=== PATIENT | male | born 1935 | race Caucasian/White ===

== ENCOUNTER 2022-09-17 11:11 | Observation (INO) | payer MEDICARE, SELFPAY ==
[2022-09-17] VITALS (51 sets, daily range): BP systolic 93–145; BP diastolic 47–77; PULSE 52–90; RESP 13–31; TEMP 36.6–36.8; O2SAT 95–100; BMI 22.2; BMI 22.1
--- NOTE | 2022-09-17 11:36 | ECG_ITS ---
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
--- NOTE | 2022-09-17 11:36 | XR_ITS ---
The [address] [address] Patient Name: ROBIN PAZ MRN: [id number] date: 1935 Sex: M Assigned Patient Location: ER Current Patient Location: ER Accession/Order Number: [id number] Exam Date: 09/17/2022 12:20 Report Date: 09/17/2022 12:35 At the request of: CASTRO STOCKTON Procedure: XR chest 1V EXAM: XR chest 1V HISTORY: . chest pain . COMPARISON: None. TECHNIQUE: Single view of the chest FINDINGS: Heart and vascularity are unremarkable. Lungs are free of focal infiltrates. There were a few small granuloma in the left lung base. EKG leads overlie the chest. IMPRESSION: Small granuloma noted in the left lower lobe. No infiltrates noted. Electronically authenticated by: HATTIE PANDYA Date: 09/17/2022 12:35
[2022-09-17 11:56] LABS: Basophils Percent Auto 0.5 % (0.2-2.0); Eosinophils Absolute Auto 0.1 10^3/uL (0.0-0.7); Hematocrit 30.4 % (42.0-54.0); Immature Granulocytes Abs Auto 0.04 10^3/uL (0.00-0.03); Immature Granulocytes Pct Auto 0.5 % (0.0-0.5); Lymphocytes Absolute Auto 0.9 10^3/uL (1.2-3.8); Mean Corpuscular HGB Conc 32.9 g/dL (29.9-35.2); Mean Corpuscular Hemoglobin 29.2 pg (25.9-34.0); Mean Corpuscular Volume 88.9 fL (80.0-94.0); Mean Platelet Volume 10.3 fL (9.5-13.5); Monocytes Absolute Auto 0.5 10^3/uL (0.3-0.8); Monocytes Percent Auto 5.9 % (1.7-12.0); Neutrophils Absolute Auto 6.3 10^3/uL (1.4-6.5); Neutrophils Percent Auto 81.1 % (43.0-75.0); Platelet Count 249 10^3/uL (150-450); Red Blood Count 3.42 10^6/uL (4.70-6.10); Red Cell Distribution Width 14.1 % (11.0-15.0); White Blood Count 7.8 10^3/uL (4.0-11.0)
[2022-09-17 12:29] LABS: Alanine Aminotransferase 18 U/L (16-63); Albumin Globulin Ratio 0.9; Albumin Level 2.9 g/dL (3.4-5.0); Alkaline Phosphatase 65 U/L (46-116); Anion Gap 9.2; Aspartate Amino Transferase 15 U/L (15-37); BUN Creatinine Ratio 16.7; Bilirubin Total 0.3 mg/dL (0.2-1.0); Calcium 8.1 mg/dL (8.5-10.1); Carbon Dioxide 27.2 mmol/L (21.0-32.0); Chloride 102 mmol/L (98-107); Estimated GFR (African America >60 (>=60); Estimated GFR (Non-African Ame >60 (>=60); Globulin 3.3 g/dL; Glucose 118 mg/dL (74-106); Potassium 3.4 mmol/L (3.5-5.1); Sodium 135 mmol/L (136-145); Total Protein 6.2 g/dL (6.4-8.2); Troponin I High Sensitivity 8.1 pg/mL (4.0-76.1)
--- NOTE | 2022-09-17 13:47 | ECG_ITS ---
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
[2022-09-17] MEDS: NITROGLYCERIN 0.4 MG TAB.SUBL PO (14:19)
--- NOTE | 2022-09-17 14:48 | ED.CHESTPAI1 ---
HPI - Chest Pain General Chief Complaint: Chest Pain Stated Complaint: CHEST PAIN Time Seen by Provider: 09/17/22 12:17 Source: family Mode of arrival: Wheelchair Limitations: no limitations History of Present Illness HPI narrative: Patient presents to emergency department complaining of chest pressure. He states his had intermittent chest pains in the last couple of days. He felt slightly short of breath. He denies any cough, fever, chills. Pain is worse when he exercises, however today when he was sitting down he developed the pain and it was not going away so he came in to be evaluated. Patient denies any lower extremity edema, cramping. He denies any trauma. He denies any palpitations, paresthesias, or weakness.She denies any upper respiratory infection symptoms. He denies any nausea, vomiting, diarrhea, constipation, abdominal pain. He denies any flank pain, hematuria, dysuria. Related Data Home Medications Medication Instructions Recorded Confirmed gabapentin 300 mg capsule 300 mg PO BID 09/17/22 09/17/22 hydrocodone 5 mg-acetaminophen 325 1 tab PO BID PRN pain 09/17/22 09/17/22 mg tablet losartan 25 mg tablet 25 mg PO DAILY 09/17/22 09/17/22 oxybutynin chloride 5 mg 5 mg PO BEDTIME 09/17/22 09/17/22 tablet,extended release 24 hr tamsulosin 0.4 mg capsule 0.4 mg PO BID 09/17/22 09/17/22 Allergies Allergy/AdvReac Type Severity Reaction Status Date / Time Penicillins Allergy Severe Rash Verified 09/17/22 11:32 Review of Systems ROS Narrative ROS: Unless otherwise stated in this report the patient's positive and negative responses for review of systems for constitutional, eyes, ENT, cardiovascular, respiratory, gastrointestinal, neurological, , musculoskeletal and integument systems and related systems to the presenting problem are either stated in the history of present illness or were not pertinent or were negative for the symptoms and/or complaints related to the presenting medical problem. [facility] Medical History (Updated 09/17/22 @ 18:47 by Ana Holcomb MD) Surgical History (Updated 09/17/22 @ 16:11 by Elena Starkey) Social History Smoking status: Former smoker Exam Narrative Exam Narrative: Nurses notes and vital signs reviewed and patient is not hypoxic. General: Nontoxic, Well-appearing and in no apparent distress. Skin: Warm, dry, no pallor noted. No Rash Head: Normocephalic, atraumatic. Neck: Supple, non-tender. Eye: Pupils are equal, round and EOMI. No scleral icterus. Ears, Nose, Mouth, and Throat: TM clear, no posterior oropharynx erythema or nasal mucosal hypertrophy, uvula is mid-line Oral mucosa is moist Cardiovascular: Regular Rate and Rhythm without murmur, gallop or rub. Respiratory: No accessory muscle use or respiratory distress. Lungs are clear to auscultation, no wheezing, rales or rhonchi Chest Wall: no tenderness Back: No midline thoracic or lumbar vertebral tenderness. No CVA tenderness Musculoskeletal: normal ROM, no calf or popliteal tenderness, no lower extremity edema/swelling GI: Abdomen is soft, non-distended. Normal bowel sounds. No masses appreciated. No tenderness to palpation. No rebound, guarding, or rigidity noted. Neurological: A&O x4. No cranial nerve dysfunction observed. No truncal ataxia. Moves all extremities. Sensation intact. Psychiatric: Cooperative and interactive. Normal mood and affect. Constitutional Vital Signs - 24 hr 09/17/22 11:32 09/17/22 11:29 09/17/22 11:30 Temperature 97.9 F Pulse Rate 77 Pulse Rate [Monitor] 84 Respiratory Rate 20 15 Blood Pressure 104/61 Blood Pressure [Left Arm] 104/61 Pulse Oximetry 95 96 96 Oxygen Delivery Method Room Air 09/17/22 11:46 09/17/22 11:47 09/17/22 11:47 Temperature Pulse Rate 86 83 83 Pulse Rate [Monitor] Respiratory Rate 17 16 20 Blood Pressure 100/58 L Blood Pressure [Left Arm] Pulse Oximetry 98 97 96 Oxygen Delivery Method 09/17/22 12:01 09/17/22 12:10 09/17/22 12:14 Temperature Pulse Rate 78 84 83 Pulse Rate [Monitor] Respiratory Rate 23 16 20 Blood Pressure Blood Pressure [Left Arm] Pulse Oximetry 95 97 97 Oxygen Delivery Method 09/17/22 12:15 09/17/22 12:31 09/17/22 12:40 Temperature Pulse Rate 79 72 79 Pulse Rate [Monitor] Respiratory Rate 18 20 15 Blood Pressure 93/48 L Blood Pressure [Left Arm] Pulse Oximetry 97 98 97 Oxygen Delivery Method 09/17/22 12:50 09/17/22 12:52 09/17/22 12:52 Temperature Pulse Rate 90 68 77 Pulse Rate [Monitor] Respiratory Rate 17 19 15 Blood Pressure 114/58 L Blood Pressure [Left Arm] Pulse Oximetry 98 98 98 Oxygen Delivery Method 09/17/22 13:00 09/17/22 13:00 09/17/22 13:32 Temperature Pulse Rate 65 71 79 Pulse Rate [Monitor] Respiratory Rate 20 19 16 Blood Pressure 106/47 L 106/47 L Blood Pressure [Left Arm] Pulse Oximetry 99 98 98 Oxygen Delivery Method 09/17/22 13:47 09/17/22 13:50 09/17/22 14:00 Temperature Pulse Rate 71 73 67 Pulse Rate [Monitor] Respiratory Rate 17 15 17 Blood Pressure 110/63 Blood Pressure [Left Arm] Pulse Oximetry 99 100 Oxygen Delivery Method 09/17/22 14:00 09/17/22 14:21 09/17/22 14:25 Temperature Pulse Rate 67 84 80 Pulse Rate [Monitor] Respiratory Rate 13 17 15 Blood Pressure 104/61 103/61 Blood Pressure [Left Arm] Pulse Oximetry 99 96 96 Oxygen Delivery Method 09/17/22 14:30 09/17/22 14:35 09/17/22 14:35 Temperature Pulse Rate 69 80 76 Pulse Rate [Monitor] Respiratory Rate 20 23 15 Blood Pressure 101/59 L 106/55 L 106/55 L Blood Pressure [Left Arm] Pulse Oximetry 98 96 97 Oxygen Delivery Method 09/17/22 14:40 09/17/22 14:45 09/17/22 14:50 Temperature Pulse Rate 85 69 65 Pulse Rate [Monitor] Respiratory Rate 13 17 15 Blood Pressure 107/56 L 107/51 L 109/63 Blood Pressure [Left Arm] Pulse Oximetry 100 97 98 Oxygen Delivery Method 09/17/22 14:55 09/17/22 15:00 09/17/22 15:06 Temperature Pulse Rate 68 73 73 Pulse Rate [Monitor] Respiratory Rate 17 31 H 20 Blood Pressure 118/59 L 111/58 L 107/73 Blood Pressure [Left Arm] Pulse Oximetry 98 98 99 Oxygen Delivery Method 09/17/22 15:10 09/17/22 15:16 09/17/22 15:20 Temperature Pulse Rate 72 72 69 Pulse Rate [Monitor] Respiratory Rate 20 20 14 Blood Pressure 108/63 113/51 L 107/57 L Blood Pressure [Left Arm] Pulse Oximetry 98 99 99 Oxygen Delivery Method 09/17/22 15:25 09/17/22 15:30 09/17/22 15:36 Temperature Pulse Rate 71 65 68 Pulse Rate [Monitor] Respiratory Rate 18 15 15 Blood Pressure 109/53 L 115/61 118/58 L Blood Pressure [Left Arm] Pulse Oximetry 100 98 100 Oxygen Delivery Method 09/17/22 15:40 09/17/22 15:45 09/17/22 15:50 Temperature Pulse Rate 69 81 68 Pulse Rate [Monitor] Respiratory Rate 14 15 23 Blood Pressure 109/65 118/65 118/60 Blood Pressure [Left Arm] Pulse Oximetry 98 98 98 Oxygen Delivery Method 09/17/22 15:55 09/17/22 16:01 09/17/22 16:05 Temperature Pulse Rate 64 66 72 Pulse Rate [Monitor] Respiratory Rate 16 24 18 Blood Pressure 118/64 122/70 H 123/69 H Blood Pressure [Left Arm] Pulse Oximetry 99 100 100 Oxygen Delivery Method 09/17/22 16:07 09/17/22 16:31 09/17/22 17:01 Temperature Pulse Rate 65 65 87 Pulse Rate [Monitor] Respiratory Rate 14 15 18 Blood Pressure 118/68 122/60 H 113/55 L Blood Pressure [Left Arm] Pulse Oximetry 99 98 98 Oxygen Delivery Method 09/17/22 17:01 09/17/22 17:31 Temperature Pulse Rate 79 71 Pulse Rate [Monitor] Respiratory Rate 15 18 Blood Pressure 113/55 L 121/63 H Blood Pressure [Left Arm] Pulse Oximetry 98 98 Oxygen Delivery Method Course Vital Signs Vital signs: Vital Signs Pulse Oximetry 96 09/17/22 11:29 Temperature 97.9 F 09/17/22 11:32 Pulse Rate 71 09/17/22 17:31 Respiratory Rate 18 09/17/22 17:31 Blood Pressure 121/63 H 09/17/22 17:31 Pulse Oximetry 98 09/17/22 17:31 Oxygen Delivery Method Room Air 09/17/22 11:32 MDM - Chest Pain MDM Narrative Medical decision making narrative: Patient had an IV established lab studies were done. EKG shows atrial fibrillation. Patient has a history of atrial fibrillation. The patient complaining of chest pain when he went to the bathroom he was given 1 nitroglycerin pill and symptoms resolved completely. EKG was repeated did not show anything acute. The patient has not had a stress test or echocardiogram in over a year. 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 Patient was discussed with Dr. Srivastava for admission. Differential Diagnosis Differential diagnosis: Likely pneumothorax, stable angina, unstable angina pectoris, atypical chest pain and st elevation myocardial infarction Lab Data Attestation: I reviewed the patient's lab results. Labs: Lab Results 09/17/22 09/17/22 09/17/22 Range/Units 11:44 14:27 17:44 WBC 7.8 (4.0-11.0) 10^3/uL RBC 3.42 L (4.70-6.10) 10^6/uL Hgb 10.0 L (14.0-18.0) g/dL Hct 30.4 L (42.0-54.0) % MCV 88.9 (80.0-94.0) fL MCH 29.2 (25.9-34.0) pg MCHC 32.9 (29.9-35.2) g/dL RDW 14.1 (11.0-15.0) % Plt Count 249 (150-450) 10^3/uL MPV 10.3 (9.5-13.5) fL Neut % (Auto) 81.1 H (43.0-75.0) % Lymph % (Auto) 11.0 L (20.5-60.0) % [place] % (Auto) 5.9 (1.7-12.0) % Eos % (Auto) 1.0 (0.9-7.0) % Baso % (Auto) 0.5 (0.2-2.0) % Neut # (Auto) 6.3 (1.4-6.5) 10^3/uL Lymph # (Auto) 0.9 L (1.2-3.8) 10^3/uL [place] # (Auto) 0.5 (0.3-0.8) 10^3/uL Eos # (Auto) 0.1 (0.0-0.7) 10^3/uL Baso # (Auto) 0.0 (0.0-0.1) 10^3/uL Sodium 135 L (136-145) mmol/L Potassium 3.4 L (3.5-5.1) mmol/L Chloride 102 (98-107) mmol/L Carbon Dioxide 27.2 (21.0-32.0) mmol/L Anion Gap 9.2 BUN 15.0 (7.0-18.0) mg/dL Creatinine 0.90 (0.70-1.30) mg/dL Est GFR ( Amer) >60 (>=60) Est GFR (Non-Af Amer) >60 (>=60) BUN/Creatinine Ratio 16.7 Glucose 118 H (74-106) mg/dL Calcium 8.1 L (8.5-10.1) mg/dL Total Bilirubin 0.3 (0.2-1.0) mg/dL AST 15 (15-37) U/L ALT 18 (16-63) U/L Troponin I High Sens 8.1 7.3 8.3 (4.0-76.1) pg/mL NT-Pro-B Natriuret Pep 453.0 (<=1800.0) pg/mL Total Protein 6.2 L (6.4-8.2) g/dL Albumin 2.9 L (3.4-5.0) g/dL Globulin 3.3 g/dL Albumin/Globulin Ratio 0.9 ECG Data Attestation: I personally reviewed and interpreted this ECG as follows: (Atrial fibrillation with a controlled rate. No acute ischemic changes.) Discharge Plan Discharge Chief Complaint: Chest Pain Clinical Impression: Chest pain Patient Disposition: Admitted as Observation Time of Disposition Decision: 18:05 Condition: Good
[2022-09-17 14:49] LABS: Troponin I High Sensitivity 7.3 pg/mL (4.0-76.1)
--- NOTE | 2022-09-17 17:12 | PC.NURSE ---
He reports the doctor was in briefly. He talked about getting food and also reports he will need it for his also.
[2022-09-17 18:06] LABS: Troponin I High Sensitivity 8.3 pg/mL (4.0-76.1)
[2022-09-17] MEDS: FAMOTIDINE/PF 20 MG/2 ML VIAL IV (20:44)
[2022-09-17] MEDS: HYDROCODONE/ACETAMINOPHEN 5-325 MG TABLET 1 TAB PO (21:46)
[2022-09-17] MEDS: GABAPENTIN 300 MG CAPSULE PO (21:46)
[2022-09-17] MEDS: TEMAZEPAM 15 MG CAPSULE PO (21:48)
[2022-09-18] VITALS: PULSE 67
[2022-09-18 02:00] VITALS: PULSE 65
[2022-09-18 04:01] VITALS: PULSE 57
[2022-09-18] MEDS: FAMOTIDINE/PF 20 MG/2 ML VIAL IV (05:08)
[2022-09-18 05:24] LABS: Basophils Percent Auto 0.7 % (0.2-2.0); Eosinophils Absolute Auto 0.3 10^3/uL (0.0-0.7); Eosinophils Percent Auto 5.1 % (0.9-7.0); Hematocrit 29.6 % (42.0-54.0); Hemoglobin 9.7 g/dL (14.0-18.0); Immature Granulocytes Abs Auto 0.02 10^3/uL (0.00-0.03); Immature Granulocytes Pct Auto 0.4 % (0.0-0.5); Lymphocytes Absolute Auto 1.8 10^3/uL (1.2-3.8); Lymphocytes Percent Auto 32.4 % (20.5-60.0); Mean Corpuscular HGB Conc 32.8 g/dL (29.9-35.2); Mean Corpuscular Hemoglobin 29.8 pg (25.9-34.0); Mean Corpuscular Volume 90.8 fL (80.0-94.0); Mean Platelet Volume 9.9 fL (9.5-13.5); Monocytes Absolute Auto 0.5 10^3/uL (0.3-0.8); Monocytes Percent Auto 9.6 % (1.7-12.0); Neutrophils Absolute Auto 2.8 10^3/uL (1.4-6.5); Neutrophils Percent Auto 51.8 % (43.0-75.0); Platelet Count 236 10^3/uL (150-450); Red Blood Count 3.26 10^6/uL (4.70-6.10); Red Cell Distribution Width 14.1 % (11.0-15.0); White Blood Count 5.4 10^3/uL (4.0-11.0)
[2022-09-18 05:46] VITALS: BP 119/62; PULSE 58; RESP 16; TEMP 36.4; O2SAT 96
[2022-09-18 06:02] VITALS: PULSE 63
[2022-09-18 06:06] LABS: Alanine Aminotransferase 17 U/L (16-63); Albumin Globulin Ratio 0.8; Albumin Level 2.6 g/dL (3.4-5.0); Alkaline Phosphatase 61 U/L (46-116); Anion Gap 8.1; Aspartate Amino Transferase 12 U/L (15-37); BUN Creatinine Ratio 16.5; Bilirubin Total 0.3 mg/dL (0.2-1.0); Calcium 7.8 mg/dL (8.5-10.1); Carbon Dioxide 30.5 mmol/L (21.0-32.0); Chloride 105 mmol/L (98-107); Estimated GFR (African America >60 (>=60); Estimated GFR (Non-African Ame >60 (>=60); Globulin 3.1 g/dL; Glucose 79 mg/dL (74-106); Potassium 3.6 mmol/L (3.5-5.1); Sodium 140 mmol/L (136-145); Total Protein 5.7 g/dL (6.4-8.2)
[2022-09-18 06:09] LABS: Troponin I High Sensitivity 11.1 pg/mL (4.0-76.1)
[2022-09-18 08:05] VITALS: PULSE 57
--- NOTE | 2022-09-18 08:51 | CA_ITS ---
Patient: ROBIN PAZ Exam Date: 09/18/2022 : 1935 Gender:M Ordering : DR Rajesh Srivastava . Admission #: [id number] Family : JAYLON LYNCH [facility] Order #: [id number] CLICK HERE TO VIEW EXAM ECHOCARDIOGRAM REPORT PROCEDURE: CA ECHO DOPPLER COMPLETE INDICATIONS: Chest pain COMPARISON: None. DESCRIPTION: COMPLETE ECHOCARDIOGRAM Real-time transthoracic echocardiography with 2D, M-mode, spectral and color flow Doppler performed. QUALITY: Technical quality was good. LEFT VENTRICLE: Normal chamber size. Mild concentric left ventricular hypertrophy. Global left ventricular systolic function is normal. LV EF: Estimated left ventricular ejection fraction is 55-60% DIASTOLIC: Diastolic function is indeterminate. ATRIAL SEPTUM: LEFT ATRIUM: Mild dilatation. RIGHT ATRIUM: Normal chamber size. RIGHT VENTRICLE: Normal chamber size. Normal right ventricular systolic function. TRICUSPID VALVE: Normal mobility and thickness. No stenosis with mild regurgitation. Mild pulmonary hypertension. RVSP 36 mmHg MITRAL VALVE: Normal mobility and thickness. No evidence of mitral valve stenosis. There is no mitral annular calcification. Mild mitral regurgitation. AORTIC VALVE: Normal trileaflet appearance. Mildly calcified aortic valve. Mildly diminished mobility. No evidence of aortic valve stenosis. Trivial aortic regurgitation. AORTIC ROOT: Moderately dilated, measuring 4.4 cm. 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 PULMONIC VALVE: Normal thickness and mobility. No stenosis. No regurgitation. PERICARDIUM: No evidence of pericardial effusion. IVC: Collapses with inspirations. Normal size. PLEURA: CONCLUSION: 1. Normal ventricular systolic function. Estimated LVEF is 55 to 60%. 2. Mild mitral and tricuspid regurgitation. 3. Mildly calcified aortic valve with no significant stenosis or regurgitation. 4. Mildly elevated right-sided pressures. 5. 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 Adult Echocardiography Procedure Report Left Ventricle LVEDD (3.7 - 5.6 cm): 3.80 cm LVESD (2.2 - 4.0 cm): 2.50 cm LVIVS thickness (0.6 - 1.2 cm): 1.32 cm LVPW thickness (0.5 - 1.0 cm): 1.33 cm e': 0.08 m/s E - e': 8.90 LVOT Max Gradient: 3.52 mm[Hg], 4.06 mm[Hg] LVOT Area (cm2): 0.97 m/s Peak Velocity (LVOT): 0.94 m/s, 1.01 m/s Mean Velocity (LVOT): 0.69 m/s LVOT Diameter 2.23 cm Left Ventricular Ejection Fraction: 55-60 % Left Atrium LA Volume Index (2D A2C): 38.37 ml/m2 Left Atrium Systolic Dimension: 3.27 cm Mitral Valve MV E to A Ratio: 1.10 Mitral Valve A-Wave Peak Velocity: 0.65 m/s Mitral Valve E-Wave Peak Velocity: 0.71 m/s Right Ventricle RV Internal Diastolic Dimension: 3.77 cm Aorta AO Root Diam: 4.43 cm Ascending Ao Diam: 4.49 cm Aortic Valve AoV Area (Peak [place]): 2.40 cm2, 2.31 cm2 AoV Area (VTI): 2.27 cm2, 2.39 cm2 Peak Velocity(Antegrade Flow): 1.58 m/s Peak Gradient(Antegrade Flow): 10.04 mm[Hg] Mean Velocity(Antegrade Flow): 1.08 m/s Mean Gradient(Antegrade Flow): 5.33 mm[Hg] Velocity Time Integral: 42.15 cm Tricuspid Valve Peak Velocity (Regurgitant Flow): 2.63 m/s, 2.86 m/s, 2.29 m/s, 2.27 m/s, 2.33 m/s Pulmonic Valve Mean Gradient: 1.43 mm[Hg], 1.42 mm[Hg] Mean Velocity: 0.58 m/s, 0.57 m/s Peak Velocity: 0.73 m/s Peak Gradient: 2.13 mm[Hg], 2.13 mm[Hg] Right Atrium Right Atrium Systolic Pressure: 43.34 ml, 43.34 ml Dictated by: Kun uG M.D. on 09/20/2022 at 10:08 Approved by: Kun Gu M.D. on 09/20/2022 at 10:14
--- NOTE | 2022-09-18 09:46 | P.HP_ITS ---
H&P: HPI History of Present Illness Chief complaint: CHEST PAIN Narrative: Patient presented to the emergency room with left-sided chest pain and pressure into the left arm. Resolved essentially in the emergency room. Work-up so far completed is negative. Echocardiogram is pending. [facility] Medical History (Updated 09/17/22 @ 18:47 by Ana Holcomb MD) Surgical History (Updated 09/17/22 @ 16:11 by Elena Starkey) Social History Smoking status: Former smoker Meds Home Medications and Allergies Home Medications Medication Instructions Recorded Confirmed Type gabapentin 300 mg capsule 300 mg PO BID 09/17/22 09/17/22 History hydrocodone 5 mg-acetaminophen 325 1 tab PO BID PRN pain 09/17/22 09/17/22 History mg tablet losartan 25 mg tablet 25 mg PO DAILY 09/17/22 09/17/22 History oxybutynin chloride 5 mg 5 mg PO BEDTIME 09/17/22 09/17/22 History tablet,extended release 24 hr tamsulosin 0.4 mg capsule 0.4 mg PO BID 09/17/22 09/17/22 History aspirin 81 mg capsule 81 mg PO DAILY #30 caps 09/18/22 Rx Allergies Allergy/AdvReac Type Severity Reaction Status Date / Time Penicillins Allergy Severe Rash Verified 09/17/22 11:32 Exam Constitutional Vital Signs - 24 hr 09/17/22 11:32 09/17/22 11:29 09/17/22 11:30 Temperature 97.9 F Pulse Rate 77 Pulse Rate [Monitor] 84 Respiratory Rate 20 15 Blood Pressure 104/61 Blood Pressure [Left Arm] 104/61 Pulse Oximetry 95 96 96 Oxygen Delivery Method Room Air 09/17/22 11:46 09/17/22 11:47 09/17/22 11:47 Temperature Pulse Rate 86 83 83 Pulse Rate [Monitor] Respiratory Rate 17 16 20 Blood Pressure 100/58 L Blood Pressure [Left Arm] Pulse Oximetry 98 97 96 Oxygen Delivery Method 09/17/22 12:01 09/17/22 12:10 09/17/22 12:14 Temperature Pulse Rate 78 84 83 Pulse Rate [Monitor] Respiratory Rate 23 16 20 Blood Pressure Blood Pressure [Left Arm] Pulse Oximetry 95 97 97 Oxygen Delivery Method 09/17/22 12:15 09/17/22 12:31 09/17/22 12:40 Temperature Pulse Rate 79 72 79 Pulse Rate [Monitor] Respiratory Rate 18 20 15 Blood Pressure 93/48 L Blood Pressure [Left Arm] Pulse Oximetry 97 98 97 Oxygen Delivery Method 09/17/22 12:50 09/17/22 12:52 09/17/22 12:52 Temperature Pulse Rate 90 68 77 Pulse Rate [Monitor] Respiratory Rate 17 19 15 Blood Pressure 114/58 L Blood Pressure [Left Arm] Pulse Oximetry 98 98 98 Oxygen Delivery Method 09/17/22 13:00 09/17/22 13:00 09/17/22 13:32 Temperature Pulse Rate 65 71 79 Pulse Rate [Monitor] Respiratory Rate 20 19 16 Blood Pressure 106/47 L 106/47 L Blood Pressure [Left Arm] Pulse Oximetry 99 98 98 Oxygen Delivery Method 09/17/22 13:47 09/17/22 13:50 09/17/22 14:00 Temperature Pulse Rate 71 73 67 Pulse Rate [Monitor] Respiratory Rate 17 15 17 Blood Pressure 110/63 Blood Pressure [Left Arm] Pulse Oximetry 99 100 Oxygen Delivery Method 09/17/22 14:00 09/17/22 14:21 09/17/22 14:25 Temperature Pulse Rate 67 84 80 Pulse Rate [Monitor] Respiratory Rate 13 17 15 Blood Pressure 104/61 103/61 Blood Pressure [Left Arm] Pulse Oximetry 99 96 96 Oxygen Delivery Method 09/17/22 14:30 09/17/22 14:35 09/17/22 14:35 Temperature Pulse Rate 69 80 76 Pulse Rate [Monitor] Respiratory Rate 20 23 15 Blood Pressure 101/59 L 106/55 L 106/55 L Blood Pressure [Left Arm] Pulse Oximetry 98 96 97 Oxygen Delivery Method 09/17/22 14:40 09/17/22 14:45 09/17/22 14:50 Temperature Pulse Rate 85 69 65 Pulse Rate [Monitor] Respiratory Rate 13 17 15 Blood Pressure 107/56 L 107/51 L 109/63 Blood Pressure [Left Arm] Pulse Oximetry 100 97 98 Oxygen Delivery Method 09/17/22 14:55 09/17/22 15:00 09/17/22 15:06 Temperature Pulse Rate 68 73 73 Pulse Rate [Monitor] Respiratory Rate 17 31 H 20 Blood Pressure 118/59 L 111/58 L 107/73 Blood Pressure [Left Arm] Pulse Oximetry 98 98 99 Oxygen Delivery Method 09/17/22 15:10 09/17/22 15:16 09/17/22 15:20 Temperature Pulse Rate 72 72 69 Pulse Rate [Monitor] Respiratory Rate 20 20 14 Blood Pressure 108/63 113/51 L 107/57 L Blood Pressure [Left Arm] Pulse Oximetry 98 99 99 Oxygen Delivery Method 09/17/22 15:25 09/17/22 15:30 09/17/22 15:36 Temperature Pulse Rate 71 65 68 Pulse Rate [Monitor] Respiratory Rate 18 15 15 Blood Pressure 109/53 L 115/61 118/58 L Blood Pressure [Left Arm] Pulse Oximetry 100 98 100 Oxygen Delivery Method 09/17/22 15:40 09/17/22 15:45 09/17/22 15:50 Temperature Pulse Rate 69 81 68 Pulse Rate [Monitor] Respiratory Rate 14 15 23 Blood Pressure 109/65 118/65 118/60 Blood Pressure [Left Arm] Pulse Oximetry 98 98 98 Oxygen Delivery Method 09/17/22 15:55 09/17/22 16:01 09/17/22 16:05 Temperature Pulse Rate 64 66 72 Pulse Rate [Monitor] Respiratory Rate 16 24 18 Blood Pressure 118/64 122/70 H 123/69 H Blood Pressure [Left Arm] Pulse Oximetry 99 100 100 Oxygen Delivery Method 09/17/22 16:07 09/17/22 16:31 09/17/22 17:01 Temperature Pulse Rate 65 65 87 Pulse Rate [Monitor] Respiratory Rate 14 15 18 Blood Pressure 118/68 122/60 H 113/55 L Blood Pressure [Left Arm] Pulse Oximetry 99 98 98 Oxygen Delivery Method 09/17/22 17:01 09/17/22 17:31 09/17/22 18:51 Temperature 98.3 F Pulse Rate 79 71 52 L Pulse Rate [Monitor] Respiratory Rate 15 18 18 Blood Pressure 113/55 L 121/63 H Blood Pressure [Left Arm] 145/77 H Pulse Oximetry 98 98 95 Oxygen Delivery Method Room Air 09/17/22 20:06 09/17/22 20:00 09/17/22 21:05 Temperature 98 F Pulse Rate 74 67 Pulse Rate [Monitor] 67 Respiratory Rate 18 Blood Pressure Blood Pressure [Left Arm] 122/64 H Pulse Oximetry 96 Oxygen Delivery Method 09/17/22 22:02 09/17/22 22:00 09/18/22 00:00 Temperature 98 F Pulse Rate 80 80 67 Pulse Rate [Monitor] Respiratory Rate 18 Blood Pressure Blood Pressure [Left Arm] 122/64 H Pulse Oximetry 96 Oxygen Delivery Method Room Air 09/18/22 02:00 09/18/22 04:01 09/18/22 05:46 Temperature 97.6 F Pulse Rate 65 57 L 58 L Pulse Rate [Monitor] Respiratory Rate 16 Blood Pressure Blood Pressure [Left Arm] 119/62 Pulse Oximetry 96 Oxygen Delivery Method Room Air 09/18/22 06:02 09/18/22 08:05 Temperature Pulse Rate 63 57 L Pulse Rate [Monitor] Respiratory Rate Blood Pressure Blood Pressure [Left Arm] Pulse Oximetry Oxygen Delivery Method Chest Common normals: inspection of chest normal Respiratory Common normals: normal respiratory effort Cardio Rate: other Rhythm: abnormal rhythm Extremity Common normals: normal to inspection Neuro Sensorium/orientation: awake, alert and oriented to person Results Labs Labs: Short CBC 09/17/22 09/18/22 Range/Units 11:44 05:07 WBC 7.8 5.4 (4.0-11.0) 10^3/uL Hgb 10.0 L 9.7 L (14.0-18.0) g/dL Hct 30.4 L 29.6 L (42.0-54.0) % Plt Count 249 236 (150-450) 10^3/uL BMP 09/17/22 09/18/22 11:44 05:07 Sodium 135 L 140 Potassium 3.4 L 3.6 Chloride 102 105 Carbon Dioxide 27.2 30.5 BUN 15.0 14.0 Creatinine 0.90 0.85 Glucose 118 H 79 Calcium 8.1 L 7.8 L Liver Function 09/17/22 09/18/22 Range/Units 11:44 05:07 Total Bilirubin 0.3 0.3 (0.2-1.0) mg/dL AST 15 12 L (15-37) U/L ALT 18 17 (16-63) U/L Albumin 2.9 L 2.6 L (3.4-5.0) g/dL Assessment and Plan Assessment and Plan (1) Chest pain: Plan Discharge to home, can follow-up for stress test as an outpatient. Patient comfortable with that
--- NOTE | 2022-09-18 10:25 | CM.NOTE ---
Rounds made with Dr. Srivastava. Plan for discharge is today after Echo completed. Mr. Arrington lives at home with his and normally does all the yard work and other ADL's. 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 Mr. Arrington does not believe he will need any services at home.
== END 2022-09-18 11:40 | disposition home or self-care (01) ==
LOC: ER 18:12 → MS 18:18
PROVIDERS: Admitting Provider Family Medicine; Emergency Provider Emergency Medicine; PCP Nurse Practitioner; Visit Provider Family Medicine
DX: R07.9 Chest pain, unspecified (principal); Z87.891 Personal history of nicotine dependence; Z79.82 Long term (current) use of aspirin; Z79.899 Other long term (current) drug therapy; R06.02 Shortness of breath; I48.91 Unspecified atrial fibrillation
CPT/HCPCS: 36415; 71045; 80053; 83880; 84484; 85025; 93005; 93306; 99285; G0378

== ENCOUNTER 2023-05-29 09:31 | Outpatient (OUT) | payer MEDICARE, SELFPAY ==
[2023-05-29 10:24] LABS: Bilirubin Urine NEGATIVE (NEGATIVE); Blood Urine TRACE-I (NEGATIVE); Clarity Urine CLEAR (CLEAR); Color Urine LT. YELLOW (YELLOW); Creatinine Urine Random 48.58 mg/dL (20.00-300.00); Glucose Urine UA NEGATIVE (NEGATIVE); Ketones Urine NEGATIVE (NEGATIVE); Leukocyte Esterase Urine NEGATIVE (NEGATIVE); Microalbum Creatinine Ratio Ur 26.7 mg/g (0.0-29.9); Microalbumin Urine Random <1.3 mg/dL (<=30.0); Nitrite Urine NEGATIVE (NEGATIVE); Protein Urine NEGATIVE (NEG/TRACE); Specific Gravity Urine 1.015 (1.005-1.025); Urobilinogen Urine 0.2 EU/dL (0.2-1.0); pH Urine 7.5 (5.0-9.0)
[2023-05-29 10:30] LABS: Urine Microscopic Indicated YES
[2023-05-29 10:32] LABS: Basophils Absolute Auto 0.1 10^3/uL (0.0-0.1); Basophils Percent Auto 1.1 % (0.2-2.0); Eosinophils Absolute Auto 0.3 10^3/uL (0.0-0.7); Eosinophils Percent Auto 4.7 % (0.9-7.0); Hematocrit 32.7 % (42.0-54.0); Hemoglobin 10.4 g/dL (14.0-18.0); Immature Granulocytes Abs Auto 0.03 10^3/uL (0.00-0.03); Immature Granulocytes Pct Auto 0.6 % (0.0-0.5); Lymphocytes Absolute Auto 1.3 10^3/uL (1.2-3.8); Mean Corpuscular HGB Conc 31.8 g/dL (29.9-35.2); Mean Corpuscular Hemoglobin 29.1 pg (25.9-34.0); Mean Corpuscular Volume 91.3 fL (80.0-94.0); Mean Platelet Volume 10.6 fL (9.5-13.5); Monocytes Absolute Auto 0.4 10^3/uL (0.3-0.8); Monocytes Percent Auto 7.9 % (1.7-12.0); Neutrophils Absolute Auto 3.2 10^3/uL (1.4-6.5); Neutrophils Percent Auto 60.7 % (43.0-75.0); Platelet Count 311 10^3/uL (150-450); Red Blood Count 3.58 10^6/uL (4.70-6.10); Red Cell Distribution Width 13.5 % (11.0-15.0); White Blood Count 5.3 10^3/uL (4.0-11.0)
[2023-05-29 10:36] LABS: Bacteria Urine NONE SEEN #/HPF (NONE SEEN); Cast Seen? NONE SEEN #/LPF (NONE SEEN); Crystals Seen? None Seen #/HPF (None Seen); Mucus Urine NONE SEEN (NONE SEEN); Squamous Epithelial Cell Urine RARE #/LPF (NONE/RARE); Urine Culture Indicated NO; WBC Urine 0-2 #/HPF (NONE SEEN)
[2023-05-29 11:53] LABS: Alanine Aminotransferase 23 U/L (16-63); Albumin Globulin Ratio 0.8; Alkaline Phosphatase 70 U/L (46-116); Anion Gap 7.7; Aspartate Amino Transferase 17 U/L (15-37); BUN Creatinine Ratio 12.2; Bilirubin Total 0.4 mg/dL (0.2-1.0); Calcium 8.5 mg/dL (8.5-10.1); Carbon Dioxide 33.4 mmol/L (21.0-32.0); Chloride 103 mmol/L (98-107); Chol HDL Ratio 2.8; Cholesterol 179 mg/dL (<=200); Estimated GFR (African America >60 (>=60); Estimated GFR (Non-African Ame >60 (>=60); Globulin 3.8 g/dL; Glucose 82 mg/dL (74-106); HDL Cholesterol 64 mg/dL (40-60); Potassium 4.1 mmol/L (3.5-5.1); Sodium 140 mmol/L (136-145); Total Protein 6.8 g/dL (6.4-8.2); Triglycerides 125 mg/dL (<=150)
[2023-05-29 12:03] LABS: Prostate Specific Antigen Dx 10.79 ng/mL (<=4.00)
== END 2023-05-29 09:32 | disposition home or self-care (01) ==
LOC: LAB 09:34
PROVIDERS: PCP Nurse Practitioner; Visit Provider Nurse Practitioner
DX: D50.9 Iron deficiency anemia, unspecified (principal); I48.0 Paroxysmal atrial fibrillation; E53.8 Deficiency of other specified B group vitamins; E55.9 Vitamin D deficiency, unspecified; I10 Essential (primary) hypertension; N40.1 Benign prostatic hyperplasia with lower urinary tract symptoms
CPT/HCPCS: 36415; 80053; 80061; 81001; 82043; 82306; 82570; 82607; 83540; 84153; 85025

== ENCOUNTER 2024-02-27 07:54 | Outpatient (OUT) | payer MEDICARE, SELFPAY ==
--- NOTE | 2024-02-27 07:56 | CA_ITS ---
Patient Name: ROBIN PAZ MR#: [id number] : 1935 Exam Date: 02/27/2024 Ordering Doctor: DR DANGELO GU M.D. ECHOCARDIOGRAM REPORT PROCEDURE: CA ECHO DOPPLER COMPLETE INDICATIONS: Aortic aneurysm COMPARISON: None. DESCRIPTION: COMPLETE ECHOCARDIOGRAM Real-time transthoracic echocardiography with 2D, M-mode, spectral and color flow Doppler performed. QUALITY: Technical quality was good. LEFT VENTRICLE: Normal chamber size. Mild concentric left ventricular hypertrophy. Global left ventricular systolic function is normal. LV EF: Visual estimation of left ventricular ejection fraction is 60-65% DIASTOLIC: Diastolic function is indeterminate. ATRIAL SEPTUM: LEFT ATRIUM: Normal chamber size. RIGHT ATRIUM: Normal chamber size. RIGHT VENTRICLE: Normal chamber size. Normal right ventricular systolic function. TRICUSPID VALVE: Normal mobility and thickness. No stenosis with mild regurgitation. Doppler studies suggest mild pulmonary hypertension. RVSP 36 mmHg MITRAL VALVE: Normal mobility and thickness. No evidence of mitral valve stenosis. There is no mitral annular calcification. Mild mitral regurgitation. AORTIC VALVE: Normal trileaflet appearance. Mildly calcified aortic valve. Normal leaflet mobility. No evidence of aortic valve stenosis. DVI 0.7. Trivial aortic regurgitation. AORTIC ROOT: Moderately dilated, measuring 4.3 cm. 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 PULMONIC VALVE: Normal thickness and mobility. No stenosis. No regurgitation. PERICARDIUM: No evidence of pericardial effusion. IVC: Collapses with inspirations. Normal size. PLEURA: CONCLUSION: 1. Mild concentric left ventricular hypertrophy with normal systolic function. Estimated LVEF is 60 to 65%. 2. Normal right ventricular size and systolic function. 3. Mild mitral and tricuspid regurgitation. 4. The aortic valve is mildly calcified with no stenosis and trivial regurgitation. 5. 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 6. No pericardial effusion. Adult Echocardiography Procedure Report Left Ventricle LVEDD (3.7 - 5.6 cm): 4.20 cm LVESD (2.2 - 4.0 cm): 3.00 cm LVIVS thickness (0.6 - 1.2 cm): 1.16 cm LVPW thickness (0.5 - 1.0 cm): 0.93 cm e': 0.09 m/s E - e': 7.84 LVOT Max Gradient: 3.62 mm[Hg], 4.33 mm[Hg] LVOT Area (cm2): 1.00 m/s Peak Velocity (LVOT): 0.95 m/s, 1.04 m/s Mean Velocity (LVOT): 0.76 m/s LVOT Diameter 2.00 cm Left Ventricular Ejection Fraction: 60-65 % Left Atrium LA Volume Index (2D A2C): 25.24 ml/m2 Left Atrium Systolic Dimension: 3.04 cm Mitral Valve MV E to A Ratio: 0.86 Mitral Valve A-Wave Peak Velocity: 0.81 m/s Mitral Valve E-Wave Peak Velocity: 0.70 m/s Right Ventricle RV Internal Diastolic Dimension: 3.54 cm Aorta AO Root Diam: 4.29 cm Ascending Ao Diam: 4.47 cm Aortic Valve AoV Area (Peak Tryo): 2.06 cm2, 1.96 cm2 AoV Area (VTI): 1.81 cm2, 1.74 cm2 Peak Velocity(Antegrade Flow): 1.52 m/s Peak Gradient(Antegrade Flow): 9.25 mm[Hg] Mean Velocity(Antegrade Flow): 1.03 m/s Mean Gradient(Antegrade Flow): 4.95 mm[Hg] Velocity Time Integral: 35.45 cm Tricuspid Valve Peak Velocity (Regurgitant Flow): 2.24 m/s, 2.89 m/s, 2.50 m/s Pulmonic Valve Mean Gradient: 1.10 mm[Hg], 2.33 mm[Hg] Mean Velocity: 0.48 m/s, 0.73 m/s Peak Velocity: 0.86 m/s Peak Gradient: 2.16 mm[Hg], 3.81 mm[Hg] Right Atrium Right Atrium Systolic Pressure: 30.37 ml, 30.37 ml Dictated by: Dangelo Gu M.D. on 02/27/2024 at 16:44 Approved by: Dangelo Gu M.D. on 02/27/2024 at 16:52
--- OUTSIDE RECORDS SUMMARY | 2024-02-27 08:05 | XMS_ITS | CCD ---
Author Organization [facility] CliniSywa Care Team Providers Care Die Cutter Diamond Name Role Phone LITO CARDENASMatt JANA Referring Unavailable LITO CARDENASMatt JANA Primary Care Unavailable UNKNOWN, PROVIDER Attending Unavailable UNKNOWN, PROVIDER Admitting Unavailable Irvin White Primary Care Physician LUCIANA NICOLAS Primary Care Physician Wesley Diaz Primary Care Unavailable Don Zhang Attending Unavailable Don Zhang Admitting Unavailable HEIDE, DR PIERSON Admitting Unavailable MOUKABROOKLYNN, DR PIERSON Attending Unavailable AICHHOLZ, CLINICAL NEUROPSYCHOLOGIST LUCIANA Primary Care Unavailable MOUKABROOKLYNN, DR PIERSON Consulting Unavailable AICHHOLZ, CLINICAL NEUROPSYCHOLOGIST LUCIANA Primary Care Unavailable CASTRO REYES Admitting Unavailable KATH ., CASTRO Attending Unavailable KATH .MICHAELID Consulting Unavailable MEGAN, MONSTER Admitting Unavailable MONSTER GUZMAN Attending Unavailable IRVIN WHITE Primary Care Unavailable AICHHOLZ, CLINICAL NEUROPSYCHOLOGIST LUCIANA Admitting Unavailable AICHHOLZ, CLINICAL NEUROPSYCHOLOGIST LUCIANA Attending Unavailable AICHHOLZ, CLINICAL NEUROPSYCHOLOGIST LUCIANA Primary Care Unavailable MEGAN, MONSTER Admitting Unavailable MONSTER GUZMAN Attending Unavailable AICHHOLZ, CLINICAL NEUROPSYCHOLOGIST LUCIANA Primary Care Unavailable MEGAN, MONSTER Consulting Unavailable AICHHOLZ, CLINICAL NEUROPSYCHOLOGIST LUCIANA Admitting Unavailable AICHHOLZ, CLINICAL NEUROPSYCHOLOGIST LUCIANA Attending Unavailable AICHHOLZ, CLINICAL NEUROPSYCHOLOGIST LUCIANA Primary Care Unavailable AICHHOLZ, CLINICAL NEUROPSYCHOLOGIST LUCIANA Consulting Unavailable DR DON LUNA Admitting Unavailable MILKA Reid, DR HAMILTON Attending Unavailable AICHHOLZ, CLINICAL NEUROPSYCHOLOGIST LUCIANA Primary Care Unavailable DR DON LUNA Consulting Unavailable JESÚS CAR Attending Unavailable DANGELO JAEGER Attending Unavailable DANGELO JAEGER Attending Unavailable Filipe Polanco MD Primary Care Provider [phone] Filipe Polanco MD Primary Care Provider Fidencio TRAVEL COORDINATOR, Luciana Unavailable Don ZHANG Attending Unavailable Don ZHANG Attending Unavailable Don ZHANG Attending Unavailable Don ZHANG Attending Unavailable FIDENCIO, LUCIANA Attending Unavailable FADY FOX Attending Unavailable LUCIANA NICOLAS Referring Unavailable FIDENCIO, LUCIANA Attending Unavailable FIDENCIO, LUCIANA Attending Unavailable Fidencio TRAVEL COORDINATOR, Luciana Unavailable Allergies Allergy Classification Reported Allergen(s) Allergy Type Date of Onset Reaction(s) Facility (11 sources) Penicillins; Translations: [penicillins] Drug allergy (disorder) 3 Unknown (qualifier value) [facility] Repository (7 sources) Dicloxacillin; Translations: [dicloxacillin] Drug Allergy 6 Other (qualifier value) [facility] (1 source) Unable to Assess Drug allergy (disorder) 2 [facility] Repository (4 sources) Penicillin G Drug Allergy 3 Unknown [facility] (1 source) Penicillins Drug Intolerance 3 Other [facility] Medications Current Medications Medication Drug Class(es) Dates Sig (Normalized) Sig (Original) acetaminophen 325 mg / HYDROcodone bitartrate 5 mg oral tablet (6 sources) Opioid Agonist Start: 01-29-2024 End: 02-28-2024 take 1 tablet by mouth once HYDROcodone-aceta minophen ([place]) 5-325 MG tablet Indications: Phantom pain Take 1 tablet by mouth every 12 (twelve) hours if needed for severe pain 60 tablet 01/29/2024 02/28/2024 Active Start: 05-16-2023 End: 06-15-2023 take 1 tablet by mouth twice daily as needed for pain HYDROcodone-acetaminophen ([place]) 5-325 MG tablet Indications: Phantom pain (CMS/HCC) Take 1 tablet by mouth 2 (two) times a day as needed for severe pain 60 tablet 0 05/16/2023 06/15/2023 Active Start: 05-01-2022 [place] 325 mg-7 .5 mg oral tablet 1 tab(s), Oral, Once, 1 tab(s), Refill(s) 0, Take 1 hour prior to procedure. Don't drive or operate machinery while taking this medication., [facility] [id number], 185, cm, 02/13/22 11:34:00 EDT, Height/Length Dosing, 74.8, kg, 02/13/22 11:34:00 E... Start Date: 05/01/22 Status: Ordered apixaban 2.5 mg oral tablet (6 sources) Factor Xa Inhibitor Start: 10-30-2022 Eliquis 2. 5 mg oral tablet Refills(s) 0 Start Date: 06/11/23 Status: Ordered Aspirin (4 sources) Platelet Aggregation Inhibitor, Nonsteroidal Anti-inflammatory Drug Start: 09-24-2019 aspirin Start Date: 09/24/19 Status: Ordered ciprofloxacin 250 mg oral tablet (2 sources) Quinolone Antimicrobial Start: 12-12-2021 take 1 tablet by mouth twice daily Cipro 250 mg Tab 250 mg = 1 tab(s), Oral, BID, # 42 tab(s), Refills(s) 0, Pharmacy: [facility] [id number], 185, cm, 12/12/21 12:02:00 EDT, Height/Length Dosing, 74.8, kg, 12/12/21 12:02:00 EDT, Weight Dosing Start Date: 12/12/21 Status: Ordered Start: 03-28-2021 take 1 mg by mouth e very twelve hours Cipro 500 mg Tab mg tab(s), Oral, q12hr, Refills(s) 0 Start Date: 03/28/21 Status: Ordered ferrous gluconate 256 mg oral tablet (1 source) Start: 12-08-2019 ferrous glucon ate 256 mg (28 mg elemental iron) oral tablet 256 mg = 1 tab(s), Oral, Daily, # 100 tab(s), Refills(s) 0 Start Date: 12/08/19 Status: Ordered ferrous sulfate 325 mg oral tablet (1 source) Start: 11-21-2023 End: 02-19-2024 take 1 tablet by mouth at mealtime ferrous sulfate 325 (65 Fe) MG tablet Indications: Iron deficiency anemia, unspecified iron deficiency anemia type Take 1 tablet (325 mg) by mouth in the morning. Take with meals. 90 tablet 1 11/21/2023 02/19/2024 Active HYDROcodone (2 sources) Opioid Agonist Start: 03-28-2021 hydrocodone Or al, Refills(s) 0 Start Date: 03/28/21 Status: Ordered Iron 100 Plus (1 source) Start: 03-28-2021 Iron 100 Plus Oral, Daily, Refill(s) 0 Start Date: 03/28/21 Status: Ordered Iron Chews (2 sources) Start: 12-01-2022 take 1 mg by mouth once daily Iron Chews mg, Oral, Daily, Refills(s) 0 Start Date: 12/01/22 Status: Ordered losartan potassium 25 mg oral tablet (11 sources) Angiotensin 2 Receptor Getachew Start: 03-16-2023 End: 03-26-2024 take 1 tablet by mouth every other day losartan (Cozaar) 25 MG tablet Take 25 mg by mouth every other day 1 tablet by mouth every other day 03/16/2023 03/26/2024 Active Start: 03-16-2023 End: 03-26-2024 take 1 tablet by mouth every week losartan (Cozaar) 25 MG tablet Take 25 mg by mouth 1 (one) time per week 0 03/16/2023 03/26/2024 Active Start: 12-10-2020 take 1 mg by mouth once daily losartan 25 mg Tab mg tab(s), Oral, Daily, Refills(s) 0 Start Date: 12/10/20 Status: Ordered metroNIDAZOLE 500 mg oral tablet (1 source) Nitroimidazole Antimicrobial Start: 03-28-2021 take 1 mg by mouth three times daily MetroNIDAZOLE 500 mg Tab mg tab(s), Oral, TID, Refills(s) 0 Start Date: 03/28/21 Status: Ordered 24 hr oxybutynin chloride 5 mg extended release oral tablet (8 sources) Cholinergic Muscarinic Antagonist Start: 09-02-2022 take 1 tablet by mouth every twenty-four hours at bedtime oxybutynin XL (Ditropan-XL) 5 MG 24 hr tablet Take 1 tablet by mouth at bedtime 0 09/02/2022 Active Start: 12-12-2021 take 1 tablet by jerel th at bedtime oxybutynin 5 mg ER Tab 5 mg = 1 tab(s), Oral, Bedtime, # 30 tab(s), Refills(s) 11, Pharmacy: [facility] [id number], 185, cm, 12/12/21 12:02:00 EDT, Height/Length Dosing, 74.8, kg, 12/12/21 12:02:00 EDT, Weight Dosing Start Date: 12/12/21 Status: Ordered tamsulosin hydrochloride 0.4 mg oral capsule (11 sources) alpha-Adrenergic Getachew Start: 01-22-2023 take 1 capsule by mouth twice daily tamsulosin 0.4 mg Cap 0.4 mg = 1 cap(s), Oral, BID, # 180 cap(s), Refills(s) 3, Pharmacy: [facility], 185, cm, 12/01/22 9:15:00 EDT, Height/Length Dosing, 74.6, kg, 12/01/22 9:15:00 EDT, Weight Dosing Start Date: 01/22/23 Status: Ordered Start: 01-20-2022 take 1 capsule by [facility] twice daily tamsulosin 0.4 mg Cap 0.4 mg = 1 cap(s), Oral, BID, # 180 cap(s), Refills(s) 3, Pharmacy: [facility]), 185, cm, 12/12/21 12:02:00 EDT, Height/Length Dosing, 74.8, kg, 12/12/21 12:02:00 EDT, Weight Dosing Start Date: 01/20/22 Status: Ordered Start: 12-10-2020 take 1 capsule by [facility] twice daily tamsulosin 0.4 mg Cap 0.4 mg = 1 cap(s), Oral, BID, # 180 cap(s), Refills(s) 3, Pharmacy: [facility], 185, cm, 12/10/20 11:18:00 EDT, Height/Length Dosing, 75.4, kg, 12/10/20 11:18:00 EDT, Weight Dosing Start Date: 12/10/20 Status: Ordered take 1 capsule by hi ut every twenty-four hours in the morning tamsulosin (Flomax) 0.4 MG 24 hr capsule Take 1 capsule by mouth in the morning. Active Vitamin B1 (1 source) Start: 03-28-2021 Vitamin B1 Akila ly, Refills(s) 0 Start Date: 03/28/21 Status: Ordered vitamin B12 (7 sources) Vitamin B12 Start: 12-01-2022 Vitamin B-12 R efills(s) 0 Start Date: 12/01/22 Status: Ordered take 1 tablet by mouth in the mo rning cyanocobalamin (Vitamin B-12) 1000 MCG tablet Take 1 tablet by mouth in the morning. Active Completed/Discontinued Medications Medication Drug Class(es) Dates Sig (Normalized) Sig (Original) doxycycline hyclate 100 mg oral capsule (1 source) Tetracycline-cla ss Drug Start: 03-28-2021 take 1 capsule by mouth once daily doxycycline hyclate 100 mg Cap 100 mg = 1 cap(s), Oral, Daily, Take 1 pill the day before the procedure and 1 pill after the procedure, # 2 cap(s), Refills(s) 0, Pharmacy: [id number], 185, cm, 03/28/21 13:13:00 EST, Height/Length Dosing, 75.4, kg, 03/28/21 13:13:00 EST, We... Start Date: 03/28/21 Status: Ordered fluticasone 0.05 mg/inh Nasal [place] (4 sources) Start: 02-13-2022 take 1 spray(s) nasal route once daily fluticasone 0.05 mg/inh Nasal [place] Refill(s) 0, 16 gm, SPRAY 1 SPRAY INTO EACH NOSTRIL EVERY DAY Start Date: 02/13/22 Status: Ordered gabapentin 300 mg oral capsule (12 sources) Anti-epileptic Agent Start: 03-26-2023 End: 04-28-2024 take 1 capsule by mouth in the morning gabapentin (Neurontin) 300 MG capsule Indications: Phantom pain Take 1 capsule (300 mg) by mouth in the morning and 1 capsule (300 mg) before bedtime. 180 capsule 1 08/20/2023 01/29/2024 Discontinued (Reorder) Start: 03-28-2021 take 1 mg by mouth t hree times daily gabapentin 100 mg Cap mg cap(s), Oral, TID, Refills(s) 0 Start Date: 03/28/21 Status: Ordered Problems Active Problems Problem Classification Problem Date Documented Date Episodic/Chronic Aortic; peripheral; and visceral artery aneurysms (3 sources) Thoracic aortic ectasia; Translations: [THORACIC AORTIC ECTASIA] Onset: 06-22-2022 Chronic Cardiac dysrhythmias (17 sources) 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; Translations: [Unspecified atrial fibrillation] Onset: 02-11-2016 Resolved: 11-21-2023 Chronic Essential hypertension (19 sources) Hypertensive disorder; Translations: [Essential (primary) hypertension] Onset: 02-02-2021 Resolved: 2023 09-24-2019 Chronic Genitourinary symptoms and ill-defined conditions (20 sources) Blood in urine; Translations: [Gross hematuria] Onset: 09-16-2021 Episodic Hyperplasia of prostate (20 sources) Benign prostatic hypertrophy with outflow obstruction; Translations: [Benign prostatic hyperplasia with lower urinary tract symptoms] Onset: 09-19-2021 09-24-2019 Chronic Nutritional deficiencies (6 sources) Vitamin D deficiency; Translations: [Vitamin D deficiency, unspecified] Onset: 05-25-2016 2023 Chronic Open wounds of extremities (1 source) Amputated right lower limb above knee; Translations: [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, initial encounter] Onset: 08-20-2023 08-20-2023 Chronic Osteoarthritis (6 sources) Arthritis 09-24-2019 Chronic Other ear and sense organ disorders (4 sources) Hearing loss; Translations: [Unspecified hearing loss, unspecified ear] Onset: 05-24-2016 2023 Chronic Other nervous system disorders (8 sources) Phantom pain; Translations: [Phantom limb syndrome with pain] Onset: 03-26-2023 03-26-2023 Chronic Regional enteritis and ulcerative colitis (10 sources) Crohn's disease; Translations: [Crohn's disease of small intestine] Onset: 02-23-2017 09-24-2019 Chronic Residual codes; unclassified (6 sources) H/O: anticoagulant therapy 12-08-2019 Episodic Unclassified (1 source) CONTACT W/AND (SUSP) EXPOS COVID-19; Translations: [CONTACT W/AND (SUSP) EXPOS COVID-19] Onset: 09-19-2021 Unclassified (1 source) Aneurysm of the ascending aorta, without rupture; Translations: [Aneurysm of the ascending aorta, without rupture] Onset: 03-27-2023 Past or Other Problems Problem Classification Problem Date Documented Da te Episodic/Chronic Deficiency and other anemia (6 sources) Iron deficiency anemia; Translations: [Iron deficiency anemia, unspecified] Onset: 08-01-2017 2023 Episodic Mood disorders (4 sources) Mood disorders Onset: 2023 2023 Nonspecific chest pain (2 sources) Other chest pain; Translations: [Other chest pain] Onset: 09-27-2022 Episodic Nutritional deficiencies (7 sources) Deficiency of other specified B group vitamins; Translations: [Cobalamin deficiency] Onset: 10-19-2021 2023 Episodic Open wounds of extremities (4 sources) Amputated left lower limb above knee; Translations: [Complete traumatic amputation at level between left hip and knee, initial encounter] Onset: 2023 Resolved: 08-20-2023 2023 Chronic Other aftercare (1 source) Other long chain quiller tender (current) drug therapy; Translations: [OTH [facility] CURRENT DRUG THERAPY] Onset: 09-19-2021 Episodic Other injuries and conditions due to external causes (2 sources) History of falling; Translations: [History of falling] Onset: 06-05-2022 Episodic Other lower respiratory disease (3 sources) Shortness of breath; Translations: [SHORTNESS OF BREATH] Onset: 06-05-2022 Episodic Other nervous system disorders (4 sources) Phantom limb syndrome with pain; Translations: [Phantom limb syndrome with pain] Onset: 02-06-2019 Resolved: 08-20-2023 2023 Chronic Other nervous system disorders (2 sources) Unsteadiness on feet; Translations: [Unsteadiness on feet] Onset: 09-27-2022 Episodic Other non-epithelial cancer of skin (10 sources) Basal cell carcinoma of back; Translations: [Basal cell carcinoma of skin of other part of trunk] Onset: 04-04-2023 04-04-2023 Episodic Other screening for suspected conditions (not mental disorders or infectious disease) (20 sources) Raised prostate specific antigen; Translations: [Elevated prostate specific antigen [PSA]] Onset: 10-19-2021 09-24-2019 Episodic Other upper respiratory disease (3 sources) Nasal congestion; Translations: [NASAL CONGESTION] Onset: 09-17-2021 Episodic Other upper respiratory infections (2 sources) Acute upper respiratory infection, unspecified; Translations: [Acute sinusitis, unspecified] Onset: 09-19-2021 Episodic Rehabilitation care; fitting of prostheses; and adjustment of devices (4 sources) Follow-up status; Translations: [Encounter for fitting and adjustment of unspecified external prosthetic device] Onset: 05-24-2016 2023 Episodic Screening and history of mental health and substance abuse codes (1 source) Personal history of nicotine dependence; Translations: [PERSONAL HISTORY OF NICOTINE DEPEND] Onset: 09-19-2021 Episodic Unclassified (1 source) Aneurysm of the ascending aorta, without rupture; Translations: [Aneurysm of the ascending aorta, without rupture] Onset: 03-27-2023 Results Test Name Value Interpretation Reference Range Facility Ambulatory Visit Summaryon 0 08-17-2023 Ambulatory Visit Summary ROBIN PAZ :1935 Visit Date:08/17/2023 Ambulatory Visit Instructions Your Diagnosis BPH with urinary obstruction Gross hematuria Your Care Team Attending Physician - Don ZHANG MD Primary Care Physician - LUCIANA NICOLAS CNP This Is Your Medications List tamsulosin (tamsulosin 0.4 mg Cap) Contact prescribing physician if questions or concerns apixaban (Eliquis 2.5 mg oral tablet) carbonyl iron (Iron Chews) cyanocobalamin (Vitamin B-12) fluticasone nasal (fluticasone 0.05 mg/inh Nasal [place]) gabapentin (gabapentin 100 mg Cap) losartan (losartan 25 mg Tab) Procedures Performed Transrectal needle biopsy of prostate (05/16/2022), TURP - Transurethral resection of prostate (08/19/2015), Urodynamics (07/28/2015), Transurethral resection of prostate (11/30/2009), Transurethral resection of prostate (09/07/2009), Amputation of leg, Colonoscopy, Hernia repair. Discharge Vitals Height 185 cm Height 73 in Weight 74 kg Weight 162.8 lb BMI 21.62 What to do next Scheduled Follow-Up Appointments Sunday 10:30 AM EDT With: MILKA OROZCO, Don Gutierrez Where: [facility] Patient Educationon 08-17-19 Patient Education Urology Benign Prostatic Hyperplasia Benign prostatic hyperplasia (BPH) is an enlarged prostate gland that is caused by the normal aging process. The prostate may get bigger as a man gets older. The condition is not caused by cancer. The prostate is a walnut-sized gland that is involved in the production of semen. It is located in front of the rectum and below the bladder. The bladder stores urine. The urethra carries stored urine out of the body. An enlarged prostate can press on the urethra. This can make it harder to pass urine. The buildup of urine in the bladder can cause infection. Back pressure and infection may progress to bladder damage and kidney (renal) failure. What are the causes? This condition is part of the normal aging process. However, not all men develop problems from this condition. If the prostate enlarges away from the urethra, urine flow will not be blocked. If it enlarges toward the urethra and compresses it, there will be problems passing urine. What increases the risk? This condition is more likely to develop in men older than 50 years. What are the signs or symptoms? Symptoms of this condition include: ? Getting up often during the night to urinate. ? Needing to urinate frequently during the day. ? Difficulty starting urine flow. ? Decrease in size and strength of your urine stream. ? Leaking (dribbling) after urinating. ? Inability to pass urine. This needs immediate treatment. ? Inability to completely empty your bladder. ? Pain when you pass urine. This is more common if there is also an infection. ? Urinary tract infection (UTI). How is this diagnosed? This condition is diagnosed based on your medical history, a physical exam, and your symptoms. Tests will also be done, such as: ? A post-void bladder scan. This measures any amount of urine that may remain in your bladder after you finish urinating. ? A digital rectal exam. In a rectal exam, your health care provider checks your prostate by putting a lubricated, gloved finger into your rectum to feel the back of your prostate gland. This exam detects the size of your gland and any abnormal lumps or growths. ? An exam of your urine (urinalysis). ? A prostate specific antigen (PSA) screening. This is a blood test used to screen for prostate cancer. ? An ultrasound. This test uses sound waves to electronically produce a picture of your prostate gland. Your health care provider may refer you to a specialist in kidney and prostate diseases (urologist). How is this treated? Once symptoms begin, your health care provider will monitor your condition (active surveillance or watchful waiting). Treatment for this condition will depend on the severity of your condition. Treatment may include: ? Observation and yearly exams. This may be the only treatment needed if your condition and symptoms are mild. ? Medicines to relieve your symptoms, including: ? Medicines to shrink the prostate. ? Medicines to relax the muscle of the prostate. ? Surgery in severe cases. Surgery may include: ? Prostatectomy. In this procedure, the prostate tissue is removed completely through an open incision or with a laparoscope or robotics. ? Transurethral resection of the prostate (TURP). In this procedure, a tool is inserted through the opening at the tip of the penis (urethra). It is used to cut away tissue of the inner core of the prostate. The pieces are removed through the same opening of the penis. This removes the blockage. ? Transurethral incision (TUIP). In this procedure, small cuts are made in the prostate. This lessens the prostate's pressure on the urethra. ? Transurethral microwave thermotherapy (TUMT). This procedure uses microwaves to create heat. The heat destroys and removes a small amount of prostate tissue. ? Transurethral needle ablation (TUNA). This procedure uses radio frequencies to destroy and remove a small amount of prostate tissue. ? Interstitial laser coagulation (ILC). This procedure uses a laser to destroy and remove a small amount of prostate tissue. ? Transurethral electrovaporization (TUVP). This procedure uses electrodes to destroy and remove a small amount of prostate tissue. ? Prostatic urethral lift. This procedure inserts an implant to push the lobes of the prostate away from the urethra. Follow these instructions at home: ? Take [id number] and prescription medicines only as told by your health care provider. ? Monitor your symptoms for any changes. Contact your health care provider with any changes. ? Avoid drinking large amounts of liquid before going to bed or out in public. ? Avoid or reduce how much caffeine or alcohol you drink. ? Give yourself time when you urinate. ? Keep all follow-up visits. This is important. Contact a health care provider if: ? You have unexplained back pain. ? Your symptoms do not get better with treatment. ? You develop side effects from the medicine (more content not included)... Normal [facility] Urology Office/Clinic Noteon 08-17-2023 Urology Office/Clinic Note Chief Complaint 3m PVR HPI Staff 3m DX: BPH, Nocturia & Gross Hematuria *Tamsulosin 0.4mg bid & restarted on Oxybutynin 10mg ER at time of last encounter Pt only took Oxybutynin 1x then stopped. States he remembered why he stopped taking it previously. States it slows his stream and takes longer for him to void. Denies pain/burning and blood in urine. No complaints with stream at this time. Denies urgency. Getting up 1x/night. (sometimes 2x). Has improved since last encounter. Pt states he stopped drinking late in the evening. During the day voids q2hrs. History of Present Illness Tests reviewed: reviewed UA. I have reviewed the previous health record information and history for this patient from Dr. Zhang. I have reviewed and verified the staff HPI to be accurate for this encounter. There have been no associated fever, chills, flank pain, or blood in the urine. Denies any urinary infections since last encounter. Review of Systems PHQ Score Initial Depression Screen Score: 0 SCORE ROS - Provider Constitutional: denies weight loss, denies hot flashes. Eyes: denies eye problems. Gastrointestinal: denies nausea, denies vomiting. Cardiovascular: denies chest pain or angina. Integumentary: no dryness Musculoskeletal: denies musculoskeletal symptoms. ENMT: denies otolaryngeal symptoms. Respiratory: no shortness of breath. Heme/Lymph: denies easy bleeding tendency, denies easy bruising tendency. Psychiatric: no confusion, no anxiety. Genitourinary: See HPI. Physical Exam Vitals & Measurements HT: 73 in HT: 185 cm WT: 74 kg WT: 162.8 lb BMI: 21.62 General Appearance: alert, no distress, well nourished, well developed male. Assessment/Plan 1. BPH with urinary obstruction (N40.1: Benign prostatic hyperplasia with lower urinary tract symptoms) Stopped PSA checks previously due to age and chances of developing and having problems from prostate cancer were low. Taking Tamsulosin 0.4 mg bid. Strong stream. Nocturia has improved since limiting fluids prior to bedtime. Denies urgency majority of the time, unless he waits too long. Pt was to start Oxybutynin 10mg ER qd last visit due to frequency. Pt has been prescribed 5mg ER qd in the past, however does not recall taking this. States he took 10mg ER qd one time, and stopped it due to remembering why he didn't take 5mg. Slows his stream and takes him longer to empty. -Cont Flomax 0.4mg bid -Follow up in 1 year 2. Gross hematuria (R31.0: Gross hematuria) S/p Cysto 04/05/21. Negative hematuria workup in 2020. No recurrence since. UA today shows trace-intact blood. Pt knows to call if he ever experiences gross hematuria. Follow-up With When Contact Information MILKA OROZCO, Don Gutierrez, [address] [place] [address]- Additional Instructions: 1 year Patient Education Benign Prostatic Hyperplasia I, Latanya Rios, personally scribed for Dr. Zhang on 08/17/2023 10:01:48. . Documentation recorded by the scribe, Latanya Rios, accurately reflects the services(s) I performed and decisions made by me. Authenticated by Dr. Zhang on 08/17/2023 10:03:25. 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 Medications Eliquis 2.5 mg oral tablet fluticasone 0.05 mg/inh Nasal [place] gabapentin 100 mg Cap, Oral, TID Iron Chews, Oral, Daily losartan 25 mg Tab, Oral, Daily tamsulosin 0.4 mg Cap, 0.4 mg= 1 cap(s), Oral, BID, 3 refills Vitamin B-12 Allergies dicloxacillin (Other) penicillins (Unknown) Social History Alcohol - Low Risk, 09/24/2019 Tobacco Former smoker, quit more than 30 days ago, quit 30 years ago Tobacco Use:. Never Smokeless Tobacco Use:. Stopped age 35 Years. Household tobacco concerns: No. Yes, 08/17/2023 Family History Family history is negative Immunizations Vaccine Date Status influenza virus vaccine, inactivated 01/16/2023 Recorded influenza virus vaccine, inactivated 01/09/2022 Recorded SARS-CoV-2 (COVID-19) [id number] 01/09/2022 Recorded SARS-CoV-2 (COVID-19) mRNA BNT-162b2 vax 03/04/2021 Recorded influenza virus vaccine, inactivated 02/23/2021 Recorded SARS-CoV-2 (COVID-19) mRNA-1273 vaccine 06/22/2020 Recorded SARS-CoV-2 (COVID-19) mRNA-1273 vaccine 05/24/2020 Recorded pneumococcal 23-valent vaccine 01/27/2020 Recorded influenza virus vaccine, inactivated 01/27/2020 Rec (more content not included)... Normal [facility] Comment on above: Result Comment: Elec tronically Signed By: Don ZHANG MD\.br\Date and Time Signed: 08/17/23 10:03 EDT\.br\Electronically Co-Signed By: Latanya Rios\.br\Date and Time Co-Signed: 08/17/23 10:01 EDT Patient Educationon 06-11-19 Patient Education Urology Urinary Frequency, Adult Urinary frequency means urinating more often than usual. You may urinate every 1?2 hours even though you drink a normal amount of fluid and do not have a bladder infection or condition. Although you urinate more often than normal, the total amount of urine produced in a day is normal. With urinary frequency, you may have an urgent need to urinate often. The stress and anxiety of needing to find a bathroom quickly can make this urge worse. This condition may go away on its own, or you may need treatment at home. Home treatment may include bladder training, exercises, taking medicines, or making changes to your diet. Follow these instructions at home: Bladder health Your health care provider will tell you what to do to improve bladder health. You may be told to: ? Keep a bladder diary. Keep track of: ? What you eat and drink. ? How often you urinate. ? How much you urinate. ? Follow a bladder training program. This may include: ? Learning to delay going to the bathroom. ? Double urinating, also called voiding. This helps if you are not completely emptying your bladder. ? Scheduled voiding. ? Do Kegel exercises. Kegel exercises strengthen the muscles that help control urination, which may help the condition. Eating and drinking Follow instructions from your health care provider about eating or drinking restrictions. You may be told to: ? Avoid caffeine. ? Drink fewer fluids, especially alcohol. ? Avoid drinking in the evening. ? Avoid foods or drinks that may irritate the bladder. These include coffee, tea, soda, artificial sweeteners, citrus, tomato-based foods, and chocolate. ? Eat foods that help prevent or treat constipation. Constipation can make urinary frequency worse. You may need to take these actions to prevent or treat constipation: ? Drink enough fluid to keep your urine pale yellow. ? Take bchi-kpm-xxynnvn or prescription medicines. ? Eat foods that are high in fiber, such as beans, whole grains, and fresh fruits and vegetables. ? Limit foods that are high in fat and processed sugars, such as fried or sweet foods. General instructions ? Take nquf-yep-nmocraw and prescription medicines only as told by your health care provider. ? Keep all follow-up visits. This is important. Contact a health care provider if: ? You start urinating more often. ? You feel pain or irritation when you urinate. ? You notice blood in your urine. ? Your urine looks cloudy. ? You develop a fever. ? You begin vomiting. Get help right away if: ? You are unable to urinate. Summary ? Urinary frequency means urinating more often than usual. With urinary frequency, you may urinate every 1?2 hours even though you drink a normal amount of fluid and do not have a bladder infection or other bladder condition. ? Your health care provider may recommend that you keep a bladder diary, follow a bladder training program, or make dietary changes. ? If told by your health care provider, do Kegel exercises to strengthen the muscles that help control urination. ? Take auim-shf-jcopvcj and prescription medicines only as told by your health care provider. ? Contact a health care provider if your symptoms do not improve or get worse. This information is not intended to replace advice given to you by your health care provider. Make sure you discuss any questions you have with your health care provider. Document Revised: 11/05/2020 Document Reviewed: 11/05/2020 [employer] Patient Education ? 2022 [employer]. Georgina Diaz [facility] Urology Office/Clinic Noteon 06-11-2023 Urology Office/Clinic Note Chief Complaint BPH with urinary obstruction HPI Staff 6 month f/u. Dx: BPH with urinary obstruction, elevated PSA and gross hematuria. Tamsulosin 0.4mg BID Oxybutynin 5mg ER discontinued at last office visit. Dysuria: no Incomplete bladder emptying: pt feels he is emptying Hematuria: no Frequency: every couple hours Urgency: no Nocturia: every couple of hours, tries to stop liquids around 6pm Stream: good steady stream Leaking: no Post void dripping: no Wearing pads/ Depends: no Urge incontinence: no Stress incontinence: no Incontinence without Sensory Awareness: no Abdominal pain:no Flank pain: no Sexual complaints: no History of Present Illness Tests reviewed: reviewed UA I have reviewed the previous health record information and history for this patient from Dr. Zhang. I have reviewed and verified the staff HPI to be accurate for this encounter. Review of Systems PHQ Score Initial Depression Screen Score: 0 SCORE ROS - Provider Constitutional: denies weight loss, denies hot flashes. Eyes: denies eye problems. Gastrointestinal: denies nausea, denies vomiting. Cardiovascular: denies chest pain or angina. Integumentary: no dryness Musculoskeletal: denies musculoskeletal symptoms. ENMT: denies otolaryngeal symptoms. Respiratory: no shortness of breath. Heme/Lymph: denies easy bleeding tendency, denies easy bruising tendency. Psychiatric: no confusion, no anxiety. Genitourinary: See HPI. Physical Exam Vitals & Measurements HR: 82(Peripheral) RR: 16 BP: 124/68 HT: 73 in HT: 185 cm WT: 74 kg WT: 162.8 lb BMI: 21.62 General Appearance: alert, no distress, well nourished, well developed male. Genitourinary: normal scrotum, normal testes, normal urethra, normal epididymis, normal vas deferens/spermatic cord. Flank Pain: none. Bladder: nonpalpable. Assessment/Plan 1. BPH with urinary obstruction (N40.1: Benign prostatic hyperplasia with lower urinary tract symptoms) Stopped PSA checks previously due to age and chances of developing and having problems from prostate cancer were low. D/c Oxybutynin 5 mg ER qd at prior OV due to pt experiencing hesitancy. Pt does not recall ever taking this. Taking Tamsulosin 0.4 mg bid. Feels frequency is still bothersome. Discussed restarting a bladder med. Pt would like to proceed. -Start Oxybutynin ER 10 mg qd. [place] [facility] [place] [facility] [place] Discussed the medication side effects, and the patient will monitor closely for these, as well as for symptom improvement. If severe side effects occur, the medication should be stopped and the office notified. -F/u in 3 mos w/ PVR 2. Nocturia (R35.1: Nocturia) Gets up every few hours during the night despite limiting fluids prior to bedtime. -See #1. 3. Gross hematuria (R31.0: Gross hematuria) S/p Cysto 04/05/21. Negative hematuria workup in 2020. No recurrence since. UA today shows trace-lysed blood. Denies seeing any blood in his urine. Pt knows to call if he ever experiences gross hematuria. Follow-up With When Contact Information MILKA OROZCO, Don Gutierrez, URL [facility] [address], [place] [address] [phone] Additional Instructions: 3 mos w/ PVR (new med) Patient Education Urinary Frequency, Adult I, Kristie Squires, personally scribed for Dr. Zhang on 06/11/2023 11:04:35. . Documentation recorded by the Kristie enrique, accurately reflects the services(s) I performed and decisions made by me. Authenticated by Dr. Zhang on 06/11/2023 11:06:06. Problem List/Past Medical History Ongoing Arthritis BPH with urinary obstruction Crohn's disease Elevated PSA Gross hematuria Hematuria, microscopic Hx of fci use of blood thinners Hypertension Nocturia Weak urine stream Historical No qualifying data Procedure/Surgical History Transrectal needle biopsy of prostate (05/16/2022), TURP - Transurethral resection of prostate (08/19/2015), Urodynamics (07/28/2015), Transurethral resection of prostate (11/30/2009), Transurethral resection of prostate (09/07/2009), Amputation of leg, Colonoscopy, Hernia repair. Medications Eliquis 2.5 mg oral tablet fluticasone 0.05 mg/inh Nasal [place] gabapentin 100 mg Cap, Oral, TID Iron Chews, Oral, Daily losartan 25 mg Tab, Oral, Daily oxybutynin 5 mg ER Tab, 5 mg= 1 tab(s), Oral, Bedtime, 11 refills, Not taking: discontinued at last office visit to see if symptoms of hesitancy would improve tamsulosin 0.4 mg Cap, 0.4 mg= 1 cap(s), Oral, BID, 3 refills Vitamin B-12 Allergies dicloxacillin (Other) penicillins (Unknown) Social History Alcohol - Low Risk, 09/24/2019 Tobacco quit 30 years ago Tobacco Use:. Stopped age 35 Years., 12/01/2022 Family History Family history is negative Immunizations Vaccine Date Status SARS-CoV-2 (COVID-19) mRNA BNT-162b2 vax 03/04/2021 Recorded influenza virus vaccine, inactivated 02/23/2021 Recorded SARS-CoV (more content not included)... Normal [facility] Comment on above: Result Comment: Elec tronically Signed By: Don ZHANG MD\.br\Date and Time Signed: 06/11/23 11:06 EST\.br\Electronically Co-Signed By: Kristie Squires\.br\Date and Time Co-Signed: 06/11/23 11:05 EST Lab Reportson 06-09-2023 Lab Reports [id number] IFF Normal [facility] TBH UA (CLEAN/CATCH) MICROSC OPIC IF INDICATEon 05-29-2023 BILIRUBIN URINE Negative NEGATIVE [facility] BLOOD URINE TRACE-I NEGATIVE [facility] Clarity (U) CLEAR CLEAR [facility] Color (U) LT. YELLOW YELLOW [facility] GLUCOSE URINE UA Negative NEGATIVE mg/dL [facility] Ketones Ql (U) Negative NEGATIVE mg/dL [facility] Leukocyte esterase Test strip Ql (U) Negative NEGATIVE [facility] NITRITE URINE Negative NEGATIVE [facility] pH (U) 7.5 [pH] 5.0 - 9.0 [facility] PROTEIN URINE Negative NEG/TRACE [facility] SPECIFIC GRAVITY URINE 1.015 1.005 - 1.025 [facility] URINE MICROSCOPIC INDICATED YES [facility] UROBILINOGEN URINE 0.2 EU/dL 0.2 - 1.0 EU/dL [facility] Healthcare Office Visiton 03-27-2023 Follow-up visit [id number] Vivien Paz 1935 M Date Provider Department Center 03/27/2023 DANGELO KINSEY TED[facility] Family History Problem Relation Age of Onset Coronary artery disease Paternal Grandmother Family Status - Relation Status Age at Paternal Grandmother Level of Service:300[address] CT OFFICE/OUTPATIENT ESTABLISHED MOD MDM 30-39 MIN Normal [facility] Ambulatory Visit Summaryon 0 12-01-2022 Ambulatory Visit Summary ROBIN PAZ :1935 Visit Date:12/01/2022 Ambulatory Visit Instructions Your Diagnosis BPH with urinary obstruction Elevated PSA Gross hematuria Tests Performed Urnls Dip Stick Auto w/o Microscopy POC [id number] Your Care Team Attending Physician - MILKA OROZCO, Don Gutierrez Primary Care Physician - LUCIANA NICOLAS CNP This Is Your Medications List oxybutynin (oxybutynin 5 mg ER Tab) tamsulosin (tamsulosin 0.4 mg Cap) Contact prescribing physician if questions or concerns carbonyl iron (Iron Chews) cyanocobalamin (Vitamin B-12) fluticasone nasal (fluticasone 0.05 mg/inh Nasal [place]) gabapentin (gabapentin 100 mg Cap) losartan (losartan 25 mg Tab) Procedures Performed Transrectal needle biopsy of prostate (05/16/2022), TURP - Transurethral resection of prostate (08/19/2015), Urodynamics (07/28/2015), Transurethral resection of prostate (11/30/2009), Transurethral resection of prostate (09/07/2009), Amputation of leg, Colonoscopy, Hernia repair. Discharge Vitals Heart Rate (Peripheral) 74 Blood Pressure 128/78 Height 185 cm Height 73 in Weight 74.6 kg Weight 164.12 lb BMI 21.8 What to do next Scheduled Follow-Up Appointments Sunday 9:45 AM EST With: Don ZHANG MD Where: [facility] [place] [facility] Patient Educationon 12-02-19 Patient Education Urology Benign Prostatic Hyperplasia Benign prostatic hyperplasia (BPH) is an enlarged prostate gland that is caused by the normal aging process. The prostate may get bigger as a man gets older. The condition is not caused by cancer. The prostate is a walnut-sized gland that is involved in the production of semen. It is located in front of the rectum and below the bladder. The bladder stores urine. The urethra carries stored urine out of the body. An enlarged prostate can press on the urethra. This can make it harder to pass urine. The buildup of urine in the bladder can cause infection. Back pressure and infection may progress to bladder damage and kidney (renal) failure. What are the causes? This condition is part of the normal aging process. However, not all men develop problems from this condition. If the prostate enlarges away from the urethra, urine flow will not be blocked. If it enlarges toward the urethra and compresses it, there will be problems passing urine. What increases the risk? This condition is more likely to develop in men older than 50 years. What are the signs or symptoms? Symptoms of this condition include: ? Getting up often during the night to urinate. ? Needing to urinate frequently during the day. ? Difficulty starting urine flow. ? Decrease in size and strength of your urine stream. ? Leaking (dribbling) after urinating. ? Inability to pass urine. This needs immediate treatment. ? Inability to completely empty your bladder. ? Pain when you pass urine. This is more common if there is also an infection. ? Urinary tract infection (UTI). How is this diagnosed? This condition is diagnosed based on your medical history, a physical exam, and your symptoms. Tests will also be done, such as: ? A post-void bladder scan. This measures any amount of urine that may remain in your bladder after you finish urinating. ? A digital rectal exam. In a rectal exam, your health care provider checks your prostate by putting a lubricated, gloved finger into your rectum to feel the back of your prostate gland. This exam detects the size of your gland and any abnormal lumps or growths. ? An exam of your urine (urinalysis). ? A prostate specific antigen (PSA) screening. This is a blood test used to screen for prostate cancer. ? An ultrasound. This test uses sound waves to electronically produce a picture of your prostate gland. Your health care provider may refer you to a specialist in kidney and prostate diseases (urologist). How is this treated? Once symptoms begin, your health care provider will monitor your condition (active surveillance or watchful waiting). Treatment for this condition will depend on the severity of your condition. Treatment may include: ? Observation and yearly exams. This may be the only treatment needed if your condition and symptoms are mild. ? Medicines to relieve your symptoms, including: ? Medicines to shrink the prostate. ? Medicines to relax the muscle of the prostate. ? Surgery in severe cases. Surgery may include: ? Prostatectomy. In this procedure, the prostate tissue is removed completely through an open incision or with a laparoscope or robotics. ? Transurethral resection of the prostate (TURP). In this procedure, a tool is inserted through the opening at the tip of the penis (urethra). It is used to cut away tissue of the inner core of the prostate. The pieces are removed through the same opening of the penis. This removes the blockage. ? Transurethral incision (TUIP). In this procedure, small cuts are made in the prostate. This lessens the prostate's pressure on the urethra. ? Transurethral microwave thermotherapy (TUMT). This procedure uses microwaves to create heat. The heat destroys and removes a small amount of prostate tissue. ? Transurethral needle ablation (TUNA). This procedure uses radio frequencies to destroy and remove a small amount of prostate tissue. ? Interstitial laser coagulation (ILC). This procedure uses a laser to destroy and remove a small amount of prostate tissue. ? Transurethral electrovaporization (TUVP). This procedure uses electrodes to destroy and remove a small amount of prostate tissue. ? Prostatic urethral lift. This procedure inserts an implant to push the lobes of the prostate away from the urethra. Follow these instructions at home: ? Take swki-bpc-vhpmhkm and prescription medicines only as told by your health care provider. ? Monitor your symptoms for any changes. Contact your health care provider with any changes. ? Avoid drinking large amounts of liquid before going to bed or out in public. ? Avoid or reduce how much caffeine or alcohol you drink. ? Give yourself time when you urinate. ? Keep all follow-up visits. This is important. Contact a health care provider if: ? You have unexplained back pain. ? Your symptoms do not get better with treatment. ? You develop side effects from the medicine (more content not included)... Normal Diaz [facility] Urology Office/Clinic Noteon 12-01-2022 Urology Office/Clinic Note Chief Complaint 6 month F/u with PSA HPI Staff 6 month f/u with PSA. Previous dx of BPH with urinary obstruction, elevated PSA and gross hematuria. Using Tamsulosin 0.4mg QD and Oxybutynin 5mg ER qhs. both works well No recent PSA done since 10/01/21 PVR 81 today Dysuria: _denies Incomplete bladder emptying: never do Hematuria: _denies visible blood Frequency: every few hours Urgency: denies Nocturia: _3 times a night Stream: _hesitation in stream Leaking: _denies Post void dripping: _denies Wearing pads/ Depends: _denies Urge incontinence: _denies Stress incontinence: _denies Incontinence without Sensory Awareness: denies Abdominal pain: denies Flank pain: denies Sexual complaints: denies History of Present Illness Tests reviewed: Reviewed UA and PSA. I have reviewed the previous health record information and history for this patient from Dr. Zhang. I have reviewed and verified the staff HPI to be accurate for this encounter. There have been no associated fever, chills, flank pain, or blood in the urine. Denies any urinary infections since last encounter. Review of Systems PHQ Score Initial Depression Screen Score: 0 ROS - Provider Constitutional: denies weight loss, denies hot flashes. Eyes: denies eye problems. Gastrointestinal: denies nausea, denies vomiting. Cardiovascular: denies chest pain or angina. Integumentary: no dryness Musculoskeletal: denies musculoskeletal symptoms. ENMT: denies otolaryngeal symptoms. Respiratory: no shortness of breath. Heme/Lymph: denies easy bleeding tendency, denies easy bruising tendency. Psychiatric: no confusion, no anxiety. Genitourinary: denies dysuria, denies hematuria, denies discharge, denies urinary frequency, denies urinary hesitancy, denies nocturia, denies incontinence, denies genital sores, denies decreased libido, and denies erectile dysfunction. Physical Exam Vitals & Measurements HR: 74(Peripheral) BP: 128/78 HT: 73 in HT: 185 cm WT: 74.6 kg WT: 164.12 lb BMI: 21.8 General Appearance: alert, no distress, well nourished, well developed male. Genitourinary: normal scrotum, normal testes, normal urethra, normal epididymis, normal vas deferens/spermatic cord. Flank Pain: none. Bladder: nonpalpable. Assessment/Plan 1. BPH with urinary obstruction (N40.1: Benign prostatic hyperplasia with lower urinary tract symptoms) Patient continues Tamsulosin 0.4mg BID and Oxybutynin 5 mg ER daily, states they are both working well for him. Voids frequently and is experiencing hesitancy during the night. Patient feels he is not fully emptying, PVR today 81 ml. Explained to patient that Oxybutynin is most likely causing the hesitancy. UA today neg. -Will d/c Oxybutynin to see if symptoms improve -Follow up in 6 months All questions/concerns were discussed. Pt. to call the office if heencounters any issues prior. Pt. acknowledges understanding. 2. Elevated PSA (R97.20: Elevated prostate specific antigen [PSA]) PSA: 10/01/21 - 7.29 10/13/21 - 14.61 02/13/22 - 11.04 MRI of prostate done 03/22/22 shows prostate volume 90 mL. Area involving the lateral aspect of the right peripheral zone at the level of the mid gland measuring 11 x 6 mm. PI-RADS 4. S/p TRUS/bx done 05/16/22 - Path neg Patient does not have any recent PSA levels, he did not remember that it was a blood draw. I discussed stopping the PSA check due to his advancing age. He is aware that his chances of developing and having problems from prostate cancer at this point are quite low. He agrees to stop the PSA checks. 3. Gross hematuria (R31.0: Gross hematuria) S/p Cysto 03/2021. Hematuria w/up negative. Denies gross hematuria. Follow-up With When Contact Information Don ZHANG MD, [address] [place] [address]- Additional Instructions: 6 months Patient Education Benign Prostatic Hyperplasia I, Latanya Rios, personally scribed for Dr. Zhang on 12/01/2022 10:01:10. . Documentation recorded by the scribeLatanya, accurately reflects the services(s) I performed and decisions made by me. Authenticated by Dr. Zhang on 12/01/2022 10:07:00. Problem List/Past Medical History Ongoing Arthritis BPH with urinary obstruction Crohn's disease Elevated PSA Gross hematuria Hematuria, microscopic Hx of fci use of blood thinners Hypertension Nocturia Weak urine stream Historical No qualifying data Procedure/Surgical History Transrectal needle biopsy of prostate (05/16/2022), TURP - Transurethral resection of prostate (08/19/2015), Urodynamics (07/28/2015), Transurethral resection of prostate (11/30/2009), Transurethral resection of prostate (09/07/2009), Amputation of leg, Colonoscopy, Hernia repair. Medications fluticasone 0.05 mg/inh Nasal [place] gabapentin 100 mg Cap, Oral, TID Iron Chews, Oral, Daily losartan 25 mg Tab, Oral, (more content not included)... Normal [facility] Comment on above: Result Comment: Elec tronically Signed By: Don ZHANG MD\.br\Date and Time Signed: 12/01/22 10:07 EDT\.br\Electronically Co-Signed By: Latanya Rios\.br\Date and Time Co-Signed: 12/01/22 10:02 EDT Office Visiton 09-27-2022 Follow-up visit [id number] Vivien Paz 1935 M Date Provider Department Center 09/27/2022 [id number] CAR Hos Family History Problem Relation Age of Onset Coronary artery disease Paternal Grandmother Family Status - Relation Status Age at Paternal Grandmother Level of Service:35643 CT OFFICE/OUTPATIENT ESTABLISHED MOD MDM 30-39 MIN Reason for Visit and Comments: Follow-up [415122] - Pt is here for Hospital f/u tbh pt states he was laying in bed and started having chest pains Normal [facility] 36on 08-02-2022 37 Filled for #12 x 3rf . Per last note with Dr. Jaeger, patient takes losartan 25mg once weekly. This is what Dr. Jaeger notated in his chart, as well. Normal [facility] ECHOCARDIO M/2D COMPLETEon 0 06-21-2022 ECHOCARDIO M/2D COMPLETE Patient: ROBIN PAZ Exam Date: 06/21/2022 : 1935 Gender:M Ordering : DR DANGELO JAEGER M.D. Admission #: [id number] Family : JAYLON NICOLAS CLINICAL NEUROPSYCHOLOGIST Order #: [id number] CLICK HERE TO VIEW EXAM ECHOCARDIOGRAM REPORT from PROCEDURE: CARDIO PULMONARY ECHOCARDIO M/2D COMP INDICATIONS: SOB, Ascending aorta dilatation, Paroxymal atrial fibrillation COMPARISON: None. DESCRIPTION: COMPLETE ECHOCARDIOGRAM Real-time transthoracic echocardiography with 2D, M-mode, spectral and color flow Doppler performed. QUALITY: Technical quality was limited because of rhythm disorder. 71 156# 130/66 HR 72 PST LEFT VENTRICLE: Normal chamber size. Normal left ventricular wall thickness. Global left ventricular systolic function is normal. No obvious regional wall motion abnormality. LV EF: Visual estimation of left ventricular ejection fraction is 65-70%. DIASTOLIC: ATRIAL SEPTUM: LEFT ATRIUM: Normal chamber size. RIGHT ATRIUM: Normal chamber size. RIGHT VENTRICLE: Normal chamber size. Normal right ventricular systolic function. TRICUSPID VALVE: Normal mobility and thickness. No stenosis with trivial regurgitation. No evidence of pulmonary hypertension. RVSP 20 mmHg MITRAL VALVE: Normal mobility and thickness. No evidence of mitral valve stenosis. Mild mitral annular calcification. Trivial mitral regurgitation. AORTIC VALVE: Normal trileaflet appearance. Moderately calcified aortic valve. No evidence of significant aortic stenosis. No aortic regurgitation. AORTIC ROOT: Aorta sinuses are mildly enlarged for BSA, measuring 4.1 cm. Ascending aorta is moderately enlarged at 4.4 cm. PULMONIC VALVE: Normal thickness and mobility. No stenosis. Trivial regurgitation. PERICARDIUM: No evidence of pericardial effusion. IVC: Collapses with inspirations. IVC is normal in size. PLEURA: CONCLUSION: 1. Normal biventricular systolic function. LVEF is 65 to 70%. 2. No significant valvular dysfunction. 3. Moderately calcified aortic valve with no significant stenosis. 4. Normal right-sided pressures. 5. Moderately enlarged ascending aorta, measuring 4.4 cm. 6. No pericardial effusion. Dictated by: Dangelo Jaeger M.D. on 06/22/2022 at 13:17 Approved by: Dangelo Jaeger M.D. on 06/22/2022 at 13:32 Normal [facility] Office Visiton 06-05-2022 Follow-up visit [id number] Vivien Paz 1935 [facility] Provider Department Center 06/05/2022 Ghislaine-DANGELO JAEGER [facility] Family History Problem Relation Age of Onset Coronary artery disease Paternal Grandmother Family Status - Relation Status Age at Paternal Grandmother Level of Service:92032 CT OFFICE/OUTPATIENT ESTABLISHED MOD MDM 30-39 MIN Reason for Visit and Comments: Atrial Fibrillation [80] Hypertension [800973] Normal [facility] ISTAT XRay CREon 03-22-2022 Creatinine [Mass/Vol] 0.8 mg/dL Normal 0.6-1.3 [facility] Comment on above: Result Comment: ER/E SD physician is notified/shown all ISTAT results. Critical values may be confirmed by laboratory testing if deemed necessary by ER attending doctor. Performed By: #### I SCRE #### [facility] [address] [place] [address] Point of Care testing , ISTAT GFR ( > 60 Normal [facility] Comment on above: Result Comment: GFR estimated reference range: According to KDOQI guidelines, <60 ml/min/1.73m2 is sufficient to diagnose a patient with chronic kidney disease. PERFORMED BY: [place] [address] PATHOLOGIST [employer] DORINDA FISHER M.D. Performed By: #### I SCRE #### [facility] [address] [place] [address] Point of Care testing , ISTAT GFR (Non- Am > 60 Normal [facility] Comment on above: Performed By: #### I SCRE #### [facility] [address] [id number] [facility] Point of Care testing , MR prostate wo/w conon 03-22 MR prostate wo/w con [facility] [address] [id number] MRI Report Signed Patient: Robin Paz MR#: [id number] 76 : 1935 Acct:[id number] Age/Sex: 86 / M ADM Date: 03/22/22 Loc: MR Room: Type: [facility] Attending Dr: Don Zhang MD Copies to: Don Zhang MD Ordering Provider: Don Zhang MD Date of Service: 03/22/22 MR/MR prostate wo/w con: R97.20 EXAMINATION: MR prostate wo/w con HISTORY: Elevated PSA COMPARISON: NONE TECHNIQUE: Multiparametric imaging of the prostate gland was performed with IV contrast. FINDINGS: Prostate Dimensions: 6.4 x 4.3 x 6.3 cm Prostate Volume: 90 mL Peripheral Zone: Heterogenous inT2 signal suggestive of prior prostatitis. A focal area T2 hypointensity is identified involving the lateral aspect of the right peripheral zone at the level of the mid gland measuring 11 x 6 mm with associated restricted diffusion and low ADC value. No extraprostatic extension is seen. Please see series 4 image 17, series 650 image 14 and series 600, image 14. Central/Transitional Zone: BPH changes. Seminal Vesicles: Unremarkable Neurovascular bundles: Unremarkable. Lymphadenopathy: No evidence of lymphadenopathy. Bladder: No focal lesion. Bowel: Diverticulosis. Peritoneal Cavity: Trace free fluid. Bones: No suspicious bony lesion. MR/MR prostate wo/w con IMPRESSION: A focal area T2 hypointensity is identified involving the lateral aspect of the right peripheral zone at the level of the mid gland measuring 11 x 6 mm with associated restricted diffusion and low ADC value. No extraprostatic extension is seen. Please see series 4 image 17, series 650 image 14 and series 600, image 14. PI-RADS 4. Targeting of this region on biopsy is recommended. Impression dictated by: Shahbaz Chahal Jr., D.OFranklin03/22/2022 12:41 PM Dictation Location: RADIO-PC-09 Transcribed By: BIRDIE 03/22/22 1241 Dictated By: Shahbaz Chahal Jr, DO 03/22/22 1228 Signed By: 03/22/22 1241 [facility] CBC AUTO DIFFon 10-13-2021 BASO # 0.1 103/ul Normal 0.0-0.1 [facility] Comment on above: Performed By: #### C BC #### [facility] [address] [place] [address] Dr. Jose Saenz Basophils/100 WBC (Bld) 0.8 % Normal 0.2-2.0 [facility] Comment on above: Performed By: #### C BC #### [facility] [address] [place] [address] Dr. Jose Saenz EO # 0.4 103/ul Normal 0.0-0.7 [facility] Comment on above: Performed By: #### C BC #### [facility] [address] [place] [address] Dr. Jose Sanez Eosinophils/100 WBC (Bld) 5.8 % Normal 0.9-7.0 [facility] Comment on above: Performed By: #### C BC #### [facility] [address] [place] [address] Dr. Jose Saenz Erythrocyte distribution width (RBC) [Ratio] 13.2 % Normal 11.0-15.0 [facility] Comment on above: Performed By: #### C BC #### [facility] [address] [place] [address] Dr. Jose Saenz Hematocrit (Bld) [Volume fraction] 33.3 % Critically low 42.0-54.0 [facility] Comment on above: Performed By: #### C BC #### [facility] [address] [place] [address] Dr. Jose Saenz Hemoglobin (Bld) [Mass/Vol] 10.6 g/dL Critically low 14.0-18.0 [facility] Comment on above: Performed By: #### C BC #### [facility] [address] [place] [address] Dr. Jose Saenz IG # 0.03 10e3/ul Normal 0.00-0.03 [facility] Comment on above: Performed By: #### C BC #### [facility] [address] [place] [address] Dr. Jose Saenz IG % 0.4 % Normal 0.0-0.5 [facility] Comment on above: Performed By: #### C BC #### [facility] [address] [place] [address] Dr. Jose Saenz LYMPH # 1.4 103/ul Normal 1.2-3.8 [facility] Comment on above: Performed By: #### C BC #### [facility] [address] [place] [address] Dr. Jose Saenz Lymphocytes/100 WBC (Bld) 18.9 % Critically low 20.5-60.0 [facility] Comment on above: Performed By: #### C BC #### [facility] [address] [place] [address] Dr. Jose Saenz MANUAL DIFF REQ NO Normal [facility] Comment on above: Performed By: #### C BC #### [facility] [address] [place] [address] Dr. Jose Saenz MCH (RBC) [Entitic mass] 29.2 pg Normal 25.9-34.0 [facility] Comment on above: Performed By: #### C BC #### [facility] [address] [place] [address] Dr. Jose Saenz MCHC (RBC) [Mass/Vol] 31.8 g/dL Normal 29.9-35.2 [facility] Comment on above: Performed By: #### C BC #### [facility] [address] [place] [address] Dr. Jose Saenz MCV (RBC) [Entitic vol] 91.7 fL Normal 80.0-94.0 [facility] Comment on above: Performed By: #### C BC #### [facility] [address] [place] [address] Dr. Jose Saenz MONO # 0.6 103/ul Normal 0.3-0.8 [facility] Comment on above: Performed By: #### C BC #### [facility] [address] [address] [address] Jose Saenz Monocytes/100 WBC (Bld) 8.8 % Normal 1.7-12.0 [facility] Comment on above: Performed By: #### C BC #### [facility] [address] [address] [address] Jose Saenz NEUT # 4.7 103/ul Normal 1.4-6.5 [facility] Comment on above: Performed By: #### C BC #### [facility] [address] [place] [address] Dr. Jose Saenz Neutrophils/100 WBC (Bld) 65.3 % Normal 43.0-75.0 [facility] Comment on above: Performed By: #### C BC #### [facility] [address] [place] [address] Dr. Jose Saenz Platelet mean volume (Bld) [Entitic vol] 11.2 fL Normal 9.5-13.5 [facility] Comment on above: Performed By: #### C BC #### [facility] [address] [place] [address] Dr. Jose Saenz PLT 276 103/ul Normal 150-450 [facility] Comment on above: Performed By: #### C BC #### [facility] [address] [place] [address] Dr. Jose Saenz RBC 3.63 106/ul Critically low 4.70-6.10 [facility] Comment on above: Performed By: #### C BC #### [facility] [address] [place] [address] Dr. Jose Saenz WBC 7.2 103/ul Normal 4.0-11.0 [facility] Comment on above: Performed By: #### C BC #### [facility] [address] [place] [address] Dr. Jose Saenz PROF 14(COMP METB)on 022 Albumin [Mass/Vol] 3.3 g/dL Critically low 3.4-5.0 Th e [facility] Comment on above: Performed By: #### C MP #### [facility] [address] [place] [address] Dr. Jose Saenz Albumin/Globulin [Mass ratio] 0.9 {ratio} Normal [facility] Comment on above: Performed By: #### C MP #### [facility] [address] [address] [address] Jose Saenz ALP [Catalytic activity/Vol] 72 U/L Normal 46-116 [facility] Comment on above: Performed By: #### C MP #### [facility] [address] [place] [address] Dr. Jose Saenz ALT [Catalytic activity/Vol] 28 U/L Normal 16-63 [facility] Comment on above: Performed By: #### C MP #### [facility] [address] [place] [address] Dr. Jose Saenz Anion gap [Moles/Vol] 10.0 mmol/L Normal [facility] Comment on above: Performed By: #### C MP #### [facility] [address] [place] [address] Dr. Jose Saenz AST [Catalytic activity/Vol] 21 U/L Normal 15-37 [facility] Comment on above: Performed By: #### C MP #### [facility] [address] [place] [address] Dr. Jose Saenz Bilirubin [Mass/Vol] 0.4 mg/dL Normal 0.2-1.0 [facility] Comment on above: Performed By: #### C MP #### [facility] [address] [place] [address] Dr. Jose Saenz Calcium [Mass/Vol] 8.8 mg/dL Normal 8.5-10.1 [facility] Comment on above: Performed By: #### C MP #### [facility] [address] [place] [address] Dr. Jose Saenz Chloride [Moles/Vol] 102 mmol/L Normal 98-107 [facility] Comment on above: Performed By: #### C MP #### [facility] [address] [address] [address] Jose Saenz CO2 [Moles/Vol] 32.0 mmol/L Normal 21.0-32.0 [facility] Comment on above: Performed By: #### C MP #### [facility] [address] [address] [address] Jose Saenz Creatinine [Mass/Vol] 0.82 mg/dL Normal 0.70-1.30 [facility] Comment on above: Performed By: #### C MP #### [facility] [address] [address] [address] Jose Saenz EGFR-AF SCOTTISH >60 Normal >=60 [facility] Comment on above: Performed By: #### C MP #### [facility] [address] [place] [address] Dr. Jose Saenz EGFR-NON AF SCOTTISH >60 Normal >=60 [facility] Comment on above: Performed By: #### C MP #### [facility] [address] [place] [address] Dr. Jose Saenz Globulin (S) [Mass/Vol] 3.7 g/dL Normal [facility] Comment on above: Performed By: #### C MP #### [facility] [address] [place] [address] Dr. Jose Saenz Glucose [Mass/Vol] 86 mg/dL Normal 74-106 [facility] Comment on above: Performed By: #### C MP #### [facility] [address] [place] [address] Dr. Jose Saenz Potassium [Moles/Vol] 5.0 mmol/L Normal 3.5-5.1 [facility] Comment on above: Performed By: #### C MP #### [facility] [address] [place] [address] Dr. Jose Saenz Protein [Mass/Vol] 7.0 g/dL Normal 6.4-8.2 [facility] Comment on above: Performed By: #### C MP #### [facility] [address] [place] [address] Dr. Jose Saenz Sodium [Moles/Vol] 139 mmol/L Normal 136-145 [facility] Comment on above: Performed By: #### C MP #### [facility] [address] [address] [address] Jose Saenz Urea nitrogen [Mass/Vol] 11.0 mg/dL Normal 7.0-18.0 [facility] Comment on above: Performed By: #### C MP #### [facility] [address] [address] [address] Jose Saenz Urea nitrogen/Creatinine [Mass ratio] 13.4 mg/mg Normal [facility] Comment on above: Performed By: #### C MP #### [facility] [address] [address] [address] Jose Saenz UA RANDOM W/MICROSCOPICon BACTERIA TRACE Abnormal NONE SEEN [facility] Comment on above: Performed By: #### U AMIC ####[facility] [address] [place], [place] [address]Dr[place] Saenz Bilirubin Ql (U) Negative Normal NEGATIVE [facility] Comment on above: Performed By: #### U AMIC ####[facility] [address] [place], [place] [address]DrFranklin Saenz CAST NONE SEEN Normal NONE [facility] Comment on above: Performed By: #### U AMIC ####[facility] [address] [address]Dr. Jose Saenz Clarity (U) CLEAR Normal CLEAR [facility] Comment on above: Performed By: #### U AMIC ####[facility] [address] [address]Dr. Jose Saenz Color (U) LT. YELLOW Normal YELLOW [facility] Comment on above: Performed By: #### U AMIC ####[facility] [address] [address]Dr. Jose Saenz Crystals LM Nom (Urine sed) NONE SEEN Normal NONE SEEN [facility] Comment on above: Performed By: #### U AMIC ####[facility] [address] [address]Dr. Jose Saenz Epithelial cells LM Ql (Urine sed) RARE Normal NONE SEEN /RARE [facility] Comment on above: Performed By: #### U AMIC ####[facility] [address] [place], [place] [address]Dr. Jose Saenz Glucose Ql (U) Negative Normal NEGATIVE [facility] Comment on above: Performed By: #### U AMIC ####[facility] [address] [place], [place] [address]Dr. Jose Saenz Hemoglobin Ql (U) Negative Normal NEGATIVE [facility] Comment on above: Performed By: #### U AMIC ####[facility] [address] [place], [place] [address]Dr. Jose Saenz Ketones Ql (U) Negative Normal NEGATIVE [facility] Comment on above: Performed By: #### U AMIC ####[facility] [address] [place], [place] [address]Dr. Jose Saenz LEUKOCYTES Negative Normal NEGATIVE [facility] Comment on above: Performed By: #### U AMIC ####[facility] [address] [place], [place] [address]Dr. Jose Saenz MUCOUS NONE SEEN Normal NONE SEEN [facility] Comment on above: Performed By: #### U AMIC ####[facility] [address] [place], [place] [address]Dr. Jose Saenz Nitrite Ql (U) Negative Normal NEGATIVE [facility] Comment on above: Performed By: #### U AMIC ####[facility] [address] [place], [place] [address]Dr. Jose Saenz pH (U) 6.5 [pH] Normal 5-9 [facility] Comment on above: Performed By: #### U AMIC ####[facility] [address] [place], [place] [address]Dr. Jose Saenz RBC NONE SEEN Abnormal 0-2 [facility] Comment on above: Performed By: #### U AMIC ####[facility] [address] [place], [place] [address]Dr. Jose Saenz SPEC GRAVITY <=1.005 Abnormal 1.005-<=1.025 [facility] Comment on above: Performed By: #### U AMIC ####[facility] [address] [address]Dr. Jose Saenz UA PROTEIN Negative Normal NEGATIVE/ TRACE [facility] Comment on above: Performed By: #### U AMIC ####[facility] [address] [id number]. Jose Saenz Urobilinogen Qn (U) 0.2 {Sammy'U}/dL Normal 0.2 - 1. 0 [facility] Comment on above: Performed By: #### U AMIC ####[facility] [address] [address]Dr. Jose Saenz WBC NONE SEEN Normal NONE SEEN [facility] Comment on above: Performed By: #### U AMIC ####[facility] [address] [address]Dr. Jose Seanz VITAMIN B12on 10-13-2021 Cobalamin (Vitamin B12) [Mass/Vol] 405.0 pg/mL Normal 193.0-986.0 [facility] Comment on above: Performed By: #### V ITB12, PSASC #### [facility] [address] [id number] Jose Saenz Covid-19 PCR (CVDTB)on SARS-CoV-2 (COVID-19) RNA DANIKA+probe Ql (Unsp spec) Not detected Normal NOT DETECTED [facility] Comment on above: Result Comment: When diagnostic testing is negative, the possibility of a false negative should be considered in the context of a patient's recent exposures and the presence of clinical signs and symptoms consistent with SARS-CoV-2. This test is not yet approved or cleared by the [place] FDA. When there are no FDA-approved or cleared tests available, and other criteria are met, FDA can make tests available under an emergency access mechanism called an Emergency Use Authorization (EUA). The EUA for this test is supported by the Non Clinical Advisor of Health and Human Service's declaration that circumstances exist to justify the emergency use of in vitro diagnostics for the detection and/or diagnosis of the virus that causes COVID-19. This EUA will remain in effect for the duration of the COVID-19 declaration justifying emergency of IVDs, unless it is terminated or revoked by the FDA (after which the test may no longer be used). Performed By: #### C VDTBH ####[facility] [address] [address]DrFrank[place] Saenz GROUP A STREP CULTUREon S. pyogenes Ag Ql (Unsp spec) Culture Observations: NEGATIVE FOR GROUP A STREPTOCOCCUS. Normal [facility] Comment on above: Performed By: #### G RASTCX SSCRN #### [facility] [address] [place] [address] Dr. Jose Saenz STREPT SCREENon 09-17-2021 STREP SCREEN A Negative Normal NEGATIVE [facility] Comment on above: Performed By: #### G RASTCX SSCRN #### [facility] [address] [place] [address] Dr. Jose Saenz CBC AUTO DIFFon 07-26-2021 BASO # 0.1 103/ul Normal 0.0-0.1 [facility] Comment on above: Performed By: #### C BC ####[facility] [address] [place], [place] [address]DrFrank[place] Saenz Basophils/100 WBC (Bld) 1.1 % Normal 0.2-2.0 [facility] Comment on above: Performed By: #### C BC ####[facility] [address] [place], [place] [address]DrFranklin Saenz EO # 0.3 103/ul Normal 0.0-0.7 [facility] Comment on above: Performed By: #### C BC ####[facility] [address] [place], [place] [address]DrFranklin Saenz Eosinophils/100 WBC (Bld) 5.3 % Normal 0.9-7.0 [facility] Comment on above: Performed By: #### C BC ####[facility] [address] [place], [place] [address]Dr. Jose Saenz Erythrocyte distribution width (RBC) [Ratio] 13.5 % Normal 11.0-15.0 [facility] Comment on above: Performed By: #### C BC ####[facility] [address] [address]Dr. Jose Saenz Hematocrit (Bld) [Volume fraction] 33.9 % Critically low 42.0-54.0 [facility] Comment on above: Performed By: #### C BC ####[facility] [address] [address]. Jose Saenz Hemoglobin (Bld) [Mass/Vol] 11.1 g/dL Critically low 14.0-18.0 [facility] Comment on above: Performed By: #### C BC ####[facility] [address] [place] [address]Dr. Jose Dany IG # 0.02 10e3/ul Normal 0.00-0.03 [facility] Comment on above: Performed By: #### C BC ####[facility] [address] [place], [place] [address]Dr. Jose Saenz IG % 0.4 % Normal 0.0-0.5 [facility] Comment on above: Performed By: #### C BC ####[facility] D[address]pv[address] [place], [place] [address]Dr. Jose Dany LYMPH # 1.5 103/ul Normal 1.2-3.8 [facility] Comment on above: Performed By: #### C BC ####[facility] Ekazdkajdi[address] [place], [place] [address]Dr. Jose Dany Lymphocytes/100 WBC (Bld) 28.5 % Normal 20.5-60.0 [facility] Comment on above: Performed By: #### C BC ####[facility] Xpghcndetr[address] [place], [place] [address]Dr. Jose Dany MANUAL DIFF REQ NO Normal [facility] Comment on above: Performed By: #### C BC ####[facility] R[address]akightrn[address] [place], [place] [address]Dr. Jose Dany MCH (RBC) [Entitic mass] 29.7 pg Normal 25.9-34.0 [facility] Comment on above: Performed By: #### C BC ####[facility] [address] [address]Dr. Jose Saenz MCHC (RBC) [Mass/Vol] 32.7 g/dL Normal 29.9-35.2 [facility] Comment on above: Performed By: #### C BC ####[facility] Hyypgfkkoa[address] [place], [place] [address]Dr. Jose Saenz MCV (RBC) [Entitic vol] 90.6 fL Normal 80.0-94.0 [facility] Comment on above: Performed By: #### C BC ####[facility] Nqgus[address]tdvi[address] [place], [place] [address]Dr. Jose Dany MONO # 0.4 103/ul Normal 0.3-0.8 [facility] Comment on above: Performed By: #### C BC ####[facility] [address]bbs[address] [place], [place] [address]Dr. Jose Dany Monocytes/100 WBC (Bld) 7.2 % Normal 1.7-12.0 [facility] Comment on above: Performed By: #### C BC ####[facility] U[address]uz[address] [place], [place] [address]Dr. Jose Saenz NEUT # 3.0 103/ul Normal 1.4-6.5 [facility] Comment on above: Performed By: #### C BC ####[facility] Ibofdoewuy[address] [place], [place] [address]Dr. Jose Dany Neutrophils/100 WBC (Bld) 57.5 % Normal 43.0-75.0 [facility] Comment on above: Performed By: #### C BC ####[facility] Ttpx[address]ii[address] [place], [place] [address]Dr. Jose Saenz Platelet mean volume (Bld) [Entitic vol] 9.8 fL Normal 9.5-13.5 [facility] Comment on above: Performed By: #### C BC ####[facility] [address] [place] [phone]. Jose Saenz PLT 276 103/ul Normal 150-450 [facility] Comment on above: Performed By: #### C BC ####[facility] [address] [phone]. Jose Saenz RBC 3.74 106/ul Critically low 4.70-6.10 [facility] Comment on above: Performed By: #### C BC ####[facility] [address] [phone]. Jose Saenz WBC 5.3 103/ul Normal 4.0-11.0 [facility] Comment on above: Performed By: #### C BC ####[facility] [address] [address]Dr[place] Saenz GLYCOHEMOGLOBIN A1Con 2021 ADA RECOMMENDATION ADA THERAPEUTIC TARG ET 6.0 - 7.0 ACTION SUGGESTED > 7.0 Normal [facility] Comment on above: Performed By: #### A 1C #### [facility] [address] [address] [address] Jose Saenz Glucose [Mass/Vol] 120 mg/dL Normal [facility] Comment on above: Performed By: #### A 1C #### [facility] [address] [address] [address] Jose Saenz HbA1c (Bld) [Mass fraction] 5.8 % Normal <=6.0 [facility] Comment on above: Performed By: #### A 1C #### [facility] [address] [address] [address] Jose Saenz LIPID PROFILEon 07-26-2021 CHOL-HDL RATIO NORM SEE BELOW Normal [facility] Comment on above: Result Comment: 3.3 - 4.4 LOW RISK 4.4 - 7.1 AVERAGE RISK 7.1 - 11.0 MODERATE RISK >11.0 HIGH RISK Performed By: #### C MP, TSH, LIPID ####[facility] Jr[address]manwzme[address] [place] [address]Dr. Jose Saenz Cholesterol [Mass/Vol] 177 mg/dL Normal <=200 [facility] Comment on above: Performed By: #### C MP, TSH, LIPID ####[facility] [address]mpa[address] [place] [address]Dr. Jose Saenz Cholesterol in HDL [Mass/Vol] 63 mg/dL Critically high 40-60 [facility] Comment on above: Performed By: #### C MP, TSH, LIPID ####[facility] [address] [address]Dr. Silvanalan Saenz Cholesterol in LDL [Mass/Vol] 93.8 mg/dL Normal [facility] Comment on above: Performed By: #### C MP, TSH, LIPID ####[facility] [address] [address]Dr. Jose Saenz Cholesterol.total/C holesterol in HDL [Mass ratio] 2.8 {ratio} Normal [facility] Comment on above: Performed By: #### C MP, TSH, LIPID ####[facility] [address] [place] [address]Dr. Jose Saenz HDL NORMAL > or = 60 mg/dl - LO W CARDIOVASCULAR RISK <40 mg/dl - HIGH CARDIOVASCULAR RISK Normal [facility] Comment on above: Performed By: #### C MP, TSH, LIPID ####[facility] [address]lev[address] [address]Dr. Jose Saenz LDL CALC NORMAL SEE BELOW Normal [facility] Comment on above: Result Comment: <100 mg/dl OPTIMAL 100 - 129 mg/dl NEAR OR ABOVE OPTIMAL 130 - 159 mg/dl BORDERLINE HIGH 160 - 189 mg/dl HIGH >190 mg/dl VERY HIGH Performed By: #### C MP, TSH, LIPID ####[facility] [address] [place] [address]Dr. Silvanalan Saenz Triglyceride [Mass/Vol] 101 mg/dL Normal <=150 [facility] Comment on above: Performed By: #### C MP, TSH, LIPID ####[facility] [address] [place] [address]Dr. Jose Saenz VLDL CALC 20.2 mg/dL Normal [facility] Comment on above: Performed By: #### C MP, TSH, LIPID ####[facility] [address] [place] [address]Dr. Jose Saenz PROF 14(COMP METB)on 022 Albumin [Mass/Vol] 3.3 g/dL Critically low 3.4-5.0 [facility] Comment on above: Performed By: #### C MP, TSH, LIPID ####[facility] [address] [place] [address]Dr. Jose Saenz Albumin/Globulin [Mass ratio] 1.0 {ratio} Normal [facility] Comment on above: Performed By: #### C MP, TSH, LIPID ####[facility] [address] [place] [address]Dr. Jose Saenz ALP [Catalytic activity/Vol] 80 U/L Normal 46-116 [facility] Comment on above: Performed By: #### C MP, TSH, LIPID ####[facility] Ugvyfcauvg[address] [place] [address]Dr. Jose Saenz ALT [Catalytic activity/Vol] 22 U/L Normal 16-63 [facility] Comment on above: Performed By: #### C MP, TSH, LIPID ####[facility] [address]fbgyfko[address] [place] [address]Dr. Jose Saenz Anion gap [Moles/Vol] 10.1 mmol/L Normal [facility] Comment on above: Performed By: #### C MP, TSH, LIPID ####[facility] [address]qz[address] [place] [address]Dr. Jose Saenz AST [Catalytic activity/Vol] 19 U/L Normal 15-37 [facility] Comment on above: Performed By: #### C MP, TSH, LIPID ####[facility] [address]rl[address] [place] [address]Dr. Jose Saenz Bilirubin [Mass/Vol] 0.5 mg/dL Normal 0.2-1.3 [facility] Comment on above: Performed By: #### C MP, TSH, LIPID ####[facility] [address] [place] [address]Dr. Jose Saenz Calcium [Mass/Vol] 8.3 mg/dL Critically low 8.5-10.1 Th e [facility] Comment on above: Performed By: #### C MP, TSH, LIPID ####[facility] [address]is[address] [place] [address]Dr. Jose Saenz Chloride [Moles/Vol] 104 mmol/L Normal 98-107 [facility] Comment on above: Performed By: #### C MP, TSH, LIPID ####[facility] [address]rikr[address] [place] [address]Dr. Jose Saenz CO2 [Moles/Vol] 31.5 mmol/L Critically high 22.0-30.0 [facility] Comment on above: Performed By: #### C MP, TSH, LIPID ####[facility] [address] [place], [place] [address]Dr. Jose Saenz Creatinine [Mass/Vol] 0.77 mg/dL Normal 0.66-1.25 [facility] Comment on above: Performed By: #### C MP, TSH, LIPID ####[facility] [address] [place] [address]Dr. Jose Saenz EGFR-AF SCOTTISH >60 Normal >=60 The [facility] Comment on above: Performed By: #### C MP, TSH, LIPID ####[facility] [address] [place] [address]Dr. Jose Saenz EGFR-NON AF SCOTTISH >60 Normal >=60 [facility] Comment on above: Performed By: #### C MP, TSH, LIPID ####[facility] [address]ji[address] [place] [address]Dr. Jose Saenz Globulin (S) [Mass/Vol] 3.2 g/dL Normal [facility] Comment on above: Performed By: #### C MP, TSH, LIPID ####[facility] [address] [place] [address]Dr. Jose Saenz Glucose [Mass/Vol] 87 mg/dL Normal 74-106 The [facility] Comment on above: Performed By: #### C MP, TSH, LIPID ####[facility] [address]fg[address] [place] [address]Dr. Jose Saenz Potassium [Moles/Vol] 4.6 mmol/L Normal 3.4-5.0 [facility] Comment on above: Performed By: #### C MP, TSH, LIPID ####[facility] [address] [place] [phone]. Jose Saenz Protein [Mass/Vol] 6.5 g/dL Normal 6.1-8.2 The [facility] Comment on above: Performed By: #### C MP, TSH, LIPID ####[facility] [address] [place] [phone]. Jose Saenz Sodium [Moles/Vol] 141 mmol/L Normal 137-145 The [facility] Comment on above: Performed By: #### C MP, TSH, LIPID ####[facility] [address]ioxu[address] [place] [address]Dr. Jose Saenz Urea nitrogen [Mass/Vol] 9.0 mg/dL Normal 7.0-18.0 [facility] Comment on above: Performed By: #### C MP, TSH, LIPID ####[facility] [address]sojvp[address] [place] [phone]. Jose Saenz Urea nitrogen/Creatinine [Mass ratio] 11.7 mg/mg Normal [facility] Comment on above: Performed By: #### C MP, TSH, LIPID ####[facility] [address]rsfx[address] [place] [phone] Saenz TSHon 07-26-2021 TSH 2.304 uIU/mL Normal 0.470-4.680 The [facility] Comment on above: Performed By: #### C MP, TSH, LIPID #### [facility] [address] [address] [address] Jose Saenz TSH RANGE SEE BELOW Normal [facility] Comment on above: Result Comment: <0.3 4 UIU/ml HYPERTHYROID 0.34-5.60 UIU/ml EUTHYROID >5.60 UIU/ml HYPOTHYROID Performed By: #### C MP, TSH, LIPID #### [facility] [address] [address] [address] Jose Saenz BASIC METABOLIC PANELon 11-2 Calcium [Mass/Vol] 8.7 mg/dL Normal 8.6-10.3 [facility] Comment on above: Performed By: #### 0 [id number] #### [facility] [address] [place] [address], [place] Chloride [Moles/Vol] 104 mmol/L Normal 98-107 The [facility] Comment on above: Performed By: #### 0 [id number] #### [facility] [address] [place] [address], [place] CO2 [Moles/Vol] 29 mmol/L Normal 21-31 [facility] Comment on above: Performed By: #### 0 [id number] #### [facility] [address] [place] [address], [place] Creatinine [Mass/Vol] 0.69 mg/dL Low 0.70-1.30 [facility] Comment on above: Performed By: #### 0 [id number] #### [facility] [address] [place] [address], [place] GFR/1.73 sq M.predicted among blacks MDRD (S/P/Bld) [Vol rate/Area] mL/min/{1.73_m2} Normal >60 The [facility] Comment on above: Result Comment: Calc ulation may not be valid for patients over 70 years Performed By: #### 0 [id number] #### [facility] [address] [place] [address], [place] GFR/1.73 sq M.predicted among non-blacks MDRD (S/P/Bld) [Vol rate/Area] mL/min/{1.73_m2} Normal >60 The [facility] Comment on above: Result Comment: Calc ulation may not be valid for patients over 70 years Performed By: #### 0 [id number] #### [facility] [address] [place] [address], [place] Glucose [Mass/Vol] 97 mg/dL Normal 70-100 The [facility] Comment on above: Performed By: #### 0 [id number] #### [facility] [address] [place] [address], [place] Potassium [Moles/Vol] 4.0 mmol/L Normal 3.5-5.1 The [facility] Comment on above: Performed By: #### 0 [id number] #### [facility] [address] [place] [address], [place] Sodium [Moles/Vol] 139 mmol/L Normal 136-145 The [facility] Comment on above: Performed By: #### 0 [id number] #### [facility] [address] [place] [address], [facility] Urea nitrogen [Mass/Vol] 10 mg/dL Normal 7-25 The [facility] Comment on above: Performed By: #### 0 [id number] #### [facility] [address] [place] [address], [facility] CBC COMPLETE BLOOD COUNTon 05-08-2020 Erythrocyte distribution width (RBC) [Ratio] 13.2 % Normal 11.5-15.0 The [facility] Comment on above: Performed By: #### 5 [id number] #### [facility] [address] [place] [address], [facility] Hematocrit (Bld) [Volume fraction] 34.6 % Low 39.0-50.0 The [facility] Comment on above: Performed By: #### 5 [id number] #### [facility] [address] [place] [address], [facility] Hemoglobin (Bld) [Mass/Vol] 11.4 g/dL Low 13.0-17.0 The [facility] Comment on above: Performed By: #### 5 [id number] #### [facility] [address] [place] [address], [place] MCH (RBC) [Entitic mass] 29.8 pg Normal 27.0-33.0 The [facility] Comment on above: Performed By: #### 5 [id number] #### [facility] [address] [place] [address], [facility] MCHC (RBC) [Mass/Vol] 32.9 g/dL Normal 32.0-35.0 The [facility] Comment on above: Performed By: #### 5 [id number] #### [facility] [address] [address], [facility] MCV (RBC) [Entitic vol] 90.3 fL Normal 82.0-98.0 The [facility] Comment on above: Performed By: #### 5 [id number] #### [facility] [address] [place] [address], [facility] Nucleated RBC/100 WBC (Bld) [Ratio] 0 % Normal 0-0 The [facility] Comment on above: Performed By: #### 5 [id number] #### [facility] [address] [address], [facility] PLAT CNT 310 10*3/uL Normal 150-400 The [facility] Comment on above: Performed By: #### 5 [id number] #### [facility] [address] [address], [facility] RBC (Bld) [#/Vol] 3.83 10*6/uL Low 4.20-5.70 The [facility] Comment on above: Performed By: #### 5 [id number] #### [facility] [address] [place] [address], [facility] WBC (Bld) [#/Vol] 6.55 10*3/uL Normal 4.00-10.60 The [facility] Comment on above: Performed By: #### 5 [id number] #### [facility] [address] [place] [address], [facility] TYPE AND CROSSMATCHon 2020 ABO INTERPRETATION A Normal [facility] Comment on above: Performed By: #### 6 [id number] #### [facility] [address] [place] [address], [facility] RH INTERPRETATION Positive Normal The [facility] Comment on above: Performed By: #### 6 [id number] #### [facility] [address] [place] [address], [facility] Vital Signs Date Time Vital Sign Value Performing Clinician Dewayne litchris 12-01-2022 09:09-0400 Blood Pressure Location Don ZHANG [facility] 12-01-2022 09:09-0400 Diastolic blood pressure 78 mm[Hg] Don ZHANG [facility] 12-01-2022 09:09-0400 Heart rate 74 /min Don ZHANG [facility] 12-01-2022 09:09-0400 Systolic blood pressure 128 mm[Hg] Dondaisy ZHANG [facility] 06-02-2022 10:56-0500 Blood Pressure Location Don ZHANG [facility] 06-02-2022 10:56-0500 Diastolic blood pressure 70 mm[Hg] Don ZHANG [facility] 06-02-2022 10:56-0500 Heart rate 65 /min Don ZHANG [facility] 06-02-2022 10:56-0500 Respiratory rate 16 /min Don ZHANG [facility] 06-02-2022 10:56-0500 Systolic blood pressure 114 mm[Hg] Don ZHANG [facility] 12-12-2021 11:49-0400 Blood Pressure Location Don ZHANG [facility] 12-12-2021 11:49-0400 Diastolic blood pressure 85 mm[Hg] Don ZHANG [facility] 12-12-2021 11:49-0400 Heart rate 75 /min Don ZHANG [facility] 12-12-2021 11:49-0400 Respiratory rate 16 /min Don ZHANG [facility] 12-12-2021 11:49-0400 Systolic blood pressure 125 mm[Hg] Don ZHANG [facility] Encounters Encounter Date Encounter Type Care Provider Facility Start: 08-18-[address] [facility] Start: 01-29-2024 End: 01-29-2024 Refill Luciana Nicolas TRAVEL COORDINATOR Work Phone: [facility] Comment on above: Phantom pain (Primar y Dx) Start: 11-21-2023 End: 11-21-2023 ambulatory LUCIANA AICHHOLZ Not Available Start: 08-20-2023 End: 08-20-2023 ambulatory LUCIANA AICHHOLZ Not Available Start: 08-17-2023 End: 08-18-2023 ambulatory Don ZHANG Facility:[facility] Start: 08-17-2023 End: 08-17-2023 Patient encounter procedure Don ZHANG [facility] Start: 06-18-2023 End: 06-18-2023 ambulatory FADY FOX Not Available Start: 06-11-2023 End: 06-12-2023 ambulatory Don ZHANG Facility:[facility] [place] Start: 05-29-2023 Clinisync Result Encounter Luciana Fidencio TRAVEL COORDINATOR Work Phone: [facility] External Department Unsolicited Start: 05-29-2023 Clinisync Result Encounter Luciana Fidencio TRAVEL COORDINATOR Work Phone: [facility] Unsolicited Start: 2023 Rickey Galo MD Work Phone: [facility] Start: 2023 Rickey Galo MD Work Phone: [facility] Start: 2023 End: 2023 ambulatory LUCIANA ERICANataleeKIMMIE Not Available Start: 2023 End: 2023 Patient encounter procedure Luciana Fidencio TRAVEL COORDINATOR Work Phone: [facility] Comment on above: Encounter for subseq uent annual wellness visit (AWV) in Medicare patient (Primary Dx); Phantom pain (CMS/HCC); Iron deficiency anemia, unspecified iron deficiency anemia type; Primary hypertension (CMS/HCC); 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 (CMS/HCC); Benign prostatic hyperplasia with lower urinary tract symptoms, symptom details unspecified; Vitamin D deficiency; Vitamin B12 deficiency Start: 03-27-2023 End: 03-27-2023 ambulatory DANGELO UPTOSHIA [facility] Start: 12-01-2022 End: 12-02-2022 ambulatory Don ZHANG Facility:[facility] [place] Start: 12-01-2022 End: 12-01-2022 Patient encounter procedure Don ZHANG [facility] Start: 09-27-2022 End: 09-27-2022 ambulatory JESÚS CAR [facility] Start: 06-21-2022 End: 06-22-[address] DANGELO JAEGER Facility:[facility] Start: 06-05-2022 End: 06-05-2022 ambulatory [facility] Start: 06-02-2022 End: 06-02-2022 Patient encounter procedure Don ZHANG [facility] Start: 05-16-2022 End: 05-16-2022 Patient encounter procedure Don ZHANG [facility] Start: 03-22-2022 End: 03-22-2022 ambulatory Wesley Diaz Facility:[facility] Start: 02-13-2022 End: 02-14-[address] DON ZHANG . Facility:[facility] Start: 12-12-2021 End: 12-12-2021 Patient encounter procedure Dno ZHANG [facility] Start: 10-26-2021 ambulatory CLINICAL NEUROPSYCHOLOGIST LUCIANA FIDENCIO Facil ity:[facility] Start: 10-13-2021 End: 10-14-2021 ambulatory CLINICAL NEUROPSYCHOLOGIST LUCIANA FIDENCIO Facility:[facility] Start: 09-17-2021 End: 09-17-2021 ambulatory CLINICAL NEUROPSYCHOLOGIST LUCIANA ERICAHKIMMIE Facility:[facility] Start: 09-16-2021 End: 09-16-2021 Patient encounter procedure Don ZHANG [facility] Start: 07-26-2021 End: 07-27-2021 ambulatory MONSTER GUZMAN Facility:[facility] Start: 07-15-2021 ambulatory MONSTER GUZMAN Facility :[facility] Start: 03-08-2021 End: 03-09-2021 ambulatory JANA RODRIGUEZ Facility:[facility] Procedures Date Procedure Procedure Detail Performing Clinician Start: 05-29-2023 TBH UA (CLEAN/CATCH) MICROSCOPIC IF INDICATE Luciana Fidencio TRAVEL COORDINATOR Work Phone: Start: 05-16-2022 Transrectal needle b iopsy of prostate Don ZHANG Start: 02-13-[address] DANGELO JAEGER Comment on above: Performed By: #### P SAD #### [facility] [address] [address] [address] Jose Saenz Start: 10-13-[address] DANGELO JAEGER Comment on above: Performed By: #### V ITB12, PSASC #### [facility] [address] [address] [address] Jose Saenz Start: 03-08-2021 Antibody screen JANA RODRIGUEZ Comment on above: Performed By: #### [id number] #### [facility] [address] Start: 08-19-2015 Transurethral prostatectomy Don ZHANG Start: 07-28-2015 Urodynamic studies Patr rocío ZHANG Start: 11-30-2009 Transurethral prostatectomy Don ZHANG Start: 09-07-2009 Transurethral prostatectomy Don ZHANG Amputation of lower limb Юлия ZHANG Colonoscopy Don ZHANG Hernia repair Don ZHANG Plan of Treatment Date Care Activity Detail Author Start: 2024 Medicare Annual Well ness (AWV) Medicare Annual Wellness (AWV) [facility] Start: 02-18-2024 End: 02-18-2024 Patient encounter procedure 02/18/2024 1:20 PM EST Office Visit [facility] [address] [place] [id number] Luciana Nicolas NP [address] [place] [id number] [facility] Start: 12-16-2023 Influenza vaccination Influenza Vacc ine (#1) [facility] Start: 08-20-2023 End: 08-20-2023 Patient encounter procedure 08/20/2023 1:20 PM EDT Office Visit [facility] [address] [place] [address] Luciana Nicolas, TRAVEL COORDINATOR [address] [place] [address] [facility] Start: 2023 End: 2024 25-hydroxyvitamin D3 [Mass/volume] in Serum or Plasma Vitamin D 25 hydroxy Lab Routine Vitamin D deficiency Expected: 2023 (Approximate), Expires: 2024 [facility] Comment on above: Expected: 2023 (Approximate), Expires: 2024 Start: 2023 End: 2024 CBC W Auto Differential panel - Blood CBC and differential Lab Routine Iron deficiency anemia, unspecified iron deficiency anemia type 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 (CMS/HCC) Vitamin B12 deficiency Expected: 2023 (Approximate), Expires: 2024 [facility] Work Phone: Comment on above: Expected: 2023 (Approximate), Expires: 2024 Start: 2023 End: 2024 Cobalamin (Vitamin B12) [Mass/volume] in Serum or Plasma Vitamin B12 Lab Routine Vitamin B12 deficiency Expected: 2023 (Approximate), Expires: 2024 [facility] Comment on above: Expected: 2023 (Approximate), Expires: 2024 Start: 2023 End: 2024 Comprehensive metabolic 2000 panel - Serum or Plasma Comprehensive metabolic panel Lab Routine Iron deficiency anemia, unspecified iron deficiency anemia type Primary hypertension (CMS/HCC) Benign prostatic hyperplasia with lower urinary tract symptoms, symptom details unspecified Vitamin D deficiency Expected: 2023 (Approximate), Expires: 2024 [facility] Comment on above: Expected: 2023 (Approximate), Expires: 2024 Start: 2023 End: 2024 Iron and Iron binding capacity panel - Serum or Plasma Iron level Lab Routine Iron deficiency anemia, unspecified iron deficiency anemia type Expected: 2023 (Approximate), Expires: 2024 [facility] Comment on above: Expected: 2023 (Approximate), Expires: 2024 Start: 2023 End: 2024 Lipid 1996 panel - Serum or Plasma Lipid panel Lab Routine Primary hypertension ([facility]/HCC) Expected: 2023 (Approximate), Expires: 2024 [facility] Comment on above: Expected: 2023 (Approximate), Expires: 2024 Start: 2023 End: 2024 Microalbumin/Creatinine panel in random Urine Microalbumin / creatinine, urine ratio Lab Routine Primary hypertension (CMS/HCC) Expected: 2023 (Approximate), Expires: 2024 [facility] Comment on above: Expected: 2023 (Approximate), Expires: 2024 Start: 2023 End: 2024 Prostate specific Ag [Mass/volume] in Serum or Plasma PSA Lab Routine Benign prostatic hyperplasia with lower urinary tract symptoms, symptom details unspecified Expected: 2023 (Approximate), Expires: 2024 [facility] Comment on above: Expected: 2023 (Approximate), Expires: 2024 Start: 2023 End: 2024 Urinalysis complete panel - Urine Urinalysis with reflex microscopic (clean catch) Lab Routine Primary hypertension (CMS/HCC) Expected: 2023 (Approximate), Expires: 2024 [facility] Comment on above: Expected: 2023 (Approximate), Expires: 2024 Start: 2023 End: 2023 Patient encounter procedure 2023 10:00 AM EST Office Visit [facility] [address] [place] [id number] Shaikh Galo MD [address] [place] [phone] Arrived [facility] Comment on above: Arrived Start: 12-15-2022 Influenza vaccination Influenza Vacc ine (#1) [facility] Start: 01-26-2021 Pneumococcal Vaccine : 65+ Years (2 - PCV) Pneumococcal Vaccine: 65+ Years (2 - PCV) [facility] Start: 1935 Medicare Annual Well ness (AWV) Medicare Annual Wellness (AWV) [facility] Immunizations Immunization Date Immunization Notes Care Provider [facility] 01-16-2023 influenza virus vacc ine, unspecified formulation Don ZHANG [facility] 01-16-2023 Influenza, High-dose Seasonal, Quadrivalent, Preservative Free Luciana Aichholz TRAVEL COORDINATOR Work Phone: [facility] 01-16-2023 Influenza, Seasonal, Quadrivalent, Adjuvanted Luciana Aichholz TRAVEL COORDINATOR Work Phone: [facility] 01-16-2023 SARS-COV-2 (COVID-19 ) vaccine, mRNA, spike protein, LNP, PF, megha-sucrose, 30 mcg/0.3 mL Luciana Aichholz TRAVEL COORDINATOR Work Phone: [facility] 01-09-2022 influenza virus vacc ine, unspecified formulation Don ZHANG [facility] 01-09-2022 Influenza, High-dose Seasonal, Quadrivalent, Preservative Free Luciana Aichholz TRAVEL COORDINATOR Work Phone: [facility] 01-09-2022 SARS-CoV-2 (COVID-19 ) [id number] Don ZHANG [facility] 03-04-2021 SARS-CoV-2 (COVID-19 ) mRNA BNT-162b2 vax Don ZHANG [facility] 02-23-2021 influenza virus vacc ine, unspecified formulation Don ZHANG [facility] 02-23-2021 Influenza, injectabl e, Madin Shy Canine Kidney, preservative free, quadrivalent Shaikh Clover OROZCO Work Phone: [facility] 06-22-2020 SARS-CoV-2 (COVID-19 ) mRNA-1273 vaccine Don ZHANG [facility] 05-24-2020 SARS-CoV-2 (COVID-19 ) mRNA-1273 vaccine Don ZHANG [facility] 01-27-2020 influenza virus vacc ine, unspecified formulation Don ZHANG [facility] 01-27-2020 influenza, injectabl e, quadrivalent, preservative free Shaikh Clover OROZCO Work Phone: [facility] 01-27-2020 pneumococcal polysaccharide vaccine, 23 valent Don ZHANG [facility] Payers Date Payer Category Payer Private Health Insurance [id number] 2001 Medicare [id number] 1959 Medicare [id number] 1959 Private Health Insurance CLI [id number] Self-pay 1936 Unknown [id number] 2.16.8 [id number] 1936 Unknown [id number] 2.16.84 [id number] 1936 Unknown [id number] 2.16.84 [id number] 1936 Unknown [id number] 2.16.84 [id number] 1936 Unknown [id number] 2.16.84 [id number] 1936 Unknown [id number] 2.16.84 [id number] 1936 Unknown [id number] 2.16.84 [id number] 1936 Unknown [id number] 2.16.84 [id number] 1936 Unknown [id number] 2.16.8 [id number] 1936 Unknown [id number] 2.16.8 40.1.306769.3.579.2.727 1936 Unknown [id number] 2.16.8 [id number] 1936 Unknown [id number] 2.16.8 40.1.132876.3.579.2.727 1936 Unknown [id number] 2.16.84 [id number] 1936 Unknown [id number] 2.16.84 [id number] 1936 Unknown [id number] 2.16.84 [id number] 1936 Unknown [id number] 2.16.84 [id number] Unknown [id number] 2.16.8 [id number] Social History Date Type Detail Facility Start: 03-28-2021 End: 04-04-2023 Tobacco smoking status Ex-smoker (finding) [facility] Start: 04-04-2023 End: 2023 Sex Assigned At Male [facility] Tobacco smoking status Never [facility] Tobacco quit 30 years ag o Tobacco Use:. Stopped age 35 Years. [facility] Tobacco smoking status No Smokin g Status Entered [facility] [employer] Start: 04-16-1957 End: 04-16-1982 History of tobacco use Current smoker [facility] Start: 04-16-1957 End: 04-16-1982 History of tobacco use Cigarette Smoker [facility] Start: 04-04-2023 End: 2023 Cigarettes smoked current (pack per day) - Reported 1.5 [facility] Start: 1935 Sex Assigned At Not on file [facility] Start: 2023 End: 11-21-2023 Alcohol intake Ex-drinker (finding) [facility] Within the last year , have you been afraid of your partner or ex-partner? No [facility] Do you belong to any clubs or organizations such as islam groups, unions, fraternal or athletic groups, or school groups? Yes [facility] Are you now , , , , never or living with a partner? [facility] How often to you hav e a drink containing alcohol? Monthly or less [facility] How often do you hav e 6 or more drinks on 1 occasion? Never [facility] Do you feel stress - tense, restless, nervous, or anxious, or unable to sleep at night because your mind is troubled all the time - these days [OSQ] To some extent [facility] (I/We) worried serenity er (my/our) food would run out before (I/we) got money to buy more. Never true [facility] Start: 2023 Alcohol Comment coffee 2 cups daily [facility] Functional Status Date Assessment Result Facility 08-17-2023 Functional Status N/A [facility] 12-01-2022 Functional Status N/A [facility] 06-02-2022 Functional Status N/A [facility] 12-12-2021 Functional Status N/A [facility] Clinical Notes 12-12-2021 to 08-17-2023 Luciana Nicolas, BETSY - 2023 11:39 AM ESTKatisa Fidencio, TRAVEL COORDINATOR - 2023 11:39 AM ESTLisa Fidencio, TRAVEL COORDINATOR - 2023 11:39 AM ESTLisa Fidencio, TRAVEL COORDINATOR - 2023 11:38 AM EST Note Date & Type Note Facility 08-17-2023 Hospital Discharge instructions Patient Education 08/17/2023 10:01:11 Benign Prostatic Hyperplasia Benign Prostatic Hyperplasia Benign prostatic hyperplasia (BPH) is an enlarged prostate gland that is caused by the normal aging process. The prostate may get bigger as a man gets older. The condition is not caused by cancer. The prostate is a walnut-sized gland that is involved in the production of semen. It is located in front of the rectum and below the bladder. The bladder stores urine. The urethra carries stored urine out of the body. An enlarged prostate can press on the urethra. This can make it harder to pass urine. The buildup of urine in the bladder can cause infection. Back pressure and infection may progress to bladder damage and kidney (renal) failure. What are the causes? This condition is part of the normal aging process. However, not all men develop problems from this condition. If the prostate enlarges away from the urethra, urine flow will not be blocked. If it enlarges toward the urethra and compresses it, there will be problems passing urine. What increases the risk? This condition is more likely to develop in men older than 50 years. What are the signs or symptoms? Symptoms of this condition include: Getting up often during the night to urinate. Needing to urinate frequently during the day. Difficulty starting urine flow. Decrease in size and strength of your urine stream. Leaking (dribbling) after urinating. Inability to pass urine. This needs immediate treatment. Inability to completely empty your bladder. Pain when you pass urine. This is more common if there is also an infection. Urinary tract infection (UTI). How is this diagnosed? This condition is diagnosed based on your medical history, a physical exam, and your symptoms. Tests will also be done, such as: A post-void bladder scan. This measures any amount of urine that may remain in your bladder after you finish urinating. A digital rectal exam. In a rectal exam, your health care provider checks your prostate by putting a lubricated, gloved finger into your rectum to feel the back of your prostate gland. This exam detects the size of your gland and any abnormal lumps or growths. An exam of your urine (urinalysis). A prostate specific antigen (PSA) screening. This is a blood test used to screen for prostate cancer. An ultrasound. This test uses sound waves to electronically produce a picture of your prostate gland. Your health care provider may refer you to a specialist in kidney and prostate diseases (urologist). How is this treated? Once symptoms begin, your health care provider will monitor your condition (active surveillance or watchful waiting). Treatment for this condition will depend on the severity of your condition. Treatment may include: Observation and yearly exams. This may be the only treatment needed if your condition and symptoms are mild. Medicines to relieve your symptoms, including: ?Medicines to shrink the prostate. ?Medicines to relax the muscle of the prostate. Surgery in severe cases. Surgery may include: ?Prostatectomy. In this procedure, the prostate tissue is removed completely through an open incision or with a laparoscope or robotics. ?Transurethral resection of the prostate (TURP). In this procedure, a tool is inserted through the opening at the tip of the penis (urethra). It is used to cut away tissue of the inner core of the prostate. The pieces are removed through the same opening of the penis. This removes the blockage. ?Transurethral incision (TUIP). In this procedure, small cuts are made in the prostate. This lessens the prostate's pressure on the urethra. ?Transurethral microwave thermotherapy (TUMT). This procedure uses microwaves to create heat. The heat destroys and removes a small amount of prostate tissue. ?Transurethral needle ablation (TUNA). This procedure uses radio frequencies to destroy and remove a small amount of prostate tissue. ?Interstitial laser coagulation (ILC). This procedure uses a laser to destroy and remove a small amount of prostate tissue. ?Transurethral electrovaporization (TUVP). This procedure uses electrodes to destroy and remove a small amount of prostate tissue. ?Prostatic urethral lift. This procedure inserts an implant to push the lobes of the prostate away from the urethra. Follow these instructions at home: Take [id number] and prescription medicines only as told by your health care provider. Monitor your symptoms for any changes. Contact your health care provider with any changes. Avoid drinking large amounts of liquid before going to bed or out in public. Avoid or reduce how much caffeine or alcohol you drink. Give yourself time when you urinate. Keep all follow-up visits. This is important. Contact a health care provider if: You have unexplained back pain. Your symptoms do not get better with treatment. You develop side effects from the medicine you are taking. Your urine becomes very dark or has a bad smell. Your lower abdomen becomes distended and you have trouble passing urine. Get help right away if: You have a fever or chills. You suddenly cannot urinate. You feel light-headed or very dizzy, or you faint. There are large amounts of blood or clots in your urine. Your urinary problems become hard to manage. You develop moderate to severe low back or flank pain. The flank is the side of your body between the ribs and the hip. These symptoms may be an emergency. Get help right away. Call 911. Do not wait to see if the symptoms will go away. Do not drive yourself to the hospital. Summary Benign prostatic hyperplasia (BPH) is an enlarged prostate that is caused by the normal aging process. It is not caused by cancer. An enlarged prostate can press on the urethra. This can make it hard to pass urine. This condition is more likely to develop in men older than 50 years. Get help right away if you suddenly cannot urinate. This information is not intended to replace advice given to you by your health care provider. Make sure you discuss any questions you have with your health care provider. Document Revised: 10/19/2021 Document Reviewed: 10/19/2021 [employer] Patient Education 2022 [employer]. Follow Up Care 06/11/2023 11:07:33 With:MILKA OROZCO, Don Gutierrez, URL Address: [address] [place] [address] MELI LUI [address]- When: Unknown [facility] [employer] 2023 History of Present illness Narrative Associated Problem(s): Encounter for subsequent annual wellness visit (AWV) in Medicare patient Reviewed Ht/Wt/BMI Recommend eye exam yearly Recommend dental exams twice a year Balance work/leisure activities Exercises is recommended most days of the week (appropriate as chronic conditions allow) Follow up yearly and prn Would still like to be a full code Associated Problem(s): Benign prostatic hyperplasia Continue with dr zhang Associated Problem(s): Hypertension (CMS/HCC) Takes losartan every other day, no side effects Is under good control Check labs Associated Problem(s): 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 (CMS/HCC) Continue with eliquis, no s/s GI bleeding Cont w cardiology as well Associated Problem(s): Phantom pain (CMS/HCC) Continue with current treatment Images from the original note were not included. Robin Paz is a 88 y.o. male presents with chief complaint of No chief complaint on file. HPI: Here for AWV A fib: continues w cardiology as well as taking eliquis Prostate: follows with Dr zhang, has fu appt next week Does have chronic pain: Phantom Limb pain, Hypertension This is a chronic problem. The current episode started more than 1 year ago. The problem is unchanged. The problem is controlled. Pertinent negatives include no anxiety or shortness of breath. There are no associated agents to hypertension. Risk factors for coronary artery disease include male gender and sedentary lifestyle. Past treatments include angiotensin blockers. The current treatment provides significant improvement. SUBJECTIVE: MEDICATIONS: Current Outpatient Medications Medication Instructions apixaban (Eliquis) 2.5 MG tablet 1 tablet, Oral, 2 times daily cyanocobalamin (Vitamin B-12) 1000 MCG tablet 1 tablet, Oral, Daily RT gabapentin (NEURONTIN) 300 mg, Oral, 2 times daily HYDROcodone-acetaminophen (Dunnellon) 5-325 MG tablet 1 tablet, Oral, 2 times daily PRN losartan (COZAAR) 25 mg, Oral, Every other day, 1 tablet by mouth every other day oxybutynin XL (Ditropan-XL) 5 MG 24 hr tablet 1 tablet, Oral, Nightly tamsulosin (Flomax) 0.4 MG 24 hr capsule 1 capsule, Oral, Daily ALLERGIES: Allergies Allergen Reactions Penicillin G Unknown REVIEW OF SYMPTOMS: Review of Systems Constitutional: Negative for activity change, appetite change and unexpected weight change. HENT: Negative for ear pain, nosebleeds, sneezing, trouble swallowing and voice change. Eyes: Negative for pain, discharge and visual disturbance. Respiratory: Negative for apnea, chest tightness, shortness of breath and wheezing. Cardiovascular: Negative for leg swelling. Gastrointestinal: Negative for abdominal distention, blood in stool, constipation and diarrhea. Genitourinary: Negative for decreased urine volume, difficulty urinating, dysuria and hematuria. Musculoskeletal: Positive for arthralgias and back pain. Skin: Negative for color change. Neurological: Negative for dizziness, tremors and seizures. Psychiatric/Behavioral: Negative for agitation, decreased concentration, hallucinations, self-injury and suicidal ideas. The patient is not nervous/anxious. Hematological: Negative for adenopathy. Does not bruise/bleed easily. Endocrine: Negative for cold intolerance, heat intolerance, polydipsia and polyuria. Allergic/Immunologic: Negative for environmental allergies and food allergies. 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) At low risk for fall Benign prostatic hyperplasia Benign prostatic hypertrophy BPH with urinary obstruction Crohn's colitis (CMS/HCC) Elevated PSA, between 10 and less than 20 ng/ml Hard of hearing Hematuria Hypertension (CMS/HCC) Iron deficiency anemia 08/01/2017 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 (CMS/HCC) 2023 Phantom pain (CMS/HCC) 03/26/2023 Right shoulder pain Vitamin B12 deficiency Past Surgical History: Procedure Laterality Date HERNIA REPAIR OTHER SURGICAL HISTORY Right AKA OTHER SURGICAL HISTORY Right 01/20/2020 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,L5 [facility]/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 done again 03/16/2020 RHIZOTOMY Right 05/25/2020 right theurapeutic rhizotomy sympathetic level of L4 and L5 - Dr Kim/VLADIMIR family history is not on file. OBJECTIVE: Visit Vitals Smoking Status Former Physical Exam Vitals reviewed. Constitutional: Appearance: Normal appearance. HENT: Head: Normocephalic. Right Ear: External ear normal. Left Ear: External ear normal. Nose: Nose normal. Mouth/Throat: Mouth: Mucous membranes are moist. Pharynx: Oropharynx is clear. Eyes: Extraocular Movements: Extraocular movements intact. Conjunctiva/sclera: Conjunctivae normal. Neck: Vascular: No carotid bruit. Cardiovascular: Rate and Rhythm: Normal rate. Rhythm irregular. Pulses: Normal pulses. Heart sounds: Normal heart sounds. Pulmonary: Effort: Pulmonary effort is normal. Breath sounds: Normal breath sounds. Abdominal: General: Bowel sounds are normal. There is no distension. Palpations: Abdomen is soft. There is no mass. Tenderness: There is no abdominal tenderness. There is no guarding or rebound. Hernia: No hernia is present. Musculoskeletal: Cervical back: Neck supple. Left lower leg: No edema. Comments: Prosthesis of Right leg Lymphadenopathy: Cervical: No cervical adenopathy. Skin: General: Skin is warm and dry. Capillary Refill: Capillary refill takes 2 to 3 seconds. Neurological: General: No focal deficit present. Mental Status: He is alert. Psychiatric: Mood and Affect: Mood normal. Behavior: Behavior normal. Thought Content: Thought content normal. Judgment: Judgment normal. ASSESSMENT AND PLAN: No follow-ups on file. Problem List Items Addressed This Visit Phantom pain (CMS/HCC) Continue with current treatment 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 (CMS/HCC) Continue with eliquis, no s/s GI bleeding Cont w cardiology as well Relevant Orders CBC and differential Iron deficiency anemia Relevant Orders CBC and differential Iron level Comprehensive metabolic panel Vitamin D deficiency Relevant Orders Vitamin D 25 hydroxy Comprehensive metabolic panel Hypertension (CMS/HCC) Takes losartan every other day, no side effects Is under good control Check labs Relevant Orders Comprehensive metabolic panel Lipid panel Urinalysis with reflex microscopic (clean catch) Microalbumin / creatinine, urine ratio Benign prostatic hyperplasia Continue with dr zhang Relevant Orders Comprehensive metabolic panel PSA Vitamin B12 deficiency Relevant Orders CBC and differential Vitamin B12 Encounter for subsequent annual wellness visit (AWV) in Medicare patient - Primary Reviewed Ht/Wt/BMI Recommend eye exam yearly Recommend dental exams twice a year Balance work/leisure activities Exercises is recommended most days of the week (appropriate as chronic conditions allow) Follow up yearly and prn documented in this encounter [facility] 03-27-2023 Note [facility] Subjective Robin Paz is a 87 y.o. 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 Denies chest pain, SOB, and bleeding on Eliquis. No recent falls. Doing very well. Patient Active Problem List Diagnosis Atrial fibrillation (CMS/HCC) Crohn's disease of small intestine without complication (CMS/HCC) Hearing loss Hypertensive disorder Iron deficiency anemia Irregular heart rhythm Nuclear senile cataract Phantom limb pain (CMS/HCC) Rheumatoid arthritis (CMS/HCC) Small bowel stricture (CMS/HCC) Fitting and adjustment of prosthetic device Special screening for malignant neoplasms, colon Vitamin D deficiency Family History Problem Relation Name Age of Onset Coronary artery disease Paternal Grandmother Social History Tobacco Use Smoking status: Former Types: Cigarettes Smokeless tobacco: Never Substance Use Topics Alcohol use: Yes Comment: occasional HPI Robin is seen in follow-up. I had seen him last 03/10/2020. His PCP Dr. White had initially referred him for consideration of the watchman procedure. He is a 87-year-old man with a prior history of 1. Hypertension on treatment. 2. 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. He presented in May 2018 to the [facility] with A. fib and RVR. He was initially started on anticoagulation with Xarelto. He did not want to be on that. He is currently on aspirin 81 mg daily. A follow-up Holter monitor showed paroxysmal atrial fibrillation, he was evaluated by Dr. [place] at that time but still he did not want to be on anticoagulation. 3. Normal coronary angiogram by cardiac catheterization in August 2018. At a prior visit I proceeded with evaluation with a transesophageal echocardiogram. He then decided not to proceed with watchman. He was evaluated in cardiology clinic in September 2022 after being evaluated in the emergency room for chest pain. His chest pain was atypical and given his fairly recent coronary angiogram being normal in 2018, no more workup was performed. In addition he was agreeable to starting anticoagulation and was started on Eliquis 2.5 mg twice daily and aspirin was stopped. Today he reports that he has been doing well. He has no chest pain. He has no shortness of breath. He occasionally feels lightheaded. He does not feel palpitations. 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 This leads to his gait being unsteady. Review of Systems Musculoskeletal: Positive for arthritis, back pain and muscle weakness. Neurological: Positive for dizziness. All other systems reviewed and are negative. Objective Visit Vitals BP 126/62 (BP Location: Right arm, Patient Position: Sitting) Pulse 61 Ht 1.829 m (6') Wt 73 kg (161 lb) SpO2 98% BMI 21.84 kg/m??? Smoking Status Former BSA 1.93 m??? Physical Exam Constitutional: Appearance: He is well-developed. He is not ill-appearing. HENT: Head: Normocephalic and atraumatic. Nose: Nose normal. Eyes: General: No scleral icterus. Pupils: Pupils are equal, round, and reactive to light. Neck: Thyroid: No thyromegaly. Vascular: No JVD. Cardiovascular: Rate and Rhythm: Normal rate and regular rhythm. Pulses: Radial pulses are 2+ on the right side and 2+ on the left side. Heart sounds: Normal heart sounds. No murmur heard. No friction rub. No gallop. Pulmonary: Effort: Pulmonary effort is normal. No respiratory distress. Breath sounds: Normal breath sounds. No wheezing or rales. Chest: Chest wall: No tenderness. Abdominal: General: Bowel sounds are normal. There is no distension. Palpations: Abdomen is soft. Tenderness: There is no abdominal tenderness. Musculoskeletal: General: No swelling. Cervical back: Neck supple. Comments: Uses a cane to ambulate S/p right AKA Skin: General: Skin is warm and dry. Neurological: General: No focal deficit present. Mental Status: He is alert and oriented to person, place, and time. Psychiatric: Mood and Affect: Mood normal. Behavior: Behavior is cooperative. Judgment: Judgment normal. Allergies Allergies Allergen Reactions Penicillins Other Turn stools gritty Other reaction(s): Other (See Comments) Turn stools gritty Turn stools gritty Medications Current Outpatient Medications: apixaban (Eliquis) 2.5 mg tablet, Take 1 tablet (2.5 mg) by mouth in the morning and at bedtime. Lower dose so do not cut in half., Disp: 180 tablet, Rfl: 3 ferrous sulfate 325 (65 Fe) MG tablet, Take 65 mg by mouth 3 (three) times a week., Disp: , Rfl: gabapentin (Neurontin) 100 mg capsule, 1 capsule in the morning., Disp: , Rfl: HYDROcodone-acetaminophen (Dunnellon) 5-325 mg tablet, hydrocodone 5 mg-acetaminophen 325 mg tablet, Disp: , Rfl: tamsulosin (Flomax) 0.4 mg 24 hr capsule, tamsulosin 0.4 mg capsule, Disp: , Rfl: cyanocobalami (more content not included)... [facility] 12-01-2022 Hospital Discharge instructions Patient Education 12/01/2022 09:54:31 Benign Prostatic Hyperplasia Benign Prostatic Hyperplasia Benign prostatic hyperplasia (BPH) is an enlarged prostate gland that is caused by the normal aging process. The prostate may get bigger as a man gets older. The condition is not caused by cancer. The prostate is a walnut-sized gland that is involved in the production of semen. It is located in front of the rectum and below the bladder. The bladder stores urine. The urethra carries stored urine out of the body. An enlarged prostate can press on the urethra. This can make it harder to pass urine. The buildup of urine in the bladder can cause infection. Back pressure and infection may progress to bladder damage and kidney (renal) failure. What are the causes? This condition is part of the normal aging process. However, not all men develop problems from this condition. If the prostate enlarges away from the urethra, urine flow will not be blocked. If it enlarges toward the urethra and compresses it, there will be problems passing urine. What increases the risk? This condition is more likely to develop in men older than 50 years. What are the signs or symptoms? Symptoms of this condition include: Getting up often during the night to urinate. Needing to urinate frequently during the day. Difficulty starting urine flow. Decrease in size and strength of your urine stream. Leaking (dribbling) after urinating. Inability to pass urine. This needs immediate treatment. Inability to completely empty your bladder. Pain when you pass urine. This is more common if there is also an infection. Urinary tract infection (UTI). How is this diagnosed? This condition is diagnosed based on your medical history, a physical exam, and your symptoms. Tests will also be done, such as: A post-void bladder scan. This measures any amount of urine that may remain in your bladder after you finish urinating. A digital rectal exam. In a rectal exam, your health care provider checks your prostate by putting a lubricated, gloved finger into your rectum to feel the back of your prostate gland. This exam detects the size of your gland and any abnormal lumps or growths. An exam of your urine (urinalysis). A prostate specific antigen (PSA) screening. This is a blood test used to screen for prostate cancer. An ultrasound. This test uses sound waves to electronically produce a picture of your prostate gland. Your health care provider may refer you to a specialist in kidney and prostate diseases (urologist). How is this treated? Once symptoms begin, your health care provider will monitor your condition (active surveillance or watchful waiting). Treatment for this condition will depend on the severity of your condition. Treatment may include: Observation and yearly exams. This may be the only treatment needed if your condition and symptoms are mild. Medicines to relieve your symptoms, including: ?Medicines to shrink the prostate. ?Medicines to relax the muscle of the prostate. Surgery in severe cases. Surgery may include: ?Prostatectomy. In this procedure, the prostate tissue is removed completely through an open incision or with a laparoscope or robotics. ?Transurethral resection of the prostate (TURP). In this procedure, a tool is inserted through the opening at the tip of the penis (urethra). It is used to cut away tissue of the inner core of the prostate. The pieces are removed through the same opening of the penis. This removes the blockage. ?Transurethral incision (TUIP). In this procedure, small cuts are made in the prostate. This lessens the prostate's pressure on the urethra. ?Transurethral microwave thermotherapy (TUMT). This procedure uses microwaves to create heat. The heat destroys and removes a small amount of prostate tissue. ?Transurethral needle ablation (TUNA). This procedure uses radio frequencies to destroy and remove a small amount of prostate tissue. ?Interstitial laser coagulation (ILC). This procedure uses a laser to destroy and remove a small amount of prostate tissue. ?Transurethral electrovaporization (TUVP). This procedure uses electrodes to destroy and remove a small amount of prostate tissue. ?Prostatic urethral lift. This procedure inserts an implant to push the lobes of the prostate away from the urethra. Follow these instructions at home: Take [id number] and prescription medicines only as told by your health care provider. Monitor your symptoms for any changes. Contact your health care provider with any changes. Avoid drinking large amounts of liquid before going to bed or out in public. Avoid or reduce how much caffeine or alcohol you drink. Give yourself time when you urinate. Keep all follow-up visits. This is important. Contact a health care provider if: You have unexplained back pain. Your symptoms do not get better with treatment. You develop side effects from the medicine you are taking. Your urine becomes very dark or has a bad smell. Your lower abdomen becomes distended and you have trouble passing urine. Get help right away if: You have a fever or chills. You suddenly cannot urinate. You feel light-headed or very dizzy, or you faint. There are large amounts of blood or clots in your urine. Your urinary problems become hard to manage. You develop moderate to severe low back or flank pain. The flank is the side of your body between the ribs and the hip. These symptoms may be an emergency. Get help right away. Call 911. Do not wait to see if the symptoms will go away. Do not drive yourself to the hospital. Summary Benign prostatic hyperplasia (BPH) is an enlarged prostate that is caused by the normal aging process. It is not caused by cancer. An enlarged prostate can press on the urethra. This can make it hard to pass urine. This condition is more likely to develop in men older than 50 years. Get help right away if you suddenly cannot urinate. This information is not intended to replace advice given to you by your health care provider. Make sure you discuss any questions you have with your health care provider. Document Revised: 10/19/2021 Document Reviewed: 10/19/2021 [employer] Patient Education 2022 [employer]. Follow Up Care 06/02/2022 11:46:25 With:MILKA OROZCO, Don Gutierrez, URL Address: [address] [place], [place] [id number]- When: Unknown [facility] [employer] 09-27-2022 Note Review of Systems Neurological: Positive for dizziness. [facility] 09-27-2022 Note Cardiology Clinic No te Subjective Robin Paz is a 87 y.o. year old male patient being seen for Follow-up (Pt is here for Hospital f/u [facility] pt states he was laying in bed and started having chest pains) He developed chest pain when sleeping which awoke him in the middle of the night. Lasted for a couple of hours and resolved with the use of a nitroglycerin use. He has stable dyspnea on exertion. He has recurring dizziness in the morning last for 3 hours. He has lightheadeness and flushed feeling after eating. Has not had recurrence of chest pain since discharge/ Patient Active Problem List Diagnosis Atrial fibrillation (CMS/HCC) Crohn's disease of small intestine without complication (CMS/HCC) Hearing loss Hypertensive disorder Iron deficiency anemia Irregular heart rhythm Nuclear senile cataract Phantom limb pain (CMS/HCC) Rheumatoid arthritis (CMS/HCC) Small bowel stricture (CMS/HCC) Fitting and adjustment of prosthetic device Special screening for malignant neoplasms, colon Vitamin D deficiency Family History Problem Relation Name Age of Onset Coronary artery disease Paternal Grandmother Social History Tobacco Use Smoking status: Former Types: Cigarettes Smokeless tobacco: Never Substance Use Topics Alcohol use: Yes Comment: occasional HPI Update: 06/05/2022 Robin is seen in follow-up. I had seen him last 03/10/2020. His PCP Dr. White had initially referred him for consideration of the watchman procedure. He is a 87-year-old man with a prior history of 1. Hypertension on treatment. 2. 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. He presented in May 2018 to the [facility] with A. fib and RVR. He was initially started on anticoagulation with Xarelto. He did not want to be on that. He is currently on aspirin 81 mg daily. A follow-up Holter monitor showed paroxysmal atrial fibrillation, he was evaluated by Dr. Booth at that time but still he did not want to be on anticoagulation. 3. Normal coronary angiogram by cardiac catheterization in August 2018. At a prior visit I proceeded with evaluation with a transesophageal echocardiogram. He then decided not to proceed with watchman. Today he reports that he has been doing well. He has no chest pain. He has shortness of breath on moderate exertion. He occasionally feels lightheaded. He does not feel palpitations. 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 This leads to his gait being unsteady. Update: 09/27/2022 He presented to the [facility] emergency department on 09/17/2022 for evaluation of chest pain. Reports the chest pain awoke him at night when inspiration, and persisted with resolution after administration of sublingual nitroglycerin at the hospital. He describes pain as sharp nonradiating chest pain. Work-up including high sensitive troponin and ECG were negative. He had an echocardiogram during hospitalization and was recommended outpatient stress test for further evaluation of chest pain. Today he has not had recurrence of chest pain, denies palpitations, or worsening dyspnea on exertion. Review of Systems Cardiovascular: Negative for chest pain, dyspnea on exertion, irregular heartbeat, leg swelling, near-syncope, orthopnea, palpitations, paroxysmal nocturnal dyspnea and syncope. Objective Visit Vitals BP 136/80 (BP Location: Right arm, Patient Position: Sitting) Pulse 55 Wt 74.4 kg (164 lb) SpO2 98% BMI 22.24 kg/m??? Smoking Status Former BSA 1.94 m??? Physical Exam General: Awake, alert, good spirits. NAD Pulm: Breath sounds clear to ascultation bilaterally with no wheeze, crackles or rhonchi Cards: Iregegular rate and rhythm, S1, S2. No S3 or S4 gallop. Murmur: none Abd: Soft, Nontender, physiologic bowel sounds are present Extr: Lower extremity edema: trace LLE. Skin: warm, dry, well perfused Neuro: A&Ox3, No gross deficits Allergies Allergies Allergen Reactions Penicillins Other Turn stools gritty Other reaction(s): Other (See Comments) Turn stools gritty Turn stools gritty Medications Current Outpatient Medications: aspirin 81 mg EC tablet, aspirin 81 mg tablet,delayed release Take 1 tablet twice a week by oral route., Disp: , Rfl: ferrous sulfate 325 (65 Fe) MG tablet, Take 65 mg by mouth 3 (three) times a week., Disp: , Rfl: gabapentin (Neurontin) 100 mg capsule, 1 capsule in the morning., Disp: , Rfl: HYDROcodone-acetaminophen (Dunnellon) 5-325 mg tablet, hydrocodone 5 mg-acetaminophen 325 mg tablet, Disp: , Rfl: losartan (Cozaar) 25 mg tablet, Take 1 tablet (25 mg) by mouth 1 (one) time per week., Disp: 12 tablet, Rfl: 3 tamsulosin (Flomax) 0.4 mg 24 hr capsule, tamsulosin 0.4 mg capsule, Disp: , Rfl: Recent Labs 09/18/2022 WBC 5.4, hemoglobin 9.7, hematocrit 29.6, platelets 236 Sodium 140, potassium 3.6, chloride 105, BUN 14, creatinine 0.85, estimated GFR greater than 60% Imagin (more content not included)... [facility] 06-05-2022 Note [place] [facility] - [facility] Subjective Robin Paz is a 87 y.o. year old male patient being seen for 10 mo follow up PAF and hypertension. Had labs in September 2021. States he's taking losartan about once a week. A couple weeks ago he had some peppermints before bed. Says when he woke up he was very lightheaded for about half the day. states he was very SOB with exertion. This only lasted a day or so per patient. Patient Active Problem List Diagnosis Atrial fibrillation (CMS/HCC) Crohn's disease of small intestine without complication (CMS/HCC) Hearing loss Hypertensive disorder Iron deficiency anemia Irregular heart rhythm Nuclear senile cataract Phantom limb pain (CMS/HCC) Rheumatoid arthritis (CMS/HCC) Small bowel stricture (CMS/HCC) Fitting and adjustment of prosthetic device Special screening for malignant neoplasms, colon Vitamin D deficiency Family History Problem Relation Name Age of Onset Coronary artery disease Paternal Grandmother Social History Tobacco Use Smoking status: Former Types: Cigarettes Smokeless tobacco: Never Substance Use Topics Alcohol use: Yes Comment: occasional HPI Robin is seen in follow-up. I had seen him last 03/10/2020. His PCP Dr. White had initially referred him for consideration of the watchman procedure. He is a 87-year-old man with a prior history of 1. Hypertension on treatment. 2. 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. He presented in May 2018 to the [facility] with A. fib and RVR. He was initially started on anticoagulation with Xarelto. He did not want to be on that. He is currently on aspirin 81 mg daily. A follow-up Holter monitor showed paroxysmal atrial fibrillation, he was evaluated by Dr. Booth at that time but still he did not want to be on anticoagulation. 3. Normal coronary angiogram by cardiac catheterization in August 2018. At a prior visit I proceeded with evaluation with a transesophageal echocardiogram. He then decided not to proceed with watchman. Today he reports that he has been doing well. He has no chest pain. He has shortness of breath on moderate exertion. He occasionally feels lightheaded. He does not feel palpitations. 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 This leads to his gait being unsteady. Review of Systems Cardiovascular: Positive for dyspnea on exertion. Neurological: Positive for light-headedness. All other systems reviewed and are negative. Objective Visit Vitals BP 117/70 (BP Location: Left arm, Patient Position: Sitting) Pulse 79 Ht 1.829 m (6') Wt 75.3 kg (166 lb) SpO2 94% BMI 22.51 kg/m??? Smoking Status Former BSA 1.96 m??? Physical Exam Constitutional: Appearance: He is well-developed. He is not ill-appearing. HENT: Head: Normocephalic and atraumatic. Nose: Nose normal. Eyes: General: No scleral icterus. Pupils: Pupils are equal, round, and reactive to light. Neck: Thyroid: No thyromegaly. Vascular: No JVD. Cardiovascular: Rate and Rhythm: Normal rate and regular rhythm. Pulses: Radial pulses are 2+ on the right side and 2+ on the left side. Heart sounds: Normal heart sounds. No murmur heard. No friction rub. No gallop. Pulmonary: Effort: Pulmonary effort is normal. No respiratory distress. Breath sounds: Normal breath sounds. No wheezing or rales. Chest: Chest wall: No tenderness. Abdominal: General: Bowel sounds are normal. There is no distension. Palpations: Abdomen is soft. Tenderness: There is no abdominal tenderness. Musculoskeletal: General: No swelling. Cervical back: Neck supple. Comments: Uses a cane to ambulate Skin: General: Skin is warm and dry. Neurological: General: No focal deficit present. Mental Status: He is alert and oriented to person, place, and time. Psychiatric: Mood and Affect: Mood normal. Behavior: Behavior is cooperative. Judgment: Judgment normal. Allergies Allergies Allergen Reactions Penicillins Other Turn stools gritty Other reaction(s): Other (See Comments) Turn stools gritty Turn stools gritty Medications Current Outpatient Medications: aspirin 81 mg EC tablet, aspirin 81 mg tablet,delayed release Take 1 tablet twice a week by oral route., Disp: , Rfl: ferrous sulfate 325 (65 Fe) MG tablet, Take 65 mg by mouth 3 (three) times a week., Disp: , Rfl: gabapentin (Neurontin) 100 mg capsule, 1 capsule in the morning., Disp: , Rfl: HYDROcodone-acetaminophen (Dunnellon) 5-325 mg tablet, hydrocodone 5 mg-acetaminophen 325 mg tablet, Disp: , Rfl: losartan (Cozaar) 25 mg tablet, Take 25 mg by mouth every 7 (seven) days., Disp: , Rfl: tamsulosin (Flomax) 0.4 mg 24 hr capsule, tamsulosin 0.4 mg capsule, Disp: , Rfl: Recent Labs No visits with results within 6 Month(s) from this visit. Latest known visit with results is: [facility] Encounter on 03/08/2021 Component Date Value Ventricular Rate (more content not included)... [facility] 06-02-2022 Hospital Discharge instructions Patient Education 06/02/2022 11:41:04 Prostate Cancer Screening Prostate Cancer Screening The prostate is a walnut-sized gland that is located below the bladder and in front of the rectum in males. The function of the prostate (prostate gland) is to add fluid to semen during ejaculation. Prostate cancer is the second most common type of cancer in men. A screening test for cancer is a test that is done before cancer symptoms start. Screening can help to identify cancer at an early stage, when the cancer can be treated more easily. The recommended prostate cancer screening test is a blood test called the prostate-specific antigen (PSA) test. PSA is a protein that is made in the prostate. As you age, your prostate naturally produces more PSA. Abnormally high PSA levels may be caused by: Prostate cancer. An enlarged prostate that is not caused by cancer (benign prostatic hyperplasia, BPH). This condition is very common in older men. A prostate gland infection (prostatitis). Medicines to assist with hair growth, such as finasteride. Depending on the PSA results, you may need more tests, such as: A physical exam to check the size of your prostate gland. Blood and imaging tests. A procedure to remove tissue samples from your prostate gland for testing (biopsy). Who should have screening? Screening recommendations vary based on age. If you are younger than age 40, screening is not recommended. If you are age 40 54 and you have no risk factors, screening is not recommended. If you are younger than age 55, ask your health care provider if you need screening if you have one of these risk factors: ?Being of -[place] descent. ?Having a family history of prostate cancer. If you are age 55 69, talk with your health care provider about your need for screening and how often screening should be done. If you are older than age 70, screening is not recommended. This is because the risks that screening can cause are greater than the benefits that it may provide (risks outweigh the benefits). If you are at high risk for prostate cancer, your health care provider may recommend that you have screenings more often or start screening at a younger age. You may be at high risk if you: Are older than age 55. Are -[place]. Have a father, brother, or uncle who has been diagnosed with prostate cancer. The risk may be higher if your family member's cancer occurred at an early age. What are the benefits of screening? There is a small chance that screening may lower your risk of dying from prostate cancer. The chance is small because prostate cancer is typically a slow-growing cancer, and most men with prostate cancer from a different cause. What are the risks of screening? The main risk of prostate cancer screening is diagnosing and treating prostate cancer that would never have caused any symptoms or problems (overdiagnosis and overtreatment). PSA screening cannot tell you if your PSA is high due to cancer or a different cause. A prostate biopsy is the only procedure to diagnose prostate cancer. Even the results of a biopsy may not tell you if your cancer needs to be treated. Slow-growing prostate cancer may not need any treatment other than monitoring, so diagnosing and treating it may cause unnecessary stress or other side effects. A prostate biopsy may also cause: Infection or fever. A false negative. This is a result that shows that you do not have prostate cancer when you actually do have prostate cancer. Questions to ask your health care provider When should I start prostate cancer screening? What is my risk for prostate cancer? How often do I need screening? What type of screening tests do I need? How do I get my test results? What do my results mean? Do I need treatment? Contact a health care provider if: You have difficulty urinating. You have pain when you urinate or ejaculate. You have blood in your urine or semen. You have pain in your back or in the area of your prostate. You have trouble getting or maintaining an erection (erectile dysfunction, ED). Summary Prostate cancer is a common type of cancer in men. The prostate (prostate gland) is located below the bladder and in front of the rectum. This gland adds fluid to semen during ejaculation. Prostate cancer screening may identify cancer at an early stage, when the cancer can be treated more easily. The prostate-specific antigen (PSA) test is the recommended screening test for prostate cancer. Discuss the risks and benefits of prostate cancer screening with your health care provider. If you are age 70 or older, screening is likely to lead to more risks than benefits (risks outweigh the benefits). This information is not intended to replace advice given to you by your health care provider. Make sure you discuss any questions you have with your health care provider. Document Released: 01/11/2018 Document Revised: 03/15/2018 Document Reviewed: 01/11/2018 [employer] Patient Education 2020 [employer]. Follow Up Care 05/01/2022 08:18:24 With:MILKA OROZCO, Don Gutierrez, URL Address: [address] [place] [address] [place] [address]- When: Unknown [facility] 05-16-2022 Hospital Discharge instructions Patient Education 05/16/2022 11:08:16 [facility] - Transrectal Ultrasound of the Prostate with US guided biopsy Discharge Instructions (CUSTOM) Transrectal Ultrasound of the Prostate with US guided biopsy Even though there are no visible incisions, multiple prostate biopsies have been taken through the rectum and you need to follow some instructions to minimize the risks of bleeding. You may see some blood in your urine and stool for up to 1 week (and blood in the semen for several months) Diet -You may resume your normal diet, but you may want to avoid alcohol, carbonated drinks, caffeine, and spicy foods, which may increase the irritation from the surgery. -Drink plenty of water to keep the urine clear. Activity -You should limit any physical activity for about 48 hours -No heavy lifting or straining (10 pound limit) -No driving a car and limit long car rides for 2 days -No strenuous exercise -No sexual intercourse until this is discussed with your doctor Bowels -Try to keep your bowel movements soft to minimize straining to have a bowel movement. -You may use a stool softener or over the counter laxative if needed -Difficult bowel movement may lead to straining and bleeding from the prostate Medications -You may resume your home medications unless instructed otherwise -Hold aspirin, ibuprofen, Coumadin (warfarin) and other blood thinners for about two days or until there is no active bleeding unless otherwise instructed -Finish the antibiotic which you have already started Things to watch for which would require an Emergency Room visit or call 911: (this is not a complete list) -Persistent or heavy bleeding or blood clots from the rectum or in the urine -Inability to urinate -Fever over 101.5 degrees Fahrenheit, with or without chills -Severe drug reactions with itching, hives or rash -Tenderness or swelling of the calves, chest pain, or shortness of breath Please call the office to arrange for your post-operative appointment in 1-2 weeks [phone] or [phone] Follow Up Care 05/01/2022 08:13:35 With:Don ZHANG Address: [facility] [address] , [place] [address]- Business (1) When: Unknown Comments:Keep scheduled appointment [facility] 12-12-2021 Hospital Discharge instructions Patient Education 12/12/2021 12:10:29 Prostate Cancer Screening Prostate Cancer Screening The prostate is a walnut-sized gland that is located below the bladder and in front of the rectum in males. The function of the prostate (prostate gland) is to add fluid to semen during ejaculation. Prostate cancer is the second most common type of cancer in men. A screening test for cancer is a test that is done before cancer symptoms start. Screening can help to identify cancer at an early stage, when the cancer can be treated more easily. The recommended prostate cancer screening test is a blood test called the prostate-specific antigen (PSA) test. PSA is a protein that is made in the prostate. As you age, your prostate naturally produces more PSA. Abnormally high PSA levels may be caused by: Prostate cancer. An enlarged prostate that is not caused by cancer (benign prostatic hyperplasia, BPH). This condition is very common in older men. A prostate gland infection (prostatitis). Medicines to assist with hair growth, such as finasteride. Depending on the PSA results, you may need more tests, such as: A physical exam to check the size of your prostate gland. Blood and imaging tests. A procedure to remove tissue samples from your prostate gland for testing (biopsy). Who should have screening? Screening recommendations vary based on age. If you are younger than age 40, screening is not recommended. If you are age 40 54 and you have no risk factors, screening is not recommended. If you are younger than age 55, ask your health care provider if you need screening if you have one of these risk factors: ?Being of -[place] descent. ?Having a family history of prostate cancer. If you are age 55 69, talk with your health care provider about your need for screening and how often screening should be done. If you are older than age 70, screening is not recommended. This is because the risks that screening can cause are greater than the benefits that it may provide (risks outweigh the benefits). If you are at high risk for prostate cancer, your health care provider may recommend that you have screenings more often or start screening at a younger age. You may be at high risk if you: Are older than age 55. Are -[place]ian. Have a father, brother, or uncle who has been diagnosed with prostate cancer. The risk may be higher if your family member's cancer occurred at an early age. What are the benefits of screening? There is a small chance that screening may lower your risk of dying from prostate cancer. The chance is small because prostate cancer is typically a slow-growing cancer, and most men with prostate cancer from a different cause. What are the risks of screening? The main risk of prostate cancer screening is diagnosing and treating prostate cancer that would never have caused any symptoms or problems (overdiagnosis and overtreatment). PSA screening cannot tell you if your PSA is high due to cancer or a different cause. A prostate biopsy is the only procedure to diagnose prostate cancer. Even the results of a biopsy may not tell you if your cancer needs to be treated. Slow-growing prostate cancer may not need any treatment other than monitoring, so diagnosing and treating it may cause unnecessary stress or other side effects. A prostate biopsy may also cause: Infection or fever. A false negative. This is a result that shows that you do not have prostate cancer when you actually do have prostate cancer. Questions to ask your health care provider When should I start prostate cancer screening? What is my risk for prostate cancer? How often do I need screening? What type of screening tests do I need? How do I get my test results? What do my results mean? Do I need treatment? Contact a health care provider if: You have difficulty urinating. You have pain when you urinate or ejaculate. You have blood in your urine or semen. You have pain in your back or in the area of your prostate. You have trouble getting or maintaining an erection (erectile dysfunction, ED). Summary Prostate cancer is a common type of cancer in men. The prostate (prostate gland) is located below the bladder and in front of the rectum. This gland adds fluid to semen during ejaculation. Prostate cancer screening may identify cancer at an early stage, when the cancer can be treated more easily. The prostate-specific antigen (PSA) test is the recommended screening test for prostate cancer. Discuss the risks and benefits of prostate cancer screening with your health care provider. If you are age 70 or older, screening is likely to lead to more risks than benefits (risks outweigh the benefits). This information is not intended to replace advice given to you by your health care provider. Make sure you discuss any questions you have with your health care provider. Document Released: 01/11/2018 Document Revised: 03/15/2018 Document Reviewed: 01/11/2018 [employer] Patient Education 2020 [employer]. Follow Up Care 12/10/2020 12:14:36 With:Don ZHANG MD, URL Address: [address] [place] [address]- When:Within 2 Month(s) [facility] Evaluation + Plan note Future Appointments Appointment Date:12/12/2021 11:15:00 AM Scheduled Provider:Don ZHANG MD Location:[facility] Appointment Type:URO Office Visit Diagnostic Tests PendingUroVysion Fish and Urine Cyto ([facility]) 09/16/21 [facility] Evaluation + Plan note Future Appointments Appointment Date:02/13/2022 11:15:00 AM Scheduled Provider:Don ZHANG MD Location:[facility] Appointment Type:URO Office Visit Diagnostic Tests PendingPSA Total 12/29/21 [facility] Evaluation + Plan note Future Appointments Appointment Date:06/02/2022 11:00:00 AM Scheduled Provider:Don ZHANG MD Location:[facility] Appointment Type:URO Office Visit Diagnostic Tests PendingProstate Histology ([facility]) 05/16/22 [facility] Evaluation + Plan note Future Appointments Appointment Date:12/01/2022 08:45:00 AM Scheduled Provider:[facility]HANG MD [facility] Type:URO Office Visit Diagnostic Tests PendingPSA Total 10/14/22 [facility] Evaluation + Plan note Future Appointments Appointment Date:06/11/2023 09:45:00 AM Scheduled Provider:Don ZHANG MD [facility] App[facility] Type:URO Office Visit [facility] Evaluation + Plan note Future Appointments Appointment Date:08/18/2024 10:30:00 AM Scheduled Provider:Don ZHANG MD [facility] App[facility] Type:URO Office Visit [facility] Evaluation note Diagnosis Encounter for subsequent annual wellness visit (AWV) in Medicare patient- Primary Phantom pain (CMS/HCC) Phantom limb (syndrome) Iron deficiency anemia, unspecified iron deficiency anemia type Primary hypertension (CMS/HCC) Unspecified essential hypertension 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 (CMS/HCC) Atrial fibrillation Benign prostatic hyperplasia with lower urinary tract symptoms, symptom details unspecified Vitamin D deficiency Vitamin B12 deficiency Other B-complex deficiencies documented in this encounter [facility] HealthcareEvaluation note* Diagnosis Phantom pain- Primary Phantom limb (syndrome) Encounter for subsequent annual wellness visit (AWV) in Medicare patient- Primary Phantom pain Phantom limb (syndrome) Iron deficiency anemia, unspecified iron deficiency anemia type Primary hypertension (CMS/HCC) Unspecified essential hypertension 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 (CMS/HCC) Atrial fibrillation Benign prostatic hyperplasia with lower urinary tract symptoms, symptom details unspecified Vitamin D deficiency Vitamin B12 deficiency Other B-complex deficiencies Colon cancer screening Special screening for malignant neoplasms, colon Phantom pain- Primary Phantom limb (syndrome) 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 (CMS/HCC) Atrial fibrillation Primary hypertension (CMS/HCC) Unspecified essential hypertension Crohn's disease of small intestine without complication (CMS/HCC) 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) Phantom limb pain (CMS/HCC) Phantom limb (syndrome) Iron deficiency anemia, unspecified iron deficiency anemia type Phantom pain- Primary Phantom limb (syndrome) Iron deficiency anemia, unspecified iron deficiency anemia type 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) Primary hypertension (CMS/HCC) Unspecified essential hypertension 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 (CMS/HCC) Atrial fibrillation Phantom pain- Primary Phantom limb (syndrome) documented in this encounter [facility] HealthcareHospital course Narrative No data available for this section [facility] Discharge instructions No data available for this section [facility] progress note No data available for this section [facility] Summary Purpose Family History No Family History Records FoundNo Family History Records FoundNo Family History Records FoundNo Family History Records Found No data available for this section No Family History Records FoundNo Family History Records Found Advance Directives No Advanced Directives Records FoundNo Advanced Directives Records FoundNo Advanced Directives Records FoundNo Advanced Directives Records FoundNo Advanced Directives Records FoundNo Advanced Directives Records Found Additional Source Comments (unrecognized sect ion and content) No Status Records FoundNo Status Records FoundNo Status Records FoundNo Status Records FoundNo Status Records FoundNo Status Records Found INFORMATION SOURCE (unrecogn ized section and content) DATE CREATED AUTHOR 03/15/2021 [facility] DATE CREATED AUTHOR AUTHOR'S ORGANIZ ATION 04/07/2022 [facility] DATE CREATED AUTHOR AUTHOR'S ORGANIZ ATION 06/24/2022 [facility] DATE CREATED AUTHOR AUTHOR'S ORGANIZ ATION 03/29/2023 [facility] DATE CREATED AUTHOR AUTHOR'S ORGANIZ ATION 08/18/2023 [facility] DATE CREATED AUTHOR AUTHOR'S ORGANIZ ATION 11/23/2023 [facility] EPIC Care Team (unrecognized sect ion and content) [employer] Relationship Specialty Start Date End Date Filipe Polanco MD PCP - General Family Medicine 10/06/22 [employer] Relationship Specialty Start Date End Date Filipe Polanco MD [address] [place] [address] PCP - General Family Medicine 05/23/23 Luciana Nicolas NP [address] [place] [address] Nurse Practitioner Family Medicine 05/23/23 [employer] Relationship Specialty Start Date End Date Filipe Polanco MD [address] [place] [address] PCP - General Family Medicine 05/23/23 Luciana Nicolas NP [address] [place] [id number] Nurse Practitioner [facility] 05/23/23 [employer] Relationship Specialty Start Date End Date Filipe Polanco MD [address] [place] [id number] PCP - General Family Medicine 05/23/23 Luciana Nicolas NP [address] [place] [id number] Nurse Practitioner [facility] 05/23/23 FOR RECORDS PERTAINING TO PATIENTS WHO ARE OR HAVE BEEN ENROLLED IN A CHEMICAL DEPENDENCY/SUBSTANCEABUSE PROGRAM, SOME INFORMATION MAY BE OMITTED. This clinical summary was aggregated from multiple sources. Caution should be exercised in using it in the provision of clinical care. This summary normalizes information from multiple sources, and as a consequence, information in this document may materially change the coding, format and clinical context of patient data. In addition, data may be omitted in some cases. CLINICAL DECISIONS SHOULD BE BASED ON THE PRIMARY CLINICAL RECORDS. [employer] [facility] provides no warranty or guarantee of the accuracy or completeness of information in this document.
== END 2024-02-27 07:55 | disposition home or self-care (01) ==
LOC: CARD 07:54
PROVIDERS: PCP Nurse Practitioner; Visit Provider Internal Medicine Interventional Cardiology
DX: I71.21 Aneurysm of the ascending aorta, without rupture (principal)
CPT/HCPCS: 93306

== ENCOUNTER 2024-05-28 12:02 | Outpatient (OUT) | payer MEDICARE, SELFPAY ==
--- OUTSIDE RECORDS SUMMARY | 2024-05-28 12:22 | XMS_ITS | CCD ---
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 Home [employer] Name Role Phone LITO CARDENASMatt JANA Referring Unavailable LITO JENNIFER NANCYALEA Primary Care Unavailable UNKNOWN, PROVIDER Attending Unavailable UNKNOWN, PROVIDER Admitting Unavailable Irvin White Primary Care Physician LUCIANA NICOLAS Primary Care Physician [phone] Wesley Diaz Primary Care Unavailable Joy Zhang Attending Unavailable Joy Zhang Admitting Unavailable MOUKABROOKLYNN, DR PIERSON Admitting Unavailable MOUKARBEL, DR PIERSON Attending Unavailable AICHHOLZ, PARKING PATROLLER LUCIANA Primary Care Unavailable MOUKARBTOSHIA, DR PIERSON Consulting Unavailable AICHHOLZ, PARKING PATROLLER LUCIANA Primary Care Unavailable CASTRO REYES Admitting Unavailable KATH ., CASTRO Attending Unavailable KATH ., CASTRO Consulting Unavailable MEGAN, MONSTER Admitting Unavailable MONSTER GUZMAN Attending Unavailable IRVIN WHITE Primary Care Unavailable AICHHOLZ, PARKING PATROLLER LUCIANA Admitting Unavailable AICHHOLZ, PARKING PATROLLER LUCIANA Attending Unavailable AICHHOLZ, PARKING PATROLLER LUCIANA Primary Care Unavailable DEJUAN GUZMANINDA Admitting Unavailable MONSTER GUZMAN Attending Unavailable AICHHOLZ, PARKING PATROLLER LUCIANA Primary Care Unavailable MEGAN, MONSTER Consulting Unavailable AICHHOLZ, PARKING PATROLLER LUCIANA Admitting Unavailable AICHHOLZ, PARKING PATROLLER LUCIANA Attending Unavailable AICHHOLZ, PARKING PATROLLER LUCIANA Primary Care Unavailable AICHHOLZ, PARKING PATROLLER LUCIANA Consulting Unavailable DR JOY LUNA Admitting Unavailable MILKA Reid, DR [place] Attending Unavailable AICHHOLZ, PARKING PATROLLER LUCIANA Primary Care Unavailable DR JOY LUNA Consulting Unavailable Sherri OROZCO, Filipe Primary Care Provider Sherri OROZCO, Filipe Primary Care Provider Fidencio PET SITTER, Luciana Unavailable Joy ZHANG Attending Unavailable Joy ZHANG Attending Unavailable Jyo ZHANG Attending Unavailable Joy ZHANG Attending Unavailable Fidencio PET SITTER, Luciana Unavailable DANGELO JAEGER Attending Unavailable FIDENCIO, LUCIANA Attending Unavailable FIDENCIO, LUCIANA Attending Unavailable AICMIRIAM, LUCIANA Attending Unavailable FADY FOX Attending Unavailable FIDENCIO, LUCIANA Referring Unavailable FIDENCIO, LUCIANA Attending Unavailable Allergies Allergy Classification Reported Allergen(s) Allergy Type Date of Onset Reaction(s) Facility (11 sources) Penicillins; Translations: [penicillins] Drug allergy (disorder) 3 Unknown (qualifier value) [facility] Repository (7 sources) Dicloxacillin; Translations: [dicloxacillin] Drug Allergy 6 Other (qualifier value) [facility] (1 source) Unable to Assess Drug allergy (disorder) 2 [facility] Repository (4 sources) Penicillin G Drug Allergy 3 Unknown [facility] (8 sources) Penicillins Drug Intolerance 3 Other [facility] Medications Current Medications Medication Drug Class(es) Dates Sig (Normalized) Sig (Original) acetaminophen 325 mg / HYDROcodone bitartrate 5 mg oral tablet (14 sources) Opioid Agonist Start: 05-13-2024 End: 06-12-2024 take 1 tablet by mouth once HYDROcodone-aceta minophen (Dunellen) 5-325 MG tablet Indications: Phantom pain Take 1 tablet by mouth every 12 (twelve) hours if needed for severe pain 60 tablet 05/13/2024 06/12/2024 Active Start: 03-17-2024 End: 04-16-2024 take 1 tablet by mouth once HYDROcodone-acetaminophen (Dunellen) 5-325 MG tablet Indications: Phantom pain Take 1 tablet by mouth every 12 (twelve) hours if needed for severe pain 60 tablet 03/17/2024 04/16/2024 Active Start: 01-29-2024 End: 02-28-2024 take 1 tablet by mouth once HYDROcodone-acetaminophen (Dunellen) 5-325 MG tablet Indications: Phantom pain Take 1 tablet by mouth every 12 (twelve) hours if needed for severe pain 60 tablet 01/29/2024 02/28/2024 Active Start: 11-21-2023 End: 01-17-2024 take 1 tablet by mouth once HYDROcodone-acetaminophen (Dunellen) 5-325 MG tablet Indications: Phantom pain Take 1 tablet by mouth every 12 (twelve) hours if needed for severe pain 60 tablet 12/18/2023 01/17/2024 Active Start: 05-16-2023 End: 06-15-2023 take 1 tablet by mouth twice daily as needed for pain HYDROcodone-acetaminophen (Dunellen) 5-325 MG tablet Indications: Phantom pain (CMS/HCC) Take 1 tablet by mouth 2 (two) times a day as needed for severe pain 60 tablet 0 05/16/2023 06/15/2023 Active Start: 05-01-2022 Dunellen 325 mg-7 .5 mg oral tablet 1 tab(s), Oral, Once, 1 tab(s), Refill(s) 0, Take 1 hour prior to procedure. Don't drive or operate machinery while taking this medication., [facility] [id number], 185, cm, 02/13/22 11:34:00 EDT, Height/Length Dosing, 74.8, kg, 02/13/22 11:34:00 E... Start Date: 05/01/22 Status: Ordered apixaban 2.5 mg oral tablet (13 sources) Factor Xa Inhibitor Start: 10-30-2022 take 1 tablet by mouth in the morning apixaban (Eliquis) 2.5 MG tablet Take 1 tablet by mouth in the morning and 1 tablet in the evening. 10/30/2022 Active Aspirin (4 sources) Platelet Aggregation Inhibitor, Nonsteroidal Anti-inflammatory Drug Start: 09-24-2019 aspirin Start Date: 09/24/19 Status: Ordered ciprofloxacin 250 mg oral tablet (2 sources) Quinolone Antimicrobial Start: 12-12-2021 take 1 tablet by mouth twice daily Cipro 250 mg Tab 250 mg = 1 tab(s), Oral, BID, # 42 tab(s), Refills(s) 0, Pharmacy: [facility] [id number], 185, cm, 12/12/21 12:02:00 EDT, Height/Length Dosing, [...] Ordered ferrous sulfate 325 mg oral tablet (2 sources) Start: 11-21-2023 End: 02-19-2024 take 1 tablet by mouth at mealtime ferrous sulfate 325 (65 Fe) MG tablet Indications: Iron deficiency anemia, unspecified iron deficiency anemia type Take 1 tablet (325 mg) by mouth in the morning. Take with meals. 90 tablet 1 11/21/2023 02/19/2024 Active gabapentin 300 mg oral capsule (19 sources) Anti-epilepti c Agent Start: 03-26-2023 End: 04-28-2024 take 1 capsule by mouth in the morning gabapentin (Neurontin) 300 MG capsule Indications: Phantom pain Take 1 capsule (300 mg) by mouth in the morning and 1 capsule (300 mg) before bedtime. 180 capsule 1 01/29/2024 Active Start: 03-28-2021 take 1 mg by mouth t hree times daily gabapentin 100 mg Cap mg cap(s), Oral, TID, Refills(s) 0 Start Date: 03/28/21 Status: Ordered HYDROcodone (2 sources) Opioid Agonist Start: 03-28-2021 [...] Ordered losartan potassium 25 mg oral tablet (18 sources) Angiotensin 2 Receptor Getachew Start: 03-16-2023 End: 03-26-2024 take 1 tablet by mouth every other day losartan (Cozaar) 25 MG tablet Take 25 mg by mouth every other day 1 tablet by mouth every other day 03/16/2023 Active Start: 03-16-2023 End: 03-26-2024 take 1 [...] Bedtime, # 30 tab(s), Refills(s) 11, Pharmacy: [facility] [id number], 185, cm, 12/12/21 12:02:00 EDT, Height/Length Dosing, 74.8, kg, 12/12/21 12:02:00 EDT, Weight Dosing Start Date: 12/12/21 Status: Ordered tamsulosin hydrochloride 0.4 mg oral capsule (18 sources) alpha-Adrenergic Getachew Start: 01-22-2023 take 1 capsule by mouth twice daily tamsulosin 0.4 mg Cap 0.4 mg = 1 cap(s), Oral, BID, # 180 cap(s), Refills(s) 3, Pharmacy: [facility], 185, cm, 12/01/22 9:15:00 EDT, Height/Length Dosing, 74.6, kg, 12/01/22 9:15:00 EDT, Weight Dosing Start Date: 01/22/23 Status: Ordered Start: 01-20-2022 take 1 capsule by [facility] twice daily tamsulosin 0.4 mg Cap 0.4 mg = 1 cap(s), Oral, BID, # 180 cap(s), Refills(s) 3, Pharmacy: [facility] 185, cm, 12/12/21 12:02:00 EDT, Height/Length Dosing, 74.8, kg, 12/12/21 12:02:00 EDT, Weight Dosing Start Date: 01/20/22 Status: Ordered Start: 12-10-2020 take 1 capsule by [facility] twice daily tamsulosin 0.4 mg Cap 0.4 mg = 1 cap(s), Oral, BID, # 180 cap(s), Refills(s) 3, Pharmacy: [facility], 185, cm, 12/10/20 11:18:00 EDT, Height/Length Dosing, 75.4, kg, 12/10/20 11:18:00 EDT, Weight Dosing Start Date: 12/10/20 Status: Ordered take 1 capsule by [facility] every twenty-four hours in the morning tamsulosin (Flomax) 0.4 MG 24 hr capsule Take 1 capsule by mouth in the morning. Active Vitamin B1 (1 source) Start: 03-28-2021 Vitamin B1 Akila ly, Refills(s) 0 Start Date: 03/28/21 Status: Ordered vitamin B12 (14 sources) Vitamin B12 Start: 12-01-2022 Vitamin B-12 R efills(s) 0 Start Date: 12/01/22 Status: Ordered take 1 tablet by mouth in the mo rning cyanocobalamin (Vitamin B-12) 1000 MCG tablet Take 1 tablet by mouth in the morning. Active Completed/Discontinued Medications Medication Drug Class(es) Dates Sig (Normalized) Sig (Original) doxycycline hyclate 100 mg oral capsule (1 source) Tetracycline-clas s Drug Start: 03-28-2021 take 1 capsule by mouth once daily doxycycline hyclate 100 mg Cap 100 mg = 1 cap(s), Oral, Daily, Take 1 pill the day before the procedure and 1 pill after the procedure, # 2 cap(s), Refills(s) 0, Pharmacy: [facility], 185, cm, 03/28/21 13:13:00 EST, Height/Length Dosing, 75.4, kg, 03/28/21 13:13:00 EST, We... Start Date: 03/28/21 Status: Ordered fluticasone 0.05 mg/inh Nasal Pierce (4 sources) Start: 02-13-2022 take 1 spray(s) nasal route once daily fluticasone 0.05 mg/inh Nasal Pierce Refill(s) 0, 16 gm, SPRAY 1 SPRAY INTO EACH NOSTRIL EVERY DAY Start Date: 02/13/22 Status: Ordered Problems Active Problems Problem Classification Problem Date Documented Date Episodic/Chronic Aortic; peripheral; and visceral artery aneurysms (9 sources) Thoracic aortic ectasia; Translations: [Aneurysm of ascending aorta] Onset: 06-22-2022 02-27-2024 Chronic Cardiac dysrhythmias (20 sources) 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; Translations: [Unspecified atrial fibrillation] Onset: 02-11-2016 Resolved: 11-21-2023 Chronic Essential hypertension (20 sources) Hypertensive disorder; Translations: [Essential (primary) hypertension] Onset: 02-02-2021 Resolved: 2023 09-24-2019 Chronic Genitourinary symptoms and ill-defined conditions (20 sources) Blood in urine; Translations: [Gross hematuria] Onset: 09-16-2021 Episodic Hyperplasia of prostate (20 sources) Benign prostatic hypertrophy with outflow obstruction; Translations: [Benign prostatic hyperplasia with lower urinary tract symptoms] Onset: 09-19-2021 09-24-2019 Chronic Nutritional deficiencies (13 sources) Vitamin D deficiency; Translations: [Vitamin D deficiency, unspecified] Onset: 05-25-2016 2023 Chronic Open wounds of extremities (10 sources) Amputated right lower limb above knee; Translations: [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, initial encounter] Onset: 08-20-2023 08-20-2023 Chronic Osteoarthritis (6 sources) Arthritis 09-24-2019 Chronic Other ear and sense organ disorders (11 sources) Hearing loss; Translations: [Unspecified hearing loss, unspecified ear] Onset: 05-24-2016 2023 Chronic Other injuries and conditions due to external causes (2 sources) History of falling; Translations: [History of falling] Onset: 03-31-2024 Episodic Other lower respiratory disease (1 source) Shortness of breath; Translations: [SHORTNESS OF BREATH] Onset: 06-22-2022 Episodic Other nervous system disorders (20 sources) Phantom pain; Translations: [Phantom limb syndrome with pain] Onset: 03-26-2023 03-26-2023 Chronic Other nervous system disorders (2 sources) Unsteadiness on feet; Translations: [Unsteadiness on feet] Onset: 03-31-2024 Episodic Pulmonary heart disease (8 sources) Pulmonary hypertension; Translations: [Pulmonary hypertension, unspecified] Onset: 02-27-2024 02-27-2024 Chronic Regional enteritis and ulcerative colitis (20 sources) Crohn's disease; Translations: [Crohn's disease of small intestine] Onset: 02-23-2017 09-24-2019 Chronic Residual codes; unclassified (10 sources) H/O: anticoagulant therapy; Translations: [Personal history of other drug therapy] Onset: 03-31-2024 12-08-2019 Episodic Unclassified (1 source) CONTACT W/AND (SUSP) EXPOS COVID-19; Translations: [CONTACT W/AND (SUSP) EXPOS COVID-19] Onset: 09-19-2021 Unclassified (1 source) Aneurysm of the ascending aorta, without rupture; Translations: [Aneurysm of the ascending aorta, without rupture] Onset: 03-31-2024 Past or Other Problems Problem Classification Problem Date Documented Da te Episodic/Chronic Deficiency and other anemia (13 sources) Iron deficiency anemia; Translations: [Iron deficiency anemia, unspecified] Onset: 08-01-2017 2023 Episodic Mood disorders (11 sources) Mood disorders Onset: 2023 2023 Nutritional deficiencies (14 sources) Deficiency of other specified B group vitamins; Translations: [Cobalamin deficiency] Onset: 10-19-2021 2023 Episodic Open wounds of extremities (11 sources) Amputated left lower limb above knee; Translations: [Complete traumatic amputation at level between left hip and knee, initial encounter] Onset: 2023 Resolved: 08-20-2023 2023 Chronic Other aftercare (1 source) Other mcfp (current) drug therapy; Translations: [OTH HEAD OF LOSS PREVENTION CURRENT DRUG THERAPY] Onset: 09-19-2021 Episodic Other nervous system disorders (11 sources) Phantom limb syndrome with pain; Translations: [Phantom limb syndrome with pain] Onset: 02-06-2019 Resolved: 08-20-2023 2023 Chronic Other non-epithelial cancer of skin (20 sources) Basal cell carcinoma of back; Translations: [...] fitting of prostheses; and adjustment of devices (11 sources) Follow-up status; Translations: [Encounter for fitting and adjustment of unspecified external prosthetic device] Onset: 05-24-2016 2023 Episodic Screening and history of mental health and substance abuse codes (1 source) Personal history of nicotine dependence; Translations: [PERSONAL HISTORY OF NICOTINE DEPEND] Onset: 09-19-2021 Episodic Unclassified (1 source) Aneurysm of the ascending aorta, without rupture; Translations: [Aneurysm of the ascending aorta, without rupture] Onset: 03-31-2024 Results Test Name Value Interpretation Reference Range Facility Office Visiton 03-31-2024 Follow-up visit [id number] Vivien Paz 1935 M Date Provider Department Center 03/31/2024 DANGELO KINSEY [facility] Family History Problem Relation Age of Onset Coronary artery disease Paternal Grandmother Family Status - Relation Status Age at Paternal Grandmother Level of Service:99373 ME OFFICE/OUTPATIENT ESTABLISHED MOD MDM [address] [facility] Ambulatory Visit Summaryon 0 08-17-2023 Ambulatory Visit Summary ROBIN PAZ :1935 Visit Date:08/17/2023 Ambulatory Visit Instructions Your Diagnosis BPH with urinary obstruction Gross hematuria Your Care Team Attending Physician - MILKA OROZCO, Joy Gutierrez Primary Care Physician - LUCIANA NICOLAS CNP This Is Your Medications List tamsulosin (tamsulosin 0.4 mg Cap) Contact prescribing physician if questions or concerns apixaban (Eliquis 2.5 mg oral tablet) carbonyl iron (Iron Chews) cyanocobalamin (Vitamin B-12) fluticasone nasal (fluticasone 0.05 mg/inh Nasal Pierce) gabapentin (gabapentin 100 mg Cap) losartan (losartan [...] What to do next Scheduled Follow-Up Appointments Sunday. 2024 10:30 AM EDT With: MILKA OROZCO, Joy Gutierrez Where: [facility] Patient Educationon 08-17-19 24 Patient Education Urology Benign Prostatic Hyperplasia Benign [...] Follow these instructions at home: ? Take ufix-fnb-qppsfys and prescription medicines only as told by [...] the medicine (more content not included)... 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 Medications Eliquis 2.5 mg oral tablet fluticasone 0.05 mg/inh Nasal Pierce gabapentin 100 mg Cap, Oral, TID Iron [...] virus vaccine, inactivated 01/09/2022 Recorded SARS-CoV-2 (COVID-19) [id number] 01/09/2022 Recorded SARS-CoV-2 (COVID-19) mRNA BNT-162b2 vax 03/04/2021 Recorded influenza virus vaccine, inactivated 02/23/2021 Recorded SARS-CoV-2 (COVID-19) mRNA-1273 vaccine 06/22/2020 Recorded SARS-CoV-2 (COVID-19) mRNA-1273 vaccine 05/24/2020 Recorded pneumococcal 23-valent vaccine 01/27/2020 Recorded influenza virus vaccine, inactivated 01/27/2020 Rec (more content not included)... Normal [facility] Comment on above: Result Comment: Elec tronically Signed By: Joy ZHANG MD\.br\Date and Time Signed: 08/17/23 10:03 [...] keep your urine pale yellow. ? Take yimp-lhw-qzuyden or prescription medicines. ? Eat foods that are high in fiber, such as beans, whole grains, and fresh fruits and vegetables. ? Limit foods that are high in fat and processed sugars, such as fried or sweet foods. General instructions ? Take qlkl-otz-thpnvxe and prescription medicines only as told by [...] muscles that help control urination. ? Take kbie-omo-ckdgprq and prescription medicines only as told by your health care provider. ? Contact a health care provider if your symptoms do not improve or get worse. This information is not intended to replace advice given to you by your health care provider. Make sure you discuss any questions you have with your health care provider. Document Revised: 11/05/2020 Document Reviewed: 11/05/2020 [employer] Patient Education ? 2022 [employer] Normal [facility] Office/Clinic Noteon 06-11-2023 Urology Office/Clinic Note [...] ER 10 mg qd. Rx sent to [facility]. Discussed the medication side effects, and the [...] Follow-up With When Contact Information MILKA OROZCO, Joy Gutierrez, URL [facility] [address], [place] [address] [phone] Additional Instructions: 3 mos w/ PVR (new med) Patient Education Urinary Frequency, Adult I, Kristie Squires, personally scribed for Dr. Zhang on 06/11/2023 11:04:35. . Documentation recorded by the scribe, Kristie Squires, accurately reflects the services(s) I performed and decisions made by me. Authenticated by Dr. Zhang on 06/11/2023 11:06:06. Problem List/Past Medical History Ongoing Arthritis BPH with urinary obstruction Crohn's disease Elevated PSA Gross hematuria Hematuria, microscopic Hx of mcfp use of blood thinners Hypertension Nocturia Weak urine stream Historical No qualifying data Procedure/Surgical History Transrectal needle biopsy of prostate (05/16/2022), TURP - Transurethral resection of prostate (08/19/2015), Urodynamics (07/28/2015), Transurethral resection of prostate (11/30/2009), Transurethral resection of prostate (09/07/2009), Amputation of leg, Colonoscopy, Hernia repair. Medications Eliquis 2.5 mg oral tablet fluticasone 0.05 mg/inh Nasal Pierce gabapentin 100 mg Cap, Oral, TID Iron [...] 02/23/2021 Recorded SARS-CoV (more content not included)... [facility] Comment on above: Result Comment: Elec tronically Signed By: Joy ZHANG MD\.br\Date and Time Signed: 06/11/23 11:06 EST\.br\Electronically Co-Signed By: Kristie Squires\.br\Date and Time Co-Signed: 06/11/23 11:05 EST Lab Reportson 06-09-2023 Lab Reports [id number] IFF [facility] TBH UA (CLEAN/CATCH) MICROSC OPIC IF INDICATEon [...] [facility] PROTEIN URINE Negative NEG/TRACE mg/dL [facility] SPECIFIC GRAVITY URINE 1.015 1.005 - 1.025 [facility] URINE MICROSCOPIC INDICATED YES [facility] UROBILINOGEN URINE 0.2 EU/dL 0.2 - 1.0 EU/dL [facility] Ambulatory Visit Summaryon 0 12-01-2022 Ambulatory Visit Summary ROBIN PAZ :1935 Visit Date:12/01/2022 Ambulatory Visit Instructions Your Diagnosis BPH with urinary obstruction Elevated PSA Gross hematuria Tests Performed Urnls Dip Stick Auto w/o Microscopy POC [id number] Your Care Team Attending Physician - Joy ZHANG MD Primary Care Physician - LUCIANA NICOLAS CNP This Is Your Medications List oxybutynin (oxybutynin 5 mg ER Tab) tamsulosin (tamsulosin 0.4 mg Cap) Contact prescribing physician if questions or concerns carbonyl iron (Iron Chews) cyanocobalamin (Vitamin B-12) fluticasone nasal (fluticasone 0.05 mg/inh Nasal Pierce) gabapentin (gabapentin 100 mg Cap) losartan (losartan [...] Follow-Up Appointments Sunday 9:45 AM EST With: Joy ZHANG MD Where: [facility] Patient Educationon 12-02-19 Patient Education Urology Benign [...] Follow these instructions at home: ? Take quqh-euu-esyxwii and prescription medicines only as told by [...] the medicine (more content not included)... Normal [facility] Office/Clinic Noteon 12-01-2022 Urology Office/Clinic Note [...] Follow-up With When Contact Information MILKA OROZCO, Joy Gutierrez, URL [address] [place] [address]- Additional Instructions: 6 months Patient Education Benign Prostatic Hyperplasia ILatanya, personally scribed for Dr. Zhang on 12/01/2022 10:01:10. . Documentation recorded by the scribe, Latanya Rios, accurately reflects the services(s) I performed and decisions made by me. Authenticated by Dr. Zhang on 12/01/2022 10:07:00. Problem List/Past Medical History Ongoing Arthritis BPH with urinary obstruction Crohn's disease Elevated PSA Gross hematuria Hematuria, microscopic Hx of mcfp use of blood thinners Hypertension Nocturia Weak urine stream Historical No qualifying data Procedure/Surgical History Transrectal needle biopsy of prostate (05/16/2022), TURP - Transurethral resection of prostate (08/19/2015), Urodynamics (07/28/2015), Transurethral resection of prostate (11/30/2009), Transurethral resection of prostate (09/07/2009), Amputation of leg, Colonoscopy, Hernia repair. Medications fluticasone 0.05 mg/inh Nasal Pierce gabapentin 100 mg Cap, Oral, TID Iron Chews, Oral, Daily losartan 25 mg Tab, Oral, (more content not included)... Normal [facility] Comment on above: Result Comment: Elec tronically Signed By: Joy ZHANG MD\.br\Date and Time Signed: 12/01/22 10:07 EDT\.br\Electronically Co-Signed By: Latanya Rios.br\Date and Time Co-Signed: 12/01/22 10:02 EDT ECHOCARDIO M/2D COMPLETEon 0 06-21-2022 ECHOCARDIO M/2D COMPLETE Patient: ROBIN PAZ Exam Date: 06/21/2022 : 1935 Gender:M Ordering : DR DANGELO JAEGER M.D. Admission #: [id number] Family : JAYLON NICOLAS [facility] Order #: [id number] CLICK HERE TO VIEW EXAM ECHOCARDIOGRAM REPORT [...] Jaeger M.D. on 06/22/2022 at 13:32 Normal [facility] ISTAT XRay CREon 03-22-2022 Creatinine [Mass/Vol] 0.8 mg/dL Normal 0.6-1.3 [facility] Comment on above: Result Comment: ER/E SD physician is notified/shown all ISTAT results. Critical values may be confirmed by laboratory testing if deemed necessary by ER attending doctor. Performed By: #### I SCRE #### [address] Point of Care testing , ISTAT GFR ( > [address] [facility] Comment on above: Result Comment: GFR estimated reference range: According to KDOQI guidelines, <60 ml/min/1.73m2 is sufficient to diagnose a patient with chronic kidney disease. PERFORMED BY: [place] [address] PATHOLOGIST MEDICAL ADVISOR DORINDA FISHER M.D. Performed By: #### I SCRE #### [address] Point of Care testing , ISTAT GFR (Non- Am > [address] [facility] Comment on above: Performed By: #### I SCRE #### [address] Point of Care testing , MR prostate wo/w conon 03-22 MR prostate wo/w con [facility] [place] [address] [place] [address] MRI Report Signed Patient: Robin Paz MR#: [id number] : 1935 Acct:[id number] Age/Sex: 86 / M ADM Date: 03/22/22 Loc: MR Room: Type: [facility] Attending Dr: Joy Zhang MD Copies to: Joy Zhang MD Ordering Provider: Joy Zhang MD Date of Service: 03/22/22 MR/MR [...] Chahal Jr., D.OFranklin03/22/2022 12:41 PM Dictation Location: [facility] Transcribed By: [facility] 03/22/22 1241 Dictated By: Shahbaz Chahal Jr, DO 03/22/22 1228 Signed By: 03/22/22 1241 [facility] CBC AUTO DIFFon 10-13-2021 BASO # 0.1 103/ul Normal 0.0-0.1 [facility] Comment on above: Performed By: #### C BC #### [facility] [address] [place] [address] Dr. Jose Saenz Basophils/100 WBC (Bld) 0.8 % Normal 0.2-2.0 [facility] Comment on above: Performed By: #### C BC #### [facility] [address] [place] [address] Dr. Jose Saenz EO # 0.4 103/ul Normal 0.0-0.7 [facility] Comment on above: Performed By: #### C BC #### [facility] [address] [place] [address] Dr. Jose Saenz Eosinophils/100 WBC (Bld) 5.8 % Normal 0.9-7.0 [facility] Comment on above: Performed By: #### C BC #### [facility] [address] [place] [address] Dr. Jose Saenz Erythrocyte distribution width (RBC) [Ratio] 13.2 % Normal 11.0-15.0 [facility] Comment on above: Performed By: #### C BC #### [facility] [address] [place] [address] Dr. Jose Saenz Hematocrit (Bld) [Volume fraction] 33.3 % Critically low 42.0-54.0 [facility] Comment on above: Performed By: #### C BC #### [facility] [address] [place] [address] Dr. Jose Saenz Hemoglobin (Bld) [Mass/Vol] 10.6 g/dL Critically low 14.0-18.0 [facility] Comment on above: Performed By: #### C BC #### [facility] [address] [place] [address] Dr. Jose Saenz IG # 0.03 10e3/ul Normal 0.00-0.03 [facility] Comment on above: Performed By: #### C BC #### [facility] [address] [place] [address] Dr. Jose Saenz IG % 0.4 % Normal 0.0-0.5 [facility] Comment on above: Performed By: #### C BC #### [facility] [address] [address] [address] Jose Saenz LYMPH # 1.4 103/ul Normal 1.2-3.8 [facility] Comment on above: Performed By: #### C BC #### [facility] [address] [address] [address] Jose Saenz Lymphocytes/100 WBC (Bld) 18.9 % Critically low 20.5-60.0 [facility] Comment on above: Performed By: #### C BC #### [facility] [address] [place] [address] Dr. Jose Saenz MANUAL DIFF REQ NO Normal [facility] Comment on above: Performed By: #### C BC #### [facility] [address] [place] [address] Dr. Jose Saenz MCH (RBC) [Entitic mass] 29.2 pg Normal 25.9-34.0 [facility] Comment on above: Performed By: #### C BC #### [facility] [address] [place] [address] Dr. Jose Saenz MCHC (RBC) [Mass/Vol] 31.8 g/dL Normal 29.9-35.2 [facility] Comment on above: Performed By: #### C BC #### [facility] [address] [place] [address] Dr. Jose Saenz MCV (RBC) [Entitic vol] 91.7 fL Normal 80.0-94.0 [facility] Comment on above: Performed By: #### C BC #### [facility] [address] [place] [address] Dr. Jose Saenz MONO # 0.6 103/ul Normal 0.3-0.8 [facility] Comment on above: Performed By: #### C BC #### [facility] [address] [place] [address] Dr. Jose Saenz Monocytes/100 WBC (Bld) 8.8 % Normal 1.7-12.0 [facility] Comment on above: Performed By: #### C BC #### [facility] [address] [address] [address] Jose Sanez NEUT # 4.7 103/ul Normal 1.4-6.5 [facility] Comment on above: Performed By: #### C BC #### [facility] [address] [place] [address] Dr. Jose Saenz Neutrophils/100 WBC (Bld) 65.3 % Normal 43.0-75.0 [facility] Comment on above: Performed By: #### C BC #### [facility] [address] [place] [address] Dr. Jose Saenz Platelet mean volume (Bld) [Entitic vol] 11.2 fL Normal 9.5-13.5 [facility] Comment on above: Performed By: #### C BC #### [facility] [address] [place] [address] Dr. Jose Saenz PLT 276 103/ul Normal 150-450 [facility] Comment on above: Performed By: #### C BC #### [facility] [address] [place] [address] Dr. Jose Saenz RBC 3.63 106/ul Critically low 4.70-6.10 [facility] Comment on above: Performed By: #### C BC #### [facility] [address] [place] [address] Dr. Jose Saenz WBC 7.2 103/ul Normal 4.0-11.0 [facility] Comment on above: Performed By: #### C BC #### [facility] [address] [place] [address] Dr. Jose Saenz PROF 14(COMP METB)on 022 Albumin [Mass/Vol] 3.3 g/dL Critically low 3.4-5.0 [facility] Comment on above: Performed By: #### C MP #### [facility] [address] [place] [address] Dr. Jose Saenz Albumin/Globulin [Mass ratio] 0.9 {ratio} Normal [facility] Comment on above: Performed By: #### C MP #### [facility] [address] [address] [address] Jose Saenz ALP [Catalytic activity/Vol] 72 U/L Normal 46-116 [facility] Comment on above: Performed By: #### C MP #### [facility] [address] [place] [address] Dr. Jose Saenz ALT [Catalytic activity/Vol] 28 U/L Normal 16-63 [facility] Comment on above: Performed By: #### C MP #### [facility] [address] [address] [address] Jose Saenz Anion gap [Moles/Vol] 10.0 mmol/L Normal [facility] Comment on above: Performed By: #### C MP #### [facility] [address] [place] [address] Dr. Jose Saenz AST [Catalytic activity/Vol] 21 U/L Normal 15-37 [facility] Comment on above: Performed By: #### C MP #### [facility] [address] [place] [address] Dr. Jose Saenz Bilirubin [Mass/Vol] 0.4 mg/dL Normal 0.2-1.0 [facility] Comment on above: Performed By: #### C MP #### [facility] [address] [place] [address] Dr. Jose Saenz Calcium [Mass/Vol] 8.8 mg/dL Normal 8.5-10.1 [facility] Comment on above: Performed By: #### C MP #### [facility] [address] [place] [address] Dr. Jose Saenz Chloride [Moles/Vol] 102 mmol/L Normal 98-107 [facility] Comment on above: Performed By: #### C MP #### [facility] [address] [place] [address] Dr. Jose Saenz CO2 [Moles/Vol] 32.0 mmol/L Normal 21.0-32.0 [facility] Comment on above: Performed By: #### C MP #### [facility] [address] [place] [address] Dr. Jose Saenz Creatinine [Mass/Vol] 0.82 mg/dL Normal 0.70-1.30 [facility] Comment on above: Performed By: #### C MP #### [facility] [address] [address] [address] Jose Saenz EGFR-AF ETHIOPIAN >60 Normal >=60 [facility] Comment on above: Performed By: #### C MP #### [facility] [address] [address] [address] Jose Saenz EGFR-NON AF ETHIOPIAN >60 Normal >=60 [facility] Comment on above: Performed By: #### C MP #### [facility] [address] [address] [address] Jose Saenz Globulin (S) [Mass/Vol] 3.7 g/dL Normal [facility] Comment on above: Performed By: #### C MP #### [facility] [address] [place] [address] Dr. Jose Saenz Glucose [Mass/Vol] 86 mg/dL Normal 74-106 [facility] Comment on above: Performed By: #### C MP #### [facility] [address] [address] [address] Jose Saenz Potassium [Moles/Vol] 5.0 mmol/L Normal 3.5-5.1 [facility] Comment on above: Performed By: #### C MP #### [facility] [address] [place] [address] Dr. Jose Saenz Protein [Mass/Vol] 7.0 g/dL Normal 6.4-8.2 [facility] Comment on above: Performed By: #### C MP #### [facility] [address] [address] [address] Jose Saenz Sodium [Moles/Vol] 139 mmol/L Normal 136-145 [facility] Comment on above: Performed By: #### C MP #### [facility] [address] [address] [address] Jose Saenz Urea nitrogen [Mass/Vol] 11.0 mg/dL Normal 7.0-18.0 [facility] Comment on above: Performed By: #### C MP #### [facility] [address] [address] [address] Jose Saenz Urea nitrogen/Creatinine [Mass ratio] 13.4 mg/mg Normal [facility] Comment on above: Performed By: #### C MP #### [facility] [address] [address] [address] Jose Saenz UA RANDOM W/MICROSCOPICon BACTERIA TRACE Abnormal NONE SEEN [facility] Comment on above: Performed By: #### U AMIC ####[facility] [address] [address]Dr. Jose Saenz Bilirubin Ql (U) Negative Normal NEGATIVE [facility] Comment on above: Performed By: #### U AMIC ####[facility] [address] [address]Dr. Jose Saenz CAST NONE SEEN Normal NONE SEEN [facility] Comment on above: Performed By: #### U AMIC ####[facility] [address] [place], [place] [address]Dr. Jose Saenz Clarity (U) CLEAR Normal CLEAR [facility] Comment on above: Performed By: #### U AMIC ####[facility] [address] [place], [place] [address]Dr. Jose Saenz Color (U) LT. YELLOW Normal YELLOW [facility] Comment on above: Performed By: #### U AMIC ####[facility] [address] [address]Dr. Jose Saenz Crystals LM Nom (Urine sed) NONE SEEN Normal NONE SEEN [facility] Comment on above: Performed By: #### U AMIC ####[facility] [address] [address]Dr. Jose Saenz Epithelial cells LM Ql (Urine sed) RARE Normal NONE SEEN /RARE [facility] Comment on above: Performed By: #### U AMIC ####[facility] [address] [address]Dr. Jose Saenz Glucose Ql (U) Negative Normal NEGATIVE [facility] Comment on above: Performed By: #### U AMIC ####[facility] [address] [address]Dr. Jose Saenz Hemoglobin Ql (U) Negative Normal NEGATIVE The [facility] Comment on above: Performed By: #### U AMIC ####[facility] [address] [address]Dr. Jose Saenz Ketones Ql (U) Negative Normal NEGATIVE [facility] Comment on above: Performed By: #### U AMIC ####[facility] [address] [place], [place] [address]Dr. Jose Saenz LEUKOCYTES Negative Normal NEGATIVE [facility] Comment on above: Performed By: #### U AMIC ####[facility] [address] [place], [place] [address]Dr. Jose Saenz MUCOUS NONE SEEN Normal NONE SEEN [facility] Comment on above: Performed By: #### U AMIC ####[facility] [address] [place], [place] [address]Dr. Jose Saenz Nitrite Ql (U) Negative Normal NEGATIVE [facility] Comment on above: Performed By: #### U AMIC ####[facility] [address] [place], [place] [address]Dr. Jose Saenz pH (U) 6.5 [pH] Normal 5-9 [facility] Comment on above: Performed By: #### U AMIC ####[facility] [address] [place], [place] [address]Dr. Jose Saenz RBC NONE SEEN Abnormal 0-2 [facility] Comment on above: Performed By: #### U AMIC ####[facility] [address] [place], [place] [address]Dr. Jose Saenz SPEC GRAVITY <=1.005 Abnormal 1.005-<=1.025 The [facility] Comment on above: Performed By: #### U AMIC ####[facility] [address] [place], [place] [address]Dr. Jose Saenz UA PROTEIN Negative Normal NEGATIVE/ TRACE [facility] Comment on above: Performed By: #### U AMIC ####[facility] [address] [id number] Saenz Urobilinogen Qn (U) 0.2 {Sammy'U}/dL Normal 0.2 - 1. 0 [facility] Comment on above: Performed By: #### U AMIC ####[facility] [address] [place], [place] [address]VeFranklin Saenz WBC NONE SEEN Normal NONE SEEN [facility] Comment on above: Performed By: #### U AMIC ####[facility] [address] [place], [place] [address]AqFranklin Saenz VITAMIN B12on 10-13-2021 Cobalamin (Vitamin B12) [Mass/Vol] 405.0 pg/mL Normal 193.0-986.0 [facility] Comment on above: Performed By: #### V ITB12, PSASC #### [facility] [address] [place], [place] [address] Dr. Jose Saenz Covid-19 PCR (CVDTBH)on SARS-CoV-2 (COVID-19) RNA DANIKA+probe Ql (Unsp spec) Not detected Normal NOT DETECTED [facility] Comment on above: Result Comment: When diagnostic [...] for this test is supported by the [employer] [place] of [employer] and Human Service's declaration that [...] be used). Performed By: #### C VDTBH ####[facility] [address] [phone] Saenz GROUP A STREP CULTUREon S. pyogenes Ag Ql (Unsp spec) Culture Observations: NEGATIVE FOR GROUP A STREPTOCOCCUS. Normal [facility] Comment on above: Performed By: #### G RASTCJessica, SSCRN #### [facility] [address] [address] [address] Jose Saenz STREPT SCREENon 09-17-2021 STREP SCREEN A Negative Normal NEGATIVE [facility] Comment on above: Performed By: #### G RASTCX, SSCRN #### [facility] [address] [address] [address] Jose Saenz CBC AUTO DIFFon 07-26-2021 BASO # 0.1 103/ul Normal 0.0-0.1 [facility] Comment on above: Performed By: #### C BC ####[facility] [address] [address]DrFranklin Saenz Basophils/100 WBC (Bld) 1.1 % Normal 0.2-2.0 [facility] Comment on above: Performed By: #### C BC ####[facility] [address] [address]DrFranklin Saenz EO # 0.3 103/ul Normal 0.0-0.7 [facility] Comment on above: Performed By: #### C BC ####[facility] [address] [address]Dr. Jose Saenz Eosinophils/100 WBC (Bld) 5.3 % Normal 0.9-7.0 [facility] Comment on above: Performed By: #### C BC ####[facility] [address] [address]DrFranklin Saenz Erythrocyte distribution width (RBC) [Ratio] 13.5 % Normal 11.0-15.0 [facility] Comment on above: Performed By: #### C BC ####[facility] [address] [address]DrFranklin Saenz Hematocrit (Bld) [Volume fraction] 33.9 % Critically low 42.0-54.0 [facility] Comment on above: Performed By: #### C BC ####[facility] [address] [address]Dr. Jose Saenz Hemoglobin (Bld) [Mass/Vol] 11.1 g/dL Critically low 14.0-18.0 [facility] Comment on above: Performed By: #### C BC ####[facility] [address] [address]Dr. Jose Saenz IG # 0.02 10e3/ul Normal 0.00-0.03 [facility] Comment on above: Performed By: #### C BC ####[facility] [address] [place], [place] [address]Dr. Jose Saenz IG % 0.4 % Normal 0.0-0.5 [facility] Comment on above: Performed By: #### C BC ####[facility] [address] [place], [place] [address]Dr. Jose Saenz LYMPH # 1.5 103/ul Normal 1.2-3.8 [facility] Comment on above: Performed By: #### C BC ####[facility] [address] [place], [place] [address]Dr. Jose Saenz Lymphocytes/100 WBC (Bld) 28.5 % Normal 20.5-60.0 [facility] Comment on above: Performed By: #### C BC ####[facility] [address] [place], [place] [address]Dr. Jose Saenz MANUAL DIFF REQ NO Normal [facility] Comment on above: Performed By: #### C BC ####[facility] [address] [place], [place] [address]Dr. Jose Saenz MCH (RBC) [Entitic mass] 29.7 pg Normal 25.9-34.0 [facility] Comment on above: Performed By: #### C BC ####[facility] [address] [place], [place] [address]Dr. Jose Saenz MCHC (RBC) [Mass/Vol] 32.7 g/dL Normal 29.9-35.2 [facility] Comment on above: Performed By: #### C BC ####[facility] [address] [phone]. Jose Saenz MCV (RBC) [Entitic vol] 90.6 fL Normal 80.0-94.0 [facility] Comment on above: Performed By: #### C BC ####[facility] [address] [phone]. Jose Saenz MONO # 0.4 103/ul Normal 0.3-0.8 [facility] Comment on above: Performed By: #### C BC ####[facility] [address] [phone]. Jose Dany Monocytes/100 WBC (Bld) 7.2 % Normal 1.7-12.0 [facility] Comment on above: Performed By: #### C BC ####[facility] [address] [place], [place] [address]Dr. Jose Saenz NEUT # 3.0 103/ul Normal 1.4-6.5 [facility] Comment on above: Performed By: #### C BC ####[facility] [address] [phone]. Jose Dany Neutrophils/100 WBC (Bld) 57.5 % Normal 43.0-75.0 [facility] Comment on above: Performed By: #### C BC ####[facility] [address] [phone]. Jose Dany Platelet mean volume (Bld) [Entitic vol] 9.8 fL Normal 9.5-13.5 [facility] Comment on above: Performed By: #### C BC ####[facility] [address] [phone]. Jose Dany PLT 276 103/ul Normal 150-450 [facility] Comment on above: Performed By: #### C BC ####[facility] [address] [phone]. Jose Saenz RBC 3.74 106/ul Critically low 4.70-6.10 [facility] Comment on above: Performed By: #### C BC ####[facility] [address] [phone] Saenz WBC 5.3 103/ul Normal 4.0-11.0 [facility] Comment on above: Performed By: #### C BC ####[facility] [address] [phone] Saenz GLYCOHEMOGLOBIN A1Con 2021 ADA RECOMMENDATION ADA THERAPEUTIC TARG ET 6.0 - 7.0 ACTION SUGGESTED > 7.0 Normal [facility] Comment on above: Performed By: #### A 1C #### [facility] [address] [address] [address] Jose Saenz Glucose [Mass/Vol] 120 mg/dL Normal [facility] Comment on above: Performed By: #### A 1C #### [facility] [address] [address] [address] Jose Saenz HbA1c (Bld) [Mass fraction] 5.8 % Normal <=6.0 [facility] Comment on above: Performed By: #### A 1C #### [facility] [address] [address] [address] Jose Saenz LIPID PROFILEon 07-26-2021 CHOL-HDL RATIO NORM SEE BELOW Normal [facility] Comment on above: Result Comment: 3.3 - 4.4 LOW RISK 4.4 - 7.1 AVERAGE RISK 7.1 - 11.0 MODERATE RISK >11.0 HIGH RISK Performed By: #### C MP, TSH, LIPID ####[facility] [address] [phone] Saenz Cholesterol [Mass/Vol] 177 mg/dL Normal <=200 [facility] Comment on above: Performed By: #### C MP, TSH, LIPID ####[facility] [address] [phone]. Jose Saenz Cholesterol in HDL [Mass/Vol] 63 mg/dL Critically high 40-60 [facility] Comment on above: Performed By: #### C MP, TSH, LIPID ####[facility] [address] [phone]. Jose Saenz Cholesterol in LDL [Mass/Vol] 93.8 mg/dL Normal [facility] Comment on above: Performed By: #### C MP, TSH, LIPID ####[facility] [address] [phone]. Jose Saenz Cholesterol.total/C holesterol in HDL [Mass ratio] 2.8 {ratio} Normal [facility] Comment on above: Performed By: #### C MP, TSH, LIPID ####[facility] [address] [phone]. Jose Saenz HDL NORMAL > or = 60 mg/dl - LO W CARDIOVASCULAR RISK <40 mg/dl - HIGH CARDIOVASCULAR RISK Normal [facility] Comment on above: Performed By: #### C MP, TSH, LIPID ####[facility] [address] [address]Dr. Jose Saenz LDL CALC NORMAL SEE BELOW Normal [facility] Comment on above: Result Comment: <100 mg/dl OPTIMAL 100 - 129 mg/dl NEAR OR ABOVE OPTIMAL 130 - 159 mg/dl BORDERLINE HIGH 160 - 189 mg/dl HIGH >190 mg/dl VERY HIGH Performed By: #### C MP, TSH, LIPID ####[facility] [address] [address]Dr. Jose Saenz Triglyceride [Mass/Vol] 101 mg/dL Normal <=150 [facility] Comment on above: Performed By: #### C MP, TSH, LIPID ####[facility] [address] [phone]. Jose Saenz VLDL CALC 20.2 mg/dL Normal [facility] Comment on above: Performed By: #### C MP, TSH, LIPID ####[facility] [address] [address]Dr. Jose Saenz PROF 14(COMP METB)on 022 Albumin [Mass/Vol] 3.3 g/dL Critically low 3.4-5.0 Th e [facility] Comment on above: Performed By: #### C MP, TSH, LIPID ####[facility] [address] [phone]. Silvanaamisha Saenz Albumin/Globulin [Mass ratio] 1.0 {ratio} Normal [facility] Comment on above: Performed By: #### C MP, TSH, LIPID ####[facility] [address] [phone]. Silvanaamisha Saenz ALP [Catalytic activity/Vol] 80 U/L Normal 46-116 [facility] Comment on above: Performed By: #### C MP, TSH, LIPID ####[facility] [address] [address]Dr. Silvanaamisha Saenz ALT [Catalytic activity/Vol] 22 U/L Normal 16-63 [facility] Comment on above: Performed By: #### C MP, TSH, LIPID ####[facility] [address] [address]Dr. Jose Saenz Anion gap [Moles/Vol] 10.1 mmol/L Normal [facility] Comment on above: Performed By: #### C MP, TSH, LIPID ####[facility] [address] [address]Dr. Silvanaamisha Saenz AST [Catalytic activity/Vol] 19 U/L Normal 15-37 [facility] Comment on above: Performed By: #### C MP, TSH, LIPID ####[facility] [id number] [place] [id number]. Jose Saenz Bilirubin [Mass/Vol] 0.5 mg/dL Normal 0.2-1.3 [facility] Comment on above: Performed By: #### C MP, TSH, LIPID ####[facility] [address] [place] [phone]. Jose Saenz Calcium [Mass/Vol] 8.3 mg/dL Critically low 8.5-10.1 [facility] Comment on above: Performed By: #### C MP, TSH, LIPID ####[facility] [address] [place] [phone]. Jose Saenz Chloride [Moles/Vol] 104 mmol/L Normal 98-107 [facility] Comment on above: Performed By: #### C MP, TSH, LIPID ####[facility] [address]ireupjei[address] [place] [phone]. Jose Saenz CO2 [Moles/Vol] 31.5 mmol/L Critically high 22.0-30.0 [facility] Comment on above: Performed By: #### C MP, TSH, LIPID ####[facility] [id number] [place] [phone]. Jose Saenz Creatinine [Mass/Vol] 0.77 mg/dL Normal 0.66-1.25 [facility] Comment on above: Performed By: #### C MP, TSH, LIPID ####[facility] [address] [place] [phone]. Jose Saenz EGFR-AF ETHIOPIAN >60 Normal >=60 [facility] Comment on above: Performed By: #### C MP, TSH, LIPID ####[facility] [address]okqm[address] [place] [phone]. Jose Saenz EGFR-NON AF ETHIOPIAN >60 Normal >=60 [facility] Comment on above: Performed By: #### C MP, TSH, LIPID ####[facility] [address]kl[address] [place] [phone]. Jose Saenz Globulin (S) [Mass/Vol] 3.2 g/dL Normal [facility] Comment on above: Performed By: #### C MP, TSH, LIPID ####[facility] [address]rh[address] [place] [phone]. Jose Saenz Glucose [Mass/Vol] 87 mg/dL Normal 74-106 [facility] Comment on above: Performed By: #### C MP, TSH, LIPID ####[facility] [address]hr[address] [place] [phone]. Jose Saenz Potassium [Moles/Vol] 4.6 mmol/L Normal 3.4-5.0 [facility] Comment on above: Performed By: #### C MP, TSH, LIPID ####[facility] Tsffxzxhip[address] [place] [phone]. Jose Saenz Protein [Mass/Vol] 6.5 g/dL Normal 6.1-8.2 [facility] Comment on above: Performed By: #### C MP, TSH, LIPID ####[facility] [address] [place] [address]Dr. Jose Saenz Sodium [Moles/Vol] 141 mmol/L Normal 137-145 [facility] Comment on above: Performed By: #### C MP, TSH, LIPID ####[facility] [address] [place] [address]Dr. Jose Saenz Urea nitrogen [Mass/Vol] 9.0 mg/dL Normal 7.0-18.0 [facility] Comment on above: Performed By: #### C MP, TSH, LIPID ####[facility] [address] [place] [address]Dr. Jose Saenz Urea nitrogen/Creatinine [Mass ratio] 11.7 mg/mg Normal [facility] Comment on above: Performed By: #### C MP, TSH, LIPID ####[facility] Kyf[address]qz[address] [place] [address]DrFranklin Saenz TSHon 07-26-2021 TSH 2.304 uIU/mL Normal 0.470-4.680 [facility] Comment on above: Performed By: #### C MP, TSH, LIPID #### [facility] [address] [address] [address] Jose Saenz TSH RANGE SEE BELOW Normal [facility] Comment on above: Result Comment: <0.3 4 UIU/ml HYPERTHYROID 0.34-5.60 UIU/ml EUTHYROID >5.60 UIU/ml HYPOTHYROID Performed By: #### C MP, TSH, LIPID #### [facility] [address] [address] [address] Jose Saenz BASIC METABOLIC PANELon 02-15 Calcium [Mass/Vol] 8.7 mg/dL Normal 8.6-10.3 [facility] Comment on above: Performed By: #### 0 [id number] #### [facility] [address] [facility] [place] [address], [facility] Chloride [Moles/Vol] 104 mmol/L Normal 98-[address] [facility] Comment on above: Performed By: #### 0 [id number] #### [facility] [address] [place] [address], [facility] CO2 [Moles/Vol] 29 mmol/L Normal 21-31 [facility] Comment on above: Performed By: #### 0 0071 #### [facility] [address] [place] [address], [facility] Creatinine [Mass/Vol] 0.69 mg/dL Low 0.70-1.[address] [facility] Comment on above: Performed By: #### 0 0071 #### [facility] [address] [place] [address], [place] GFR/1.73 sq M.predicted among blacks MDRD (S/P/Bld) [Vol rate/Area] mL/min/{1.73_m2} Normal >[address] [facility] Comment on above: Result Comment: Calc ulation may not be valid for patients over 70 years Performed By: #### 0 0071 #### [facility] [address] [place] [address], [place] GFR/1.73 sq M.predicted among non-blacks MDRD (S/P/Bld) [Vol rate/Area] mL/min/{1.73_m2} Normal >[address] [facility] Comment on above: Result Comment: Calc ulation may not be valid for patients over 70 years Performed By: #### 0 [id number] #### [facility] [address] [place] [address], [place] Glucose [Mass/Vol] 97 mg/dL Normal 70-100 [facility] Comment on above: Performed By: #### 0 0071 #### [facility] [address] [place] [address], [place] Potassium [Moles/Vol] 4.0 mmol/L Normal 3.5-5.[address] [facility] Comment on above: Performed By: #### 0 0071 #### [facility] [address] [place] [address], [facility] Sodium [Moles/Vol] 139 mmol/L Normal 136-145 [facility] Comment on above: Performed By: #### 0 0071 #### [facility] [address] [place] [address], [facility] Urea nitrogen [Mass/Vol] 10 mg/dL Normal 7-[address] [facility] Comment on above: Performed By: #### 0 [id number] #### [facility] [address] [place] [id number], [facility] CBC COMPLETE BLOOD COUNTon 05-08-2020 Erythrocyte distribution width (RBC) [Ratio] 13.2 % Normal 11.5-15.[address] [facility] Comment on above: Performed By: #### 5 [id number] #### [facility] [address] [place] [address], [facility] Hematocrit (Bld) [Volume fraction] 34.6 % Low 39.0-50.[address] [facility] Comment on above: Performed By: #### 5 [id number] #### [facility] [address] [place] [address], [facility] Hemoglobin (Bld) [Mass/Vol] 11.4 g/dL Low 13.0-17.[address] [facility] Comment on above: Performed By: #### 5 [id number] #### [facility] [address] [place] [address], [facility] MCH (RBC) [Entitic mass] 29.8 pg Normal 27.0-33.[address] [facility] Comment on above: Performed By: #### 5 [id number] #### [facility] [address] [place] [address], [facility] MCHC (RBC) [Mass/Vol] 32.9 g/dL Normal 32.0-35.[address] [facility] Comment on above: Performed By: #### 5 [id number] #### [facility] [address] [place] [address], [facility] MCV (RBC) [Entitic vol] 90.3 fL Normal 82.0-98.[address] [facility] Comment on above: Performed By: #### 5 [id number] #### [facility] [address] [place] [address], [facility] Nucleated RBC/100 WBC (Bld) [Ratio] 0 % Normal 0-[address] [facility] Comment on above: Performed By: #### [id number] #### [facility] [address] [facility] [place] [place] [address], [facility] PLAT CNT 310 10*3/uL Normal 150-400 [facility] Comment on above: Performed By: #### 5 [id number] #### [facility] [address] [place] [address], [facility] RBC (Bld) [#/Vol] 3.83 10*6/uL Low 4.20-5.70 [facility] Comment on above: Performed By: #### 5 [id number] #### [facility] [address] [facility] [place] [address], [facility] WBC (Bld) [#/Vol] 6.55 10*3/uL Normal 4.00-10.60 [facility] Comment on above: Performed By: #### 5 [id number] #### [facility] [address] [facility]. [address] TYPE AND CROSSMATCHon 2020 ABO INTERPRETATION A Normal [facility] Comment on above: Performed By: #### 6 [id number] #### [facility] [address] [place] [address], [facility] RH INTERPRETATION Positive Normal [facility] Comment on above: Performed By: #### 6 [id number] #### [facility] [address] Vital Signs Date Time Vital Sign Value Performing Clinician Facility 04-01-2024 13:26-0500 Body height 182.9 cm Luciana Gonzalezcaryl PET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 Basal cell carcinoma of back Benign prostatic hyperplasia Crohn's disease (CMS/HCC) Elevated PSA, between 10 and less than 20 ng/ml Gross hematuria History of basal cell carcinoma of skin 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 I had seen him last 03/10/2020. His PCP Dr. White had initially referred him for consideration of the watchman procedure. He is a 88-year-old man with a prior history of 1. Hypertension on treatment. 2. 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. He presented in May 2018 to the [facility] with A. fib and RVR. He was [...] angiogram by cardiac catheterization in August 2018. 4. Ascending aortic aneurysm, being monitored by serial echocardiography. 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 This leads to his gait being unsteady. At a prior visit I proceeded with evaluation with a transesophageal echocardiogram. He then decided not to proceed with LAAO. He was evaluated in cardiology clinic in September 2022 after being evaluated in the emergency room for chest pain. His chest pain was atypical and given his fairly recent coronary angiogram being normal in 2019, no more workup was performed. In addition he was agreeable to starting anticoagulation and was started on Eliquis 2.5 mg twice daily and aspirin was stopped. Today he reports that he has been doing well. He has no chest pain. He has no shortness of breath. He occasionally feels lightheaded. He does not feel palpitations. Review of Systems Musculoskeletal: Positive for arthritis, back pain, muscle weakness and myalgias. Neurological: Positive for dizziness and weakness. All other systems reviewed and are negative. Objective Visit Vitals BP 118/64 (BP Location: Right arm, Patient Position: Sitting) Pulse 61 Ht 1.829 m (6') Wt 72.1 kg (159 lb) SpO2 98% BMI 21.56 kg/m??? Smoking Status Former BSA 1.91 m??? Physical Exam Constitutional: Appearance: He is [...] stools gritty Other reaction(s): Other (See Comments) (more content not included)... [facility] 03-17-2024 Telephone encounter Note Pt does need a fu appt. With getting pain meds, he does need to be seen every 3 months, he has cancelled a couple appts in February. I am sure with his 's medical it has been difficult, but please schedule him in [place] [facility] 03-17-2024 Miscellaneous Notes Pt does need a fu appt. With getting pain meds, he does need to be seen every 3 months, he has cancelled a couple appts in February. I am sure with his 's medical it has been difficult, but please schedule him in [place] documented in this encounter [facility] 08-17-2023 Hospital Discharge instructions Patient Education 08/17/2023 [...] urethra. Follow these instructions at home: Take [id number] and prescription medicines only as told by [...] provider. Document Revised: 10/19/2021 Document Reviewed: 10/19/2021 [employer] Patient Education 2022 [employer] Follow Up Care 06/11/2023 11:07:33 With:MILKA OROZCO, Joy Gutierrez, URL Address: [address] [place] [address] [place] [address]- When: Unknown 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 Follow these instructions at home: Take ohkr-czy-kzycsmj and prescription medicines only as told by [...] provider. Document Revised: 10/19/2021 Document Reviewed: 10/19/2021 Elsevier Patient Education 2022 [employer]. Follow Up Care 06/02/2022 11:46:25 With:MILKA OROZCO, Joy Gutierrez, URL Address: [address] [place] [phone]- When: Unknown [facility] 06-02-2022 Hospital Discharge instructions Patient Education [...] one of these risk factors: ?Being of -[place] descent. ?Having a family history of prostate [...] you: Are older than age 55. Are -[place]. Have a father, brother, or uncle who [...] 01/11/2018 Document Revised: 03/15/2018 Document Reviewed: 01/11/2018 [employer] Patient Education 2020 [employer]. Follow Up Care 05/01/2022 08:18:24 With:MILKA OROZCO, Joy Gutierrez, URL Address: [address] [place] [phone]- When: Unknown [facility] [place] 05-16-2022 Hospital Discharge instructions Patient Education 05/16/2022 [...] for your post-operative appointment in 1-2 weeks [phone] or [phone] Follow Up Care 05/01/2022 08:13:35 With:Joy ZHANG Address: [facility] [address] [place] [address]- Business (1) When: Unknown Comments:Keep scheduled appointment [facility] 12-12-2021 Hospital Discharge instructions Patient Education 12/12/2021 [...] one of these risk factors: ?Being of -[place] descent. ?Having a family history of prostate [...] you: Are older than age 55. Are -[place]. Have a father, brother, or uncle who [...] 01/11/2018 Document Revised: 03/15/2018 Document Reviewed: 01/11/2018 [employer] Patient Education 2020 [employer]. Follow Up Care 12/10/2020 12:14:36 With:Joy ZHANG MD, URL Address: [address] [place] [address] [place] [address]- When:Within 2 Month(s) [facility] Evaluation + Plan note Future Appointments Appointment Date:12/12/2021 11:15:00 AM Scheduled Provider:Joy ZHANG MD [facility] Type:URO Office Visit Diagnostic Tests PendingUroVysion Fish and Urine Cyto ([facility]) 09/16/21 [facility] Evaluation + Plan note Future Appointments Appointment Date:02/13/2022 11:15:00 AM Scheduled Provider:Joy ZHANG MD Location:[facility] Appointment Type:URO Office Visit Diagnostic Tests PendingPSA Total 12/29/21 [facility] Evaluation + Plan note Future Appointments Appointment Date:06/02/2022 11:00:00 AM Scheduled Provider:Joy ZHANG MD [facility] Type:URO Office Visit Diagnostic Tests PendingProstate Histology ([facility]) 05/16/22 [facility] Evaluation + Plan note Future Appointments Appointment Date:12/01/2022 08:45:00 AM Scheduled Provider:Joy ZHANG MD [facility] Type:URO Office Visit Diagnostic Tests PendingPSA Total 10/14/22 [facility] Evaluation + Plan note Future Appointments Appointment Date:06/11/2023 09:45:00 AM Scheduled Provider:Joy ZHANG MD [facility] App[facility] Type:URO Office Visit [facility] Evaluation + Plan note Future Appointments Appointment Date:08/18/2024 10:30:00 AM Scheduled Provider:Joy ZHANG MD Location:[facility] Appointment Type:URO Office Visit [facility] Evaluation note Diagnosis Encounter for subsequent [...] Other B-complex deficiencies [facility] Diagnosis Phantom pain- Primary Phantom [...] Phantom limb (syndrome) documented [facility] Diagnosis Phantom pain- Primary Phantom [...] 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 (CMS/HCC) Atrial fibrillation Phantom pain Phantom limb (syndrome) documented in this encounter [facility] Healthcare[facility]* Diagnosis Phantom pain- Primary [...] fibrillation Phantom pain- Primary Phantom limb (syndrome) Pulmonary hypertension, unspecified (CMS/HCC) Aneurysm of the ascending aorta, without rupture (CMS/HCC) Primary hypertension (CMS/HCC) Unspecified essential hypertension 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 (CMS/HCC) Atrial fibrillation 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) Elevated PSA, between 10 and less than 20 ng/ml documented in this encounter [facility] Healthcare[facility] note* Diagnosis Phantom pain Phantom limb (syndrome) documented in this encounter [facility] Healthcare[facility] note* Diagnosis Phantom pain- Primary Phantom [...] fibrillation Phantom pain- Primary Phantom limb (syndrome) Pulmonary hypertension, unspecified (CMS/HCC) Aneurysm of the ascending aorta, without rupture (CMS/HCC) Primary hypertension (CMS/HCC) Unspecified essential hypertension 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 (CMS/HCC) Atrial fibrillation 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 Hospital Discharge instructions No data available for this section [facility] progress note No data available for this section [facility] Summary Purpose Family History No Family History [...] section and content) DATE CREATED AUTHOR 03/15/2021 [facility] DATE CREATED AUTHOR AUTHOR'S ORGANIZ ATION 04/07/2022 [facility] DATE CREATED AUTHOR AUTHOR'S ORGANIZ ATION 06/24/2022 [facility] DATE CREATED AUTHOR AUTHOR'S ORGANIZ ATION 08/18/2023 [facility] DATE CREATED AUTHOR AUTHOR'S ORGANIZ ATION 04/02/2024 [facility] DATE CREATED AUTHOR AUTHOR'S ORGANIZ ATION 04/04/2024 [facility] dical Specialists EPIC Care Team (unrecognized sect ion and content) Sales Expert Home Theater Relationship Specialty Start Date End Date Filipe Polanco MD PCP - General Family Medicine 10/06/22 Sales Expert Home [employer] Relationship Specialty Start Date End Date Filipe Polanco MD [address] [place] [address] PCP - General Family Medicine 05/23/23 Luciana Nicolas NP [address] [place] [address] Nurse Practitioner Family Medicine 05/23/23 Sales Expert Home Theater Relationship Specialty Start Date End Date Filipe Polanco MD [address] [place] [phone] PCP - General Family Medicine 05/23/23 Luciana Nicolas NP [address] [place] [phone] Nurse Practitioner Family Medicine 05/23/23 Sales Expert Home Theater Relationship Specialty Start Date End Date Filipe Polanco MD [address] [place] [phone] PCP - General Family Medicine 05/23/23 Luciana Nicolas NP [address] [place] [phone] Nurse Practitioner Family Medicine 05/23/23 Sales Expert Home Theater Relationship Specialty Start Date End Date Filipe Polanco MD [address] [place] [phone] PCP - General Family Medicine 05/23/23 Luciana Nicolas NP [address] [place] [phone] Nurse Practitioner Family Medicine 05/23/23 Sales Expert Home Theater Relationship Specialty Start Date End Date Filipe Polanco MD [address] [place] [phone] PCP - General Family Medicine 05/23/23 Luciana Nicolas NP [address] [place] [phone] Nurse Practitioner Family Medicine 05/23/23 Sales Expert Home Theater Relationship Specialty Start Date End Date Filipe Polanco MD [address] [place] [address] PCP - General Family Medicine 05/23/23 Luciana Nicolas NP [address] [place] [address] Nurse Practitioner Family Medicine 05/23/23 Reason for Visit (unrecogniz ed section and content) Reason Onset Date Comments Med Refill 03/17/2024 Reason Onset Date Comments Med Refill 12/18/2023 FOR RECORDS PERTAINING TO PATIENTS WHO ARE [...] BE BASED ON THE PRIMARY CLINICAL RECORDS. [facility]. provides no warranty or guarantee of the accuracy or completeness of information in this document.
[2024-05-28 12:25] LABS: Basophils Absolute Auto 0.1 10^3/uL (0.0-0.1); Basophils Percent Auto 0.8 % (0.2-2.0); Eosinophils Absolute Auto 0.3 10^3/uL (0.0-0.7); Eosinophils Percent Auto 3.9 % (0.9-7.0); Hematocrit 32.5 % (42.0-54.0); Hemoglobin 10.4 g/dL (14.0-18.0); Immature Granulocytes Abs Auto 0.02 10^3/uL (0.00-0.03); Immature Granulocytes Pct Auto 0.3 % (0.0-0.5); Lymphocytes Percent Auto 14.3 % (20.5-60.0); Mean Corpuscular Hemoglobin 28.8 pg (25.9-34.0); Mean Platelet Volume 9.9 fL (9.5-13.5); Monocytes Absolute Auto 0.5 10^3/uL (0.3-0.8); Monocytes Percent Auto 6.6 % (1.7-12.0); Neutrophils Absolute Auto 5.4 10^3/uL (1.4-6.5); Neutrophils Percent Auto 74.1 % (43.0-75.0); Platelet Count 321 10^3/uL (150-450); Red Blood Count 3.61 10^6/uL (4.70-6.10); Red Cell Distribution Width 13.6 % (11.0-15.0); White Blood Count 7.3 10^3/uL (4.0-11.0)
[2024-05-28 12:38] LABS: Bilirubin Urine NEGATIVE (NEGATIVE); Blood Urine SMALL (NEGATIVE); Clarity Urine CLEAR (CLEAR); Color Urine LT. YELLOW (YELLOW); Glucose Urine UA NEGATIVE (NEGATIVE); Ketones Urine NEGATIVE (NEGATIVE); Leukocyte Esterase Urine NEGATIVE (NEGATIVE); Nitrite Urine NEGATIVE (NEGATIVE); Protein Urine NEGATIVE (NEG/TRACE); Urobilinogen Urine 0.2 EU/dL (0.2-1.0)
[2024-05-28 12:40] LABS: Creatinine Urine Random 38.59 mg/dL (20.00-300.00); Microalbumin Urine Random <1.3 mg/dL (<=30.0)
[2024-05-28 12:53] LABS: Alanine Aminotransferase 20 U/L (16-63); Albumin Globulin Ratio 0.8; Alkaline Phosphatase 77 U/L (46-116); Anion Gap 10.1; Aspartate Amino Transferase 15 U/L (15-37); BUN Creatinine Ratio 12.8; Bilirubin Total 0.3 mg/dL (0.2-1.0); Calcium 8.8 mg/dL (8.5-10.1); Carbon Dioxide 31.9 mmol/L (21.0-32.0); Chloride 103 mmol/L (98-107); Estimated GFR (African America >60 (>=60 mL/min/1.73m^2); Estimated GFR (Non-African Ame >60 (>=60 mL/min/1.73m^2); Globulin 3.8 g/dL; Glucose 87 mg/dL (74-106); Sodium 141 mmol/L (136-145); Total Protein 6.8 g/dL (6.4-8.2)
[2024-05-28 13:28] LABS: Urine Microscopic Indicated YES
[2024-05-28 13:28] LABS: Prostate Specific Antigen Scrn 11.38 ng/mL (<=4.00)
[2024-05-28 13:49] LABS: Bacteria Urine NONE SEEN #/HPF (NONE SEEN); Mucus Urine NONE SEEN (NONE SEEN); RBC Urine 0-2 #/HPF (0-2); Squamous Epithelial Cell Urine FEW #/LPF (NONE/RARE); WBC Urine NONE SEEN #/HPF (NONE SEEN)
[2024-05-29 04:09] LABS: Vitamin B12 398 pg/mL (232-1245)
== END 2024-05-28 12:03 | disposition home or self-care (01) ==
LOC: LAB 12:05
PROVIDERS: PCP Nurse Practitioner; Visit Provider Nurse Practitioner
DX: I48.0 Paroxysmal atrial fibrillation (principal); Z92.29 Personal history of other drug therapy; E53.8 Deficiency of other specified B group vitamins; E55.9 Vitamin D deficiency, unspecified; I10 Essential (primary) hypertension; N40.1 Benign prostatic hyperplasia with lower urinary tract symptoms; R97.20 Elevated prostate specific antigen [PSA]
CPT/HCPCS: 36415; 80053; 81001; 82043; 82306; 82570; 82607; 85025; G0103

== ENCOUNTER 2024-11-23 18:20 | Emergency (ER) | payer MEDICARE, SELFPAY ==
[2024-11-23 18:27] VITALS: BP 141/82; PULSE 74; TEMP 36.4; O2SAT 100; BMI 20.3
--- OUTSIDE RECORDS SUMMARY | 2024-11-23 18:32 | XMS_ITS | Encounter Summary ---
Author Organization [facility] Address [address] [place] [address] Care Team Providers Care Pari Mutual Ticket Checker Name Role Phone Filipe Polanco MD Primary Care Provider [phone] Luciana Nicolas NP Unavailable [phone] Luciana Nicolas NP Unavailable [phone] Encounter Details Date Type Department Care Team (Late st Contact Info) Description 05/31/2023 Orders Only [facility] [address] [place] [address] Luciana Nicolas NP [address] [place] [address] Social History Tobacco Use Types Packs/Day Years Used Date Smoking Tobacco: Former Cigarettes 1.5 25 1 458 1982 Alcohol Use Standard Drinks/Week Comments Not Currently 0 (1 standard drink = 0.6 oz pur e alcohol) coffee 2 cups daily Humiliation, Afraid, Rape, and Kick questionnair e Answer Date Recorded Within the last year, have y ou been afraid of your partner or ex-partner? No 2023 Within the last year, have y ou been humiliated or emotionally abused in other ways by your partner or ex-partner? No Within the last year, have y ou been kicked, hit, slapped, or otherwise physically hurt by your partner or ex-partner? No 2023 Within the last year, have y ou been raped or forced to have any kind of sexual activity by your partner or ex-partner? No 2023 Social Connection and Isolat ion Panel [NHANES] Answer Date Recorded In a typical week, how many times do you talk on the phone with family, friends, or neighbors? Three times a week 2023 How often do you get togethe r with friends or relatives? Three times a week 2023 How often do you attend chur ch or yazidi services? More than 4 times per year 2023 Do you belong to any clubs o r organizations such as yazidism groups, unions, fraternal or athletic groups, or school groups? Yes 2023 How often do you attend meet ings of the clubs or organizations you belong to? More than 4 times per year 2023 Are you , , di vorced, , never , or living with a partner? 2023 AUDIT-C Answer Date Recorded Q1: How often do you have a drink containing alcohol? Monthly or less 2023 Q2: How many drinks containi ng alcohol do you have on a typical day when you are drinking? Patient does not drink Q3: How often do you have si x or more drinks on one occasion? Never 2023 Overall Financial Resource Strain (CARDIA) Answe r Date Recorded How hard is it for you to pa y for the very basics like food, housing, medical care, and heating? Not hard at all 2023 PHQ-2 Answer Date Recorded Patient Health Questionnaire-2 Score 0 2023 [facility] Answer Date Recorded Do you feel stress - tense, restless, nervous, or anxious, or unable to sleep at night because your mind is troubled all the time - these days? To some extent 2023 Exercise Vital Sign Answer Date Recorde d On average, how many days pe r week do you engage in moderate to strenuous exercise (like a brisk walk)? 4 days 2023 On average, how many minutes do you engage in exercise at this level? 10 min 2023 Hunger Vital Sign Answer Date Recorded Within the past 12 months, y ou worried that your food would run out before you got the money to buy more. Never true 05/23/19 24 Within the past 12 months, t he food you bought just didn't last and you didn't have money to get more. Never true 2023 PRAPARE - Transportation Answer Date Re corded In the past 12 months, has l ack of transportation kept you from medical appointments or from getting medications? No 10/2023 In the past 12 months, has l ack of transportation kept you from meetings, work, or from getting things needed for daily living? No 2023 Housing Stability Vital Sign Answer Sulaiman e Recorded In the last 12 months, was t here a time when you were not able to pay the mortgage or rent on time? No 2023 In the last 12 months, how many places have you lived? 1 2023 In the last 12 months, was t here a time when you did not have a steady place to sleep or slept in a care home (including now)? No 2023 Sex and Gender Information Value Date Recorded Sex Assigned at Not on file Legal Sex Male 7:05 PM EDT Gender Identity Not on file Sexual Orientation Not on file documented as of this encounter Plan of Treatment Upcoming Encounters Date Type Department Care Team (Late st Contact Info) Description 11/25/2024 1:00 PM EDT Office Visit [facility] [address] [place] [address] Luciana Nicolas NP [address] [place] [address] 06/01/2025 11:00 AM EST Office Visit [facility] [address] [place] [place] [address] Luciana Nicolas NP [address] [place] [address] documented as of this encounter Procedures Procedure Name Priority Date/Time Associated Diagnosis Comments COLONOSCOPY DIAGNOSTIC Routine 05/31/2023 3:29 PM EST documented in this encounter Results * COLONOSCOPY DIAGNOSTIC (05/31/2023 3:29 PM EST) Anatomical Region Laterality Modality Radiographic Do ging us Luciana Nicolas COMPLIANCE NURSE IMG XR PROCEDURES Final Result documented in this encounter Visit Diagnoses Not on filedocumented in this encounter Additional Health Concerns Assessment Noted Time PHQ-9 Depression Total Score: 4 05/23/19 24 10:24 AM EST documented as of this encounter Care Teams Pari Mutual Ticket Checker Relationship Specialty Start Date End Date Filipe Polanco MD [address] [place] [phone] PCP - General Family Medicine 05/23/23 Luciana Nicolas NP [address] [place] [address] PCP - ACO Reach 05/23/24 Luciana Nicolas NP [address] [place] [address] Nurse Practitioner Family Medicine 05/23/23 documented as of this encounter
--- OUTSIDE RECORDS SUMMARY | 2024-11-23 18:32 | XMS_ITS | Encounter Summary ---
Author Organization [facility] Address [address] [place] [address] Care Team Providers Care Rail Splitter Name Role Phone Filipe Polanco MD Primary Care Provider [phone] Luciana Nicolas NP Unavailable [phone] Luciana Nicolas REVENUE CYCLE ADMINISTRATOR Unavailable [phone] Encounter Details Date Type Department Care Team (Late st Contact Info) Description 08/26/2024 Orders Only [facility] [address] [place] [address] Don Zhang MD [address] [place] [address] Social History Tobacco Use Types Packs/Day Years Used Date Smoking Tobacco: Former Cigarettes 1.5 25 1 8 1982 Alcohol Use Standard Drinks/Week Comments Not [...] often do you attend chur ch or shinto services? More than 4 times per year 2023 Do you belong to any clubs o r organizations such as bahai groups, unions, fraternal or athletic groups, or [...] Recorded Patient Health Questionnaire-2 Score 0 2023 [facility] Answer Date [...] place to sleep or slept in a long term (including now)? No 2023 Sex and Gender Information Value Date Recorded Sex Assigned at Not on file Legal Sex Male 7:05 PM EDT Gender Identity Not on file Sexual Orientation Not on file documented as of this encounter Plan of Treatment Upcoming Encounters Date Type Department Care Team (Late st Contact Info) Description 11/25/2024 1:00 PM EDT Office Visit [facility] [address] [place] [address] Luciana Nicolas NP [address] [place] [phone] 06/01/2025 11:00 AM EST Office Visit [facility] [address] [place] [address] Luciana Nicolas NP [address] [place] [phone] documented as of this encounter Procedures Procedure Name Priority Date/Time Associated Diagnosis Comments SCANNED LABS Routine 08/26/2024 2:18 PM EDT documented in this encounter Results * SCANNED LABS (08/26/2024 2:18 PM EDT) us Don Zhang MD LAB CHG PERFORMABLES Final R esult documented in this encounter Visit Diagnoses Not on filedocumented in this encounter Additional Health Concerns Assessment Noted Time PHQ-9 Depression Total Score: 4 05/23/19 24 10:24 AM EST documented as of this encounter Care Teams Rail Splitter Relationship Specialty Start Date End Date Filipe Polanco MD [address] [place] [address] PCP - General Family Medicine 05/23/23 Luciana Nicolas NP [address] [place] [address] PCP - ACO Reach 05/23/24 Luciana Nicolas NP [address] [place] [address] Nurse Practitioner Family Medicine 05/23/23 documented as of this encounter
--- OUTSIDE RECORDS SUMMARY | 2024-11-23 18:32 | XMS_ITS | Encounter Summary ---
Author Organization [facility] Address [address] [place] [address] Care Team Providers Care Chemical Engineering Professor Name Role Phone Filipe Polanco MD Primary Care Provider [phone] Luciana Nicolas NP Unavailable [phone] Luciana Nicolas NP Unavailable [phone] Encounter Details Date Type Department Care Team (Late st Contact Info) Description 02/27/2024 Clinisync Result Encounter [facility] External Department Unsolicited Provider, Generic External Data Social History Tobacco Use Types Packs/Day Years Used Date Smoking Tobacco: Former Cigarettes 1.5 25 1 238 1982 Alcohol Use Standard Drinks/Week Comments Not [...] often do you attend chur ch or anabaptist services? More than 4 times per year 2023 Do you belong to any clubs o r organizations such as advent groups, unions, fraternal or athletic groups, or [...] Recorded Patient Health Questionnaire-2 Score 0 2023 [facility] - Occupational Stress Questionnaire Answer Date Recorded [...] place to sleep or slept in a correction (including now)? No 2023 Sex and Gender [...] Office Visit [facility] [address] [place] [address] Luciana Nicolas NP [address] [place] [address] 06/01/2025 11:00 AM EST Office Visit [facility] [address] [place] [address] Luciana Nicolas NP [address] [place] [address] documented as of this encounter Procedures Procedure Name Priority Date/Time Associated Diagnosis Comments CA ECHO DOPPLER COMPLETE 02/27/2024 4:52 PM EST documented in this encounter Results * CA ECHO DOPPLER COMPLETE (02/27/2024 4:52 PM EST) Anatomical Region Laterality Modality Other 02/27/2024 4:52 PM EST Narrative 02/27/2024 4:53 [place] [address] Cardiology Report Signed Patient: GUNNAR PAZ MR#: [id number] : 1935 Acct:[id number] Age/Sex: 88 / M ADM Date: 02/27/24 Loc: CARD Attending Dr: DANGELO GU Ordering Physician: DANGELO GU Date of Service: 02/27/24 Procedure(s): CA echo doppler complete Accession Number(s): [id number] cc: Luciana Nicolas EMERGENCY RESPONSE OFFICER; DANGELO GU Patient Name: GUNNAR PAZ MR#: [id number] : 1935 Exam Date: 02/27/2024 Ordering Doctor: DR DANGELO GU M.D. ECHOCARDIOGRAM REPORT PROCEDURE: CA ECHO DOPPLER COMPLETE INDICATIONS: Aortic aneurysm COMPARISON: None. DESCRIPTION: COMPLETE ECHOCARDIOGRAM Real-time transthoracic echocardiography with 2D, M-mode, spectral and color flow Doppler performed. QUALITY: Technical quality was good. LEFT VENTRICLE: Normal chamber size. Mild concentric left ventricular hypertrophy. Global left ventricular systolic function is normal. LV EF: Visual estimation of left ventricular ejection fraction is 60-65% DIASTOLIC: Diastolic function is indeterminate. ATRIAL SEPTUM: LEFT ATRIUM: Normal chamber size. RIGHT ATRIUM: Normal chamber size. RIGHT VENTRICLE: Normal chamber size. Normal right ventricular systolic function. TRICUSPID VALVE: Normal mobility and thickness. No stenosis with mild regurgitation. Doppler studies suggest mild pulmonary hypertension. RVSP 36 mmHg MITRAL VALVE: Normal mobility and thickness. No evidence of mitral valve stenosis. There is no mitral annular calcification. Mild mitral regurgitation. AORTIC VALVE: Normal trileaflet appearance. Mildly calcified aortic valve. Normal leaflet mobility. No evidence of aortic valve stenosis. DVI 0.7. Trivial aortic regurgitation. AORTIC ROOT: Moderately dilated, measuring 4.3 cm. 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 PULMONIC VALVE: Normal thickness and mobility. No stenosis. No regurgitation. PERICARDIUM: No evidence of pericardial effusion. IVC: Collapses with inspirations. Normal size. PLEURA: CONCLUSION: 1. Mild concentric left ventricular hypertrophy with normal systolic function. Estimated LVEF is 60 to 65%. 2. Normal right ventricular size and systolic function. 3. Mild mitral and tricuspid regurgitation. 4. The aortic valve is mildly calcified with no stenosis and trivial regurgitation. 5. 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 6. No pericardial effusion. Adult Echocardiography Procedure Report Left Ventricle LVEDD (3.7 - 5.6 cm): 4.20 cm LVESD (2.2 - 4.0 cm): 3.00 cm LVIVS thickness (0.6 - 1.2 cm): 1.16 cm LVPW thickness (0.5 - 1.0 cm): 0.93 cm e': 0.09 m/s E - e': 7.84 LVOT Max Gradient: 3.62 mm[Hg], 4.33 mm[Hg] LVOT Area (cm2): 1.00 m/s Peak Velocity (LVOT): 0.95 m/s, 1.04 m/s Mean Velocity (LVOT): 0.76 m/s LVOT Diameter 2.00 cm Left Ventricular Ejection Fraction: 60-65 % Left Atrium LA Volume Index (2D A2C): 25.24 ml/m2 Left Atrium Systolic Dimension: 3.04 cm Mitral Valve MV E to A Ratio: 0.86 Mitral Valve A-Wave Peak Velocity: 0.81 m/s Mitral Valve E-Wave Peak Velocity: 0.70 m/s Right Ventricle RV Internal Diastolic Dimension: 3.54 cm Aorta AO Root Diam: 4.29 cm Ascending Ao Diam: 4.47 cm Aortic Valve AoV Area (Peak Troy): 2.06 cm2, 1.96 cm2 AoV Area (VTI): 1.81 cm2, 1.74 cm2 Peak Velocity(Antegrade Flow): 1.52 m/s Peak Gradient(Antegrade Flow): 9.25 mm[Hg] Mean Velocity(Antegrade Flow): 1.03 m/s Mean Gradient(Antegrade Flow): 4.95 mm[Hg] Velocity Time Integral: 35.45 cm Tricuspid Valve Peak Velocity (Regurgitant Flow): 2.24 m/s, 2.89 m/s, 2.50 m/s Pulmonic Valve Mean Gradient: 1.10 mm[Hg], 2.33 mm[Hg] Mean Velocity: 0.48 m/s, 0.73 m/s Peak Velocity: 0.86 m/s Peak Gradient: 2.16 mm[Hg], 3.81 mm[Hg] Right Atrium Right Atrium Systolic Pressure: 30.37 ml, 30.37 ml Dictated by: Dangelo Gu M.D. on 02/27/2024 at 16:44 Approved by: Dangelo Gu M.D. on 02/27/2024 at 16:52 Dictated By: DANGELO GU Signed By: 02/27/241652 DD/ 51 TD/TT: Computer Typesetter Keyliner: Procedure Note Radiology, Radiologist, MD - 02/27/2024 [place] [address] Cardiology Report Signed Patient: GUNNAR PAZ JMR#: [id number] : 1935cct:[id number] Age/Sex: 88 / MADM Date: 02/27/24 Loc: CARD Attending Dr: DANGELO GU Ordering Physician: DANGELO GU Date of Service: 02/27/24 Procedure(s): CA echo doppler complete Accession Number(s): [id number] cc: Luciana Nicolas EMERGENCY RESPONSE OFFICER; DANGELO GU Patient Name: GUNNAR PAZ MR#: [id number] : 1935 Exam Date: 02/27/2024 Ordering Doctor: DR DANGELO GU M.D. ECHOCARDIOGRAM REPORT PROCEDURE: CA ECHO DOPPLER COMPLETE INDICATIONS: Aortic aneurysm COMPARISON: None. DESCRIPTION: COMPLETE ECHOCARDIOGRAM Real-time transthoracic echocardiography with 2D, M-mode, spectral and color flow Dopplerperformed. QUALITY: Technical quality was good. LEFT VENTRICLE: Normal chamber size. Mild concentric left ventricular hypertrophy. Global left ventricular systolic function is normal. LV EF: Visual estimation of left ventricular ejection fraction is60-65% DIASTOLIC: Diastolic function is indeterminate. ATRIAL SEPTUM: LEFT ATRIUM: Normal chamber size. RIGHT ATRIUM: Normal chamber size. RIGHT VENTRICLE: Normal chamber size. Normal right ventricularsystolic function. TRICUSPID VALVE: Normal mobility and thickness. No stenosis with mild regurgitation. Doppler studies suggest mild pulmonary hypertension. RVSP36 mmHg MITRAL VALVE: Normal mobility and thickness. No evidence of mitralvalve stenosis. There is no mitral annular calcification. Mild mitral regurgitation. AORTIC VALVE: Normal trileaflet appearance. Mildly calcified aorticvalve. Normal leaflet mobility. No evidence of aortic valve stenosis. DVI 0.7. Trivial aortic regurgitation. AORTIC ROOT: Moderately dilated, measuring 4.3 cm. Moderate dilatationof the ascending aorta measuring 4.5 cm which is unchanged from previous examof 09/18/2022. PULMONIC VALVE: Normal thickness and mobility. No stenosis. Noregurgitation. PERICARDIUM: No evidence of pericardial effusion. IVC: Collapses with inspirations. Normal size. PLEURA: CONCLUSION: 1. Mild concentric left ventricular hypertrophy with normal systolicfunction. Estimated LVEF is 60 to 65%. 2. Normal right ventricular size and systolic function. 3. Mild mitral and tricuspid regurgitation. 4. The aortic valve is mildly calcified with no stenosis and trivial regurgitation. 5. 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 6. No pericardial effusion. Adult Echocardiography Procedure Report Left Ventricle LVEDD (3.7 - 5.6 cm): 4.20 cm LVESD (2.2 - 4.0 cm): 3.00 cm LVIVS thickness (0.6 - 1.2 cm): 1.16 cm LVPW thickness (0.5 - 1.0 cm): 0.93 cm e': 0.09 m/s E - e': 7.84 LVOT Max Gradient: 3.62 mm[Hg], 4.33 mm[Hg] LVOT Area (cm2): 1.00 m/s Peak Velocity (LVOT): 0.95 m/s, 1.04 m/s Mean Velocity (LVOT): 0.76 m/s LVOT Diameter 2.00 cm Left Ventricular Ejection Fraction: 60-65 % Left Atrium LA Volume Index (2D A2C): 25.24 ml/m2 Left Atrium Systolic Dimension: 3.04 cm Mitral Valve MV E to A Ratio: 0.86 Mitral Valve A-Wave Peak Velocity: 0.81 m/s Mitral Valve E-Wave Peak Velocity: 0.70 m/s Right Ventricle RV Internal Diastolic Dimension: 3.54 cm Aorta AO Root Diam: 4.29 cm Ascending Ao Diam: 4.47 cm Aortic Valve AoV Area (Peak Troy): 2.06 cm2, 1.96 cm2 AoV Area (VTI): 1.81 cm2, 1.74 cm2 Peak Velocity(Antegrade Flow): 1.52 m/s Peak Gradient(Antegrade Flow): 9.25 mm[Hg] Mean Velocity(Antegrade Flow): 1.03 m/s Mean Gradient(Antegrade Flow): 4.95 mm[Hg] Velocity Time Integral: 35.45 cm Tricuspid Valve Peak Velocity (Regurgitant Flow): 2.24 m/s, 2.89 m/s, 2.50 m/s Pulmonic Valve Mean Gradient: 1.10 mm[Hg], 2.33 mm[Hg] Mean Velocity: 0.48 m/s, 0.73 m/s Peak Velocity: 0.86 m/s Peak Gradient: 2.16 mm[Hg], 3.81 mm[Hg] Right Atrium Right Atrium Systolic Pressure: 30.37 ml, 30.37 ml Dictated by: Dangelo Gu M.D. on 02/27/2024 at 16:44 Approved by: Dangelo Gu M.D. on 02/27/2024 at 16:52 Dictated By: DANGELO GU Signed By:02/27/241652 DD/ 51 TD/TT: Computer Typesetter Keyliner: [facility] [place] Data Provider [facility] Final Result documented in this encounter Visit Diagnoses Not on filedocumented in this encounter Additional Health Concerns Assessment Noted Time PHQ-9 Depression Total Score: 4 05/23/19 24 10:24 AM EST documented as of this encounter Care Teams Chemical Engineering Professor Relationship Specialty Start Date End Date Filipe Polanco MD [address] [place] [address] PCP - General Family Medicine 05/23/23 Luciana Nicolas NP [address] [place] [address] PCP - ACO Reach 05/23/24 Luciana Nicolas NP [address] [place] [phone] Nurse Practitioner Family Medicine 05/23/23 documented as of this encounter
--- OUTSIDE RECORDS SUMMARY | 2024-11-23 18:32 | XMS_ITS | Clinical Summary ---
Author Organization [facility] Address [address], [address] [place] [address] Care Team Providers Care Phone Screener Name Role Phone Tammychet Wesley Jefferson DO Primary Care Provider [phone] Allergies Active Allergy Reactions Criticality Noted Date Comments Penicillins Other (See Comments) 10/07/2012 Turn stools gritty Medications HYDROcodone-acet aminophen (VICODIN) 5-500 MG per tablet Take 1 tablet by mouth every 6 hours as needed. Active tamsulosin (FLOMAX) 0.4 MG capsule Take 0.4 mg by mouth daily. Active aspirin 81 MG tablet Take 81 mg by mouth daily. Active predniSONE (DELTASONE) 5 MG tablet Take 5 mg by mouth daily. Active finasteride (PROSCAR) 5 MG tablet Take 5 mg by mouth daily. 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 Social History Tobacco Use Types Packs/Day Years Used Date Smoking Tobacco: Former Cigarettes Q uit: 10/07/1977 Sex and Gender Information Value Date Recorded Sex Assigned at Not on file Legal Sex Male 9:23 AM EDT Gender Identity Not on file Sexual Orientation Not on file Last Filed Vital Signs Vital Sign Reading Time Taken Comments Blood Pressure 133/79 10/07/2012 2:00 PM EDT Pulse 56 10/07/2012 2:00 PM EDT Temperature 36.5 C (97.7 F) 10/07/2012 12:23 PM EDT Respiratory Rate 16 10/07/2012 2:00 PM EDT Oxygen Saturation 95% 10/07/2012 2:00 PM EDT Inhaled Oxygen Concentration - - Weight 80.7 kg (178 lb) 10/07/2012 12:23 PM EDT Height 185.4 cm (6' 1 ) 10/07/2012 12:23 PM EDT Body Mass Index 23.48 10/07/2012 12:23 PM EDT Plan of Treatment Not on file Advance Directives * Full Code (Latest Code Status on File) Date Activated Date Inactivated Comments 10/07/2012 3:24 PM 10/07/2012 4:20 PM * Full Code Date Activated Date Inactivated Comments 10/07/2012 12:22 PM 10/07/2012 3:24 PM Care Teams Phone Screener Relationship Specialty Start Date End Date Wesley Diaz DO [facility] [place] [address] PCP - General 09/27/12
--- OUTSIDE RECORDS SUMMARY | 2024-11-23 18:32 | XMS_ITS | Encounter Summary ---
Author Organization [facility] Address [address] [place] [address] Care Team Providers Care Sales Service Professional Name Role Phone Filipe Polanco MD Primary Care Provider [phone] Luciana Nicolas NP Unavailable [phone] Luciana Nicolas NP Unavailable [phone] Encounter Details Date Type Department Care Team (Late st Contact Info) Description 02/27/2024 Orders Only [facility] [address] [place] [address] Kun Gu MD [address] [place] [address] Social History Tobacco Use Types Packs/Day Years Used Date Smoking Tobacco: Former Cigarettes 1.5 25 1 1982 Alcohol Use Standard Drinks/Week Comments Not [...] often do you attend chur ch or amish services? More than 4 times per year 2023 Do you belong to any clubs o r organizations such as scientologist groups, unions, fraternal or athletic groups, or [...] Recorded Patient Health Questionnaire-2 Score 0 2023 [facility] Questionnaire Answer Date Recorded [...] place to sleep or slept in a residential (including now)? No 2023 Sex and Gender [...] Visit [facility] [address] [place] [address] Luciana Nicolas NP [address] [place] [address] 06/01/2025 11:00 AM EST Office Visit [facility] [address] [place] [address] Luciana Nicolas NP [address] [place] [phone] documented as of this encounter Procedures Procedure Name Priority Date/Time Associated Diagnosis Comments ECHOCARDIOGRAM WITH DOPPLER IF INDICATED Routine 02/27/2024 4:57 PM EST documented in this encounter Results * ECHOCARDIOGRAM WITH DOPPLER IF INDICATED (02/27/2024 4:57 PM EST) Anatomical Region Laterality Modality Radiographic Do ging us Kun Gu MD IMG XR PROCEDURES Final Resu lt documented in this encounter Visit Diagnoses Not on filedocumented in this encounter Additional Health Concerns Assessment Noted Time PHQ-9 Depression Total Score: 4 05/23/19 10:24 AM EST documented as of this encounter Care Teams Sales Service Professional Relationship Specialty Start Date End Date Filipe Polanco MD [address] [place] [phone] PCP - General Family Medicine 05/23/23 Luciana Nicolas NP [address] [place] [address] PCP - ACO Reach 05/23/24 Luciana Nicolas NP [address] [place] [phone] Nurse Practitioner Family Medicine 05/23/23 documented as of this encounter
--- OUTSIDE RECORDS SUMMARY | 2024-11-23 18:32 | XMS_ITS | Clinical Summary ---
Author Organization [facility] Address [address] [place] [address] Care Team Providers Care Nursing Director Name Role Phone Filipe Polanco MD Primary Care Provider [phone] Luciana Nicolas SIGN MAKER Unavailable [phone] Luciana Nicolas SIGN MAKER Unavailable [phone] Allergies Active Allergy Reactions Criticality Noted Date Comments Penicillins Other Low 10/07/2012 Turn stools gritty Medications apixaban (Eliquis) 2.5 MG tablet Take 1 tablet by mouth in the morning and 1 tablet in the evening. 3 Active losartan (Cozaar) 25 MG tablet Take 25 mg by mouth every other day 1 tablet by mouth every other day 3 Active tamsulosin (Flomax) 0.4 MG 24 hr capsule Take 1 capsule by mouth in the morning. Active gabapentin (Neurontin) 300 MG capsuleIndicatio ns:Phantom pain Take 1 capsule (300 mg) by mouth in the morning and 1 capsule (300 mg) before bedtime. 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 Take with meals. 90 tablet 1 5 02/06/20 Active ferrous sulfate 325 (65 Fe) MG tabletIndication s:Iron deficiency anemia, unspecified iron deficiency anemia type Take 1 tablet (325 mg) by mouth in the morning. Take with meals. 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 03/31/2024 Assessment & Plan (05/28/2024 6:52 AM EST): Check cbc yearly and prn Monitor for s/s GI bleeding Nocturia 03/31/2024 Weak urine stream 03/31/2024 Pulmonary hypertension, unspecified 02/27/2024 Overview (02/27/2024): Per ECHO findings 02/2024 at [facility] Assessment & Plan (05/28/2024 6:51 AM EST): Per ECHO findings 03/09 Assessment & Plan (04/01/2024 7:20 AM EST): Per ECHO findings Aneurysm of the ascending aorta, without rupture 02/27/2024 Overview (02/27/2024): 03/09 ECHO 4.5cm, unchanged Assessment & Plan (04/01/2024 7:19 AM EST): Continues to follow with cardiology for monitoring Crohn's disease of large intestine without compl ications 02/18/2024 Assessment & Plan (05/28/2024 6:51 AM EST): No current sxs Amputation of right lower ex tremity above knee upon examination 08/20/2023 Assessment & Plan (08/26/2024 6:39 AM EDT): OARRS reviewed Pain agreement is on file Fu in 3 months Assessment & Plan (04/01/2024 7:20 AM EST): OARRS reviewed Pain agreement is on file Fu in 3 months Assessment & Plan (11/21/2023 1:41 PM EDT): OARRS reviewed Pain agreement is on file Fu in 3 months Assessment & Plan (08/20/2023 2:01 PM EDT): OARRS reviewed Pain agreement signed Fu in 3 months Colon cancer screening 05/31/2023 Assessment & Plan (05/31/2023 2:41 PM EST): Pt requests screening colonoscopy, I obtained his scope from 09/19/2012 had sigmoid diverticulosis, mod 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 2023 Assessment & Plan (08/26/2024 6:39 AM EDT): Continue with anti coagulation Follows with cardiology Reviewed note from 04/08 Assessment & Plan (05/28/2024 6:51 AM EST): Continue with anti coagulation Follows with cardiology Reviewed note from 04/08 Assessment & Plan (04/01/2024 7:20 AM EST): Continue with anti coagulation Follows with cardiology Reviewed note from 04/08 Assessment & Plan (11/21/2023 1:41 PM EDT): Continue with anti coagulation Appears in NSR today in office Assessment & Plan (08/20/2023 1:44 PM EDT): Continue with anti coagulation Assessment & Plan (2023 11:38 AM EST): Continue with eliquis, no s/s GI bleeding Cont w cardiology as well Hypertension 2023 Assessment & Plan (08/26/2024 6:39 AM EDT): Please check blood pressure daily and record DASH diet Limit caffeine Take medication as directed Contact office if chest pain, pressure, dizziness, shortness of breath, swelling legs Recommend slow position changes Current med: losartan Assessment & Plan (05/28/2024 6:50 AM EST): Please check blood pressure daily and record DASH diet Limit caffeine Take medication as directed Contact office if chest pain, pressure, dizziness, shortness of breath, swelling legs Recommend slow position changes Current med: losartan Assessment & Plan (04/01/2024 7:19 AM EST): Please check blood pressure daily and record DASH diet Limit caffeine Take medication as directed Contact office if chest pain, pressure, dizziness, shortness of breath, swelling legs Recommend slow position changes Current med: losartan Assessment & Plan (11/21/2023 1:40 PM EDT): No med changes Contacted [facility] cardiology and they refilled his losartan 50mg QOD Assessment & Plan (08/20/2023 1:44 PM EDT): No med changes Assessment & Plan (2023 11:39 AM EST): Takes losartan every other day, no side effects Is under good control Check labs Elevated PSA, between 10 and less than 20 ng/ml 2023 Overview (08/26/2024): Per Urology, recommends no longer checking PSA levels 2024 Assessment & Plan (08/26/2024 6:44 AM EDT): Established with dr patel Assessment & Plan (05/28/2024 6:53 AM EST): Established with dr patel Assessment & Plan (04/01/2024 2:01 PM EST): Sees Dr patel, next appt April 2024 Benign prostatic hyperplasia 2023 Overview (2023): Benign prostatic hypertrophy Assessment & Plan (05/28/2024 6:53 AM EST): Continue with dr patel Assessment & Plan (2023 11:39 AM EST): Continue with dr patel Vitamin B12 deficiency 2023 Assessment & Plan (05/28/2024 6:54 AM EST): Takes supplement daily Encounter for subsequent [facility] wellness visit (AWV) in Medicare patient 2023 Assessment & Plan (05/28/2024 6:52 AM EST): Reviewed Ht/Wt/BMI Recommend eye exam yearly Recommend dental exams twice a year Exercises is recommended most days of the week (appropriate as chronic conditions allow) Follow up yearly and prn Assessment & Plan (2023 11:40 AM EST): Reviewed Ht/Wt/BMI Recommend eye exam yearly Recommend dental exams twice a year Balance work/leisure activities Exercises is recommended most days of the week (appropriate as chronic conditions allow) Follow up yearly and prn Would still like to be a full code Basal cell carcinoma of back 04/04/2023 History of basal cell carcinoma of skin 04/04/20 23 Phantom limb syndrome with pain 02/06/2019 Overview (2023): Added automatically from request for surgery [id number] Added automatically from request for surgery [id number] Assessment & Plan (08/26/2024 6:39 AM EDT): Continue with gabapentin and [place] OARRS reviewed Med Agreement signed: 05/28/24 Assessment & Plan (05/28/2024 11:46 AM EST): Continue with gabapentin and [place] OARRS reviewed Med Agreement signed: 05/28/24 Assessment & Plan (05/28/2024 6:49 AM EST): >>ASSESSMENT AND PLAN FOR PHANTOM PAIN WRITTEN ON 03/26/2023 2:46 PM BY LUCIANA NICOLAS NP OARRS reviewed Assessment & Plan (05/28/2024 6:49 AM EST): >>ASSESSMENT AND PLAN FOR PHANTOM PAIN WRITTEN ON 2023 11:38 AM BY LUCIANA NICOLAS NP Continue with current treatment Assessment & Plan (05/28/2024 6:49 AM EST): >>ASSESSMENT AND PLAN FOR PHANTOM PAIN WRITTEN ON 08/20/2023 1:45 PM BY LUCIANA NICOLAS NP Continue with current treatment Pain agreement signed OARRS reviewed Assessment & Plan (05/28/2024 6:49 AM EST): >>ASSESSMENT AND PLAN FOR PHANTOM PAIN WRITTEN ON 11/21/2023 1:42 PM BY LUCIANA NICOLAS NP Continue with current treatment Pain agreement on file OARRS reviewed Assessment & Plan (05/28/2024 6:49 AM EST): >>ASSESSMENT AND PLAN FOR PHANTOM PAIN WRITTEN ON 04/01/2024 7:18 AM BY LUCIANA NICOLAS NP Continue with current treatment Pain agreement on file: 08/31/23 OARRS reviewed Iron deficiency anemia 08/01/2017 Crohn's disease of small intestine without compl ications 02/23/2017 Assessment & Plan (05/28/2024 6:51 AM EST): No current sxs Assessment & Plan (08/20/2023 1:44 PM EDT): Had eval for colonoscopy, deffered Vitamin D deficiency 05/25/2016 Assessment & Plan (05/28/2024 6:54 AM EST): Check lab Fitting and adjustment of prosthetic device 11/2016 Hearing loss 05/24/2016 Resolved Problems Problem Noted Date Diagnosed Date Resolved Date Above knee amputation of left lower extremity 02/0708/20/2023 Assessment & Plan (08/20/2023 1:45 PM EDT): OARRS reviewed Pain aggreement Hypertensive disorder 02/02/20212023 Irregular heart rhythm 02/11/201611/20 Encounters Date Type Department Care Team Description 11/04/2024 Refill [facility] [address] [place] [address] Luciana Nicolas NP 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); Phantom limb syndrome with pain (HCC) 11/04/2024 Refill [facility] [address] [place] [address] Luciana Nicolas NP Iron deficiency anemia, unspecified iron deficiency anemia type 09/22/2024 Refill [facility] [address] [place] [phone] Luciana Nicolas NP Phantom pain 08/26/2024 1:20 PM EDT Office Visit [facility] [address] [place] [address] Luciana Nicolas NP 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); Phantom limb syndrome with pain (HCC); Primary hypertension ; 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 (HCC); Elevated PSA, between 10 and less than 20 ng/ml 08/26/2024 Orders Only [facility] [address] [place] [phone] Don Patel MD 08/26/2024 Telephone [facility] [address] [place] [phone] Luciana Nicolas NP from Last 3 Months Immunizations Immunization Administration Dates Next Due Influenza, High Dose Seasonal, Preservative Free 02/02/2024 Influenza, High-dose Seasona l, Quadrivalent, Preservative Free 01/16/2023,01/09/2022 Influenza, Seasonal, Quadrivalent, Adjuvanted Influenza, injectable, MDCK, preservative free, quadrivalent 02/23/2021 Influenza, injectable, quadrivalent, preservativ e free 01/27/2020 Moderna SARS-CoV-2 Vaccination 06/22/2020,2020 Pfizer Purple Cap SARS-CoV-2 Vaccination 021 Pneumococcal Polysaccharide PPSV23 01/27/2020 SARS-COV-2 (COVID-19) vaccin e, mRNA, spike protein, LNP, PF, megha-sucrose, 30 mcg/0.3 mL 02/02/2024,01/16/2023 SARS-COV-2 (COVID-19) vaccin e, mRNA, spike protein, LNP, bivalent, preservative free, 30 mcg/0.3 mL dose, megha-sucrose formulation 01/09/2022 Family History Medical History Relation Name Comments Melanoma Neg Hx Social History Tobacco Use Types Packs/Day Years Used Date Smoking Tobacco: Former Cigarettes 1.5 25 1 958 1982 Tobacco Cessation:Counseling Given: Not Answered Alcohol Use Standard Drinks/Week Comments Not Currently [...] week 2023 How often do you attend [facility] or protestant services? More than 4 times per year 2023 Do you belong to any clubs o r organizations such as oriental orthodox groups, unions, fraternal or athletic groups, or [...] Recorded Patient Health Questionnaire-2 Score 0 2023 [facility] - Occupational Stress [...] place to sleep or slept in a mcc (including now)? No 2023 Sex and Gender Information Value Date Recorded Sex Assigned at Not on file Legal Sex Male 7:05 PM EDT Gender Identity Not on file Sexual Orientation Not on file Last Filed Vital Signs Vital Sign Reading Time Taken Comments Blood Pressure 124/66 08/26/2024 1:28 PM EDT Pulse 87 08/26/2024 1:28 PM EDT Temperature 36.7 C (98.1 F) 08/26/2024 1:28 PM EDT Respiratory Rate 19 08/26/2024 1:28 PM EDT Oxygen Saturation 95% 08/26/2024 1:28 PM EDT Inhaled Oxygen Concentration - - Weight 73.4 kg (161 lb 12.8 oz) 08/26/2024 1:28 PM EDT Height 182.9 cm (6') 04/01/2024 1:26 PM EST Body Mass Index 21.94 04/01/2024 1:26 PM EST Plan of Treatment Upcoming Encounters Date Type Department Care Team (Late st Contact Info) Description 11/25/2024 1:00 PM EDT Office Visit [facility] [address] [place] [address] Luciana Nicolas NP [address] [place] [address] 06/01/2025 11:00 AM EST Office Visit [facility] [address] [place] [address] Luciana Nicolas, BETSY [address] [place] [address] Health Maintenance Due Date Last Done Comments Influenza Vaccine (#1) 2024 , 01/16/2023, 01/16/2023, Additional history exists Medicare Annual Wellness (AWV) 05/28/2025 05/28/2024, 2023 Pneumococcal Vaccine: 65+ Years Addressed 01/16/2023, 01/27/2020 Overridden with t he intention of not completing the topic Procedures Procedure Name Priority Date/Time Associated Diagnosis Comments SCANNED LABS Routine 08/26/2024 2:18 PM EDT from Last 3 Months Results * SCANNED LABS (08/26/2024 2:18 PM EDT) us Don Patel MD LAB CHG PERFORMABLES Final R esult from Last 3 Months Insurance MEDICARE AET Care Teams Nursing Director Relationship Specialty Start Date End Date Filipe Polanco MD [address] [place] [address] PCP - General Family Medicine 05/23/23 Luciana Nicolas NP [address] [place] [address] PCP - O Reach 05/23/24 Luciana Nicolas NP [address] [place] [address] Nurse Practitioner Family Medicine 05/23/23
--- OUTSIDE RECORDS SUMMARY | 2024-11-23 18:32 | XMS_ITS | Clinical Summary ---
Author Organization [facility] Address [address] [place] [address] Care Team Providers Care Returns Processor Name Role Phone Luciana Nicolas MD Primary Care Provider [phone] Allergies Active Allergy Reactions Criticality Noted Date Comments Penicillins Other 10/07/2012 Turn stools gritty Other reaction(s): Other (See Comments) Turn stools gritty Turn stools gritty Medications ferrous sulfate 325 (65 Fe) MG tablet Take 65 mg by mouth 3 (three) times a week. Active gabapentin (Neurontin) 100 mg capsule 1 capsule in the morning. Active tamsulosin (Flomax) 0.4 mg 24 hr capsule tamsulosin 0.4 mg capsule Active cyanocobalamin (Vitamin B-12) 1,000 mcg tablet Take 1,000 mcg by mouth in the morning. Active losartan (Cozaar) 25 mg tabletIndication s:Primary hypertension Take 1 tablet (25 mg) by mouth every other day. 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 03/31/2024 Nocturia 03/31/2024 Weak urine stream 03/31/2024 Aneurysm of ascending aorta without rupture 02/14 Overview (03/31/2024): 03/09 ECHO 4.5cm, unchanged Pulmonary hypertension 02/27/2024 Overview (03/31/2024): Per ECHO findings 02/2024 at [facility] Amputation of right lower ex tremity above knee upon examination 08/20/2023 Benign prostatic hyperplasia 2023 Overview (03/31/2024): Benign prostatic hypertrophy Elevated PSA, between 10 and less than 20 ng/ml 2023 Vitamin B12 deficiency 2023 Basal cell carcinoma of back 04/04/2023 History of basal cell carcinoma of skin 04/04/20 23 Phantom pain 03/26/2023 Hypertensive disorder 02/02/2021 Phantom limb pain 02/06/2019 Overview (06/05/2022): Added automatically from request for surgery [id number] Atrial fibrillation 07/12/2018 Small bowel stricture 05/13/2018 Iron deficiency anemia 08/01/2017 Crohn's disease of small intestine without compl ication 02/23/2017 Vitamin D deficiency 05/25/2016 Hearing loss 05/24/2016 Rheumatoid arthritis 05/24/2016 Fitting and adjustment of prosthetic device 11/2016 Irregular heart rhythm 02/11/2016 Special screening for malignant neoplasms, colon 02/11/2016 Nuclear senile cataract 10/07/2012 Encounters Date Type Department Care Team Description [facility] [address] [place] [address] Kun Gu MD 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 (CMS/HCC) (Primary Dx) from Last 3 Months Family History Medical History Relation Name Comments Coronary artery disease Paternal Grandmother Relation Name Status Comments Paternal Grandmother Social History Tobacco Use Types Packs/Day Years Used Date Smoking Tobacco: Former Cigarettes Smokeless Tobacco: Never Tobacco Cessation:Counseling Given: Not Answered Alcohol Use Standard Drinks/Week Comments Yes 0 (1 standard drink = 0.6 oz pur e alcohol) occasional [place] Safety & Environment Answer Date Rec orded Fear of Current or Ex-Partner Not on file Emotionally Abused Not on file 06/07/2023 Physically Abused Not on file 06/07/2023 Sexually Abused Not on file 06/07/2023 Physically or Sexually Abused Not on file Sex and Gender Information Value Date Recorded Sex Assigned at Not on file Legal Sex Male 12:12 AM EDT Gender Identity Not on file Sexual Orientation Not on file Last Filed Vital Signs Vital Sign Reading Time Taken Comments Blood Pressure 118/64 03/31/2024 1:00 PM EST Pulse 61 03/31/2024 1:00 PM EST Temperature - - Respiratory Rate - - Oxygen Saturation 98% 03/31/2024 1:00 PM EST Inhaled Oxygen Concentration - - Weight 72.1 kg (159 lb) 03/31/2024 1:00 PM EST Height 182.9 cm (6') 03/31/2024 1:00 PM EST Body Mass Index 21.56 03/31/2024 1:00 PM EST Plan of Treatment Health Maintenance Due Date Last Done Comments Medicare Annual Wellness (AWV) 1936 Depression Screening 1948 Adult Tetanus 1958 Zoster Vaccines (1 of 2) 1986 Fall Risk Screening 2001 Pneumococcal Vaccine: 50+ Years (2 of 2 - PCV) 01/26/2021 01/27/2020 COVID-19 Vaccine ( season) 2024 02/02/2024, 01/16/2023, 01/09/2022, Additional history exists Influenza Vaccine (#1) 2024 , 01/16/2023, 01/09/2022, Additional history exists HIB Vaccines Aged Out No longer eligi ble based on patient's age to complete this topic HPV Vaccines Aged Out No longer eligi ble based on patient's age to complete this topic IPV Vaccines Aged Out No longer eligi ble based on patient's age to complete this topic Meningococcal B Vaccine Aged Out No l onger eligible based on patient's age to complete this topic Meningococcal Vaccine Aged Out No sebastián freedom eligible based on patient's age to complete this topic Rotavirus Vaccines Aged Out No longer eligible based on patient's age to complete this topic Insurance MEDICARE AETNA Care Teams Returns Processor Relationship Specialty Start Date End Date Luciana Nicolas MD [address] [place] [address] PCP - General 06/05/22
--- OUTSIDE RECORDS SUMMARY | 2024-11-23 18:32 | XMS_ITS | Encounter Summary ---
Author Organization [facility] Address [address] [place] [address] Care Team Providers Care Corporate Tax Preparer Name Role Phone Filipe Polanco MD Primary Care Provider [phone] Filipe Polanco MD Primary Care Provider [phone] Luciana Nicolas HEADER MACHINE OPERATOR Unavailable [phone] Luciana Nicolas HEADER MACHINE OPERATOR Unavailable [phone] Encounter Details Date Type Department Care Team (Late Contact Info) Description 04/04/2023 Abstract [facility] [address] [place] [address] Luciana Nicolas NP [address] [place] [address] Social History Tobacco Use Types Packs/Day Years Used Date Smoking Tobacco: Former Cigarettes 1.5 25 1 8 - 1982 Tobacco Cessation:Counseling Given: Not Answered Sex and Gender Information Value Date Recorded Sex Assigned at Not on file Legal Sex Male 7:05 PM EDT Gender Identity Not on file Sexual Orientation Not on file documented as of this encounter Plan of Treatment Upcoming Encounters Date Type Department Care Team (Late Contact Info) Description 11/25/2024 1:00 PM EDT Office Visit [facility] [address] [place] [address] Luciana Nicolas NP [address] [place] [address] 06/01/2025 11:00 AM EST Office Visit [facility] [address] [place] [address] Luciana Nicolas NP [address] [place] [address] documented as of this encounter Visit Diagnoses Not on filedocumented in this encounter Care Teams Corporate Tax Preparer Relationship Specialty Start Date End Date Filipe Polanco MD PCP - General Family Medicine 10/06/22 05/22/23 Filipe Polanco MD [address] [place] [address] PCP - General Family Medicine 05/23/23 Luciana Nicolas NP [address] [place] [phone] PCP - ACO Reach 05/23/24 Luciana Nicolas NP [address] [place] [address] Nurse Practitioner Family Medicine 05/23/23 documented as of this encounter
--- OUTSIDE RECORDS SUMMARY | 2024-11-23 18:32 | XMS_ITS | Encounter Summary ---
Author Organization [facility] Address [address] [place] [address] Care Team Providers Care Support Analyst Name Role Phone Filipe Polanco MD Primary Care Provider [phone] Luciana Nicolas NP Unavailable [phone] Luciana Nicolas [employer] TECHNICIAN Unavailable [phone] Encounter Details Date Type Department Care Team (Late st Contact Info) Description 08/22/2024 Orders Only [facility] [address] [place] [address] Don Zhang MD [address] [place] [address] Social History Tobacco Use Types Packs/Day Years [...] often do you attend chur ch or sabianism services? More than 4 times per year 2023 Do you belong to any clubs o r organizations such as episcopal groups, unions, fraternal or athletic groups, or [...] Recorded Patient Health Questionnaire-2 Score 0 2023 [facility] Answer Date [...] place to sleep or slept in a long-term (including now)? No 2023 Sex and Gender [...] Visit [facility] [address] [place] [address] Luciana Nicolas NP [address] [place] [phone] 06/01/2025 11:00 AM EST Office Visit [facility] [address] [place] [address] Luciana Nicolas NP [address] [place] [phone] documented as of this encounter Procedures Procedure Name Priority Date/Time Associated Diagnosis Comments SCANNED LABS Routine 08/22/2024 10:13 AM EDT documented in this encounter Results * SCANNED LABS (08/22/2024 10:13 AM EDT) us Don Zhang MD LAB CHG PERFORMABLES Final R esult documented in this encounter Visit Diagnoses Not on filedocumented in this encounter Additional Health Concerns Assessment Noted Time PHQ-9 Depression Total Score: 4 05/23/19 24 10:24 AM EST documented as of this encounter Care Teams Support Analyst Relationship Specialty Start Date End Date Filipe Polanco MD [address] [place] [phone] PCP - General Family Medicine 05/23/23 Luciana Nicolas NP [address] [place] [address] PCP - ACO Reach 05/23/24 Luciana Nicolas NP [address] [place] [address] Nurse Practitioner Family Medicine 05/23/23 documented as of this encounter
--- OUTSIDE RECORDS SUMMARY | 2024-11-23 18:33 | XMS_ITS | CCD ---
Author Organization [facility] Care Team Providers Care Forecast Analyst Name Role Phone LITO ZHANGJASEN JANA Referring Unavailable LITO JENNIFER NANCYALEA Primary Care Unavailable UNKNOWN, PROVIDER Attending Unavailable UNKNOWN, PROVIDER Admitting Unavailable Irvin White Primary Care Physician LUCIANA NICOLAS Primary Care Physician Wesley Diaz Primary Care Unavailable Joy Zhang Attending Unavailable Joy Zhang Admitting Unavailable MOUKABROOKLYNN, DR PIERSON Admitting Unavailable MOUKARBEL, DR PIERSON Attending Unavailable AICHHOLZ, GUEST RELATIONS REPRESENTATIVE LUCIANA Primary Care Unavailable MOUKARBTOSHIA, DR PIERSON Consulting Unavailable AICHHOLZ, GUEST RELATIONS REPRESENTATIVE LUCIANA Primary Care Unavailable CASTRO REYES Admitting Unavailable KATH ., CASTRO Attending Unavailable KATH .MICHAELID Consulting Unavailable MEGAN, MONSTER Admitting Unavailable MONSTER GUZMAN Attending Unavailable IRVIN WHITE Primary Care Unavailable AICHHOLZ, GUEST RELATIONS REPRESENTATIVE LUCIANA Admitting Unavailable AICHHOLZ, GUEST RELATIONS REPRESENTATIVE LUCIANA Attending Unavailable AICHHOLZ, GUEST RELATIONS REPRESENTATIVE LUCIANA Primary Care Unavailable DEJUAN GUZMANINDA Admitting Unavailable MONSTER GUZMAN Attending Unavailable AICHHOLZ, GUEST RELATIONS REPRESENTATIVE LUCIANA Primary Care Unavailable MEGAN, MONSTER Consulting Unavailable AICHHOLZ, GUEST RELATIONS REPRESENTATIVE LUCIANA Admitting Unavailable AICHHOLZ, GUEST RELATIONS REPRESENTATIVE LUCIANA Attending Unavailable AICHHOLZ, GUEST RELATIONS REPRESENTATIVE LUCIANA Primary Care Unavailable AICHHOLZ, GUEST RELATIONS REPRESENTATIVE LUCIANA Consulting Unavailable DR JOY LUNA Admitting Unavailable DR JOY LUNA Attending Unavailable AICHHOLZ, GUEST RELATIONS REPRESENTATIVE LUCIANA Primary Care Unavailable DR JOY LUNA Consulting Unavailable Sherri OROZCO, Filipe Primary Care Provider Filipe Polanco MD Primary Care Provider Aichhololayinka RADIOLOGY SPECIALIST, Luciana Unavailable Fidencio RADIOLOGY SPECIALIST, Luciana Unavailable DANGELO JAEGER Attending Unavailable Fidencio RADIOLOGY SPECIALIST, Luciana Unavailable LUCIANA NICOLAS Attending Unavailable FIDENCIO, LUCIANA Attending Unavailable FIDENCIO, LUCIANA Attending Unavailable FIDENCIO, LUCIANA Attending Unavailable Joy ZHANG Attending Unavailable Joy ZHANG Attending Unavailable Joy ZHANG Attending Unavailable Joy ZHANG Admitting Unavailable Allergies Allergy Classification Reported Allergen(s) Allergy Type Date of Onset Reaction(s) Facility (11 sources) Penicillins; Translations: [penicillins] Drug allergy (disorder) 3 Unknown (qualifier value) [facility] Rep[facility] (8 sources) Dicloxacillin; Translations: [dicloxacillin] Drug Allergy 6 Other (qualifier value) [facility] (1 source) Unable to Assess Drug allergy (disorder) 2 [facility] Repository (4 sources) Penicillin G Drug Allergy 3 Unknown [facility] (20 sources) Penicillins; Translations: [penicillins] Drug Intolerance 3 Other, Unknown (qualifier value) [facility] Medications Current Medications Medication Drug Class(es) Dates Sig (Normalized) Sig (Original) acetaminophen 325 mg / HYDROcodone bitartrate 5 mg oral tablet (20 sources) Opioid Agonist Start: 11-04-2024 End: 12-04-2024 take 1 tablet by mouth once HYDROcodone-acetam inophen (Myrtle) 5-325 MG tablet Indications: 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) , Phantom limb syndrome with pain (HCC) Take 1 tablet by mouth every 12 (twelve) hours if needed for severe pain 60 tablet 11/04/2024 12/04/2024 Active Start: 09-22-2024 End: 10-22-2024 take 1 tablet by mouth once HYDROcodone-acetaminophen (Myrtle) 5-325 MG tablet Indications: Phantom pain Take 1 tablet by mouth every 12 (twelve) hours if needed for severe pain 60 tablet 09/22/2024 10/22/2024 Active Start: 08-11-2024 End: 09-10-2024 take 1 tablet by mouth once HYDROcodone-acetaminophen (Myrtle) 5-325 MG tablet Indications: Phantom pain Take 1 tablet by mouth every 12 (twelve) hours if needed for severe pain 60 tablet 08/11/2024 09/10/2024 Active Start: 05-13-2024 End: 07-25-2024 take 1 tablet by mouth once HYDROcodone-acetaminophen (Myrtle) 5-325 MG tablet Indications: Phantom pain Take 1 tablet by mouth every 12 (twelve) hours if needed for severe pain 60 tablet 05/28/2024 06/25/2024 Discontinued (Reorder) Start: 03-17-2024 End: 04-16-2024 take 1 tablet by mouth once HYDROcodone-acetaminophen (Myrtle) 5-325 MG tablet Indications: Phantom pain Take 1 tablet by mouth every 12 (twelve) hours if needed for severe pain 60 tablet 03/17/2024 04/16/2024 Active Start: 01-29-2024 End: 02-28-2024 take 1 tablet by mouth once HYDROcodone-acetaminophen (Myrtle) 5-325 MG tablet Indications: Phantom pain Take 1 tablet by mouth every 12 (twelve) hours if needed for severe pain 60 tablet 01/29/2024 02/28/2024 Active Start: 11-21-2023 End: 11-04-2024 take 1 tablet by mouth once HYDROcodone-acetaminophen (Myrtle) 5-325 MG tablet Indications: Phantom pain Take 1 tablet by mouth every 12 (twelve) hours if needed for severe pain 60 tablet 12/18/2023 01/17/2024 Active Start: 05-16-2023 End: 06-15-2023 take 1 tablet by mouth twice daily as needed for pain HYDROcodone-acetaminophen (Myrtle) 5-325 MG tablet Indications: Phantom pain (CMS/HCC) Take 1 tablet by mouth 2 (two) times a day as needed for severe pain 60 tablet 0 05/16/2023 06/15/2023 Active Start: 05-01-2022 Myrtle 325 mg-7 .5 mg oral tablet 1 tab(s), Oral, Once, 1 tab(s), Refill(s) 0, Take 1 hour prior to procedure. Don't drive or operate machinery while taking this medication., [facility] [id number], 185, cm, 02/13/22 11:34:00 EDT, Height/Length Dosing, 74.8, kg, 02/13/22 11:34:00 E... Start Date: 05/01/22 Status: Ordered apixaban 2.5 mg oral tablet (20 sources) Factor Xa Inhibitor Start: 10-30-2022 take 1 tablet by mouth in the morning apixaban (Eliquis) 2.5 MG tablet Take 1 tablet by mouth in the morning and 1 tablet in the evening. 10/30/2022 Active Aspirin (4 sources) Platelet Aggregation Inhibitor, Nonsteroidal Anti-inflammatory Drug Start: 09-24-2019 aspirin Start Date: 09/24/19 Status: Ordered cholecalciferol 0.05 mg oral capsule (7 sources) Vitamin D Start: 05-30-2024 End: 08-28-2024 take 1 capsule by mouth once daily cholecalciferol (Vitamin D-3) 50 MCG (2000 UT) capsule Indications: Vitamin D deficiency Take 1 capsule (50 mcg) by mouth Daily 90 capsule 05/30/2024 08/28/2024 Active ciprofloxacin 250 mg oral tablet (2 sources) Quinolone Antimicrobial Start: 12-12-2021 take 1 tablet by mouth twice daily Cipro 250 mg Tab 250 mg = 1 tab(s), Oral, BID, # 42 tab(s), Refills(s) 0, Pharmacy: [facility] [id number], 185, cm, 12/12/21 12:02:00 EDT, Height/Length Dosing, [...] Ordered ferrous sulfate 325 mg oral tablet (10 sources) Start: 11-07-2024 End: 02-05-2025 take 1 tablet by mouth at mealtime ferrous sulfate 325 (65 Fe) MG tablet Indications: Iron deficiency anemia, unspecified iron deficiency anemia type Take 1 tablet (325 mg) by mouth in the morning. Take with meals. 90 tablet 1 11/07/2024 02/05/2025 Active Start: 05-30-2024 End: 08-28-2024 take 1 tablet by mouth at mealtime ferrous sulfate 325 (65 Fe) MG EC tablet Indications: Iron deficiency anemia, unspecified iron deficiency anemia type Take 1 tablet (325 mg) by mouth in the morning. Take with meals. Do not crush, chew, or split.. 90 tablet 1 05/30/2024 08/28/2024 Active Start: 11-21-2023 End: 02-19-2024 take 1 tablet by mouth at mealtime ferrous sulfate 325 (65 Fe) MG tablet Indications: Iron deficiency anemia, unspecified iron deficiency anemia type Take 1 tablet (325 mg) by mouth in the morning. Take with meals. 90 tablet 1 11/21/2023 02/19/2024 Active gabapentin 300 mg oral capsule (20 sources) Anti-epileptic Agent Start: 03-26-2023 End: 08-26-2024 take 1 capsule by mouth in the morning gabapentin (Neurontin) 300 MG capsule Indications: Phantom pain Take 1 capsule (300 mg) by mouth in the morning and 1 capsule (300 mg) before bedtime. 180 capsule 1 05/28/2024 Active Start: 03-28-2021 take 1 mg by mouth t hree times daily gabapentin 100 mg Cap mg cap(s), Oral, TID, Refills(s) 0 Start Date: 03/28/21 Status: Ordered Repeat number: 1 HYDROcodone (2 sources) Opioid Agonist Start: 03-28-2021 hydrocodone Or al, Refills(s) 0 Start Date: 03/28/21 Status: Ordered Iron 100 Plus (1 source) Start: 03-28-2021 Iron 100 Plus Oral, Daily, Refill(s) 0 Start Date: 03/28/21 Status: Ordered Iron Chews (3 sources) Start: 12-01-2022 take 1 mg by mouth once daily Iron Chews mg, Oral, Daily, Refills(s) 0 Start Date: 12/01/22 Status: Ordered Repeat number: 1 Start: 12-01-2022 take 1 mg by mouth once daily Iron Chews mg, Oral, Daily, Refills(s) 0 Start Date: 12/01/22 Status: Ordered losartan potassium 25 mg oral tablet (20 sources) Angiotensin 2 Receptor Getachew Start: 03-16-2023 [...] Refills(s) 0 Start Date: 12/10/20 Status: Ordered Repeat number: 1 metroNIDAZOLE 500 mg oral tablet (1 source) Nitroimidazole Antimicrobial Start: 03-28-2021 take 1 mg by mouth three times daily MetroNIDAZOLE 500 mg Tab mg tab(s), Oral, TID, Refills(s) 0 Start Date: 03/28/21 Status: Ordered 24 hr mirabegron 50 mg extended release oral tablet (8 sources) beta3-Adrenergic Agonist Start: 08-18-2024 End: 08-13-2025 take 1 tablet by mouth once daily Myrbetriq 50 MG 24 hr tablet Take 50 mg by mouth Daily 08/18/2024 Active 24 hr oxybutynin chloride 5 mg extended [...] Bedtime, # 30 tab(s), Refills(s) 11, Pharmacy: [facility] [id number], 185, cm, 12/12/21 12:02:00 EDT, Height/Length Dosing, 74.8, kg, 12/12/21 12:02:00 EDT, Weight Dosing Start Date: 12/12/21 Status: Ordered tamsulosin hydrochloride 0.4 mg oral capsule (20 sources) alpha-Adrenergic Getachew Start: 02-12-2024 take 1 capsule by mouth twice daily tamsulosin 0.4 mg Cap 0.4 mg = 1 cap(s), Oral, BID, # 180 cap(s), Refills(s) 3, Pharmacy: [facility] [id number], 185, cm, 08/17/23 9:39:00 EDT, Height/Length Dosing, 74, kg, 08/17/23 9:39:00 EDT, Weight Dosing Start Date: 02/12/24 Status: Ordered Quantity: 180.0 Unit: cap(s) Repeat number: 4 Start: 01-22-2023 take 1 capsule by [facility] twice daily tamsulosin 0.4 mg Cap 0.4 mg = 1 cap(s), Oral, BID, # 180 cap(s), Refills(s) 3, Pharmacy: [facility], 185, cm, 12/01/22 9:15:00 EDT, Height/Length Dosing, 74.6, kg, 12/01/22 9:15:00 EDT, Weight Dosing Start Date: 01/22/23 Status: Ordered Start: 01-20-2022 take 1 capsule by [facility] twice daily tamsulosin 0.4 mg Cap 0.4 mg = 1 cap(s), Oral, BID, # 180 cap(s), Refills(s) 3, Pharmacy: [facility]), 185, cm, 12/12/21 12:02:00 EDT, Height/Length Dosing, 74.8, kg, 12/12/21 12:02:00 EDT, Weight Dosing Start Date: 01/20/22 Status: Ordered Start: 12-10-2020 take 1 capsule by [facility] twice daily tamsulosin 0.4 mg Cap 0.4 mg = 1 cap(s), Oral, BID, # 180 cap(s), Refills(s) 3, Pharmacy: [facility], 185, cm, 12/10/20 11:18:00 EDT, Height/Length Dosing, 75.4, kg, 12/10/20 11:18:00 EDT, Weight Dosing Start Date: 12/10/20 Status: Ordered take 1 capsule by mo ut every twenty-four hours in the morning tamsulosin (Flomax) 0.4 MG 24 hr capsule Take 1 capsule by mouth in the morning. Active Vitamin B1 (1 source) Start: 03-28-2021 Vitamin B1 Akila ly, Refills(s) 0 Start Date: 03/28/21 Status: Ordered vitamin B12 (18 sources) Vitamin B12 Start: 12-01-2022 Vitamin B-12 R efills(s) 0 Start Date: 12/01/22 Status: Ordered Repeat number: 1 Start: 12-01-2022 Vitamin B-12 R efills(s) 0 Start Date: 12/01/22 Status: Ordered End: 05-28-2024 take 1 tablet by mouth in the morning cyanocobalamin (Vitamin B-12) 1000 MCG tablet Take 1 tablet by mouth in the morning. 05/28/2024 Discontinued Completed/Discontinued Medications Medication Drug Class(es) Dates Sig (Normalized) Sig (Original) doxycycline hyclate 100 mg oral capsule (1 source) Tetracycline-clas s Drug Start: 03-28-2021 take 1 capsule by mouth once daily doxycycline hyclate 100 mg Cap 100 mg = 1 cap(s), Oral, Daily, Take 1 pill the day before the procedure and 1 pill after the procedure, # 2 cap(s), Refills(s) 0, Pharmacy: [facility], 185, cm, 03/28/21 13:13:00 EST, Height/Length Dosing, 75.4, kg, 03/28/21 13:13:00 EST, We... Start Date: 03/28/21 Status: Ordered fluticasone 0.05 mg/inh Nasal [place] (5 sources) Start: 02-13-2022 take 1 spray(s) nasal route once daily fluticasone 0.05 mg/inh Nasal [place] Refill(s) 0, 16 gm, SPRAY 1 SPRAY INTO EACH NOSTRIL EVERY DAY Start Date: 02/13/22 Status: Ordered Repeat number: 1 Start: 10-31-2022 take 1 spray(s) nasa l route once daily fluticasone 0.05 mg/inh Nasal [place] Refill(s) 0, 16 gm, SPRAY 1 SPRAY INTO EACH NOSTRIL EVERY DAY Start Date: 02/13/22 Status: Ordered Problems Active Problems Problem Classification Problem Date Documented Da te Episodic/Chronic Aortic; peripheral; and visceral artery aneurysms (20 sources) Thoracic aortic ectasia; Translations: [Aneurysm of ascending aorta] Onset: 06-22-2022 02-27-2024 Chronic Cardiac dysrhythmias (20 sources) 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; Translations: [Unspecified atrial fibrillation] Onset: 02-11-2016 Resolved: 11-21-2023 Chronic Deficiency and other anemia (20 sources) Iron deficiency anemia; Translations: [Iron deficiency anemia, unspecified] Onset: 08-01-2017 2023 Episodic Essential hypertension (20 sources) Hypertensive disorder; Translations: [Essential (primary) hypertension] Onset: 02-02-2021 Resolved: 2023 09-24-2019 Chronic Hyperplasia of prostate (20 sources) Benign prostatic hypertrophy with outflow obstruction; Translations: [Benign prostatic hyperplasia with lower urinary tract symptoms] Onset: 09-19-2021 09-24-2019 Chronic Nutritional deficiencies (20 sources) Vitamin D deficiency; Translations: [Vitamin D deficiency, unspecified] Onset: 05-25-2016 2023 Chronic Open wounds of extremities (20 sources) Amputated right lower limb above knee; Translations: [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, initial encounter] Onset: 08-20-2023 08-20-2023 Chronic Osteoarthritis (7 sources) Arthritis 09-24-2019 Chronic Other diseases of kidney and ureters (1 source) Urinary tract obstruction; Translations: [Other obstructive and reflux uropathy] Onset: 08-18-2024 Episodic Other ear and sense organ disorders (20 sources) Hearing loss; Translations: [Unspecified hearing loss, [...] 03-26-2023 03-26-2023 Chronic Other nervous system disorders (20 sources) Phantom limb syndrome with pain; Translations: [Phantom limb syndrome with pain] Onset: 02-06-2019 Resolved: 08-20-2023 2023 Chronic Other nervous system disorders (2 sources) Unsteadiness on feet; Translations: [Unsteadiness on feet] Onset: 03-31-2024 Episodic Pulmonary heart disease (20 sources) Pulmonary hypertension; Translations: [Pulmonary hypertension, unspecified] Onset: 02-27-2024 02-27-2024 Chronic Regional enteritis and ulcerative colitis (20 sources) Crohn's disease; Translations: [Crohn's disease of small intestine] Onset: 02-23-2017 09-24-2019 Chronic Unclassified (1 source) CONTACT W/AND (SUSP) EXPOS COVID-19; Translations: [CONTACT W/AND (SUSP) EXPOS COVID-19] Onset: 09-19-2021 Unclassified (1 source) Aneurysm of the ascending aorta, without rupture; Translations: [Aneurysm of the ascending aorta, without rupture] Onset: 03-31-2024 Past or Other Problems Problem Classification Problem Date Documented Date Episodic/Chronic Genitourinary symptoms and ill-defined conditions (20 sources) Blood in urine; Translations: [Gross hematuria] Onset: 09-16-2021 Episodic Mood disorders (20 sources) Mood disorders Onset: 2023 2023 Nutritional deficiencies (20 sources) Deficiency of other specified B group vitamins; Translations: [Cobalamin deficiency] Onset: 10-19-2021 2023 Episodic Open wounds of extremities (20 sources) Amputated left lower limb above knee; Translations: [Complete traumatic amputation at level between left hip and knee, initial encounter] Onset: 2023 Resolved: 08-20-2023 2023 Chronic Other aftercare (1 source) Other oil heaterman (current) drug therapy; Translations: [OTH [facility] CURRENT DRUG THERAPY] Onset: 09-19-2021 Episodic Other non-epithelial cancer of skin (20 sources) [...] fitting of prostheses; and adjustment of devices (20 sources) Follow-up status; Translations: [Encounter for fitting and adjustment of unspecified external prosthetic device] Onset: 05-24-2016 2023 Episodic Residual codes; unclassified (20 sources) H/O: anticoagulant therapy; Translations: [Personal history of other drug therapy] Onset: 03-31-2024 12-08-2019 Episodic Screening and history of mental health and substance abuse codes (1 source) Personal history of nicotine dependence; Translations: [PERSONAL HISTORY OF NICOTINE DEPEND] Onset: 09-19-2021 Episodic Unclassified (1 source) Aneurysm of the ascending aorta, without rupture; Translations: [Aneurysm of the ascending aorta, without rupture] Onset: 03-31-2024 Results Test Name Value Interpretation Reference Range Facility Urine Cytology ([facility])on 08-21-2024 Microscopic exam Cytology (U) [Interp] Diagnosis Info Invalid Interpretation Code [facility] Comment on above: Result Comment: A:Ur ine,Urine:Voided Interpretation - Adequate cellularity for evaluation. CPT 56344 MicroScopic Description - Adequacy - Gross Description Site ID:A color Yellow fixative Alcohol Specimen designated Urine received in alcohol preservative and labeled with the patient???s name, consists of 100ml clear yellow fluid. Electronically signed by : on: 08/21/2024 13:07:55 Performed By: #### 1 [id number] #### [facility] [address] [place] [address] Ambulatory Visit Summaryon 08-18-2024 Ambulatory Visit Summary Ambulatory Visit Summary ROBIN PAZ :1935 Visit Date:08/18/2024 Ambulatory Visit Instructions Your Diagnosis BPH with urinary obstruction Nocturia Elevated PSA Hematuria, microscopic Your Care Team Attending Physician - Joy ZHANG MD Primary Care Physician - LUCIANA NICOLAS CNP This Is Your Medications List mirabegron (mirabegron 50 mg oral tablet, extended release) tamsulosin (tamsulosin 0.4 mg Cap) Contact prescribing physician if questions or concerns apixaban (Eliquis 2.5 mg oral tablet) carbonyl iron (Iron Chews) cyanocobalamin (Vitamin B-12) fluticasone nasal (fluticasone 0.05 mg/inh Nasal [place]) gabapentin (gabapentin 100 mg Cap) losartan (losartan 25 mg Tab) Procedures Performed Transrectal needle biopsy of prostate (05/16/2022), TURP - Transurethral resection of prostate (08/19/2015), Urodynamics (07/28/2015), Transurethral resection of prostate (11/30/2009), Transurethral resection of prostate (09/07/2009), Amputation of leg, Colonoscopy, Hernia repair, Unlisted procedure, femur or knee. Discharge Vitals Heart Rate (Peripheral) 70 Respiratory Rate 18 Blood Pressure 140/64 Height 185 cm Height 73 in Weight 74 kg Weight 163.142 lb BMI 21.62 What to do next You Need to Schedule the Following Appointments Follow Up with MILKA OROZCO, Joy Gutierrez, ROMERO When: Where: [facility] [address] , [place] [address]- [phone] Medications What How Much When Why Instructions New mirabegron (mirabegron 50 mg oral tablet, extended release) 1 Tablets By Mouth Every day Nocturia Duration: 30 Days Refills: 11 Pickup at [facility] [id number] Unchanged tamsulosin (tamsulosin 0.4 mg Cap) 1 Capsules By Mouth 2 times a day Unchanged apixaban (Eliquis 2.5 mg oral tablet) Contact prescribing physician if questions or concerns Unchanged carbonyl iron (Iron Chews) By Mouth Every day Contact prescribing physician if questions or concerns Unchanged cyanocobalamin (Vitamin B-12) Contact prescribing physician if questions or concerns Unchanged fluticasone nasal (fluticasone 0.05 mg/ inh Nasal [place]) 16 gm, SPRAY 1 SPRAY INTO EACH NOSTRIL EVERY DAY Contact prescribing physician if questions or concerns Unchanged gabapentin (gabapentin 100 mg Cap) By Mouth 3 times a day Contact prescribing physician if questions or concerns Unchanged losartan (losartan 25 mg Tab) By Mouth Every day Contact prescribing physician if questions or concerns Pharmacy Information [facility] [id number]: [address], [place] [id number] [phone] Allergies dicloxacillin (Other) penicillins (Unknown) Problems Ongoing - Any problem that you are currently receiving treatment for. Arthritis Atrial fibrillation BPH with urinary obstruction Crohn's disease Elevated PSA Gross hematuria Hematuria, microscopic Hx of senior living use of blood thinners Hypertension Hypertensive disorder Nocturia Weak urine stream Patient Survey You may receive a survey via text or e-mail asking about your office visit. Please share your experience with us by completing your survey. We appreciate your feedback and thank you for choosing us for your care. Education Materials Urinary Frequency, Adult Urinary frequency means urinating more often than usual. You may urinate every 1???2 hours even though you drink a normal [...] bladder health. You may be told to: ??? Keep a bladder diary. Keep track of: ? What you eat and drink. ? How often you urinate. ? How much you urinate. ??? Follow a bladder training program. This may include: ? Learning to delay going to the bathroom. ? Double urinating, also called voiding. This helps if you are not completely emptying your bladder. ? Scheduled voiding. ??? Do Kegel exercises. Kegel exercises strengthen the muscles that help control urination, which may help the condition. Eating and drinking Follow instructions from your health care provider about eating or drinking restrictions. You may be told to: ??? Avoid caffeine. ??? Drink fewer fluids, especially alcohol. ??? Avoid drinking in the evening. ??? Avoid foods or drinks that may irritate the bladder. These include coffee, tea, soda, artificial sweeteners, citrus, tomato-base (more content not included)... Normal [facility] Urine Cytology ([facility])on 0 08-18-2024 Method of Extraction Voided Normal [facility] Comment on above: Performed By: #### 1 [id number] #### [facility] [address] Number of Jars 1 Invalid Interpretation Code [facility] Comment on above: Performed By: #### 1 [id number] #### [facility] [address] [id number] Specimen Urine Normal [facility] Comment on above: Performed By: #### 1 [id number] #### [facility] [address] [place] [address] Type of Service Technical Only Normal [facility] Comment on above: Performed By: #### 1 [id number] #### [facility] [address] [place] [address] Urology Office/Clinic Noteon 08-18-2024 Urology Office/Clinic Note Urology Office/Clinic Note Chief Complaint 1 year follow up HPI Staff 89 year old male patient here for one year follow up. Previous DX: BPH with urinary obstruction, gross hematuria. *Flomax 0.4 mg BID-refill sent to [facility] IPSS 13 Current PSA 11.38 05/28/24 3x a night, denies visible blood UA shows SMALL, steady stream, denies pain or burning, denies abdomen/flank pain History of Present Illness Tests reviewed: reviewed UA, PSA I have reviewed the previous health record [...] HPI. Physical Exam Vitals & Measurements HR: 70(Peripheral) RR: 18 BP: 140/64 HT: 73 in HT: 185 cm WT: 74 kg WT: 163.142 lb BMI: 21.62 General Appearance: alert, no distress, well nourished, well developed male. Assessment/Plan 1. BPH with urinary obstruction (N40.1: Benign prostatic hyperplasia with lower urinary tract symptoms) IPSS 13. Taking Tamsulosin 0.4 mg bid (AM and PM). Nocturia 3x. Feels urge to void wakes him. Frequency varies during the day, tends to void more often when out in public. Denies UUI. Discussed adding another med. Also discussed possible etiologies of nocturia as pt may be waking from pain or DANIEL vs urgency. Pt is interested in trying medication to improve urination. -Start Myrbetriq ER 50 mg qd. Possible SEs discussed. Rx sent to [facility]. Pt to call if cost prohibitive. -Cont Tamsulosin wo changes. Pt to call for refills. -F/u in 3 mos 2. Nocturia (R35.1: Nocturia) See #1. 3. Elevated PSA (R97.20: Elevated prostate specific antigen [PSA]) PSA: 10/01/21 - 7.29 10/13/21 - 14.61 02/13/22 - 11.04 05/29/23 - 10.79 05/28/24 - 11.38 (ordered by PCP) MRI of prostate 03/22/22 shows prostate volume 90 mL. Area involving the lateral aspect of the right peripheral zone at the level of the mid gland measuring 11 x 6 mm. PI-RADS 4. S/p TRUS/bx 05/16/22 - Path neg Stopped PSA checks previously due to age and chances of developing and having problems from prostate cancer were low. Again discussed d/c of PSA monitoring given previous negative biopsy, hx of higher levels, and large prostate size. Pt agrees. Recommended pt to have PCP stop PSA checks as well. -D/c PSA monitoring w/ PCP 4. Hematuria, microscopic (R31.29: Other microscopic hematuria) S/p Cysto 04/05/21. Negative hematuria workup in 2020. UA today shows small blood (trace-intact on prior UA). No gross hematuria recurrence since 2020. urine for cytology today. -Cont sx monitoring and routine UAs. Pt knows to notify the office if he were to experience gross hematuria or clots. Follow-up With When Contact Information MILKA OROZCO, Joy Gutierrez, [facility] [address], [place] [address] [phone] Additional Instructions: 3 mos (new med) Patient Education Urinary Frequency, Adult I, Kristie Squires, personally scribed for Dr. Zhang on 08/18/2024 10:38:18. . Documentation recorded by the scribe, Kristie Squires, accurately reflects the services(s) I performed and decisions made by me. Authenticated by Dr. Zhang on 08/18/2024 10:50:55. 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 Medications Eliquis 2.5 mg oral tablet fluticasone 0.05 mg/inh Nasal [place] gabapentin 100 mg Cap, Oral, TID Iron Chews, Oral, Daily losartan 25 mg Tab, Oral, Daily tamsulosin 0.4 mg Cap, 0.4 mg= 1 cap(s), Oral, BID, 3 refills Vitamin B-12 Allergies dicloxacillin (Other) penicillins (Unknown) Social History Alcohol - Low Risk, 09/24/2019 Tobacco Former smoker, quit more than 30 days ago, quit 30 years ago Tobacco Use:. Never Smokeless Tobacco Use:. Cigarettes, Stopped age 35 Years. Hous (more content not included)... Normal [facility] Comment on above: Result Comment: Elec tronically Signed By: Joy ZHANG MD\.br\Date and Time Signed: 08/18/24 10:51 EDT\.br\Electronically Co-Signed By: Kristie Squires\.br\Date and Time Co-Signed: 08/18/24 10:38 EDT\.br\Electronically Co-Signed By: Kristie Squires\.br\Date and Time Co-Signed: 08/18/24 10:40 EDT ALL CBC WITH AUTO DIFFon BASOPHILS ABSOLUTE AUTO 0.1 [facility] Basophils/100 WBC (Bld) 0.8 % 0.2 - 2.0 % [facility] Eosinophils/100 WBC (Bld) 3.9 % 0.9 - 7.0 % [facility] Erythrocyte distribution width (RBC) [Ratio] 13.6 % 11.0 - 15.0 % [facility] Hematocrit (Bld) [Volume fraction] 32.5 % Low 42.0 - 54.0 % [facility] Hemoglobin (Bld) [Mass/Vol] 10.4 g/dL Low 14.0 - 18.0 g/dL [facility] IMMATURE GRANULOCYTES ABS AUTO 0.02 [facility] Immature granulocytes/100 WBC (Bld) 0.3 % 0.0 - 0.5 % [facility] Interpretation and review of laboratory results Abnormal [facility] LYMPHOCYTES ABSOLUTE AUTO 1 Low [facility] Lymphocytes/100 WBC (Bld) 14.3 % Low 20.5 - 60.0 % [facility] MCH (RBC) [Entitic mass] 28.8 pg 25.9 - 34.0 pg [facility] MCHC (RBC) [Mass/Vol] 32 g/dL 29.9 - 35.2 g/dL [facility] MCV (RBC) [Entitic vol] 90 fL 80.0 - 94.0 fL [facility] MONOCYTES ABSOLUTE AUTO 0.5 [facility] Monocytes/100 WBC (Bld) 6.6 % 1.7 - 12.0 % [facility] NEUTROPHILS ABSOLUTE AUTO 5.4 [facility] Neutrophils/100 WBC (Bld) 74.1 % 43.0 - 75.0 % [facility] Platelet mean volume (Bld) [Entitic vol] 9.9 fL 9.5 - 13.5 fL [facility] TBH EO # 0.3 [facility] TB PLT 321 [facility] TB RBC 3.61 Low [facility] WBC 7.3 [facility] Office Visiton 03-31-2024 Follow-up visit [id number] Robin Paz 1935 M Date Provider Department Center 03/31/2024 DANGELO KINSEY CARD [facility] Family History Problem Relation Age of Onset Coronary artery disease Paternal Grandmother Family Status - Relation Status Age at Paternal Grandmother Level of Service:28019 CO OFFICE/OUTPATIENT ESTABLISHED MOD MDM 30 MIN Normal [facility] TB UA (CLEAN/CATCH) MICROSC OPIC IF INDICATEon 05-29-2023 BILIRUBIN URINE Negative NEGATIVE [facility] BLOOD URINE TRACE-I NEGATIVE [facility] Clarity (U) CLEAR CLEAR [facility] Color (U) LT. YELLOW YELLOW [facility] GLUCOSE URINE UA Negative NEGATIVE mg/dL [facility] Ketones Ql (U) Negative NEGATIVE mg/dL [facility] Leukocyte esterase Test strip Ql (U) Negative NEGATIVE [facility] NITRITE URINE Negative NEGATIVE [facility] pH (U) 7.5 [pH] 5.0 - 9.0 [facility] PROTEIN URINE Negative NEG/TRACE mg/dL [facility] SPECIFIC GRAVITY URINE 1.015 1.005 - 1.025 [facility] URINE MICROSCOPIC INDICATED YES [facility] UROBILINOGEN URINE 0.2 EU/dL 0.2 - 1.0 EU/dL [facility] ECHOCARDIO M/2D COMPLETEon 0 06-21-2022 ECHOCARDIO M/2D COMPLETE Patient: ROBIN PAZ. Exam Date: 06/21/2022 : 1935 Gender:M Ordering : DR DANGELO JAEGER M.D. Admission #: [id number] Family : JAYLON NICOLAS GUEST RELATIONS REPRESENTATIVE Order #: [id number] CLICK HERE TO VIEW EXAM ECHOCARDIOGRAM REPORT [...] Jaeger M.D. on 06/22/2022 at 13:[address] [facility] ISTAT XRay CREon 03-22-2022 Creatinine [Mass/Vol] 0.8 mg/dL Normal 0.6-1.3 [facility] Comment on above: Result Comment: ER/E SD physician is notified/shown all ISTAT results. Critical values may be confirmed by laboratory testing if deemed necessary by ER attending doctor. Performed By: #### I SCRE #### [address] Point of Care testing , ISTAT GFR ( > 60 Normal [facility] Comment on above: Result Comment: GFR estimated reference range: According to KDOQI guidelines, <60 ml/min/1.73m2 is sufficient to diagnose a patient with chronic kidney disease. PERFORMED BY: [place] [address] PATHOLOGIST [employer] DORINDA FISHER M.D. Performed By: #### I SCRE #### [facility] [address] [place] [address] Point of Care testing , ISTAT GFR (Non- Am > 60 Normal [facility] Comment on above: Performed By: #### I SCRE #### [facility] [address] [place] [address] Point of Care testing , MR prostate wo/w conon 03-22 MR prostate wo/w con [facility] Main [place] [address] [place] [address] MRI Report Signed Patient: Robin Paz MR#: [id number] 76 : 1935 Acct:[id number] Age/Sex: 86 / M ADM Date: 03/22/22 Loc: Room: Type: [facility] Attending Dr: Joy Zhang MD Copies to: [...] recommended. Impression dictated by: Shahbaz Chahal Jr., Eb03/22/2022 12:41 PM Dictation Location: [place] [address] Transcribed By: [facility] 03/22/22 1241 Dictated By: Shahbaz Chahal Jr DO 03/22/22 1228 Signed By: 03/22/[address] [facility] CBC AUTO DIFFon 10-13-2021 BASO # 0.1 103/ul Normal 0.0-0.[address] [facility] Comment on above: Performed By: #### C BC #### [facility] [address] [place] [address] Dr. Jose Saenz Basophils/100 WBC (Bld) 0.8 % Normal 0.2-2.[address] [facility] Comment on above: Performed By: #### C BC #### [facility] [address] [place] [address] Dr. Jose Saenz EO # 0.4 103/ul Normal 0.0-0.[address] [facility] Comment on above: Performed By: #### C BC #### [facility] [address] [place] [address] Dr. Jose Saenz Eosinophils/100 WBC (Bld) 5.8 % Normal 0.9-7.[address] [facility] Comment on above: Performed By: #### C BC #### [facility] [address] [place] [address] Dr. Jose Saenz Erythrocyte distribution width (RBC) [Ratio] 13.2 % Normal 11.0-15.[address] [facility] Comment on above: Performed By: #### C BC #### [facility] [address] [place] [address] Dr. Jose Saenz Hematocrit (Bld) [Volume fraction] 33.3 % Critically low 42.0-54.[address] [facility] Comment on above: Performed By: #### C BC #### [facility] [address] [place] [address] Dr. Jose Saenz Hemoglobin (Bld) [Mass/Vol] 10.6 g/dL Critically low 14.0-18.[address] [facility] Comment on above: Performed By: #### C BC #### [facility] [address] [place] [address] Dr. Jose Saenz IG # 0.03 10e3/ul Normal 0.00-0.[address] [facility] Comment on above: Performed By: #### C BC #### [facility] [address] [place] [address] Dr. Jose Saenz IG % 0.4 % Normal 0.0-0.[address] [facility] Comment on above: Performed By: #### C BC #### [facility] [address] [place] [address] Dr. Jose Saenz LYMPH # 1.4 103/ul Normal 1.2-3.[address] [facility] Comment on above: Performed By: #### C BC #### [facility] [address] [place] [address] Dr. Jose Saenz Lymphocytes/100 WBC (Bld) 18.9 % Critically low 20.5-60.[address] [facility] Comment on above: Performed By: #### C BC #### [facility] [address] [place] [address] Dr. Jose Saenz MANUAL DIFF REQ NO Normal [facility] Comment on above: Performed By: #### C BC #### [facility] [address] [place] [address] Dr. Jose Saenz MCH (RBC) [Entitic mass] 29.2 pg Normal 25.9-34.[address] [facility] Comment on above: Performed By: #### C BC #### [facility] [address] [place] [address] Dr. Jose Saenz MCHC (RBC) [Mass/Vol] 31.8 g/dL Normal 29.9-35.[address] [facility] Comment on above: Performed By: #### C BC #### [facility] [address] [place] [address] Dr. Jose Saenz MCV (RBC) [Entitic vol] 91.7 fL Normal 80.0-94.[address] [facility] Comment on above: Performed By: #### C BC #### [facility] [address] [place] [address] Dr. Jose Saenz MONO # 0.6 103/ul Normal 0.3-0.[address] [facility] Comment on above: Performed By: #### C BC #### [facility] [address] [place] [address] Dr. Jose Saenz Monocytes/100 WBC (Bld) 8.8 % Normal 1.7-12.[address] [facility] Comment on above: Performed By: #### C BC #### [facility] [address] [place] [address] Dr. Jose Saenz NEUT # 4.7 103/ul Normal 1.4-6.[address] [facility] Comment on above: Performed By: #### C BC #### [facility] [address] [place] [address] Dr. Jose Saenz Neutrophils/100 WBC (Bld) 65.3 % Normal 43.0-75.[address] [facility] Comment on above: Performed By: #### C BC #### [facility] [address] [place] [address] Dr. Jose Saenz Platelet mean volume (Bld) [Entitic vol] 11.2 fL Normal 9.5-13.5 [facility] Comment on above: Performed By: #### C BC #### [facility] [address] [place] [address] Dr. Jose Saenz PLT 276 103/ul Normal 150-450 [facility] Comment on above: Performed By: #### C BC #### [facility] [address] [place], [place] [id number] Dr. Jose Saenz RBC 3.63 106/ul Critically low 4.70-6.10 [facility] Comment on above: Performed By: #### C BC #### [facility] [address] [place] [address] Dr. Jose Saenz WBC 7.2 103/ul Normal 4.0-11.[address] [facility] Comment on above: Performed By: #### C BC #### [facility] [address] [place] [address] Dr. Jose Saenz PROF 14(COMP METB)on 022 Albumin [Mass/Vol] 3.3 g/dL Critically low 3.4-5.0 [facility] Comment on above: Performed By: #### C MP #### [facility] [address] [place] [address] Dr. Jose Saenz Albumin/Globulin [Mass ratio] 0.9 {ratio} Normal [facility] Comment on above: Performed By: #### C MP #### [facility] [address] [place] [address] Dr. Jose Saenz ALP [Catalytic activity/Vol] 72 U/L Normal 46-[address] [facility] Comment on above: Performed By: #### C MP #### [facility] [address] [place] [address] Dr. Jose Saenz ALT [Catalytic activity/Vol] 28 U/L Normal 16-[address] [facility] Comment on above: Performed By: #### C MP #### [facility] [address] [place] [address] Dr. Jose Saenz Anion gap [Moles/Vol] 10.0 mmol/L Normal [facility] Comment on above: Performed By: #### C MP #### [facility] [address] [place] [address] Dr. Jose Saenz AST [Catalytic activity/Vol] 21 U/L Normal 15-[address] [facility] Comment on above: Performed By: #### C MP #### [facility] [address] [place] [address] Dr. Jose Saenz Bilirubin [Mass/Vol] 0.4 mg/dL Normal 0.2-1.[address] [facility] Comment on above: Performed By: #### C MP #### [facility] [address] [place] [address] [address] Jose Saenz Calcium [Mass/Vol] 8.8 mg/dL Normal 8.5-10.1 [facility] Comment on above: Performed By: #### C MP #### [facility] [address] [place] [place] [address] [address] Jose Saenz Chloride [Moles/Vol] 102 mmol/L Normal 98-107 [facility] Comment on above: Performed By: #### C MP #### [facility] [address] [place] [place] [address] [address] Jose Saenz CO2 [Moles/Vol] 32.0 mmol/L Normal 21.0-32.0 [facility] Comment on above: Performed By: #### C MP #### [facility] [address] [place] [address] Dr. Jose Saenz Creatinine [Mass/Vol] 0.82 mg/dL Normal 0.70-1.[address] [facility] Comment on above: Performed By: #### C MP #### [facility] [address] [place] [address] [address] Jose Saenz EGFR-AF CITIZEN OF [place] >60 Normal >=60 [facility] Comment on above: Performed By: #### C MP #### [facility] [address] [place] [address] Dr. Jose Saenz EGFR-NON AF CITIZEN OF [place] >60 Normal >=60 [facility] Comment on above: Performed By: #### C MP #### [facility] [address] [place] [address] Dr. Jose Saenz Globulin (S) [Mass/Vol] 3.7 g/dL Normal [facility] Comment on above: Performed By: #### C MP #### [facility] [address] [place] [address] Dr. Jose Saenz Glucose [Mass/Vol] 86 mg/dL Normal 74-106 [facility] Comment on above: Performed By: #### C MP #### [facility] [address] [place] [address] Dr. Jose Saenz Potassium [Moles/Vol] 5.0 mmol/L Normal 3.5-5.1 [facility] Comment on above: Performed By: #### C MP #### [facility] [address] [place] [address] [address] Jose Saenz Protein [Mass/Vol] 7.0 g/dL Normal 6.4-8.2 [facility] Comment on above: Performed By: #### C MP #### [facility] [address] [place] [address] [address] Jose Saenz Sodium [Moles/Vol] 139 mmol/L Normal 136-145 [facility] Comment on above: Performed By: #### C MP #### [facility] [address] [place] [address] [address] Jose Saenz Urea nitrogen [Mass/Vol] 11.0 mg/dL Normal 7.0-18.[address] [facility] Comment on above: Performed By: #### C MP #### [facility] [address] [place] [place] [address] [address] Jose Saenz Urea nitrogen/Creatinine [Mass ratio] 13.4 mg/mg Normal [facility] Comment on above: Performed By: #### C MP #### [facility] [address] [place] [address] [address] Jose Saenz UA RANDOM W/MICROSCOPICon BACTERIA TRACE Abnormal NONE SEEN [facility] Comment on above: Performed By: #### U AMIC ####[facility] [address] [place] [address]Dr. Jose Saenz Bilirubin Ql (U) Negative Normal NEGATIVE [facility] Comment on above: Performed By: #### U AMIC ####[facility] [address] [place] [address]DrFranklin Saenz CAST NONE SEEN Normal NONE SEEN [facility] Comment on above: Performed By: #### U AMIC ####[facility] [address] [place] [address]Dr. Jose Saenz Clarity (U) CLEAR Normal CLEAR [facility] Comment on above: Performed By: #### U AMIC ####[facility] [address] [place] [id number]. Jose Saenz Color (U) LT. YELLOW Normal YELLOW [facility] Comment on above: Performed By: #### U AMIC ####[facility] [address] [place] [id number]. Jose Saenz Crystals LM Nom (Urine sed) NONE SEEN Normal NONE SEEN [facility] Comment on above: Performed By: #### U AMIC ####[facility] [address] [place] [phone]. Jose Saenz Epithelial cells LM Ql (Urine sed) RARE Normal NONE SEEN /RARE [facility] Comment on above: Performed By: #### U AMIC ####[facility] [address] [place] [address]Dr. Jose Saenz Glucose Ql (U) Negative Normal NEGATIVE [facility] Comment on above: Performed By: #### U AMIC ####[facility] [address] [place], [place] [address]Dr. Yiamisha Saenz Hemoglobin Ql (U) Negative Normal NEGATIVE [facility] Comment on above: Performed By: #### U AMIC ####[facility] [address] [place], [place] [address]Dr. Yiamisha Saenz Ketones Ql (U) Negative Normal NEGATIVE [facility] Comment on above: Performed By: #### U AMIC ####[facility] [address] [place] [address]Dr. Yilan Saenz LEUKOCYTES Negative Normal NEGATIVE [facility] Comment on above: Performed By: #### U AMIC ####[facility] [address] [place] [phone]. Yilan Saenz MUCOUS NONE SEEN Normal NONE SEEN [facility] Comment on above: Performed By: #### U AMIC ####[facility] [address] [place] [address]Dr. Yilan Saenz Nitrite Ql (U) Negative Normal NEGATIVE [facility] Comment on above: Performed By: #### U AMIC ####[facility] [address] [place] [phone]. Jose Saenz pH (U) 6.5 [pH] Normal 5-9 [facility] Comment on above: Performed By: #### U AMIC ####[facility] [address] [place] [address]Dr. Jose Saenz RBC NONE SEEN Abnormal 0-2 [facility] Comment on above: Performed By: #### U AMIC ####[facility] [address] [place] [phone]. Jose Saenz SPEC GRAVITY <=1.005 Abnormal 1.005-<=1.025 [facility] Comment on above: Performed By: #### U AMIC ####[facility] [address] [place] [address]DrFranklin Saenz UA PROTEIN Negative Normal NEGATIVE/ TRACE [facility] Comment on above: Performed By: #### U AMIC ####[facility] [address] [place] [phone] Saenz Urobilinogen Qn (U) 0.2 {Sammy'U}/dL Normal 0.2 - 1. 0 [facility] Comment on above: Performed By: #### U AMIC ####[facility] [address] [place] [address]DrFranklin Saenz WBC NONE SEEN Normal NONE SEEN [facility] Comment on above: Performed By: #### U AMIC ####[facility] [address] [place] [phone] Saenz VITAMIN B12on 10-13-2021 Cobalamin (Vitamin B12) [Mass/Vol] 405.0 pg/mL Normal 193.0-986.0 [facility] Comment on above: Performed By: #### V ITB12, PSASC #### [facility] [address] [place] [address] [address] Jose Saenz Covid-19 PCR (CVDTB)on SARS-CoV-2 (COVID-19) RNA DANIKA+probe Ql (Unsp spec) Not detected Normal NOT DETECTED [facility] Comment on above: Result Comment: When [...] for this test is supported by the Central Office Operator Supervisor of Health and Human Service's declaration that [...] longer be used). Performed By: #### C VDTB ####[facility] [address] [place], [place] [address]Dr. Jose Saenz GROUP A STREP CULTUREon S. pyogenes Ag Ql (Unsp spec) Culture Observations: NEGATIVE FOR GROUP A STREPTOCOCCUS. Normal [facility] Comment on above: Performed By: #### G CLIVETCX SSCRN #### [facility] [address] [place] [address] Dr. Jose Saenz STREPT SCREENon 09-17-2021 STREP SCREEN A Negative Normal NEGATIVE [facility] Comment on above: Performed By: #### G RASTCX SSCRN #### [facility] [address] [place] [address] Dr. Jose Saenz CBC AUTO DIFFon 07-26-2021 BASO # 0.1 103/ul Normal 0.0-0.1 [facility] Comment on above: Performed By: #### C BC ####[facility] [address] [place], [place] [address]Dr. Jose Saenz Basophils/100 WBC (Bld) 1.1 % Normal 0.2-2.[address] [facility] Comment on above: Performed By: #### C BC ####[facility] [address] [place] [id number]. Jose Saenz EO # 0.3 103/ul Normal 0.0-0.7 [facility] Comment on above: Performed By: #### C BC ####[facility] [address] [place] [address]Dr. Jose Saenz Eosinophils/100 WBC (Bld) 5.3 % Normal 0.9-7.0 [facility] Comment on above: Performed By: #### C BC ####[facility] [address]qrhp[address] [place] [address]Dr. Jose Saenz Erythrocyte distribution width (RBC) [Ratio] 13.5 % Normal 11.0-15.0 [facility] Comment on above: Performed By: #### C BC ####[facility] [address] [place], [place] [address]Dr. Jose Saenz Hematocrit (Bld) [Volume fraction] 33.9 % Critically low 42.0-54.0 [facility] Comment on above: Performed By: #### C BC ####[facility] [address] [place], [place] [address]Dr. Jose Saenz Hemoglobin (Bld) [Mass/Vol] 11.1 g/dL Critically low 14.0-18.0 [facility] Comment on above: Performed By: #### C BC ####[facility] Qiijxdkzsz[address] [place] [address]Dr. Jose Saenz IG # 0.02 10e3/ul Normal 0.00-0.03 [facility] Comment on above: Performed By: #### C BC ####[facility] Cczwzzdhlf92[address] [place] [address]Dr. Jose Saenz IG % 0.4 % Normal 0.0-0.5 [facility] Comment on above: Performed By: #### C BC ####[facility] X[address] [place], [place] [address]Dr. Jose Saenz LYMPH # 1.5 103/ul Normal 1.2-3.8 [facility] Comment on above: Performed By: #### C BC ####[facility] Mufymcxlbo[address] [place] [id number]. Jose Dany Lymphocytes/100 WBC (Bld) 28.5 % Normal 20.5-60.0 [facility] Comment on above: Performed By: #### C BC ####[facility] Acgdrvicil14[address] [place] [id number]. Jose Dany MANUAL DIFF REQ NO Normal [facility] Comment on above: Performed By: #### C BC ####[facility] Vnwpgheion4745 [place] [address]Dr. Jose Dany MCH (RBC) [Entitic mass] 29.7 pg Normal 25.9-34.0 [facility] Comment on above: Performed By: #### C BC ####[facility] Zghggakpxo2127 [place] [address]Dr. Jose Dany MCHC (RBC) [Mass/Vol] 32.7 g/dL Normal 29.9-35.2 [facility] Comment on above: Performed By: #### C BC ####[facility] Vjuhfxstpc80[address] [place] [address]Dr. Jose Dany MCV (RBC) [Entitic vol] 90.6 fL Normal 80.0-94.0 [facility] Comment on above: Performed By: #### C BC ####[facility] [address] [place], [place] [address]Dr. Jose Saenz MONO # 0.4 103/ul Normal 0.3-0.8 [facility] Comment on above: Performed By: #### C BC ####[facility] Idxpsxsqni7[address] [place] [address]Dr. Silvanaamisha Saenz Monocytes/100 WBC (Bld) 7.2 % Normal 1.7-12.0 [facility] Comment on above: Performed By: #### C BC ####[facility] [address] [place], [place] [address]Dr. Jose Saenz NEUT # 3.0 103/ul Normal 1.4-6.5 [facility] Comment on above: Performed By: #### C BC ####[facility] Zullazduyy8351 [place] [address]Dr. Jose Saenz Neutrophils/100 WBC (Bld) 57.5 % Normal 43.0-75.0 [facility] Comment on above: Performed By: #### C BC ####[facility] Ieaiutoxij[address] [place] [id number] Saenz Platelet mean volume (Bld) [Entitic vol] 9.8 fL Normal 9.5-13.5 [facility] Comment on above: Performed By: #### C BC ####[facility] Elskonprvv[address] [place] [phone]. Jose Saenz PLT 276 103/ul Normal 150-450 [facility] Comment on above: Performed By: #### C BC ####[facility] Wmyiwoaywd75[address] [place] [address]Dr. Jose Saenz RBC 3.74 106/ul Critically low 4.70-6.10 [facility] Comment on above: Performed By: #### C BC ####[facility] Ntoacpmakf87[address] [place] [phone] Saenz WBC 5.3 103/ul Normal 4.0-11.0 [facility] Comment on above: Performed By: #### C BC ####[facility] Lflokofewr8184 [place] [phone] Saenz GLYCOHEMOGLOBIN A1Con 2021 ADA RECOMMENDATION ADA THERAPEUTIC TARGET 6.0 - 7.0 ACTION SUGGESTED > 7.[address] [facility] Comment on above: Performed By: #### A 1C #### [facility] [address] [place] [address] [address] Jose Saenz Glucose [Mass/Vol] 120 mg/dL Normal The [facility] Comment on above: Performed By: #### A 1C #### [facility] [address] [address] [address] Jose Saenz HbA1c (Bld) [Mass fraction] 5.8 % Normal <=6.[address] [facility] Comment on above: Performed By: #### A 1C #### [facility] [address] [place], [place] [address] Dr. Jose Saenz LIPID PROFILEon 07-26-2021 CHOL-HDL RATIO NORM SEE BELOW Normal [facility] Comment on above: Result Comment: 3.3 - 4.4 LOW RISK 4.4 - 7.1 AVERAGE RISK 7.1 - 11.0 MODERATE RISK >11.0 HIGH RISK Performed By: #### C MP, TSH, LIPID ####[facility] Iznglsgesh9818 [place], [place] [address]Zo. Jose Saenz Cholesterol [Mass/Vol] 177 mg/dL Normal <=[address] [facility] Comment on above: Performed By: #### C MP, TSH, LIPID ####[facility] Yrerjqypmj8[address] [place] [phone]. Jose Saenz Cholesterol in HDL [Mass/Vol] 63 mg/dL Critically high 40-[address] [facility] Comment on above: Performed By: #### C MP, TSH, LIPID ####[facility] Bzlitroiiz19[address] [place] [phone]. Jose Saenz Cholesterol in LDL [Mass/Vol] 93.8 mg/dL Normal [facility] Comment on above: Performed By: #### C MP, TSH, LIPID ####[facility] Jviplplrkq9[address] [place] [phone]. Jose Saenz Cholesterol.total/Ch olesterol in HDL [Mass ratio] 2.8 {ratio} Normal [facility] Comment on above: Performed By: #### C MP, TSH, LIPID ####[facility] Npvowdsjjq5987 [place], [place] [address]Ba. Jose Saenz HDL NORMAL > or = 60 mg/dl - LOW CARDIOVASCULAR RISK <40 mg/dl - HIGH CARDIOVASCULAR RISK Normal [facility] Comment on above: Performed By: #### C MP, TSH, LIPID ####[facility] Steldtxheo[address] [place] [phone]. Jose Saenz LDL CALC NORMAL SEE BELOW Normal [facility] Comment on above: Result Comment: <100 mg/dl OPTIMAL 100 - 129 mg/dl NEAR OR ABOVE OPTIMAL 130 - 159 mg/dl BORDERLINE HIGH 160 - 189 mg/dl HIGH >190 mg/dl VERY HIGH Performed By: #### C MP, TSH, LIPID ####[facility] Ywxhzuxpmw6754 [place] [phone]. Jose Saenz Triglyceride [Mass/Vol] 101 mg/dL Normal <=[address] [facility] Comment on above: Performed By: #### C MP, TSH, LIPID ####[facility] Lgfvfanouh4[address] [place] [phone]. Jose Saenz VLDL CALC 20.2 mg/dL Normal [facility] Comment on above: Performed By: #### C MP, TSH, LIPID ####[facility] Zhabdtqebq3763 [place] [address]Dr. Jose Saenz PROF 14(COMP METB)on 022 Albumin [Mass/Vol] 3.3 g/dL Critically low 3.4-5.0 [facility] Comment on above: Performed By: #### C MP, TSH, LIPID ####[facility] Djdxuslbsd1364 [place] [address]Dr. Jose Saenz Albumin/Globulin [Mass ratio] 1.0 {ratio} Normal [facility] Comment on above: Performed By: #### C MP, TSH, LIPID ####[facility] Nmtomgvwvo3850 [place] [address]Dr. Jose Saenz ALP [Catalytic activity/Vol] 80 U/L Normal 46-[address] [facility] Comment on above: Performed By: #### C MP, TSH, LIPID ####[facility] Tqlzbbtsrc1831 [place] [address]Dr. Jose Saenz ALT [Catalytic activity/Vol] 22 U/L Normal 16-[address] [facility] Comment on above: Performed By: #### C MP, TSH, LIPID ####[facility] Hmuktxjpev79[address] [place] [address]Dr. Jose Saenz Anion gap [Moles/Vol] 10.1 mmol/L Normal [facility] Comment on above: Performed By: #### C MP, TSH, LIPID ####[facility] Ovbkzybuqo9603 [place] [address]Dr. Jose Saenz AST [Catalytic activity/Vol] 19 U/L Normal 15-[address] [facility] Comment on above: Performed By: #### C MP, TSH, LIPID ####[facility] Jtuxilejsl8401 [place] [address]Dr. Jose Saenz Bilirubin [Mass/Vol] 0.5 mg/dL Normal 0.2-1.[address] [facility] Comment on above: Performed By: #### C MP, TSH, LIPID ####[facility] Uxwpkqvhxw0077 [place] [address]Dr. Jose Saenz Calcium [Mass/Vol] 8.3 mg/dL Critically low 8.5-10.1 [facility] Comment on above: Performed By: #### C MP, TSH, LIPID ####[facility] Vdepghvfek2245 [place] [address]Dr. Jose Saenz Chloride [Moles/Vol] 104 mmol/L Normal 98-[address] [facility] Comment on above: Performed By: #### C MP, TSH, LIPID ####[facility] Pngdwauuzt1364 [place] [address]Dr. Jose Saenz CO2 [Moles/Vol] 31.5 mmol/L Critically high 22.0-30.[address] [facility] Comment on above: Performed By: #### C MP, TSH, LIPID ####[facility] Quffcxmugq5540 [place] [address]Dr. Jose Saenz Creatinine [Mass/Vol] 0.77 mg/dL Normal 0.66-1.[address] [facility] Comment on above: Performed By: #### C MP, TSH, LIPID ####[facility] Najpktxbnq[address] [place] [address]Dr. Jose Saenz EGFR-AF CITIZEN OF [place] >60 Normal >=60 [facility] Comment on above: Performed By: #### C MP, TSH, LIPID ####[facility] Jgudfsnrza3224 [place] [address]Dr. Jose Saenz EGFR-NON AF CITIZEN OF [place] >60 Normal >=[address] [facility] Comment on above: Performed By: #### C MP, TSH, LIPID ####[facility] Dscdfhzerk3745 [place] [address]Dr. Jose Saenz Globulin (S) [Mass/Vol] 3.2 g/dL Normal [facility] Comment on above: Performed By: #### C MP, TSH, LIPID ####[facility] Bgmchyersv4950 [place] [address]Dr. Jose Saenz Glucose [Mass/Vol] 87 mg/dL Normal 74-106 The [facility] Comment on above: Performed By: #### C MP, TSH, LIPID ####[facility] Qffhqxipgl2854 [place] [address]Dr. Jose Saenz Potassium [Moles/Vol] 4.6 mmol/L Normal 3.4-5.0 [facility] Comment on above: Performed By: #### C MP, TSH, LIPID ####[facility] Gruiqnomcp8680 [place] [address]Dr. Jose Saenz Protein [Mass/Vol] 6.5 g/dL Normal 6.1-8.2 The [facility] Comment on above: Performed By: #### C MP, TSH, LIPID ####[facility] Wstdzyxnhz9691 [place] [address]Dr. Jose Saenz Sodium [Moles/Vol] 141 mmol/L Normal 137-145 The [facility] Comment on above: Performed By: #### C MP, TSH, LIPID ####[facility] Zhwpfdvpga4258 [place] [address]Dr. Jose Saenz Urea nitrogen [Mass/Vol] 9.0 mg/dL Normal 7.0-18.0 [facility] Comment on above: Performed By: #### C MP, TSH, LIPID ####[facility] Nrqzgmxrbh2361 [place] [address]Dr. Jose Saenz Urea nitrogen/Creatinine [Mass ratio] 11.7 mg/mg Normal [facility] Comment on above: Performed By: #### C MP, TSH, LIPID ####[facility] Zbmspoeatz7839 [place] [address]Dr. Silvanalan Saenz TSHon 07-26-2021 TSH 2.304 uIU/mL Normal 0.470-4.680 [facility] Comment on above: Performed By: #### C MP, TSH, LIPID #### [facility] [address] [place] [address] [address] Jose Saenz TSH RANGE SEE BELOW Normal [facility] Comment on above: Result Comment: <0.3 4 UIU/ml HYPERTHYROID 0.34-5.60 UIU/ml EUTHYROID >5.60 UIU/ml HYPOTHYROID Performed By: #### C MP, TSH, LIPID #### [facility] [address] [place] [address] [address] Jose Saenz BASIC METABOLIC PANELon 11-2 Calcium [Mass/Vol] 8.7 mg/dL Normal 8.6-10.3 [facility] Comment on above: Performed By: #### 0 0071 #### [facility] [address] [place] [address], [facility] Chloride [Moles/Vol] 104 mmol/L Normal 98-107 [facility] Comment on above: Performed By: #### 0 0071 #### [facility] [address] [place] [address], [place] CO2 [Moles/Vol] 29 mmol/L Normal 21-31 [facility] Comment on above: Performed By: #### 0 0071 #### [facility] [address] [place] [address], [place] Creatinine [Mass/Vol] 0.69 mg/dL Low 0.70-1.30 The [facility] Comment on above: Performed By: #### 0 0071 #### [facility] [address] [place] [address], [place] GFR/1.73 sq M.predicted among blacks MDRD (S/P/Bld) [Vol rate/Area] mL/min/{1.73_m2} Normal >60 [facility] Comment on above: Result Comment: Calc ulation may not be valid for patients over 70 years Performed By: #### 0 0071 #### [facility] [address] [place] [address], [place] GFR/1.73 sq M.predicted among non-blacks MDRD (S/P/Bld) [Vol rate/Area] mL/min/{1.73_m2} Normal >60 [facility] Comment on above: Result Comment: Calc ulation may not be valid for patients over 70 years Performed By: #### 0 0071 #### [facility] [address] [place] [address], [place] Glucose [Mass/Vol] 97 mg/dL Normal 70-100 The [facility] Comment on above: Performed By: #### 0 0071 #### [facility] [address] [place] [address], [place] Potassium [Moles/Vol] 4.0 mmol/L Normal 3.5-5.1 [facility] Comment on above: Performed By: #### 0 0071 #### [facility] [address] [place] [address], [place] Sodium [Moles/Vol] 139 mmol/L Normal 136-145 [facility] Comment on above: Performed By: #### 0 0071 #### [facility] [address] [place] [address], [place] Urea nitrogen [Mass/Vol] 10 mg/dL Normal 7-25 [facility] Comment on above: Performed By: #### 0 0071 #### [facility] [address] [place] [address], [place] CBC COMPLETE BLOOD COUNTon 05-08-2020 Erythrocyte distribution width (RBC) [Ratio] 13.2 % Normal 11.5-15.0 [facility] Comment on above: Performed By: #### 5 0608 #### [facility] [address] [place] [address], [place] Hematocrit (Bld) [Volume fraction] 34.6 % Low 39.0-50.0 [facility] Comment on above: Performed By: #### 5 0608 #### [facility] [address] [place] [address], [facility] Hemoglobin (Bld) [Mass/Vol] 11.4 g/dL Low 13.0-17.0 [facility] Comment on above: Performed By: #### 5 0608 #### [facility] [address] [facility] [place] [address], [facility] MCH (RBC) [Entitic mass] 29.8 pg Normal 27.0-33.0 [facility] Comment on above: Performed By: #### 5 0608 #### [facility] [address] [facility]. [address] MCHC (RBC) [Mass/Vol] 32.9 g/dL Normal 32.0-35.0 [facility] Comment on above: Performed By: #### 5 0608 #### [facility] [address] [facility] [place] [address], [facility] MCV (RBC) [Entitic vol] 90.3 fL Normal 82.0-98.0 [facility] Comment on above: Performed By: #### 5 0608 #### [facility] [address] [facility]. [address] Nucleated RBC/100 WBC (Bld) [Ratio] 0 % Normal 0-0 [facility] Comment on above: Performed By: #### 5 0608 #### [facility] [address] [facility] [place] [address], [facility] PLAT CNT 310 10*3/uL Normal 150-400 [facility] Comment on above: Performed By: #### 5 0608 #### [facility] [address] [place] [address], [facility] RBC (Bld) [#/Vol] 3.83 10*6/uL Low 4.20-5.70 The [facility] Comment on above: Performed By: #### 5 0608 #### [facility] [address] WBC (Bld) [#/Vol] 6.55 10*3/uL Normal 4.00-10.60 The [facility] Comment on above: Performed By: #### 5 0608 #### [facility] [address] TYPE AND CROSSMATCHon 2020 ABO INTERPRETATION A Normal [facility] Comment on above: Performed By: #### 6 2594 #### [facility] [address] RH INTERPRETATION Positive Normal The [facility] Comment on above: Performed By: #### 6 2594 #### [facility] [address] Vital Signs Date Time Vital Sign Value Performing Clinician Facility 08-26-2024 13:28-0400 Body mass index (BMI) [Ratio] 21.94 kg/m2 Luciana Nicolas RADIOLOGY SPECIALIST Work Phone: [facility] 08-26-2024 13:28-0400 Body temperature 98.1 [degF] Luciana Nicolas RADIOLOGY SPECIALIST Work Phone: [facility] 08-26-2024 13:28-0400 Body weight 73.39 kg Luciana Nicolas RADIOLOGY SPECIALIST Work Phone: [facility] 08-26-2024 13:28-0400 Diastolic blood pressure 66 mm[Hg] Luciana Nicolas RADIOLOGY SPECIALIST Work Phone: [facility] 08-26-2024 13:28-0400 Heart rate 87 /min Luciana Nicolas RADIOLOGY SPECIALIST Work Phone: [facility] 08-26-2024 13:28-0400 Respiratory rate 19 /min Luciana Nicolas RADIOLOGY SPECIALIST Work Phone: [facility] 08-26-2024 13:28-0400 SaO2% (BldA) [Mass fraction] 95 % Luciana Aichholz RADIOLOGY SPECIALIST Work Phone: [facility] 08-26-2024 13:28-0400 Systolic blood pressure 124 mm[Hg] Luciana Aichholz RADIOLOGY SPECIALIST Work Phone: [facility] 05-28-2024 10:57-0500 Body mass index (BMI) [Ratio] 21.94 kg/m2 Luciana Aichholz RADIOLOGY SPECIALIST Work Phone: [facility] 05-28-2024 10:57-0500 Body temperature 97.59 [degF] Luciana Aichholz RADIOLOGY SPECIALIST Work Phone: [facility] 05-28-2024 10:57-0500 Body weight 73.39 kg Luciana Aichholz RADIOLOGY SPECIALIST Work Phone: [facility] 05-28-2024 10:57-0500 Diastolic blood pressure 60 mm[Hg] Luciana Aichholz RADIOLOGY SPECIALIST Work Phone: [facility] 05-28-2024 10:57-0500 Heart rate 65 /min Luciana Aichholz RADIOLOGY SPECIALIST Work Phone: [facility] 05-28-2024 10:57-0500 Respiratory rate 18 /min Luciana Aichholz RADIOLOGY SPECIALIST Work Phone: [facility] 05-28-2024 10:57-0500 SaO2% (BldA) [Mass fraction] 98 % Luciana Aichholz RADIOLOGY SPECIALIST Work Phone: [facility] 05-28-2024 10:57-0500 Systolic blood pressure 108 mm[Hg] Luciana Aichholz RADIOLOGY SPECIALIST Work Phone: [facility] 04-01-2024 13:26-0500 Body height 182.9 cm Luciana Aichholz RADIOLOGY SPECIALIST Work Phone: [facility] 04-01-2024 13:26-0500 Body mass index (BMI) [Ratio] 22.22 kg/m2 Luciana Josemaggiez RADIOLOGY SPECIALIST Work Phone: [facility] 04-01-2024 13:26-0500 Body temperature 98.1 [degF] Luciana Elderz RADIOLOGY SPECIALIST Work Phone: [facility] 04-01-2024 13:26-0500 Body weight 74.3 kg Luciana Josehholz RADIOLOGY SPECIALIST Work Phone: [facility] 04-01-2024 13:26-0500 Diastolic blood pressure 68 mm[Hg] Luciana Elderz RADIOLOGY SPECIALIST Work Phone: [facility] 04-01-2024 13:26-0500 Heart rate 71 /min Luciana Josehholz RADIOLOGY SPECIALIST Work Phone: [facility] 04-01-2024 13:26-0500 Respiratory rate 18 /min Luciana Josehholz RADIOLOGY SPECIALIST Work Phone: [facility] 04-01-2024 13:26-0500 SaO2% (BldA) [Mass fraction] 99 % Luciana Josehholz RADIOLOGY SPECIALIST Work Phone: [facility] 04-01-2024 13:26-0500 Systolic blood pressure 110 mm[Hg] Luciana Josehholz RADIOLOGY SPECIALIST Work Phone: [facility] 12-01-2022 09:09-0400 Blood Pressure Location Joy ZHANG [facility] 12-01-2022 09:09-0400 Diastolic blood pressure 78 mm[Hg] Joy [facility]HANG [facility] 12-01-2022 09:09-0400 Heart rate 74 /min Joy ZHANG [facility] 12-01-2022 09:09-0400 Systolic blood pressure 128 mm[Hg] Joy ZHANG [facility] 06-02-2022 10:56-0500 Blood Pressure Location Joy ZHANG [facility] 06-02-2022 10:56-0500 Diastolic blood pressure 70 mm[Hg] Joy ZHANG [facility] 06-02-2022 10:56-0500 Heart rate 65 /min Joydaisy ZHANG [facility] 06-02-2022 10:56-0500 Respiratory rate 16 /min Joydaisy ZHANG [facility] 06-02-2022 10:56-0500 Systolic blood pressure 114 mm[Hg] Joy ZHANG [facility] 12-12-2021 11:49-0400 Blood Pressure Location Joy ZHANG [facility] 12-12-2021 11:49-0400 Diastolic blood pressure 85 mm[Hg] Joy ZHANG [facility] 12-12-2021 11:49-0400 Heart rate 75 /min Joy ZHANG [facility] 12-12-2021 11:49-0400 Respiratory rate 16 /min Joy ZHANG [facility] 12-12-2021 11:49-0400 Systolic blood pressure 125 mm[Hg] Joy ZHANG [facility] Encounters Encounter Date Encounter Type Care Provider Facility Start: 11-24-2024 ambulatory Joy Peteri ty:[facility] Start: 11-04-2024 End: 11-07-2024 Refill Luciana Aichholz RADIOLOGY SPECIALIST Work Phone: [facility] Comment on above: Iron deficiency anem ia, unspecified iron deficiency anemia type 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); Phantom limb syndrome with pain (HCC) Start: 09-22-2024 End: 09-22-2024 Refill Luciana Aichholz RADIOLOGY SPECIALIST Work Phone: [facility] Comment on above: Phantom pain Start: 08-26-2024 End: 08-26-2024 Telephone encounter Luciana Nicolas RADIOLOGY SPECIALIST Work Phone: [facility] Start: 08-26-2024 End: 08-26-2024 Office outpatient visit 25 minutes Luciana Nicolas RADIOLOGY SPECIALIST Work Phone: [facility] Comment on above: 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) (Primary Dx); Phantom limb syndrome with pain (CMS/HCC); Primary hypertension (CMS/HCC); 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 (CMS/HCC); Elevated PSA, between 10 and less than 20 ng/ml Start: 08-26-2024 End: 08-26-2024 ambulatory LUCIANA ELDERZ Not Available Start: 08-18-2024 End: 08-18-2024 ambulatory Joy ZHANG [place] [place] Start: 08-18-2024 End: 08-18-2024 Lab Drop off Joy ZHANG [facility] Start: 08-18-2024 End: 08-18-2024 ambulatory Joy ZHANG Facility:[facility] Start: 08-11-2024 End: 08-11-2024 Refill Luciana Carlosholz RADIOLOGY SPECIALIST Work Phone: [facility] Comment on above: Phantom pain Start: 06-25-2024 End: 06-25-2024 Refill Luciana Aichholz RADIOLOGY SPECIALIST Work Phone: [facility] Comment on above: Phantom pain Start: 05-30-2024 End: 05-30-2024 Refill Luciana Aichholz RADIOLOGY SPECIALIST Work Phone: [facility] Comment on above: Vitamin D deficiency (Primary Dx); Iron deficiency anemia, unspecified iron deficiency anemia type Start: 05-29-2024 End: 05-29-2024 Refill Luciana Fidencio RADIOLOGY SPECIALIST Work Phone: [facility] Start: 05-28-2024 End: 05-28-2024 Bamboo flowsheet Luciana Nicolas RADIOLOGY SPECIALIST Work Phone: [facility] Start: 05-28-2024 End: 05-28-2024 Bamboo flowsheet Luciana Nicolas RADIOLOGY SPECIALIST Work Phone: [facility] Start: 05-28-2024 End: 05-28-2024 Clinisync Result Encounter Luciana Nicolas NP Work Phone: [facility] External Department Unsolicited Start: 05-28-2024 End: 05-28-2024 Patient encounter procedure Luciana Nicolas RADIOLOGY SPECIALIST Work Phone: [facility] Comment on above: Encounter for subseq uent annual wellness visit (AWV) in Medicare patient (Primary Dx); Pulmonary hypertension, unspecified (CMS/HCC); Crohn's disease of small intestine without complications (CMS/HCC); Phantom limb syndrome with pain (CMS/HCC); Crohn's disease of large intestine without complications (CMS/HCC); 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 (CMS/HCC); 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); 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; Benign prostatic hyperplasia with lower urinary tract symptoms, symptom details unspecified; Elevated PSA, between 10 and less than 20 ng/ml; Vitamin B12 deficiency; Vitamin D deficiency; Primary hypertension (CMS/HCC); Phantom pain Start: 05-28-2024 End: 05-28-2024 ambulatory LUCIANA AICHHOLZ Not Available Start: 05-13-2024 End: 05-13-2024 Refill Luciana Elderz RADIOLOGY SPECIALIST Work Phone: [facility] Comment on above: Phantom pain (Primar y Dx) Start: 04-01-2024 End: 04-01-2024 Bamboo flowsheet Luciana Nicolas RADIOLOGY SPECIALIST Work Phone: [facility] Start: 04-01-2024 End: 04-01-2024 Bamboo flowsheet Luciana Fidencio RADIOLOGY SPECIALIST Work Phone: [facility] Start: 04-01-2024 End: 04-01-2024 Office outpatient visit 25 minutes Luciana Nicolas RADIOLOGY SPECIALIST Work Phone: [facility] Comment on above: Phantom pain (Primar y Dx); Pulmonary hypertension, unspecified (CMS/HCC); Aneurysm of the ascending aorta, without rupture (CMS/HCC); Primary hypertension (CMS/HCC); 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 (CMS/HCC); 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); Elevated PSA, between 10 and less than 20 ng/ml Start: 04-01-2024 End: 04-01-2024 ambulatory LUCIANA AICHHOLZ Not Available Start: 03-31-2024 End: 03-31-2024 ambulatory [facility] Start: 03-17-2024 End: 03-17-2024 Refill Luciana Fidencio RADIOLOGY SPECIALIST Work Phone: [facility] Comment on above: Phantom pain Start: 01-29-2024 End: 01-29-2024 Refill Luciana Fidencio RADIOLOGY SPECIALIST Work Phone: [facility] Comment on above: Phantom pain (Primar y Dx) Start: 12-18-2023 End: 12-18-2023 Refill Filipe Polanco MD Work Phone: [facility] Comment on above: Phantom pain Start: 11-21-2023 End: 11-21-2023 ambulatory LUCIANA AICHHOLZ Not Available Start: 08-17-2023 End: 08-17-2023 Patient encounter procedure Joy ZHANG [facility] Start: 05-29-2023 Clinisync Result Encounter Luciana Gonzalezkimmie MEYER Work Phone: [facility] Unsolicited Start: 05-29-2023 Clinisync Result Encounter Luciana Gonzalezkimmie MEYER Work Phone: [facility] Unsolicited Start: 2023 Bamboo flowsheet Shaikh Clover OROZCO Work Phone: [facility] Start: 2023 Bamboo flowsheet Shaikh Clover OROZCO Work Phone: [facility] Start: 2023 End: 2023 Patient encounter procedure Luciana Fidencio MEYER Work Phone: [facility] Comment on above: Encounter for subseq uent annual wellness visit (AWV) in Medicare patient (Primary Dx); Phantom pain (CMS/HCC); Iron deficiency anemia, unspecified iron deficiency anemia type; Primary hypertension (CMS/HCC); 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 (CMS/HCC); Benign prostatic hyperplasia with lower urinary tract symptoms, symptom details unspecified; Vitamin D deficiency; Vitamin B12 deficiency Start: 12-01-2022 End: 12-01-2022 Patient encounter procedure Joy ZHANG [facility] Start: 06-21-2022 End: 06-22-[address] DANGELO JAEGER Facility: Start: 06-02-2022 End: 06-02-2022 Patient encounter procedure Joy ZHANG [facility] Start: 05-16-2022 End: 05-16-2022 Patient encounter procedure Joy ZHANG [facility] Start: 03-22-2022 End: 03-22-2022 ambulatory Wesley Munozchet Facility:[facility] Start: 02-13-2022 End: 02-14-[address] JOY ZHANG . Facility:[facility] Start: 12-12-2021 End: 12-12-2021 Patient encounter procedure Joy ZHANG [facility] Start: 10-26-2021 ambulatory JAYLON DIAZ JOSENataleeKIMMIE Facil ity:[facility] Start: 10-13-2021 End: 10-14-2021 ambulatory GUEST RELATIONS REPRESENTATIVE LUCIANA FIDENCIO Facility:[facility] Start: 09-17-2021 End: 09-17-2021 ambulatory JAYLON DIAZ FIDENCIO Facility:[facility] Start: 09-16-2021 End: 09-16-2021 Patient encounter procedure Joy ZHANG [facility] Start: 07-26-2021 End: 07-27-2021 ambulatory MONSTER MEGAN Facility:[facility] Start: 07-15-2021 ambulatory MONSTERMAKENZIE GUZMAN Facility :[facility] Start: 03-08-2021 End: 03-09-2021 ambulatory JANA RODRIGUEZ Facility:[facility] Procedures Date Procedure Procedure Detail Performing Clinician Start: 05-28-2024 ALL CBC WITH AUTO DIFF Luciana Nicolas RADIOLOGY SPECIALIST Work Phone: Start: 05-29-2023 TBH UA (CLEAN/CATCH) MICROSCOPIC IF INDICATE Luciana Nicolas RADIOLOGY SPECIALIST Work Phone: Start: 05-16-2022 Transrectal needle b iopsy of prostate Joy ZHANG Start: 02-13-[address] DANGELO JAEGER Comment on above: Performed By: #### P SAD #### [facility] [address] [place] [address] Dr. Jose Saenz Start: 10-13-[address] DANGELO JAEGER Comment on above: Performed By: #### V ITB12, PSASC #### [facility] [address] [address] [address] Jose Saenz Start: 03-08-2021 Antibody screen JANA RODRIGUEZ Comment on above: Performed By: #### 6 [id number] #### [facility] [address] Start: 08-19-2015 Transurethral prostatectomy Joy ZHANG Start: 07-28-2015 Urodynamic studies Patr rocío ZHANG Start: 11-30-2009 Transurethral prostatectomy Joy ZHANG Start: 09-07-2009 Transurethral prostatectomy Joy ZHANG Amputation of lower limb Юлия ZHANG Colonoscopy Joy ZHANG Hernia repair Joy ZHANG Unlisted procedure femur/knee Joy ZHANG Plan of Treatment Date Care Activity Detail Author Start: 06-01-2025 End: 06-01-2025 Patient encounter procedure 06/01/2025 11:00 AM EST Office Visit [facility] [address] [place] [address] Luciana Nicolas NP [address] [place] [phone] [facility] Start: 05-28-2025 Medicare Annual Well ness (AWV) Medicare Annual Wellness (AWV) [facility] Start: 12-15-2024 Influenza vaccination Influenza Vacc ine (#1) [facility] Start: 11-25-2024 End: 11-25-2024 Patient encounter procedure 11/25/2024 1:00 PM EDT Office Visit [facility] [address] [place] [phone] Luciana Nicolas, BETSY [address] [place] [address] [facility] Start: 08-26-2024 End: 08-26-2024 Patient encounter procedure 08/26/2024 1:20 PM EDT Office Visit [facility] [address] [place] [address] Luciana Nicolas, BETSY [address] [place] [address] [facility] Start: 05-28-2024 End: 05-28-2025 25-hydroxyvitamin D3 [Mass/volume] in Serum or Plasma Vitamin D 25 hydroxy Lab Routine Vitamin D deficiency Expected: 05/28/2024 (Approximate), Expires: 05/28/2025 [facility] Comment on above: Expected: 05/28/2024 (Approximate), Expires: 05/28/2025 Start: 05-28-2024 End: 05-28-2025 CBC W Auto Differential panel - Blood CBC and differential Lab Routine 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 (CMS/HCC) Hx of senior living use of blood thinners Vitamin B12 deficiency Expected: 05/28/2024 (Approximate), Expires: 05/28/2025 [facility] Work Phone: Comment on above: Expected: 05/28/2024 (Approximate), Expires: 05/28/2025 Start: 05-28-2024 End: 05-28-2025 Cobalamin (Vitamin B12) [Mass/volume] in Serum or Plasma Vitamin B12 Lab Routine Vitamin B12 deficiency Expected: 05/28/2024 (Approximate), Expires: 05/28/2025 [facility] Comment on above: Expected: 05/28/2024 (Approximate), Expires: 05/28/2025 Start: 05-28-2024 End: 05-28-2025 Comprehensive metabolic 2000 panel - Serum or Plasma Comprehensive metabolic panel Lab Routine Vitamin D deficiency Primary hypertension (CMS/HCC) Expected: 05/28/2024 (Approximate), Expires: 05/28/2025 [facility] Comment on above: Expected: 05/28/2024 (Approximate), Expires: 05/28/2025 Start: 05-28-2024 End: 05-28-2025 Microalbumin/Creatinine panel in random Urine Microalbumin / creatinine, urine ratio Lab Routine Primary hypertension (CMS/HCC) Expected: 05/28/2024 (Approximate), Expires: 05/28/2025 [facility] Comment on above: Expected: 05/28/2024 (Approximate), Expires: 05/28/2025 Start: 05-28-2024 End: 05-28-2025 Prostate specific Ag [Mass/volume] in Serum or Plasma PSA Lab Routine Benign prostatic hyperplasia with lower urinary tract symptoms, symptom details unspecified Elevated PSA, between 10 and less than 20 ng/ml Expected: 05/28/2024 (Approximate), Expires: 05/28/2025 [facility] Comment on above: Expected: 05/28/2024 (Approximate), Expires: 05/28/2025 Start: 05-28-2024 End: 05-28-2025 Urinalysis complete panel - Urine Urinalysis with reflex microscopic (clean catch) Lab Routine Primary hypertension (CMS/HCC) Expected: 05/28/2024 (Approximate), Expires: 05/28/2025 [facility] Comment on above: Expected: 05/28/2024 (Approximate), Expires: 05/28/2025 Start: 05-28-2024 End: 05-28-2024 Patient encounter procedure [facility] Comment on above: 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) (Primary Dx); Pulmonary hypertension, unspecified (CMS/HCC); Crohn's disease of small intestine without complications (CMS/HCC); Phantom limb syndrome with pain (CMS/HCC); Crohn's disease of large intestine without complications (CMS/HCC); 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 (CMS/HCC); 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; Encounter for subsequent annual wellness visit (AWV) in Medicare patient; Benign prostatic hyperplasia with lower urinary tract symptoms, symptom details unspecified; Elevated PSA, between 10 and less than 20 ng/ml; Vitamin B12 deficiency; Vitamin D deficiency; Primary hypertension (CMS/HCC) Start: 2024 Medicare Annual Well ness (AWV) Medicare Annual Wellness (AWV) [facility] Start: 04-01-2024 End: 04-01-2024 Patient encounter procedure 04/01/2024 1:20 PM EST Office Visit [facility] [address] [place] [address] Luciana Nicolas, BETSY [address] [place] [phone] Phantom pain (Primary Dx); Pulmonary hypertension, unspecified (CMS/HCC); Aneurysm of the ascending aorta, without rupture (CMS/HCC); Primary hypertension (CMS/HCC); 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 (CMS/HCC); 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) [facility] Comment on above: Phantom pain (Primar y Dx); Pulmonary hypertension, unspecified (CMS/HCC); Aneurysm of the ascending aorta, without rupture (CMS/HCC); Primary hypertension (CMS/HCC); 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 (CMS/HCC); 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) Start: 02-21-2024 End: 02-21-2024 Patient encounter procedure 02/21/2024 1:00 PM EST Office Visit [facility] [address] [place] [phone] Luciana Nicolas, BETSY [address] [place] [phone] [facility] Start: 02-18-2024 End: 02-18-2024 Patient encounter procedure 02/18/2024 1:20 PM EST Office Visit [facility] [address] [place] [phone] Luciana Nicolas, BETSY [address] [place] [phone] [facility] Start: 12-16-2023 Influenza vaccination Influenza Vacc ine (#1) [facility] Start: 08-20-2023 End: 08-20-2023 Patient encounter procedure 08/20/2023 1:20 PM EDT Office Visit [facility] [address] [place] [address] Luciana Nicolas NP [address] [place] [address] [facility] Start: 2023 End: 2024 25-hydroxyvitamin D3 [Mass/volume] in Serum or Plasma Vitamin D 25 hydroxy Lab Routine Vitamin D deficiency Expected: 2023 (Approximate), Expires: 2024 [facility] Comment on above: Expected: 2023 (Approximate), Expires: 2024 Start: 2023 End: 2024 CBC W Auto Differential panel - Blood CBC and differential Lab Routine Iron deficiency anemia, unspecified iron deficiency anemia type 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 (CMS/HCC) Vitamin B12 deficiency Expected: 2023 (Approximate), Expires: 2024 [facility] Work Phone: Comment on above: Expected: 2023 (Approximate), Expires: 2024 Start: 2023 End: 2024 Cobalamin (Vitamin B12) [Mass/volume] in Serum or Plasma Vitamin B12 Lab Routine Vitamin B12 deficiency Expected: 2023 (Approximate), Expires: 2024 [facility] Comment on above: Expected: 2023 (Approximate), Expires: 2024 Start: 2023 End: 2024 Comprehensive metabolic 2000 panel - Serum or Plasma Comprehensive metabolic panel Lab Routine Iron deficiency anemia, unspecified iron deficiency anemia type Primary hypertension (CMS/HCC) Benign prostatic hyperplasia with lower urinary tract symptoms, symptom details unspecified Vitamin D deficiency Expected: 2023 (Approximate), Expires: 2024 [facility] Comment on above: Expected: 2023 (Approximate), Expires: 2024 Start: 2023 End: 2024 Iron and Iron binding capacity panel - Serum or Plasma Iron level Lab Routine Iron deficiency anemia, unspecified iron deficiency anemia type Expected: 2023 (Approximate), Expires: 2024 [facility] Comment on above: Expected: 2023 (Approximate), Expires: 2024 Start: 2023 End: 2024 Lipid 1996 panel - Serum or Plasma Lipid panel Lab Routine Primary hypertension ([facility]/HCC) Expected: 2023 (Approximate), Expires: 2024 [facility] Comment on above: Expected: 2023 (Approximate), Expires: 2024 Start: 2023 End: 2024 Microalbumin/Creatinine panel in random Urine Microalbumin / creatinine, urine ratio Lab Routine Primary hypertension ([facility]/HCC) Expected: 2023 (Approximate), Expires: 2024 [facility] Comment on above: Expected: 2023 (Approximate), Expires: 2024 Start: 2023 End: 2024 Prostate specific Ag [Mass/volume] in Serum or Plasma PSA Lab Routine Benign prostatic hyperplasia with lower urinary tract symptoms, symptom details unspecified Expected: 2023 (Approximate), Expires: 2024 [facility] Comment on above: Expected: 2023 (Approximate), Expires: 2024 Start: 2023 End: 2024 Urinalysis complete panel - Urine Urinalysis with reflex microscopic (clean catch) Lab Routine Primary hypertension (CMS/HCC) Expected: 2023 (Approximate), Expires: 2024 [facility] Comment on above: Expected: 2023 (Approximate), Expires: 2024 Start: 2023 End: 2023 Patient encounter procedure 2023 10:00 AM EST Office Visit [facility] [address] [place] [phone] Shaikh Galo MD [address] [place] [address] Arrived [facility] Comment on above: Arrived Start: 12-15-2022 Influenza vaccination Influenza Vacc ine (#1) [facility] Start: 01-26-2021 Pneumococcal Vaccine : 65+ Years (2 - PCV) Pneumococcal Vaccine: 65+ Years (2 - PCV) [facility] Start: 1935 Medicare Annual Well ness (AWV) Medicare Annual Wellness (AWV) [facility] Immunizations Immunization Date Immunization Notes Care Provider [facility] 02-02-2024 influenza virus vacc ine, unspecified formulation Joy ZHANG [facility] 02-02-2024 influenza, high dose seasonal, preservative-free Luciana Nicolas RADIOLOGY SPECIALIST Work Phone: [facility] 02-02-2024 SARS-COV-2 (COVID-19 ) vaccine, mRNA, spike protein, LNP, PF, megha-sucrose, 30 mcg/0.3 mL Luciana Nicolas RADIOLOGY SPECIALIST Work Phone: [facility] 01-16-2023 influenza virus vacc ine, unspecified formulation Joy ZHANG [facility] 01-16-2023 Influenza, High-dose Seasonal, Quadrivalent, Preservative Free Luciana Elderz RADIOLOGY SPECIALIST Work Phone: [facility] 01-16-2023 Influenza, Seasonal, Quadrivalent, Adjuvanted Filipe Polanco MD Work Phone: [facility] 01-16-2023 SARS-COV-2 (COVID-19 ) vaccine, mRNA, spike protein, LNP, PF, megha-sucrose, 30 mcg/0.3 mL Filipe Polanco MD Work Phone: [facility] 01-09-2022 influenza virus vacc ine, unspecified formulation Joy ZHANG [facility] 01-09-2022 Influenza, High-dose Seasonal, Quadrivalent, Preservative Free Filipe Polanco MD Work Phone: [facility] 01-09-2022 SARS-CoV-2 (COVID-19 ) [id number] Jyo ZHANG [facility] 03-04-2021 SARS-CoV-2 (COVID-19 ) mRNA BNT-162b2 vax Joy ZHANG [facility] 02-23-2021 influenza virus vacc ine, unspecified formulation Joy ZHANG [facility] 02-23-2021 Influenza, injectabl e, Madin Shy Canine Kidney, preservative free, quadrivalent Shaikh Clover OROZCO Work Phone: [facility] 06-22-2020 SARS-CoV-2 (COVID-19 ) mRNA-1273 vaccine Joy ZHANG [facility] 05-24-2020 SARS-CoV-2 (COVID-19 ) mRNA-1273 vaccine Joy ZHANG [facility] 01-27-2020 influenza virus vacc ine, unspecified formulation Joy ZHANG [facility] 01-27-2020 influenza, injectabl e, quadrivalent, preservative free Shaikh Clover OROZCO Work Phone: [facility] 01-27-2020 pneumococcal polysaccharide vaccine, 23 valent Joy ZHANG [facility] Payers Date Payer Category Payer Private Health Insurance [id number] 2001 Medicare [id number] 1959 Medicare [id number] 1959 Private Health Insurance CLI [id number] Self-pay 1936 Unknown [id number] 2.16.8 [id number] 1936 Unknown [id number] 2.16.84 [id number] 1936 Unknown [id number] 2.16.84 [id number] 1936 Unknown [id number] 2.16.84 [id number] 1936 Unknown [id number] 2.16.84 [id number] 1936 Unknown [id number] 2.16.84 [id number] 1936 Unknown [id number] 2.16.84 [id number] 1936 Unknown [id number] 2.16.84 [id number] 1936 Unknown [id number] 2.16.84 [id number] 1936 Unknown [id number] 2.16.84 [id number] 1936 Unknown [id number] 2.16.84 [id number] 1936 Unknown [id number] 2.16.84 [id number] 1936 Unknown [id number] 2.16.8 [id number] 1936 Unknown [id number] 2.16.8 [id number] 1936 Unknown [id number] 2.16.8 [id number] Unknown [id number] 2.16.8 [id number] Social History Date Type Detail Facility Start: 03-28-2021 End: 04-04-2023 Tobacco smoking status Ex-smoker (finding) [facility] Start: 04-04-2023 End: 2023 Sex Assigned At Male [facility] Tobacco smoking status Never [facility] Tobacco quit 30 years ag o Tobacco Use:. Stopped age 35 Years. [facility] Tobacco smoking status [facility] Start: 04-16-1957 End: 04-16-1982 History of tobacco use Current smoker [facility] Start: 04-16-1957 End: 04-16-1982 History of tobacco use Cigarette Smoker [facility] Start: 04-04-2023 End: 2023 Cigarettes smoked current (pack per day) - Reported 1.5 [facility] Start: 1935 Sex Assigned At Not on file [facility] Start: 2023 End: 08-26-2024 Alcohol intake Ex-drinker (finding) [facility] Within the last year , have you been afraid of your partner or ex-partner? No [facility] Do you belong to any clubs or organizations such as gnosticism groups, unions, fraternal or athletic groups, or [...] 2023 Alcohol Comment coffee 2 cups daily [facility] Start: 12-06-2018 Sex Male (finding) [facility] Functional Status Date Assessment Result Facility 08-17-2023 Functional Status N/A [facility] 12-01-2022 Functional Status N/A [facility] 06-02-2022 Functional Status N/A [facility] 12-12-2021 Functional Status N/A [facility] Clinical Notes 12-12-2021 to 11-04-2024 Telephone Encounter - Tracy Nelson - 11/04/2024 3:52 PM EDTTelephone Encounter - Tracy Nelson - 11/04/2024 3:52 PM EDTHRORY CAMP - 08/26/2024 1:20 PM EDTPatient Instructions Note Date & Type Note Facility 11-04-2024 Telephone encounter Note Patient is asking for a refill of hydrocodone acetaminophen. JEANNETTE [facility] 11-04-2024 Miscellaneous Notes Patient is asking for a refill of hydrocodone acetaminophen. JEANNETTE documented in this encounter [facility] 08-26-2024 History of Present illness Narrative Pt seen dr zhang about 1-2 weeks ago states that everything went well and he goes back in 6m I did call over to dr zhang and left a vm. Images from the original note were not included. Robin Paz is a 89 y.o. male presents with chief complaint of No chief complaint on file. HPI: Here for recheck; BP: no REDDY dizziness, dyspnea, hx afib on anti coagulants no bloody stools or urine Phantom Limb pain: traumatic amputation, takes norco and velasquez, worse at HS,and w colder weather. Shooting/throbbing pain SUBJECTIVE: MEDICATIONS: Current Outpatient Medications Medication Instructions apixaban (Eliquis) 2.5 MG tablet 1 tablet, 2 times daily cholecalciferol (VITAMIN D-3) 50 mcg, Oral, Daily ferrous sulfate 325 mg, Oral, Daily with breakfast, Do not crush, chew, or split. gabapentin (NEURONTIN) 300 mg, Oral, 2 times daily HYDROcodone-acetaminophen (Myrtle) 5-325 MG tablet 1 tablet, Oral, Every 12 hours PRN losartan (COZAAR) 25 mg, Every other day Myrbetriq 50 mg, Daily tamsulosin (Flomax) 0.4 MG 24 hr capsule 1 capsule, Daily ALLERGIES: Allergies Allergen Reactions Penicillins Other Turn stools gritty REVIEW OF SYMPTOMS: Review of Systems Constitutional: Negative for activity change, appetite change and unexpected weight change. HENT: Negative for ear pain, nosebleeds, sneezing, trouble swallowing and voice change. Eyes: Negative for pain, discharge and visual disturbance. Respiratory: Negative for apnea, chest tightness and wheezing. Cardiovascular: Negative for leg swelling. Gastrointestinal: Negative for abdominal distention, blood in stool, constipation and diarrhea. Genitourinary: Negative for decreased urine volume, difficulty urinating, dysuria and hematuria. Musculoskeletal: Positive for arthralgias. Skin: Negative for color change. 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 done again 03/16/2020 RHIZOTOMY Right 05/25/2020 right theurapeutic rhizotomy sympathetic level of L4 and L5 - Dr Kim/VLADIMIR family history is not on file. OBJECTIVE: Visit Vitals BP 124/66 (BP Location: Left arm, Patient Position: Sitting, BP Cuff Size: Adult long) Pulse 87 Temp 98.1 F (Temporal) Resp 19 Wt 161 lb 12.8 oz SpO2 95% BMI 21.94 kg/m Smoking Status Former BSA 1.93 m Physical Exam Vitals and nursing note reviewed. Constitutional: General: He is not in acute distress. Appearance: Normal appearance. He is not ill-appearing or diaphoretic. HENT: Head: Normocephalic. Right Ear: External ear normal. Left Ear: External ear normal. Nose: Nose normal. Mouth/Throat: Mouth: Mucous membranes are moist. Pharynx: Oropharynx is clear. Eyes: Extraocular Movements: Extraocular movements intact. Conjunctiva/sclera: Conjunctivae normal. Neck: Vascular: No carotid bruit. Cardiovascular: Rate and Rhythm: Normal rate and regular rhythm. Pulses: Normal pulses. Heart sounds: Normal heart sounds. No murmur heard. Pulmonary: Effort: Pulmonary effort is normal. Breath sounds: Normal breath sounds. No wheezing or rhonchi. Abdominal: General: Bowel sounds are normal. Palpations: Abdomen is soft. Musculoskeletal: Cervical back: Neck supple. Left lower leg: No edema. Skin: General: Skin is warm and dry. Capillary Refill: Capillary refill takes 2 to 3 seconds. Neurological: General: No focal deficit present. Mental Status: He is alert. Psychiatric: Mood and Affect: Mood normal. Behavior: Behavior normal. Thought Content: Thought content normal. Judgment: Judgment normal. ASSESSMENT AND PLAN: No follow-ups on file. Problem List Items Addressed This Visit 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 (CMS/HCC) Continue with anti coagulation Follows with cardiology Reviewed note from 04/08 Phantom limb syndrome with pain (CMS/HCC) Continue with gabapentin and Myrtle OARRS reviewed Med Agreement signed: 05/28/24 Hypertension (CMS/HCC) Please check blood pressure daily and record DASH diet Limit caffeine Take medication as directed Contact office if chest pain, pressure, dizziness, shortness of breath, swelling legs Recommend slow position changes Current med: losartan Elevated PSA, between 10 and less than 20 ng/ml Established with dr zhang 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) - Primary OARRS reviewed Pain agreement is on file Fu in 3 months Associated Problem(s): Elevated PSA, between 10 and less than 20 ng/ml Established with dr zhang Associated Problem(s): 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) OARRS reviewed Pain agreement is on file Fu in 3 months Associated Problem(s): 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 (CMS/HCC) Continue with anti coagulation Follows with cardiology Reviewed note from 04/08 Associated Problem(s): Hypertension (CMS/HCC) Please check blood pressure daily and record DASH diet Limit caffeine Take medication as directed Contact office if chest pain, pressure, dizziness, shortness of breath, swelling legs Recommend slow position changes Current med: losartan Associated Problem(s): Phantom limb syndrome with pain (CMS/HCC) Continue with gabapentin and Myrtle OARRS reviewed Med Agreement signed: 05/28/24 documented in this encounter [facility] 08-26-2024 History of Present illness Narrative Pt seen dr zhang about 1-2 weeks ago states that everything went well and he goes back in 6m I did call over to dr zhang and left a vm. Images from the original note were not included. Robin Paz is a 89 y.o. male presents with chief complaint of No chief complaint on file. HPI: Here for recheck; BP: no REDDY dizziness, dyspnea, hx afib on anti coagulants no bloody stools or urine Phantom Limb pain: traumatic amputation, takes norco and velasquez, worse at HS,and w colder weather. Shooting/throbbing pain SUBJECTIVE: MEDICATIONS: Current Outpatient Medications Medication Instructions apixaban (Eliquis) 2.5 MG tablet 1 tablet, 2 times daily cholecalciferol (VITAMIN D-3) 50 mcg, Oral, Daily ferrous sulfate 325 mg, Oral, Daily with breakfast, Do not crush, chew, or split. gabapentin (NEURONTIN) 300 mg, Oral, 2 times daily HYDROcodone-acetaminophen (Myrtle) 5-325 MG tablet 1 tablet, Oral, Every 12 hours PRN losartan (COZAAR) 25 mg, Every other day Myrbetriq 50 mg, Daily tamsulosin (Flomax) 0.4 MG 24 hr capsule 1 capsule, Daily ALLERGIES: Allergies Allergen Reactions Penicillins Other Turn stools gritty REVIEW OF SYMPTOMS: Review of Systems Constitutional: Negative for activity change, appetite change and unexpected weight change. HENT: Negative for ear pain, nosebleeds, sneezing, trouble swallowing and voice change. Eyes: Negative for pain, discharge and visual disturbance. Respiratory: Negative for apnea, chest tightness and wheezing. Cardiovascular: Negative for leg swelling. Gastrointestinal: Negative for abdominal distention, blood in stool, constipation and diarrhea. Genitourinary: Negative for decreased urine volume, difficulty urinating, dysuria and hematuria. Musculoskeletal: Positive for arthralgias. Skin: Negative for color change. Neurological: Negative [...] Above knee amputation of left lower extremity ([facility]/HCC) At low risk for fall Benign prostatic hyperplasia Benign prostatic hypertrophy BPH with urinary obstruction Crohn's colitis ([facility]) Elevated PSA, between 10 and less than 20 ng/ml Hard of hearing Hematuria Hypertension ([facility]) Iron deficiency anemia 08/01/2017 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 ([facility]) 2023 Phantom pain 03/26/2023 Right shoulder pain Vitamin B12 deficiency Past Surgical History: Procedure Laterality Date HERNIA REPAIR OTHER SURGICAL HISTORY Right AKA OTHER SURGICAL HISTORY Right 01/20/2020 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 done again 03/16/2020 RHIZOTOMY Right 05/25/2020 right theurapeutic rhizotomy sympathetic level of L4 and L5 - Dr Kim/VLADIMIR family history is not on file. OBJECTIVE: Visit Vitals BP 124/66 (BP Location: Left arm, Patient Position: Sitting, BP Cuff Size: Adult long) Pulse 87 Temp 98.1 F (Temporal) Resp 19 Wt 161 lb 12.8 oz SpO2 95% BMI 21.94 kg/m Smoking Status Former BSA 1.93 m Physical Exam Vitals and nursing note reviewed. Constitutional: General: He is not in acute distress. Appearance: Normal appearance. He is not ill-appearing or diaphoretic. HENT: Head: Normocephalic. Right Ear: External ear normal. Left Ear: External ear normal. Nose: Nose normal. Mouth/Throat: Mouth: Mucous membranes are moist. Pharynx: Oropharynx is clear. Eyes: Extraocular Movements: Extraocular movements intact. Conjunctiva/sclera: Conjunctivae normal. Neck: Vascular: No carotid bruit. Cardiovascular: Rate and Rhythm: Normal rate and regular rhythm. Pulses: Normal pulses. Heart sounds: Normal heart sounds. No murmur heard. Pulmonary: Effort: Pulmonary effort is normal. Breath sounds: Normal breath sounds. No wheezing or rhonchi. Abdominal: General: Bowel sounds are normal. Palpations: Abdomen is soft. Musculoskeletal: Cervical back: Neck supple. Left lower leg: No edema. Skin: General: Skin is warm and dry. Capillary Refill: Capillary refill takes 2 to 3 seconds. Neurological: General: No focal deficit present. Mental Status: He is alert. Psychiatric: Mood and Affect: Mood normal. Behavior: Behavior normal. Thought Content: Thought content normal. Judgment: Judgment normal. ASSESSMENT AND PLAN: No follow-ups on file. Problem List Items Addressed This Visit 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 (CMS/HCC) Continue with anti coagulation Follows with cardiology Reviewed note from 04/08 Phantom limb syndrome with pain (CMS/HCC) Continue with gabapentin and Myrtle OARRS reviewed Med Agreement signed: 05/28/24 Hypertension (CMS/HCC) Please check blood pressure daily and record DASH diet Limit caffeine Take medication as directed Contact office if chest pain, pressure, dizziness, shortness of breath, swelling legs Recommend slow position changes Current med: losartan Elevated PSA, between 10 and less than 20 ng/ml Established with dr zhang 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) - Primary OARRS reviewed Pain agreement is on file Fu in 3 months Associated Problem(s): Elevated PSA, between 10 and less than 20 ng/ml Established with dr zhang Associated Problem(s): 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) OARRS reviewed Pain agreement is on file Fu in 3 months Associated Problem(s): 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 (CMS/HCC) Continue with anti coagulation Follows with cardiology Reviewed note from 04/08 Associated Problem(s): Hypertension (CMS/HCC) Please check blood pressure daily and record DASH diet Limit caffeine Take medication as directed Contact office if chest pain, pressure, dizziness, shortness of breath, swelling legs Recommend slow position changes Current med: losartan Associated Problem(s): Phantom limb syndrome with pain (CMS/HCC) Continue with gabapentin and Myrtle OARRS reviewed Med Agreement signed: 05/28/24 documented in this encounter [facility] 08-26-2024 Telephone encounter Note Call dr taylor's office to get most U[place] office notes please [place] [facility] 08-26-[address] taylor's office to get most UTD office notes please [place] documented in this encounter [facility] 08-18-2024 Note Patient Education Urology Urinary Frequency, Adult Urinary [...] bladder health. You may be told to: ??? Keep a bladder diary. Keep track of: ? What you eat and drink. ? How often you urinate. ? How much you urinate. ??? Follow a bladder training program. This may include: ? Learning to delay going to the bathroom. ? Double urinating, also called voiding. This helps if you are not completely emptying your bladder. ? Scheduled voiding. ??? Do Kegel exercises. Kegel exercises strengthen the muscles that help control urination, which may help the condition. Eating and drinking Follow instructions from your health care provider about eating or drinking restrictions. You may be told to: ??? Avoid caffeine. ??? Drink fewer fluids, especially alcohol. ??? Avoid drinking in the evening. ??? Avoid foods or drinks that may irritate the bladder. These include coffee, tea, soda, artificial sweeteners, citrus, tomato-based foods, and chocolate. ??? Eat foods that help prevent or treat constipation. Constipation can make urinary frequency worse. You may need to take these actions to prevent or treat constipation: ? Drink enough fluid to keep your urine pale yellow. ? Take ffju-ikl-payhiic or prescription medicines. ? Eat foods that are high in fiber, such as beans, whole grains, and fresh fruits and vegetables. ? Limit foods that are high in fat and processed sugars, such as fried or sweet foods. General instructions ??? Take heda-oos-qwkrxrw and prescription medicines only as told by your health care provider. ??? Keep all follow-up visits. This is important. Contact a health care provider if: ??? You start urinating more often. ??? You feel pain or irritation when you urinate. ??? You notice blood in your urine. ??? Your urine looks cloudy. ??? You develop a fever. ??? You begin vomiting. Get help right away if: ??? You are unable to urinate. Summary ??? Urinary frequency means urinating more often than usual. With urinary frequency, you may urinate every 1?2 hours even though you drink a normal amount of fluid and do not have a bladder infection or other bladder condition. ??? Your health care provider may recommend that you keep a bladder diary, follow a bladder training program, or make dietary changes. ??? If told by your health care provider, do Kegel exercises to strengthen the muscles that help control urination. ??? Take mcij-fas-qcojyzb and prescription medicines only as told by your health care provider. ??? Contact a health care provider if your symptoms do not improve or get worse. This information is not intended to replace advice given to you by your health care provider. Make sure you discuss any questions you have with your health care provider. Document Revised: 11/05/2020 Document Reviewed: 11/05/2020 [employer] Patient Education ? 2023 [employer]. [facility] 05-28-2024 History of Present illness Narrative Images from the original note were not included. Robin Paz is a 89 y.o. male presents with chief complaint of No chief complaint on file. HPI: Diet: balanced, gets meals on wheels Activity: age appropriate Mental Health Concerns: none Falls in the last year: none Still driving: yes Do you pay your bills: yes Any hearing problems: hearing aids Any Vision problems: glasses Any Hospitalizations in the last year:none Specialist: Urology, Cardiology, Beau for prosthetic device HCPOA/Living Will: unsure usually takes care of this Concerns: takes care of in hospice d/t parkinson's dz, SUBJECTIVE: MEDICATIONS: Current Outpatient Medications Medication Instructions apixaban (Eliquis) 2.5 MG tablet 1 tablet, 2 times daily gabapentin (NEURONTIN) 300 mg, Oral, 2 times daily HYDROcodone-acetaminophen (Myrtle) 5-325 MG tablet 1 tablet, Oral, Every [...] visual disturbance. Respiratory: Negative for apnea, chest tightness and wheezing. Cardiovascular: Negative for leg swelling. Gastrointestinal: Negative for abdominal distention, blood in stool, constipation and diarrhea. Genitourinary: Negative for decreased urine volume, difficulty urinating, dysuria and hematuria. Musculoskeletal: Phantom limb pain Skin: Negative for color change. Neurological: Negative [...] Above knee amputation of left lower extremity ([facility]) At low risk for fall Benign prostatic hyperplasia Benign prostatic hypertrophy BPH with urinary obstruction Crohn's colitis ([facility]) Elevated PSA, between 10 and less than 20 ng/ml Hard of hearing Hematuria Hypertension ([facility]) Iron deficiency anemia 08/01/2017 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 ([facility]) 2023 Phantom pain 03/26/2023 Right shoulder pain Vitamin B12 deficiency Past Surgical History: Procedure Laterality Date HERNIA REPAIR OTHER SURGICAL HISTORY Right AKA OTHER SURGICAL HISTORY Right 01/20/2020 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 done again 03/16/2020 RHIZOTOMY Right 05/25/2020 right theurapeutic rhizotomy sympathetic level of L4 and L5 - Dr Kim/VLADIM[facility] family history is not on file. OBJECTIVE: Visit Vitals BP 108/60 (BP Location: Left arm, Patient Position: Sitting, BP Cuff Size: Adult long) Pulse 65 Temp 97.6 F (Temporal) Resp 18 Wt 161 lb 12.8 oz SpO2 98% BMI 21.94 kg/m Smoking Status Former BSA 1.93 m Physical Exam Vitals and nursing note reviewed. Constitutional: Appearance: Normal appearance. HENT: Head: Normocephalic. Right Ear: External ear normal. Left Ear: External ear normal. Nose: Nose normal. Mouth/Throat: Mouth: Mucous membranes are moist. Pharynx: Oropharynx is clear. Eyes: Extraocular Movements: Extraocular movements intact. Conjunctiva/sclera: Conjunctivae normal. Neck: Vascular: No carotid bruit. Cardiovascular: Rate and Rhythm: Normal rate and regular rhythm. Pulses: Normal pulses. Heart sounds: Normal heart sounds. Pulmonary: Effort: Pulmonary effort is normal. No respiratory distress. Breath sounds: Normal breath sounds. No stridor. No wheezing. Abdominal: General: Bowel sounds are normal. There is no distension. Palpations: Abdomen is soft. There is no mass. Tenderness: There is no abdominal tenderness. Musculoskeletal: Cervical back: Neck supple. Left lower leg: No edema. Comments: Prosthesis to RLE Lymphadenopathy: Cervical: No cervical adenopathy. Skin: General: Skin is warm and dry. Capillary Refill: Capillary refill takes 2 to 3 seconds. Neurological: General: No focal deficit present. Mental Status: He is alert. Psychiatric: Mood and Affect: Mood normal. Behavior: Behavior normal. Thought Content: Thought content normal. Judgment: Judgment normal. ASSESSMENT AND PLAN: Follow up in about 3 months (around 08/25/2024) for Recheck. Problem List Items Addressed This Visit 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 (CMS/HCC) Continue with anti coagulation Follows with cardiology Reviewed note from 04/08 Relevant Orders CBC and differential Crohn's disease of small intestine without complications (CMS/HCC) No current sxs Phantom limb syndrome with pain (CMS/HCC) Continue with gabapentin and Myrtle OARRS reviewed Med Agreement signed: 05/28/24 Vitamin D deficiency Check lab Relevant Orders Comprehensive metabolic panel Vitamin D 25 hydroxy Hypertension (CMS/HCC) Please check blood pressure daily and record DASH diet Limit caffeine Take medication as directed Contact office if chest pain, pressure, dizziness, shortness of breath, swelling legs Recommend slow position changes Current med: losartan Relevant Orders Comprehensive metabolic panel Urinalysis with reflex microscopic (clean catch) Microalbumin / creatinine, urine ratio Elevated PSA, between 10 and less than 20 ng/ml Established with dr zhang Relevant Orders PSA Benign prostatic hyperplasia Continue with dr zhang Relevant Orders PSA Vitamin B12 deficiency Takes supplement daily Relevant Orders CBC and differential Vitamin B12 Encounter for subsequent annual wellness visit (AWV) in Medicare patient - Primary Reviewed Ht/Wt/BMI Recommend eye exam yearly Recommend dental exams twice a year Exercises is recommended most days of the week (appropriate as chronic conditions allow) Follow up yearly and prn 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) Crohn's disease of large intestine without complications (CMS/HCC) No current sxs Pulmonary hypertension, unspecified (CMS/HCC) Per ECHO findings 03/09 Hx of senior living use of blood thinners Check cbc yearly and prn Monitor for s/s GI bleeding Relevant Orders CBC and differential Other Visit Diagnoses Phantom pain Relevant Medications gabapentin (Neurontin) 300 MG capsule HYDROcodone-acetaminophen (Myrtle) 5-325 MG tablet Associated Problem(s): Vitamin D deficiency Check lab Associated Problem(s): Vitamin B12 deficiency Takes supplement daily Associated Problem(s): Elevated PSA, between 10 and less than 20 ng/ml Established with dr zhang Associated Problem(s): Benign prostatic hyperplasia Continue with dr zhang Associated Problem(s): Encounter for subsequent annual wellness visit (AWV) in Medicare patient Reviewed Ht/Wt/BMI Recommend eye exam yearly Recommend dental exams twice a year Exercises is recommended most days of the week (appropriate as chronic conditions allow) Follow up yearly and prn Associated Problem(s): Hx of senior living use of blood thinners Check cbc yearly and prn Monitor for s/s GI bleeding Associated Problem(s): Crohn's disease of small intestine without complications (CMS/HCC) No current sxs Associated Problem(s): Crohn's disease of large intestine without complications (CMS/HCC) No current sxs Associated Problem(s): Pulmonary hypertension, unspecified (CMS/HCC) Per ECHO findings 03/09 Associated Problem(s): 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 (CMS/HCC) Continue with anti coagulation Follows with cardiology Reviewed note from 04/08 Associated Problem(s): Hypertension (CMS/HCC) Please check blood pressure daily and record DASH diet Limit caffeine Take medication as directed Contact office if chest pain, pressure, dizziness, shortness of breath, swelling legs Recommend slow position changes Current med: losartan Associated Problem(s): Phantom limb syndrome with pain (CMS/HCC) Continue with gabapentin and Myrtle OARRS reviewed Med Agreement signed: 05/28/24 documented in this encounter [facility] 05-28-2024 Instructions Luciana Nicolas NP - 05/28/2024 11:00 AM EST Get labs completed documented in this encounter [facility] 04-01-2024 History of Present illness Narrative Associated [...] received at pharmacy He does follow with [facility] cardiology for a fib, and had recent visit with them as well recently, reviewed labs SUBJECTIVE: MEDICATIONS: Current Outpatient Medications Medication Instructions apixaban (Eliquis) 2.5 MG tablet 1 tablet, 2 times daily cyanocobalamin (Vitamin B-12) 1000 MCG tablet 1 tablet, Daily RT gabapentin (NEURONTIN) 300 mg, Oral, 2 times daily HYDROcodone-acetaminophen (Myrtle) 5-325 MG tablet 1 tablet, Oral, Every [...] 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 (CMS/HCC) 2023 Phantom pain 03/26/2023 Right shoulder pain Vitamin B12 deficiency Past Surgical History: Procedure Laterality Date HERNIA REPAIR OTHER SURGICAL HISTORY Right AKA OTHER SURGICAL HISTORY Right 01/20/2020 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 done again 03/16/2020 RHIZOTOMY Right 05/25/2020 right theurapeutic rhizotomy sympathetic level of L4 and L5 - Dr Kim/[facility] family history is not on file. OBJECTIVE: [...] 08/31/23 OARRS reviewed documented in this encounter [facility] 04-01-2024 Instructions Luciana Nicolas NP - 04/01/2024 1:20 PM EST Follow up elizabeth early 06/10, this will be a medicare wellness appoitment Check at [facility] for pain pill documented in this encounter [facility] 03-31-2024 Note [place] Cardiology - 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 fib and RVR. He [...] Other (See Comments) (more content not included)... [facility] 03-17-2024 Telephone encounter Note Pt does need a fu appt. With getting pain meds, he does need to be seen every 3 months, he has cancelled a couple appts in February. I am sure with his 's medical it has been difficult, but please schedule him in [place] [facility] 03-17-2024 Miscellaneous Notes Pt does need a fu appt. With getting pain meds, he does need to be seen every 3 months, he has cancelled a couple appts in February. I am sure with his 's medical it has been difficult, but please schedule him in [place] documented in this encounter [facility] 08-17-2023 Hospital Discharge instructions Patient Education [...] urethra. Follow these instructions at home: Take abvj-jej-loaqgty and prescription medicines only as told by [...] provider. Document Revised: 10/19/2021 Document Reviewed: 10/19/2021 [employer] Patient Education 2022 [employer]. Follow Up Care 06/11/2023 11:07:33 With:MILKA OROZCO, Joy Gutierrez, URL Address: [address] [place] [id number] When: Unknown [facility] 2023 History of Present illness Narrative [...] 300 mg, Oral, 2 times daily HYDROcodone-acetaminophen (Myrtle) 5-325 MG tablet 1 tablet, Oral, 2 [...] Above knee amputation of left lower extremity ([facility]) At low risk for fall Benign prostatic hyperplasia Benign prostatic hypertrophy BPH with urinary obstruction Crohn's colitis ([facility]) Elevated PSA, between 10 and less than 20 ng/ml Hard of hearing Hematuria Hypertension ([facility]) Iron deficiency anemia 08/01/2017 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 ([facility]) 2023 Phantom pain ([facility]) 03/26/2023 Right shoulder pain Vitamin B12 deficiency Past Surgical History: Procedure Laterality Date HERNIA REPAIR OTHER SURGICAL HISTORY Right AKA OTHER SURGICAL HISTORY Right 01/20/2020 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 Follow these instructions at home: Take poex-tfo-lwxwnur and prescription medicines only as told by [...] provider. Document Revised: 10/19/2021 Document Reviewed: 10/19/2021 An[employer] Patient Education 2022 [employer]. Follow Up Care 06/02/2022 11:46:25 With:MILKA OROZCO, Joy Gutierrez, URL Address: [address] [place] [id number]- When: Unknown [facility] 06-02-2022 Hospital Discharge instructions Patient Education [...] one of these risk factors: ?Being of -Malaysian descent. ?Having a family history of prostate [...] you: Are older than age 55. Are -Malaysian. Have a father, brother, or uncle who [...] 01/11/2018 Document Revised: 03/15/2018 Document Reviewed: 01/11/2018 ElseOnyvax Patient Education 2020 [employer]. Follow Up Care 05/01/2022 08:18:24 With:MILKA OROZCO, Joy Gutierrez, URL Address: [address] [place] [address] [place] [address]- When: Unknown [facility] 05-16-2022 Hospital Discharge instructions Patient Education [...] for your post-operative appointment in 1-2 weeks [phone] or [phone] Follow Up Care 05/01/2022 08:13:35 With:Joy ZHANG Address: [facility] [address] , [place] [address]- Business (1) When: Unknown Comments:Keep scheduled appointment [facility] 12-12-2021 Hospital Discharge instructions Patient Education [...] one of these risk factors: ?Being of -Malaysian descent. ?Having a family history of prostate [...] you: Are older than age 55. Are -Malaysian. Have a father, brother, or uncle who [...] 01/11/2018 Document Revised: 03/15/2018 Document Reviewed: 01/11/2018 Elsevier Patient Education 2020 [employer] Follow Up Care 12/10/2020 12:14:36 With:Joy ZHANG MD, URL Address: [address] [place] [id number]- When:Within 2 Month(s) [facility] Evaluation + Plan note Future Appointments Appointment Date:12/12/2021 11:15:00 AM Scheduled Provider:Joy ZHANG MD Location:[facility] Appointment Type:URO Office Visit Diagnostic Tests PendingUroVysion Fish and Urine Cyto ([facility]) 09/16/21 [facility] Evaluation + Plan note Future Appointments Appointment Date:02/13/2022 11:15:00 AM Scheduled Provider:Joy ZHANG MD Location:[facility] Appointment Type:URO Office Visit Diagnostic Tests PendingPSA Total 12/29/21 [facility] Evaluation + Plan note Future Appointments Appointment Date:06/02/2022 11:00:00 AM Scheduled Provider:Joy ZHANG MD Location:[facility] Appointment Type:URO Office Visit Diagnostic Tests PendingProstate Histology ([facility]) 05/16/22 [facility] Evaluation + Plan note Future Appointments Appointment Date:12/01/2022 08:45:00 AM Scheduled Provider:Joy ZHANG MD [facility] App[facility] Type:URO Office Visit Diagnostic Tests PendingPSA Total 10/14/22 [facility] Evaluation + Plan note Future Appointments Appointment Date:06/11/2023 09:45:00 AM Scheduled Provider:Joy ZHANG MD [facility] Appoint[facility] Type:URO Office Visit [facility] Evaluation + Plan note Future Appointments Appointment Date:08/18/2024 10:30:00 AM Scheduled Provider:Joy ZHANG MD [facility] Appointment Type:URO Office Visit [facility] Evaluation + Plan note Future Appointments Appointment Date:11/24/2024 12:45:00 PM Scheduled Provider:Joy ZHANG MD Location:[facility] Appointment Type:URO Office Visit Diagnostic Tests PendingUrine Cytology ([facility]) 08/18/24 [facility] Evaluation note Diagnosis Encounter for subsequent annual [...] Phantom limb (syndrome) documented in this encounter [facility]* Diagnosis Phantom pain- Primary Phantom [...] than 20 ng/ml documented in this encounter [facility] note* Diagnosis Phantom pain Phantom limb (syndrome) documented in this encounter [facility]Evaluation note* Diagnosis Phantom pain- Primary Phantom [...] Phantom limb (syndrome) documented in this encounter [facility] note* Diagnosis Phantom pain- Primary Phantom [...] between 10 and less than 20 ng/ml Encounter for subsequent annual wellness visit (AWV) in Medicare patient- Primary Pulmonary hypertension, unspecified (CMS/HCC) Crohn's disease of small intestine without complications (CMS/HCC) Phantom limb syndrome with pain (CMS/HCC) Phantom limb (syndrome) Crohn's disease of large intestine without complications (CMS/HCC) 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 (CMS/HCC) Atrial fibrillation 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) 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 Encounter for long-term (current) use of anticoagulants Benign prostatic hyperplasia with lower urinary tract symptoms, symptom details unspecified Elevated PSA, between 10 and less than 20 ng/ml Vitamin B12 deficiency Other B-complex deficiencies Vitamin D deficiency Primary hypertension (CMS/HCC) Unspecified essential hypertension Phantom pain Phantom limb (syndrome) documented in [...] between 10 and less than 20 ng/ml Encounter for subsequent annual wellness visit (AWV) in Medicare patient- Primary Pulmonary hypertension, unspecified (CMS/HCC) Crohn's disease of small intestine without complications (CMS/HCC) Phantom limb syndrome with pain (CMS/HCC) Phantom limb (syndrome) Crohn's disease of large intestine without complications (CMS/HCC) 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 (CMS/HCC) Atrial fibrillation 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) Hx of senior living use of blood thinners Encounter for long-term (current) use of anticoagulants Benign prostatic hyperplasia with lower urinary tract symptoms, symptom details unspecified Elevated PSA, between 10 and less than 20 ng/ml Vitamin B12 deficiency Other B-complex deficiencies Vitamin D deficiency Primary hypertension (CMS/HCC) Unspecified essential hypertension Phantom pain Phantom limb (syndrome) Vitamin D deficiency- Primary Iron deficiency anemia, unspecified iron deficiency anemia type documented in this encounter [facility]* [...] between 10 and less than 20 ng/ml Encounter for subsequent annual wellness visit (AWV) in Medicare patient- Primary Pulmonary hypertension, unspecified (CMS/HCC) Crohn's disease of small intestine without complications (CMS/HCC) Phantom limb syndrome with pain (CMS/HCC) Phantom limb (syndrome) Crohn's disease of large intestine without complications (CMS/HCC) 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 (CMS/HCC) Atrial fibrillation 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) 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 Encounter for long-term (current) use of anticoagulants Benign prostatic hyperplasia with lower urinary tract symptoms, symptom details unspecified Elevated PSA, between 10 and less than 20 ng/ml Vitamin B12 deficiency Other B-complex deficiencies Vitamin D deficiency Primary hypertension (CMS/HCC) Unspecified essential hypertension Phantom pain Phantom limb (syndrome) Phantom pain Phantom limb (syndrome) documented in [...] between 10 and less than 20 ng/ml Encounter for subsequent annual wellness visit (AWV) in Medicare patient- Primary Pulmonary hypertension, unspecified (CMS/HCC) Crohn's disease of small intestine without complications (CMS/HCC) Phantom limb syndrome with pain (CMS/HCC) Phantom limb (syndrome) Crohn's disease of large intestine without complications (CMS/HCC) 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 (CMS/HCC) Atrial fibrillation 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) Hx of senior living use of blood thinners Encounter for long-term (current) use of anticoagulants Benign prostatic hyperplasia with lower urinary tract symptoms, symptom details unspecified Elevated PSA, between 10 and less than 20 ng/ml Vitamin B12 deficiency Other B-complex deficiencies Vitamin D deficiency Primary hypertension (CMS/HCC) Unspecified essential hypertension Phantom pain Phantom limb (syndrome) Phantom pain Phantom limb (syndrome) documented in [...] between 10 and less than 20 ng/ml Encounter for subsequent annual wellness visit (AWV) in Medicare patient- Primary Pulmonary hypertension, unspecified (CMS/HCC) Crohn's disease of small intestine without complications (CMS/HCC) Phantom limb syndrome with pain (CMS/HCC) Phantom limb (syndrome) Crohn's disease of large intestine without complications (CMS/HCC) 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 (CMS/HCC) Atrial fibrillation 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) 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 Encounter for long-term (current) use of anticoagulants Benign prostatic hyperplasia with lower urinary tract symptoms, symptom details unspecified Elevated PSA, between 10 and less than 20 ng/ml Vitamin B12 deficiency Other B-complex deficiencies Vitamin D deficiency Primary hypertension (CMS/HCC) Unspecified essential hypertension Phantom pain Phantom limb (syndrome) 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)- Primary Phantom limb syndrome with pain (CMS/HCC) Phantom limb (syndrome) Primary hypertension (CMS/HCC) Unspecified essential hypertension 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 (CMS/HCC) Atrial fibrillation Elevated PSA, between 10 and less than 20 ng/ml documented in [facility] encounter [facility]* [...] between 10 and less than 20 ng/ml Encounter for subsequent annual wellness visit (AWV) in Medicare patient- Primary Pulmonary hypertension, unspecified (CMS/HCC) Crohn's disease of small intestine without complications (CMS/HCC) Phantom limb syndrome with pain (CMS/HCC) Phantom limb (syndrome) Crohn's disease of large intestine without complications (CMS/HCC) 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 (CMS/HCC) Atrial fibrillation 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) 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 Encounter for long-term (current) use of anticoagulants Benign prostatic hyperplasia with lower urinary tract symptoms, symptom details unspecified Elevated PSA, between 10 and less than 20 ng/ml Vitamin B12 deficiency Other B-complex deficiencies Vitamin D deficiency Primary hypertension (CMS/HCC) Unspecified essential hypertension Phantom pain Phantom limb (syndrome) 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)- Primary Phantom limb syndrome with pain (CMS/HCC) Phantom limb (syndrome) Primary hypertension (CMS/HCC) Unspecified essential hypertension 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 (CMS/HCC) Atrial fibrillation Elevated PSA, between 10 and less than 20 ng/ml documented in this encounter [facility] HealthcareEvaluation note* Diagnosis Phantom pain- Primary Phantom [...] between 10 and less than 20 ng/ml Encounter for subsequent annual wellness visit (AWV) in Medicare patient- Primary Pulmonary hypertension, unspecified (CMS/HCC) Crohn's disease of small intestine without complications (CMS/HCC) Phantom limb syndrome with pain (CMS/HCC) Phantom limb (syndrome) Crohn's disease of large intestine without complications (CMS/HCC) 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 (CMS/HCC) Atrial fibrillation 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) Hx of senior living use of blood thinners Encounter for long-term (current) use of anticoagulants Benign prostatic hyperplasia with lower urinary tract symptoms, symptom details unspecified Elevated PSA, between 10 and less than 20 ng/ml Vitamin B12 deficiency Other B-complex deficiencies Vitamin D deficiency Primary hypertension (CMS/HCC) Unspecified essential hypertension Phantom pain Phantom limb (syndrome) 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)- Primary Phantom limb syndrome with pain (CMS/HCC) Phantom limb (syndrome) Primary hypertension (CMS/HCC) Unspecified essential hypertension 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 (CMS/HCC) Atrial fibrillation Elevated PSA, between 10 and less than 20 ng/ml Phantom pain Phantom limb (syndrome) documented in this encounter [facility] HealthcareEvaluation note* Diagnosis Phantom pain- Primary Phantom limb (syndrome) Encounter for subsequent annual wellness visit (AWV) in Medicare patient- Primary Phantom pain Phantom limb (syndrome) Iron deficiency anemia, unspecified iron deficiency anemia type Primary hypertension Unspecified essential hypertension 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 (HCC) Atrial fibrillation Benign prostatic hyperplasia with lower urinary tract symptoms, symptom details unspecified Vitamin D deficiency Vitamin B12 deficiency Other B-complex deficiencies Colon cancer screening Special screening for malignant neoplasms, colon Phantom pain- Primary Phantom limb (syndrome) 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 (HCC) Atrial fibrillation Primary hypertension Unspecified essential hypertension Crohn's disease of small intestine without complication (HCC) 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) Phantom limb pain (HCC) Phantom limb (syndrome) Iron deficiency anemia, unspecified iron deficiency anemia type Phantom pain- Primary Phantom limb (syndrome) Iron deficiency anemia, unspecified iron deficiency anemia type 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) Primary hypertension Unspecified essential hypertension 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 (HCC) Atrial fibrillation Phantom pain- Primary Phantom limb (syndrome) Pulmonary hypertension, unspecified (HCC) Aneurysm of the ascending aorta, without rupture Primary hypertension Unspecified essential hypertension 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 (HCC) Atrial fibrillation 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) Elevated PSA, between 10 and less than 20 ng/ml Encounter for subsequent annual wellness visit (AWV) in Medicare patient- Primary Pulmonary hypertension, unspecified (HCC) Crohn's disease of small intestine without complications (HCC) Phantom limb syndrome with pain (HCC) Phantom limb (syndrome) Crohn's disease of large intestine without complications (HCC) 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 (HCC) Atrial fibrillation 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) 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 Encounter for long-term (current) use of anticoagulants Benign prostatic hyperplasia with lower urinary tract symptoms, symptom details unspecified Elevated PSA, between 10 and less than 20 ng/ml Vitamin B12 deficiency Other B-complex deficiencies Vitamin D deficiency Primary hypertension Unspecified essential hypertension Phantom pain Phantom limb (syndrome) 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)- Primary Phantom limb syndrome with pain (HCC) Phantom limb (syndrome) Primary hypertension Unspecified essential hypertension 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 (HCC) Atrial fibrillation Elevated PSA, between 10 and less than 20 ng/ml Iron deficiency anemia, unspecified iron deficiency anemia type documented in this encounter [facility] HealthcareEvaluation note* Diagnosis Phantom pain- Primary Phantom limb (syndrome) Encounter for subsequent annual wellness visit (AWV) in Medicare patient- Primary Phantom pain Phantom limb (syndrome) Iron deficiency anemia, unspecified iron deficiency anemia type Primary hypertension Unspecified essential hypertension 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 (HCC) Atrial fibrillation Benign prostatic hyperplasia with lower urinary tract symptoms, symptom details unspecified Vitamin D deficiency Vitamin B12 deficiency Other B-complex deficiencies Colon cancer screening Special screening for malignant neoplasms, colon Phantom pain- Primary Phantom limb (syndrome) 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 (HCC) Atrial fibrillation Primary hypertension Unspecified essential hypertension Crohn's disease of small intestine without complication (HCC) 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) Phantom limb pain (HCC) Phantom limb (syndrome) Iron deficiency anemia, unspecified iron deficiency anemia type Phantom pain- Primary Phantom limb (syndrome) Iron deficiency anemia, unspecified iron deficiency anemia type 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) Primary hypertension Unspecified essential hypertension 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 (HCC) Atrial fibrillation Phantom pain- Primary Phantom limb (syndrome) Pulmonary hypertension, unspecified (HCC) Aneurysm of the ascending aorta, without rupture Primary hypertension Unspecified essential hypertension 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 (HCC) Atrial fibrillation 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) Elevated PSA, between 10 and less than 20 ng/ml Encounter for subsequent annual wellness visit (AWV) in Medicare patient- Primary Pulmonary hypertension, unspecified (HCC) Crohn's disease of small intestine without complications (HCC) Phantom limb syndrome with pain (HCC) Phantom limb (syndrome) Crohn's disease of large intestine without complications (HCC) 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 (HCC) Atrial fibrillation 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) Hx of senior living use of blood thinners Encounter for long-term (current) use of anticoagulants Benign prostatic hyperplasia with lower urinary tract symptoms, symptom details unspecified Elevated PSA, between 10 and less than 20 ng/ml Vitamin B12 deficiency Other B-complex deficiencies Vitamin D deficiency Primary hypertension Unspecified essential hypertension Phantom pain Phantom limb (syndrome) 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)- Primary Phantom limb syndrome with pain (HCC) Phantom limb (syndrome) Primary hypertension Unspecified essential hypertension 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 (HCC) Atrial fibrillation Elevated PSA, between 10 and less than 20 ng/ml 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)- Primary Phantom limb syndrome with pain (HCC) Phantom limb (syndrome) [facility] Narrative No data available for this section [facility] Hospital Discharge instructions No data available for this section [facility] progress note No data available for this section [facility] Summary Purpose Family History No Family History Records FoundNo Family History Records FoundNo Family History Records Found No data available for this section No Family History Records Found No data available [...] and content) DATE CREATED AUTHOR 03/15/2021 [facility] DATE CREATED AUTHOR AUTHOR'S ORGANIZ ATION 04/07/2022 [facility] DATE CREATED AUTHOR AUTHOR'S ORGANIZ ATION 06/24/2022 [facility] DATE CREATED AUTHOR AUTHOR'S ORGANIZ ATION 04/02/2024 [facility] DATE CREATED AUTHOR AUTHOR'S ORGANIZ ATION 08/23/2024 [facility] DATE CREATED AUTHOR AUTHOR'S ORGANIZ ATION 08/27/2024 [facility] DATE CREATED AUTHOR AUTHOR'S ORGANIZ ATION 11/22/2024 [facility] Care Team (unrecognized sect ion and content) Forecast Analyst Relationship Specialty Start Date End Date Filipe Polanco MD PCP - General Family Medicine 10/06/22 Forecast Analyst Relationship Specialty Start Date End Date Filipe Polanco MD [address] [place] [phone] PCP - General Family Medicine 05/23/23 Luciana Nicolas NP [address] [place] [phone] Nurse Practitioner Family Medicine 05/23/23 Forecast Analyst Relationship Specialty Start Date End Date Filipe Polanco MD [address] [place] [phone] PCP - General Family Medicine 05/23/23 Luciana Nicolas NP [address] [place] [phone] Nurse Practitioner Family Medicine 05/23/23 Forecast Analyst Relationship Specialty Start Date End Date Filipe Polanco MD [address] [place] [phone] PCP - General Family Medicine 05/23/23 Luciana Nicolas NP [address] [place] [phone] Nurse Practitioner Family Medicine 05/23/23 Forecast Analyst Relationship Specialty Start Date End Date Filipe Polanco MD [address] [place] [phone] PCP - General Family Medicine 05/23/23 Luciana Nicolas NP [address] [place] [phone] Nurse Practitioner Family Medicine 05/23/23 Forecast Analyst Relationship Specialty Start Date End Date Filipe Polanco MD [address] [place] [phone] PCP - General Family Medicine 05/23/23 Luciana Nicolas NP [address] [place] [address] Nurse Practitioner Family Medicine 05/23/23 Forecast Analyst Relationship Specialty Start Date End Date Filipe Polanco MD [address] [place] [phone] PCP - General Family Medicine 05/23/23 Luciana Nicolas NP [address] [place] [address] Nurse Practitioner Family Medicine 05/23/23 Forecast Analyst Relationship Specialty Start Date End Date Filipe Polanco MD [address] [place] [phone] PCP - General Family Medicine 05/23/23 Luciana Nicolas NP [address] [place] [phone] PCP - ACO Reach 05/23/24 Luciana Nicolas NP [address] [place] [phone] Nurse Practitioner Family Medicine 05/23/23 Forecast Analyst Relationship Specialty Start Date End Date Filipe Polanco MD [address] [place] [phone] PCP - General Family Medicine 05/23/23 Luciana Nicolas NP [address] [place] [phone] PCP - ACO Reach 05/23/24 Luciana Nicolas NP [address] [place] [address] Nurse Practitioner Family Medicine 05/23/23 Forecast Analyst Relationship Specialty Start Date End Date Filipe Polanco MD [address] [place] [phone] PCP - General Family Medicine 05/23/23 Luciana Nicolas NP [address] [place] [address] PCP - ACO Reach 05/23/24 Luciana Nicolas NP [address] [place] [address] Nurse Practitioner Family Medicine 05/23/23 Forecast Analyst Relationship Specialty Start Date End Date Filipe Polanco MD [address] [place] [phone] PCP - General Family Medicine 05/23/23 Luciana Nicolas NP [address] [place] [address] PCP - ACO Reach 05/23/24 Luciana Nicolas NP [address] [place] [address] Nurse Practitioner Family Medicine 05/23/23 Forecast Analyst Relationship Specialty Start Date End Date Filipe Polanco MD [address] [place] [phone] PCP - General Family Medicine 05/23/23 Luciana Nicolas NP [address] [place] [address] PCP - ACO Reach 05/23/24 Luciana Nicolas NP [address] [place] [address] Nurse Practitioner Family Medicine 05/23/23 Forecast Analyst Relationship Specialty Start Date End Date Filipe Polanco MD [address] [place] [address] PCP - General Family Medicine 05/23/23 Luciana Nicolas NP [address] [place] [address] PCP - ACO Reach 05/23/24 Luciana Nicolas NP [address] [place] [address] Nurse Practitioner Family Medicine 05/23/23 Forecast Analyst Relationship Specialty Start Date End Date Filipe Polanco MD [address] [place] [address] PCP - General Family Medicine 05/23/23 Luciana Nicolas NP [address] [place] [address] PCP - ACO Reach 05/23/24 Luciana Nicolas NP [address] [place] [address] Nurse Practitioner Family Medicine 05/23/23 Forecast Analyst Relationship Specialty Start Date End Date Filipe Polacno MD [address] [place] [address] PCP - General Family Medicine 05/23/23 Luciana Nicolas NP [address] [place] [address] PCP - ACO Reach 05/23/24 Luciana Nicolas NP [address] [place] [id number] Nurse Practitioner Family Medicine 05/23/23 Forecast Analyst Relationship Specialty Start Date End Date Filipe Polanco MD [address] [place] [phone] PCP - General Family Medicine 05/23/23 Luciana Nicolas NP [address] [place] [id number] PCP - ACO Reach 05/23/24 Luciana Nicolas NP [address] [place] [id number] Nurse Practitioner Family Medicine 05/23/23 Forecast Analyst Relationship Specialty Start Date End Date Filipe Polanco MD [address] [place] [phone] PCP - General Family Medicine 05/23/23 Luciana Nicolas NP [address] [place] [phone] PCP - ACO Reach 05/23/24 Luciana Nicolas NP [address] [place] [phone] Nurse Practitioner Family Medicine 05/23/23 Reason for Visit (unrecogniz ed section and content) Reason Onset Date Comments Med Refill 03/17/2024 Reason Onset Date Comments Med Refill 12/18/2023 Reason Onset Date Comments Med Refill 06/25/2024 Reason Onset Date Comments Med Refill 08/11/2024 Reason Onset Date Comments Med Refill 09/22/2024 Reason Onset Date Comments Med Refill 11/04/2024 FOR RECORDS PERTAINING TO PATIENTS WHO ARE [...] BE BASED ON THE PRIMARY CLINICAL RECORDS. [facility]. provides no warranty or guarantee of the accuracy or completeness of information in this document.
--- NOTE | 2024-11-23 19:36 | ECG_ITS ---
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 Measurements Intervals [place] Rate: 73 P: -30 LA: 160 QRS: 135 QRSD: 104 T: 127 QT: 368 QTc: 394 Interpretive Statements 1100 Sinus rhythm 1470 with occasional supraventricular premature complexes 5120 Possible right ventricular hypertrophy 9140 abnormal rhythm ECG Compared to ECG 09/17/2022 13:47:36 No significant changes Electronically Signed On 11-25-2024 13:59:25 EDT by DANGELO JAEGER M.D.
[2024-11-23 19:45] LABS: Hematocrit 34.2 % (42.0-54.0); Hemoglobin 11.5 g/dL (14.0-18.0); Immature Granulocytes Abs Auto 0.05 10^3/uL (0.00-0.03); Immature Granulocytes Pct Auto 0.4 % (0.0-0.5); Lymphocytes Absolute Auto 1.0 10^3/uL (1.2-3.8); Mean Corpuscular HGB Conc 33.6 g/dL (29.9-35.2); Mean Corpuscular Hemoglobin 29.9 pg (25.9-34.0); Mean Corpuscular Volume 89.1 fL (80.0-94.0); Platelet Count 350 10^3/uL (150-450); Red Blood Count 3.84 10^6/uL (4.70-6.10); White Blood Count 12.5 10^3/uL (4.0-11.0)
[2024-11-23 19:48] LABS: Glucose Urine UA NEGATIVE (NEGATIVE)
[2024-11-23 19:54] LABS: Cast Seen? NONE SEEN #/LPF (NONE SEEN); Crystals Seen? None Seen #/HPF (None Seen); Urine Culture Indicated NO
[2024-11-23] MEDS: FAMOTIDINE/PF 20 MG/2 ML VIAL IV (19:57)
[2024-11-23] MEDS: 0.9 % SODIUM CHLORIDE 1,000 ML 1000 ML IV (19:57)
[2024-11-23 19:59] LABS: Lactate/Lactic Acid 1.9 mmol/L (0.4-2.0)
[2024-11-23 20:08] LABS: Alanine Aminotransferase 22 U/L (16-63); Albumin Globulin Ratio 0.8; Albumin Level 3.3 g/dL (3.4-5.0); Alkaline Phosphatase 85 U/L (46-116); Anion Gap 12.9; Aspartate Amino Transferase 16 U/L (15-37); Blood Urea Nitrogen 14.0 mg/dL (7.0-18.0); Calcium 9.1 mg/dL (8.5-10.1); Carbon Dioxide 29.8 mmol/L (21.0-32.0); Chloride 103 mmol/L (98-107); Estimated GFR (African America >60 (>=60 mL/min/1.73m^2); Estimated GFR (Non-African Ame >60 (>=60 mL/min/1.73m^2); Globulin 4.0 g/dL; Glucose 96 mg/dL (74-106); Potassium 3.7 mmol/L (3.5-5.1); Sodium 142 mmol/L (136-145); Total Protein 7.3 g/dL (6.4-8.2)
[2024-11-23 20:10] LABS: Lipase 28.0 U/L (16.0-77.0); Magnesium 2.2 mg/dL (1.8-2.4); NT Pro B Type Natriuretic Pept 281.0 pg/mL (<=1800.0)
--- NOTE | 2024-11-24 02:10 | ED.GENADUL1 ---
HPI HPI - General Adult General Chief complaint: Abdominal Pain Stated complaint: abd pain Time Seen by Provider: 11/23/24 19:06 Source: patient Mode of arrival: Wheelchair Limitations: no limitations History of Present Illness HPI narrative: Patient is a 89-year-old male presenting to the emergency department with his daughter for concerns of abdominal pain. Patient states that over the last 4 days, he has had intermittent upper abdominal pain. He states has had a mild amount of diarrhea as well. He states his stools are dark, but likely related to the iron supplements that he takes. He denies any nausea or vomiting. He is still tolerating p.o. with no loss of appetite. He denies any significant chest pain or shortness of breath. No fevers or chills. Denies history of intra-abdominal surgeries. Denies history of AAA. Denies history of AR or previous coronary stents. He denies any syncopal events. Denies hematochezia or tarry stools. Related Data Home Medications ?Medication ?Instructions ?Recorded ?Confirmed gabapentin 300 mg capsule 300 mg PO BID 09/17/22 11/23/24 hydrocodone 5 mg-acetaminophen 325 1 tab PO BID PRN pain 09/17/22 11/23/24 mg tablet losartan 25 mg tablet 25 mg PO DAILY 09/17/22 11/23/24 oxybutynin chloride 5 mg 5 mg PO BEDTIME 09/17/22 11/23/24 tablet,extended release 24 hr tamsulosin 0.4 mg capsule 0.4 mg PO BID 09/17/22 11/23/24 apixaban 2.5 mg tablet (Eliquis) 2.5 mg PO Q12H 11/23/24 11/23/24 ferrous sulfate 325 mg (65 mg 325 mg PO DAILY 11/23/24 11/23/24 iron) tablet (Feosol) Allergies Allergy/AdvReac Type Severity Reaction Status Date / Time Penicillins Allergy Severe Rash Verified 09/17/22 11:32 Opioid HPI Opioid Management Most Recent Opioid Data: Last Pain Scale 2 09/17/22, 20:00 Review of Systems ROS Status of ROS 10 or more systems reviewed and unremarkable except as noted in history and below [facility] PFS Medical History (Updated 11/23/24 @ 23:03 by Antonio Riggs DO) Chest pain ?R07.9 - Chest pain, unspecified (ICD-10) Angina at rest ?I20.8 - Other forms of angina pectoris (ICD-10) Right above-knee amputee ?Z89.611 - Acquired absence of right leg above knee (ICD-10) Crohn disease ?K50.90 - Crohn's disease, unspecified, without complications (ICD-10) BPH (benign prostatic hyperplasia) ?N40.0 - Benign prostatic hyperplasia without lower urinary tract symptoms (ICD-10) Nocturia ?R35.1 - Nocturia (ICD-10) Hearing loss ?H91.90 - Unspecified hearing loss, unspecified ear (ICD-10) Atrial fibrillation ?I48.91 - Unspecified atrial fibrillation (ICD-10) Surgical History (Updated 09/17/22 @ 16:11 by Elena Starkey) History of amputation ?Z89.9 - Acquired absence of limb, unspecified (ICD-10) Social History Smoking status: Former smoker Little interest or pleasure in doing things: not at all Feeling down, depressed, or hopeless: not at all Exam Narrative Exam Narrative: CONSTITUTIONAL: Well-appearing, answering questions and following commands appropriately SKIN: Was warm and dry. EYES: PERRLA, no scleral icterus or conjunctival pallor EARS, NOSE, THROAT: Neck was supple. There was no jugular venous distention. RESPIRATORY: Clear to auscultation bilaterally, no wheezes, crackles, or stridor, no use of accessory muscles CARDIOVASCULAR: Normal rate and regular rhythm. There is no S3, S4, murmur, rub. Radial and dorsalis pedis pulses are 2+ and symmetrical. GASTROINTESTINAL: Abdomen was soft, non-tender, and non-distended. No masses. There is no guarding or rebound tenderness MUSCULOSKELETAL: There was no lower extremity edema, erythema, or tenderness. NEUROLOGIC: Patient is awake and alert. Equal strength in all extremities. Facies were symmetrical. Constitutional Vital Signs, click to edit/add: Last Vital Signs Temp 97.5 F L 11/23/24 18:27 Pulse 74 11/23/24 18:27 Resp 18 11/23/24 18:27 BP 141/82 11/23/24 18:27 Pulse Ox 100 11/23/24 18:27 O2 Del Method Room Air 11/23/24 18:27 Course Vital Signs Vital signs: Vital Signs Temperature 97.5 F L 11/23/24 18:27 Pulse Rate 74 11/23/24 18:27 Respiratory Rate 18 11/23/24 18:27 Blood Pressure 141/82 11/23/24 18:27 Pulse Oximetry 100 11/23/24 18:27 Oxygen Delivery Method Room Air 11/23/24 18:27 Temperature 97.5 F L 11/23/24 18:27 Pulse Rate 74 11/23/24 18:27 Respiratory Rate 18 11/23/24 18:27 Blood Pressure 141/82 11/23/24 18:27 Pulse Oximetry 100 11/23/24 18:27 Oxygen Delivery Method Room Air 11/23/24 18:27 Medical Decision Making MDM Narrative Medical decision making narrative: Patient is an 89-year-old male presented to the emergency department with a 4-day history of intermittent epigastric pain and diarrhea. Vital signs on arrival are within normal limits. He is afebrile and hemodynamic stable. Examination as noted above, however was normal without any significant findings. Differential diagnosis for vague abdominal pain in an elderly male include, but are not limited to, ACS, AAA, pancreatitis, gastritis, gastroenteritis, or other electrolyte/metabolic derangement. IV was established and laboratory studies were obtained. CTA of the chest, abdomen, pelvis were ordered. He was given 1 L bolus of normal saline, IV Zofran, IV famotidine for symptomatic treatment. Laboratory studies were unremarkable. Mild leukocytosis. He is anemic but at his baseline. No electrolyte/metabolic derangements. No transaminitis or hyperbilirubinemia. Troponin not elevated. Urinalysis was negative. Lipase not elevated. BNP not elevated. CTA of the chest/abdomen/pelvis independently reviewed/interpreted by myself and confirmed by radiology demonstrated evidence of enteritis without acute intra-abdominal or intrathoracic process. No evidence of aortic dissection. Twelve-lead independently reviewed/interpreted by myself demonstrated normal sinus rhythm without evidence of acute myocardial ischemia. Normal rate of 73. Normal axis. Occasional PACs. No ST segment elevations. QRS, NC, and QTc interval within normal limits. On reevaluation, patient states he feels well and is asymptomatic. He feels comfortably being discharged home. Patient's presentation is most likely secondary to viral gastroenteritis. Return precautions were given including any new or concerning symptoms. He is instructed to follow-up with his PCP for further care. Patient understands and agrees to the plan. Medical Records Medical records reviewed: Yes I reviewed the patient's medical records Lab Data Lab results reviewed: Yes I reviewed the patient's lab results Labs: Lab Results 11/23/24 11/23/24 Range/Units 18:35 19:16 WBC 12.5 H (4.0-11.0) 10^3/uL RBC 3.84 L (4.70-6.10) 10^6/uL Hgb 11.5 L (14.0-18.0) g/dL Hct 34.2 L (42.0-54.0) % MCV 89.1 (80.0-94.0) fL MCH 29.9 (25.9-34.0) pg MCHC 33.6 (29.9-35.2) g/dL RDW 13.7 (11.0-15.0) % Plt Count 350 (150-450) 10^3/uL MPV 10.7 (9.5-13.5) fL Neut % (Auto) 84.8 H (43.0-75.0) % Lymph % (Auto) 7.9 L (20.5-60.0) % [place] % (Auto) 5.3 (1.7-12.0) % Eos % (Auto) 1.1 (0.9-7.0) % Baso % (Auto) 0.5 (0.2-2.0) % Neut # (Auto) 10.6 H (1.4-6.5) 10^3/uL Lymph # (Auto) 1.0 L (1.2-3.8) 10^3/uL [place] # (Auto) 0.7 (0.3-0.8) 10^3/uL Eos # (Auto) 0.1 (0.0-0.7) 10^3/uL Baso # (Auto) 0.1 (0.0-0.1) 10^3/uL Abs Immat Gran (auto) 0.05 H (0.00-0.03) 10^3/uL Imm/Tot Granulo (auto) 0.4 (0.0-0.5) % Sodium 142 (136-145) mmol/L Potassium 3.7 (3.5-5.1) mmol/L Chloride 103 (98-107) mmol/L Carbon Dioxide 29.8 (21.0-32.0) mmol/L Anion Gap 12.9 BUN 14.0 (7.0-18.0) mg/dL Creatinine 0.81 (0.70-1.30) mg/dL Est GFR ( Amer) >60 (>=60 mL/min/1.73m^2) Est GFR (Non-Af Amer) >60 (>=60 mL/min/1.73m^2) BUN/Creatinine Ratio 17.3 Glucose 96 (74-106) mg/dL Lactate 1.9 (0.4-2.0) mmol/L Calcium 9.1 (8.5-10.1) mg/dL Magnesium 2.2 (1.8-2.4) mg/dL Total Bilirubin 0.3 (0.2-1.0) mg/dL AST 16 (15-37) U/L ALT 22 (16-63) U/L Alkaline Phosphatase 85 (46-116) U/L Troponin I High Sens 6.4 (4.0-76.1) pg/mL NT-Pro-B Natriuret Pep 281.0 (<=1800.0) pg/mL Total Protein 7.3 (6.4-8.2) g/dL Albumin 3.3 L (3.4-5.0) g/dL Globulin 4.0 g/dL Albumin/Globulin Ratio 0.8 Lipase 28.0 (16.0-77.0) U/L Urine Color Yellow (YELLOW) Urine Clarity Clear (CLEAR) Urine pH 6.0 (5.0-9.0) Ur Specific [place] 1.025 (1.005-1.025) Urine Protein Trace (NEG/TRACE) mg/dL Urine Glucose (UA) Negative (NEGATIVE) mg/dL Urine Ketones Trace A (NEGATIVE) mg/dL Urine Occult Blood Trace-i (NEGATIVE) Urine Nitrite Negative (NEGATIVE) Urine Bilirubin Negative (NEGATIVE) Urine Urobilinogen 0.2 (0.2-1.0) EU/dL Ur Leukocyte Esterase Negative (NEGATIVE) Urine RBC 0-2 (0-2) #/HPF Urine WBC 0-2 A (NONE SEEN) #/HPF Ur Squamous Epith Cells None seen (NONE/RARE) #/LPF Ur Transition Epith Cell Rare A (NONE SEEN) #/LPF Urine Crystals None seen (None Seen) #/HPF Urine Bacteria None seen (NONE SEEN) #/HPF Urine Casts None seen (NONE SEEN) #/LPF Urine Mucus Moderate A (NONE SEEN) Ur Culture Indicated? No Imaging Data CT scan - chest: Attestation: I personally reviewed and interpreted this imaging study as follows: ECG Data Attestation: I personally reviewed and interpreted this ECG as follows: Discharge Plan Discharge Chief Complaint: Abdominal Pain Clinical Impression: Gastroenteritis Patient Disposition: Home, Self-Care Condition: Good Mode of Transportation: Private Vehicle Prescriptions / Home Meds: No Action ferrous sulfate [Feosol] 325 mg (65 mg iron) tablet 325 mg PO DAILY Eliquis 2.5 mg tablet 2.5 mg PO Q12H tamsulosin 0.4 mg capsule 0.4 mg PO BID losartan 25 mg tablet 25 mg PO DAILY Rx Instructions: AM oxybutynin chloride 5 mg tablet extended release 24hr 5 mg PO BEDTIME gabapentin 300 mg capsule 300 mg PO BID hydrocodone-acetaminophen 5-325 mg tablet 1 tab PO BID PRN (Reason: pain) Print Language: Israeli Instructions: Gastroenteritis (ED) Referrals: Luciana Nicolas NP [Primary Care Provider, Family Practice] - 1 week Discharge Date/Time: 11/23/24 23:22
== END 2024-11-23 23:22 | disposition home or self-care (01) ==
PROVIDERS: Emergency Provider Student in an Organized Health Care Education/Training Program; PCP Nurse Practitioner
DX: K52.9 Noninfective gastroenteritis and colitis, unspecified (principal); R10.84 Generalized abdominal pain; R10.13 Epigastric pain
CPT/HCPCS: 36415; 71275; 74174; 80053; 81001; 83605; 83690; 83735; 83880; 84484; 85025; 93005; 96361; 96374; 96375; 99285; J2405; J3490; Q9967

== ENCOUNTER 2024-11-28 11:10 | Outpatient (OUT) | payer MEDICARE, SELFPAY ==
--- OUTSIDE RECORDS SUMMARY | 2024-11-24 23:59 | XMS_ITS | Continuity of Care Document ---
Author Organization [facility] Address [address] [place] [address] Care Team Providers Care City Dispatcher Name Role Phone EMILY LYNCH Primary Care Physician Encounter FT_AMBFIN [id number] Date(s): 11/24/24 - 11/24/24 [facility] [address] [place] [address]- Encounter Diagnosis Nocturia(Discharge Diagnosis) - 11/24/24 BPH with urinary obstruction(Discharge Diagnosis) - 11/24/24 Hematuria, microscopic(Discharge Diagnosis) - 11/24/24 Discharge Disposition: Home (Routine DC) Attending Physician: Don JARQUIN MD Encounter Type: Clinic Allergies, Adverse Reactions, Alerts Substance Criticality Severity Reaction Reaction Severity Status dicloxacillin Other Active penicillins Unknown Active Assessment and Plan Future Appointments Appointment Date:05/29/2025 11:00:00 AM Scheduled Provider:Don JARQUIN MD Location:[facility] Appointment Type:URO Office Visit Immunizations Given and Recorded Vaccine Date Status Refusal Reason influenza virus vaccine, inactivated 02/02/24 Gavino rded influenza virus vaccine, inactivated 01/16/23 Gavino rded influenza virus vaccine, inactivated 01/09/22 Gavino rded influenza virus vaccine, inactivated 02/23/21 Gavino rded influenza virus vaccine, inactivated 01/27/20 Gavino rded SARS-CoV-2 (COVID-19) [id number] 01/09/22 Recorded SARS-CoV-2 (COVID-19) mRNA BNT-162b2 vax 03/04/21 Recorded SARS-CoV-2 (COVID-19) mRNA-1273 vaccine 06/22/20 R ecorded SARS-CoV-2 (COVID-19) mRNA-1273 vaccine 05/24/20 R ecorded pneumococcal 23-valent vaccine 01/27/20 Recorded Medications acetaminophen-hydrocodone 325 mg-5 mg oral tablet 1 tab(s), Refill(s) 0 Start Date: 11/24/24 Status: Ordered Repeat number: 1 Eliquis 2.5 mg oral tablet Refills(s) 0 Start Date: 06/11/23 Status: Ordered Repeat number: 1 fluticasone 0.05 mg/inh Nasal [place] Refill(s) 0, 16 gm, SPRAY 1 SPRAY INTO EACH NOSTRIL EVERY DAY Start Date: 02/13/22 Status: Ordered Repeat number: 1 gabapentin 100 mg Cap mg cap(s), Oral, TID, Refills(s) 0 Start Date: 03/28/21 Status: Ordered Repeat number: 1 Iron Chews mg, Oral, Daily, Refills(s) 0 Start Date: 12/01/22 Status: Ordered Repeat number: 1 losartan 25 mg Tab mg tab(s), Oral, Daily, Refills(s) 0 Start Date: 12/10/20 Status: Ordered Repeat number: 1 mirabegron 50 mg oral tablet, extended release 50 mg = 1 tab(s), Oral, Daily, X 30 day(s), # 30 tab(s), Refills(s) 11, Pharmacy: [facility] [id number], 185, cm, 08/18/24 10:14:00 EDT, Height/Length Dosing, 74, kg, 08/18/24 10:14:00 EDT, WeightDosing Start Date: 08/18/24 Stop Date: 08/13/25 Status: Ordered Quantity: 30.0 Unit: tab(s) Repeat number: 12 Indications: Nocturia; tamsulosin 0.4 mg Cap 0.4 mg = 1 cap(s), Oral, BID, # 180 cap(s), Refills(s) 3, Pharmacy: [facility] [id number], 185, cm, 08/17/23 9:39:00 EDT, Height/Length Dosing, 74, kg, 08/17/23 9:39:00 EDT, Weight Dosing Start Date: 02/12/24 Status: Ordered Quantity: 180.0 Unit: cap(s) Repeat number: 4 Vitamin B-12 Refills(s) 0 Start Date: 12/01/22 Status: Ordered Repeat number: 1 Problem List Condition Confirmation Course Effective Dates Status Health St atus Informant Arthritis Confirmed Active Atrial fibrillation Confirmed 07/12/18 Active BPH with urinary obstruction Confirmed Active Crohn's disease Confirmed Active Gross hematuria Confirmed Active Hx of longterm use of blood thinners Confirmed Active Hypertension Confirmed Active Hypertensive disorder Confirmed 02/02/21 Active Hematuria, microscopic Confirmed Active Nocturia Confirmed Active Weak urine stream Confirmed Active Elevated PSA Confirmed Active Procedures Procedure Date Related Diagnosis Body Site Status Transrectal needle biopsy of prostate 05/16/22 Completed TURP - Transurethral resecti on of prostate/TURBT 08/19/15 Completed Urodynamics 07/28/15 Completed Transurethral resection of prostate 11/30/09 Completed Transurethral resection of prostate 09/07/09 Completed Amputation of leg Complet ed Colonoscopy Completed Hernia repair Completed Unlisted procedure, femur or knee Completed Social History Social History Type Response Smoking Status Former smoker, quit more than 30 days ago; Tobacco Use: quit 30 years ago;Never; Type: Cigarettes; Concerns about tobacco use in household: No; Smoking Cessation Yes; Stopped at age: 35; entered on: 11/24/24 Sex Male Sex Representation Male (finding) Hospital Discharge Instructions Patient Education 11/24/2024 13:08:38 Urinary Frequency, Adult Urinary Frequency, Adult Urinary frequency means urinating [...] Keep a bladder diary. Keep track of: ??? What you eat and drink. ??? How often you urinate. ??? How much you urinate. ??? Follow a bladder training program. This may include: ??? Learning to delay going to the bathroom. ??? Double urinating, also called voiding. This helps if you are not completely emptying your bladder. ??? Scheduled voiding. ??? Do Kegel exercises. Kegel [...] these actions to prevent or treat constipation: ??? Drink enough fluid to keep your urine pale yellow. ??? Take cjyt-uek-esmqdqi or prescription medicines. ??? Eat foods that are high in fiber, such as beans, whole grains, and fresh fruits and vegetables. ??? Limit foods that are high in fat and processed sugars, such as fried or sweet foods. General instructions ??? Take ydhk-qff-hgrgbox and prescription medicines only as told by [...] With urinary frequency, you may urinate every 1???2 hours even though [...] muscles that help control urination. ??? Take uzuo-wbm-xyavjcz and prescription medicines only as told by your health care provider. ??? Contact a health care provider if your symptoms do not improve or get worse. This information is not intended to replace advice given to you by your health care provider. Make sure you discuss any questions you have with your health care provider. Document Revised: 11/05/2020 Document Reviewed: 11/05/2020 [employer] Patient Education ?? 2023 Field Agent. Follow Up Care 08/18/2024 10:42:01 With:MILKA OROZCO, Don Gutierrez, URL Address: [address] [place] [address] When: Unknown Comments:6 mos Patient Care team information Care Team Personnel Name: EMILY LYNCH CNP Position: FT Physician Member Role: Primary Care Physician Address: [address] [place] [phone] Telecom: Care Team Related Persons Name: XAVIER ANDERSON Insurance Providers Guarantor name: ROBIN PAZ Health Plan Information #: 1 Payer: NA Payer Identifier: [id number] Member Number: [id number] Group Number: [id number] Subscriber Identifier: [id number] Relationship to Subscriber: Self Coverage Type: MEDICARE Coverage Verification Date: 24 Telecom: NA Address: Health Plan Information #: 2 Payer: NA Payer Identifier: [id number] Member Number: [id number] Group Number: [id number] Subscriber Identifier: [id number] Relationship to Subscriber: Self Coverage Type: PRIVATE HEALTH INSURANCE Coverage Verification Date: 24 Telecom: Address:
--- OUTSIDE RECORDS SUMMARY | 2024-11-25 13:00 | XMS_ITS | Encounter Summary ---
Author Organization [facility] Address [address] [place] [address] Care Team Providers Care Gyroscopic Instrument Mechanic Name Role Phone Filipe Polanco MD Primary Care Provider [phone] Luciana Nicolas NP Unavailable [phone] Luciana Nicolas PRESS CLIPPINGS CUTTER AND PASTER Unavailable [phone] Reason for Visit * Reason Comments ER Follow-up Encounter Details Date Type Department Care Team ([facility] Contact Info) Description 11/25/2024 1:00 PM EDT Office Visit [facility] [address] [place] [address] Luciana Nicolas NP [address] [place] [address] 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 (HCC) (Primary Dx); Primary hypertension ; 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 More than 4 times per year 2023 Do you belong to any clubs o r organizations such as congregational groups, unions, fraternal or athletic groups, or [...] Recorded Patient Health Questionnaire-2 Score 0 2023 [facility] [place] of Occupat ional Health - Occupational Stress [...] place to sleep or slept in a longterm (including now)? No 2023 Sex and Gender Information Value Date Recorded Sex Assigned at Not on file Legal Sex Male 7:05 PM EDT Gender Identity Not on file Sexual Orientation Not on file documented as of this encounter Last Filed Vital Signs Vital Sign Reading Time Taken Comments Blood Pressure 144/76 11/25/2024 1:05 PM EDT Pulse 78 11/25/2024 1:05 PM EDT Temperature 36.4 C (97.5 F) 11/25/2024 1:05 PM EDT Respiratory Rate 18 11/25/2024 1:05 PM EDT Oxygen Saturation 97% 11/25/2024 1:05 PM EDT Inhaled Oxygen Concentration - - Weight 74.2 kg (163 lb 9.6 oz) 11/25/2024 1:05 P M EDT Height - - Body Mass Index 22.19 04/01/2024 1:26 PM EST documented in this encounter Progress Notes * Luciana Nicolas NP - 11/26/2024 4:04 AM EDTAssociated Problem(s): Gastroenteritis Reviewed [facility] ER notes Appears to be feeling better No s/s dehydration * Luciana Nicolas NP - 11/26/2024 4:02 AM EDTAssociated Problem(s): 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 (HCC) Continue with anti coagulation Follows with cardiology It is possible that his sxs he describes are related to afib Will reach out to cardiology * RORY ELENA - 11/25/2024 1:00 PM EDT Pt has not had any loose stools or diarrhea since being in the ER Pt had diarrhea for a week prior to the ER visit Pt often has dizziness in the mornings when waking up and at times after sitting up from bed or chair he becomes dizzy and nausea * Luciana Nicolas NP - 11/25/2024 1:00 PM EDT Images from the original note were not included. Gunnar Arrington is a 89 y.o. male presents with chief complaint of ER Follow-up HPI: Here for 3 month recheck, he also presents with his daughter today, since seen last in this office,his has . Overall his is doing fairly well after her passing. He does get meals on wheels for food, sleep can be on and off as he is trying to adjust to life without her. was also in the ER at [facility] a few days ago for gastroenteritis evaluation See [facility] ER notes, as well as labs: he is no longer having any diarrhea, no vomiting, no fever. Was told to stay on liquid diet, is wondering when to advance diet Chronic leg pain : has been taking opioid pain meds and gabapentin for several years, there is no significant changes in his pain levels or patterns. Does not appear to use more medication than indicated either. Calls for refills in between scheduled 3 month appts. Does not call early for refills HTN: tolerates medication no side effects Afib: is on eliquis, does not take any anti arrhythmic, or anything for rate control. Does follow with [facility] cardiology Concerns: ever so often he does report some dizziness, accompanied with like a head russell, last a minute of so, no chest pain, heart palpitations,no diaphoresis. As he describes it it can be an intense feeling. Most times can be associated with a position change but sometimes not. SUBJECTIVE: MEDICATIONS: Current Outpatient Medications Medication Instructions apixaban (Eliquis) 2.5 MG tablet 1 tablet, 2 times daily ferrous sulfate 325 mg, Oral, Daily with breakfast gabapentin (NEURONTIN) 300 mg, Oral, 2 times daily HYDROcodone-acetaminophen ([place]) 5-325 MG tablet 1 tablet, Oral, Every [...] arthralgias. Skin: Negative for color change. Neurological: Positive for dizziness. Negative for tremors and seizures. Psychiatric/Behavioral: Negative for agitation, decreased concentration, hallucinations, self-injury and suicidal ideas. The patient is not nervous/anxious. Hematological: Negative for adenopathy. Does not bruise/bleed easily. Endocrine: Negative for cold intolerance, heat intolerance, polydipsia and polyuria. Allergic/Immunologic: Negative for environmental allergies and food allergies. 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 doneagain 03/16/2020 RHIZOTOMY Right 05/25/2020 right theurapeutic rhizotomy sympathetic level of L4 and L5 - Dr Kim/VL[facility] family history is not on file. OBJECTIVE: Visit Vitals BP 144/76 (BP Location: Left arm, Patient Position: Sitting, BP Cuff Size: Adult long) Pulse 78 Temp 97.5 ??F (Temporal) Resp 18 Wt 163 lb 9.6 oz SpO2 97% BMI 22.19 kg/m?? Smoking Status Former BSA 1.94 m?? Physical Exam Constitutional: Appearance: Normal appearance. HENT: Head: Normocephalic. [...] Neck supple. Left lower leg: No edema. Lymphadenopathy: Cervical: No cervical adenopathy. Skin: General: [...] Items Addressed This Visit 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 (HCC) Continue with anti coagulation Follows with cardiology It is possible that his sxs he describes are related to afib Will reach out to cardiology Iron deficiency anemia Relevant Orders CBC and differential Iron + transferrin + TIBC Ferritin Phantom limb syndrome with pain (HCC) Continue with gabapentin and [place] OARRS reviewed Med Agreement signed: 05/28/24 Hypertension - Primary Please check blood pressure daily and record DASH diet Limit caffeine Take medication as directed Contact office if chest pain, pressure, dizziness, shortness of breath, swelling legs Recommend slow position changes Current med: losartan 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) OARRS reviewed Pain agreement is on file Fu in 3 months Gastroenteritis Reviewed [facility] ER notes Appears to be feeling better No s/s dehydration * Luciana Nicolas NP - 11/25/2024 6:46 AM EDTAssociated Problem(s): Phantom limb syndrome with pain (HCC) Continue with gabapentin and [place] OARRS reviewed Med Agreement signed: 05/28/24 * Luciana Nicolas NP - 11/25/2024 6:46 AM EDTAssociated Problem(s): 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) OARRS reviewed Pain agreement is on file Fu in 3 months * Luciana Nicolas NP - 11/25/2024 6:46 AM EDTAssociated Problem(s): Hypertension Please check blood pressure daily and record DASH diet Limit caffeine Take medication as directed Contact office if chest pain, pressure, dizziness, shortness of breath, swelling legs Recommend slow position changes Current med: losartan documented in this encounter Plan of Treatment Upcoming Encounters Date Type Department Care Team (Late st Contact Info) Description 02/25/2025 1:00 PM EST Office Visit [facility] [address] [place] [address] Luciana Nicolas NP [address] [place] [address] 06/01/2025 11:00 AM EST Office Visit [facility] [address] [place] [phone] Luciana Nicolas NP [address] [place] [address] Scheduled Orders Name Type Priority Associated Diagnoses Orde r Schedule CBC and differential Lab Routine Iron deficiency anemia, unspecified iron deficiency anemia type Expected: 11/25/2024 (Approximate), Expires: 11/25/2025 Iron + transferrin + TIBC Lab Routine Iron deficiency anemia, unspecified iron deficiency anemia type Expected: 11/25/2024 (Approximate), Expires: 11/25/2025 Ferritin Lab Routine Iron deficiency anemia, unspecified iron deficiency anemia type Expected: 11/25/2024 (Approximate), Expires: 11/25/2025 documented as of this encounter Visit Diagnoses Diagnosis 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 (HCC)- Primary Atrial fibrillation Primary hypertension Unspecified essential hypertension 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) Phantom limb (syndrome) Iron deficiency anemia, unspecified iron deficiency anemia type Gastroenteritis Other and unspecified noninfectious gastroenteritis and colitis documented in this encounter Additional Health Concerns Assessment Noted Time PHQ-9 Depression Total Score: 4 05/23/19 24 10:24 AM EST documented as of this encounter Care Teams Gyroscopic Instrument Mechanic Relationship Specialty Start Date End Date Filipe Polanco MD [address] [place] [address] PCP - General Family Medicine 05/23/23 Luciana Nicolas NP [address] [place] [address] PCP - ACO Reach 05/23/24 Luciana Nicolas NP [address] [place] [address] Nurse Practitioner Family Medicine 05/23/23 documented as of this encounter
--- OUTSIDE RECORDS SUMMARY | 2024-11-28 11:15 | XMS_ITS | Clinical Summary ---
Author Organization [facility] Address [address] [place] [address] Care Team Providers Care Well Blower Name Role Phone Filipe Polanco MD Primary Care Provider [phone] Luciana Nicolas ASSISTANT COUNSEL Unavailable [phone] Luciana Nicolas ASSISTANT COUNSEL Unavailable [phone] Allergies Active Allergy Reactions Criticality Noted [...] by mouth Daily 5 Active HYDROcodone-acet aminophen ([place]) 5-325 MG tabletIndication s:Amputation of right lower [...] 4 11/07/19 Discontinu ed(Reorder ) HYDROcodone-acet aminophen ([place]) 5-325 MG tablet Take 1 tablet by mouth every 12 (twelve) hours if needed for severe pain 11/05/19 Discontinu ed(Reorder ) Active Problems Problem Noted Date Diagnosed Date Gastroenteritis 11/26/2024 Assessment & Plan (11/26/2024 4:04 AM EDT): Reviewed [facility] ER notes Appears to be feeling better No s/s dehydration Crohn's disease 03/31/2024 Gross hematuria 03/31/2024 Hx of long term care pharmacist use of blood thinners 03/31/2024 Assessment & Plan (05/28/2024 6:52 AM EST): Check cbc yearly and prn Monitor for s/s GI bleeding Nocturia 03/31/2024 Weak urine stream 03/31/2024 Pulmonary hypertension, unspecified 02/27/2024 Overview (02/27/2024): Per ECHO findings 02/2024 at [facility] Assessment & Plan (05/28/2024 6:51 AM EST): [...] knee upon examination 08/20/2023 Assessment & Plan (11/25/2024 6:46 AM EDT): [facility] reviewed Pain agreement is on file Fu in 3 months Assessment & Plan (08/26/2024 6:39 AM EDT): OARRS reviewed Pain agreement is on file Fu in 3 months Assessment & Plan (04/01/2024 7:20 AM EST): OARRS reviewed Pain agreement is on file Fu in 3 months Assessment & Plan (11/21/2023 1:41 PM EDT): [facility] reviewed Pain agreement is on file Fu in 3 months Assessment & Plan (08/20/2023 2:01 PM EDT): [facility] reviewed Pain agreement signed Fu in 3 months Colon cancer screening 05/31/2023 Assessment & Plan (05/31/2023 2:41 PM EST): Pt requests screening colonoscopy, I obtained his scope from 09/19/2012 had sigmoid diverticulosis, mod 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 2023 Assessment & Plan (11/26/2024 4:02 AM EDT): Continue with anti coagulation Follows with cardiology It is possible that his sxs he describes are related to afib Will reach out to cardiology Assessment & Plan (08/26/2024 6:39 AM EDT): [...] as well Hypertension 2023 Assessment & Plan (11/25/2024 6:46 AM EDT): Please check blood pressure daily and record DASH diet Limit caffeine Take medication as directed Contact office if chest pain, pressure, dizziness, shortness of breath, swelling legs Recommend slow position changes Current med: losartan Assessment & Plan (08/26/2024 6:39 AM EDT): [...] 1:40 PM EDT): No med changes Contacted [facility] cardiology and they refilled his losartan [...] Takes supplement daily Encounter for subsequent [facility] wellness visit (AWV) in Medicare patient 2023 [...] (2023): Added automatically from request for surgery [id number] Added automatically from request for surgery [id number] Assessment & Plan (11/25/2024 6:46 AM EDT): Continue with gabapentin and [place] OARRS reviewed Med Agreement signed: 05/28/24 Assessment & Plan (08/26/2024 6:39 AM EDT): Continue with gabapentin and [place] OARRS reviewed Med Agreement signed: 05/28/24 Assessment & Plan (05/28/2024 11:46 AM EST): Continue with gabapentin and [place] OARRS reviewed Med Agreement signed: 05/28/24 Assessment [...] Above knee amputation of left lower extremity 05/23/19 24 08/20/2023 Assessment & Plan (08/20/2023 1:45 PM EDT): OARRS reviewed Pain aggreement Hypertensive disorder 02/02/20212023 Irregular heart rhythm 02/11/201611/20 Encounters Date Type Department Care Team Description 11/25/2024 1:00 PM EDT Office Visit [facility] [address] [place] [address] Luciana Nicolas NP 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 (HCC) (Primary Dx); Primary hypertension ; 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 More than 4 times per year 2023 Do you belong to any clubs o r organizations such as methodist groups, unions, fraternal or athletic groups, or [...] Recorded Patient Health Questionnaire-2 Score 0 2023 [facility] [place] of Occupat ional Health - Occupational Stress [...] oz) 11/25/2024 1:05 P M EDT Height 182.9 cm (6') 04/01/2024 1:26 PM EST Body Mass Index 22.19 04/01/2024 1:26 PM EST Plan of Treatment Upcoming Encounters Date Type Department Care Team (Late st Contact Info) Description 02/25/2025 1:00 PM EST Office Visit [facility] [address] [place] [phone] Luciana Nicolas, BETSY [address] [place] [address] 06/01/2025 11:00 AM EST Office Visit [facility] [address] [place] [address] Luciana Nicolas, BETSY [address] [place] [address] Health Maintenance Due Date Last Done Comments Influenza Vaccine (#1) 2024 , 01/16/2023, 01/16/2023, Additional history exists Medicare Annual Wellness (AWV) 05/28/2025 05/28/2024, 2023 Pneumococcal Vaccine: 65+ Years Addressed 01/16/2023, 01/27/2020 Overridden with t he intention of not completing the topic Insurance MEDICARE [employer]ET[employer] Care Teams Well Blower Relationship Specialty Start Date End Date Filipe Polanco MD [address] [place] [address] PCP - General Family Medicine 05/23/23 Luciana Nicolas NP [address] [place] [address] PCP - ACO Reach 05/23/24 Luciana Nicolas NP [address] [place] [address] Nurse Practitioner Family Medicine 05/23/23
--- OUTSIDE RECORDS SUMMARY | 2024-11-28 11:15 | XMS_ITS | Encounter Summary ---
Author Organization [facility] Address [address] [place] [address] Care Team Providers Care Office Bookkeeper Name Role Phone Filipe Polanco MD Primary Care Provider [phone] Luciana Nicolas NP Unavailable [phone] Luciana Nicolas LOSS CLAIM CLERK Unavailable [phone] Encounter Details Date Type Department Care Team (Late st Contact Info) Description 08/22/2024 Orders Only [facility] [address] [place] [address] Don Zhang MD [address] [place] [address] Social History Tobacco Use Types Packs/Day Years [...] often do you attend chur ch or religion services? More than 4 times per year 2023 Do you belong to any clubs o r organizations such as latter-day groups, unions, fraternal or athletic groups, or [...] Recorded Patient Health Questionnaire-2 Score 0 2023 [facility] Answer Date [...] place to sleep or slept in a skilled nursing (including now)? No 2023 Sex and Gender Information Value Date Recorded Sex Assigned at Not on file Legal Sex Male 7:05 PM EDT Gender Identity Not on file Sexual Orientation Not on file documented as of this encounter Plan of Treatment Upcoming Encounters Date Type Department Care Team (Late st Contact Info) Description 02/25/2025 1:00 PM EST Office Visit [facility] [address] [place] [address] Luciana Nicolas NP [address] [place] [address] 06/01/2025 11:00 AM EST Office Visit [facility] [address] [place] [address] Luciana Nicolas NP [address] [place] [address] documented as of this encounter Procedures Procedure [...] documented as of this encounter Care Teams Office Bookkeeper Relationship Specialty Start Date End Date Filipe Polanco MD [address] [place] [address] PCP - General Family Medicine 05/23/23 Luciana Nicolas NP [address] [place] [address] PCP - ACO Reach 05/23/24 Luciana Nicolas NP [address] [place] [address] Nurse Practitioner Family Medicine 05/23/23 documented as of this encounter
--- OUTSIDE RECORDS SUMMARY | 2024-11-28 11:16 | XMS_ITS | Encounter Summary ---
Author Organization [facility] Address [address] [place] [address] Care Team Providers Care Wire Spiral Binder Name Role Phone Filipe Polanco MD Primary Care Provider [phone] Luciana Nicolas NP Unavailable [phone] Luciana Nicolas NP Unavailable [phone] Encounter Details Date Type Department Care [...] often do you attend chur ch or mandaen services? More than 4 times per year 2023 Do you belong to any clubs o r organizations such as restorationist groups, unions, fraternal or athletic groups, or [...] Recorded Patient Health Questionnaire-2 Score 0 2023 [facility] of Occupat ional Health - [...] Office Visit [facility] [address] [place] [address] Luciana Nicolas NP [address] [place] [address] 06/01/2025 11:00 AM EST Office Visit [facility] [address] [place] [address] Luciana Nicolas NP [address] [place] [address] documented as of this encounter Procedures Procedure Name Priority Date/Time Associated Diagnosis Comments CA ECHO DOPPLER COMPLETE 02/27/2024 4:52 PM EST documented in this encounter Results * CA ECHO DOPPLER COMPLETE (02/27/2024 4:52 PM EST) Anatomical Region Laterality Modality Other 02/27/2024 4:52 PM EST Narrative 02/27/2024 4:53 PM EST The [address] [address] Cardiology Report Signed Patient: GUNNAR PAZ MR#: [id number] : 1935 Acct:[id number] Age/Sex: 88 / M ADM Date: 02/27/24 Loc: CARD Attending Dr: DANGELO GU Ordering Physician: DANGELO GU Date of Service: 02/27/24 Procedure(s): CA echo doppler complete Accession Number(s): [id number] cc: Luciana Nicolas NP; DANGELO GU Patient Name: GUNNAR PAZ MR#: [id number] : 1935 Exam Date: 02/27/2024 Ordering Doctor: [...] GU Signed By: 02/27/241652 DD/ 51 TD/TT: Golf Ball Winder: Procedure Note Radiology, Radiologist, MD - 02/27/2024 [place] [address] Cardiology Report Signed Patient: GUNNAR PAZ JMR#: [id number] : 1935cct:[id number] Age/Sex: 88 / MADM Date: 02/27/24 Loc: CARD Attending Dr: DANGELO GU Ordering Physician: DANGELO GU Date of Service: 02/27/24 Procedure(s): CA echo doppler complete Accession Number(s): [id number] cc: Luciana Nicolas AGENCY DIRECTOR; DANGELO UG Patient Name: GUNNAR PAZ MR#: [id number] : 1935 Exam Date: 02/27/2024 Ordering Doctor: [...] DANGELO GU Signed By:02/27/241652 DD/ 51 TD/TT: Golf Ball Winder: Generic External Data Provider [facility] Final Result documented in this encounter Visit Diagnoses Not on filedocumented in this encounter Additional Health Concerns Assessment Noted Time PHQ-9 Depression Total Score: 4 05/23/19 24 10:24 AM EST documented as of this encounter Care Teams Wire Spiral Binder Relationship Specialty Start Date End Date Filipe Polanco MD [address] [place] [address] PCP - General Family Medicine 05/23/23 Luciana Nicolas NP [address] [place] [address] PCP - ACO Reach 05/23/24 Luciana Nicolas NP [address] [place] [address] Nurse Practitioner Family Medicine 05/23/23 documented as of this encounter
--- OUTSIDE RECORDS SUMMARY | 2024-11-28 11:16 | XMS_ITS | Encounter Summary ---
Author Organization [facility] Address [address] [place] [address] Care Team Providers Care Sanitation Truck Driver Name Role Phone Filipe Polanco MD Primary Care Provider [phone] Luciana Nicolas NP Unavailable [phone] Luciana Nicolas NP Unavailable [phone] Encounter Details Date Type Department Care Team (Late st Contact Info) Description 02/27/2024 Orders Only [facility] [address] [place] [address] Kun Gu MD [address] [place] [address] Social History Tobacco Use Types [...] often do you attend chur ch or advent services? More than 4 times per year 2023 Do you belong to any clubs o r organizations such as shinto groups, unions, fraternal or athletic groups, or [...] Recorded Patient Health Questionnaire-2 Score 0 2023 [facility]ational [facility] Questionnaire Answer Date Recorded [...] place to sleep or slept in a fpc (including now)? No 2023 Sex and Gender Information Value Date Recorded Sex Assigned at Not on file Legal Sex Male 7:05 PM EDT Gender Identity Not on file Sexual Orientation Not on file documented as of this encounter Plan of Treatment Upcoming Encounters Date Type Department Care Team (Late st Contact Info) Description 02/25/2025 1:00 PM EST Office Visit [facility] [address] [place] [address] Luciana Nicolas NP [address] [place] [address] 06/01/2025 11:00 AM EST Office Visit [facility] [address] [place] [address] Luciana Nicolas NP [address] [place] [address] documented as of this encounter Procedures Procedure [...] documented as of this encounter Care Teams Sanitation Truck Driver Relationship Specialty Start Date End Date Filipe Polanco MD [address] [place] [address] PCP - General Family Medicine 05/23/23 Luciana Nicolas NP [address] [place] [address] PCP - ACO Reach 05/23/24 Luciana Nicolas NP [address] [place] [address] Nurse Practitioner Family Medicine 05/23/23 documented as of this encounter
--- OUTSIDE RECORDS SUMMARY | 2024-11-28 11:16 | XMS_ITS | Encounter Summary ---
Author Organization [facility] Address [address] [place] [address] Care Team Providers Care Automation Qtp Tester Name Role Phone Filipe Polanco MD Primary Care Provider [phone] Luciana Nicolas NP Unavailable [phone] Luciana Nicolas DEPILATORY PAINTER Unavailable [phone] Encounter Details Date Type Department Care Team (Late st Contact Info) Description 08/26/2024 Orders Only [facility] [address] [place] [address] Don Zhang MD [address] [place] [address] Social History Tobacco Use Types Packs/Day Years [...] often do you attend chur ch or lutheran services? More than 4 times per year 2023 Do you belong to any clubs o r organizations such as rastafari groups, unions, fraternal or athletic groups, or [...] Recorded Patient Health Questionnaire-2 Score 0 2023 [facility]ational [facility] Questionnaire Answer [...] place to sleep or slept in a fdc (including now)? No 2023 Sex and Gender [...] Visit [facility] [address] [place] [address] Luciana Nicolas NP [address] [place] [address] 06/01/2025 11:00 AM EST Office Visit [facility] [address] [place] [address] Luciana Nicolas NP [address] [place] [address] documented as of this encounter Procedures Procedure [...] documented as of this encounter Care Teams Automation Qtp Tester Relationship Specialty Start Date End Date Filipe Polanco MD [address] [place] [address] PCP - General Family Medicine 05/23/23 Luciana Nicolas NP [address] [place] [address] PCP - ACO Reach 05/23/24 Luciana Nicolas NP [address] [place] [address] Nurse Practitioner Family Medicine 05/23/23 documented as of this encounter
--- OUTSIDE RECORDS SUMMARY | 2024-11-28 11:16 | XMS_ITS ---
Author Organization [facility] Address [address] [place] [address] Care Team Providers Care Dining Service Supervisor Name Role Phone Filipe Polanco MD Primary Care Provider [phone] Luciana Nicolas NP Unavailable [phone] Lcuiana Nicolas FASHION SHOW DIRECTOR Unavailable [phone] Emergency Department Transitional Care Management (TCM) Status:Closed (Closed) Start date:11/23/2024 Enrollment date:11/25/2024 Enrollment reason:Identified using hospital discharge data End date:11/25/2024 Close reason:Assistance not needed Overview Discharged from [facility] ER on 11/23. Please contact within 2 days of discharge for ERTOC and schedule a follow-up appointment if needed. Continued Care and Services Coordination
--- OUTSIDE RECORDS SUMMARY | 2024-11-28 11:16 | XMS_ITS | Encounter Summary ---
Author Organization [facility] Address [address] [place] [address] Care Team Providers Care Scale Model Maker Name Role Phone Filipe Polanco MD Primary Care Provider [phone] Luciana Nicolas NP Unavailable [phone] Luciana Nicolas PEDIATRIC SURGEON Unavailable [phone] Encounter Details Date Type Department Care Team (Late st Contact Info) Description 11/25/2024 Patient Outreach [facility] [address] [place] [address] Lucy Recinos, RAMON [address] [place] [address] Social History Tobacco Use Types Packs/Day Years [...] often do you attend chur ch or mandaeism services? More than 4 times per year 2023 Do you belong to any clubs o r organizations such as hindu groups, unions, fraternal or athletic groups, or [...] Recorded Patient Health Questionnaire-2 Score 0 2023 [facility] Questionnaire Answer Date [...] place to sleep or slept in a mcfp (including now)? No 2023 Sex and Gender Information Value Date Recorded Sex Assigned at Not on file Legal Sex Male 7:05 PM EDT Gender Identity Not on file Sexual Orientation Not on file documented as of this encounter Progress Notes * RAMON Reeves - 11/25/2024 9:09 AM EDT Images from the original note were not included. Flowsheet Row Patient Outreach from 11/25/2024 in [facility] with Lucy RAMON Recinos Hospital Information ED, Hospital or Correction Facility Discharge? ED Patient has been contacted within 2 days of being seen in the ED Yes Diagnosis Gastroenteritis Discharge Date 11/24/24 Discharged To: Home Setting Discharge Hospital [facility] Engagement Call Start Time 903 Admission Date 11/23/24 Medications Discharge medications reviewed and reconciled from hospital? Not applicable Does the patient have all medications ordered at discharge? Not applicable Prescription Comments no med changes Appointments Does the patient have a primary care provider? Yes [Filipe Polanco MD/ Luciana Nicolas PEDIATRIC SURGEON appt 11/25/24] Nursing Interventions Verified appointment date/time/provider Does the patient have any upcoming specialty appointments? Not applicable Self Management Patient Teaching Does the patient have access to their discharge instructions? Yes Nursing Interventions Reviewed instructions with patient What is the patient's perception of their health status since discharge? Improving [pain improving,still mild discomfort under rib cage. Sticking to bland diet and this has helped] Is the patient/caregiver able to teach back the hierarchy of who to call/visit for symptoms/problems? PCP, Specialist, Home Health nurse, Urgent Care, ED, 911 Yes Wrap Up Wrap Up Additional Comments Presented to ED due to abdominal pain x4 days, mild diarrhea. Labs & UA unremarkable. CTA of chest/abd/pelvis showed evidence of enteritis. ECG showed normal sinus rhythm. Symptoms improved in ED, pt discharged home with no new medications. Call End Time 09 Spoke to pt, ED TCM complete. Has existing appt today with Luciana Nicolas NP. documented in this encounter Plan of Treatment Upcoming Encounters Date Type Department Care Team (Late st Contact Info) Description 02/25/2025 1:00 PM EST Office Visit [facility] [address] [place] [address] Luciana Nicolas NP [address] [place] [address] 06/01/2025 11:00 AM EST Office Visit [facility] [address] [place] [address] Luciana Nicolas NP [address] [place] [address] documented as of this encounter Visit Diagnoses Diagnosis Essential (primary) hypertension- Primary Unspecified essential hypertension 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 (HCC) Atrial fibrillation documented in this encounter Additional Health Concerns Assessment Noted Time PHQ-9 Depression Total Score: 4 05/23/19 24 10:24 AM EST documented as of this encounter Care Teams Scale Model Maker Relationship Specialty Start Date End Date Filipe Polanco MD [address] [place] [address] PCP - General Family Medicine 05/23/23 Luciana Nicolas NP [address] [place] [address] PCP - ACO Reach 05/23/24 Luciana Nicolas NP [address] [place] [address] Nurse Practitioner Family Medicine 05/23/23 documented as of this encounter
--- OUTSIDE RECORDS SUMMARY | 2024-11-28 11:16 | XMS_ITS | Encounter Summary ---
Author Organization [facility] Address [address] [place] [address] Care Team Providers Care Questioned Documents Examiner Name Role Phone Filipe Polanco MD Primary Care Provider [phone] Luciana Nicolas NP Unavailable [phone] Luciana Nicolas NP Unavailable [phone] Encounter Details Date Type Department Care Team (Late st Contact Info) Description 11/24/2024 Abstract [facility] [address] [place] [address] Luciana Nicolas NP [address] [place] [address] Social History Tobacco Use Types Packs/Day Years [...] often do you attend chur ch or jain services? More than 4 times per year 2023 Do you belong to any clubs o r organizations such as presybeterian groups, unions, fraternal or athletic groups, or [...] Recorded Patient Health Questionnaire-2 Score 0 2023 [facility] Questionnaire Answer Date [...] Visit [facility] [address] [place] [address] Luciana Nicolas NP [address] [place] [address] 06/01/2025 11:00 AM EST Office Visit [facility] [address] [place] [address] Luciana Nicolas NP [address] [place] [address] documented as of this encounter Visit Diagnoses Not on filedocumented in this encounter Additional Health Concerns Assessment Noted Time PHQ-9 Depression Total Score: 4 05/23/19 24 10:24 AM EST documented as of this encounter Care Teams Questioned Documents Examiner Relationship Specialty Start Date End Date Filipe Polanco MD [address] [place] [address] PCP - General Family Medicine 05/23/23 Luciana Nicolas NP [address] [place] [address] PCP - ACO Reach 05/23/24 Luciana Nicolas NP [address] [place] [address] Nurse Practitioner Family Medicine 05/23/23 documented as of this encounter
--- OUTSIDE RECORDS SUMMARY | 2024-11-28 11:16 | XMS_ITS | Encounter Summary ---
Author Organization [facility] Address [address] [place] [address] Care Team Providers Care Compensation And Benefits Analyst Name Role Phone Filipe Polanco MD Primary Care Provider [phone] Luciana Nicolas NP Unavailable [phone] Luciana Nicolas NP Unavailable [phone] Encounter Details Date Type Department Care Team (Late st Contact Info) Description 05/31/2023 Orders Only [facility] [address] [place] [address] uLciana Nicolas NP [address] [place] [address] Social History Tobacco Use Types Packs/Day Years Used Date Smoking Tobacco: Former Cigarettes 1.5 25 1 718 1982 Alcohol Use Standard Drinks/Week Comments Not [...] often do you attend chur ch or roman catholic services? More than 4 times per year [...] Recorded Patient Health Questionnaire-2 Score 0 2023 [facility] Questionnaire Answer Date [...] 02/25/2025 1:00 PM EST Office Visit [facility] [address] [place] [address] Luciana Nicolas NP [address] [place] [address] 06/01/2025 11:00 AM EST Office Visit [facility] [address] [place] [address] Luciana Nicolas NP [address] [place] [address] documented as of this encounter Procedures Procedure Name Priority Date/Time Associated Diagnosis Comments COLONOSCOPY DIAGNOSTIC Routine 05/31/2023 3:29 PM EST documented in this encounter Results * COLONOSCOPY DIAGNOSTIC (05/31/2023 3:29 PM EST) Anatomical Region Laterality Modality Radiographic Do ging us Luciana Nicolas VINYL FLOORING INSTALLER IMG XR PROCEDURES Final Result documented in this encounter Visit Diagnoses Not on filedocumented in this encounter Additional Health Concerns Assessment Noted Time PHQ-9 Depression Total Score: 4 05/23/19 24 10:24 AM EST documented as of this encounter Care Teams Compensation And Benefits Analyst Relationship Specialty Start Date End Date Filipe Polanco MD [address] [place] [address] PCP - General Family Medicine 05/23/23 Luciana Nicolas NP [address] [place] [address] PCP - ACO Reach 05/23/24 Luciana Nicolas NP [address] [place] [address] Nurse Practitioner Family Medicine 05/23/23 documented as of this encounter
--- OUTSIDE RECORDS SUMMARY | 2024-11-28 11:16 | XMS_ITS | Clinical Summary ---
Author Organization [facility] Address [address], [address] [place] [address] Care Team Providers Care Collection Development Librarian Name Role Phone Tammychet Wesley Jefferson DO Primary Care Provider [phone] Allergies Active Allergy Reactions Criticality Noted Date [...] 12:22 PM 10/07/2012 3:24 PM Care Teams Collection Development Librarian Relationship Specialty Start Date End Date Wesley Diaz DO [facility] [place] [address] PCP - General 09/27/12
--- OUTSIDE RECORDS SUMMARY | 2024-11-28 11:16 | XMS_ITS | Encounter Summary ---
Author Organization [facility] Address [address] [place] [address] Care Team Providers Care Bark Peeler Name Role Phone Filipe Polanco MD Primary Care Provider [phone] Filipe Polanco MD Primary Care Provider [phone] Luciana Nicolas MACHINE BILLER Unavailable [phone] Luciana Nicolas MACHINE BILLER Unavailable [phone] Encounter Details Date Type Department Care Team (Late Contact Info) Description 04/04/2023 Abstract [facility] [address] [place] [address] Luciana Nicolas NP [address] [place] [address] Social History Tobacco Use Types Packs/Day Years Used Date Smoking Tobacco: Former Cigarettes 1.5 25 1 438 - 1982 Tobacco Cessation:Counseling Given: Not Answered Sex and Gender Information Value Date Recorded Sex Assigned at Not on file Legal Sex Male 7:05 PM EDT Gender Identity Not on file Sexual Orientation Not on file documented as of this encounter Plan of Treatment Upcoming Encounters Date Type Department Care Team (Late Contact Info) Description 02/25/2025 1:00 PM EST Office Visit [facility] [address] [place] [address] Luciana Nicolas NP [address] [place] [address] 06/01/2025 11:00 AM EST Office Visit [facility] [address] [place] [address] Luciana Nicolas NP [address] [place] [address] documented as of this encounter Visit Diagnoses Not on filedocumented in this encounter Care Teams Bark Peeler Relationship Specialty Start Date End Date Filipe Polanco MD PCP - General Family Medicine 10/06/22 05/22/23 Filipe Polanco MD [address] [place] [address] PCP - General Family Medicine 05/23/23 Luciana Nicolas NP [address] [place] [address] PCP - ACO Reach 05/23/24 Luciana Nicolas NP [address] [place] [address] Nurse Practitioner Family Medicine 05/23/23 documented as of this encounter
--- OUTSIDE RECORDS SUMMARY | 2024-11-28 11:16 | XMS_ITS | Clinical Summary ---
Author Organization [facility] Address [address] [place] [address] Care Team Providers Care Environmental Conservation Officer Name Role Phone Luciana Nicolas MD Primary Care Provider [phone] Allergies Active Allergy Reactions Criticality Noted Date [...] the morning. Active losartan (Cozaar) 25 mg tabletIndications :Primary hypertension Take 1 tablet (25 mg) by mouth every other day. 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 03/31/2024 Nocturia 03/31/2024 Weak urine stream 03/31/2024 Aneurysm of ascending aorta without rupture 02/14 Overview (03/31/2024): 03/09 ECHO 4.5cm, unchanged Pulmonary hypertension 02/27/2024 Overview (03/31/2024): Per ECHO findings 02/2024 at [facility] Amputation of right lower ex tremity [...] (06/05/2022): Added automatically from request for surgery [id number] Atrial fibrillation 07/12/2018 Small bowel stricture 05/13/2018 Iron deficiency anemia 08/01/2017 Crohn's disease of small intestine without compl ication 02/23/2017 Vitamin D deficiency 05/25/2016 Hearing loss 05/24/2016 Rheumatoid arthritis 05/24/2016 Fitting and adjustment of prosthetic device 11/2016 Irregular heart rhythm 02/11/2016 Special screening for malignant neoplasms, colon 02/11/2016 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
--- OUTSIDE RECORDS SUMMARY | 2024-11-28 11:19 | XMS_ITS | CCD ---
Author Organization [facility]ini[facility] Care Team Providers Care Freight Adjuster Name Role Phone LITO CARDENASMatt JANA Referring Unavailable LITO JENNIFER NANCYALEA Primary Care Unavailable UNKNOWN, PROVIDER Attending Unavailable UNKNOWN, PROVIDER Admitting Unavailable Irvin White Primary Care Physician LUCIANA NICOLAS Primary Care Physician Wesley Diaz Primary Care Unavailable Joy Zhang Attending Unavailable Joy Zhang Admitting Unavailable MOUKABROOKLYNN, DR PIRESON Admitting Unavailable MOUKARBEL, DR PIERSON Attending Unavailable AICHHOLZ, DIRECTOR METABOLISM LUCIANA Primary Care Unavailable MOUKARBTOSHIA, DR PIERSON Consulting Unavailable AICHHOLZ, DIRECTOR METABOLISM LUCIANA Primary Care Unavailable CASTRO REYES Admitting Unavailable KATH ., CASTRO Attending Unavailable KATH .MICHAELID Consulting Unavailable MEGAN, MONSTER Admitting Unavailable MONSTER GUZMAN Attending Unavailable IRVIN WHITE Primary Care Unavailable AICHHOLZ, DIRECTOR METABOLISM LUCIANA Admitting Unavailable AICHHOLZ, DIRECTOR METABOLISM LUCIANA Attending Unavailable AICHHOLZ, DIRECTOR METABOLISM LUCIANA Primary Care Unavailable DEJUAN GUZMANINDA Admitting Unavailable MONSTER GUZMAN Attending Unavailable AICHHOLZ, DIRECTOR METABOLISM LUCIANA Primary Care Unavailable MEGAN, MONSTER Consulting Unavailable AICHHOLZ, DIRECTOR METABOLISM LUCIANA Admitting Unavailable AICHHOLZ, DIRECTOR METABOLISM LUCIANA Attending Unavailable AICHHOLZ, DIRECTOR METABOLISM LUCIANA Primary Care Unavailable AICHHOLZ, DIRECTOR METABOLISM LUCIANA Consulting Unavailable DR JOY LUNA Admitting Unavailable DR JOY LUNA Attending Unavailable AICHHOLZ, DIRECTOR METABOLISM LUCIANA Primary Care Unavailable DR JOY LUNA Consulting Unavailable Sherri OROZCO, Filipe Primary Care Provider Filipe Polanco MD Primary Care Provider [phone] Aichhololayinka BULB TESTER, Luciana Unavailable Fidencio BULB TESTER, Lcuiana Unavailable DANGELO JAEGER Attending Unavailable Fidencio BULB TESTER, Luciana Unavailable Joy ZHANG Attending Unavailable MILKA, Joy Gutierrez Attending Unavailable ZHANG, Joy Gutierrez Attending Unavailable MILKA, Joy Gutierrez Admitting Unavailable MILKA, Joy Gutierrez Attending Unavailable FIDENCIO, LUCIANA Attending Unavailable FIDENCIO, LUCIANA Attending Unavailable FIDENCIO, LUCIANA Attending Unavailable AICHOLZ, LUCIANA Attending Unavailable Allergies Allergy Classification Reported Allergen(s) Allergy Type Date of Onset Reaction(s) Facility (12 sources) Penicillins; Translations: [penicillins] Drug allergy (disorder) 3 Unknown (qualifier value) [facility] Repository (10 sources) Dicloxacillin; Translations: [dicloxacillin] Drug Allergy 6 Other (qualifier value) [facility] (1 source) Unable to Assess Drug allergy (disorder) 2 [facility] Repository (4 sources) Penicillin G Drug Allergy 3 Unknown [facility] (20 sources) Penicillins; Translations: [penicillins] Drug Intolerance 3 Other, Unknown (qualifier value) [facility] Medications Current Medications Medication Drug Class(es) Dates Sig (Normalized) Sig (Original) acetaminophen 325 mg / HYDROcodone bitartrate 5 mg oral tablet (20 sources) Opioid Agonist Start: 11-24-2024 acetaminophen-hydr ocodone 325 mg-5 mg oral tablet 1 tab(s), Refill(s) 0 Start Date: 11/24/24 Status: Ordered Repeat number: 1 Start: 11-04-2024 End: 12-04-2024 take 1 tablet by mouth once HYDROcodone-acetaminophen (Matteson) 5-325 MG tablet Indications: 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) , Phantom limb syndrome with pain (HCC) Take 1 tablet by mouth every 12 (twelve) hours if needed for severe pain 60 tablet 11/04/2024 12/04/2024 Active Start: 09-22-2024 End: 10-22-2024 take 1 tablet by mouth once HYDROcodone-acetaminophen (Matteson) 5-325 MG tablet Indications: Phantom pain Take 1 tablet by mouth every 12 (twelve) hours if needed for severe pain 60 tablet 09/22/2024 10/22/2024 Active Start: 08-11-2024 End: 09-10-2024 take 1 tablet by mouth once HYDROcodone-acetaminophen (Matteson) 5-325 MG tablet Indications: Phantom pain Take 1 tablet by mouth every 12 (twelve) hours if needed for severe pain 60 tablet 08/11/2024 09/10/2024 Active Start: 11-21-2023 End: 11-04-2024 take 1 tablet by mouth once HYDROcodone-acetaminophen (Matteson) 5-325 MG tablet Indications: Phantom pain Take 1 tablet by mouth every 12 (twelve) hours if needed for severe pain 60 tablet 05/28/2024 06/25/2024 Discontinued (Reorder) Start: 05-16-2023 End: 06-15-2023 take 1 tablet by mouth twice daily as needed for pain HYDROcodone-acetaminophen (Matteson) 5-325 MG tablet Indications: Phantom pain (CMS/HCC) Take 1 tablet by mouth 2 (two) times a day as needed for severe pain 60 tablet 0 05/16/2023 06/15/2023 Active Start: 05-01-2022 Matteson 325 mg-7 .5 mg oral tablet 1 tab(s), Oral, Once, 1 tab(s), Refill(s) 0, Take 1 hour prior to procedure. Don't drive or operate machinery while taking this medication., [facility] [id number], 185, cm, 02/13/22 11:34:00 EDT, Height/Length Dosing, [...] once daily cholecalciferol (Vitamin D-3) 50 MCG (1999 UT) capsule Indications: Vitamin D deficiency Take 1 capsule (50 mcg) by mouth Daily 90 capsule 05/30/2024 08/28/2024 Active ciprofloxacin 250 mg oral tablet (2 sources) Quinolone Antimicrobial Start: 12-12-2021 take 1 tablet by mouth twice daily Cipro 250 mg Tab 250 mg = 1 tab(s), Oral, BID, # 42 tab(s), Refills(s) 0, Pharmacy: [facility] [id number], 185, cm, 12/12/21 12:02:00 EDT, Height/Length Dosing, [...] Ordered ferrous sulfate 325 mg oral tablet (12 sources) Start: 11-07-2024 End: 02-05-2025 take 1 [...] Start Date: 03/28/21 Status: Ordered Iron Chews (4 sources) Start: 12-01-2022 take 1 mg by [...] mirabegron 50 mg extended release oral tablet (11 sources) beta3-Adrenergic Agonist Start: 08-18-2024 End: 08-13-2025 [...] Bedtime, # 30 tab(s), Refills(s) 11, Pharmacy: [facility] [id number], 185, cm, 12/12/21 12:02:00 EDT, Height/Length Dosing, 74.8, kg, 12/12/21 12:02:00 EDT, Weight Dosing Start Date: 12/12/21 Status: Ordered tamsulosin hydrochloride 0.4 mg oral capsule (20 sources) alpha-Adrenergic Getachew Start: 02-12-2024 take 1 capsule by mouth twice daily tamsulosin 0.4 mg Cap 0.4 mg = 1 cap(s), Oral, BID, # 180 cap(s), Refills(s) 3, Pharmacy: [facility] [id number], 185, cm, 08/17/23 9:39:00 EDT, Height/Length Dosing, 74, kg, 08/17/23 9:39:00 EDT, Weight Dosing Start Date: 02/12/24 Status: Ordered Quantity: 180.0 Unit: cap(s) Repeat number: 4 Start: 01-22-2023 take 1 capsule by [facility] twice daily tamsulosin 0.4 mg Cap 0.4 mg = 1 cap(s), Oral, BID, # 180 cap(s), Refills(s) 3, Pharmacy: [facility], 185, cm, 12/01/22 9:15:00 EDT, Height/Length Dosing, 74.6, kg, 12/01/22 9:15:00 EDT, Weight Dosing Start Date: 01/22/23 Status: Ordered Start: 01-20-2022 take 1 capsule by [facility] twice daily tamsulosin 0.4 mg Cap 0.4 mg = 1 cap(s), Oral, BID, # 180 cap(s), Refills(s) 3, Pharmacy: [facility] ([facility]), 185, cm, 12/12/21 12:02:00 EDT, Height/Length Dosing, 74.8, kg, 12/12/21 12:02:00 EDT, Weight Dosing Start Date: 01/20/22 Status: Ordered Start: 12-10-2020 take 1 capsule by [facility] twice daily tamsulosin 0.4 mg Cap 0.4 mg = 1 cap(s), Oral, BID, # 180 cap(s), Refills(s) 3, Pharmacy: [facility], 185, cm, 12/10/20 11:18:00 EDT, Height/Length Dosing, 75.4, kg, 12/10/20 11:18:00 EDT, Weight Dosing Start Date: 12/10/20 Status: Ordered take 1 capsule by [facility] every twenty-four hours in the morning tamsulosin (Flomax) 0.4 MG 24 hr capsule Take 1 capsule by mouth in the morning. Active Vitamin B1 (1 source) Start: 03-28-2021 Vitamin B1 Akila ly, Refills(s) 0 Start Date: 03/28/21 Status: Ordered vitamin B12 (19 sources) Vitamin B12 Start: 12-01-2022 Vitamin B-12 [...] procedure, # 2 cap(s), Refills(s) 0, Pharmacy: [facility] [id number], 185, cm, 03/28/21 13:13:00 EST, Height/Length Dosing, 75.4, kg, 03/28/21 13:13:00 EST, We... Start Date: 03/28/21 Status: Ordered fluticasone 0.05 mg/inh Nasal [place] (6 sources) Start: 02-13-2022 take 1 spray(s) nasal route once daily fluticasone 0.05 mg/inh Nasal [place] Refill(s) 0, 16 gm, SPRAY 1 SPRAY INTO EACH NOSTRIL EVERY DAY Start Date: 02/13/22 Status: Ordered Repeat number: 1 Start: 02-13-2022 take 1 spray(s) nasa l route once daily fluticasone 0.05 mg/inh Nasal [place] Refill(s) 0, 16 gm, SPRAY 1 SPRAY [...] urinary tract symptoms] Onset: 09-19-2021 09-24-2019 Chronic Noninfectious gastroenteritis (4 sources) Gastroenteritis; Translations: [Noninfective gastroenteritis and colitis, unspecified] Onset: 11-26-2024 11-26-2024 Episodic Nutritional deficiencies (20 sources) Vitamin D deficiency; Translations: [Vitamin D deficiency, unspecified] Onset: 05-25-2016 2023 Chronic Open wounds of extremities (20 sources) Amputated right lower limb above knee; Translations: [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, initial encounter] Onset: 08-20-2023 08-20-2023 Chronic Osteoarthritis (8 sources) Arthritis 09-24-2019 Chronic Other diseases of [...] 2023 Chronic Other aftercare (1 source) 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 *Flomax 0.4 mg BID is working IPSS Current PSA 11.38 05/28/24 *Start Myrbetriq ER 50 mg qd -Cont Tamsulosin wo changes. Pt denies pain/burning denies visible blood denies flank pain Pt complains for frequency and urgency Pt reports that he gets up about 5 times nightly to void History of Present Illness Tests reviewed: reviewed UA, cytology I have reviewed the previous health record [...] HPI. Physical Exam Vitals & Measurements HR: 68(Peripheral) RR: 16 BP: 136/88 HT: 185 cm HT: 73 in WT: 164.244 lb WT: 74.5 kg BMI: 21.77 General Appearance: alert, no distress, well nourished, well developed male. Assessment/Plan 1. BPH with urinary obstruction (N40.1: Benign prostatic hyperplasia with lower urinary tract symptoms) S/p TURP 2009 and 2015. IPSS 9 (13). Taking Tamsulosin 0.4 mg bid. Good, steady stream. Feels he empties. -Cont Tamsulosin bid. Pt to call for refills. -F/u in 6 mos 2. Nocturia (R35.1: Nocturia) Started on Myrbetriq ER 50 mg qd but he stopped the med after taking it for 2 weeks. Nocturia 4-5x/night. Does not feel current regimen needs adjusted. Daytime sxs are not as bothersome. -Pt is to restart Myrbetriq ER 50 mg qd. Pt to call our office if he chooses to d/c med. 3. Hematuria, microscopic (R31.29: Other microscopic hematuria) S/p Cysto 04/05/21. Negative hematuria workup in 2020. [1] Neg cytol 08/18/24. UA today shows trace-intact blood (small on prior UA). No gross hematuria recurrence since 2020. -Cont sx monitoring and routine UAs. Pt knows to notify the office if he were to experience gross hematuria or clots. Follow-up With When Contact Information MILKA OROZCO, Joy Gutierrez, URL [address] [facility] [place] [address] Additional Instructions: 6 mos Patient Education Urinary Frequency, Adult IKristie, personally scribed for Dr. Zhang on 11/24/2024 13:12:08. . Documentation recorded by the scribKristie marion, accurately reflects the services(s) I performed and decisions made by me. Authenticated by Dr. Zhang on 11/24/2024 13:15:41. 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 Medications acetaminophen-hydroc odone 325 mg-5 mg oral tablet, 1 tab(s) Eliquis 2.5 mg oral tablet fluticasone 0.05 mg/inh Nasal [place] gabapentin 100 mg Cap, Oral, TID Iron Chews, Oral, Daily losartan 25 mg Tab, Oral, Daily mirabegron 50 mg oral tablet, extended release, 50 mg= 1 tab(s), Oral, Daily, 11 refills tamsulosin 0.4 mg Cap, 0.4 mg= 1 cap(s), Oral, BID, 3 refills Vitamin B-12 Allergies dicloxacillin (Other) penicillins (Unknown) Social History Alcohol - Low Risk, 09/24/2019 Tobacco Former smoker, quit more than 30 days ago, quit 30 years ago Tobacco Use:. Never Smokeless Tobacco Use:. Cigarettes, Stopped age 35 Years. Household tobacco concerns: No. Yes, 11/24/2024 Family History Family history is negative Immunizations Vaccine Date Status influenza virus vaccine, inactivated 02/02/2024 Recorded influenza virus vaccine, inactivated 01/16/2023 Recorded influenza virus vaccine, inactivated 01/09/2022 Recorded SARS-CoV-2 (COVID-19) [id number] 01/09/2022 Recorded SARS-CoV-2 (COVID-19) mRNA BNT-162b2 vax 03/04/2021 Recorded influenza virus vaccine, inactivated 02/23/2021 Recorded SARS-CoV-2 (COVID-19) mRNA-1273 vaccine 06/22/2020 Recorded SARS-CoV-2 (COVID-19) mRNA-1273 vaccine 05/24/2020 Recorded (more content not included)... Normal [facility] Comment on above: Result Comment: Elec tronically Signed By: MILKA OROZCO, Joy Mcdonald.syed\Date and Time Signed: 11/24/24 13:15 EDT\.br\Electronically Co-Signed By: Kristie Squires\.br\Date and Time Co-Signed: 11/24/24 13:12 EDT Urine Cytology ([facility])on 08-21-2024 Microscopic exam Cytology (U) [Interp] Diagnosis Info Invalid Interpretation Code [facility] Comment on above: Result Comment: A:Ur ine,Urine:Voided Interpretation - Adequate cellularity for evaluation. CPT 45946 MicroScopic Description - Adequacy - Gross Description Site ID:A color Yellow fixative Alcohol Specimen designated Urine received in alcohol preservative and labeled with the patient???s name, consists of 100ml clear yellow fluid. Electronically signed by : on: 08/21/2024 13:07:55 Performed By: #### 1 [id number] #### [facility] [address] [place] [address] Ambulatory Visit Summaryon 08-18-2024 Ambulatory Visit Summary [...] B-12) fluticasone nasal (fluticasone 0.05 mg/inh Nasal [place]) gabapentin (gabapentin 100 mg Cap) losartan (losartan [...] Following Appointments Follow Up with MILKA OROZCO, ROMERO Crystal When: Where: [facility] [address], [place] [phone] Medications What How Much When Why Instructions New mirabegron (mirabegron 50 mg oral tablet, extended release) 1 Tablets By Mouth Every day Nocturia Duration: 30 Days Refills: 11 Pickup at [facility] [id number] Unchanged tamsulosin (tamsulosin 0.4 mg Cap) 1 Capsules By Mouth 2 times a day Unchanged apixaban (Eliquis 2.5 mg oral tablet) Contact prescribing physician if questions or concerns Unchanged carbonyl iron (Iron Chews) By Mouth Every day Contact prescribing physician if questions or concerns Unchanged cyanocobalamin (Vitamin B-12) Contact prescribing physician if questions or concerns Unchanged fluticasone nasal (fluticasone 0.05 mg/ inh Nasal [place]) 16 gm, SPRAY 1 SPRAY INTO EACH NOSTRIL EVERY DAY Contact prescribing physician if questions or concerns Unchanged gabapentin (gabapentin 100 mg Cap) By Mouth 3 times a day Contact prescribing physician if questions or concerns Unchanged losartan (losartan 25 mg Tab) By Mouth Every day Contact prescribing physician if questions or concerns Pharmacy Information [facility] [id number]: [address], [place] [phone] Allergies dicloxacillin (Other) penicillins (Unknown) Problems Ongoing [...] citrus, tomato-base (more content not included)... Normal [facility] Urine Cytology ([facility])on 08-18-2024 Method of Extraction Voided Normal [facility] Comment on above: Performed By: #### 1 [id number] #### [facility] [address] [id number] Number of Jars 1 Invalid Interpretation Code [facility] Comment on above: Performed By: #### 1 [id number] #### [facility] [address] [place] [address] Specimen Urine Normal [facility] Comment on above: Performed By: #### 1 [id number] #### [facility] [address] [place] [address] Type of Service Technical Only Normal [facility] Comment on above: Performed By: #### 1 [id number] #### [facility] [address] [place] [address] Urology Office/Clinic Noteon 08-18-2024 Urology Office/Clinic Note Urology Office/Clinic Note Chief Complaint 1 year follow up HPI Staff 89 year old male patient here for one year follow up. Previous DX: BPH with urinary obstruction, gross hematuria. *Flomax 0.4 mg BID-refill sent to [facility] IPSS 13 Current PSA 11.38 05/28/24 3x [...] qd. Possible SEs discussed. Rx sent to [facility]. Pt to call if cost prohibitive. -Cont [...] Joy Gutierrez, URL [facility] [address] [place] [phone] Additional Instructions: 3 mos (new med) Patient Education Urinary Frequency, Adult I, Kristie Squires, personally scribed for Dr. Zhang on 08/18/2024 10:38:18. . Documentation recorded by the phuongibKristie marion, accurately reflects the services(s) I performed and [...] mg oral tablet fluticasone 0.05 mg/inh Nasal [place] gabapentin 100 mg Cap, Oral, TID Iron [...] Years. Hous (more content not included)... Normal [facility] Comment on above: Result Comment: Elec tronically Signed By: Joy ZHANG MD\.br\Date and Time Signed: 08/18/24 10:51 EDT\.br\Electronically Co-Signed By: Kristie Squires\.br\Date and Time Co-Signed: 08/18/24 10:38 EDT\.br\Electronically Co-Signed By: Kristie Squires\.br\Date and Time Co-Signed: 08/18/24 10:40 EDT ALL CBC WITH AUTO DIFFon BASOPHILS ABSOLUTE AUTO 0.1 [facility] Basophils/100 WBC (Bld) 0.8 % 0.2 - 2.0 % [facility] Eosinophils/100 WBC (Bld) 3.9 % 0.9 - 7.0 % [facility] Erythrocyte distribution width (RBC) [Ratio] 13.6 % 11.0 - 15.0 % [facility] Hematocrit (Bld) [Volume fraction] 32.5 % Low 42.0 - 54.0 % [facility] Hemoglobin (Bld) [Mass/Vol] 10.4 g/dL Low 14.0 - 18.0 g/dL [facility] IMMATURE GRANULOCYTES ABS AUTO 0.02 [facility] Immature granulocytes/100 WBC (Bld) 0.3 % 0.0 - 0.5 % [facility] Interpretation and review of laboratory results Abnormal [facility] LYMPHOCYTES ABSOLUTE AUTO 1 Low [facility] Lymphocytes/100 WBC (Bld) 14.3 % Low 20.5 - 60.0 % [facility] MCH (RBC) [Entitic mass] 28.8 pg 25.9 - 34.0 pg [facility] MCHC (RBC) [Mass/Vol] 32 g/dL 29.9 - 35.2 g/dL [facility] MCV (RBC) [Entitic vol] 90 fL 80.0 - 94.0 fL [facility] MONOCYTES ABSOLUTE AUTO 0.5 [facility] Monocytes/100 WBC (Bld) 6.6 % 1.7 - 12.0 % [facility] NEUTROPHILS ABSOLUTE AUTO 5.4 [facility] Neutrophils/100 WBC (Bld) 74.1 % 43.0 - 75.0 % [facility] Platelet mean volume (Bld) [Entitic vol] 9.9 fL 9.5 - 13.5 fL [facility] TBH EO # 0.3 [facility] TB PLT 321 [facility] TB RBC 3.61 Low [facility] TB WBC 7.3 [facility] Office Visiton 03-31-2024 Follow-up visit [id number] Robin Paz 1935 M Date Provider Department [place] 03/31/2024 DANGELO KINSEY TED[facility] Family History Problem Relation Age of Onset Coronary artery disease Paternal Grandmother Family Status - Relation Status Age at Paternal Grandmother Level of Service:42173 DC OFFICE/OUTPATIENT ESTABLISHED MOD MDM 30 MIN Normal [facility] TBH UA (CLEAN/CATCH) MICROSC OPIC IF INDICATEon 05-29-2023 BILIRUBIN URINE Negative NEGATIVE [facility] BLOOD URINE TRACE-I NEGATIVE [facility] Clarity (U) CLEAR CLEAR [facility] Color (U) LT. YELLOW YELLOW [facility] GLUCOSE URINE UA Negative NEGATIVE mg/dL [facility] Ketones Ql (U) Negative NEGATIVE mg/dL [facility] Leukocyte esterase Test strip Ql (U) Negative NEGATIVE [facility] NITRITE URINE Negative NEGATIVE [facility] pH (U) 7.5 [pH] 5.0 - 9.0 [facility] PROTEIN URINE Negative NEG/TRACE mg/dL [facility] SPECIFIC GRAVITY URINE 1.015 1.005 - 1.025 [facility] URINE MICROSCOPIC INDICATED YES [facility] UROBILINOGEN URINE 0.2 EU/dL 0.2 - 1.0 EU/dL [facility] ECHOCARDIO M/2D COMPLETEon 0 06-21-2022 ECHOCARDIO M/2D COMPLETE Patient: ROBIN PAZ Exam Date: 06/21/2022 : 1935 Gender:M Ordering : DR DANGELO JAEGER M.D. Admission #: [id number] Family : JAYLON NICOLAS [facility] Order #: [id number] CLICK HERE TO VIEW EXAM ECHOCARDIOGRAM REPORT [...] 06/22/2022 at 13:[address] [facility] ISTAT XRay CREon 03-22-2022 Creatinine [Mass/Vol] 0.8 mg/dL Normal 0.6-1.3 [facility] Comment on above: Result Comment: ER/E SD physician is notified/shown all ISTAT results. Critical values may be confirmed by laboratory testing if deemed necessary by ER attending doctor. Performed By: #### I SCRE #### [address] Point of Care testing , ISTAT GFR ( > 60 Normal [facility] Comment on above: Result Comment: GFR estimated reference range: According to KDOQI guidelines, <60 ml/min/1.73m2 is sufficient to diagnose a patient with chronic kidney disease. PERFORMED BY: [place] [address] PATHOLOGIST WATER MAIN INSTALLER HELPER DORINDA FISHER M.D. Performed By: #### I SCRE #### [address] Point of Care testing , ISTAT GFR (Non- Am > 60 Normal [facility] Comment on above: Performed By: #### I SCRE #### [address] Point of Care testing , MR prostate wo/w conon 03-22 MR prostate wo/w con [facility] [place] [address] MRI Report Signed Patient: Robin Paz MR#: [id number] 76 : 1935 Acct:[id number] Age/Sex: 86 / M ADM Date: 03/22/22 Loc: MR Room: Type: [facility] Attending Dr: Joy Zhang MD Copies to: [...] recommended. Impression dictated by: Shahbaz Chahal Jr., D.O.03/22/2022 12:41 PM Dictation Location: [place] [address] Transcribed By: [facility] 03/22/22 1241 Dictated By: Shahbaz Chahal Jr DO 03/22/22 1228 Signed By: 03/22/22 1241 [facility] CBC AUTO DIFFon 10-13-2021 BASO # 0.1 103/ul Normal 0.0-0.1 [facility] Comment on above: Performed By: #### C BC #### [facility] [address] [address] [address] Jose Saenz Basophils/100 WBC (Bld) 0.8 % Normal 0.2-2.[address] [facility] Comment on above: Performed By: #### C BC #### [facility] [address] [place] [address] Dr. Jose Saenz EO # 0.4 103/ul Normal 0.0-0.[address] [facility] Comment on above: Performed By: #### C BC #### [facility] Laboratory [address] [place] [address] Dr. Jose Saenz Eosinophils/100 WBC (Bld) 5.8 % Normal 0.9-7.[address] [facility] Comment on above: Performed By: #### C BC #### [facility] [address] [place] [address] Dr. Jose Saenz Erythrocyte distribution width (RBC) [Ratio] 13.2 % Normal 11.0-15.[address] [facility] Comment on above: Performed By: #### C BC #### [facility] [address] [place] [address] Dr. Jose Saenz Hematocrit (Bld) [Volume fraction] 33.3 % Critically low 42.0-54.[address] [facility] Comment on above: Performed By: #### C BC #### [facility] [address] [place] [address] Dr. Jose Saenz Hemoglobin (Bld) [Mass/Vol] 10.6 g/dL Critically low 14.0-18.[address] [facility] Comment on above: Performed By: #### C BC #### [facility] [address] [place] [address] Dr. Jose Saenz IG # 0.03 10e3/ul Normal 0.00-0.[address] [facility] Comment on above: Performed By: #### C BC #### [facility] [address] [place] [address] Dr. Jose Saenz IG % 0.4 % Normal 0.0-0.[address] [facility] Comment on above: Performed By: #### C BC #### [facility] [address] [place] [address] Dr. Jose Saenz LYMPH # 1.4 103/ul Normal 1.2-3.[address] [facility] Comment on above: Performed By: #### C BC #### [facility] [address] [place] [address] Dr. Jose Saenz Lymphocytes/100 WBC (Bld) 18.9 % Critically low 20.5-60.[address] [facility] Comment on above: Performed By: #### C BC #### [facility] [address] [place] [address] Dr. Jose Saenz MANUAL DIFF REQ NO Normal [facility] Comment on above: Performed By: #### C BC #### [facility] [address] [place] [address] Dr. Jose Saenz MCH (RBC) [Entitic mass] 29.2 pg Normal 25.9-34.[address] [facility] Comment on above: Performed By: #### C BC #### [facility] [address] [place] [address] Dr. Jose Saenz MCHC (RBC) [Mass/Vol] 31.8 g/dL Normal 29.9-35.[address] [facility] Comment on above: Performed By: #### C BC #### [facility] [address] [place] [address] Dr. Jose Saenz MCV (RBC) [Entitic vol] 91.7 fL Normal 80.0-94.[address] [facility] Comment on above: Performed By: #### C BC #### [facility] [address] [place] [address] Dr. Jose Saenz MONO # 0.6 103/ul Normal 0.3-0.[address] [facility] Comment on above: Performed By: #### C BC #### [facility] [address] [place] [address] Dr. Jose Saenz Monocytes/100 WBC (Bld) 8.8 % Normal 1.7-12.0 [facility] Comment on above: Performed By: #### C BC #### [facility] [address] [place] [address] Dr. Jose Saenz NEUT # 4.7 103/ul Normal 1.4-6.5 [facility] Comment on above: Performed By: #### C BC #### [facility] [address] [address] [address] Jose Saenz Neutrophils/100 WBC (Bld) 65.3 % Normal 43.0-75.[address] [facility] Comment on above: Performed By: #### C BC #### [facility] [address] [address] [address] Jose Saenz Platelet mean volume (Bld) [Entitic vol] 11.2 fL Normal 9.5-13.[address] [facility] Comment on above: Performed By: #### C BC #### [facility] [address] [address] [address] Jose Saenz PLT 276 103/ul Normal 150-[address] [facility] Comment on above: Performed By: #### C BC #### [facility] [address] [place] [address] Dr. Jose Saenz RBC 3.63 106/ul Critically low 4.70-6.10 [facility] Comment on above: Performed By: #### C BC #### [facility] [address] [place] [address] Dr. Jose Saenz WBC 7.2 103/ul Normal 4.0-11.[address] [facility] Comment on above: Performed By: #### C BC #### [facility] [address] [place] [address] Dr. Jose Saenz PROF 14(COMP METB)on 022 Albumin [Mass/Vol] 3.3 g/dL Critically low 3.4-5.0 [facility] Comment on above: Performed By: #### C MP #### [facility] [address] [place] [address] Dr. Jose Saenz Albumin/Globulin [Mass ratio] 0.9 {ratio} Normal [facility] Comment on above: Performed By: #### C MP #### [facility] [address] [place] [address] Dr. Jose Saenz ALP [Catalytic activity/Vol] 72 U/L Normal 46-[address] [facility] Comment on above: Performed By: #### C MP #### [facility] [address] [address] [address] Jose Saenz ALT [Catalytic activity/Vol] 28 U/L Normal 16-[address] [facility] Comment on above: Performed By: #### C MP #### [facility] [address] [address] [address] Jose Saenz Anion gap [Moles/Vol] 10.0 mmol/L Normal [facility] Comment on above: Performed By: #### C MP #### [facility] [address] [address] [address] Jose Saenz AST [Catalytic activity/Vol] 21 U/L Normal 15-[address] [facility] Comment on above: Performed By: #### C MP #### [facility] [address] [place] [address] Dr. Jose Saenz Bilirubin [Mass/Vol] 0.4 mg/dL Normal 0.2-1.[address] [facility] Comment on above: Performed By: #### C MP #### [facility] [address] [place] [address] Dr. Jose Saenz Calcium [Mass/Vol] 8.8 mg/dL Normal 8.5-10.1 [facility] Comment on above: Performed By: #### C MP #### [facility] [address] [place] [address] Dr. Jose Saenz Chloride [Moles/Vol] 102 mmol/L Normal 98-107 [facility] Comment on above: Performed By: #### C MP #### [facility] [address] [address] [address] Jose Saenz CO2 [Moles/Vol] 32.0 mmol/L Normal 21.0-32.0 [facility] Comment on above: Performed By: #### C MP #### [facility] [address] [place] [address] Dr. Jose Saenz Creatinine [Mass/Vol] 0.82 mg/dL Normal 0.70-1.[address] [facility] Comment on above: Performed By: #### C MP #### [facility] [address] [address] [address] Jose Saenz EGFR-AF ANGOLAN >60 Normal >=60 [facility] Comment on above: Performed By: #### C MP #### [facility] [address] [address] [address] Jose Saenz EGFR-NON AF ANGOLAN >60 Normal >=[address] [facility] Comment on above: Performed By: #### C MP #### [facility] [address] [address] [address] Jose Saenz Globulin (S) [Mass/Vol] 3.7 g/dL Normal [facility] Comment on above: Performed By: #### C MP #### [facility] [address] [address] [address] Jose Saenz Glucose [Mass/Vol] 86 mg/dL Normal 74-106 [facility] Comment on above: Performed By: #### C MP #### [facility] [address] [address] [address] Jose Saenz Potassium [Moles/Vol] 5.0 mmol/L Normal 3.5-5.1 [facility] Comment on above: Performed By: #### C MP #### [facility] [address] [address] [address] Jose Saenz Protein [Mass/Vol] 7.0 g/dL Normal 6.4-8.2 [facility] Comment on above: Performed By: #### C MP #### [facility] [address] [address] [address] Jose Saenz Sodium [Moles/Vol] 139 mmol/L Normal 136-145 [facility] Comment on above: Performed By: #### C MP #### [facility] [address] [address] [address] Jose Saenz Urea nitrogen [Mass/Vol] 11.0 mg/dL Normal 7.0-18.[address] [facility] Comment on above: Performed By: #### C MP #### [facility] [address] [address] [address] Jose Saenz Urea nitrogen/Creatinine [Mass ratio] 13.4 mg/mg Normal [facility] Comment on above: Performed By: #### C MP #### [facility] [address] [address] [address] Jose Saenz UA RANDOM W/MICROSCOPICon BACTERIA TRACE Abnormal NONE SEEN [facility] Comment on above: Performed By: #### U AMIC ####[facility] [address] [address]Dr. Jose Saenz Bilirubin Ql (U) Negative Normal NEGATIVE [facility] Comment on above: Performed By: #### U AMIC ####[facility] [address] [address]Dr. Jose Saenz CAST NONE SEEN Normal NONE SEEN [facility] Comment on above: Performed By: #### U AMIC ####[facility] [address] [address]Dr. Jose Saenz Clarity (U) CLEAR Normal CLEAR [facility] Comment on above: Performed By: #### U AMIC ####[facility] [address] [address]Dr. Jose Saenz Color (U) LT. YELLOW Normal YELLOW [facility] Comment on above: Performed By: #### U AMIC ####[facility] [address] [address]Dr. Jose Saenz Crystals LM Nom (Urine sed) NONE SEEN Normal NONE SEEN [facility] Comment on above: Performed By: #### U AMIC ####[facility] [address] [address]Dr. Jose Saenz Epithelial cells LM Ql (Urine sed) RARE Normal NONE SEEN /RARE [facility] Comment on above: Performed By: #### U AMIC ####[facility] [address] [place], [place] [address]Dr. Jose Saenz Glucose Ql (U) Negative Normal NEGATIVE [facility] Comment on above: Performed By: #### U AMIC ####[facility] [address] [place], [place] [address]Dr. Jose Saenz Hemoglobin Ql (U) Negative Normal NEGATIVE [facility] Comment on above: Performed By: #### U AMIC ####[facility] [address] [address]Dr. Silvanaamisha Saenz Ketones Ql (U) Negative Normal NEGATIVE [facility] Comment on above: Performed By: #### U AMIC ####[facility] [address] [address]Dr. Jose Saenz LEUKOCYTES Negative Normal NEGATIVE [facility] Comment on above: Performed By: #### U AMIC ####[facility] [address] [place] [address]Dr. Jose Saenz MUCOUS NONE SEEN Normal NONE SEEN [facility] Comment on above: Performed By: #### U AMIC ####[facility] [address] [place], [place] [address]Dr. Jose Saenz Nitrite Ql (U) Negative Normal NEGATIVE [facility] Comment on above: Performed By: #### U AMIC ####[facility] [address] [place], [place] [address]Dr. Jose Saenz pH (U) 6.5 [pH] Normal 5-9 [facility] Comment on above: Performed By: #### U AMIC ####[facility] [address] [place], [place] [address]Dr. Jose Saenz RBC NONE SEEN Abnormal 0-2 [facility] Comment on above: Performed By: #### U AMIC ####[facility] [address] [place], [place] [address]Dr. Jose Saenz SPEC GRAVITY <=1.005 Abnormal 1.005-<=1.025 [facility] Comment on above: Performed By: #### U AMIC ####[facility] Us[address] [place], [place] [address]Dr. Jose Saenz UA PROTEIN Negative Normal NEGATIVE/ TRACE [facility] Comment on above: Performed By: #### U AMIC ####[facility] Q[address] [place], [place] [address]Dr. Jose Saenz Urobilinogen Qn (U) 0.2 {Sammy'U}/dL Normal 0.2 - 1. [address] [facility] Comment on above: Performed By: #### U AMIC ####[facility] [address] [place], [place] [address]QpDr. Jose Saenz WBC NONE SEEN Normal NONE SEEN [facility] Comment on above: Performed By: #### U AMIC ####[facility] F[address] [place], [place] [address]RjDr. Jose Saenz VITAMIN B12on 10-13-2021 Cobalamin (Vitamin B12) [Mass/Vol] 405.0 pg/mL Normal 193.0-986.[address] [facility] Comment on above: Performed By: #### V ITB12, PSASC #### [facility] [address] [place], [place] [address] Dr. Jose Saenz Covid-19 PCR (CVDTB)on SARS-CoV-2 (COVID-19) RNA DANIKA+probe Ql (Unsp spec) Not detected Normal NOT DETECTED [facility] Comment on above: Result Comment: When diagnostic [...] for this test is supported by the [employer] of Health and Human Service's declaration that [...] be used). Performed By: #### C VDTBH ####[facility] [address] [place], [place] [address]HoDr. Jose Saenz GROUP A STREP CULTUREon S. pyogenes Ag Ql (Unsp spec) Culture Observations: NEGATIVE FOR GROUP A STREPTOCOCCUS. Normal [facility] Comment on above: Performed By: #### G RASTCX SSCRN #### [facility] [address] [address] [address] Jose Saenz STREPT SCREENon 09-17-2021 STREP SCREEN A Negative Normal NEGATIVE [facility] Comment on above: Performed By: #### G RASTCX SSCRN #### [facility] [address] [address] [address] Jose Saenz CBC AUTO DIFFon 07-26-2021 BASO # 0.1 103/ul Normal 0.0-0.[address] [facility] Comment on above: Performed By: #### C BC ####[facility] [address] [address]DrFranklin Saenz Basophils/100 WBC (Bld) 1.1 % Normal 0.2-2.[address] [facility] Comment on above: Performed By: #### C BC ####[facility] [address] [place], [place] [address]DrFranklin Saenz EO # 0.3 103/ul Normal 0.0-0.[address] [facility] Comment on above: Performed By: #### C BC ####[facility] Copujb[address]ax[address] [place], [place] [address]DrFranklin Saenz Eosinophils/100 WBC (Bld) 5.3 % Normal 0.9-7.[address] [facility] Comment on above: Performed By: #### C BC ####[facility] [address] [place] [address]DrFranklin Saenz Erythrocyte distribution width (RBC) [Ratio] 13.5 % Normal 11.0-15.0 [facility] Comment on above: Performed By: #### C BC ####[facility] [address]jsp[address] [place] [address]DrFranklin Saenz Hematocrit (Bld) [Volume fraction] 33.9 % Critically low 42.0-54.[address] [facility] Comment on above: Performed By: #### C BC ####[facility] [address] [place], [place] [address]Dr. Jose Saenz Hemoglobin (Bld) [Mass/Vol] 11.1 g/dL Critically low 14.0-18.0 [facility] Comment on above: Performed By: #### C BC ####[facility] [address] [address]Dr. Jose Saenz IG # 0.02 10e3/ul Normal 0.00-0.03 [facility] Comment on above: Performed By: #### C BC ####[facility] X[address] [place], [place] [address]Dr. Jose Saenz IG % 0.4 % Normal 0.0-0.5 [facility] Comment on above: Performed By: #### C BC ####[facility] Copj[address]hdrs[address] [place], [place] [address]Dr. Jose Saenz LYMPH # 1.5 103/ul Normal 1.2-3.8 [facility] Comment on above: Performed By: #### C BC ####[facility] Cxipyqzjtp[address] [place], [place] [address]Dr. Jose Saenz Lymphocytes/100 WBC (Bld) 28.5 % Normal 20.5-60.0 [facility] Comment on above: Performed By: #### C BC ####[facility] Ebeg[address]ozk[address] [place], [place] [address]Dr. Jose Saenz MANUAL DIFF REQ NO Normal [facility] Comment on above: Performed By: #### C BC ####[facility] T[address]wpmh[address] [place], [place] [address]Dr. Jose Saenz MCH (RBC) [Entitic mass] 29.7 pg Normal 25.9-34.0 [facility] Comment on above: Performed By: #### C BC ####[facility] Vcaohcenum[address] [place], [place] [address]Dr. Jose Saenz MCHC (RBC) [Mass/Vol] 32.7 g/dL Normal 29.9-35.2 [facility] Comment on above: Performed By: #### C BC ####[facility] Apfcbtxlwl[address] [place], [place] [address]Dr. Jose Saenz MCV (RBC) [Entitic vol] 90.6 fL Normal 80.0-94.0 [facility] Comment on above: Performed By: #### C BC ####[facility] Qxtao[address]asi[address] [place], [place] [address]DrFranklin Jose Saenz MONO # 0.4 103/ul Normal 0.3-0.8 [facility] Comment on above: Performed By: #### C BC ####[facility] Ubbdoqeftr[address] [place], [place] [address]DrFranklin Jose Dany Monocytes/100 WBC (Bld) 7.2 % Normal 1.7-12.0 [facility] Comment on above: Performed By: #### C BC ####[facility] [address]otlsylr[address] [place], [place] [address]DrFranklin Jose Saenz NEUT # 3.0 103/ul Normal 1.4-6.5 [facility] Comment on above: Performed By: #### C BC ####[facility] [address]sunlbrl[address] [place], [place] [address]DrFranklin Jose Dany Neutrophils/100 WBC (Bld) 57.5 % Normal 43.0-75.0 [facility] Comment on above: Performed By: #### C BC ####[facility] [address]bi[address]tzaf[address] [place], [place] [address]DrFranklin Jose Dany Platelet mean volume (Bld) [Entitic vol] 9.8 fL Normal 9.5-13.5 [facility] Comment on above: Performed By: #### C BC ####[facility] Kekymx[address]lu[address] [place], [place] [address]Dr. Jose Dany PLT 276 103/ul Normal 150-450 [facility] Comment on above: Performed By: #### C BC ####[facility] [address] [place], [place] [address]DrFranklin Pinaamisha Dany RBC 3.74 106/ul Critically low 4.70-6.10 [facility] Comment on above: Performed By: #### C BC ####[facility] X[address]kn[address] [place], [place] [address]DrFranklin Saenz WBC 5.3 103/ul Normal 4.0-11.[address] [facility] Comment on above: Performed By: #### C BC ####[facility] [address] [place] [id number]. Jose Saenz GLYCOHEMOGLOBIN A1Con 2021 ADA RECOMMENDATION ADA THERAPEUTIC TARGET 6.0 - 7.0 ACTION SUGGESTED > 7.[address] [facility] Comment on above: Performed By: #### A 1C #### [facility] [address] [address] [address] Jose Saenz Glucose [Mass/Vol] 120 mg/dL Normal [facility] Comment on above: Performed By: #### A 1C #### [facility] [address] [address] [address] Jose Saenz HbA1c (Bld) [Mass fraction] 5.8 % Normal <=6.[address] [facility] Comment on above: Performed By: #### A 1C #### [facility] [address] [address] [address] Jose Saenz LIPID PROFILEon 07-26-2021 CHOL-HDL RATIO NORM SEE BELOW Normal [facility] [place] [facility] Comment on above: Result Comment: 3.3 - 4.4 LOW RISK 4.4 - 7.1 AVERAGE RISK 7.1 - 11.0 MODERATE RISK >11.0 HIGH RISK Performed By: #### C MP, TSH, LIPID ####[facility] [address] [place] [id number]. Jose Saenz Cholesterol [Mass/Vol] 177 mg/dL Normal <=[address] [facility] Comment on above: Performed By: #### C MP, TSH, LIPID ####[facility] [address] [place] [id number]. Joes Saenz Cholesterol in HDL [Mass/Vol] 63 mg/dL Critically high 40-[address] [facility] Comment on above: Performed By: #### C MP, TSH, LIPID ####[facility] [address] [place] [id number]. Jose Saenz Cholesterol in LDL [Mass/Vol] 93.8 mg/dL Normal [facility] Comment on above: Performed By: #### C MP, TSH, LIPID ####[facility] [address] [place] [id number]. Jose Saenz Cholesterol.total/Ch olesterol in HDL [Mass ratio] 2.8 {ratio} Normal [facility] Comment on above: Performed By: #### C MP, TSH, LIPID ####[facility] [address] [place] [address]Dr. Jose Saenz HDL NORMAL > or = 60 mg/dl - LOW CARDIOVASCULAR RISK <40 mg/dl - HIGH CARDIOVASCULAR RISK Normal [facility] Comment on above: Performed By: #### C MP, TSH, LIPID ####[facility] [address] [place] [address]Dr. Jose Saenz LDL CALC NORMAL SEE BELOW Normal [facility] Comment on above: Result Comment: <100 mg/dl OPTIMAL 100 - 129 mg/dl NEAR OR ABOVE OPTIMAL 130 - 159 mg/dl BORDERLINE HIGH 160 - 189 mg/dl HIGH >190 mg/dl VERY HIGH Performed By: #### C MP, TSH, LIPID ####[facility] [address] [place] [address]Dr. Jose Saenz Triglyceride [Mass/Vol] 101 mg/dL Normal <=[address] [facility] Comment on above: Performed By: #### C MP, TSH, LIPID ####[facility] [address]ds[address] [place] [address]Dr. Jose Saenz VLDL CALC 20.2 mg/dL Normal [facility] Comment on above: Performed By: #### C MP, TSH, LIPID ####[facility] [address] [place] [id number]. Jose Saenz PROF 14(COMP METB)on 022 Albumin [Mass/Vol] 3.3 g/dL Critically low 3.4-5.0 [facility] Comment on above: Performed By: #### C MP, TSH, LIPID ####[facility] [address] [place] [address]Dr. Jose Saenz Albumin/Globulin [Mass ratio] 1.0 {ratio} Normal [facility] Comment on above: Performed By: #### C MP, TSH, LIPID ####[facility] [address]jo[address] [place] [address]Dr. Jose Saenz ALP [Catalytic activity/Vol] 80 U/L Normal 46-[address] [facility] Comment on above: Performed By: #### C MP, TSH, LIPID ####[facility] [address] [place] [address]Dr. Jose Saenz ALT [Catalytic activity/Vol] 22 U/L Normal 16-[address] [facility] Comment on above: Performed By: #### C MP, TSH, LIPID ####[facility] L[address]vfom[address] [place] [address]Dr. Jose Saenz Anion gap [Moles/Vol] 10.1 mmol/L Normal [facility] Comment on above: Performed By: #### C MP, TSH, LIPID ####[facility] [address]ir[address] [place], [place] [address]Dr. Silvanaamisha Saenz AST [Catalytic activity/Vol] 19 U/L Normal 15-[address] [facility] Comment on above: Performed By: #### C MP, TSH, LIPID ####[facility] Nshelit[address]of[address] [place], [place] [address]Dr. Silvanaamisha Saenz Bilirubin [Mass/Vol] 0.5 mg/dL Normal 0.2-1.[address] [facility] Comment on above: Performed By: #### C MP, TSH, LIPID ####[facility] [address] [place] [address]Dr. Jose Saenz Calcium [Mass/Vol] 8.3 mg/dL Critically low 8.5-10.1 Th [facility] Comment on above: Performed By: #### C MP, TSH, LIPID ####[facility] [address]uf[address] [place], [place] [address]Dr. Silvanaamisha Saenz Chloride [Moles/Vol] 104 mmol/L Normal 98-[address] [facility] Comment on above: Performed By: #### C MP, TSH, LIPID ####[facility] [address]rt[address] [place] [address]Dr. Jose Saenz CO2 [Moles/Vol] 31.5 mmol/L Critically high 22.0-30.[address] [facility] Comment on above: Performed By: #### C MP, TSH, LIPID ####[facility] [address] [place] [address]Dr. Jose Saenz Creatinine [Mass/Vol] 0.77 mg/dL Normal 0.66-1.[address] [facility] Comment on above: Performed By: #### C MP, TSH, LIPID ####[facility] [address] [place] [address]Dr. Jose Saenz EGFR-AF ANGOLAN >60 Normal >=60 [facility] Comment on above: Performed By: #### C MP, TSH, LIPID ####[facility] [address]be[address] [place] [address]Dr. Jose Saenz EGFR-NON AF ANGOLAN >60 Normal >=[address] [facility] Comment on above: Performed By: #### C MP, TSH, LIPID ####[facility] [id number] [place] [address]Dr. Jose Saenz Globulin (S) [Mass/Vol] 3.2 g/dL Normal [facility] Comment on above: Performed By: #### C MP, TSH, LIPID ####[facility] [id number] [address]Dr. Jose Saenz Glucose [Mass/Vol] 87 mg/dL Normal 74-106 [facility] Comment on above: Performed By: #### C MP, TSH, LIPID ####[facility] [id number] [address]Dr. Jose Saenz Potassium [Moles/Vol] 4.6 mmol/L Normal 3.4-5.0 [facility] Comment on above: Performed By: #### C MP, TSH, LIPID ####[facility] [id number] [place] [address]Dr. Jose Saenz Protein [Mass/Vol] 6.5 g/dL Normal 6.1-8.2 [facility] Comment on above: Performed By: #### C MP, TSH, LIPID ####[facility] [id number] [place], [place] [address]Vl. Jose Saenz Sodium [Moles/Vol] 141 mmol/L Normal 137-145 [facility] Comment on above: Performed By: #### C MP, TSH, LIPID ####[facility] [id number] [place] [address]Dr. Jose Saenz Urea nitrogen [Mass/Vol] 9.0 mg/dL Normal 7.0-18.[address] [facility] Comment on above: Performed By: #### C MP, TSH, LIPID ####[facility] [id number] [place] [id number]. oJse Saenz Urea nitrogen/Creatinine [Mass ratio] 11.7 mg/mg Normal [facility] Comment on above: Performed By: #### C MP, TSH, LIPID ####[facility] [id number] [place] [address]DrFranklin Saenz TSHon 07-26-2021 TSH 2.304 uIU/mL Normal 0.470-4.680 [facility] Comment on above: Performed By: #### C MP, TSH, LIPID #### [facility] [address] [address] [address] Jose Saenz TSH RANGE SEE BELOW Normal [facility] Comment on above: Result Comment: <0.3 4 UIU/ml HYPERTHYROID 0.34-5.60 UIU/ml EUTHYROID >5.60 UIU/ml HYPOTHYROID Performed By: #### C MP, TSH, LIPID #### [facility] [address] [address] [address] Jose Saenz BASIC METABOLIC PANELon 02-15 Calcium [Mass/Vol] 8.7 mg/dL Normal 8.6-10.3 [facility] Comment on above: Performed By: #### 0 0071 #### [facility] [address] [place] [address], [place] Chloride [Moles/Vol] 104 mmol/L Normal 98-107 [facility] Comment on above: Performed By: #### 0 0071 #### [facility] [address] [place] [address], [place] CO2 [Moles/Vol] 29 mmol/L Normal 21-31 [facility] Comment on above: Performed By: #### 0 0071 #### [facility] [address] [place] [address], [place] Creatinine [Mass/Vol] 0.69 mg/dL Low 0.70-1.30 [facility] Comment on above: Performed By: #### 0 0071 #### [facility] [address] [place] [address], [place] GFR/1.73 sq M.predicted among blacks MDRD (S/P/Bld) [Vol rate/Area] mL/min/{1.73_m2} Normal >60 [facility] Comment on above: Result Comment: Calc ulation may not be valid for patients over 70 years Performed By: #### 0 0071 #### [facility] [address] [place] [address], [place] GFR/1.73 sq M.predicted among non-blacks MDRD (S/P/Bld) [Vol rate/Area] mL/min/{1.73_m2} Normal >60 [facility] Comment on above: Result Comment: Calc ulation may not be valid for patients over 70 years Performed By: #### 0 0071 #### [facility] [address] [place] [address], [place] Glucose [Mass/Vol] 97 mg/dL Normal 70-100 [facility] Comment on above: Performed By: #### 0 0071 #### [facility] [address] [place] [address], [place] Potassium [Moles/Vol] 4.0 mmol/L Normal 3.5-5.1 [facility] Comment on above: Performed By: #### 0 0071 #### [facility] [address] [place] [address], [place] Sodium [Moles/Vol] 139 mmol/L Normal 136-145 [facility] Comment on above: Performed By: #### 0 0071 #### [facility] [address] [place] [address], [facility] Urea nitrogen [Mass/Vol] 10 mg/dL Normal 7-25 [facility] Comment on above: Performed By: #### 0 0071 #### [facility] [address] [place] [address], [facility] CBC COMPLETE BLOOD COUNTon 05-08-2020 Erythrocyte distribution width (RBC) [Ratio] 13.2 % Normal 11.5-15.0 [facility] Comment on above: Performed By: #### 5 [id number] #### [facility] [address] [place] [address], [facility] Hematocrit (Bld) [Volume fraction] 34.6 % Low 39.0-50.0 [facility] Comment on above: Performed By: #### 5 [id number] #### [facility] [address] [facility] [place] [address], [facility] Hemoglobin (Bld) [Mass/Vol] 11.4 g/dL Low 13.0-17.0 [facility] Comment on above: Performed By: #### 5 [id number] #### [facility] [address] [place] [address], [facility] MCH (RBC) [Entitic mass] 29.8 pg Normal 27.0-33.0 [facility] Comment on above: Performed By: #### 5 [id number] #### [facility] [address] [place] [address], [facility] MCHC (RBC) [Mass/Vol] 32.9 g/dL Normal 32.0-35.0 [facility] Comment on above: Performed By: #### 5 [id number] #### [facility] [address] [place] MCV (RBC) [Entitic vol] 90.3 fL Normal 82.0-98.0 [facility] Comment on above: Performed By: #### 5 [id number] #### [facility] [address] [facility] [place] [address], [facility] Nucleated RBC/100 WBC (Bld) [Ratio] 0 % Normal 0-0 [facility] Comment on above: Performed By: #### 5 [id number] #### [facility] [address] [place] [address], [facility] PLAT CNT 310 10*3/uL Normal 150-400 [facility] Comment on above: Performed By: #### 5 [id number] #### [facility] [address] [facility] [place] [address], [facility] RBC (Bld) [#/Vol] 3.83 10*6/uL Low 4.20-5.70 [facility] Comment on above: Performed By: #### 5 [id number] #### [facility] [address] [facility] [place] [address], [facility] WBC (Bld) [#/Vol] 6.55 10*3/uL Normal 4.00-10.60 [facility] Comment on above: Performed By: #### 5 [id number] #### [facility] [address] [facility]. [address] TYPE AND CROSSMATCHon 2020 ABO INTERPRETATION A Normal [facility] Comment on above: Performed By: #### 6 [id number] #### [facility] [address] [facility] [place] [address], [facility] RH INTERPRETATION Positive Normal [facility] [place] Comment on above: Performed By: #### [id number] #### [facility] [address] Vital Signs Date Time Vital Sign Value Performing Clinician Facility 11-25-2024 13:05-0400 Body mass index (BMI) [Ratio] 22.19 kg/m2 Luciaan Josehholz BULB TESTER Work Phone: [facility] 11-25-2024 13:05-0400 Body temperature 97.5 [degF] Luciana Aichholz BULB TESTER Work Phone: [facility] 11-25-2024 13:05-0400 Body weight 74.21 kg Luciana Aichholz BULB TESTER Work Phone: [facility] 11-25-2024 13:05-0400 Diastolic blood pressure 76 mm[Hg] Luciana Aichholz BULB TESTER Work Phone: [facility] 11-25-2024 13:05-0400 Heart rate 78 /min Luciana Aichholz BULB TESTER Work Phone: [facility] 11-25-2024 13:05-0400 Respiratory rate 18 /min Luciana Aichholz BULB TESTER Work Phone: [facility] 11-25-2024 13:05-0400 SaO2% (BldA) [Mass fraction] 97 % Luciana Aichholz BULB TESTER Work Phone: [facility] 11-25-2024 13:05-0400 Systolic blood pressure 144 mm[Hg] Luciana Aichholz BULB TESTER Work Phone: [facility] 08-26-2024 13:28-0400 Body mass index (BMI) [Ratio] 21.94 kg/m2 Luciana Aichholz BULB TESTER Work Phone: [facility] 08-26-2024 13:28-0400 Body temperature 98.1 [degF] Luciana Aichholz BULB TESTER Work Phone: [facility] 08-26-2024 13:28-0400 Body weight 73.39 kg Luciana Aichholz BULB TESTER Work Phone: [facility] 08-26-2024 13:28-0400 Diastolic blood pressure 66 mm[Hg] Luciana Aichholz BULB TESTER Work Phone: [facility] 08-26-2024 13:28-0400 Heart rate 87 /min Luciana Aichholz BULB TESTER Work Phone: [facility] 08-26-2024 13:28-0400 Respiratory rate 19 /min Luciana Aichholz BULB TESTER Work Phone: [facility] 08-26-2024 13:28-0400 SaO2% (BldA) [Mass fraction] 95 % Luciana Aichholz BULB TESTER Work Phone: [facility] 08-26-2024 13:28-0400 Systolic blood pressure 124 mm[Hg] Luciana Aichholz BULB TESTER Work Phone: [facility] 05-28-2024 10:57-0500 Body mass index (BMI) [Ratio] 21.94 kg/m2 Luciana Aichholz BULB TESTER Work Phone: [facility] 05-28-2024 10:57-0500 Body temperature 97.59 [degF] Luciana Aichholz BULB TESTER Work Phone: [facility] 05-28-2024 10:57-0500 Body weight 73.39 kg Luciana Aichholz BULB TESTER Work Phone: [facility] 05-28-2024 10:57-0500 Diastolic blood pressure 60 mm[Hg] Luciana Aichholz BULB TESTER Work Phone: [facility] 05-28-2024 10:57-0500 Heart rate 65 /min Luciana Aichholz BULB TESTER Work Phone: [facility] 05-28-2024 10:57-0500 Respiratory rate 18 /min Luciana Aichholz BULB TESTER Work Phone: [facility] 05-28-2024 10:57-0500 SaO2% (BldA) [Mass fraction] 98 % Luciana Aichholz BULB TESTER Work Phone: [facility] 05-28-2024 10:57-0500 Systolic blood pressure 108 mm[Hg] Luciana Aichholz BULB TESTER Work Phone: [facility] 04-01-2024 13:26-0500 Body height 182.9 cm Luciana Gonzalezholz BULB TESTER Work Phone: [facility] 04-01-2024 13:26-0500 Body mass index (BMI) [Ratio] 22.22 kg/m2 Lucianajovon Garciahholz BULB TESTER Work Phone: [facility] 04-01-2024 13:26-0500 Body temperature 98.1 [degF] Luciana Garciamaggiez BULB TESTER Work Phone: [facility] 04-01-2024 13:26-0500 Body weight 74.3 kg Luciana Gonzalezholz BULB TESTER Work Phone: [facility] 04-01-2024 13:26-0500 Diastolic blood pressure 68 mm[Hg] Luciana Josehholz BULB TESTER Work Phone: [facility] 04-01-2024 13:26-0500 Heart rate 71 /min Luciana Garciamaggiez BULB TESTER Work Phone: [facility] 04-01-2024 13:26-0500 Respiratory rate 18 /min Luciana Josehholz BULB TESTER Work Phone: [facility] 04-01-2024 13:26-0500 SaO2% (BldA) [Mass fraction] 99 % Lucianajovon Garciamaggiez BULB TESTER Work Phone: [facility] 04-01-2024 13:26-0500 Systolic blood pressure 110 mm[Hg] Luciana Carlosholz BULB TESTER Work Phone: [facility] 12-01-2022 09:09-0400 Blood Pressure Location Joy ZHANG [facility] 12-01-2022 09:09-0400 Diastolic blood pressure 78 mm[Hg] Joy ZHANG [facility] 12-01-2022 09:09-0400 Heart rate 74 /min Joy ZHANG [facility] 12-01-2022 09:09-0400 Systolic blood pressure 128 mm[Hg] Joy ZHANG [facility] 06-02-2022 10:56-0500 Blood Pressure Location Joy ZHANG [facility] 06-02-2022 10:56-0500 Diastolic blood pressure 70 mm[Hg] Joy ZHANG [facility] 06-02-2022 10:56-0500 Heart rate 65 /min Joy ZHANG [facility] 06-02-2022 10:56-0500 Respiratory rate 16 /min Joy ZHANG [facility] 06-02-2022 10:56-0500 Systolic blood pressure 114 mm[Hg] Joy ZHANG [facility] 12-12-2021 11:49-0400 Blood Pressure Location Joy ZHANG [facility] 12-12-2021 11:49-0400 Diastolic blood pressure 85 mm[Hg] Joy ZHANG [facility] 12-12-2021 11:49-0400 Heart rate 75 /min Joy ZHANG [facility] 12-12-2021 11:49-0400 Respiratory rate 16 /min Joy ZHANG [facility] 12-12-2021 11:49-0400 Systolic blood pressure 125 mm[Hg] Joy ZHANG [facility] Encounters Encounter Date Encounter Type Care Provider Facility Start: 05-29-2025 ambulatory Joy Gutierrez MILKA Facili ty:[facility] Start: 11-25-2024 End: 11-25-2024 ambulatory LUCIANA NICOLAS Not Available Start: 11-25-2024 End: 11-25-2024 Office outpatient visit 25 minutes Luciana Nicolas BULB TESTER Work Phone: [facility] Comment on above: Paroxysmal atrial fi brillation (HCC) (Primary Dx); Primary hypertension ; 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); Phantom limb syndrome with pain (HCC); Iron deficiency anemia, unspecified iron deficiency anemia type; Gastroenteritis Start: 11-24-2024 End: 11-24-2024 ambulatory Joydaisy ZHANG Facility:[facility] Start: 11-24-2024 End: 11-24-2024 Patient encounter procedure Joy R MILKA [facility] Start: 11-04-2024 End: 11-07-2024 Refill Luciana Nicolas BULB TESTER Work Phone: [facility] Comment on above: Iron deficiency anem ia, unspecified iron deficiency anemia type 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); Phantom limb syndrome with pain (HCC) Start: 09-22-2024 End: 09-22-2024 Refill Luciana Nicolas BULB TESTER Work Phone: [facility] Comment on above: Phantom pain Start: 08-26-2024 End: 08-26-2024 Telephone encounter Luciana Nicolas NP Work Phone: [facility] Start: 08-26-2024 End: 08-26-2024 Office outpatient visit 25 minutes Luciana Nicolas BULB TESTER Work Phone: [facility] Comment on above: 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) (Primary Dx); Phantom limb syndrome with pain (CMS/HCC); Primary hypertension (CMS/HCC); 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 (CMS/HCC); Elevated PSA, between 10 and less than 20 ng/ml Start: 08-26-2024 End: 08-26-2024 ambulatory LUCIANA AICHHOLZ Not Available Start: 08-18-2024 End: 08-18-2024 ambulatory Joy ZHANG Facility:[facility] Start: 08-18-2024 End: 08-18-2024 Lab Drop off Joy ZHANG [facility] Start: 08-18-2024 End: 08-18-2024 ambulatory Joy ZHANG Facility:[facility] Start: 08-11-2024 End: 08-11-2024 Refill Luciana Aichholz BULB TESTER Work Phone: [facility] Comment on above: Phantom pain Start: 06-25-2024 End: 06-25-2024 Refill Luciana Aichholz BULB TESTER Work Phone: [facility] Comment on above: Phantom pain Start: 05-30-2024 End: 05-30-2024 Refill Luciana Aichholz BULB TESTER Work Phone: [facility] Comment on above: Vitamin D deficiency (Primary Dx); Iron deficiency anemia, unspecified iron deficiency anemia type Start: 05-29-2024 End: 05-29-2024 Refill Luciana Aichholz BULB TESTER Work Phone: [facility] Start: 05-28-2024 End: 05-28-2024 Bamboo flowsheet Luciana Aichholz BULB TESTER Work Phone: [facility] Start: 05-28-2024 End: 05-28-2024 Bamboo flowsheet Luciana Aichholz BULB TESTER Work Phone: [facility] Start: 05-28-2024 End: 05-28-2024 Clinisync Result Encounter Luciana Fidencio BULB TESTER Work Phone: [facility] External Department Unsolicited Start: 05-28-2024 End: 05-28-2024 Patient encounter procedure Luciana Nicolas NP Work Phone: [facility] Comment on above: Encounter for subseq uent annual wellness visit (AWV) in Medicare patient (Primary Dx); Pulmonary hypertension, unspecified (CMS/HCC); Crohn's disease of small intestine without complications (CMS/HCC); Phantom limb syndrome with pain (CMS/HCC); Crohn's disease of large intestine without complications (CMS/HCC); 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 (CMS/HCC); 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); 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; Benign prostatic hyperplasia with lower urinary tract symptoms, symptom details unspecified; Elevated PSA, between 10 and less than 20 ng/ml; Vitamin B12 deficiency; Vitamin D deficiency; Primary hypertension (CMS/HCC); Phantom pain Start: 05-28-2024 End: 05-28-2024 ambulatory LUCIANA NICOLAS Not Available Start: 05-13-2024 End: 05-13-2024 Refill Luciana Nicolas NP Work Phone: [facility] Comment on above: Phantom pain (Primar y Dx) Start: 04-01-2024 End: 04-01-2024 Bamboo flowsheet Luciana Nicolas NP Work Phone: [facility] Start: 04-01-2024 End: 04-01-2024 Bamboo flowsheet Luciana Nicolas BULB TESTER Work Phone: [facility] Start: 04-01-2024 End: 04-01-2024 Office outpatient visit 25 minutes Luciana Nicolas NP Work Phone: [facility] Comment on above: Phantom pain (Primar y Dx); Pulmonary hypertension, unspecified (CMS/HCC); Aneurysm of the ascending aorta, without rupture (CMS/HCC); Primary hypertension (CMS/HCC); 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 (CMS/HCC); 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); Elevated PSA, between 10 and less than 20 ng/ml Start: 04-01-2024 End: 04-01-2024 ambulatory LUCIANA NICOLAS Not Available Start: 03-31-2024 End: 03-31-2024 ambulatory [facility] Start: 03-17-2024 End: 03-17-2024 Refill Luciana Fidencio BULB TESTER Work Phone: [facility] Comment on above: Phantom pain Start: 01-29-2024 End: 01-29-2024 Refill Luciana Fidencio BULB TESTER Work Phone: [facility] Comment on above: Phantom pain (Primar y Dx) Start: 12-18-2023 End: 12-18-2023 Refill Filipe Polanco MD Work Phone: [facility] Comment on above: Phantom pain Start: 08-17-2023 End: 08-17-2023 Patient encounter procedure Joy ZHANG [facility] Start: 05-29-2023 Clinisync Result Encounter Luciana Nicolas BULB TESTER Work Phone: [facility] Unsolicited Start: 05-29-2023 Clinisync Result Encounter Luciana Nicolas BULB TESTER Work Phone: [facility] Unsolicited Start: 2023 Rickey Galo MD Work Phone: [facility] Start: 2023 Rickey Galo MD Work Phone: [facility] Start: 2023 End: 2023 Patient encounter procedure Luciana Nicolas BULB TESTER Work Phone: [facility] Comment on [...] encounter procedure Joy ZHANG [facility] Start: 06-21-2022 End: 06-22-[address] DANGELO JAEGER Facility:[facility] Start: 06-02-2022 End: 06-02-2022 Patient encounter procedure Joy ZHANG [facility] Start: 05-16-2022 End: 05-16-2022 Patient encounter procedure Joy ZHANG [facility] Start: 03-22-2022 End: 03-22-2022 ambulatory Wesley Diaz Facility:[facility] Start: 02-13-2022 End: 02-14-[address] JOY ZHANG . Facility:[facility] Start: 12-12-2021 End: 12-12-2021 Patient encounter procedure Joy ZHANG [facility] Start: 10-26-2021 ambulatory JAYLON NICOLAS Facil ity:[facility] Start: 10-13-2021 End: 10-14-2021 ambulatory JAYLON NICOLAS Facility:[facility] Start: 09-17-2021 End: 09-17-2021 ambulatory JAYLON NICOLAS Facility:[facility] Start: 09-16-2021 End: 09-16-2021 Patient encounter procedure Joy ZHANG [facility] Start: 07-26-2021 End: 07-27-2021 ambulatory MONSTER MEGAN Facility:[facility] Start: 07-15-2021 ambulatory [facility] Facility :[facility] Start: 03-08-2021 End: 03-09-2021 ambulatory JANA RODRIGUEZ Facility:[facility] Procedures Date Procedure Procedure Detail Performing Clinician Start: 05-28-2024 ALL CBC WITH AUTO DIFF Luciana Nicolas BULB TESTER Work Phone: Start: 05-29-2023 TBH UA (CLEAN/CATCH) MICROSCOPIC IF INDICATE Luciana Nicolas BULB TESTER Work Phone: Start: 05-16-2022 Transrectal needle b iopsy of prostate Joy ZHANG Start: 02-13-[address] DANGELO JAEGER Comment on above: Performed By: #### P SAD #### [facility] [address] [address] [address] Jose Saenz Start: 10-13-[address] DANGELO JAEGER Comment on above: Performed By: #### V ITB12, PSASC #### [facility] [address] [address] [address] Jose Saenz Start: 03-08-2021 Antibody screen JANA RODRIGUEZ Comment on above: Performed By: #### 6 [id number] #### [address] Start: 08-19-2015 Transurethral prostatectomy Joy MILKA Start: 07-28-2015 Urodynamic studies Patr ick MILKA Start: 11-30-2009 Transurethral prostatectomy Joy ZHANG Start: 09-07-2009 Transurethral prostatectomy Joy ZHANG Amputation of lower limb Юлия ZHANG Colonoscopy Joy ZHANG Hernia repair Joy ZHANG Unlisted procedure femur/knee Joy ZHANG Plan of Treatment Date Care Activity Detail Author Start: 06-01-2025 End: 06-01-2025 Patient encounter procedure 06/01/2025 11:00 AM EST Office Visit [facility] [address] [place] [phone] Luciana Nicolas, BETSY [address] [place] [phone] [facility] Start: 05-28-2025 Medicare Annual Well ness (AWV) Medicare Annual Wellness (AWV) [facility] Start: 02-25-2025 End: 02-25-2025 Patient encounter procedure 02/25/2025 1:00 PM EST Office Visit [facility] [address] [place] [phone] Luciana Nicolas NP [address] [place] [phone] [facility] Start: 12-15-2024 Influenza vaccination Influenza Vacc ine (#1) [facility] Start: 11-25-2024 End: 11-25-2025 CBC W Auto Differential panel - Blood CBC and differential Lab Routine Iron deficiency anemia, unspecified iron deficiency anemia type Expected: 11/25/2024 (Approximate), Expires: 11/25/2025 [facility] Work Phone: Comment on above: Expected: 11/25/2024 (Approximate), Expires: 11/25/2025 Start: 11-25-2024 End: 11-25-2025 Ferritin [Mass/volume] in Serum or Plasma Ferritin Lab Routine Iron deficiency anemia, unspecified iron deficiency anemia type Expected: 11/25/2024 (Approximate), Expires: 11/25/2025 [facility] Comment on above: Expected: 11/25/2024 (Approximate), Expires: 11/25/2025 Start: 11-25-2024 End: 08-12-2026 Iron + transferrin + TIBC Iron + transferrin + TIBC Lab Routine Iron deficiency anemia, unspecified iron deficiency anemia type Expected: 11/25/2024 (Approximate), Expires: 11/25/2025 [facility] Comment on above: Expected: 11/25/2024 (Approximate), Expires: 11/25/2025 Start: 11-25-2024 End: 11-25-2024 Patient encounter procedure 11/25/2024 1:00 PM EDT Office Visit [facility] [address] [place] [address] Luciana Nicolas, BULB TESTER [address] [place] [phone] [facility] Start: 08-26-2024 End: 08-26-2024 Patient encounter procedure 08/26/2024 1:20 PM EDT Office Visit [facility] [address] [place] [phone] Luciana Nicolas, BULB TESTER [address] [place] [phone] [facility] Start: 05-28-2024 End: 05-28-2025 25-hydroxyvitamin D3 [Mass/volume] in Serum or Plasma Vitamin D 25 hydroxy Lab Routine Vitamin D deficiency Expected: 05/28/2024 (Approximate), Expires: 05/28/2025 [facility] Comment on above: Expected: 05/28/2024 (Approximate), Expires: 05/28/2025 Start: 05-28-2024 End: 05-28-2025 CBC W Auto Differential panel - Blood CBC and differential Lab Routine 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 (CMS/HCC) 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 Vitamin B12 deficiency Expected: 05/28/2024 (Approximate), Expires: 05/28/2025 [facility] Work Phone: Comment on above: Expected: 05/28/2024 (Approximate), Expires: 05/28/2025 Start: 05-28-2024 End: 05-28-2025 Cobalamin (Vitamin B12) [Mass/volume] in Serum or Plasma Vitamin B12 Lab Routine Vitamin B12 deficiency Expected: 05/28/2024 (Approximate), Expires: 05/28/2025 [facility] Comment on above: Expected: 05/28/2024 (Approximate), Expires: 05/28/2025 Start: 05-28-2024 End: 05-28-2025 Comprehensive metabolic 2000 panel - Serum or Plasma Comprehensive metabolic panel Lab Routine Vitamin D deficiency Primary hypertension (CMS/HCC) Expected: 05/28/2024 (Approximate), Expires: 05/28/2025 [facility] Comment on above: Expected: 05/28/2024 (Approximate), Expires: 05/28/2025 Start: 05-28-2024 End: 05-28-2025 Microalbumin/Creatinine panel in random Urine Microalbumin / creatinine, urine ratio Lab Routine Primary hypertension (CMS/HCC) Expected: 05/28/2024 (Approximate), Expires: 05/28/2025 [facility] Comment on above: Expected: 05/28/2024 (Approximate), Expires: 05/28/2025 Start: 05-28-2024 End: 05-28-2025 Prostate specific Ag [Mass/volume] in Serum or Plasma PSA Lab Routine Benign prostatic hyperplasia with lower urinary tract symptoms, symptom details unspecified Elevated PSA, between 10 and less than 20 ng/ml Expected: 05/28/2024 (Approximate), Expires: 05/28/2025 [facility] Comment on above: Expected: 05/28/2024 (Approximate), Expires: 05/28/2025 Start: 05-28-2024 End: 05-28-2025 Urinalysis complete panel - Urine Urinalysis with reflex microscopic (clean catch) Lab Routine Primary hypertension (CMS/HCC) Expected: 05/28/2024 (Approximate), Expires: 05/28/2025 [facility] Comment on above: Expected: 05/28/2024 (Approximate), Expires: 05/28/2025 Start: 05-28-2024 End: 05-28-2024 Patient encounter procedure [facility] Comment on above: 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) (Primary Dx); Pulmonary hypertension, unspecified (CMS/HCC); Crohn's disease of small intestine without complications (CMS/HCC); Phantom limb syndrome with pain (CMS/HCC); Crohn's disease of large intestine without complications (CMS/HCC); 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 (CMS/HCC); Hx of senior living use of blood thinners; Encounter for subsequent annual wellness visit (AWV) in Medicare patient; Benign prostatic hyperplasia with lower urinary tract symptoms, symptom details unspecified; Elevated PSA, between 10 and less than 20 ng/ml; Vitamin B12 deficiency; Vitamin D deficiency; Primary hypertension (CMS/HCC) Start: 2024 Medicare Annual Well ness (AWV) Medicare Annual Wellness (AWV) [facility] Start: 04-01-2024 End: 04-01-2024 Patient encounter procedure 04/01/2024 1:20 PM EST Office Visit [facility] [address] [place] [address] Luciana Nicolas NP [address] [place] [phone] Phantom pain (Primary Dx); Pulmonary hypertension, unspecified (CMS/HCC); Aneurysm of the ascending aorta, without rupture (CMS/HCC); Primary hypertension (CMS/HCC); 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 (CMS/HCC); 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) [facility] Comment on above: Phantom pain (Primar y Dx); Pulmonary hypertension, unspecified (CMS/HCC); Aneurysm of the ascending aorta, without rupture (CMS/HCC); Primary hypertension (CMS/HCC); 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 (CMS/HCC); 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) Start: 02-21-2024 End: 02-21-2024 Patient encounter procedure 02/21/2024 1:00 PM EST Office Visit [facility] [address] [place] [address] Luciana Nicolas NP [address] [place] [phone] [facility] Start: 02-18-2024 End: 02-18-2024 Patient encounter procedure 02/18/2024 1:20 PM EST Office Visit [facility] [address] [place] [address] Luciana Nicolas, [employer] [address] [place] [phone] [facility] Start: 12-16-2023 Influenza vaccination Influenza Vacc ine (#1) [facility] Start: 08-20-2023 End: 08-20-2023 Patient encounter procedure 08/20/2023 1:20 PM EDT Office Visit [facility] [address] [place] [address] Luciana Nicolas, [employer] TE[employer] [address] [place] [phone] [facility] Start: 2023 End: 2024 25-hydroxyvitamin [...] B12 deficiency Expected: 2023 (Approximate), Expires: 2024 [facility] Comment on above: Expected: 2023 (Approximate), Expires: 2024 Start: 2023 End: 2024 Comprehensive metabolic 2000 panel - Serum or Plasma Comprehensive metabolic panel Lab Routine Iron deficiency anemia, unspecified iron deficiency anemia type Primary hypertension (CMS/HCC) Benign prostatic hyperplasia with lower urinary tract symptoms, symptom details unspecified Vitamin D deficiency Expected: 2023 (Approximate), Expires: 2024 [facility] Comment on above: Expected: 2023 (Approximate), Expires: 2024 Start: 2023 End: 2024 Iron and Iron binding capacity panel - Serum or Plasma Iron level Lab Routine Iron deficiency anemia, unspecified iron deficiency anemia type Expected: 2023 (Approximate), Expires: 2024 [facility] Comment on above: Expected: 2023 (Approximate), Expires: 2024 Start: 2023 End: 2024 Lipid 1996 panel - Serum or Plasma Lipid panel Lab Routine Primary hypertension (CMS/HCC) Expected: 2023 (Approximate), Expires: 2024 [facility] Comment on above: Expected: 2023 (Approximate), Expires: 2024 Start: 2023 End: 2024 Microalbumin/Creatinine panel in random Urine Microalbumin / creatinine, urine ratio Lab Routine Primary hypertension (CMS/HCC) Expected: 2023 (Approximate), Expires: 2024 [facility] Comment on above: Expected: 2023 (Approximate), Expires: 2024 Start: 2023 End: 2024 Prostate specific Ag [Mass/volume] in Serum or Plasma PSA Lab Routine Benign prostatic hyperplasia with lower urinary tract symptoms, symptom details unspecified Expected: 2023 (Approximate), Expires: 2024 [facility] Comment on above: Expected: 2023 (Approximate), Expires: 2024 Start: 2023 End: 2024 Urinalysis complete panel - Urine Urinalysis with reflex microscopic (clean catch) Lab Routine Primary hypertension ([facility]/HCC) Expected: 2023 (Approximate), Expires: 2024 [facility] Comment on above: Expected: 2023 (Approximate), Expires: 2024 Start: 2023 End: 2023 Patient encounter procedure 2023 10:00 AM EST Office Visit [facility] [address] [place] [address] Shaikh Galo MD [address] [place] [address] Arrived [facility] Comment on above: Arrived Start: 12-15-2022 Influenza vaccination Influenza Vacc ine (#1) [facility] Start: 01-26-2021 Pneumococcal Vaccine : 65+ Years (2 - PCV) Pneumococcal Vaccine: 65+ Years (2 - PCV) [facility] Start: 1935 Medicare Annual Well ness (AWV) Medicare Annual Wellness (AWV) [facility] Immunizations Immunization Date Immunization Notes Care Provider [facility] 02-02-2024 influenza virus vacc ine, unspecified formulation Joy ZHANG [facility] 02-02-2024 influenza, high dose seasonal, preservative-free Luciana Nicolas [employer] Work Phone: [facility] 02-02-2024 SARS-COV-2 (COVID-19 ) vaccine, mRNA, spike protein, LNP, PF, megha-sucrose, 30 mcg/0.3 mL Luciana Nicolas [employer] Work Phone: [facility] 01-16-2023 influenza virus vacc ine, unspecified formulation Joy ZHANG [facility] 01-16-2023 Influenza, High-dose Seasonal, Quadrivalent, Preservative Free Luciana Nicolas [employer] Work Phone: [facility] 01-16-2023 Influenza, Seasonal, Quadrivalent, Adjuvanted Filipe Polanco MD Work Phone: [facility] 01-16-2023 SARS-COV-2 (COVID-19 ) vaccine, mRNA, spike protein, LNP, PF, megha-sucrose, 30 mcg/0.3 mL Filipe Polanco MD Work Phone: [facility] 01-09-2022 influenza virus vacc ine, unspecified formulation Joy ZHANG [facility] 01-09-2022 Influenza, High-dose Seasonal, Quadrivalent, Preservative Free Filipe Polanco MD Work Phone: [facility] 01-09-2022 SARS-CoV-2 (COVID-19 ) [id number] Joy ZHANG [facility] 03-04-2021 SARS-CoV-2 (COVID-19 ) mRNA BNT-162b2 vax Joy ZHANG [facility] 02-23-2021 influenza virus vacc ine, unspecified formulation Joy ZHANG [facility] 02-23-2021 Influenza, injectabl e, Madin Shy Canine Kidney, preservative free, quadrivalent Shaikh Clover OROZCO Work Phone: [facility] 06-22-2020 SARS-CoV-2 (COVID-19 ) mRNA-1273 vaccine Joy ZHANG [facility] 05-24-2020 SARS-CoV-2 (COVID-19 ) mRNA-1273 vaccine Joy ZHANG [facility] 01-27-2020 influenza virus vacc ine, unspecified formulation Joy ZHANG [facility] 01-27-2020 influenza, injectabl e, quadrivalent, preservative free Shaikh Clover OROZCO Work Phone: [facility] 01-27-2020 pneumococcal polysaccharide vaccine, 23 valent Joy ZHANG [facility] Payers Date Payer Category Payer Private Health Insurance [id number] 2001 Medicare [id number] 1959 Medicare [id number] 1959 Private Health Insurance CLI [id number] 1959 Self-pay 1936 Unknown [id number] 2.16.8 [id number] 1936 Unknown [id number] 2.16.84 [id number] 1936 Unknown [id number] 2.16.84 [id number] 1936 Unknown [id number] 2.16.84 [id number] 1936 Unknown [id number] 2.16.84 [id number] 1936 Unknown [id number] 2.16.84 [id number] 1936 Unknown [id number] 2.16.84 [id number] 1936 Unknown [id number] 2.16.84 [id number] 1936 Unknown [id number] 2.16.8 [id number] 1936 Unknown [id number] 2.16.8 [id number] 1936 Unknown [id number] 2.16.8 [id number] 1936 Unknown [id number] 2.16.8 [id number] 1936 Unknown [id number] 2.16.8 [id number] 1936 Unknown [id number] 2.16.84 [id number] 1936 Unknown [id number] 2.16.84 [id number] 1936 Unknown [id number] 2.16.84 [id number] Unknown [id number] 2.16.8 [id number] Social History Date Type Detail Facility Start: 03-28-2021 End: 04-04-2023 Tobacco smoking status Ex-smoker (finding) [facility] Start: 04-04-2023 End: 2023 Sex Assigned At Male [facility] Tobacco smoking status Never [facility] Tobacco quit 30 years ag o Tobacco Use:. Stopped age 35 Years. [facility] Tobacco smoking status [facility] Start: 04-16-1957 End: 04-16-1982 History of tobacco use Current smoker [facility] Start: 04-16-1957 End: 04-16-1982 History of tobacco use Cigarette Smoker [facility] Start: 04-04-2023 End: 2023 Cigarettes smoked current (pack per day) - Reported 1.5 [facility] Start: 1935 Sex Assigned At Not on file [facility] Start: 2023 End: 11-26-2024 Alcohol intake Ex-drinker (finding) [facility] Within the last year , have you been afraid of your partner or ex-partner? No [facility] Do you belong to any clubs or organizations such as zoroastrianism groups, unions, fraternal or athletic groups, or [...] Comment coffee 2 cups daily [facility] Start: 12-06-2018 Sex Male (finding) [facility] Functional Status Date Assessment Result Facility 08-17-2023 Functional Status N/A [facility] 12-01-2022 Functional Status N/A [facility] 06-02-2022 Functional Status N/A [facility] 12-12-2021 Functional Status N/A [facility] Clinical Notes 12-12-2021 to 11-26-2024 Luciana Nicolas NP - 11/26/2024 4:04 AM Janine Nicolas NP - 11/26/2024 4:02 AM RORY HURTADO - 11/25/2024 1:00 PM EDKatie Nicolas NP - 11/25/2024 1:00 PM EDTPatient Instructions Note Date & Type Note Facility 11-26-2024 History of Present illness Narrative Associated Problem(s): Gastroenteritis Reviewed [facility] ER notes Appears to be feeling better No s/s dehydration Associated Problem(s): 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 (HCC) Continue with anti coagulation Follows with cardiology It is possible that his sxs he describes are related to afib Will reach out to cardiology Pt has not had any loose stools or diarrhea since being in the ER Pt had diarrhea for a week prior to the ER visit Pt often has dizziness in the mornings when waking up and at times after sitting up from bed or chair he becomes dizzy and nausea Images from the original note were not included. Robin Pza is a 89 y.o. male presents with chief complaint of ER Follow-up HPI: Here for 3 month recheck, he also presents with his daughter today, since seen last in this office, his has . Overall his is doing fairly well after her passing. He does get meals on wheels for food, sleep can be on and off as he is trying to adjust to life without her. was also in the ER at [facility] a few days ago for gastroenteritis evaluation See [facility] ER notes, as well as labs: [...] anything for rate control. 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 done again 03/16/2020 RHIZOTOMY Right 05/25/2020 right theurapeutic rhizotomy sympathetic level of L4 and L5 - Dr Kim/[facility] family history is not on file. OBJECTIVE: Visit Vitals BP 144/76 (BP Location: Left arm, Patient Position: Sitting, BP Cuff Size: Adult long) Pulse 78 Temp 97.5 F (Temporal) Resp 18 Wt 163 lb 9.6 oz SpO2 97% BMI 22.19 kg/m Smoking Status Former BSA 1.94 m Physical Exam Constitutional: Appearance: Normal appearance. 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 You may urinate every 1 2 hours even though you drink a normal [...] bladder health. You may be told to: Keep a bladder diary. Keep track of: ?What you eat and drink. ?How often you urinate. ?How much you urinate. Follow a bladder training program. This may include: ?Learning to delay going to the bathroom. ?Double urinating, also called voiding. This helps if you are not completely emptying your bladder. ?Scheduled voiding. Do Kegel exercises. Kegel exercises strengthen the muscles that help control urination, which may help the condition. Eating and drinking Follow instructions from your health care provider about eating or drinking restrictions. You may be told to: Avoid caffeine. Drink fewer fluids, especially alcohol. Avoid drinking in the evening. Avoid foods or drinks that may irritate the bladder. These include coffee, tea, soda, artificial sweeteners, citrus, tomato-based foods, and chocolate. Eat foods that help prevent or treat constipation. Constipation can make urinary frequency worse. You may need to take these actions to prevent or treat constipation: ?Drink enough fluid to keep your urine pale yellow. ?Take pajt-rcf-kdbxhzb or prescription medicines. ?Eat foods that are high in fiber, such as beans, whole grains, and fresh fruits and vegetables. ?Limit foods that are high in fat and processed sugars, such as fried or sweet foods. General instructions Take pelg-evn-oloeplj and prescription medicines only as told by your health care provider. Keep all follow-up visits. This is important. Contact a health care provider if: You start urinating more often. You feel pain or irritation when you urinate. You notice blood in your urine. Your urine looks cloudy. You develop a fever. You begin vomiting. Get help right away if: You are unable to urinate. Summary Urinary frequency means urinating more often than usual. With urinary frequency, you may urinate every 1 2 hours even though you drink a normal amount of fluid and do not have a bladder infection or other bladder condition. Your health care provider may recommend that you keep a bladder diary, follow a bladder training program, or make dietary changes. If told by your health care provider, do Kegel exercises to strengthen the muscles that help control urination. Take wkem-xnw-csvcgyb and prescription medicines only as told by your health care provider. Contact a health care provider if your symptoms do not improve or get worse. This information is not intended to replace advice given to you by your health care provider. Make sure you discuss any questions you have with your health care provider. Document Revised: 11/05/2020 Document Reviewed: 11/05/2020 [employer] Patient Education 2023 [place]. Follow Up Care 08/18/2024 10:42:01 With:MILKA OROZCO, Joy Gutierrez, URL Address: [address] [place] [address] [place] [address] When: Unknown Comments:6 mos [facility] 11-24-2024 Note Patient Education Urology Urinary Frequency, Adult [...] keep your urine pale yellow. ? Take fdhj-blp-fbrepbi or prescription medicines. ? Eat foods that are high in fiber, such as beans, whole grains, and fresh fruits and vegetables. ? Limit foods that are high in fat and processed sugars, such as fried or sweet foods. General instructions ??? Take rwld-hmm-ilnyjxh and prescription medicines only as told by [...] muscles that help control urination. ??? Take ewry-ocj-zdisggc and prescription medicines only as told by your health care provider. ??? Contact a health care provider if your symptoms do not improve or get worse. This information is not intended to replace advice given to you by your health care provider. Make sure you discuss any questions you have with your health care provider. Document Revised: 11/05/2020 Document Reviewed: 11/05/2020 [employer] Patient Education ? 2023 [place]. [facility] 11-04-2024 Telephone encounter Note Patient is asking for a refill of hydrocodone acetaminophen. JN [facility] 11-04-2024 Miscellaneous Notes Patient is asking for a refill of hydrocodone acetaminophen. JN documented in this encounter [facility] 08-26-2024 History of Present illness Narrative Pt [...] 300 mg, Oral, 2 times daily HYDROcodone-acetaminophen (Matteson) 5-325 MG tablet 1 tablet, Oral, Every [...] Above knee amputation of left lower extremity ([facility]) At low risk for fall Benign prostatic hyperplasia Benign prostatic hypertrophy BPH with urinary obstruction Crohn's colitis ([facility]) Elevated PSA, between 10 and less than 20 ng/ml Hard of hearing Hematuria Hypertension (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,L5 [facility]/Dr Kim for phantom limb pain, [...] with pain (CMS/HCC) Continue with gabapentin and Matteson OARRS reviewed Med Agreement signed: 05/28/24 Hypertension [...] with pain (CMS/HCC) Continue with gabapentin and Matteson OARRS reviewed Med Agreement signed: 05/28/24 documented in this encounter [facility] 08-26-2024 History of Present illness Narrative Pt [...] 300 mg, Oral, 2 times daily HYDROcodone-acetaminophen (Matteson) 5-325 MG tablet 1 tablet, Oral, Every [...] hypertrophy BPH with urinary obstruction Crohn's colitis (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,L5 [facility]/Dr Kim for phantom limb pain, autonomic pain [...] with pain (CMS/HCC) Continue with gabapentin and Matteson OARRS reviewed Med Agreement signed: 05/28/24 Hypertension [...] with pain (CMS/HCC) Continue with gabapentin and Matteson OARRS reviewed Med Agreement signed: 05/28/24 documented in this encounter [facility] 08-26-2024 Telephone encounter Note Call dr taylor's office to get most UTD office notes please DINESH [facility] 08-26-[address] taylor's office to get most UTD office notes please DINESH documented in this encounter [facility] 08-18-2024 Note Patient Education Urology Urinary Frequency, [...] keep your urine pale yellow. ? Take hpxs-idd-bbbiyup or prescription medicines. ? Eat foods that are high in fiber, such as beans, whole grains, and fresh fruits and vegetables. ? Limit foods that are high in fat and processed sugars, such as fried or sweet foods. General instructions ??? Take nyah-kir-yniixsn and prescription medicines only as told by [...] muscles that help control urination. ??? Take ejqf-qyl-nzsbpqb and prescription medicines only as told by your health care provider. ??? Contact a health care provider if your symptoms do not improve or get worse. This information is not intended to replace advice given to you by your health care provider. Make sure you discuss any questions you have with your health care provider. Document Revised: 11/05/2020 Document Reviewed: 11/05/2020 [employer] Patient Education ? 2023 [place]. [facility] 05-28-2024 History of Present illness Narrative [...] in the last year:none Specialist: Urology, Cardiology, Jayashreemkjuliaer for prosthetic device HCPOA/Living Will: unsure usually takes care of this Concerns: takes care of in hospice d/t parkinson's dz, SUBJECTIVE: MEDICATIONS: Current Outpatient Medications Medication Instructions apixaban (Eliquis) 2.5 MG tablet 1 tablet, 2 times daily gabapentin (NEURONTIN) 300 mg, Oral, 2 times daily HYDROcodone-acetaminophen (Matteson) 5-325 MG tablet 1 tablet, Oral, Every [...] Above knee amputation of left lower extremity ([facility]) At low risk for fall Benign prostatic hyperplasia Benign prostatic hypertrophy BPH with urinary obstruction Crohn's colitis ([facility]) Elevated PSA, between 10 and less than 20 ng/ml Hard of hearing Hematuria Hypertension ([facility]) Iron deficiency anemia 08/01/2017 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 (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) Crohn's disease of large intestine without complications ([facility]) No current sxs Pulmonary hypertension, unspecified ([facility]) Per ECHO findings 03/09 Hx of senior living use of blood thinners Check cbc yearly and prn Monitor for s/s GI bleeding Relevant Orders CBC and differential Other Visit Diagnoses Phantom pain Relevant Medications gabapentin (Neurontin) 300 MG capsule HYDROcodone-acetaminophen (Matteson) 5-325 MG tablet Associated Problem(s): Vitamin D [...] with pain (CMS/HCC) Continue with gabapentin and Matteson OARRS reviewed Med Agreement signed: 05/28/24 documented in this encounter [facility] 05-28-2024 Instructions Luciana Nicolas NP - 05/28/2024 11:00 AM EST Get labs completed documented in this encounter [facility] 04-01-2024 History of Present illness Narrative Associated [...] received at pharmacy He does follow with [facility] cardiology for a fib, and had recent visit with them as well recently, reviewed labs SUBJECTIVE: MEDICATIONS: Current Outpatient Medications Medication Instructions apixaban (Eliquis) 2.5 MG tablet 1 tablet, 2 times daily cyanocobalamin (Vitamin B-12) 1000 MCG tablet 1 tablet, Daily RT gabapentin (NEURONTIN) 300 mg, Oral, 2 times daily HYDROcodone-acetaminophen (Matteson) 5-325 MG tablet 1 tablet, Oral, Every [...] Above knee amputation of left lower extremity ([facility]) At low risk for fall Benign prostatic hyperplasia Benign prostatic hypertrophy BPH with urinary obstruction Crohn's colitis ([facility]) Elevated PSA, between 10 and less than 20 ng/ml Hard of hearing Hematuria Hypertension (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 done again 03/16/2020 RHIZOTOMY Right 05/25/2020 right theurapeutic rhizotomy sympathetic level of L4 and L5 - Dr Kim/[facility] family history is not on [...] 08/31/23 OARRS reviewed documented in this encounter [facility] 04-01-2024 Instructions Luciana Nicolas NP - 04/01/2024 1:20 PM EST Follow up elizabeth early 06/10, this will be a medicare wellness appoitment Check at [facility] for pain pill documented in this encounter [facility] 03-31-2024 Note [place] Cardiology - [facility] Subjective Robin Paz is a 88 [...] basal cell carcinoma of skin Hx of senior living use of blood thinners Nocturia Phantom pain [...] He presented in May 2018 to the [facility] with A. fib and RVR. He was [...] Other (See Comments) (more content not included)... [facility] 03-17-2024 Telephone encounter Note Pt does need a fu appt. With getting pain meds, he does need to be seen every 3 months, he has cancelled a couple appts in February. I am sure with his 's medical it has been difficult, but please schedule him in [place] [facility] 03-17-2024 Miscellaneous Notes Pt does need a fu appt. With getting pain meds, he does need to be seen every 3 months, he has cancelled a couple appts in February. I am sure with his 's medical it has been difficult, but please schedule him in [place] documented in this encounter [facility] 08-17-2023 Hospital Discharge instructions Patient Education 08/17/2023 [...] urethra. Follow these instructions at home: Take [id number] and prescription medicines only as told by [...] provider. Document Revised: 10/19/2021 Document Reviewed: 10/19/2021 [employer] Patient Education 2022 [place]. 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 done again 03/16/2020 RHIZOTOMY Right 05/25/2020 right theurapeutic rhizotomy sympathetic level of L4 and L5 - Dr Kim/[facility] family history is not on file. OBJECTIVE: [...] documented in this encounter [facility] 12-01-2022 Hospital Discharge instructions Patient Education 12/01/2022 [...] urethra. Follow these instructions at home: Take [id number] and prescription medicines only as told by [...] provider. Document Revised: 10/19/2021 Document Reviewed: 10/19/2021 [employer] Patient Education 2022 [employer] Follow Up Care 06/02/2022 11:46:25 With:MILKA OROZCO, Joy Gutierrez, URL Address: [address] [place] [phone]- When: Unknown [facility] 06-02-2022 Hospital Discharge instructions Patient Education 06/02/2022 [...] one of these risk factors: ?Being of -Filipino descent. ?Having a family history of prostate [...] you: Are older than age 55. Are -Filipino. Have a father, brother, or uncle who [...] 01/11/2018 Document Revised: 03/15/2018 Document Reviewed: 01/11/2018 [employer] Patient Education 2020 [place]. Follow Up Care 05/01/2022 08:18:24 With:MILKA OROZCO, Joy Gutierrez, URL Address: [address] [place] [address] [place] [address]- When: Unknown [facility] [place] 05-16-2022 Hospital Discharge instructions Patient Education 05/16/2022 [...] for your post-operative appointment in 1-2 weeks [phone] or [phone] Follow Up Care 05/01/2022 08:13:35 With:Joy ZHANG Address: [facility] [address] [place] [address]- Business (1) When: Unknown Comments:Keep scheduled appointment [facility] 12-12-2021 Hospital Discharge instructions Patient Education 12/12/2021 [...] one of these risk factors: ?Being of -Filipino descent. ?Having a family history of prostate [...] you: Are older than age 55. Are -Filipino. Have a father, brother, or uncle who [...] 01/11/2018 Document Revised: 03/15/2018 Document Reviewed: 01/11/2018 [employer] Patient Education 2020 [place]. Follow Up Care 12/10/2020 12:14:36 With:Joy ZHANG MD, URL Address: [address] [place] [address]- When:Within 2 Month(s) [facility] Evaluation + Plan note Future Appointments Appointment Date:12/12/2021 11:15:00 AM Scheduled Provider:Joy ZHANG MD Location:[facility] Appointment Type:URO Office Visit Diagnostic Tests PendingUroVysion Fish and Urine Cyto ([facility]) 09/16/21 [facility] Evaluation + Plan note Future Appointments Appointment Date:02/13/2022 11:15:00 AM Scheduled Provider:Joy ZHANG MD Location:[facility] Appointment Type:URO Office Visit Diagnostic Tests PendingPSA Total 12/29/21 [facility] Evaluation + Plan note Future Appointments Appointment Date:06/02/2022 11:00:00 AM Scheduled Provider:Joy ZHANG MD Location:[facility] Appointment Type:URO Office Visit Diagnostic Tests PendingProstate Histology ([facility]) 05/16/22 [facility] Evaluation + Plan note Future Appointments Appointment Date:12/01/2022 08:45:00 AM Scheduled Provider:Joy ZHANG MD Location:[facility] Appointment Type:URO Office Visit Diagnostic Tests PendingPSA Total 10/14/22 [facility] Evaluation + Plan note Future Appointments Appointment Date:06/11/2023 09:45:00 AM Scheduled Provider:Joy ZHANG MD Location:[facility] Appointment Type:URO Office Visit [facility] Evaluation + Plan note Future Appointments Appointment Date:08/18/2024 10:30:00 AM Scheduled Provider:Joy ZHANG MD Location:[facility] Appointment Type:URO Office Visit [facility] Evaluation + Plan note Future Appointments Appointment Date:11/24/2024 12:45:00 PM Scheduled Provider:Joy ZHANG MD Location:[facility] Appointment Type:URO Office Visit Diagnostic Tests PendingUrine Cytology ([facility]) 08/18/24 [facility] Evaluation + Plan note Future Appointments Appointment Date:05/29/2025 11:00:00 AM Scheduled Provider:Joy ZHANG MD Location:[facility] Appointment Type:URO Office Visit [facility] Evaluation note Diagnosis Encounter for subsequent annual wellness visit (AWV) in Medicare patient- Primary Phantom pain (CMS/HCC) Phantom limb (syndrome) Iron deficiency anemia, unspecified iron deficiency anemia type Primary hypertension ([facility]) Unspecified essential hypertension 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 ([facility]) Atrial fibrillation Benign prostatic hyperplasia with lower urinary tract symptoms, symptom details unspecified Vitamin D deficiency Vitamin B12 deficiency Other B-complex deficiencies documented in this encounter [facility]* Diagnosis Phantom pain- Primary [...] Phantom limb (syndrome) documented in this encounter [facility]* Diagnosis Phantom pain- Primary [...] Phantom limb (syndrome) documented in this encounter [facility]* Diagnosis Phantom pain- Primary [...] than 20 ng/ml documented in this encounter [facility]* Diagnosis Phantom pain Phantom limb (syndrome) documented in this encounter [facility]* Diagnosis Phantom pain- Primary [...] Phantom limb (syndrome) documented in this encounter [facility]* Diagnosis Phantom pain- Primary [...] knee upon examination (HCC) (CMS/HCC) 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 Encounter for long-term (current) use of anticoagulants Benign prostatic hyperplasia with lower urinary tract symptoms, symptom details unspecified Elevated PSA, between 10 and less than 20 ng/ml Vitamin B12 deficiency Other B-complex deficiencies Vitamin D deficiency Primary hypertension (CMS/HCC) Unspecified essential hypertension Phantom pain Phantom limb (syndrome) documented in this encounter [facility]* Diagnosis Phantom pain- Primary [...] knee upon examination (HCC) (CMS/HCC) 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 Encounter for long-term [...] deficiency anemia type documented in this encounter [facility]* Diagnosis Phantom pain- Primary [...] Phantom limb (syndrome) documented in this encounter [facility]* Diagnosis Phantom pain- Primary [...] knee upon examination (HCC) (CMS/HCC) 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 Encounter for long-term (current) use of anticoagulants Benign prostatic hyperplasia with lower urinary tract symptoms, symptom details unspecified Elevated PSA, between 10 and less than 20 ng/ml Vitamin B12 deficiency Other B-complex deficiencies Vitamin D deficiency Primary hypertension (CMS/HCC) Unspecified essential hypertension Phantom pain Phantom limb (syndrome) Phantom pain Phantom limb (syndrome) documented in this encounter [facility]* Diagnosis Phantom pain- Primary [...] than 20 ng/ml documented in this encounter [facility]* Diagnosis Phantom pain- Primary [...] than 20 ng/ml documented in this encounter [facility]* Diagnosis Phantom pain- Primary [...] Phantom limb (syndrome) documented in this encounter [facility]* Diagnosis Phantom pain- Primary [...] deficiency anemia type documented in this encounter [facility]* Diagnosis Phantom pain- Primary [...] Phantom limb (syndrome) documented in this encounter [facility]* Diagnosis Phantom pain- Primary [...] above knee upon examination (HCC) 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 Encounter for long-term [...] between 10 and less than 20 ng/ml 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 (HCC)- Primary Atrial fibrillation Primary hypertension Unspecified essential hypertension 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) Phantom limb (syndrome) Iron deficiency anemia, unspecified iron deficiency anemia type Gastroenteritis Other and unspecified noninfectious gastroenteritis and colitis documented [facility] Narrative No data available for this section [facility] Hospital Discharge instructions No data available for this section [facility] progress note No data available for this section [facility] Summary Purpose Family History No Family History Records FoundNo Family History Records FoundNo Family History Records Found No data available for this section No Family History Records Found No data available for this section No data available for this section No [...] and content) DATE CREATED AUTHOR 03/15/2021 [facility] DATE CREATED AUTHOR AUTHOR'S ORGANIZ ATION 04/07/2022 [facility] DATE CREATED AUTHOR AUTHOR'S ORGANIZ ATION 06/24/2022 [facility] DATE CREATED AUTHOR AUTHOR'S ORGANIZ ATION 04/02/2024 [facility] DATE CREATED AUTHOR AUTHOR'S ORGANIZ ATION 11/25/2024 [facility] DATE CREATED AUTHOR AUTHOR'S ORGANIZ ATION 11/27/2024 [facility] dical Specialists EPIC Care Team (unrecognized sect ion and content) Freight Adjuster Relationship Specialty Start Date End Date Filipe Polanco MD PCP - General Family Medicine 10/06/22 Freight Adjuster Relationship Specialty Start Date End Date Filipe Polanco MD [address] [place] [address] PCP - General Family Medicine 05/23/23 Luciana Nicolas NP [address] [place] [address] Nurse Practitioner Family Medicine 05/23/23 Freight Adjuster Relationship Specialty Start Date End Date Filipe Polanco MD [address] [place] [address] PCP - General Family Medicine 05/23/23 Luciana Nicolas NP [address] [place] [address] Nurse Practitioner Family Medicine 05/23/23 Freight Adjuster Relationship Specialty Start Date End Date Filipe Polanco MD [address] [place] [address] PCP - General Family Medicine 05/23/23 Luciana Nicolas NP [address] [place] [address] Nurse Practitioner Family Medicine 05/23/23 Freight Adjuster Relationship Specialty Start Date End Date Filipe Polanco MD [address] [place] [address] PCP - General Family Medicine 05/23/23 Luciana Nicolas NP [address] [place] [address] Nurse Practitioner Family Medicine 05/23/23 Freight Adjuster Relationship Specialty Start Date End Date Filipe Polanco MD [address] [place] [address] PCP - General Family Medicine 05/23/23 Luciana Nicolas NP [address] [place] [address] Nurse Practitioner Family Medicine 05/23/23 Freight Adjuster Relationship Specialty Start Date End Date Filipe Polanco MD [address] [place] [address] PCP - General Family Medicine 05/23/23 Luciana Nicolas NP [address] [place] [address] Nurse Practitioner Family Medicine 05/23/23 Freight Adjuster Relationship Specialty Start Date End Date Filipe Polanco MD [address] [place] [address] PCP - General Family Medicine 05/23/23 Luciana Nicolas NP [address] [place] [address] PCP - ACO Reach 05/23/24 Luciana Nicolas NP [address] [place] [address] Nurse Practitioner Family Medicine 05/23/23 Freight Adjuster Relationship Specialty Start Date End Date Filipe Polanco MD [address] [place] [address] PCP - General Family Medicine 05/23/23 Luciana Nicolas NP [address] [place] [address] PCP - ACO Reach 05/23/24 Luciana Nicolas NP [address] [place] [address] Nurse Practitioner Family Medicine 05/23/23 Freight Adjuster Relationship Specialty Start Date End Date Filipe Polanco MD [address] [place] [address] PCP - General Family Medicine 05/23/23 Luciana Nicolas NP [address] [place] [address] PCP - ACO Reach 05/23/24 Luciana Nicolas NP [address] [place] [address] Nurse Practitioner Family Medicine 05/23/23 Freight Adjuster Relationship Specialty Start Date End Date Filipe Polanco MD [address] [place] [address] PCP - General Family Medicine 05/23/23 Luciana Nicolas NP [address] [place] [address] PCP - ACO Reach 05/23/24 Luciana Nicolas NP [address] [place] [address] Nurse Practitioner Family Medicine 05/23/23 Freight Adjuster Relationship Specialty Start Date End Date Filipe Polanco MD [address] [place] [address] PCP - General Family Medicine 05/23/23 Lucinaa Nicolas NP [address] [place] [address] PCP - ACO Reach 05/23/24 Luciana Nicolas NP [address] [place] [address] Nurse Practitioner Family Medicine 05/23/23 Freight Adjuster Relationship Specialty Start Date End Date Filipe Polanco MD [address] [place] [address] PCP - General Family Medicine 05/23/23 Luciana Nicolas NP [address] [place] [address] PCP - ACO Reach 05/23/24 Luciana Nicolas NP [address] [place] [address] Nurse Practitioner Family Medicine 05/23/23 Freight Adjuster Relationship Specialty Start Date End Date Filipe Polanco MD [address] [place] [address] PCP - General Family Medicine 05/23/23 Luciana Nicolas NP [address] [place] [address] PCP - ACO Reach 05/23/24 Luciana Nicolas NP [address] [place] [address] Nurse Practitioner Family Medicine 05/23/23 Freight Adjuster Relationship Specialty Start Date End Date Filipe Polanco MD [address] [place] [address] PCP - General Family Medicine 05/23/23 Luciana Nicolas NP [address] [place] [address] PCP - ACO Reach 05/23/24 Luciana Nicolas NP [address] [place] [address] Nurse Practitioner Family Medicine 05/23/23 Freight Adjuster Relationship Specialty Start Date End Date Filipe Polanco MD [address] [place] [phone] PCP - General Family Medicine 05/23/23 Luciana Nicolas NP [address] [place] [address] PCP - ACO Reach 05/23/24 Luciana Nicolas NP [address] [place] [address] Nurse Practitioner Family Medicine 05/23/23 Freight Adjuster Relationship Specialty Start Date End Date Filipe Polanco MD [address] [place] [address] PCP - General Family Medicine 05/23/23 Luciana Nicolas NP [address] [place] [address] PCP - ACO Reach 05/23/24 Luciana Nicolas NP [address] [place] [address] Nurse Practitioner [facility] Medicine 05/23/23 Freight Adjuster Relationship Specialty Start Date End Date Filipe Polanco MD [address] [place] [address] PCP - General Family Medicine 05/23/23 Luciana Nicolas NP [address] [place] [address] PCP - ACO Reach 05/23/24 Luciana Nicolas NP [address] [place] [address] Nurse Practitioner [facility] Medicine 05/23/23 Reason for Visit (unrecogniz ed section and content) Reason Onset Date Comments Med Refill 03/17/2024 Reason Onset Date Comments Med Refill 12/18/2023 Reason Onset Date Comments Med Refill 06/25/2024 Reason Onset Date Comments Med Refill 08/11/2024 Reason Onset Date Comments Med Refill 09/22/2024 Reason Onset Date Comments Med Refill 11/04/2024 Reason Comments ER Follow-up FOR RECORDS PERTAINING TO PATIENTS WHO ARE [...] BE BASED ON THE PRIMARY CLINICAL RECORDS. [facility]. provides no warranty or guarantee of the accuracy or completeness of information in this document.
[2024-11-28 11:49] LABS: Hematocrit 33.8 % (42.0-54.0); Hemoglobin 11.0 g/dL (14.0-18.0); Immature Granulocytes Abs Auto 0.02 10^3/uL (0.00-0.03); Immature Granulocytes Pct Auto 0.3 % (0.0-0.5); Lymphocytes Absolute Auto 1.2 10^3/uL (1.2-3.8); Mean Corpuscular HGB Conc 32.5 g/dL (29.9-35.2); Mean Corpuscular Hemoglobin 29.1 pg (25.9-34.0); Mean Corpuscular Volume 89.4 fL (80.0-94.0); Platelet Count 322 10^3/uL (150-450); Red Blood Count 3.78 10^6/uL (4.70-6.10); White Blood Count 6.4 10^3/uL (4.0-11.0)
[2024-11-28 12:37] LABS: Iron 52.0 ug/dL (65.0-175.0); Percent Iron Saturation 15.6 %; Total Iron Binding Capacity 334.0 ug/dL (250.0-450.0)
[2024-11-28 12:52] LABS: Ferritin 38.0 ng/mL (26.0-388.0)
[2024-11-29 06:08] LABS: Transferrin 285 mg/dL (149-313)
== END 2024-11-28 11:11 | disposition home or self-care (01) ==
LOC: LAB 11:13
PROVIDERS: PCP Nurse Practitioner; Visit Provider Nurse Practitioner
DX: D50.9 Iron deficiency anemia, unspecified (principal)
CPT/HCPCS: 36415; 82728; 83540; 83550; 84466; 85025

== ENCOUNTER 2025-02-23 09:37 | Outpatient (OUT) | payer MEDICARE, SELFPAY ==
--- OUTSIDE RECORDS SUMMARY | 2025-02-23 09:39 | XMS_ITS | Clinical Summary ---
Author Organization [facility] Address [id number] [address] [place] [address] Care Team Providers Care Camera Storage Clerk Name Role Phone Vivek Younger MD Primary Care Provider [phone] Allergies Active AllergyReactionsCriticalityNoted DateCommentsDicloxacillin SodiumOther (See Comments)02/11/2016 Turn stools gritty Mxadcqvqpuw61/09/2017 Other reaction(s): Other (See Comments) Turn stools gritty Medications MedicationSigDispense QuantityRefillsLast FilledStart DateEnd DateStatus aspirin 81 mg FEW TIMES A WEEK Active HYDROcodone-acetaminophen (NORCO) 5-325 mg per tablet [place] 5-325 MG Oral Tablet TAKE 1 TABLET Daily PRN Refills: 0 ActiveActive tamsulosin (FLOMAX) 0.4 mg capsule,extended release 24hr Tamsulosin HCl - 0.4 MG Oral Capsule TAKE 1 CAPSULE Daily Refills: 0 ActiveActive CHOLECALCIFEROL, VITAMIN D3, (VITAMIN D3 ORAL) Take 2,000 Units by mouth.Active cyanocobalamin 1000 MCG tablet Take 1,000 mcg by mouth daily.Active ferrous sulfate 325 (65 FE) mg tablet Take 65 mg by mouth daily with breakfast.Active cyanocobalamin/folic acid (VITAMIN L19-NMECF ACID) 1,000-400 mcg lozenge vitamin B12 1,000 mcg-folic acid [address] by sublingual route.Active pregabalin (LYRICA) 50 mg capsule Indications:Phantom limb pain (CMS-HCC)Take 1 pill at bedtime x 3 days then take 1 pill BID 60 capsule Active Active Problems ProblemNoted DateDiagnosed DatePhantom limb pain02/06/2019 Overview (02/06/2019): Added automatically from request for surgery [id number] Atrial uoukgndagpya72/29/2019Small bowel wktvgvapf81/28/2019Iron deficiency ofhsph8208/01/2017Crohn's disease of small intestine without complication 02/23/2017Vitamin D ucwsrsucug48/09/2017Rheumatoid ibjprxzpk46/08/2017Hearing loss05/24/2016Fitting and adjustment of prosthetic gtnome5305/24/2016Irregular heart ajpgyi0702/11/2016Special screening for malignant neoplasms, colon02/11/2016 Nuclear senile wmxixswr63/24/2013 Resolved Problems ProblemNoted DateDiagnosed DateResolved DateCrohn's srwjgit18 Irritable bowel hvqmqrgo07Crohn's disease of colon02/11/2016 02/23/2017 Family History Medical HistoryRelationNameCommentsCancerBrotherunknown typeAlzheimer's disease MotherNo Known ProblemsSisterRelationNameStatusCommentsBrotherDeceasedDaughter 1 AliveDaughter 2AliveDaughter 3AliveFatherDeceasedMaternal GrandfatherDeceased Maternal GrandmotherDeceasedMotherDeceasedPaternal GrandfatherDeceasedPaternal GrandmotherDeceasedSisterAliveSon 1AliveSon 2Alive Social History Tobacco UseTypesPacks/DayYears UsedDateSmoking Tobacco: FormerCigarettes1.530 04/16/1945 - 04/16/1975Smokeless Tobacco: Never Tobacco Cessation:Counseling Given: No Alcohol UseStandard Drinks/WeekCommentsYes0 (1 standard drink = 0.6 oz pure alcohol)AUDIT-CAnswerDate RecordedFrequency of Alcohol ConsumptionMonthly or less12/23/2018Average Number of Drinks1 or Frequency of Binge DrinkingNot on file12/23/2018ChildcareAnswerDate RecordedChildcareUnknown 09/25/2018EmploymentAnswerDate MjscpqfrPvokctxpsdPrhtdon00/12/2019Purpose - Life AnswerDate RecordedPurpose and direction in ztaiNubnrpe05/20/2021Sex and Gender InformationValueDate RecordedSex Assigned at BirthNot on fileLegal SexMale 11/19/2014 11:56 AM EDTGender IdentityNot on fileSexual OrientationNot on file Last Filed Vital Signs Vital SignReadingTime TakenCommentsBlood Rzsvofxz058/78005/07/2020 1:14 PM EST Kxrhd250805/07/2020 1:14 PM VQXDsotmuwgvho02.6 ??C (97.9 ??F)02/21/2019 12:54 PM ESTRespiratory Odor410106/10/2019 10:24 AM ESTOxygen Ewxgaspfkc27%02/21/2019 1:15 PM ESTInhaled Oxygen Concentration--Nbpixl70.1 kg (167 lb 12.8 oz)05/07/2020 1:14 PM QSSDuquaz533.8 cm (5' 10 )05/07/2020 1:14 PM ESTBody Mass Index24.08 05/07/2020 1:14 PM EST Plan of Treatment Health MaintenanceDue DateLast DoneCommentsDepression Dgxslaunu34/07/1949Tobacco Ioztnaywo02/07/1949DTaP,Tdap and Td Vaccines (1 - Tdap)1955Zoster (Shingles) Vaccine (1 of 2)1986Fall Risk Lslandxua69/07/2002RSV ( or age 60+ yrs) (1 - 1-dose 75+ series)2011Influenza Vmcijuv2112/15/2024 Medical Devices Not on file Insurance Care Teams Team MemberRelationshipSpecialtyStart DateEnd Date Vivek Younger MD [address] [place] [address] PCP - [facility]05/31/18
--- OUTSIDE RECORDS SUMMARY | 2025-02-23 09:40 | XMS_ITS | Clinical Summary ---
Author Organization [facility] Address [address] [place] [address] Care Team Providers Care Acoustic Intelligence Specialist Name Role Phone Luciana Nicolas MD Primary Care Provider Allergies Active AllergyReactionsCriticalityNoted BrjxYltjhfjqBjwaviuwugoRotoj40/24/2013 Turn stools gritty Other reaction(s): Other (See Comments) Turn stools gritty Turn stools gritty Medications MedicationSigDispense QuantityRefillsLast FilledStart DateEnd DateStatus ferrous sulfate 325 (65 Fe) MG tablet Take 65 mg by mouth 3 (three) times a week.Active gabapentin (Neurontin) 100 mg capsule 1 capsule in the morning.Active tamsulosin (Flomax) 0.4 mg 24 hr capsule tamsulosin 0.4 mg capsuleActive cyanocobalamin (Vitamin B-12) 1,000 mcg tablet Take 1,000 mcg by mouth in the morning.Active Eliquis 2.5 mg tablet Indications: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 (CMS/HCC)TAKE 1 TABLET BY MOUTH IN THE MORNING AND AT BEDTIME (LOWER DOSE SO DO NOT CUT IN HALF) 180 tablet 5Active losartan (Cozaar) 25 mg tablet Indications:Primary hypertensionTAKE 1 TABLET BY MOUTH EVERY OTHER DAY 45 tablet 3095Active Active Problems ProblemNoted DateDiagnosed DateCrohn's usikuus2703/31/2024Gross hematuria 03/31/2024Hx of retirement use of blood /16/7948Aylspcmp69/16/2024Weak urine kuwlbp9403/31/2024neurysm of ascending aorta without fypsjdb9302/27/2024 Overview (03/31/2024): 03/09 ECHO 4.5cm, unchanged Pulmonary byrqaegfrmsw22/13/2024 Overview (03/31/2024): Per ECHO findings 02/2024 at [facility] 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 upon akyidjhtnri87/06/2024Benign prostatic bjmdeqzawrs09/07/2024 Overview (03/31/2024): Benign prostatic hypertrophy Elevated PSA, between 10 and less than 20 ng/ml2023Vitamin B12 deficiency 2023asal cell carcinoma of back04/04/2023History of basal cell carcinoma of skin3Phantom pain03/26/2023Hypertensive rzvcrucz34/20/2021hantom limb pain02/06/2019 Overview (06/05/2022): Added automatically from request for surgery [id number] Atrial eoyctynkrvmq18/29/2019Small bowel wkiqrmnfh22/28/2019Iron deficiency gcjdyj7008/01/2017Crohn's disease of small intestine without complication 02/23/2017Vitamin D eouquglect36/09/2017Hearing loss05/24/2016Rheumatoid jrciylrdi35/08/2017Fitting and adjustment of prosthetic vljmsq0105/24/2016 Irregular heart lubhsi6502/11/2016Special screening for malignant neoplasms, colon 02/11/2016Nuclear senile xceptrdk15/24/2013 Encounters DateTypeDepartmentCare CpddPzffyvollfj76/16/2025[facility] [place] [address] [place] [address] Kun Gu MD Primary hypertensionfrom Last 3 Months Family History Medical HistoryRelationNameCommentsCoronary artery diseasePaternal Grandmother RelationNameStatusCommentsPaternal Grandmother Social History Tobacco UseTypesPacks/DayYears UsedDateSmoking Tobacco: FormerCigarettes Smokeless Tobacco: Never Tobacco Cessation:Counseling Given: Not Answered Alcohol UseStandard Drinks/WeekCommentsYes0 (1 standard drink = 0.6 oz pure alcohol)occasionalUT Safety & EnvironmentAnswerDate RecordedFear of Current or Ex-PartnerNot on file06/07/2023Emotionally AbusedNot on file06/07/2023hysically AbusedNot on file06/07/2023Sexually AbusedNot on file06/07/2023hysically or Sexually AbusedNot on file06/07/2023Sex and Gender InformationValueDate Recorded Sex Assigned at BirthNot on fileLegal TkdHcbv5410/13/2021 12:12 AM EDTGender IdentityNot on fileSexual OrientationNot on file Last Filed Vital Signs Vital SignReadingTime TakenCommentsBlood Syblsmmc554/6403/31/2024 1:00 PM EST Vdsaq675903/31/2024 1:00 PM ESTTemperature--Respiratory Rate--Oxygen Tiyxxpmrhq64% 03/31/2024 1:00 PM ESTInhaled Oxygen Concentration--Pscfok14.1 kg (159 lb) 03/31/2024 1:00 PM WWWZibxgn944.9 cm (6')03/31/2024 1:00 PM ESTBody Mass Index 21.56106/01/2023 1:00 PM EST Plan of Treatment Health MaintenanceDue DateLast DoneCommentsMedicare Annual Wellness (AWV) 1936Depression Ictwguvio03/07/1949Adult Weejupo8805/23/1958Zoster Vaccines (1 of 2)1986Fall Risk Gtoctyiex31/07/2002Pneumococcal Vaccine: 50+ Years (2 of 2 - PCV)COVID-19 Vaccine ( season) , 01/16/2023, 01/09/2022, Additional history existsInfluenza Vaccine (#1)/, 01/16/2023, 01/09/2022, Additional history existsHIB VaccinesAged OutNo longer eligible based on patient's age to complete this topicHPV VaccinesAged OutNo longer eligible based on patient's age to complete this topicIPV VaccinesAged OutNo longer eligible based on patient's age to complete this topicMeningococcal B VaccineAged OutNo longer eligible based on patient's age to complete this topicMeningococcal VaccineAged OutNo longer eligible based on patient's age to complete this topicRotavirus VaccinesAged Out No longer eligible based on patient's age to complete this topic Insurance Care Teams Team MemberRelationshipSpecialtyStart DateEnd Date Luciana Nicolas MD [address] [place] [address] [facility]06/05/22
--- OUTSIDE RECORDS SUMMARY | 2025-02-23 09:40 | XMS_ITS | Clinical Summary ---
Author Organization [facility] Address [address] [place] [address] Care Team Providers Care Chicken Boner Name Role Phone Filipe Polanco MD Primary Care Provider [phone] Luciana Nicolas NP Unavailable [phone] Luciana Nicolas TRIMMER OPERATOR Unavailable [phone] Allergies Active AllergyReactionsCriticalityNoted DateCommentsPenicillinsOtherLow 10/07/2012 Turn stools gritty Medications MedicationSigDispense QuantityRefillsLast FilledStart DateEnd DateStatus apixaban (Eliquis) 2.5 MG tablet Take 1 tablet by mouth in the morning and 1 tablet in the evening.10/30/2022 Active losartan (Cozaar) 25 MG tablet Take 25 mg by mouth every other day 1 tablet by mouth every other day03/16/2023 Active tamsulosin (Flomax) 0.4 MG 24 hr capsule Take 1 capsule by mouth in the morning.Active gabapentin (Neurontin) 300 MG capsule Indications:Phantom painTake 1 capsule (300 mg) by mouth in the morning and 1 capsule (300 mg) before bedtime. 180 capsule 5Active Myrbetriq 50 MG 24 hr tablet Take 50 mg by mouth Daily5Active ferrous sulfate 325 (65 Fe) MG tablet Indications:Iron deficiency anemia, unspecified iron deficiency anemia typeTake 1 tablet (325 mg) by mouth in the morning and 1 tablet (325 mg) in the evening. Take with meals. 180 tablet 5Active Active Problems ProblemNoted DateDiagnosed EhmwLtaykbfdrlovdvq68/13/2025 Assessment & Plan (11/26/2024 4:04 AM EDT): Reviewed [facility] ER notes Appears to be feeling better No s/s dehydration Crohn's irbftgx7403/31/2024Gross slcgyihrz50/16/2024Hx of fdc use of blood kwlduhmt89/16/2024 Assessment & Plan (05/28/2024 6:52 AM EST): Check cbc yearly and prn Monitor for s/s GI bleeding Jnpjfvwm09/16/2024Weak urine xrmdlf5103/31/2024ulmonary hypertension, unspecified 02/27/2024 Overview (02/27/2024): Per ECHO findings 02/2024 at [facility] Assessment & Plan (05/28/2024 6:51 AM EST): Per ECHO findings 03/09 Assessment & Plan (04/01/2024 7:20 AM EST): Per ECHO findings Aneurysm of the ascending aorta, without oltoaea2902/27/2024 Overview (02/27/2024): 03/09 ECHO 4.5cm, unchanged Assessment & Plan (04/01/2024 7:19 AM EST): Continues to follow with cardiology for monitoring Crohn's disease of large intestine without otxziblvjaorv46/04/2024 Assessment & Plan (05/28/2024 6:51 AM EST): No current sxs 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 upon kerpphzcjug20/06/2024 Assessment & Plan (11/25/2024 6:46 AM EDT): OARRS reviewed Pain agreement is [...] signed Fu in 3 months Colon cancer uhrubzgdy66/15/2024 Assessment & Plan (05/31/2023 2:41 PM EST): Pt requests screening colonoscopy, I obtained his scope from 09/19/2012 had sigmoid diverticulosis, mod Paroxysmal atrial xwihvzcauook56/07/2024 Assessment & Plan (11/26/2024 4:02 AM EDT): [...] GI bleeding Cont w cardiology as well Eojincluwmcs03/07/2024 Assessment & Plan (11/25/2024 6:46 AM EDT): [...] 1:40 PM EDT): No med changes Contacted [facility] cardiology and they refilled his losartan 50mg QOD Assessment & Plan (08/20/2023 1:44 PM EDT): No med changes Assessment & Plan (2023 11:39 AM EST): Takes losartan every other day, no side effects Is under good control Check labs Elevated PSA, between 10 and less than 20 ng/ml2023 Overview (08/26/2024): Per Urology, recommends no longer checking PSA levels 2024 Assessment & Plan (08/26/2024 6:44 AM EDT): Established with dr patel Assessment & Plan (05/28/2024 6:53 AM EST): Established with dr patel Assessment & Plan (04/01/2024 2:01 PM EST): Sees Dr patel, next appt April 2024 Benign prostatic ilwahxdyrmy97/07/2024 Overview (2023): Benign prostatic hypertrophy Assessment & Plan (05/28/2024 6:53 AM EST): Continue with dr patel Assessment & Plan (2023 11:39 AM EST): Continue with dr patel Vitamin B12 kevuuwmvxa68/07/2024 Assessment & Plan (05/28/2024 6:54 AM EST): Takes supplement daily Encounter for subsequent annual wellness visit (AWV) in Medicare patient 2023 [...] a full code Basal cell carcinoma of back04/04/2023History of basal cell carcinoma of skin 04/04/2023hantom limb syndrome with pain02/06/2019 Overview (2023): Added automatically from request for surgery [id number] Added automatically from request for surgery [id number] Assessment & Plan (11/25/2024 6:46 AM EDT): Continue with gabapentin and [place] OARRS reviewed Med Agreement signed: 05/28/24 Assessment & Plan (08/26/2024 6:39 AM EDT): Continue with gabapentin and [place] OARRS reviewed Med Agreement signed: 05/28/24 Assessment & Plan (05/28/2024 11:46 AM EST): Continue with gabapentin and [place] OARRS reviewed Med Agreement signed: 05/28/24 Assessment [...] on file: 08/31/23 OARRS reviewed Iron deficiency dydytm7808/01/2017Crohn's disease of small intestine without lohghaokuoxkm53/10/2017 Assessment & Plan (05/28/2024 6:51 AM EST): No current sxs Assessment & Plan (08/20/2023 1:44 PM EDT): Had eval for colonoscopy, deffered Vitamin D uyjbbxauqc33/09/2017 Assessment & Plan (05/28/2024 6:54 AM EST): Check lab Fitting and adjustment of prosthetic abcepn4605/24/2016Hearing loss05/24/2016 Resolved Problems ProblemNoted DateDiagnosed DateResolved DateAbove knee amputation of left lower dcxjhpujm44 Assessment & Plan (08/20/2023 1:45 PM EDT): OARRS reviewed Pain aggreement Hypertensive zymeipft11Irregular heart zdemxr4202/11/2016 11/21/2023 Encounters DateTypeDepartmentCare VdioPtestnvyxjj53/19/2025Refill [facility] [address] [place] [address] Luciana Nicolas NP Iron deficiency anemia, unspecified iron deficiency anemia type12/01/2024 Abstract [facility] [address] [place] [address] Luciana Nicolas NP 5[facility] [address] [place] [address] Luciana Nicolas NP 5Clinisync Result Encounter [facility] External [facility] Unsolicited Luciana Nicolas NP 11/25/2024 1:00 PM EDTOffice Visit [facility] [address] [place] [address] Luciana Nicolas NP 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 (HCC) (Primary Dx); Primary hypertension ; 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); Phantom limb syndrome with pain (HCC); Iron deficiency anemia, unspecified iron deficiency anemia type; Uepehfrrgrjxcwe40/12/2025Patient Outreach [facility] [address] [place] [address] GriselLucy, RAMON 11/24/2024bstract [facility] [address] [place] [address] Luciana Nicolas NP from Last 3 Months Immunizations ImmunizationAdministration DatesNext DueInfluenza, High Dose Seasonal, Preservative Free02/02/2024Influenza, High-dose Seasonal, Quadrivalent, Preservative Free01/16/2023,01/09/2022Influenza, Seasonal, Quadrivalent, Rmzmliskzk87/03/2023Influenza, injectable, MDCK, preservative free, quadrivalent 02/23/2021Influenza, injectable, quadrivalent, preservative free01/27/2020 Moderna SARS-CoV-2 Nntkmcnpdri93/09/2021,1Pfizer Purple Cap SARS-CoV-2 Vlcucccphst23/19/2021Pneumococcal Polysaccharide [id number]-VLA-6 (COVID-19) vaccine, mRNA, spike protein, LNP, PF, megha-sucrose, 30 mcg/0.3 mL 02/02/2024,01/16/20237015VVOC-DWI-2 (COVID-19) vaccine, mRNA, spike protein, LNP, bivalent, preservative free, 30 mcg/0.3 mLdose, megha-sucrose formulation 01/09/2022 Family History Medical HistoryRelationNameCommentsMelanomaNeg Social History Tobacco UseTypesPacks/DayYears UsedDateSmoking Tobacco: FormerCigarettes1.525 1957 - 1982 Tobacco Cessation:Counseling Given: Not Answered Alcohol UseStandard Drinks/WeekCommentsNot Currently0 (1 standard drink = 0.6 oz pure alcohol)coffee 2 cups dailyHumiliation, Afraid, Rape, and Kick questionnaireAnswerDate RecordedWithin the last year, have you been afraid of your partner or ex-partner?No2023Within the last year, have you been humiliated or emotionally abused in other ways by your partner or ex-partner?No 2023Within the last year, have you been kicked, hit, slapped, or otherwise physically hurt by your partner or ex-partner?No2023Within the last year, have you been raped or forced to have any kind of sexual activity by your part ner or ex-partner?No2023Social Connection and Isolation PanelAnswerDate RecordedIn a typical week, how many times do you talk on the phone with family, friends, or neighbors?Three times a week2023How often do you get together with friends or relatives?Three times a week2023How often do you attend rastafarian or jehovah's witness services?More than 4 times per year2023o you belong to any clubs or organizations such as rastafarian groups, unions, fraternal or athletic groups, or school groups?Yes2023How often do you attend meetings of the clubs or organizations you belong to?More than 4 times per year2023 Are you , , , , never , or living with a partner?Emdpcme0105/23/2023UDIT-CAnswerDate RecordedQ1: How often do you have a drink containing alcohol?Monthly or less2023Q2: How many drinks containing alcohol do you have on a typical day when you are drinking?Patient does not drink2023Q3: How often do you have six or more drinks on one occasion? Never2023Overall Financial Resource Strain (CARDIA)AnswerDate RecordedHow hard is it for you to pay for the very basics like food, housing, medical care, and heating?Not hard at all2023HQ-2AnswerDate RecordedPatient Health Questionnaire-2 Frleo129[facility] [place] [facility] Occupational Health - Occupational Stress QuestionnaireAnswerDate RecordedDo you feel stress - tense, restless, nervous, or anxious, or unable to sleep at night because yourmind is troubled all the time - these days?To some ckdyro0505/23/2023Exercise Vital Sign AnswerDate RecordedOn average, how many days per week do you engage in moderate to strenuous exercise (like a brisk walk)?4 days2023On average, how many minutes do you engage in exercise at this level?10 min2023Hunger Vital SignAnswerDate RecordedWithin the past 12 months, you worried that your food would run out before you got the money to buymore.Never true2023Within the past 12 months, the food you bought just didn't last and you didn't have money to get more.Never true2023RAPARE - TransportationAnswerDate RecordedIn the past 12 months, has lack of transportation kept you from medical appointments or from getting medications?No2023In the past 12 months, has lack of transportation kept you from meetings, work, or from getting things needed for daily living?No2023Housing Stability Vital SignAnswerDate RecordedIn the last 12 months, was there a time when you were not able to pay the mortgage or rent on time?No2023In the last 12 months, how many places have you lived?In the last 12 months, was there a time when you did not have a steady place to sleep or slept in [facility] (including now)?No 2023Sex and Gender InformationValueDate RecordedSex Assigned at BirthNot on fileLegal RefWyuh3906/28/2022 7:05 PM EDTGender IdentityNot on fileSexual OrientationNot on file Last Filed Vital Signs Vital SignReadingTime TakenCommentsBlood Uzsxcuja465/7608 1:05 PM EDT Flgbn5914 1:05 PM KFMLsoflyxvbfe14.4 ??C (97.5 ??F)11/25/2024 1:05 PM EDTRespiratory Dkzg621811/25/2024 1:05 PM EDTOxygen Fjsmlbauan07%11/25/2024 1:05 PM EDTInhaled Oxygen Concentration--Ekltvn37.2 kg (163 lb 9.6 oz)11/25/2024 1:05 PM BZDXjthqr829.9 cm (6')04/01/2024 1:26 PM ESTBody Mass Index22.19106/02/2023 1:26 PM EST Plan of Treatment Health MaintenanceDue DateLast DoneCommentsCOVID-19 Vaccine ( season) , 01/16/2023, 03/04/2021, Additional history existsInfluenza Vaccine (#1)/, 01/16/2023, 01/16/2023, Additional history existsMedicare Annual Wellness (AWV)602/03/2025, 4Pneumococcal Vaccine: 65+ OcvzzFciwmrbqp46/03/2023, 01/27/2020Overridden with the intention of not completing the topic Procedures Procedure NamePriorityDate/TimeAssociated DiagnosisCommentsTRANSFERRINRoutine 11/28/2024 11:23 AM EDT [facility] CAEFFBCOGrsnudi82/15/2025 11:23 AM EDT [facility] XWUWFtiqqcw65/15/2025 11:23 AM EDT ALL CBC WITH AUTO TPMFIvchzsj44/15/2025 11:23 AM EDT from Last 3 Months Results * TRANSFERRIN (11/28/2024 11:23 AM EDT)ComponentValueRef RangeTest Method Analysis TimePerformed AtPathologist LpzztikfcFTZHMCRGTNT321327 - 313 mg/dLTBH Comment: Performed at: ??CB - [facility] [address] ??[id number] Ice Cream Truck Driver: Grant Garza PhD, Phone: ??[phone] Specimen (Source)Anatomical Location / LateralityCollection Method / Volume Collection TimeReceived Time11/28/2024 11:23 AM EDT11/28/2024 11:25 AM EDT Narrative [facility] - 11/29/2024 6:08 AM EDT Authorizing ProviderResult TypeResult StatusLisa [facility]ich[facility] NPLAB BLOOD ORDERABLES Final ResultPerforming OrganizationAddressCity/State/ZIP CodePhone Number [facility] * (ABNORMAL) [facility] TIBC (11/28/2024 11:23 AM EDT)ComponentValueRef RangeTest MethodAnalysis TimePerformed AtPathologist SignatureTBH IRON52.0(L) 65.0 - 175.0 ug/dLTBHTBH TOTAL IRON BINDING YIQBMIJH358.0250.0 - 450.0 ug/dL TBHTBH PERCENT IRON DAKZJLYQNT06.6%TBHSpecimen (Source)Anatomical Location / LateralityCollection Method / VolumeCollection TimeReceived Time11/28/2024 11:23 AM EDT11/28/2024 11:25 AM EDT Narrative [facility] - 11/28/2024 12:51 PM EDT Authorizing ProviderResult TypeResult StatusLiSnoqualmie [facility] NPCLINISYNCFinal ResultPerforming OrganizationAddressCity/State/ZIP CodePhone Number [facility] * [facility]ERRITIN (11/28/2024 11:23 AM EDT)ComponentValueRef RangeTest Method Analysis TimePerformed AtPathologist FwtgvvpqzJBJQHAFJ87.026.0 - 388.0 ng/mL TBHSpecimen (Source)Anatomical Location / LateralityCollection Method / Volume Collection TimeReceived Time11/28/2024 11:23 AM EDT11/28/2024 11:25 AM EDT Narrative [facility] - 11/28/2024 12:56 PM EDT Authorizing ProviderResult TypeResult StatusLiKindred Hospital South PhiladelphiaLINISYNCFinal ResultPerforming OrganizationAddressCity/State/ZIP CodePhone Number [facility] * (ABNORMAL) ALL CBC WITH AUTO DIFF (11/28/2024 11:23 AM EDT)ComponentValueRef RangeTest MethodAnalysis TimePerformed AtPathologist SignatureTBH WBC6.44.0 - 11.0 10 3/uLTBHTBH RBC3.78(L)4.70 - 6.10 10 6/uLTBHTBH HGB11.0(L)14.0 - 18.0 g/dLTBHTBH HCT33.8(L)42.0 - 54.0 %TBHTBH MCV89.480.0 - 94.0 fLTBHTBH MCH29.1 25.9 - 34.0 pgTBHTBH MCHC32.529.9 - 35.2 g/dLTBHTBH RDW13.711.0 - 15.0 %TBHTBH SPN506080 - 450 10 3/uLTBHTBH MPV10.39.5 - 13.5 fLTBHNEUTROPHILS PERCENT AUTO 70.043.0 - 75.0 %TBHLYMPHOCYTES PERCENT AUTO19.1(L)20.5 - 60.0 %TBHMONOCYTES PERCENT AUTO6.81.7 - 12.0 %TBHTBH EO %3.00.9 - 7.0 %TBHBASOPHILS PERCENT AUTO 0.80.2 - 2.0 %TBHIMMATURE GRANULOCYTES PCT AUTO0.30.0 - 0.5 %TBHNEUTROPHILS ABSOLUTE AUTO4.51.4 - 6.5 10 3/uLTBHLYMPHOCYTES ABSOLUTE AUTO1.21.2 - 3.8 10 3/uLTBHMONOCYTES ABSOLUTE AUTO0.40.3 - 0.8 10 3/uLTBHTBH EO #0.20.0 - 0.7 10 3/uLTBHBASOPHILS ABSOLUTE AUTO0.10.0 - 0.1 10 3/uLTBHIMMATURE GRANULOCYTES ABS AUTO0.020.00 - 0.03 10 3/uLTBHSpecimen (Source)Anatomical Location / LateralityCollection Method / VolumeCollection TimeReceived Time11/28/2024 11:23 AM EDT11/28/2024 11:25 AM EDT Narrative [facility] - 11/28/2024 12:42 PM EDT Authorizing ProviderResult TypeResult StatusLisa Aichholz NPCLINISYNCFinal ResultPerforming OrganizationAddressCity/State/ZIP CodePhone Number [facility] from Last 3 Months Insurance Care Teams Team MemberRelationshipSpecialtyStart DateEnd Date Filipe Polanco MD PCP - GeneralFamily Medicine05/23/23 Luciana Nicolas NP [facility] [place] [address] PCP - [facility]05/23/24 Luciana Nicolas NP Nurse PractitionerFamily Medicine05/23/23
--- OUTSIDE RECORDS SUMMARY | 2025-02-23 09:40 | XMS_ITS | Clinical Summary ---
Author Organization [facility] Address [address], [address] [place] [address] Care Team Providers Care Production Control Supervisor Name Role Phone TammyWesley rosenberg Ronny [place] Primary Care Provider [phone] Allergies Active AllergyReactionsCriticalityNoted DateCommentsPenicillinsOther (See Comments)10/07/2012 Turn stools gritty Medications MedicationSigDispense QuantityRefillsLast FilledStart DateEnd DateStatus HYDROcodone-acetaminophen (VICODIN) 5-500 MG per tablet Take 1 tablet by mouth every 6 hours as needed.Active tamsulosin (FLOMAX) 0.4 MG capsule Take 0.4 mg by mouth daily.Active aspirin 81 MG tablet Take 81 mg by mouth daily.Active predniSONE (DELTASONE) 5 MG tablet Take 5 mg by mouth daily.Active finasteride (PROSCAR) 5 MG tablet Take 5 mg by mouth daily.Active Active Problems ProblemNoted DateDiagnosed DateSenile nuclear ocbiecags09/24/2013 Social History Tobacco UseTypesPacks/DayYears UsedDateSmoking Tobacco: FormerCigarettesQuit: 10/07/1977Sex and Gender InformationValueDate RecordedSex Assigned at BirthNot on fileLegal KblKsyj8809/26/2012 9:23 AM EDTGender IdentityNot on fileSexual OrientationNot on file Last Filed Vital Signs Vital SignReadingTime TakenCommentsBlood Sffxrwcq627/7910/07/2012 2:00 PM EDT Ciyqc246210/07/2012 2:00 PM FXKPrsbdlvdwln90.5 ??C (97.7 ??F)10/07/2012 12:23 PM EDTRespiratory Gnnx455910/07/2012 2:00 PM EDTOxygen Oieoqkjnxi48%10/07/2012 2:00 PM EDTInhaled Oxygen Concentration--Cpjyos78.7 kg (178 lb)10/07/2012 12:23 PM HKCHiwiqj417.4 cm (6' 1 )10/07/2012 12:23 PM EDTBody Mass Index23.48010/07/2012 12:23 PM EDT Plan of Treatment Not on file Advance Directives * Full Code (Latest Code Status on File) Date ActivatedDate InactivatedComments10/07/2012 3:24 PM10/07/2012 4:20 PM * Full Code Date ActivatedDate InactivatedComments10/07/2012 12:22 PM10/07/2012 3:24 PM Care Teams Team MemberRelationshipSpecialtyStart DateEnd Date Wesley Diaz DO [address] [place] [id number] PCP - General09/27/12
--- OUTSIDE RECORDS SUMMARY | 2025-02-23 09:40 | XMS_ITS | Encounter Summary ---
Author Organization [facility] Address [address] [place] [address] Care Team Providers Care Flux Core Welder Name Role Phone Filipe Polanco MD Primary Care Provider [phone] Luciana Nicolas NP Unavailable [phone] Luciana Nicolas NP Unavailable [phone] Encounter Details DateTypeDepartmentCare Team (Latest Contact Info)Myuqtcvhdwf35/13/2024Clinisync Result Encounter [facility] Unsolicited Provider, Generic External Data Social History Tobacco UseTypesPacks/DayYears UsedDateSmoking Tobacco: FormerCigarettes1.525 1957 - 1982Alcohol UseStandard Drinks/WeekCommentsNot Currently0 (1 standard drink = [...] times a week2023How often do you attend mandaeism or mosque services?More than 4 times per year2023o you belong to any clubs or organizations such as mandaeism groups, unions, fraternal or athletic groups, or school groups?Yes2023How often do you attend meetings of the clubs or organizations you belong to?More than 4 times per year2023 Are you , , , , never , or living with a partner?Kqgdmgc2405/23/2023UDIT-CAnswerDate RecordedQ1: How often do you have a [...] heating?Not hard at all2023HQ-2AnswerDate RecordedPatient Health Questionnaire-2 [id number] [facility] [place] of Occup[facility] - Occupational Stress QuestionnaireAnswerDate RecordedDo you feel stress - tense, restless, nervous, or anxious, or unable to sleep at night because yourmind is troubled all the time - these days?To some ddwbkx9405/23/2023Exercise Vital Sign AnswerDate RecordedOn average, how many [...] steady place to sleep or slept in [facility] (including now)?No 2023Sex and Gender InformationValueDate RecordedSex Assigned at BirthNot on fileLegal BbtCmrh0606/28/2022 7:05 PM EDTGender IdentityNot on fileSexual OrientationNot on filedocumented as of this encounter Functional Status documented as of this encounter Plan of Treatment Not on file documented as of this encounter Procedures Procedure NamePriorityDate/TimeAssociated DiagnosisCommentsCA ECHO DOPPLER UJFSMGCT83/13/2024 4:52 PM EST documented in this encounter Results * CA ECHO DOPPLER COMPLETE (02/27/2024 4:52 PM EST)Anatomical RegionLaterality ModalityOtherSpecimen (Source)Anatomical Location / LateralityCollection Method / VolumeCollection TimeReceived Time02/27/2024 4:52 PM EST Narrative 02/27/2024 4:53 PM EST [facility] ?[address] ? [place] [address] ? Cardiology Report ? Signed ? Patient: GUNNAR PAZ ?MR#: [id number] ?? : 1935 ?Acct:[id number] ?? Age/Sex: 88 / M ?ADM Date: 02/27/24 ?? Loc: CARD ? Attending Dr: DANGELO GU ? Ordering Physician: DANGELO GU ?? Date of Service: 02/27/24 ?? Procedure(s): CA echo doppler complete ?? Accession Number(s): [id number] ? cc: Luciana Nicolas NP; DANGELO GU ? Patient Name: ? GUNNAR PAZ ? MR#: [id number] ? : 1935 ? Exam Date: 02/27/2024 ?? Ordering Doctor: DR DANGELO GU M.D. ? ECHOCARDIOGRAM REPORT ? PROCEDURE: ? CA ECHO DOPPLER COMPLETE ? INDICATIONS: ? Aortic aneurysm ? COMPARISON: ? None. ? DESCRIPTION: ? COMPLETE ECHOCARDIOGRAM Real-time transthoracic ?? echocardiography with 2D, M-mode, spectral and color flow Doppler performed. ? QUALITY: ? Technical quality was good. ? LEFT VENTRICLE: ? Normal chamber size. Mild concentric left ventricular ?? hypertrophy. Global left ventricular systolic function is normal. ?? LV EF: ? Visual estimation of left ventricular ejection fraction is 60-65% ?? DIASTOLIC: ? Diastolic function is indeterminate. ?? ATRIAL SEPTUM: ? LEFT ATRIUM: ? Normal chamber size. ?? RIGHT ATRIUM: ? Normal chamber size. ?? RIGHT VENTRICLE: ? Normal chamber size. Normal right ventricular systolic ?? function. ? TRICUSPID VALVE: Normal mobility and thickness. No stenosis with mild ?? regurgitation. ??Doppler studies suggest mild pulmonary hypertension. RVSP 36 ?? mmHg ? MITRAL VALVE: ? Normal mobility and thickness. ?? No evidence of mitral valve ?? stenosis. ??There is no mitral annular calcification. Mild mitral ?? regurgitation. ? AORTIC VALVE: ? Normal trileaflet appearance. Mildly calcified aortic valve. ?? Normal leaflet mobility. ??No evidence of aortic valve stenosis. DVI 0.7. ?? Trivial aortic regurgitation. ? AORTIC ROOT: ? Moderately dilated, measuring 4.3 cm. 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 09/18/2022. ? PULMONIC VALVE: Normal thickness and mobility. No stenosis. No regurgitation. ? PERICARDIUM: ? No evidence of pericardial effusion. ? IVC: ? Collapses with inspirations. Normal size. ? PLEURA: ? CONCLUSION: ? 1. Mild concentric left ventricular hypertrophy with normal systolic function. ?? Estimated LVEF is 60 to 65%. ?? 2. Normal right ventricular size and systolic function. ?? 3. Mild mitral and tricuspid regurgitation. ?? 4. The aortic valve is mildly calcified with no stenosis and trivial ?? regurgitation. ?? 5. 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 ascending aorta measuring 4.5 cm, unchanged from prior exam of 09/18/2022. ?? 6. No pericardial effusion. ? Adult Echocardiography Procedure Report ?? Left Ventricle ?? LVEDD (3.7 - 5.6 cm): ? 4.20 cm ?? LVESD (2.2 - 4.0 cm): ? 3.00 cm ?? LVIVS thickness (0.6 - 1.2 cm): ? 1.16 cm ?? LVPW thickness (0.5 - 1.0 cm): ? 0.93 cm ?? e': ? 0.09 m/s ?? E - e': ? 7.84 ?? LVOT Max Gradient: ? 3.62 mm[Hg], 4.33 mm[Hg] ?? LVOT Area (cm2): ? 1.00 m/s ?? Peak Velocity (LVOT): ? 0.95 m/s, 1.04 m/s ?? Mean Velocity (LVOT): ? 0.76 m/s ?? LVOT Diameter ? 2.00 cm ?? Left Ventricular Ejection Fraction: ? 60-65 % ?? Left Atrium ?? LA Volume Index (2D A2C): ? 25.24 ml/m2 ?? Left Atrium Systolic Dimension: ? 3.04 cm ?? Mitral Valve ?? MV E to A Ratio: ? 0.86 ?? Mitral Valve A-Wave Peak Velocity: ? 0.81 m/s ?? Mitral Valve E-Wave Peak Velocity: ? 0.70 m/s ?? Right Ventricle ?? RV Internal Diastolic Dimension: ? 3.54 cm ?? Aorta ?? AO Root Diam: ? 4.29 cm ?? Ascending Ao Diam: ? 4.47 cm ?? Aortic Valve ?? AoV Area (Peak [place]): ? 2.06 cm2, 1.96 cm2 ?? AoV Area (VTI): ? 1.81 cm2, 1.74 cm2 ?? Peak Velocity(Antegrade Flow): ? 1.52 m/s ?? Peak Gradient(Antegrade Flow): ? 9.25 mm[Hg] ?? Mean Velocity(Antegrade Flow): ? 1.03 m/s ?? Mean Gradient(Antegrade Flow): ? 4.95 mm[Hg] ?? Velocity Time Integral: ? 35.45 cm ?? Tricuspid Valve ?? Peak Velocity (Regurgitant Flow): ? 2.24 m/s, 2.89 m/s, 2.50 m/s ?? Pulmonic Valve ?? Mean Gradient: ? 1.10 mm[Hg], 2.33 mm[Hg] ?? Mean Velocity: ? 0.48 m/s, 0.73 m/s ?? Peak Velocity: ? 0.86 m/s ?? Peak Gradient: ? 2.16 mm[Hg], 3.81 mm[Hg] ?? Right Atrium ?? Right Atrium Systolic Pressure: ? 30.37 ml, 30.37 ml ? Dictated by: Dangelo Gu M.D. on 02/27/2024 at 16:44 ? Approved by: Dangelo Gu M.D. on 02/27/2024 at 16:52 ? Dictated By: ?DANGELO GU ? Signed By: ?02/27/243 ? DD/ 51 ? TD/TT: ? Engineering Job Titles: Procedure Note Radiology, Radiologist, MD - 02/27/2024 [place] [address] Cardiology Report Signed Patient: GUNNAR PAZ JMR#: [id number] : 7Acct:[id number] Age/Sex: 88 / MADM Date: 02/27/24 Loc: CARD Attending Dr: DANGELO GU Ordering Physician: DANGELO GU Date of Service: 02/27/24 Procedure(s): CA echo doppler complete Accession Number(s): [id number] cc: Luciana Nicolas PAINT POURER; DANGELO GU Patient Name: GUNNAR PAZ MR#: [id number] : 1935 Exam Date: 02/27/2024 Ordering Doctor: [...] DANGELO GU Signed By:02/27/241652 DD/ 51 TD/TT: Engineering Job Titles: Authorizing ProviderResult TypeResult StatusGeneric External Data Provider CLINISYNC IMAGINGFinal Result documented in this encounter Visit Diagnoses Not on filedocumented in this encounter Additional Health Concerns AssessmentNoted TimePHQ-9 Depression Total Score: 10:24 AM EST documented as of this encounter Care Teams Team MemberRelationshipSpecialtyStart DateEnd Date Filipe Polanco MD PCP - GeneralFamily Medicine05/23/23 Luciana Nicolas NP [address] [place] [address] PCP - ACO Reach05/23/24 Luciana Nicolas NP Nurse PractitionerFamily Medicine05/23/23documented as of this encounter
--- OUTSIDE RECORDS SUMMARY | 2025-02-23 09:40 | XMS_ITS | CCD ---
Author Organization [facility] Care Team Providers Care Automobile Body Repairer Name Role Phone LITO CARDENASMatt JANA Referring Unavailable LITO JENNIFER NANCYALEA Primary Care Unavailable UNKNOWN, PROVIDER Attending Unavailable UNKNOWN, PROVIDER Admitting Unavailable Irvin White Primary Care Physician LUCIANA NICOLAS Primary Care Physician [phone] Wesley Diaz Primary Care Unavailable Joy Zhang Attending Unavailable Joy Zhang Admitting Unavailable MOUKABROOKLYNN, DR PIERSON Admitting Unavailable MOUKARBEL, DR PIERSON Attending Unavailable AICHHOLZ, RADIO STATION MANAGER LUCIANA Primary Care Unavailable MOUKARBTOSHIA, DR PIERSON Consulting Unavailable AICHHOLZ, RADIO STATION MANAGER LUCIANA Primary Care Unavailable CASTRO REYES Admitting Unavailable KATH ., CASTRO Attending Unavailable KATH .MICHAELID Consulting Unavailable MEGAN, MONSTER Admitting Unavailable MONSTER GUZMAN Attending Unavailable IRVIN WHITE Primary Care Unavailable AICHHOLZ, RADIO STATION MANAGER LUCIANA Admitting Unavailable AICHHOLZ, RADIO STATION MANAGER LUCIANA Attending Unavailable AICHHOLZ, RADIO STATION MANAGER LUCIANA Primary Care Unavailable DEJUAN GUZMANINDA Admitting Unavailable MONSTER GUZMAN Attending Unavailable AICHHOLZ, RADIO STATION MANAGER LUCIANA Primary Care Unavailable MEGAN, MONSTER Consulting Unavailable AICHHOLZ, RADIO STATION MANAGER LUCIANA Admitting Unavailable AICHHOLZ, RADIO STATION MANAGER LUCIANA Attending Unavailable AICHHOLZ, RADIO STATION MANAGER LUCIANA Primary Care Unavailable AICHHOLZ, RADIO STATION MANAGER LUCIANA Consulting Unavailable DR JOY LUNA Admitting Unavailable DR JOY LUNA Attending Unavailable AICHHOLZ, RADIO STATION MANAGER LUCIANA Primary Care Unavailable DR JOY LUNA Consulting Unavailable Sherri OROZCO, Filipe Primary Care Provider Filipe Polanco MD Primary Care Provider Aichhololayinka CRYPTOGRAPHIC VULNERABILITY ANALYST, Luciana Unavailable Fidencio CRYPTOGRAPHIC VULNERABILITY ANALYST, Luciana Unavailable DANGELO JAEGER Attending Unavailable Aicholz CRYPTOGRAPHIC VULNERABILITY ANALYST, Luciana Unavailable Joy ZHANG Attending Unavailable MILKA, Joy Gutierrez Attending Unavailable ZHANG, Joy Gutierrez Attending Unavailable MILKA, Joy Gutierrez Admitting Unavailable MILKA, Joy R Attending Unavailable AICHHOLZ, LUCIANA Attending Unavailable AICHHOLZ, LUCIANA Attending Unavailable AICHHOLZ, LUCIANA Attending Unavailable AICHHOLZ, LUCIANA Attending Unavailable Filipe Polanco MD Primary Care Provider Aiccaryl CRYPTOGRAPHIC VULNERABILITY ANALYST, Luciana Unavailable Aicholz CRYPTOGRAPHIC VULNERABILITY ANALYST, Luciana Unavailable Allergies Allergy ClassificationReported Allergen(s)Allergy TypeDate of OnsetReaction(s) Facility (12 sources)Penicillins; Translations: [penicillins]Drug allergy (disorder) 23-01-2778Jpjfgxu (qualifier value)[facility] Rep[facility] (10 sources)Dicloxacillin; Translations: [dicloxacillin]Drug Wsmcghe53-37-2278 Other (qualifier value)[facility] (1 source)Unable to AssessDrug allergy (disorder)80-26-2976FsqekoflhOhio[facility] (4 sources)Penicillin GDrug Mlwhfwk74-67-1350TvzpbgyGMOE Healthcare (20 sources)Penicillins; Translations: [penicillins]Drug Mzebkoglmcb82-67-4219 Other, Unknown (qualifier value)[facility] Medications Current Medications MedicationDrug Class(es)DatesSig (Normalized)Sig (Original)acetaminophen 325 mg / HYDROcodone bitartrate 5 mg oral tablet (20 sources)Opioid AgonistStart: 58-15-7035cponicfdyoocc-hydrocodone 325 mg-5 mg oral tablet 1 tab(s), Refill(s) 0 Start Date: 11/24/24 Status:Ordered Repeat number: 1Start: 11-04-2024 End: 99-49-9024mgyr 1 tablet by mouth onceHYDROcodone-acetaminophen (Maribel) 5- 325 MG tablet Indications: 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) , Phantom limb syndrome with pain (HCC) Take 1 tablet by mouth every 12 (twelve) hours if needed for severe pain 60 tablet 11/04/2024 12/04/2024 ActiveStart: 11-21-2023 End: 26-58-9855yore 1 tablet by mouth onceHYDROcodone-acetaminophen (Maribel) 5- 325 MG tablet Indications: Phantom pain Take 1 tablet by mouth every 12 (twelve) hours if needed for severe pain 60 tablet 09/22/2024 10/22/2024 ActiveStart: 05-16-2023 End: 06-13-6042kcsv 1 tablet by mouth twice daily as needed for painHYDROcodone- acetaminophen (Maribel) 5-325 MG tablet Indications: Phantom pain (CMS/HCC) Take 1 tabletby mouth 2 (two) times a day as needed for severe pain 60 tablet 0 05/16/2023 06/15/2023 ActiveStart: 60-73-4913Gjmls 325 mg-7.5 mg oral tablet 1 tab(s), Oral, Once, 1 tab(s), Refill(s) 0, Take 1 hour prior to procedure. Don't drive or operate machinery while taking this medication., [facility] [id number], 185, cm, 02/13/22 11:34:00 EDT, Height/Length Dosing, 74.8, kg, 02/13/22 11:34:00 E... Start Date: 05/01/22 Status: Orderedapixaban 2.5 mg oral tablet (20 sources)Factor Xa InhibitorStart: 70-36-0233vsim 1 tablet by mouth in the morningapixaban (Eliquis) 2.5 MG tablet Take 1 tablet by mouth in the morning and 1 tablet in the evening.10/30/2022 ActiveAspirin (4 sources)Platelet Aggregation Inhibitor, Nonsteroidal Anti-inflammatory Drug Start: 42-76-3248sjnsvfr Start Date: 09/24/19 Status: Orderedcholecalciferol 0.05 mg oral capsule (7 sources)Vitamin DStart: 05-30-2024 End: 42-38-0693icxj 1 capsule by mouth once dailycholecalciferol (Vitamin D-3) 50 MCG (1999 UT) capsule Indications: Vitamin D deficiency Take 1 capsule (50 mcg) by mouth Daily 90 capsule 05/30/2024 08/28/2024 Activeciprofloxacin 250 mg oral tablet (2 sources)Quinolone AntimicrobialStart: 05-40-5013pqrc 1 tablet by mouth twice dailyCipro 250 mg Tab 250 mg = 1 tab(s), Oral, BID, # 42 tab(s), Refills(s) 0, [id number], 185, cm, 12/12/21 12:02:00 EDT, Height/Length Dosing, 74.8, kg, 12/12/21 12:02:00 EDT, Weight Dosing Start Date: 12/12/21 Status: OrderedStart: 31-49-6712tgwg 1 mg by mouth every twelve hoursCipro 500 mg Tab mg tab(s), Oral, q12hr, Refills(s) 0 Start Date: 03/28/21 Status: Ordered ferrous gluconate 256 mg oral tablet (1 source)Start: 43-15-2477klogqii gluconate 256 mg (28 mg elemental iron) oral tablet 256 mg = 1 tab(s), Oral, Daily, # 100 tab(s), Refills(s) 0 Start Date: 12/08/19 Status: Orderedferrous sulfate 325 mg oral tablet (15 sources)Start: 11-07-2024 End: 43-69-1318mteo 1 tablet by mouth in the morningferrous sulfate 325 (65 Fe) MG tablet Indications: Iron deficiency anemia, unspecified iron deficiency anemia type Take 1 tablet (325 mg) by mouth in the morning and 1 tablet (325 mg) in the evening.Take with meals. 180 tablet 12/02/2024 03/02/2025 ActiveStart: 05-30-2024 End: 72-51-0149aqop 1 tablet by mouth at mealtimeferrous sulfate 325 (65 Fe) MG EC tablet Indications: Iron deficiency anemia, unspecified iron deficiency anemia type Take 1 tablet (325 mg) by mouth in the morning. Take with meals. Do not crush, chew, or split.. 90 tablet 1 05/30/2024 08/28/2024 ActiveStart: 11-21-2023 End: 63-11-2930rfkk 1 tablet by mouth at mealtimeferrous sulfate 325 (65 Fe) MG tablet Indications: Iron deficiency anemia, unspecified iron deficiency anemia type Take 1 tablet (325 mg) by mouth in the morning. Take with meals. 90 tablet 1 11/21/2023 02/19/2024 Activegabapentin 300 mg oral capsule (20 sources)Anti-epileptic AgentStart: 03-26-2023 End: 15-52-6330nwiy 1 capsule by mouth in the morninggabapentin (Neurontin) 300 MG capsule Indications: Phantom pain Take 1 capsule (300 mg) by mouth inthe morning and 1 capsule (300 mg) before bedtime. 180 capsule 1 05/28/2024 Active Start: 47-05-5703qoik 1 mg by mouth three times dailygabapentin 100 mg Cap mg cap(s), Oral, TID, Refills(s) 0 Start Date: 03/28/21 Status: Ordered Repeat number: 1HYDROcodone (2 sources)Opioid AgonistStart: 31-01-7752qrttjkospuf Oral, Refills(s) 0 Start Date: 03/28/21 Status: OrderedIron 100 Plus (1 source)Start: 23-91-9171Ttnn 100 Plus Oral, Daily, Refill(s) 0 Start Date: 03/28/21 Status: OrderedIron Chews (4 sources)Start: 36-95-5064mfxj 1 mg by mouth once dailyIron Chews mg, Oral, Daily, Refills(s) 0 Start Date: 12/01/22 Status: Ordered Repeat number: 1Start: 48-66-7035rcpr 1 mg by mouth once dailyIron Chews mg, Oral, Daily, Refills(s) 0 Start Date: 12/01/22 Status: Orderedlosartan potassium 25 mg oral tablet (20 sources)Angiotensin 2 Receptor BlockerStart: 03-16-2023 End: 16-35-6511jblq 1 tablet by mouth every other daylosartan (Cozaar) 25 MG tablet Take 25 mg by mouth every other day 1 tablet by mouth every other day 03/16/2023 ActiveStart: 03-16-2023 End: 17-25-0636jqaf 1 tablet by mouth every weeklosartan (Cozaar) 25 MG tablet Take 25 mg by mouth 1 (one) time per week 0 03/16/2023 03/26/2024 ActiveStart: 97-61-5317ocik 1 mg by mouth once dailylosartan 25 mg Tab mg tab(s), Oral, Daily, Refills(s) 0 Start Date: 12/10/20 Status: Ordered Repeat number: 1 metroNIDAZOLE 500 mg oral tablet (1 source)Nitroimidazole AntimicrobialStart: 14-82-7021kmnx 1 mg by mouth three times dailyMetroNIDAZOLE 500 mg Tab mg tab(s), Oral, TID, Refills(s) 0 Start Date: 03/28/21 Status: Cigjbxw17 hr mirabegron 50 mg extended release oral tablet (13 sources)beta3-Adrenergic AgonistStart: 08-18-2024 End: 13-01-4904ttut 1 tablet by mouth once dailyMyrbetriq 50 MG 24 hr tablet Take 50 mg by mouth Daily 08/18/2024 Kcruqi13 hr oxybutynin chloride 5 mg extended release oral tablet (8 sources)Cholinergic Muscarinic AntagonistStart: 96-82-6969bbnx 1 tablet by mouth every twenty-four hours at bedtimeoxybutynin XL (Ditropan-XL) 5 MG 24 hr tablet Take 1 tablet by mouth at bedtime 0 09/02/2022 ActiveStart: 12-12-2021 take 1 tablet by mouth at bedtimeoxybutynin 5 mg ER Tab 5 mg = 1 tab(s), Oral, Bedtime, # 30 tab(s), Refills(s) 11, Pharmacy: [facility] [id number], 185, cm, 12/12/21 12:02:00 EDT, Height/Length Dosing, 74.8, kg, 12/12/21 12:02:00 EDT, Weight Dosing Start Date: 12/12/21 Status: Orderedtamsulosin hydrochloride 0.4 mg oral capsule (20 sources)alpha-Adrenergic BlockerStart: 30-56-1743edme 1 capsule by mouth twice dailytamsulosin 0.4 mg Cap 0.4 mg = 1 cap(s), Oral, BID, # 180 cap(s), Refills(s) 3, Pharm[facility]: [facility] [id number], 185, cm, 08/17/23 9:39:00 EDT, Height/Length Dosing, 74, kg, 08/17/23 9:39:00 EDT, Weight Dosing Start Date: 02/12/24 Status: Ordered Quantity: 180.0 Unit: cap(s) Repeat number: 4Start: 84-42-3705bocp 1 capsule by mouth twice dailytamsulosin 0.4 mg Cap 0.4 mg = 1 cap(s), Oral, BID, # 180 cap(s), Refills(s) 3, Pharmacy: [facility], 185, cm, 12/01/22 9:15:00 EDT, Height/Length Dosing, 74.6, kg, 12/01/22 9:15:00 EDT, Weight Dosing Start Date: 01/22/23 Status: OrderedStart: 60-99-5941vdse 1 capsule by mouth twice dailytamsulosin 0.4 mg Cap 0.4 mg = 1 cap(s), Oral, BID, # 180 cap(s), Refills(s) 3, Pharmacy: [facility]), 185, cm, 12/12/21 12:02:00 EDT, Height/Length Dosing, 74.8, kg, 12:02:00 EDT, Weight Dosing Start Date: 01/20/22 Status: OrderedStart: 80-41-1006eamp 1 capsule by mouth twice dailytamsulosin 0.4 mg Cap 0.4 mg = 1 cap(s), Oral, BID, # 180 cap(s), Refills(s) 3, Pharmacy: [facility], 185, cm, 12/10/20 11:18:00 EDT, Height/Length Dosing, 75.4, kg, 12/10/20 11:18:00 EDT, Weight Dosing Start Date: 12/10/20 Status: Orderedtake 1 capsule by mouth every twenty-four hours in the morningtamsulosin (Flomax) 0.4 MG 24 hr capsule Take 1 capsule by mouth in the morning. ActiveVitamin B1 (1 source)Start: 62-41-9383Sqgxtvt B1 Daily, Refills(s) 0 Start Date: 03/28/21 Status: Orderedvitamin B12 (19 sources)Vitamin G06Ihvdf: 60-34-3197Pzonztu B-12 Refills(s) 0 Start Date: 8/18/23 Status: Ordered Repeat number: 1Start: 65-06-5957Wbjsamj B-12 Refills(s) 0 Start Date: 12/01/22 Status: Ordered End: 26-43-7246mjca 1 tablet by mouth in the morningcyanocobalamin (Vitamin B- 12) 1000 MCG tablet Take 1 tablet by mouth in the morning. 05/28/2024 Disc ontinued Completed/Discontinued Medications MedicationDrug Class(es)DatesSig (Normalized)Sig (Original)doxycycline hyclate 100 mg oral capsule (1 source)Tetracycline-class DrugStart: 00-58-2199lepk 1 capsule by mouth once dailydoxycycline hyclate 100 mg Cap 100 mg = 1 cap(s), Oral, Daily, Take 1 pill the day before the procedure and 1 pill after the procedure, # 2 cap(s), Refills(s) 0, Pharmacy: [id number], 185, cm, 03/28/21 13:13:00 EST, Height/Length Dosing, 75.4, kg, 03/28/21 13:13:00 EST, We... Start Date: Status: Orderedfluticasone 0.05 mg/inh Nasal [place] (6 sources)Start: 62-38-4153oecr 1 spray(s) nasal route once dailyfluticasone 0.05 mg/inh Nasal [place] Refill(s) 0, 16 gm, SPRAY 1 SPRAY INTO EACH NOSTRIL EVERY DAY Start Date: 02/13/22 Status: Ordered Repeat number: 1Start: 02-13-2022 take 1 spray(s) nasal route once dailyfluticasone 0.05 mg/inh Nasal [place] Refill(s) 0, 16 gm, SPRAY 1 SPRAY INTO EACH NOSTRIL EVERY DAY Start Date: 02/13/22 Status: Ordered Problems Active Problems Problem ClassificationProblemDateDocumented DateEpisodic/ChronicAortic; peripheral; and visceral artery aneurysms (20 sources)Thoracic aortic ectasia; Translations: [Aneurysm of ascending aorta] Onset: 28-41-692517991626-17-9058EnktnbgUnjzgwh dysrhythmias (20 sources)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; Translations: [Unspecified atrial fibrillation]Onset: 02-11-2016 Resolved: 32-93-2803OvkhiuzButapndjx hypertension (20 sources)Hypertensive disorder; Translations: [Essential (primary) hypertension]Onset: 02-02-2021 Resolved: 345942-87-2927CsysgiqJcnsilfofhm of prostate (20 sources)Benign prostatic hypertrophy with outflow obstruction; Translations: [Benign prostatic hyperplasia with lower urinary tract symptoms]Onset: 124234-68-3533CkpolmpWkgavjcbtoomx gastroenteritis (7 sources)Gastroenteritis; Translations: [Noninfective gastroenteritis and colitis, unspecified]Onset: 857300-20-0475ClvxvnfaKbobyxinrps deficiencies (20 sources)Vitamin D deficiency; Translations: [Vitamin D deficiency, unspecified]Onset: 945530-41-5394PhjkdoxCmvc wounds of extremities (20 sources)Amputated right lower limb above knee; Translations: [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, initial encounter] Onset: 490373-38-4042YumwyygNxuohwzqrgnrgq (8 sources)Gjwfclsba28-84-6415JctdmsiUltge diseases of kidney and ureters (1 source)Urinary tract obstruction; Translations: [Other obstructive and reflux uropathy]Onset: 15-17-6216EkpazjyfAolti ear and sense organ disorders (20 sources)Hearing loss; Translations: [Unspecified hearing loss, unspecified ear]Onset: 426203-76-9422HjnyuqfNgjbl injuries and conditions due to external causes (2 sources)History of falling; Translations: [History of falling]Onset: 69-77-6896BkiteqrvShuqb lower respiratory disease (1 source)Shortness of breath; Translations: [SHORTNESS OF BREATH]Onset: 13-49-8691FvdphowkMlauq nervous system disorders (20 sources)Phantom pain; Translations: [Phantom limb syndrome with pain]Onset: 258107-42-8598EtlrzcwLevag nervous system disorders (20 sources)Phantom limb syndrome with pain; Translations: [Phantom limb syndrome with pain]Onset: 02-06-2019 Resolved: 783141-17-5453ZjpsoufWbqyx nervous system disorders (2 sources)Unsteadiness on feet; Translations: [Unsteadiness on feet]Onset: 78-26-0478UomvqxxeVnltxrjhf heart disease (20 sources)Pulmonary hypertension; Translations: [Pulmonary hypertension, unspecified]Onset: 084220-09-7970DnvxagrYsvzfrsh enteritis and ulcerative colitis (20 sources)Crohn's disease; Translations: [Crohn's disease of small intestine] Onset: 888227-54-2087HhvehikEkbweynpflvu (1 source)CONTACT W/AND (SUSP) EXPOS COVID-19; Translations: [CONTACT W/AND (SUSP) EXPOS COVID-19]Onset: 65-16-3879Laxvfmbprtdy (1 source)Aneurysm of the ascending aorta, without rupture; Translations: [Aneurysm of the ascending aorta, without rupture]Onset: 03-31-2024 Past or Other Problems Problem ClassificationProblemDateDocumented DateEpisodic/ChronicDeficiency and other anemia (20 sources)Iron deficiency anemia; Translations: [Iron deficiency anemia, unspecified]Onset: 247713-87-4274TmrvjtpxFdqtgvummwveq symptoms and ill- defined conditions (20 sources)Blood in urine; Translations: [Gross hematuria]Onset: 09-16-2021 EpisodicMood disorders (20 sources)Mood disordersOnset: 991537-87-8709Zhfiurmwffr deficiencies (20 sources)Deficiency of other specified B group vitamins; Translations: [Cobalamin deficiency]Onset: 834763-37-5450XbfeqjulEelc wounds of extremities (20 sources)Amputated left lower limb above knee; Translations: [Complete traumatic amputation at level betweenleft hip and knee, initial encounter]Onset: 2023 Resolved: 572479-18-7222XuvnwcoYrzda aftercare (1 source)Other detention (current) drug therapy; Translations: [OTH SNF CURRENT DRUG THERAPY]Onset: 88-54-9790VncwgylzFycob non-epithelial cancer of skin (20 sources)Basal cell carcinoma of back; Translations: [Basal cell carcinoma of skin of other part of trunk]Onset: 452338-24-7189YpitaeogLmnid screening for suspected conditions (not mental disorders or infectious disease) (20 sources)Raised prostate specific antigen; Translations: [Elevated prostate specific antigen [PSA]]Onset: 565453-54-3380EmpfjecrDuieb upper respiratory disease (3 sources)Nasal congestion; Translations: [NASAL CONGESTION]Onset: 09-17-2021 EpisodicOther upper respiratory infections (2 sources)Acute upper respiratory infection, unspecified; Translations: [Acute sinusitis, unspecified]Onset: 34-96-6880BzpbeeovZjkhsgbbieltav care; fitting of prostheses; and adjustment of devices (20 sources)Follow-up status; Translations: [Encounter for fitting and adjustment of unspecified external prosthetic device]Onset: EpisodicResidual codes; unclassified (20 sources)H/O: anticoagulant therapy; Translations: [Personal history of other drug therapy]Onset: 135254-33-4039XbcbwnlhNodjcgfyz and history of mental health and substance abuse codes (1 source)Personal history of nicotine dependence; Translations: [PERSONAL HISTORY OF NICOTINE DEPEND]Onset: 41-40-2844FmmpkevvEqgmrcnxrwaz (1 source)Aneurysm of the ascending aorta, without rupture; Translations: [Aneurysm of the ascending aorta, without rupture]Onset: 03-31-2024 Results Test NameValueInterpretationReference RangeFacilityALL CBC WITH AUTO DIFFon [id number] ABSOLUTE AUTO0.1[facility] HealthcareBasophils/100 WBC (Bld)0.8 % 0.2 - 2.0 %[facility] HealthcareEosinophils/100 WBC (Bld)3 %0.9 - 7.0 %[facility] Erythrocyte distribution width (RBC) [Ratio]13.7 %11.0 - 15.0 %[facility] Hematocrit (Bld) [Volume fraction]33.8 %Low42.0 - 54.0 %[facility] Hemoglobin (Bld) [Mass/Vol]11 g/dLLow14.0 - 18.0 g/dLNOMS HealthcareIMMATURE GRANULOCYTES ABS AUTO0.02[facility] HealthcareImmature granulocytes/100 WBC (Bld)0.3 % 0.0 - 0.5 %[facility] HealthcareInterpretation and review of laboratory results AbnormalNOMS HealthcareLYMPHOCYTES ABSOLUTE AUTO1.2[facility] Lymphocytes/100 WBC (Bld)19.1 %Low20.5 - 60.0 %[facility]S HealthcareMCH (RBC) [Entitic mass]29.1 pg25.9 - 34.0 pgCox BransonHC (RBC) [Mass/Vol]32.5 g/dL29.9 - 35.2 g/dLCox BransonV (RBC) [Entitic vol]89.4 fL80.0 - 94.0 fLWestern Missouri Medical CenterMONOCYTES ABSOLUTE AUTO0.4[facility] CenterMonocytes/100 WBC (Bld)6.8 % 1.7 - 12.0 %[facility] CenterNEUTROPHILS ABSOLUTE AUTO4.5[facility] Neutrophils/100 WBC (Bld)70 %43.0 - 75.0 %[facility] CenterPlatelet mean volume (Bld) [Entitic vol]10.3 fL9.5 - 13.5 fLWestern Missouri Medical CenterTB EO #0.2[facility] [id number] Memorial Hospital RBC3.78LowUniversity of Missouri Children's Hospital WBC6.4NOFreeman Heart Institute CLINISYNCWestern Missouri Medical CenterUrology Office/Clinic Noteon [id number] Office/Clinic NoteUrology Office/Clinic Note Chief Complaint pt here for [...] Contact Information MILKA OROZCO, Joy Gutierrez, URL [address] [place] [address] [place] [address] Additional Instructions: 6 mos Patient Education Urinary Frequency, Adult I, Kristie Squires, personally scribed for Dr. Zhang on 11/24/2024 13:12:08. . Documentation recorded by the scribe, Kristie Squires, accurately reflects the services(s) I performed and decisions made by me. Authenticated by Dr. Zhang on 11/24/2024 13:15:41. Problem List/Past Medical History Ongoing Arthritis Atrial fibrillation BPH with urinary obstruction Crohn's disease Elevated PSA Gross hematuria Hematuria, microscopic Hx of detention use of blood thinners Hypertension Hypertensive disorder Nocturia Weak urine stream Historical No qualifying data Procedure/Surgical History Transrectal needle biopsy of prostate (05/16/2022), TURP - Transurethral resection of prostate (08/19/2015), Urodynamics (07/28/2015), Transurethral resection of prostate (11/30/2009), Transurethral resection of prostate (09/07/2009), Amputation of leg, Colonoscopy, Hernia repair, Unlisted procedure, femur or knee. Medications acetaminophen-hydrocodone 325 mg-5 mg oral tablet, 1 tab(s) Eliquis 2.5 mg oral tablet fluticasone 0.05 mg/inh Nasal [place] gabapentin 100 mg Cap, Oral, TID Iron [...] virus vaccine, inactivated 01/09/2022 Recorded SARS-CoV-2 (COVID-19) mRNAMUL.[id number] 01/09/2022 Recorded SARS-CoV-2 (COVID-19) mRNA BNT-162b2 vax 03/04/2021 Recorded influenza virus vaccine, inactivated 02/23/2021 Recorded SARS-CoV-2 (COVID-19) mRNA-1273 vaccine 06/22/2020 Recorded SARS-CoV-2 (COVID-19) mRNA-1273 vaccine 05/24/2020 Recorded (more content not included)...NormalHenry County HospitalComment on above: Result Comment: Electronically Signed By: Joy ZHANG MD\.br\Date and Time Signed: 11/24/24 13:15 EDT\.br\Electronically Co-Signed By: Kristie Squires\.br\Date and Time Co-Signed: 11/24/24 13:12 EDTUrine Cytology ([facility])on 99-12-5833Rudpcehxptw exam Cytology (U) [Interp]Diagnosis InfoInvalid Interpretation [facility] HospitalComment on above:Result Comment: A:Urine,Urine:Voided Interpretation - Adequate cellularity for evaluation. CPT 42271 MicroScopic Description - Adequacy - Gross Description Site ID:A color Yellow fixative Alcohol Specimen designated Urine received in alcohol preservative and labeled with the patient???s name, consists of 100ml clear yellow fluid. Electronically signed by : on: 08/21/2024 13:07:55Performed By: #### [id number] #### Joe [facility] [address] [place], [place] [address]Fwjfalbaia Visit Summaryon [id number] Visit Summary Ambulatory Visit Summary ROBIN PAZ [...] B-12) fluticasone nasal (fluticasone 0.05 mg/inh Nasal [place]) gabapentin (gabapentin 100 mg Cap) losartan (losartan [...] [facility] [address], [place] [address] [phone] Medications What How Much When Why Instructions New mirabegron (mirabegron 50 mg oral tablet, extended release) 1 Tablets By Mouth Every day Nocturia Duration: 30 Days Refills: 11 Pickup at [facility] [id number] Unchanged tamsulosin (tamsulosin 0.4 mg Cap) 1 Capsules By Mouth 2 times a day Unchanged apixaban (Eliquis 2.5 mg oral tablet) Contact prescribing physician if questions or concerns Unchanged carbonyl iron (Iron Chews) By Mouth Every day Contact prescribing physician if questions or concerns Unchanged cyanocobalamin (Vitamin B-12) Contact prescribing physician if questions or concerns Unchanged fluticasone nasal (fluticasone 0.05 mg/ inh Nasal [place]) 16 gm, SPRAY 1 SPRAY INTO EACH NOSTRIL EVERY DAY Contact prescribing physician if questions or concerns Unchanged gabapentin (gabapentin 100 mg Cap) By Mouth 3 times a day Contact prescribing physician if questions or concerns Unchanged losartan (losartan 25 mg Tab) By Mouth Every day Contact prescribing physician if questions or concerns Pharmacy Information [facility] [id number]: [address], [place] [phone] Allergies dicloxacillin (Other) penicillins (Unknown) Problems Ongoing - Any problem that you are currently receiving treatment for. Arthritis Atrial fibrillation BPH with urinary obstruction Crohn's disease Elevated PSA Gross hematuria Hematuria, microscopic Hx of detention use of blood thinners Hypertension Hypertensive disorder [...] sweeteners, citrus, tomato-base (more content not included)... NormalHenry County HospitalUrine Cytology ([facility])on [id number] Method of ExtractionVoidedNoHighland District HospitalComment on above:Performed By: #### [id number] #### [facility] [address] [place], [place] [address]LA Number of Xxhf3Oeakjbt Interpretation CodeHenry County HospitalComment on above:Performed By: #### [id number] #### [facility] [address], [place] [address]IM SpecimenUrineNormWexner Medical CenterComment on above:Performed By: #### [id number] #### Diaz [facility] [address] [place], [place] [address]LU Type of ServiceTechnical OnlyNormWexner Medical CenterComment on above:Performed By: #### [id number] #### Joe [facility] [address] [place], [place] [address]Pnbdtil Office/Clinic Noteon 19-37-1294Bwaljzw Office/Clinic NoteUrology Office/Clinic Note Chief Complaint 1 year follow up HPI Staff 89 year old male patient here for one year follow up. Previous DX: BPH with urinary obstruction, gross hematuria. *Flomax 0.4 mg BID-refill sent to [facility] IPSS 13 Current PSA 11.38 05/28/24 3x [...] to Christopher Barr. Pt to call if costprohibitive. -Cont Tamsulosin wo changes. 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 Medications Eliquis 2.5 mg oral tablet fluticasone 0.05 mg/inh Nasal [place] gabapentin 100 mg Cap, Oral, TID Iron [...] age 35 Years. Hous (more content not included)...Berger HospitalComment on above:Result Comment: Electronically Signed By: Joy ZHANG MD\.br\Date and Time Signed: 08/18/24 10:51 EDT\.br\Electronically Co-Signed By: Kristie Squires\.br\Date and Time Co-Signed: 08/18/24 10:38 EDT\.br\Electronically Co-Signed By: Kristie Squires\.br\Date and Time Co-Signed: 08/18/24 10:40 EDTALL CBC WITH AUTO DIFFon 20-85-4986LXVTRPZNQ ABSOLUTE AUTO0.1NOMS HealthcareBasophils/100 WBC (Bld)0.8 %0.2 - 2.0 %NOMS HealthcareEosinophils/100 WBC (Bld)3.9 %0.9 - 7.0 % [facility] CenterErythrocyte distribution width (RBC) [Ratio]13.6 %11.0 - 15.0 % [facility] CenterHematocrit (Bld) [Volume fraction]32.5 %Low42.0 - 54.0 %[facility] CenterHemoglobin (Bld) [Mass/Vol]10.4 g/dLLow14.0 - 18.0 g/dLWestern Missouri Medical Center IMMATURE GRANULOCYTES ABS AUTO0.02NOFreeman Heart InstituteImmature granulocytes/100 WBC (Bld)0.3 %0.0 - 0.5 %[facility] CenterInterpretation and review of laboratory resultsAbnormalWestern Missouri Medical CenterLYMPHOCYTES ABSOLUTE AZKX2PqyYSFU [facility] Lymphocytes/100 WBC (Bld)14.3 %Low20.5 - 60.0 %[facility] BransonH (RBC) [Entitic mass]28.8 pg25.9 - 34.0 pgCox BransonHC (RBC) [Mass/Vol]32 g/dL29.9 - 35.2 g/dLCox BransonV (RBC) [Entitic vol]90 fL80.0 - 94.0 fLWestern Missouri Medical CenterMONOCYTES ABSOLUTE AUTO0.5NOFreeman Heart InstituteMonocytes/100 WBC (Bld)6.6 % 1.7 - 12.0 %[facility] CenterNEUTROPHILS ABSOLUTE AUTO5.4NOMS [facility] Neutrophils/100 WBC (Bld)74.1 %43.0 - 75.0 %[facility] CenterPlatelet mean volume (Bld) [Entitic vol]9.9 fL9.5 - 13.5 fLWestern Missouri Medical CenterTB EO #0.3[facility] TBH BCV779GHZTPershing Memorial Hospital RBC3.61LowNOPershing Memorial Hospital WBC7.3NOFreeman Heart Institute CLINISYNCHIGHLAND R[facility] HealthcareOffice Visiton 69-65-0512Brityw-up [id number] Robin Paz 1935 M Date Provider Department Center 03/31/2024 DANGELO KINSEY Hos Family History Problem Relation Age of Onset Coronary artery disease Paternal Grandmother Family Status - Relation Status Age at Paternal Grandmother Level of Service:63233 CO OFFICE/OUTPATIENT ESTABLISHED MOD MDM 30 [facility] HospitalCA ECHO DOPPLER COMPLETEon 71-60-8349[place]tyJeff[place] [address] Cardiology Report Signed Patient: ROBIN PAZ MR#: [id number] : 1935 Acct:[id number] Age/Sex: 88 / M ADM Date: 02/27/24 Loc: CARD Attending Dr: DANGELO JAEGER Ordering Physician: DANGELO JAEGER Date of Service: 02/27/24 Procedure(s): CA echo doppler complete Accession Number(s): [id number] cc: Luciana Nicolas CRYPTOGRAPHIC VULNERABILITY ANALYST; DANGELO JAEGER Patient Name: ROBIN PAZ MR#: [id number] : 1935 Exam Date: 02/27/2024 Ordering Doctor: DR DANGELO JAEGER M.D. ECHOCARDIOGRAM REPORT PROCEDURE: CA ECHO DOPPLER [...] Gradient: 1.10 mm[Hg], 2.33 mm[Hg] Mean Velocity: (more content not included)...TBHRadiology, Radiologist, - 02/27/2024 [place] [address] Cardiology Report Signed Patient: ROBIN PAZ MR#: [id number] : 1935 Acct:[id number] Age/Sex: 88 / M ADM Date: 02/27/24 Loc: CARD Attending Dr: DANGELO JAEGER Ordering Physician: DANGELO JAEGER Date of Service: 02/27/24 Procedure(s): CA echo doppler complete Accession Number(s): [id number] cc: Luciana Nicolas NP; DANGELO JAEGER Patient Name: ROBIN PAZ MR#: [id number] : 1935 Exam Date: 02/27/2024 Ordering Doctor: DR DANGELO JAEGER M.D. ECHOCARDIOGRAM REPORT PROCEDURE: CA ECHO DOPPLER [...] 30.37 ml, 30.37 ml Dictated by: Dangelo Jaeger M.D. on 02/27/2024 at 16:44 Approved by: Dangelo Jaeger M.D. on 02/27/2024 at 16:52 Dictated By: DANGELO JAEGER Signed By: 02/27/241652 DD/ 51 TD/TT: Director Risk: [facility] CenterRadiology Study observation (narrative)[facility] ECHO DOPPLER COMPLETEOrdered By: Radiologist Radiology on 16-05-0637[facility] Work Phone: tbh UA (CLEAN/CATCH) MICROSCOPIC IF INDICATEon 77-72-8713BPGTQDBXH URINENegativeNEGATIVENOMS HealthcareBLOOD URINETRACE-I NEGATIVENOMS HealthcareClarity (U)CLEARCLEARNOMS HealthcareColor (U)LT. YELLOW YELLOWNOMS HealthcareGLUCOSE URINE UANegativeNEGATIVE mg/dLNOMS Healthcare Ketones Ql (U)NegativeNEGATIVE mg/dLNOMS HealthcareLeukocyte esterase Test strip Ql (U)NegativeNEGATIVENOMS HealthcareNITRITE URINENegativeNEGATIVENOMS HealthcarepH (U)7.5 [pH]5.0 - 9.0NOMS HealthcarePROTEIN URINENegativeNEG/TRACE mg/dLNOMS HealthcareSPECIFIC GRAVITY URINE1.0151.005 - 1.025NOMS HealthcareURINE MICROSCOPIC INDICATEDYESNOMS HealthcareUROBILINOGEN URINE0.2 EU/dL0.2 - 1.0 EU/dLNOMS HealthcareCLINISYNCNOMS HealthcareECHOCARDIO M/2D COMPLETEon 71-62-3956OOGIOTGAEO M/2D COMPLETEPatient: ROBIN PAZ Exam Date: 06/21/2022 : 1935 Gender:M Ordering : DR DANGELO JAEGER M.D. Admission #: [id number] Family : JAYLON NICOLAS RADIO STATION MANAGER Order #: [id number] CLICK HERE TO VIEW EXAM ECHOCARDIOGRAM REPORT [...] by: Dangelo Jaeger M.D. on 06/22/2022 at 13:32[facility] XRay CREon 24-73-4551Ahhjeahxzl [Mass/Vol]0.8 mg/dLNormal0.6-1.3 [facility] CenterComment on above:Result Comment: ER/ESD physician is notified/shown all ISTAT results. Critical values may be confirmed by laboratory testing if deemed necessary by ER attending doctor.Performed By: #### ISCRE #### [facility] [address] [place] [address] Point of Care testing ,ISTAT GFR (> 60NormHarrison Community HospitalComment on above:Result Comment: GFR estimated reference range: According to KDOQI guidelines, <60 ml/min/1.73m2 is sufficient to diagnose a patient with chronic kidney disease. PERFORMED BY: [place] [address] PATHOLOGIST HYDROLOGY TECHNICIAN DORINDA FISHER M.D.Performed By: #### ISCRE #### [address] Point of Care testing ,ISTAT GFR (Non- Am> 60NormHarrison Community HospitalComment on above:Performed By: #### ISCRE #### [address] Point of Care testing ,MR prostate wo/w conon 41-64-6833MS prostate wo/w [facility] [place] [address] [place] [address] MRI Report Signed Patient: Robin Paz MR#: [id number] : 1935 Acct:[id number] Age/Sex: 86 / M ADM Date: 03/22/22 Loc: Room: Type: [facility] Attending Dr: oJy Zhang MD Copies to: Joy Zhang MD [...] Chahal Jr., D.OFranklin03/22/2022 12:41 PM Dictation Location: [place] [address] Transcribed By: [facility] 03/22/22 1241 Dictated By: Shahbaz Chahal Jr, DO 03/22/22 1228 Signed By: 03/22/22 1241[facility] AUTO DIFFon 10-13-2021 BASO #0.1 103/ulNormal0.0-0.1[facility] - DublinComment on above:Performed By: #### CBC #### [facility] [address] [place] [address] [address] Jose SaenzBasophils/100 WBC (Bld)0.8 %Normal0.2-2.0The [facility] Comment on above:Performed By: #### CBC #### [facility] [address] [place] [address] [address] Jose Gracia #0.4 103/ulNormal0.0-0.7The [facility] HospitalComment on above: Performed By: #### CBC #### [facility] [address] [place] [address] [address] Jose Spencerosinophils/100 WBC (Bld)5.8 %Normal0.9-7.0The [facility] Comment on above:Performed By: #### CBC #### [facility] [address] [place] [address] Dr. Jose Spencerrythrocyte distribution width (RBC) [Ratio]13.2 %Tzxkfg21.0-15.0 [facility] on above:Performed By: #### CBC #### [facility] [address] [place] [address] Dr. Jose SaenzHematocrit (Bld) [Volume fraction]33.3 %Critically low42.0-54.0 The [facility] HospitalComment on above:Performed By: #### CBC #### [facility] [address] [place] [address] Dr. Jose SaenzHemoglobin (Bld) [Mass/Vol]10.6 g/dLCritically low14.0-18.0[facility] - DublinComment on above:Performed By: #### CBC #### [facility] [address] [place] [address] Dr. Jose Conn #0.03 10e3/ulNormal0.00-0.03[facility] - DublinComkalkaska memorial health center on above:Performed By: #### CBC #### [facility] [address] [place] [address] Dr. Jose Conn %0.4 %Normal0.0-0.5The [facility] on above: Performed By: #### CBC #### [facility] [address] [place] [address] Dr. Jose HernandezH #1.4 103/ulNormal1.2-3.8The [facility] HospitalComkalkaska memorial health center on above:Performed By: #### CBC #### [facility] [address] [place] [address] Dr. Jose Lopesmphocytes/100 WBC (Bld)18.9 %Critically low20.5-60.0[facility] - DublinComkalkaska memorial health center on above:Performed By: #### CBC #### [facility] [address] [place] [address] Dr. Jose FerrerUAL DIFF REQNONormalThe [facility] HospitalComment on above: Performed By: #### CBC #### [facility] [address] [place] [address] [address] Jose Montejo (RBC) [Entitic mass]29.2 piPbjmlj12.9-34.0The [facility] HospitalComment on above:Performed By: #### CBC #### [facility] [address] [place] [address] Dr. Jose Montejo (RBC) [Mass/Vol]31.8 g/dSFjilhy45.9-35.2The Sigel HospitalComment on above:Performed By: #### CBC #### [facility] [address] [place] [address] Dr. Jose Montejo (RBC) [Entitic vol]91.7 sWPiqqex14.0-94.0The [facility] HospitalComment on above:Performed By: #### CBC #### [facility] [address] [place] [address] Dr. Jose Lin #0.6 103/ulNormal0.3-0.8The [facility] HospitalComment on above:Performed By: #### CBC #### [facility] [address] [place] [address] Dr. Jose Dasocytes/100 WBC (Bld)8.8 %Normal1.7-12.0The [facility] Comment on above:Performed By: #### CBC #### [facility] [address] [place] [address] Dr. Jose Genao #4.7 103/ulNormal1.4-6.5The [facility] HospitalComment on above:Performed By: #### CBC #### [facility] [address] [place] [address] Dr. Jose Regaladoutrophils/100 WBC (Bld)65.3 %Sqluwa67.0-75.0The [facility] HospitalComment on above:Performed By: #### CBC #### [facility] [address] [place] [address] Dr. Jose Higginslet mean volume (Bld) [Entitic vol]11.2 fLNormal9.5-13.5The [facility] HospitalComment on above:Performed By: #### CBC #### [facility] [address] [place] [address] Dr. Jose SaenzPLT276 103/czWnskmh463-959Kti [facility] HospitalComment on above: Performed By: #### CBC #### [facility] [address] [place] [address] Dr. Jose SaenzRBC3.63 106/ulCritically low4.70-6.10The [facility] HospitalComment on above:Performed By: #### CBC #### [facility] [address] [place] [address] Dr. Jose SaenzWBC7.2 103/ulNormal4.0-11.0The [facility] HospitalComment on above: Performed By: #### CBC #### [facility] [address] [place] [address] Dr. Jose Forrester 14(COMP METB)on 98-00-4515Lqywsqe [Mass/Vol]3.3 g/dL Critically low3.4-5.0The [facility] HospitalComment on above:Performed By: #### CMP #### [facility] [address] [place] [address] Dr. Jose SaenzAlbumin/Globulin [Mass ratio]0.9 {ratio}NormalThe [facility] HospitalComkalkaska memorial health center on above:Performed By: #### CMP #### [facility] [address] [place] [address] Dr. Jose August [Catalytic activity/Vol]72 U/BImhfhf01-878Xjr [facility] HospitalComment on above:Performed By: #### CMP #### [facility] [address] [place] [address] Dr. Jose Smith [Catalytic activity/Vol]28 U/ZRobiju10-21Qow [facility] HospitalComment on above:Performed By: #### CMP #### [facility] [address] [place] [address] Dr. Jose Garsia gap [Moles/Vol]10.0 mmol/LNormalThe [facility] Comment on above:Performed By: #### CMP #### [facility] [address] [place] [address] [address] Jose SaenzAST [Catalytic activity/Vol]21 U/IBturwh89-89Kmj [facility] HospitalComment on above:Performed By: #### CMP #### [facility] [address] [place] [address] [address] Jose SaenzBilirubin [Mass/Vol]0.4 mg/dLNormal0.2-1.0The [facility] Comment on above:Performed By: #### CMP #### [facility] [address] [place] [address] [address] Jose SaenzCalcium [Mass/Vol]8.8 mg/dLNormal8.5-10.1[facility] Comment on above:Performed By: #### CMP #### [facility] [address] [place] [address] [address] Jose SaenzChloride [Moles/Vol]102 mmol/KEojvni21-940Exy [facility] Comment on above:Performed By: #### CMP #### [facility] [address] [place] [address] [address] Jose SaenzCO2 [Moles/Vol]32.0 mmol/IIiyzpn16.0-32.0[facility] Comment on above:Performed By: #### CMP #### [facility] [address] [address] [address] Jose SaenzCreatinine [Mass/Vol]0.82 mg/dLNormal0.70-1.30The [facility] HospitalComment on above:Performed By: #### CMP #### [facility] [address] [place] [address] [address] Jose SpencerGFR-AF ARGENTINE>60Normal>=60The [facility] HospitalComment on above:Performed By: #### CMP #### [facility] [address] [address] [address] Jose SpencerGFR-NON AF ARGENTINE>60Normal>=60The [facility] HospitalComment on above:Performed By: #### CMP #### [facility] [address] [address] [address] Jose SaenzGlobulin (S) [Mass/Vol]3.7 g/dLNormRegency Hospital ToledoComment on above:Performed By: #### CMP #### [facility] [address] [address] [address] Jose SaenzGlucose [Mass/Vol]86 mg/qFBopxwo72-457Yuu [facility] Comment on above:Performed By: #### CMP #### [facility] [address] [place] [address] [address] Jose SaenzPotassium [Moles/Vol]5.0 mmol/LNormal3.5-5.1The [facility] Comment on above:Performed By: #### CMP #### [facility] [address] [place] [address] [address] Jose SaenzProtein [Mass/Vol]7.0 g/dLNormal6.4-8.2The [facility] Comment on above:Performed By: #### CMP #### [facility] [address] [place] [address] [address] Jose SaenzSodium [Moles/Vol]139 mmol/SMuioev099-562MaySelect Medical [facility] - [facility] Comment on above:Performed By: #### CMP #### [facility] [address] [place] [address] [address] Jose SaenzUrea nitrogen [Mass/Vol]11.0 mg/dLNormal7.0-18.0The [facility] HospitalComment on above:Performed By: #### CMP #### [facility] [address] [place] [address] [address] Jose Aguilar nitrogen/Creatinine [Mass ratio]13.4 mg/mgNoUniversity Hospitals Samaritan Medical CenterComment on above:Performed By: #### CMP #### [facility] [address] [address] [address] Jose SaenzUA RANDOM W/MICROSCOPICon 83-46-9487SVRLBXXCEJIVODmiilmutZYFI SEENThe [facility] HospitalComment on above:Performed By: #### UAMIC ####[facility] I[address]oeom[address] [place], [place] [address]Dr. Yilan Saenz Bilirubin Ql (U)NegativeNormalNEGATIVESelect Medical [facility] Rehabilitation Hospital - DublinComment on above: Performed By: #### UAMIC ####[facility] [address] [place], [place] [address]Dr. Yilan ChangCASTNONE SEENNormalNONE SEENThe [facility] HospitalComment on above:Performed By: #### UAMIC ####[facility] Yfswqkneop[address] [place], [place] [address]Dr. Yilan ChangClarity (U) CLEARNormalCLEARSelect Medical [facility] Rehabilitation Hospital - DublinComment on above:Performed By: #### UAMIC ####[facility] Jchdhreqcl[address] [place], [place] [address]Dr. Yilan ChangColor (U)LT. YELLOWNormalYELLOWSelect Medical [facility] Rehabilitation Hospital - DublinComment on above: Performed By: #### UAMIC ####[facility] T[address] [place], [place] [address]Dr. Yilan ChangCrystals LM Nom (Urine sed)NONE SEEN NormalNONE SEENSelect Medical [facility]health Rehabilitation Hospital - DublinComment on above:Performed By: #### UAMIC ####[facility] Ndkvadqrnt[address] [place], [place] [address]Dr. Yilan ChangEpithelial cells LM Ql (Urine sed)RARENormalNONE SEEN /RAREThe [facility] HospitalComment on above:Performed By: #### UAMIC ####[facility] [address]mltfpj[address] [place], [place] [address]Dr. Yilan ChangGlucose Ql (U) NegativeNormalNEGATIVESelect Medical [facility] Hospital - DublinComment on above:Performed By: #### UAMIC ####[facility] [address]zwrxcb[address] [place], [place] [address]Dr. Yilan ChangHemoglobin Ql (U)NegativeNormalNEGATIVEUc Medical Center on above:Performed By: #### UAMIC ####[facility] Bbcmixeigq[address] [place], [place] [address]Dr. Yilan ChangKetones Ql (U)NegativeNormal NEGATIVESelect Medical [facility] Hospital - DublinComment on above:Performed By: #### UAMIC ####[facility] E[address]zcys[address] [place], [place] [address]Dr. Yilan ChangLEUKOCYTESNegativeNormalNEGATIVEThe [facility] HospitalComment on above:Performed By: #### UAMIC ####[facility] Ubfyzeyuaw[address] [place], [place] [address]Dr. Yilan ChangMUCOUSNONE SEENNormalNONE SEENThe [facility] HospitalComment on above:Performed By: #### UAMIC ####[facility] Yerzmzteoe[address] [place], [place] [address]Dr. Yilan ChangNitrite Ql (U) NegativeNormalNEGATIVEThe [facility] HospitalComment on above:Performed By: #### UAMIC ####[facility] Sqsukukn[address] [place], [place] [address]Dr. Yilan ChangpH (U)6.5 [pH]Normal5-9The [facility] HospitalComment on above:Performed By: #### UAMIC ####[facility] [address]tintwnxlz[address] [place], [place] [address]Dr. Yilan ChangRBCNONE SEENAbnormal0-2The [facility] HospitalComment on above:Performed By: #### UAMIC ####[facility] Jzyrsykccv[address] [place], [place] [address]Dr. Yilan ChangSPEC GRAVITY <=1.065Rftdtlvt8.005-<=1.025The [facility] HospitalComment on above:Performed By: #### UAMIC ####[facility] Tcqxxbnsqi[address] [place], [place] [address]Dr. Yilan ChangUA PROTEINNegativeNormalNEGATIVE/ TRACEThe [facility] Comment on above:Performed By: #### UAMIC ####[facility] Bgqoyngfsk[address] [place], [place] [address]Dr. Yilan ChangUrobilinogen Qn (U)0.2 {Sammy'U}/dLNormal0.2 - 1.0The [facility] HospitalComment on above:Performed By: #### UAMIC ####[facility] [address] [place], [place] [address]Kh. Jose SaenzWBCNONE SEENNormalNONE SEENThe [facility] HospitalComment on above:Performed By: #### UAMIC ####[facility] [address] [place], [place] [address]Iw. Jose SaenzVITAMIN B12on 76-92-8866Sdvlxrsjp (Vitamin B12) [Mass/Vol]405.0 pg/cYYrxlve557.0-986.0The [facility] HospitalComment on above:Performed By: #### VITB12, PSASC #### [facility] [address] [place], [place] [address] Dr. Jose SeanzCovid-19 PCR (CVDTBH)on 84-66-5253OTXZ-CoV-2 (COVID-19) RNA DANIKA+probe Ql (Unsp spec)Not detectedNormalNOT DETECTEDThe [facility] Comment on above:Result Comment: When diagnostic testing is negative, the [...] for this test is supported by the [place] of Health and Human Service's declaration that circumstances exist to justify the emergency use of in vitro diagnostics for the detection and/or diagnosis of the virus that causes COVID-19. This EUA will remain in effect for the duration of the COVID-19 declaration justifying emergency of IVDs, unless it is terminated or revoked by the FDA (after which the test may no longer be used).Performed By: #### CVDTBH ####[facility] [address] [id number] SaenzGROUP A STREP CULTUREon 09-17-2021. pyogenes Ag Ql (Unsp spec)Culture Observations: NEGATIVE FOR GROUP A STREPTOCOCCUS.NormalThe [facility] HospitalComment on above: Performed By: #### GRASTCX, SSCRN #### [facility] [address] [address] [address] Jose SaenzSTREPT SCREENon 60-81-3955GBGCL SCREEN ANegativeNormalNEGATIVEThe [facility] HospitalComkalkaska memorial health center on above:Performed By: #### GRASTCJessica SSCRN #### [facility] [address] [address] [address] Jose Campo AUTO DIFFon 79-31-3196HSZC #0.1 103/ulNormal0.0-0.1The [facility] HospitalComment on above:Performed By: #### CBC ####[facility] Qhneuff[address] [place], [place] [address]DrJordon SaenzBasophils/100 WBC (Bld)1.1 %Normal0.2-2.0The [facility] [facility]iance HospitalComment on above:Performed By: #### CBC ####[facility] Kndufyg[address] [place], [place] [address]DrJordon ChangEO #0.3 103/ulNormal0.0-0.7The [facility] HospitalComment on above:Performed By: #### CBC ####[facility] Mtcuudzmix[address] [place], [place] [address]DrJordon ChangEosinophils/100 WBC (Bld)5.3 %Normal 0.9-7.0The [facility] HospitalComment on above:Performed By: #### CBC ####[facility] Abpukyncfi[address] [place], [place] [address]DrJordon Saenz Erythrocyte distribution width (RBC) [Ratio]13.5 %Xdmlue46.0-15.0The [facility] HospitalComment on above:Performed By: #### CBC ####[facility] Fuvdriyiub2[address] [place], [place] [address]DrJordon SaenzHematocrit (Bld) [Volume fraction]33.9 %Critically low42.0-54.0The [facility] HospitalComment on above:Performed By: #### CBC ####[facility] Jwwbkuyltf[address] [place], [place] [address]DrJordon SaenzHemoglobin (Bld) [Mass/Vol]11.1 g/dL Critically low14.0-18.0The [facility] HospitalComment on above:Performed By: #### CBC ####[facility] Buacujaghq4[address] [place], [place] [address]Dr. Jose DanyIG #0.02 10e3/ulNormal0.00-0.03The [facility] HospitalComment on above: Performed By: #### CBC ####[facility] Lrkubxtzsl6[address] [place], [place] [address]Dr.Jose SaenzIG %0.4 %Normal0.0-0.5The [facility] HospitalComment on above:Performed By: #### CBC ####[facility] Zwcooccvqy45[address] [place], [place] [address]Dr.Jose SaenzLYMPH #1.5 103/ulNormal1.2-3.8The [facility] HospitalComment on above:Performed By: #### CBC ####[facility] Vneaeulfez18[address] [place], [place] [address]Dr. Jose SaenzLymphocytes/100 WBC (Bld)28.5 %Emhjtp57.5-60.0The [facility] Comment on above:Performed By: #### CBC ####[facility] Ffyljkcnfs528[address] [place], [place] [address]Dr.Jose SaenzMANUAL DIFF REQNONormalThe [facility] HospitalComment on above:Performed By: #### CBC ####[facility] Bexkfeuqrv099[address] [place], [place] [address]Dr.Jose SaenzHE[facility]ALL[facility] (RBC) [Entitic mass]29.7 eqMvvbet04.9-34.0The [facility] HospitalComment on above: Performed By: #### CBC ####[facility] Nbskpzzbib[address] [place], [place] [address]Dr.Jose SaenzHC (RBC) [Mass/Vol]32.7 g/dLNormal 29.9-35.2The [facility] HospitalComment on above:Performed By: #### CBC ####[facility] Tybtorjzzi8[address] [place], [place] [address]Dr. Jose SaenzMCV (RBC) [Entitic vol]90.6 bDDfrtmf79.0-94.0The [facility] Comment on above:Performed By: #### CBC ####[facility] [address] [place] [address]Dr.Jose SaenzMONO #0.4 103/ulNormal0.3-0.8 The [facility] HospitalComment on above:Performed By: #### CBC ####[facility] Xvrdgxnljz27[address] [place], [place] [address]Dr.Jose Saenz Monocytes/100 WBC (Bld)7.2 %Normal1.7-12.0The [facility] HospitalComment on above: Performed By: #### CBC ####[facility] Akphkczuta[address] [place], [place] [address]Dr.Jose SaenzNEUT #3.0 103/ulNormal1.4-6.5The [facility] HospitalComment on above:Performed By: #### CBC ####[facility] Gjmqzlupip15[address] [place], [place] [address]Dr.Jose SaenzNeutrophils/100 WBC (Bld)57.5 %Otsagg97.0-75.0The [facility] HospitalComment on above:Performed By: #### CBC ####[facility] Viskpvkoyw04[address] [place], [place] [address]Dr.Jose SaenzPlatelet mean volume (Bld) [Entitic vol]9.8 fLNormal9.5-13.5 The [facility] HospitalComment on above:Performed By: #### CBC ####[facility] Xkeystbpcl30[address] [place], [place] [address]Dr.Jose NqgvmKXU883 103/gtTxxbzv202-350Bub [facility] HospitalComment on above:Performed By: #### CBC ####[facility] Ovyilsurnf99[address] [place], [place] [address]Dr. Jose SaenzRBC3.74 106/ulCritically low4.70-6.10The [facility] HospitalComment on above:Performed By: #### CBC ####[facility] [address] [place] [phone] SaenzWBC5.3 103/ulNormal4.0-11.0The [facility] HospitalComment on above:Performed By: #### CBC ####[facility] Eqxggneshg[address] [place] [phone].Yilan SaenzGLYCOHEMOGLOBIN A1Con [id number] RECOMMENDATIONADA THERAPEUTIC TARGET 6.0 - 7.0 ACTION SUGGESTED > 7.0[facility]ittman HospitalComment on above:Performed By: #### A1C #### [facility] [address] [address] [address] Jose SaenzGlucose [Mass/Vol]120 mg/dLNoUniversity Hospitals Samaritan Medical CenterComment on above:Performed By: #### A1C #### [facility] [address] [address] [address] Jose SaenzHbA1c (Bld) [Mass fraction]5.8 %Normal<=6.0[facility] Comment on above:Performed By: #### A1C #### [facility] [address] [address] [address] Jose SaenzLIPID PROFILEon [id number]-HDL RATIO NORMSLakeHealth TriPoint Medical CenterComment on above:Result Comment: 3.3 - 4.4 LOW RISK 4.4 - 7.1 AVERAGE RISK 7.1 - 11.0 MODERATE RISK >11.0 HIGH RISKPerformed By: #### CMP, TSH, LIPID ####[facility] [address]fztd[address] [place] [address]DrFranklin SaenzCholesterol [Mass/Vol]177 mg/dLNormal<=200[facility] - DublinComment on above:Performed By: #### CMP, TSH, LIPID ####[facility] [address] [place] [phone]. Jose Saenz Cholesterol in HDL [Mass/Vol]63 mg/dLCritically trmf38-47Jsy [facility] Comment on above:Performed By: #### CMP, TSH, LIPID ####[facility] [address]rvpkqpk[address] [place] [address]Dr. Yilan ChangCholesterol in LDL [Mass/Vol]93.8 mg/dLWadsworth-Rittman HospitalComkalkaska memorial health center on above:Performed By: #### CMP, TSH, LIPID ####[facility] [address]vrpuyd[address] [place] [address]Dr. Yilan ChangCholesterol.total/Cholesterol in HDL [Mass ratio]2.8 {ratio}NormalSelect Medical [facility] Hospital [facility] DublinComkalkaska memorial health center on above:Performed By: #### CMP, TSH, LIPID ####[facility] Rhjpzqylet8839[address] [place], [place] [address]Dr. Yilan ChangHDL NORMAL> or = 60 mg/dl - LOW CARDIOVASCULAR RISK <40 mg/dl - HIGH CARDIOVASCULAR RISKWadsworth-Rittman HospitalComkalkaska memorial health center on above:Performed By: #### CMP, TSH, LIPID ####[facility] Aeehfexjed58[address] [place], [place] [address]Dr. Yilan ChangLDL CALC NORMALSEE BELOWNoUniversity Hospitals Samaritan Medical CenterComment on above:Result Comment: <100 mg/dl OPTIMAL 100 - 129 mg/dl NEAR OR ABOVE OPTIMAL 130 - 159 mg/dl BORDERLINE HIGH 160 - 189 mg/dl HIGH >190 mg/dl VERY HIGHPerformed By: #### CMP, TSH, LIPID ####[facility] Sbdrukkjrg50[address] [place], [place] [address]Dr. Yilan ChangTriglyceride [Mass/Vol]101 mg/dLNormal<=150The [facility] HospitalComkalkaska memorial health center on above:Performed By: #### CMP, TSH, LIPID ####[facility] Hhdqiygyma9647[address] [place], [place] [address]Dr. Yilan ChangVLDL CALC20.2 mg/dLWadsworth-Rittman HospitalComkalkaska memorial health center on above:Performed By: #### CMP, TSH, LIPID ####[facility] Rnycrqsmsb5324[address] [place], [place] [address]Dr. Yilan ChangPROF 14(COMP METB)on [id number] [Mass/Vol]3.3 g/dLCritically low3.4-5.0The [facility] HospitalComkalkaska memorial health center on above:Performed By: #### CMP, TSH, LIPID ####[facility] [address]zxtzb[address] [place] [phone]. Yilan ChangAlbumin/Globulin [Mass ratio]1.0 {ratio}NormalThe [facility] HospitalComment on above:Performed By: #### CMP, TSH, LIPID ####[facility] [address] [place] [address]Dr. Yilan ChangALP [Catalytic activity/Vol]80 U/OMqvnun96-706Ost [facility] HospitalComment on above:Performed By: #### CMP, TSH, LIPID ####[facility] [address]irw[address] [place] [address]Dr. Yilan ChangALT [Catalytic activity/Vol]22 U/MIvaadt93-11Qyk [facility] HospitalComment on above: Performed By: #### CMP, TSH, LIPID ####[facility] Apgnqlqqju4734[address] [place], [place] [address]Dr. Yilan ChangAnion gap [Moles/Vol]10.1 mmol/L NormalThe [facility] HospitalComment on above:Performed By: #### CMP, TSH, LIPID ####[facility] Huivhmnwbf5626[address] [place], [place] [address]Dr. Yilan ChangAST [Catalytic activity/Vol]19 U/GCxvkwy79-62Rts [facility] Comment on above:Performed By: #### CMP, TSH, LIPID ####[facility] Smqfwwypbb[address] [place], [place] [address]Dr. Yilan ChangBilirubin [Mass/Vol]0.5 mg/dLNormal0.2-1.3The [facility] HospitalComment on above:Performed By: #### CMP, TSH, LIPID ####[facility] [address]be[address]wrkv[address] [place] [phone]. Yilan ChangCalcium [Mass/Vol]8.3 mg/dLCritically low8.5-10.1The [facility] HospitalComment on above:Performed By: #### CMP, TSH, LIPID ####[facility] [address]kmmz[address] [place] [address]Dr. Yilan ChangChloride [Moles/Vol]104 mmol/LIbtchi25-262Wcj [facility] Hospitalment on above:Performed By: #### CMP, TSH, LIPID ####[facility] [address]vxiowb[address] [place] [address]Dr. Yilan ChangCO2 [Moles/Vol]31.5 mmol/LCritically high22.0-30.0The [facility] HospitalComment on above:Performed By: #### CMP, TSH, LIPID ####[facility] Bvddhaqusp[address] [place], [place] [address]Dr. Yilan ChangCreatinine [Mass/Vol]0.77 mg/dLNormal0.66-1.25The [facility] HospitalComment on above:Performed By: #### CMP, TSH, LIPID ####[facility] Myhtaqoens4[address] [place], [place] [address]Dr. Yilan ChangEGFR-AF ARGENTINE>60Normal>=60The [facility] Comment on above:Performed By: #### CMP, TSH, LIPID ####[facility] Xtsbrkgioj6959[address] [place], [place] [address]Dr. Yilan ChangEGFR-NON AF ARGENTINE>60Normal>=60The [facility] Hospitalment on above:Performed By: #### CMP, TSH, LIPID ####[facility] Bsyedwvoxl87[address] [place], [place] [address]Dr. Silvanalan ChangGlobulin (S) [Mass/Vol]3.2 g/dLNormalThAdena Fayette Medical CenterComkalkaska memorial health center on above:Performed By: #### CMP, TSH, LIPID ####[facility] Mmtqeqxupj13[address] [place], [place] [address]Dr. Yilan Saenz Glucose [Mass/Vol]87 mg/mQQfsqpk77-877Nbq [facility] HospitalComment on above: Performed By: #### CMP, TSH, LIPID ####[facility] Bvavsqlwgl36[address] [place], [place] [address]Dr. Yilan ChangPotassium [Moles/Vol]4.6 mmol/L Normal3.4-5.0The [facility] Hospitalment on above:Performed By: #### CMP, TSH, LIPID ####[facility] [address]vmp[address] [place] [address]Dr. Yiamisha ChangProtein [Mass/Vol]6.5 g/dLNormal6.1-8.2[facility] Comment on above:Performed By: #### CMP, TSH, LIPID ####[facility] [address]zgqvi[address] [place] [id number]. Yilan ChangSodium [Moles/Vol]141 mmol/HCjmhnw943-714Tvl [facility] HospitalComment on above: Performed By: #### CMP, TSH, LIPID ####[facility] [address]ygcigdfgg[address] [place] [address]Dr. Yilan ChangUrea nitrogen [Mass/Vol]9.0 mg/dL Normal7.0-18.0[facility] - DublinComment on above:Performed By: #### CMP, TSH, LIPID ####[facility] [address]zma[address] [place] [address]Dr. Yilan ChangUrea nitrogen/Creatinine [Mass ratio]11.7 mg/mgNoalThAdena Fayette Medical CenterComment on above:Performed By: #### CMP, TSH, LIPID ####[facility] [address]awxj[address] [place] [address]Dr. Jose MorrisHon 60-07-6523VEB7.304 uIU/mLNormal0.470-4.680[facility] Comment on above:Performed By: #### CMP, TSH, LIPID #### [facility] [address] [address] [address] Jose Wallace [facility] Doctors HospitalComment on above: Result Comment: <0.34 UIU/ml HYPERTHYROID 0.34-5.60 UIU/ml EUTHYROID >5.60 UIU/ml HYPOTHYROIDPerformed By: #### CMP, TSH, LIPID #### [facility] [address] [address] [address] Jose Hekc METABOLIC PANELon 45-30-9931Crftnms [Mass/Vol]8.7 mg/dL Normal8.6-10.3The [facility] HospitalComment on above:Performed By: #### [id number] #### [facility] [address] [place] [address], USAChloride [Moles/Vol]104 mmol/BWdgwjh23-693Nsx [facility] HospitalComment on above:Performed By: #### 07530 #### [facility] [address] [place] [address], USACO2 [Moles/Vol]29 mmol/LUcaewl81-72Xoq [facility] HospitalComment on above:Performed By: #### [id number] #### [facility] [address] [place] [address], USACreatinine [Mass/Vol]0.69 mg/dLLow0.70-1.30The [facility] HospitalComment on above:Performed By: #### [id number] #### [facility] [address] [place] [address], USAGFR/1.73 sq M.predicted among blacks MDRD (S/P/Bld) [Vol rate/Area]mL/min/{1.73_m2}Normal>60The [facility] Comment on above:Result Comment: Calculation may not be valid for patients over 70 yearsPerformed By: #### [id number] #### [facility] [address] [place] [address], USAGFR/1.73 sq M.predicted among non-blacks MDRD (S/P/Bld) [Vol rate/Area]mL/min/{1.73_m2}Normal>60The [facility] Comment on above:Result Comment: Calculation may not be valid for patients over 70 yearsPerformed By: #### [id number] #### [facility] [address] [place] [place] [address], USAGlucose [Mass/Vol]97 mg/dPVainoc37-213Wuv [facility] HospitalComment on above:Performed By: #### [id number] #### [facility] [address] [place] [address], USAPotassium [Moles/Vol]4.0 mmol/LNormal3.5-5.1The [facility] HospitalComment on above:Performed By: #### 33827 #### [facility] [address] [facility] [place] [address], USASodium [Moles/Vol]139 mmol/FIxiuru346-546Cck [facility] HospitalComment on above:Performed By: #### [id number] #### [facility] [address] [place] [address], USAUrea nitrogen [Mass/Vol]10 mg/dLNormal7-25The [facility] HospitalComment on above:Performed By: #### 93558 #### [facility] [address] [facility] [place] [address], USACBC COMPLETE BLOOD COUNTon 59-93-6871Jvarschmtvu distribution width (RBC) [Ratio]13.2 %Mkqput53.5-15.0The [facility] HospitalComment on above:Performed By: #### [id number] #### [facility] [address] [facility] [place] [address], USAHematocrit (Bld) [Volume fraction]34.6 %Low39.0-50.0The [facility] HospitalComment on above:Performed By: #### 91208 #### [facility] [address] [facility] [place] [address], USAHemoglobin (Bld) [Mass/Vol]11.4 g/dLLow13.0-17.0The [facility] HospitalComment on above:Performed By: #### [id number] #### [facility] [address] [facility] [place] [address], USAMCH (RBC) [Entitic mass]29.8 tiIkggsl35.0-33.0The [facility] HospitalComment on above:Performed By: #### [id number] #### [facility] [address] [facility] [place] [address], [facility]OB[facility]THC (RBC) [Mass/Vol]32.9 g/pONndggq26.0-35.0The [facility] HospitalComment on above:Performed By: #### [id number] #### [facility] [address] [place] [address], RUSTMCV (RBC) [Entitic vol]90.3 xEKkwrqg35.0-98.0The [facility] HospitalComment on above:Performed By: #### [id number] #### [facility] [address] [place] [address], RUSTNucleated RBC/100 WBC (Bld) [Ratio]0 %Normal0-0The [facility] HospitalComment on above:Performed By: #### [id number] #### [facility] [address] [place] [address], RUSTPLAT IVZ594 10*3/cZInlbox480-692Euo [facility] HospitalComment on above:Performed By: #### [id number] #### [facility] [address] [place] [address], RUSTRBC (Bld) [#/Vol]3.83 10*6/uLLow4.20-5.70The [facility] HospitalComment on above:Performed By: #### [id number] #### [facility] [address] [place] [address], RUSTWBC (Bld) [#/Vol]6.55 10*3/uLNormal4.00-10.60The [facility] HospitalComment on above:Performed By: #### [id number] #### [facility] [address] [facility] [place] [address], RUSTTYPE AND CROSSMATCHon 29-30-9929RXN INTERPRETATIONANormal The [facility] HospitalComment on above:Performed By: #### [id number] #### [facility] [address] [facility] [place] [address], RUSTRH INTERPRETATIONPosTogus VA Medical CenterComment on above:Performed By: #### [id number] #### [facility] [address] [facility] [place] [address], RUST Vital Signs Date TimeVital SignValuePerforming XabssrapdQteucwvg61-39-8370 13:05-0400Body mass index (BMI) [Ratio]22.19 kg/m2Lisa Aichholz CRYPTOGRAPHIC VULNERABILITY ANALYST Work Phone: [facility] CenterOjsudfnnhi84-75-5974 13:05-0400Body temperature 97.5 [degF]Luciana Aichholz CRYPTOGRAPHIC VULNERABILITY ANALYST Work Phone: [phone] [place], [place] [address]Zlzpunkbzi50-95-4185 13:05-0400Body yagebs93.21 kgLisa Aichholz CRYPTOGRAPHIC VULNERABILITY ANALYST Work Phone: [facility] CenterLaxlfnczsl91-09-5674 13:05-0400Diastolic blood lsiwowqw49 mm[Hg]Luciana Josehholz CRYPTOGRAPHIC VULNERABILITY ANALYST Work Phone: [facility] CenterZmkimabuwf08-81-5249 13:05-0400Heart rate78 /min Luciana Aichholz CRYPTOGRAPHIC VULNERABILITY ANALYST Work Phone: [facility] CenterLmagmjiwqa83-99-5845 13:05-0400Respiratory rate18 /minLisa Josehholz CRYPTOGRAPHIC VULNERABILITY ANALYST Work Phone: [facility] CenterJxinvopiho31-16-7355 13:05-5172RjG1% (BldA) [Mass fraction]97 %Luciana Josehholz CRYPTOGRAPHIC VULNERABILITY ANALYST Work Phone: [facility] CenterVqtnwaltvn49-89-4564 13:05-0400Systolic blood mm[Hg]Luciana Aichholz CRYPTOGRAPHIC VULNERABILITY ANALYST Work Phone: [facility] CenterRwhdtsqrvj70-98-5257 13:28-0400Body mass index (BMI) [Ratio]21.94 kg/m2Lisa Aichholz CRYPTOGRAPHIC VULNERABILITY ANALYST Work Phone: [facility] CenterSjhkwywzrg46-62-7669 13:28-0400Body temperature 98.1 [degF]Luciana Aichholz CRYPTOGRAPHIC VULNERABILITY ANALYST Work Phone: [facility] CenterRzhhkpsiyk91-17-3095 13:28-0400Body hhejjg43.39 kgLisa Carlosholz CRYPTOGRAPHIC VULNERABILITY ANALYST Work Phone: [facility] CenterYnpvontaek72-48-1406 13:28-0400Diastolic blood kovycfyk89 mm[Hg]Luciana Josehholz CRYPTOGRAPHIC VULNERABILITY ANALYST Work Phone: [facility] CenterIvsvibisrm44-07-7012 13:28-0400Heart rate87 /min Luciana Carlosholz CRYPTOGRAPHIC VULNERABILITY ANALYST Work Phone: [facility] CenterSlwczxcxuy18-95-6149 13:28-0400Respiratory rate19 /minLisa Carlosholz CRYPTOGRAPHIC VULNERABILITY ANALYST Work Phone: [facility] CenterDvpfhmocfr42-86-7932 13:28-2055EjP2% (BldA) [Mass fraction]95 %Luciana Josehholz CRYPTOGRAPHIC VULNERABILITY ANALYST Work Phone: [facility] CenterDkdroupsqy12-60-8944 13:28-0400Systolic blood mm[Hg]Luciana Carlosholz CRYPTOGRAPHIC VULNERABILITY ANALYST Work Phone: [facility] CenterLhdekldvdr95-23-8253 10:57-0500Body mass index (BMI) [Ratio]21.94 kg/m2Lisa Carlosholz CRYPTOGRAPHIC VULNERABILITY ANALYST Work Phone: [facility] CenterNbzcvzkupu68-15-9663 10:57-0500Body temperature 97.59 [degF]Luciana Carlosholz CRYPTOGRAPHIC VULNERABILITY ANALYST Work Phone: [phone] [place], [place] [address]Xaklhjlyck94-19-2012 10:57-0500Body fbigql43.39 kgLisa Carlosholz CRYPTOGRAPHIC VULNERABILITY ANALYST Work Phone: [facility] CenterTdyixohmlj64-06-2695 10:57-0500Diastolic blood akygvhtn83 mm[Hg]Luciana Josehholz CRYPTOGRAPHIC VULNERABILITY ANALYST Work Phone: [facility] CenterHgvlgfxbcg55-04-8184 10:57-0500Heart rate65 /min Luciana Aichholz CRYPTOGRAPHIC VULNERABILITY ANALYST Work Phone: [phone] [place], [place] [address]Gygmxckfay68-80-8465 10:57-0500Respiratory rate18 /minLisa Elderz CRYPTOGRAPHIC VULNERABILITY ANALYST Work Phone: [facility] CenterKacwunvnxv86-44-9055 10:57-9860OdS8% (BldA) [Mass fraction]98 %Luciana Nicolas CRYPTOGRAPHIC VULNERABILITY ANALYST Work Phone: [facility] CenterPxgejyaonj59-48-3487 10:57-0500Systolic blood zuqfvanl233 mm[Hg]Luciana Elderz CRYPTOGRAPHIC VULNERABILITY ANALYST Work Phone: [facility] CenterYtbrkjtosk79-08-4870 13:26-0500Body wpjzpa376.9 cmLisa Elderz CRYPTOGRAPHIC VULNERABILITY ANALYST Work Phone: [facility] CenterVixcxpfkgz73-14-6586 13:26-0500Body mass index (BMI) [Ratio]22.22 kg/m2Katisa Carlosholz CRYPTOGRAPHIC VULNERABILITY ANALYST Work Phone: [facility] CenterMawyrnbpwe11-24-7184 13:26-0500Body temperature 98.1 [degF]Luciana Friedmanz CRYPTOGRAPHIC VULNERABILITY ANALYST Work Phone: [facility] CenterHwgytydhdk28-05-6412 13:26-0500Body .3 kg Luciana Elderz CRYPTOGRAPHIC VULNERABILITY ANALYST Work Phone: [facility] CenterTrwtoevybo67-40-2714 13:26-0500Diastolic blood ufnowwkr55 mm[Hg]Luciana Elderz CRYPTOGRAPHIC VULNERABILITY ANALYST Work Phone: [facility] CenterVogcrsghju99-49-3330 13:26-0500Heart rate71 /min Luciana Elderz CRYPTOGRAPHIC VULNERABILITY ANALYST Work Phone: [facility] CenterUgdktmhnwc38-99-3096 13:26-0500Respiratory rate18 /minLisa Carlosholz CRYPTOGRAPHIC VULNERABILITY ANALYST Work Phone: [facility] CenterNtwlmsqoip44-60-2524 13:26-1223BdG8% (BldA) [Mass fraction]99 %Luciana Elderz CRYPTOGRAPHIC VULNERABILITY ANALYST Work Phone: [facility] CenterMwrmqlpdrs55-68-8672 13:26-0500Systolic blood saacwveg695 mm[Hg]Luciana Carlosholz CRYPTOGRAPHIC VULNERABILITY ANALYST Work Phone: [facility] CenterAjlevefiqw79-12-0301 09:09-0400Blood Pressure LocationPatrick ZHANG [facility]08-18-2023 09:09-0400Diastolic blood fsgwucti44 mm[Hg]Joy ZHANG [facility]08-18-2023 09:09-0400Heart rate74 /minPatrick ZHANG [facility] [place] [address]-18-2023 09:09-0400Systolic blood zkwhrjke175 mm[Hg]Joy ZHANG [facility]02-17-2023 10:56-0500Blood Pressure LocationPaBootleg Marketk ZHANG [facility]02-17-2023 10:56-0500Diastolic blood brdxeuhr01 mm[Hg]Joy ZHANG [facility]02-17-2023 10:56-0500Heart rate65 /minPatrick ZHANG [facility]02-17-2023 10:56-0500Respiratory rate16 /minPatrick ZHANG [facility]02-17-2023 10:56-0500Systolic blood axaqhxjn399 mm[Hg]Joy ZHANG [facility]08-29-2022 11:49-0400Blood Pressure LocationPatrick ZHANG [facility]08-29-2022 11:49-0400Diastolic blood mm[Hg]Joy ZHANG [facility]08-29-2022 11:49-0400Heart rate75 /minJoy ZHANG [facility]08-29-2022 11:49-0400Respiratory rate16 /minPatrick MILKA [facility]08-29-2022 11:49-0400Systolic blood [id number] mm[Hg]Joy MILKA [facility] Encounters Encounter DateEncounter [facility] ProviderFacilityStart: 65-61-3547qjfpwrqybl Joy ZHANGFacility:EU BellevueStart: 12-02-2024 End: 04-19-4491VlrnlqItsp Aichholz CRYPTOGRAPHIC VULNERABILITY ANALYST Work Phone: noms CWM FMComment on above:Iron deficiency anemia, unspecified iron deficiency anemia typeStart: 11-28-2024 End: 24-75-4633Bipmmzmpr Result EncounterLisa Fidencio CRYPTOGRAPHIC VULNERABILITY ANALYST Work Phone: noms External Department UnsolicitedStart: 11-28-2024 End: 57-24-2751Ltyhdwwzy Result EncounterLisa Fidencio CRYPTOGRAPHIC VULNERABILITY ANALYST Work Phone: noms External Department UnsolicitedStart: 11-25-2024 End: 96-21-3450nrqcevqurkXKWF ELDERZNot AvailableStart: 11-25-2024 End: 97-85-6158Tvwqdy outpatient visit 25 minutesLisa Nicolas CRYPTOGRAPHIC VULNERABILITY ANALYST Work Phone: NOFO CWM FMComment on above: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 (HCC) (Primary Dx); Primary hypertension ; 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); Phantom limb syndrome with pain (HCC); Iron deficiency anemia, unspecified iron deficiency anemia type; GastroenteritisStart: 11-24-2024 End: 88-78-2199iqgidgekagJjavccw R WATERSFacility:EU BellevueStart: 11-24-2024 End: 30-05-6314Dkgtwgh encounter procedureJoy ZHANG [facility] start: 11-04-2024 End: 49-57-7987MrnwmjQkhd Aichholz CRYPTOGRAPHIC VULNERABILITY ANALYST Work Phone: NOMS CWM FMComment on above:Iron deficiency anemia, unspecified iron deficiency anemia type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); Phantom limb syndrome with pain (HCC)Start: 09-22-2024 End: 58-25-9849EmsvbpLxsg Aichholz CRYPTOGRAPHIC VULNERABILITY ANALYST Work Phone: NOMS CWM FMComment on above:Phantom painStart: 08-26-2024 End: 56-11-5038Wtitwbczb encounterLisa Fidencio CRYPTOGRAPHIC VULNERABILITY ANALYST Work Phone: NOMS CWM FMStart: 08-26-2024 End: 93-72-9353Yhrxdl outpatient visit 25 minutesLisa Nicolas CRYPTOGRAPHIC VULNERABILITY ANALYST Work Phone: NOMS CWM FMComment on above: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) (Primary Dx); Phantom limb syndrome with pain (CMS/HCC); Primary hypertension (CMS/HCC); 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 (CMS/HCC); Elevated PSA, between 10 and less than 20 ng/mlStart: 08-26-2024 End: 18-08-5566gvmgrbttazGPKY AICHHOLZNot AvailableStart: 08-18-2024 End: 92-64-4941bgwgpalqvoCjdpoui R WATERSFacility:FTMCStart: 08-18-2024 End: 55-21-6541Miq Drop offJoy ZHANG [facility] Start: 08-18-2024 End: 27-08-1699fsbqlvwlxhJwkpstv R WATERSFacility:EU BellevueStart: 08-11-2024 End: 27-53-9180VzdwwgJqlo Aichholz CRYPTOGRAPHIC VULNERABILITY ANALYST Work Phone: NOAG CWM FMComment on above:Phantom painStart: 06-25-2024 End: 94-06-2434EacppqXsmv Aichholz CRYPTOGRAPHIC VULNERABILITY ANALYST Work Phone: NOSE CWM FMComment on above:Phantom painStart: 05-30-2024 End: 36-36-4519WcbmsnEgye Aichholz CRYPTOGRAPHIC VULNERABILITY ANALYST Work Phone: NOHX CWM FMComment on above:Vitamin D deficiency (Primary Dx); Iron deficiency anemia, unspecified iron deficiency anemia typeStart: 05-29-2024 End: 10-79-6929UqtlggBlnx Aichholz CRYPTOGRAPHIC VULNERABILITY ANALYST Work Phone: NOMU CWM FMStart: 05-28-2024 End: 95-33-4297Jociwi flowsheetLisa Aichholz CRYPTOGRAPHIC VULNERABILITY ANALYST Work Phone: NOHM CWM FMStart: 05-28-2024 End: 66-77-0177Ycelqc flowsheetLisa Aichholz CRYPTOGRAPHIC VULNERABILITY ANALYST Work Phone: NOSI CWM FMStart: 05-28-2024 End: 27-91-7156Ahwcxpzqr Result EncounterLisa Josehholz CRYPTOGRAPHIC VULNERABILITY ANALYST Work Phone: NOAE External Department UnsolicitedStart: 05-28-2024 End: 38-10-3113Frgwebs encounter procedureLisa Aichholz CRYPTOGRAPHIC VULNERABILITY ANALYST Work Phone: NOLX CWM FMComment on above:Encounter for subsequent annual wellness visit (AWV) in Medicare patient (Primary Dx); Pulmonary hypertension, unspecified (CMS/HCC); Crohn's disease of small intestine without complications (CMS/HCC); Phantom limb syndrome with pain (CMS/HCC); Crohn's disease of large intestine without complications (CMS/HCC); 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 (CMS/HCC); 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); Hx of detention use of blood thinners; Benign prostatic hyperplasia with lower urinary tract symptoms, symptom details unspecified; Elevated PSA, between 10 and less than 20 ng/ml; Vitamin B12 deficiency; Vitamin D deficiency; Primary hypertension (CMS/HCC); Phantom painStart: 05-28-2024 End: 46-51-3215mfpbvnytcpWMYP JOSEHHOLZNot AvailableStart: 05-13-2024 End: 98-35-3415KkokltWqoy Aichholz CRYPTOGRAPHIC VULNERABILITY ANALYST Work Phone: NOMS CWM FMComment on above:Phantom pain (Primary Dx) Start: 04-01-2024 End: 51-99-6705Wpsrcv flowsheetLuciana Nicolas CRYPTOGRAPHIC VULNERABILITY ANALYST Work Phone: NOMS CWM FMStart: 04-01-2024 End: 61-88-6143Cmujiv flowsheetLuciana Nicolas CRYPTOGRAPHIC VULNERABILITY ANALYST Work Phone: NOMS CWM FMStart: 04-01-2024 End: 60-57-2705Pkcgks outpatient visit [facility] CRYPTOGRAPHIC VULNERABILITY ANALYST Work Phone: NOMS CWM FMComment on above:Phantom pain (Primary Dx); Pulmonary hypertension, unspecified (CMS/HCC); Aneurysm of the ascending aorta, without rupture (CMS/HCC); Primary hypertension (CMS/HCC); 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 (CMS/HCC); 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); Elevated PSA, between 10 and less than 20 ng/mlStart: 04-01-2024 End: 95-47-4974wmzvoqhowrNDYS JOSEHHOLZNot AvailableStart: 03-31-2024 End: 28-62-8379murhxjkvsvJDSRDDMercy [facility] Start: 03-17-2024 End: 72-65-0061BezdghTkou Aichholz CRYPTOGRAPHIC VULNERABILITY ANALYST Work Phone: NOMS CWM FMComment on above:Phantom painStart: 02-27-2024 End: 76-97-6061Ntergsvgr Result EncounterGeneric External Data ProviderNOMS External Department UnsolicitedStart: 02-27-2024 End: 61-35-3133Qnkxsgmro Result EncounterGeneric External Data ProviderNOMS External Department UnsolicitedStart: 01-29-2024 End: 72-02-5924ZcioorBfyb Carlosholz CRYPTOGRAPHIC VULNERABILITY ANALYST Work Phone: NOJI CWM FMComment on above:Phantom pain (Primary Dx) Start: 12-18-2023 End: 47-44-3743TyyueiXdqy Naderer MD Work Phone: NOBV CWM FMComment on above:Phantom painStart: 08-17-2023 End: 40-21-5489Sxxycja encounter procedurePavazquez ZHANG [facility] start: 69-96-1750Rvupdqrls Result EncounterLisa Aichholz CRYPTOGRAPHIC VULNERABILITY ANALYST Work Phone: noms External Department UnsolicitedStart: 05-29-2023 Clinisync Result EncounterLisa Aichholz CRYPTOGRAPHIC VULNERABILITY ANALYST Work Phone: noms External Department UnsolicitedStart: 2023 Rickey Galo MD Work Phone: NOMS CWM IMStart: 32-34-2837Ihwwpaaminta Galo MD Work Phone: NOMS CWM IMStart: 2023 End: 17-25-7936Gbvzhwg encounter procedureLisa Aichholz CRYPTOGRAPHIC VULNERABILITY ANALYST Work Phone: NODA CWM FMComment on above:Encounter for subsequent annual wellness visit (AWV) in Medicare patient (Primary Dx); Phantom pain (CMS/HCC); Iron deficiency anemia, unspecified iron deficiency anemia type; Primary hypertension (CMS/HCC); 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 (CMS/HCC); Benign prostatic hyperplasia with lower urinary tract symptoms, symptom details unspecified; Vitamin D deficiency; Vitamin B12 deficiencyStart: 12-01-2022 End: 22-43-7003Cearveg encounter procedureJoy Gutierrez MILKA [facility] start: 06-21-2022 End: 47-76-6757zoyjivdiejDZ DANGELO UPKIERANacility:M5Rwves: 06-02-2022 End: 58-93-1508Lwwyvhp encounter procedureJoy Gutierrez MILKA [facility] start: 05-16-2022 End: 10-38-4917Pvscscz encounter procedureJoy Gutierrez MILKA [facility] Start: 03-22-2022 End: 09-24-2608kyimanjhvoYaqxxcs L ValoneFacility:[facility] Hospitaltart: 02-13-2022 End: 15-87-5791ugrarpupudHQ JOY ZHANG .Facility:O1Ckmsd: 12-12-2021 End: 54-42-2395Guygajo encounter procedureJoy Gutierrez MILKA [facility] start: 78-10-1145pecxxkomrhGXG LUCIANA AICHHOLZFacility:H1 Start: 10-13-2021 End: 77-20-8977xkazesnmlyTYT LUCIANA AICHHOLZFacility:Y8Gwauw: 09-17-2021 End: 54-12-4589dfgglfwijpOCP LUCIANA AICHHOLZFacility:F0Eamia: 09-16-2021 End: 28-40-0196Hrqzjwg encounter procedureJoy Gutierrez MILKA [facility] start: 07-26-2021 End: 39-83-2037jwuyxgklzaJTAPISF TUCKERFacility:L5Jdjmm: 32-06-7154ibeeslbqsl MONSTER TUCKERFacility:L1Fbgdu: 03-08-2021 End: 54-09-3437wzuftyngfcLVJBIRY ABD ALAMIRFacility:[facility] Procedures DateProcedureProcedure DetailPerforming ClinicianStart: 69-21-6010PPS CBC WITH AUTO DIFFLisa Aichholz CRYPTOGRAPHIC VULNERABILITY ANALYST Work Phone: Start: 66-40-8377JTO CBC WITH AUTO DIFFLisa Aichholz CRYPTOGRAPHIC VULNERABILITY ANALYST Work Phone: Start: 73-46-3261KS ECHO DOPPLER COMPLETEGeneric External Data ProviderStart: 41-74-1240XYF UA (CLEAN/CATCH) MICROSCOPIC IF INDICATELisa Aichholz CRYPTOGRAPHIC VULNERABILITY ANALYST Work Phone: Start: 18-53-1594Txbbqecudws needle biopsy of prostate Joy MILKA Start: 26-18-3277CZT screeningDR DANGELO JAEGER Comment on above:Performed By: #### PSAD #### [facility] [address] [address] [address] Jose SaenzStart: 28-90-5021CBI screeningDR DANGELO JAEGERComment on above:Performed By: #### VITB12, PSASC #### [facility] [address] [address] [address] Jose SaenzStart: 95-82-0342Odqtsiyb screenMOSHRIK ABD ALAMIRComment on above:Performed By: #### [id number] #### [address] [address], USAStart: 02-71-3521Nxiqaizdvtiii prostatectomyPatrick ZHANG Start: 91-65-1856Noycxnchze studiesPatrick ZHANG Start: 36-22-2554Llryyayuirnij prostatectomyPatrick ZHANG Start: 81-67-6561Hdyoqfsgpumee prostatectomyPatrick ZHANG amputation of lower limbPatrick ZHANG ColonoscopyPatrick ZHANG Hernia repairPatrick ZHANG Unlisted procedure femur/kneePatrick ZHANG Plan of Treatment DateCare ActivityDetailAuthorStart: 06-01-2025 End: 47-24-0040Mkzpvfd encounter mdnqebxoa33/16/2026 11:00 AM EST [facility] [address] [place] [address] Luciana Nicolas, BETSY [address] [place] [address] [facility] FMStart: 02-12-2026Medicare Annual Wellness (AWV) Medicare Annual Wellness (AWV)[facility]OMS HealthcareStart: 02-25-2025 End: 94-62-0607Lurmgkk encounter tiicapbll91/12/2025 1:00 PM EST Office Visit [facility] [address] [place] [address] Luciana Nicolas, CRYPTOGRAPHIC VULNERABILITY ANALYST [address] [place] [address] [facility] FMStart: 68-99-8486Spcslmucs vaccinationInfluenza Vaccine (#1)NOMS HealthcareStart: 11-25-2024 End: 79-17-0300UGN W Auto Differential panel - BloodCBC and differential Lab Routine Iron deficiency anemia, unspecified iron deficiency anemia type Exp ected: 11/25/2024 (Approximate), Expires: 11/25/2025[facility] Work Phone: Comment on above:Expected: 11/25/2024 (Approximate), Expires: 11/25/2025Start: 11-25-2024 End: 61-86-9027Rqnksucb [Mass/volume] in Serum or PlasmaFerritin Lab Routine Iron deficiency anemia, unspecified iron deficiency anemia type Expected: 11/25 (Approximate), Expires: 11/25/2025[facility] HealthcareComment on above: Expected: 11/25/2024 (Approximate), Expires: 11/25/2025Start: 11-25-2024 End: 00-64-9736Itje + transferrin + TIBCIron + transferrin + TIBC Lab Routine Iron deficiency anemia, unspecified iron deficiency anemia type Expected: 11/25/2024 (Approximate), Expires: 11/25/2025[facility] HealthcareComment on above: Expected: 11/25/2024 (Approximate), Expires: 11/25/2025Start: 11-25-2024 End: 70-75-2468Skdqupb encounter sgabonpgi85/12/2025 1:00 PM EDT Office Visit [facility] [address] [place] [address] Luciana Nicolas, CRYPTOGRAPHIC VULNERABILITY ANALYST [address] [place] [address] [facility] FMStart: 08-26-2024 End: 44-31-0053Loqezmd encounter ojkdwdpfg11/13/2025 1:20 PM EDT Office Visit [facility] [address] [place] [address] Luciana Nicolas, CRYPTOGRAPHIC VULNERABILITY ANALYST [address] [place] [address] [facility] FMStart: 05-28-2024 End: 187793-kwbvyigkdajgmg D3 [Mass/volume] in Serum or PlasmaVitamin D 25 hydroxy Lab Routine Vitamin D deficiency Expected: 05/28/2024 (Approximate), Expires: 05/28/2025[facility] HealthcareComment on above:Expected: 05/28/2024 (Approximate), Expires: 05/28/2025Start: 05-28-2024 End: 13-55-3972FXK W Auto Differential panel - BloodCBC and differential Lab Routine 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 (CMS/HCC) 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 Vitamin B12 deficiency Expected: 05/28/2024 (Approximate), Expires: 05/28/2025[facility] Work Phone: Comment on above:Expected: 05/28/2024 (Approximate), Expires: 05/28/2025Start: 05-28-2024 End: 06-99-4248Tyigktemz (Vitamin B12) [Mass/volume] in Serum or PlasmaVitamin B12 Lab Routine Vitamin B12 deficiency Expected: 05/28/2024 (Approximate), Expires: 05/28/2025[facility] HealthcareComment on above:Expected: 05/28/2024 (Approximate), Expires: 05/28/2025Start: 05-28-2024 End: 48-54-8027Nyvuftulawexi metabolic 2000 panel - Serum or PlasmaComprehensive metabolic panel Lab Routine Vitamin D deficiency Primary hypertension (CMS/HCC) Expected: 05/28/2024 (Approximate), Expires: 05/28/2025[facility] HealthcareComment on above:Expected: 05/28/2024 (Approximate), Expires: 05/28/2025Start: 05-28-2024 End: 14-82-7067Osxcengpccpp/Creatinine panel in random UrineMicroalbumin / creatinine, urine ratio Lab Routine Primary hypertension (CMS/HCC) Expected: 05/28/2024 (Approximate), Expires: 05/28/2025[facility] HealthcareComment on above: Expected: 05/28/2024 (Approximate), Expires: 05/28/2025Start: 05-28-2024 End: 04-35-5093Wpaokmuk specific Ag [Mass/volume] in Serum or PlasmaPSA Lab Routine Benign prostatic hyperplasia with lower urinary tract symptoms, symptom details unspecified Elevated PSA, between 10 and less than 20 ng/ml Expected: 05/28/2024 (Approximate), Expires: 05/28/2025[facility] HealthcareComment on above: Expected: 05/28/2024 (Approximate), Expires: 05/28/2025Start: 05-28-2024 End: 28-29-7869Ukytgrkncu complete panel - UrineUrinalysis with reflex microscopic (clean catch) Lab Routine Primary hypertension (CMS/HCC) Expected: 05/28/2024 (Approximate), Expires: 05/28/2025[facility] HealthcareComment on above: Expected: 05/28/2024 (Approximate), Expires: 05/28/2025Start: 05-28-2024 End: 99-73-1391Wrniztw encounter procedureNOTULSA ER & [facility] [place] FMComment on above: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) (Primary Dx); Pulmonary hypertension, unspecified (CMS/HCC); Crohn's disease of small intestine without complications (CMS/HCC); Phantom limb syndrome with pain (CMS/HCC); Crohn's disease of large intestine without complications (CMS/HCC); 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 (CMS/HCC); 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; Encounter for subsequent annual wellness visit (AWV) in Medicare patient; Benign prostatic hyperplasia with lower urinary tract symptoms, symptom details unspecified; Elevated PSA, between 10 and less than 20 ng/ml; Vitamin B12 deficiency; Vitamin D deficiency; Primary hypertension (CMS/HCC)Start: 02-07-2025Medicare Annual Wellness (AWV) Medicare Annual Wellness (AWV)[facility] HealthcareStart: 04-01-2024 End: 31-15-3756Ibrctfc encounter irtrdtmye94/17/2024 1:20 PM EST Office Visit [facility] [address] [place] [address] Luciana Nicolas NP [address] [place] [address] Phantom pain (Primary Dx); Pulmonary hypertension, unspecified (CMS/HCC); Aneurysm of the ascending aorta, without rupture (CMS/HCC); Primary hypertension (CMS/HCC); 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 (C MS/HCC); 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)[facility] FMComment on above:Phantom pain (Primary Dx); Pulmonary hypertension, unspecified (CMS/HCC); Aneurysm of the ascending aorta, without rupture (CMS/HCC); Primary hypertension (CMS/HCC); 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 (CMS/HCC); 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) Start: 02-21-2024 End: 59-65-7565Cnabhsc encounter negasvuce05/07/2024 1:00 PM EST Office Visit [facility] [address] [place] [address] Luciana Nicolas, BETSY [address] [place] [address] [facility] [place] FMStart: 02-18-2024 End: 83-03-0502Omjemqc encounter atmnflukk26/04/2024 1:20 PM EST Office Visit [facility] [address] [place] [address] Luciana Nicolas, BETSY [address] [place] [address] [facility] FMStart: 63-19-0639Krhjxlguv vaccinationInfluenza Vaccine (#1)[facility] HealthcareStart: 08-20-2023 End: 96-38-3165Lpssbmo encounter czzwajueg32/06/2024 1:20 PM EDT Office Visit [facility] [address] [place] [address] Luciana Nicolas, CRYPTOGRAPHIC VULNERABILITY ANALYST [address] [place] [address] [facility] FMStart: 2023 End: 190279-aqepqeauezhdqm D3 [Mass/volume] in Serum or PlasmaVitamin D 25 hydroxy Lab Routine Vitamin D deficiency Expected: 2023 (Approximate), Expires: 2024NOMS HealthcareComment on above:Expected: 2023 (Approximate), Expires: 2024Start: 2023 End: 26-96-4603ZVO W Auto Differential panel - BloodCBC and differential Lab Routine Iron deficiency anemia, unspecified iron deficiency anemia type Par oxysmal atrial fibrillation (CMS/HCC) Vitamin B12 deficiency Expected: 2023 (Approximate), Expires: 2024[facility] Work Phone: Comment on above:Expected: 2023 (Approximate), Expires: 2024Start: 2023 End: 39-95-6254Ukkukoeuj (Vitamin B12) [Mass/volume] in Serum or PlasmaVitamin B12 Lab Routine Vitamin B12 deficiency Expected: 2023 (Approximate), Expires: 2024[facility] HealthcareComment on above:Expected: 2023 (Approximate), Expires: 2024Start: 2023 End: 35-97-7742Nvatabpwwztej metabolic 2000 panel - Serum or PlasmaComprehensive metabolic panel Lab Routine Iron deficiency anemia, unspecified iron deficiency anemia type Primary hypertension (CMS/HCC) Benign prostatic hyperplasia with lower urinary tract symptoms, symptom details unspecified Vitamin D deficiency Expected: 2023 (Approximate), Expires: 2024[facility] HealthcareComment on above:Expected: 2023 (Approximate), Expires: 2024Start: 2023 End: 30-34-0004Qprf and Iron binding capacity panel - Serum or PlasmaIron level Lab Routine Iron deficiency anemia, unspecified iron deficiency anemia type Expected: 2023 (Approximate), Expires: 2024[facility] HealthcareComment on above:Expected: 2023 (Approximate), Expires: 2024Start: 2023 End: 18-48-7134Ajteq 1996 panel - Serum or PlasmaLipid panel Lab Routine Primary hypertension (CMS/HCC) Expected: 2023 (Approximate), Expires:2024 NOMS HealthcareComment on above:Expected: 2023 (Approximate), Expires: 2024Start: 2023 End: 29-21-6740Iwxgnenttqtf/Creatinine panel in random UrineMicroalbumin / creatinine, urine ratio Lab Routine Primary hypertension ([facility]) Expected: 2023 (Approximate), Expires: 2024[facility] HealthcareComment on above: Expected: 2023 (Approximate), Expires: 2024Start: 2023 End: 19-78-9801Mgtlnqya specific Ag [Mass/volume] in Serum or PlasmaPSA Lab Routine Benign prostatic hyperplasia with lower urinary tract symptoms, symptom details unspecified Expected: 2023 (Approximate), Expires: 2024[facility] HealthcareComment on above:Expected: 2023 (Approximate), Expires: 2024Start: 2023 End: 72-43-4237Fywomcbfgf complete panel - UrineUrinalysis with reflex microscopic (clean catch) Lab Routine Primary hypertension ([facility]) Expected: 2023 (Approximate), Expires: 2024[facility] HealthcareComment on above: Expected: 2023 (Approximate), Expires: 2024Start: 2023 End: 84-31-7110Yyfuerr encounter erzzujlqv63/07/2024 10:00 AM EST [facility] [place] [address] [place] [address] Shaikh Galo MD [address] [place] [address] [facility]rivedSH[facility] IMComment on above:ArrivedStart: 12-15-2022 Influenza vaccinationInfluenza Vaccine (#1)[facility] HealthcareStart: 01-26-2021 Pneumococcal Vaccine: 65+ Years (2 - PCV)Pneumococcal Vaccine: 65+ Years (2 - PCV)NOM HealthcareStart: 02-07-1937Medicare Annual Wellness (AWV)Medicare Annual Wellness (AWV)[facility] Immunizations Immunization DateImmunizationNotesCare ZlzildwzWkjubsbr16-30-6464wcecrrulc virus vaccine, unspecified formulationOrHarQen [facility]10-19-2024influenza, high dose seasonal, preservative-freeLisa Aichholz CRYPTOGRAPHIC VULNERABILITY ANALYST Work Phone: [facility] CenterNxnsktowgb95-36-0282ZGUS-BFY-3 (COVID-19) vaccine, mRNA, spike protein, LNP, PF, megha-sucrose, 30 mcg/0.3 mLLisa Carlosholz CRYPTOGRAPHIC VULNERABILITY ANALYST Work Phone: [facility] CenterJgimsqsjsv30-36-0263uaoqfapjg virus vaccine, unspecified formulationOrHarQen [facility]10-03-2023Influenza, High-dose Seasonal, Quadrivalent, Preservative Free Luciana Fidencio CRYPTOGRAPHIC VULNERABILITY ANALYST Work Phone: [facility] CenterIwpdnqgwoe65-41-1084Pxirfxnbb, Seasonal, Quadrivalent, AdjuvantedMarc Sherri OROZCO Work Phone: noFreeman Heart InstituteOaertnxzvo24-95-0110SUPJ-JTP-2 (COVID-19) vaccine, mRNA, spike protein, LNP, PF, megha-sucrose, 30 mcg/0.3 mLMarc Sherri OROZCO Work Phone: [facility] CenterSvmamxgwek86-14-3862hlsnyjozl virus vaccine, unspecified formulationOrHarQen [facility]09-26-2022Influenza, High-dose Seasonal, Quadrivalent, Preservative Free Filipe Polanco MD Work Phone: [facility] CenterEnbmznzwio86-93-0543UAUO-JnE-3 (COVID-19) mRNAMUL.ORD!f54748Ougfvdz WATERS [facility]11-19-2021SARS-CoV-2 (COVID-19) mRNA BNT-162b2 vaxJoy ZHANG [facility]11-10-2021influenza virus vaccine, unspecified formulationPatrick friendfund [facility]11-10-2021Influenza, injectable, Madin Orion Canine Kidney, preservative free, quadrivalentShaikh Clover OROZCO Work Phone: [facility] CenterIxoedyagaa69-20-7418JFXG-SlH-6 (COVID-19) mRNA- 1273 vaccinePaHarQen [facility]02-08-2021SARS-CoV-2 (COVID-19) mRNA-1273 vaccineJamaBootleg Markettyrell friendfund [facility]10-13-2020influenza virus vaccine, unspecified formulationPaHarQen [facility]10-13-2020influenza, injectable, quadrivalent, preservative freeShaikh Clover OROZCO Work Phone: [facility] CenterEbltlubibb20-54-7840uhvtbzwqunqe polysaccharide vaccine, 23 valentPaBootleg Markettyrell friendfund [facility] Payers DatePayer CategoryPayerPolicy [id number] Health Insurance [id number] 2002Medicare [id number] [id number] 1960 Private Health [id number]-[id number] 2.16.840.1.052992.3.57[id number] 2.16.840.1.635430.3.57[id number] 2.16840.1.919728.3.57[id number] 2.16840.1.172044.3.57[id number] 2.16840.1.939211.3.57[id number] 2.840.1.822700.3.57[id number] 2.840.1.680907.3.57[id number] 2.840.1.213589.3.57[id number] 2.840.1.942310.3.57[id number] 2.16840.1.913766.3.57[id number] 2.16840.1.786012.3.57[id number] 2.16840.1.532937.3.57[id number] 2.16840.1.324182.3.57[id number] 2..840.1.06[id number] 2.16.840.1.219603.3.579.2.531 Social History DateTypeDetailFacilityStart: 03-28-2021 End: 66-91-5884Vyerrkp smoking statusEx-smoker (finding)[facility] [employer] start: 04-04-2023 End: 84-95-7680Eno Assigned At BirthMaleExec[facility] [employer] start: 38-09-1830Qieuohb smoking statusNeverExecutive [facility] of [facility] SystemTolawrence+memorial hospitalquit 30 years ago Tobacco Use:. Stopped age 35 Years.[facility] [employer] smoking statusExec[facility] [employer] start: 04-16-1956 End: 34-98-9949Eudhatb of tobacco useCurrent smokerNOTX HealthcareStart: 04-16-1957 End: 14-06-2675Rrxklxc of tobacco useCigarette SmokerNOTX HealthcareStart: 04-04-2023 End: 40-17-4251Lsuryyvdbu smoked current (pack per day) - Reported1.5NOTX HealthcareStart: 09-81-4320Xio Assigned At BirthNot on fileNOTX HealthcareStart: 2023 End: 56-01-7511Qcsggxs intakeEx-drinker (finding)[facility] HealthcareWithin the last year, have you been afraid of your partner or ex-partner?NoNOMS HealthcareDo you belong to any clubs or organizations such as mandaen groups, unions, fraternal or athletic groups, or school groups?YesNOMS HealthcareAre you now , , , , never or living with a partner?MarriedNOMS HealthcareHow often to you have a drink containing alcohol?Monthly or lessNOMS HealthcareHow often do you have 6 or more drinks on 1 occasion?NeverNOMS HealthcareDo you feel stress - tense, restless, nervous, or anxious, or unable to sleep at night because yourmind is troubled all the time - these days [OSQ]To some extentNOMS Healthcare(I/We) worried whether (my/our) food would run out before (I/we) got money to buy more.Never trueNOTX HealthcareStart: 2023 Alcohol Commentcoffee 2 cups dailyNOTX HealthcareStart: 44-69-3660UkdQfit (finding)[facility] Functional Status SenzUzyeutmezjIndjjwOjmkqrwb59-91-9817Rbydlahend StatusN/AExec[facility]08-18-2023Functional StatusN/A[facility]02-17-2023Functional StatusN/A [facility]08-29-2022Functional StatusN/A[facility] Clinical Notes 12-12-2021 to 11-26-2024 Note Date & JzpnIeqjMasfujha14-84-6675 History of Present illness Narrative* Luciana Nicolas NP - 11/26/2024 4:04 AM EDTAssociated Problem(s): Gastroenteritis Reviewed [facility] ER notes Appears to be feeling [...] her. was also in the ER at [facility] a few days ago for gastroenteritis evaluation See [facility] ER notes, as well as labs: [...] anything for rate control. 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 doneagain 03/16/2020 RHIZOTOMY Right 05/25/2020 right theurapeutic rhizotomy sympathetic level of L4 and L5 - Dr Kim/[facility] family history is not on file. [...] with pain (HCC) Continue with gabapentin and Maribel OARRS reviewed Med Agreement signed: 05/28/24 Hypertension [...] file Fu in 3 months Gastroenteritis Reviewed [facility] ER notes Appears to be feeling better No s/s dehydration * Luciana Nicolas NP - 11/25/2024 6:46 AM EDTAssociated Problem(s): Phantom limb syndrome with pain (HCC) Continue with gabapentin and Maribel OARRS reviewed Med Agreement signed: 05/28/24 * [...] changes Current med: losartan documented in this encounterWestern Missouri Medical CenterCoikevmqjp46-28-6281 Hospital Discharge instructions Patient Education 11/24/2024 13:08:38 [...] to keep your urine pale yellow. ?Take vluo-ecb-tsezxxi or prescription medicines. ?Eat foods that are high in fiber, such as beans, whole grains, and fresh fruits and vegetables. ?Limit foods that are high in fat and processed sugars, such as fried or sweet foods. General instructions Take fxwu-qwt-jknlyit and prescription medicines only as told by [...] the muscles that help control urination. Take qxtr-ffo-rguztnp and prescription medicines only as told by your health care provider. Contact a health care provider if your symptoms do not improve or get worse. This information is not intended to replace advice given to you by your health care provider. Make sure you discuss any questions you have with your health care provider. Document Revised: 11/05/2020 Document Reviewed: 11/05/2020 [employer] Patient Education 2023 [employer]. Follow Up Care 08/18/2024 10:42:01 With:MILKA OROZCO, Joy Gutierrez, URL Address: [address] [place] [address] [place] [address] When: Unknown Comments:6 mos [facility] Quan 08-11-2025 NotePatient Education Urology Urinary Frequency, Adult Urinary frequency [...] keep your urine pale yellow. ? Take fzcl-agm-prvgltb or prescription medicines. ? Eat foods that are high in fiber, such as beans, whole grains, and fresh fruits and vegetables. ? Limit foods that are high in fat and processed sugars, such as fried or sweet foods. General instructions ??? Take nqtb-ddx-fvllzgm and prescription medicines only as told by [...] fluid and do not have a bladder infectionor other bladder condition. ??? Your health care provider may recommend that you keep a bladder diary, follow a bladder training program, or make dietary changes. ??? If told by your health care provider, do Kegel exercises to strengthen the muscles that help control urination. ??? Take cqyl-ttb-xwynfvv and prescription medicines only as told by your health care provider. ??? Contact a health care provider if your symptoms do not improve or get worse. This information is not intended to replace advice given to you by your health care provider. Make sure you discuss any questions you have with your health care provider. Document Revised: 11/05/2020 Document Reviewed: 11/05/2020 [employer] Patient Education ? 2023 [employer].[facility] 11-04-2024 Telephone encounter Note* Telephone Encounter - Tracy Nelson - 11/04/2024 3:52 PM EDT Patient is asking for a refill of hydrocodone acetaminophen. JN [facility] [id number] Miscellaneous Notes* Telephone Encounter - Tracy Nelson - 11/04/2024 3:52 PM EDT Patient is asking for a refill of hydrocodone acetaminophen. JN documented in this encounterWestern Missouri Medical CenterMsnnsixywz95-88-7076 History of Present illness Narrative* RORY ELENA - 08/26/2024 1:20 PM EDT Pt seen dr zhang about 1-2 weeks ago states that everything went well and he goes back in 6m I did call over to dr zhang and left a vm. * Luciana Nicolas NP - 08/26/2024 1:20 PM EDT Images from the original note [...] 300 mg, Oral, 2 times daily HYDROcodone-acetaminophen (Maribel) 5-325 MG tablet 1 tablet, Oral, Every [...] hypertrophy BPH with urinary obstruction Crohn's colitis (CMS/[facility]) Elevated PSA, between 10 and less than 20 ng/ml Hard of hearing Hematuria Hypertension (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 doneagain 03/16/2020 RHIZOTOMY Right 05/25/2020 right theurapeutic rhizotomy sympathetic level of L4 and L5 - Dr Kim/[facility] family history is not on file. [...] from 04/08 Phantom limb syndrome with pain ([facility]/HCC) Continue with gabapentin and Maribel OARRS reviewed Med Agreement signed: 05/28/24 Hypertension (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) OARRS reviewed Pain agreement is on file Fu in 3 months * Luciana Nicolas NP - 08/26/2024 6:39 AM EDTAssociated Problem(s): 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 (CMS/HCC) Continue with anti coagulation Follows with cardiology Reviewed note from 04/08 * Luciana Nicolas NP - 08/26/2024 6:39 AM EDTAssociated Problem(s): Hypertension (CMS/HCC) Please check blood pressure daily and record DASH diet Limit caffeine Take medication as directed Contact office if chest pain, pressure, dizziness, shortness of breath, swelling legs Recommend slow position changes Current med: losartan * Luciana Nicolas NP - 08/26/2024 6:39 AM EDTAssociated Problem(s): Phantom limb syndrome with pain (CMS/HCC) Continue with gabapentin and Maribel OARRS reviewed Med Agreement signed: 05/28/24 documented in this encounterWestern Missouri Medical CenterDncbndddzt75-17-1309 History of Present illness Narrative* RORY ELENA - 08/26/2024 1:20 PM EDT Pt seen dr zhang about 1-2 weeks ago states that everything went well and he goes back in 6m I did call over to dr zhang and left a vm. 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 doneagain 03/16/2020 RHIZOTOMY Right 05/25/2020 right theurapeutic rhizotomy sympathetic level of L4 and L5 - Dr iKm/[facility] family history is not on file. 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) OARRS reviewed Pain agreement is on file Fu in 3 months * Luciana Nicolas NP - 08/26/2024 6:39 AM EDTAssociated Problem(s): 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 (CMS/HCC) Continue with anti coagulation Follows with cardiology Reviewed note from 04/08 * Luciana Nicolas NP - 08/26/2024 6:39 AM EDTAssociated Problem(s): Hypertension (CMS/HCC) Please check blood pressure daily and record DASH diet Limit caffeine Take medication as directed Contact office if chest pain, pressure, dizziness, shortness of breath, swelling legs Recommend slow position changes Current med: losartan * Luciana Nicolas NP - 08/26/2024 6:39 AM EDTAssociated Problem(s): Phantom limb syndrome with pain (CMS/HCC) Continue with gabapentin and Maribel OARRS reviewed Med Agreement signed: 05/28/24 documented in this encounterWestern Missouri Medical [id number] Telephone encounter Note* Telephone Encounter - Luciana Nicolas NP - 08/26/2024 6:[address] taylor's office to get most UTD office notes please [place] [facility] [id number] Miscellaneous Notes* Telephone Encounter - Luciana Nicolas NP - 08/26/2024 6:[address] taylor's office to get most UTD office notes please [place] documented in this encounterWestern Missouri Medical [id number] NotePatient Education Urology Urinary Frequency, Adult Urinary frequency [...] keep your urine pale yellow. ? Take ulmx-eha-xckpfhf or prescription medicines. ? Eat foods that are high in fiber, such as beans, whole grains, and fresh fruits and vegetables. ? Limit foods that are high in fat and processed sugars, such as fried or sweet foods. General instructions ??? Take zsfb-mmm-brnhjsj and prescription medicines only as told by [...] fluid and do not have a bladder infectionor other bladder condition. ??? Your health care provider may recommend that you keep a bladder diary, follow a bladder training program, or make dietary changes. ??? If told by your health care provider, do Kegel exercises to strengthen the muscles that help control urination. ??? Take vlyr-pnx-fqbquhl and prescription medicines only as told by your health care provider. ??? Contact a health care provider if your symptoms do not improve or get worse. This information is not intended to replace advice given to you by your health care provider. Make sure you discuss any questions you have with your health care provider. Document Revised: 11/05/2020 Document Reviewed: 11/05/2020 [employer] Patient Education ? 2023 [employer].[facility] 05-28-2024 History of Present illness Narrative* Luciana Nicolas NP - 05/28/2024 11:00 AM EST Images from the original note were not [...] 300 mg, Oral, 2 times daily HYDROcodone-acetaminophen (Maribel) 5-325 MG tablet 1 tablet, Oral, Every [...] Above knee amputation of left lower extremity ([facility]) At low risk for fall Benign prostatic hyperplasia Benign prostatic hypertrophy BPH with urinary obstruction Crohn's colitis ([facility]) Elevated PSA, between 10 and less than 20 ng/ml Hard of hearing Hematuria Hypertension ([facility]) Iron deficiency anemia 08/01/2017 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 (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 doneagain 03/16/2020 RHIZOTOMY Right 05/25/2020 right theurapeutic rhizotomy sympathetic level of L4 and L5 - Dr Kim/[facility] family history is not on file. 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 Check cbc yearly and prn Monitor for s/s GI bleeding Relevant Orders CBC and differential Other Visit Diagnoses Phantom pain Relevant Medications gabapentin (Neurontin) 300 MG capsule HYDROcodone-acetaminophen (Maribel) 5-325 MG tablet * Luciana Nicolas NP - 05/28/2024 6:54 AM ESTAssociated Problem(s): Vitamin D deficiency Check lab * Luciana Nicolas NP - 05/28/2024 6:54 AM ESTAssociated Problem(s): Vitamin B12 deficiency Takes supplement daily * Luciana Nicolas NP - 05/28/2024 6:53 AM ESTAssociated Problem(s): Elevated PSA, between 10 and less than 20 ng/ml Established with dr zhang * Luciana Nicolas NP - 05/28/2024 6:53 AM ESTAssociated Problem(s): Benign prostatic hyperplasia Continue with dr zhang * Luciana Nicolas NP - 05/28/2024 6:52 AM ESTAssociated Problem(s): Encounter for subsequent annual wellness visit (AWV) in Medicare patient Reviewed Ht/Wt/BMI Recommend eye exam yearly Recommend dental exams twice a year Exercises is recommended most days of the week (appropriate as chronic conditions allow) Follow up yearly and prn * Luciana Nicolas NP - 05/28/2024 6:52 AM ESTAssociated Problem(s): 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 Check cbc yearly and prn Monitor for s/s GI bleeding * Luciana Nicolas NP - 05/28/2024 6:51 AM ESTAssociated Problem(s): Crohn's disease of small intestine without complications (CMS/HCC) No current sxs * Luciana Nicolas NP - 05/28/2024 6:51 AM ESTAssociated Problem(s): Crohn's disease of large intestine without complications (CMS/HCC) No current sxs * Luciana Nicolas NP - 05/28/2024 6:51 AM ESTAssociated Problem(s): Pulmonary hypertension, unspecified (CMS/HCC) Per ECHO findings 03/09 * Luciana Nicolas NP - 05/28/2024 6:51 AM ESTAssociated Problem(s): 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 (CMS/HCC) Continue with anti coagulation Follows with cardiology Reviewed note from 04/08 * Luciana Nicolas NP - 05/28/2024 6:50 AM ESTAssociated Problem(s): Hypertension (CMS/HCC) Please check blood pressure daily and record DASH diet Limit caffeine Take medication as directed Contact office if chest pain, pressure, dizziness, shortness of breath, swelling legs Recommend slow position changes Current med: losartan * Luciana Nicolas NP - 05/28/2024 6:50 AM ESTAssociated Problem(s): Phantom limb syndrome with pain (CMS/HCC) Continue with gabapentin and Maribel OARRS reviewed Med Agreement signed: 05/28/24 documented in this encounterWestern Missouri Medical [id number] Instructions* Patient Instructions* Luciana Nicolas NP - 05/28/2024 11:00 AM EST Get labs completed documented in this [facility]12-17-2024 History of Present illness Narrative* Luciana Nicolas NP - 04/01/2024 2:01 PM ESTAssociated Problem(s): Elevated PSA, between 10 and less than 20 ng/ml Sees Dr zhang, next appt April 2024 * Luciana Nicolas NP - 04/01/2024 1:20 PM EST Images from the original note were not [...] received at pharmacy He does follow with [facility] cardiology for a fib, and had recent visit with them as well recently, reviewed labs SUBJECTIVE: MEDICATIONS: Current Outpatient Medications Medication Instructions apixaban (Eliquis) 2.5 MG tablet 1 tablet, 2 times daily cyanocobalamin (Vitamin B-12) 1000 MCG tablet 1 tablet, Daily RT gabapentin (NEURONTIN) 300 mg, Oral, 2 times daily HYDROcodone-acetaminophen (Maribel) 5-325 MG tablet 1 tablet, Oral, Every [...] Above knee amputation of left lower extremity ([facility]) At low risk for fall Benign prostatic hyperplasia Benign prostatic hypertrophy BPH with urinary obstruction Crohn's colitis ([facility]) Elevated PSA, between 10 and less than 20 ng/ml Hard of hearing Hematuria Hypertension (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 doneagain 03/16/2020 RHIZOTOMY Right 05/25/2020 right theurapeutic rhizotomy sympathetic level of L4 and L5 - Dr Kim/[facility] family history is not on file. 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) OARRS reviewed Pain agreement is on file Fu in 3 months * Luciana Nicolas NP - 04/01/2024 7:20 AM ESTAssociated Problem(s): Pulmonary hypertension, unspecified (CMS/HCC) Per ECHO findings * Luciana Nicolas NP - 04/01/2024 7:20 AM ESTAssociated Problem(s): 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 (CMS/HCC) Continue with anti coagulation Follows with cardiology Reviewed note from 04/08 * Luciana Nicolas NP - 04/01/2024 7:19 AM ESTAssociated Problem(s): Hypertension (CMS/HCC) Please check blood pressure daily and record DASH diet Limit caffeine Take medication as directed Contact office if chest pain, pressure, dizziness, shortness of breath, swelling legs Recommend slow position changes Current med: losartan * Luciana Nicolas NP - 04/01/2024 7:19 AM ESTAssociated Problem(s): Aneurysm of the ascending aorta, without rupture (CMS/HCC) Continues to follow with cardiology for monitoring * Luciana Nicolas NP - 04/01/2024 7:18 AM ESTAssociated Problem(s): Phantom pain Continue with current treatment Pain agreement on file: 08/31/23 OARRS reviewed documented in this [facility]12-17-2024 Instructions* Patient Instructions* Luciana Nicolas NP - 04/01/2024 1:20 PM EST Follow up elizabeth early 06/10, this will be a medicare wellness appoitment Check at [facility] for pain pill documented in this encounterWestern Missouri Medical [id number] NoteUT Cardiology - [facility] Subjective Robin Paz is a [...] 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 fib and RVR. He [...] reaction(s): Other (See Comments) (more content not included)...[facility]12-02-2024 Telephone encounter Note* Telephone Encounter - Luciana Nicolas NP - 03/17/2024 2:15 PM EST Pt does need a fu appt. With getting pain meds, he does need to be seen every 3 months, he has cancelled a couple appts in February. I am sure with his 's medical it has been difficult, but please schedule him in [place] [facility] [id number] Miscellaneous Notes* Telephone Encounter - Luciana Nicolas NP - 03/17/2024 2:15 PM EST Pt does need a fu appt. With getting pain meds, he does need to be seen every 3 months, he has cancelled a couple appts in February. I am sure with his 's medical it has been difficult, but please schedule him in [place] documented in this encounterWestern Missouri Medical CenterMfdgqtqowy98-90-2108 Hospital Discharge instructions Patient Education 08/17/2023 10:01:11 Benign Prostatic Hyperplasia Benign Prostatic Hyperplasia Benign prostatic hyperplasia (BPH) is an enlarged prostate gland that is caused by the normal agingprocess. The prostate may get bigger as a man gets older. The condition is not caused by cancer. The prostate is a walnut-sized gland that is involved in the production of semen. It is located in front of the rectum and below the bladder. The bladder stores urine. The urethra carries stored urine ou t of the body. An enlarged prostate can press on the urethra. This can make it harder to pass urine. The buildup of urine in the bladder can cause infection. Back pressure and infection may progress to bladder damage and kidney (renal) failure. What are the causes? This condition is part of the normal aging process. However, not all men develop problems from thiscondition. If the prostate enlarges away from the [...] urethra. Follow these instructions at home: Take fhen-fym-bcqzkkn and prescription medicines only as told by [...] provider. Document Revised: 10/19/2021 Document Reviewed: 10/19/2021 [employer] Patient Education 2022 [employer]. Follow Up Care 06/11/2023 11:07:33 With:MILKA OROZCO, Joy Gutierrez, URL Address: [address] [place] [id number]- When: Unknown [facility] 02-07-2024 History of Present illness Narrative* Luciana Nicolas, BETSY - 2023 11:39 AM ESTAssociated Problem(s): Encounter for subsequent annual wellness visit (AWV) in Medicare patient Reviewed Ht/Wt/BMI Recommend eye exam yearly Recommend dental exams twice a year Balance work/leisure activities Exercises is recommended most days of the week (appropriate as chronic conditions allow) Follow up yearly and prn Would still like to be a full code * Luciana Nicolas NP - 2023 11:39 AM ESTAssociated Problem(s): Benign prostatic hyperplasia Continue with dr zhang * Luciana Nicolas NP - 2023 11:39 AM ESTAssociated Problem(s): Hypertension (CMS/HCC) Takes losartan every other day, no side effects Is under good control Check labs * Luciana Nicolas NP - 2023 11:38 AM ESTAssociated Problem(s): 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 (CMS/HCC) Continue with eliquis, no s/s GI bleeding Cont w cardiology as well * Luciana Nicolas NP - 2023 11:38 AM ESTAssociated Problem(s): Phantom pain (CMS/HCC) Continue with current treatment * Luciana Nicolas NP - 2023 10:00 AM EST Images from the original note were not [...] 300 mg, Oral, 2 times daily HYDROcodone-acetaminophen (Maribel) 5-325 MG tablet 1 tablet, Oral, 2 [...] up yearly and prn [id number] Discharge instructions Patient Education 12/01/2022 09:54:31 Benign Prostatic Hyperplasia Benign Prostatic Hyperplasia Benign prostatic hyperplasia (BPH) is an enlarged prostate gland that is caused by the normal agingprocess. The prostate may get bigger as a man gets older. The condition is not caused by cancer. The prostate is a walnut-sized gland that is involved in the production of semen. It is located in front of the rectum and below the bladder. The bladder stores urine. The urethra carries stored urine ou t of the body. An enlarged prostate can press on the urethra. This can make it harder to pass urine. The buildup of urine in the bladder can cause infection. Back pressure and infection may progress to bladder damage and kidney (renal) failure. What are the causes? This condition is part of the normal aging process. However, not all men develop problems from thiscondition. If the prostate enlarges away from the [...] urethra. Follow these instructions at home: Take quzv-wpd-cdibtve and prescription medicines only as told by [...] provider. Document Revised: 10/19/2021 Document Reviewed: 10/19/2021 [employer] Patient Education 2022 [employer]. Follow Up Care 06/02/2022 11:46:25 With:MILKA OROZCO, Joy Gutierrez, URL Address: [address] [place] [phone]- When: Unknown [facility] 02-17-2023 Hospital Discharge instructions Patient Education 06/02/2022 11:41:04 [...] done before cancer symptoms start. Screening can helpto identify cancer at an early stage, when [...] if you need screening if you have oneof these risk factors: ?Being of -[place]ian descent. ?Having a family history of prostate [...] you: Are older than age 55. Are -E[place]ian. Have a father, brother, or uncle who [...] not tell you if your cancer needs elena treated. Slow-growing prostate cancer may not need [...] 01/11/2018 Document Revised: 03/15/2018 Document Reviewed: 01/11/2018 [employer] Patient Education 2020 [employer]. Follow Up Care 05/01/2022 08:18:24 With:MILKA OROZCO, Joy Gutierrez, URL Address: [address] [place] [address] [place] [address]- When: Unknown [facility] 01-31-2023 Hospital Discharge instructions Patient Education 05/16/2022 11:08:16 [...] week (and blood in the semen for severalmonths) Diet -You may resume your normal diet, [...] for your post-operative appointment in 1-2 weeks [phone] or [phone] Follow Up Care 05/01/2022 08:13:35 With:Joy ZHANG Address: [facility] [address] [place] [address]- Business (1) When: Unknown Comments:Keep scheduled appointment [facility]08-29-2022 Hospital Discharge instructions Patient Education 12/12/2021 12:10:29 [...] done before cancer symptoms start. Screening can helpto identify cancer at an early stage, when [...] if you need screening if you have oneof these risk factors: ?Being of -E[place]ian descent. ?Having a family history of prostate [...] you: Are older than age 55. Are -E[place]ian. Have a father, brother, or uncle who [...] not tell you if your cancer needs elena treated. Slow-growing prostate cancer may not need [...] 01/11/2018 Document Revised: 03/15/2018 Document Reviewed: 01/11/2018 [employer] Patient Education 2020 [employer]. Follow Up Care 12/10/2020 12:14:36 With:Joy ZHANG MD, URL Address: [address] [place] [phone]- When:Within 2 Month(s) [facility] evaluation + Plan note Future Appointments Appointment Date:12/12/2021 11:15:00 AM Scheduled Provider:Joy ZHANG MD Location:[facility] Appointment Type:URO Office Visit Diagnostic Tests Pending * UroVysion Fish and Urine Cyto ([facility]) 09/16/21 [facility] evaluation + Plan note Future Appointments Appointment Date:02/13/2022 11:15:00 AM Scheduled Provider:Joy ZHANG MD Location:[facility] Appointment Type:URO Office Visit Diagnostic Tests Pending * PSA Total 12/29/21 [facility] evaluation + Plan note Future Appointments Appointment Date:06/02/2022 11:00:00 AM Scheduled Provider:[facility]HANG [facility]O Office Visit Diagnostic Tests Pending * Prostate Histology ([facility]) [facility]ments Appointment Date:12/01/2022 08:45:00 AM Scheduled Provider:Joy ZHANG MD Location:[facility] Appointment Type:URO Office Visit Diagnostic Tests Pending * PSA Total 10/14/22 [facility] evaluation + Plan note Future Appointments Appointment Date:06/11/2023 09:45:00 AM Scheduled Provider:Joy ZHANG MD Location:[facility] Appointment Type:URO Office Visit [facility] evaluation + Plan note Future Appointments Appointment Date:08/18/2024 10:30:00 AM Scheduled Provider:Joy ZHANG MD Location:[facility] Appointment Type:URO Office Visit [facility] evaluation + Plan note Future Appointments Appointment Date:11/24/2024 12:45:00 PM Scheduled Provider:Joy ZHANG MD Location:[facility] Appointment Type:URO Office Visit Diagnostic Tests Pending * Urine Cytology ([facility]) 08/18/24 [facility] Evaluation + Plan note Future Appointments Appointment Date:05/29/2025 11:00:00 AM Scheduled Provider:Joy ZHANG MD Location:[facility] Appointment Type:URO Office Visit [facility] evaluation note* Diagnosis Encounter for subsequent annual wellness visit (AWV) in Medicare patient- Primary Phantom pain (CMS/HCC) Phantom limb (syndrome) Iron deficiency anemia, unspecified iron deficiency anemia type Primary hypertension ([facility]/HCC) Unspecified essential hypertension 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 ([facility]/HCC) Atrial fibrillation Benign prostatic hyperplasia with lower [...] Phantom limb (syndrome) documented in this encounter [facility]* Diagnosis Phantom pain- [...] than 20 ng/ml documented in this encounter [facility]* Diagnosis Phantom pain Phantom [...] Phantom limb (syndrome) documented in this encounter [facility] HealthcareEvaluation note* Diagnosis Phantom pain- Primary Phantom [...] knee upon examination (HCC) (CMS/HCC) 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 Encounter for long-term (current) use of anticoagulants Benign prostatic hyperplasia with lower urinary tract symptoms, symptom details unspecified Elevated PSA, between 10 and less than 20 ng/ml Vitamin B12 deficiency Other B-complex deficiencies Vitamin D deficiency Primary hypertension (CMS/HCC) Unspecified essential hypertension Phantom pain Phantom limb (syndrome) documented in this encounter [facility] note* Diagnosis Phantom pain- Primary Phantom [...] knee upon examination (HCC) (CMS/HCC) Hx of detention use of blood thinners Encounter for long-term [...] deficiency anemia type documented in this encounter [facility] note* Diagnosis Phantom pain- Primary Phantom [...] knee upon examination (HCC) (CMS/HCC) Hx of detention use of blood thinners Encounter for long-term (current) use of anticoagulants Benign prostatic hyperplasia with lower urinary tract symptoms, symptom details unspecified Elevated PSA, between 10 and less than 20 ng/ml Vitamin B12 deficiency Other B-complex deficiencies Vitamin D deficiency Primary hypertension (CMS/HCC) Unspecified essential hypertension Phantom pain Phantom limb (syndrome) Phantom pain Phantom limb (syndrome) documented in this encounter [facility] note* Diagnosis Phantom pain- Primary Phantom [...] knee upon examination (HCC) (CMS/HCC) 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 Encounter for long-term (current) use of anticoagulants Benign prostatic hyperplasia with lower urinary tract symptoms, symptom details unspecified Elevated PSA, between 10 and less than 20 ng/ml Vitamin B12 deficiency Other B-complex deficiencies Vitamin D deficiency Primary hypertension (CMS/HCC) Unspecified essential hypertension Phantom pain Phantom limb (syndrome) Phantom pain Phantom limb (syndrome) documented in this encounter [facility]* Diagnosis Phantom pain- [...] knee upon examination (HCC) (CMS/HCC) Hx of detention use of blood thinners Encounter for long-term [...] than 20 ng/ml documented in this encounter [facility]* Diagnosis Phantom pain- [...] knee upon examination (HCC) (CMS/HCC) Hx of detention use of blood thinners Encounter for long-term [...] than 20 ng/ml documented in this encounter [facility]* Diagnosis Phantom pain- [...] knee upon examination (HCC) (CMS/HCC) Hx of detention use of blood thinners Encounter for long-term [...] Phantom limb (syndrome) documented in this encounter [facility] note* Diagnosis Phantom pain- Primary Phantom [...] above knee upon examination (HCC) Hx of detention use of blood thinners Encounter for long-term [...] deficiency anemia type documented in this encounter [facility]* Diagnosis Phantom pain- [...] above knee upon examination (HCC) Hx of detention use of blood thinners Encounter for long-term [...] Phantom limb (syndrome) documented in this encounter [facility] note* Diagnosis Phantom pain- Primary Phantom [...] above knee upon examination (HCC) 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 Encounter for long-term [...] gastroenteritis and colitis documented in this encounter [facility] note* Diagnosis Phantom pain- [...] above knee upon examination (HCC) Hx of detention use of blood thinners Encounter for long-term [...] Other and unspecified noninfectious gastroenteritis and colitis Iron deficiency anemia, unspecified iron deficiency anemia type documented [facility] Narrative No data available for this section [facility] Discharge instructions No data available for this section [facility] progress note No data available for this section [facility] Summary Purpose Family History No Family History [...] and content) DATE CREATED AUTHOR 03/15/2021 [facility] DATE CREATED AUTHOR AUTHOR'S ORGANIZ ATION 04/07/2022 [facility] DATE CREATED AUTHOR AUTHOR'S ORGANIZ ATION 06/24/2022 [facility] DATE CREATED AUTHOR AUTHOR'S ORGANIZ ATION 04/02/2024 [facility] DATE CREATED AUTHOR AUTHOR'S ORGANIZ ATION 11/25/2024 [facility] DATE CREATED AUTHOR AUTHOR'S ORGANIZ ATION 11/27/2024 [facility] EPIC Care Team (unrecognized sect ion and content) Team MemberRelationshipSpecialtyStart DateEnd Date Filipe Polanco MD PCP - GeneralFamily Medicine10/06/22Team MemberRelationshipSpecialtyStart DateEnd Date Filipe Polanco MD [address] [place] [address] PCP - GeneralFamily Medicine05/23/23 Luciana Nicolas NP [address] [place] [address] [facility]05/23/23Team MemberRelationshipSpecialtyStart DateEnd Date Filipe Polanco MD [address] [place] [address] [facility] - [facility]05/23/23 Luciana Nicolas NP [address] [place] [address] Nurse [facility]05/23/23Team MemberRelationshipSpecialtyStart DateEnd Date Filipe Polanco MD [address] [place] [address] PCP - [facility]05/23/23 Luciana Nicolas NP [address] [place] [address] [facility]05/23/23Team MemberRelationshipSpecialtyStart DateEnd Date Filipe Polanco MD [address] [place] [address] PCP - [facility]05/23/23 Luciana Nicolas NP [address] [place] [address] [facility]05/23/23Team MemberRelationshipSpecialtyStart DateEnd Date Filipe Polanco MD [address] [place] [address] PCP - Generalmily Medicine05/23/23 Luciana Nicolas NP [address] [place] [address] [facility]05/23/23Team MemberRelationshipSpecialtyStart DateEnd Date Filipe Polanco MD [address] [place] [address] PCP - [facility]05/23/23 Luciana Nicolas NP [address] [place] [address] [facility] [place]05/23/23Team MemberRelationshipSpecialtyStart DateEnd Date Filipe Polanco MD [address] [place] [address] P[facility] - [facility]05/23/23 Luciana Nicolas NP [address] [place] [address] PCP - [facility]05/23/24 Luciana Nicolas NP [address] [place] [address] [facility]05/23/23Team MemberRelationshipSpecialtyStart DateEnd Date Filipe Polanco MD [address] [place] [address] PCP - GeneralFamily Medicine05/23/23 Luciana Nicolas NP [address] [place] [address] PCP - [facility]05/23/24 Luciana Nicolas NP [address] [place] [address] [facility]05/23/23Team MemberRelationshipSpecialtyStart DateEnd Date Filipe Polanco MD [address] [place] [phone] PCP - [facility]05/23/23 Luciana Nicolas NP [address] [place] [address] PCP - [facility]05/23/24 Luciana Nicolas NP [address] [place] [address] [facility] Medicine05/23/23Team MemberRelationshipSpecialtyStart DateEnd Date Filipe Polanco MD [address] [place] [address] [facility] - [facility]05/23/23 Luciana Nicolas NP [address] [place] [address] PCP - O [facility]05/23/24 Luciana Nicolas NP [address] [place] [address] [facility]05/23/23Team MemberRelationshipSpecialtyStart DateEnd Date Filipe Polanco MD [address] [place] [address] PCP - [facility]05/23/23 Luciana Nicolas NP [address] [place] [address] PCP - [facility]05/23/24 Luciana Nicolas NP [address] [place] [address] [facility]05/23/23Team MemberRelationshipSpecialtyStart DateEnd Date Filipe Polanco MD [address] [place] [address] PCP - [facility]05/23/23 Luciana Nicolas NP [address] [place] [address] PCP [facility]05/23/24 Luciana Nicolas NP [address] [place] [address] [facility]05/23/23Team MemberRelationshipSpecialtyStart DateEnd Date Filipe Polanco MD [address] [place] [address] PCP - [facility]05/23/23 Luciana Nicolas NP [address] [place] [address] PCP - O [facility]05/23/24 Luciana Nicolas NP [address] [place] [address] [facility]05/23/23Team MemberRelationshipSpecialtyStart DateEnd Date Filipe Polanco MD [address] [place] [address] PCP - [facility]05/23/23 Luciana Nicolas NP [address] [place] [address] [facility] Luciana Nicolas NP [address] [place] [address] [facility]05/23/23Team MemberRelationshipSpecialtyStart DateEnd Date Filipe Polanco MD [address] [place] [address] PCP - [facility]05/23/23 Luciana Nicolas NP [address] [place] [address] PCP - [facility]05/23/24 Luciana Nicolas NP [address] [place] [address] [facility]05/23/23Team MemberRelationshipSpecialtyStart DateEnd Date Filipe Polanco MD [address] [place] [address] PCP - [facility]05/23/23 Luciana Nicolas NP [address] [place] [address] PCP - [facility]05/23/24 Luciana Nicolas NP [address] [place] [address] [facility]05/23/23Team MemberRelationshipSpecialtyStart DateEnd Date Filipe Polanco MD [address] [place] [address] PCP - [facility]05/23/23 Luciana Nicolas NP [address] [place] [address] PCP - [facility]05/23/24 Luciana Nicolas NP [address] [place] [address] [facility]05/23/23Team MemberRelationshipSpecialtyStart DateEnd Date Filipe Polanco MD [address] [place] [address] [facility]CP - [facility]05/23/23 Luciana Nicolas NP [address] [place] [address] PCP - [facility]05/23/24 Luciana Nicolas NP [address] [place] [address] [facility]05/23/23Team MemberRelationshipSpecialtyStart DateEnd Date Filipe Polanco MD [address] [place] [address] PCP - [facility]05/23/23 Luciana Nicolas NP [address] [place] [address] PCP - [facility]05/23/24 Luciana Nicolas NP [address] [place] [address] [facility]05/23/23Team MemberRelationshipSpecialtyStart DateEnd Date Filipe Polanco MD [facility] - [facility]05/23/23 Luciana Nicolas NP [address] [place] [address] PCP - [facility]05/23/24 Luciana Nicolas NP Nurse PractitionerFamily Medicine05/23/23 Reason for Visit (unrecogniz ed section and content) ReasonOnset DateCommentsMed [id number] DateCommentsMed Refill 4ReasonOnset DateCommentsMed Bjftuh1806/25/2024ReasonOnset DateComments Med Wgykew4908/11/2024ReasonOnset DateCommentsMed Wmffkn7809/22/2024ReasonOnset Date CommentsMed Xhimzv8511/04/2024ReasonCommentsER Follow-up FOR RECORDS PERTAINING TO PATIENTS WHO [...] BE BASED ON THE PRIMARY CLINICAL RECORDS. [employer] [facility]. provides no warranty or guarantee of the accuracy or completeness of information in this document.
--- NOTE | 2025-02-23 10:00 | CA_ITS ---
Patient Name: ROBIN PAZ MR#: [id number] : 1935 Exam Date: 02/23/2025 Ordering Doctor: DR DANGELO JAEGER M.D. ECHOCARDIOGRAM REPORT PROCEDURE: CA ECHO DOPPLER COMPLETE INDICATIONS: Aneurysm of ascending aorta COMPARISON: None. DESCRIPTION: COMPLETE ECHOCARDIOGRAM Real-time transthoracic echocardiography with 2D, M-mode, spectral and color flow Doppler performed. QUALITY: Technical quality was good. LEFT VENTRICLE: Normal chamber size. Proximal septal hypertrophy (sigmoid septum). LV EF: Global left ventricular systolic function is normal; visually estimated ejection fraction is 60 to 65% no significant wall motion abnormalities. DIASTOLIC: Normal diastolic function. ATRIAL SEPTUM: Inadequately seen. LEFT ATRIUM: Normal chamber size. RIGHT ATRIUM: Normal chamber size. RIGHT VENTRICLE: Normal chamber size. Normal right ventricular systolic function. TRICUSPID VALVE: Normal mobility and thickness. No stenosis with mild regurgitation. No evidence of pulmonary hypertension. RVSP 26mmHg. MITRAL VALVE: Normal mobility and thickness. No evidence of mitral valve stenosis. Trivial mitral regurgitation. AORTIC VALVE: Normal trileaflet appearance. Mildly calcified aortic valve. Normal leaflet mobility. No evidence of aortic valve stenosis. Trivial aortic regurgitation. AORTIC ROOT: Moderately dilated. Measuring 4.5cm. The ascending aorta is mildly dilated and measures 4.4cm. This appears unchanged from prior exam. PULMONIC VALVE: Normal thickness and mobility. No stenosis. Trivial regurgitation. PERICARDIUM: No evidence of pericardial effusion. IVC: Collapses with inspiration. Normal size. 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; mildly dilated ascending aorta measuring 4.4 cm Adult Echocardiography Procedure Report Left Ventricle LVEDD (3.7 - 5.6 cm): 4.12 cm LVESD (2.2 - 4.0 cm): 3.00 cm LVIVS thickness (0.6 - 1.2 cm): 1.58 cm LVPW thickness (0.5 - 1.0 cm): 0.98 cm e': 0.09 m/s E - e': 6.82 LVOT Max Gradient: 4.09 mm[Hg] LVOT Area (cm2): 1.01 m/s Peak Velocity (LVOT): 1.01 m/s Mean Velocity (LVOT): 0.71 m/s LVOT Diameter 2.30 cm Left Ventricular Ejection Fraction: 69.35 % Left Atrium LA Volume Index (2D A2C): 33.60 ml/m2 Left Atrium Systolic Dimension: 2.86 cm Mitral Valve MV E to A Ratio: 0.79 MV Max Gradient: MV Mean Gradient: Mitral Valve A-Wave Peak Velocity: 0.76 m/s Mitral Valve E-Wave Peak Velocity: 0.60 m/s Cardiovascular Orifice Area: Right Ventricle RV Internal Diastolic Dimension: 3.38 cm Aorta AO Root Diam: 4.53 cm Ascending Ao Diam: 4.35 cm Aortic Valve AoV Area (Peak Troy): 2.59 cm2, 2.59 cm2 AoV Area (VTI): 2.70 cm2, 2.70 cm2 Deceleration Forest: Pressure Half-Time: Peak Velocity(Antegrade Flow): 1.62 m/s Peak Gradient(Antegrade Flow): 10.55 mm[Hg] Mean Velocity(Antegrade Flow): 1.19 m/s Mean Gradient(Antegrade Flow): 6.26 mm[Hg] Velocity Time Integral: 32.34 cm Tricuspid Valve Peak Velocity (Regurgitant Flow): 2.25 m/s, 2.42 m/s, 2.26 m/s Peak Velocity: Pulmonic Valve Mean Gradient: 1.40 mm[Hg] Mean Velocity: 0.56 m/s Peak Velocity: 0.77 m/s, 0.80 m/s Peak Gradient: 2.55 mm[Hg], 2.35 mm[Hg] Right Atrium Right Atrium Systolic Pressure: 27.21 ml, 27.21 ml Dictated by: Donaldo Forrest M.D. on 02/23/2025 at 17:39 Approved by: Donaldo Forrest M.D. on 02/23/2025 at 17:43
== END 2025-02-23 09:38 | disposition home or self-care (01) ==
LOC: CARD 09:37
PROVIDERS: PCP Nurse Practitioner; Visit Provider Internal Medicine Interventional Cardiology
DX: I71.21 Aneurysm of the ascending aorta, without rupture (principal)
CPT/HCPCS: 93306

== ENCOUNTER 2025-03-05 11:07 | Outpatient (OUT) | payer MEDICARE, SELFPAY ==
[2025-03-05 11:44] LABS: Hematocrit 35.7 % (42.0-54.0); Hemoglobin 11.6 g/dL (14.0-18.0); Immature Granulocytes Abs Auto 0.02 10^3/uL (0.00-0.03); Immature Granulocytes Pct Auto 0.3 % (0.0-0.5); Lymphocytes Absolute Auto 1.2 10^3/uL (1.2-3.8); Mean Corpuscular HGB Conc 32.5 g/dL (29.9-35.2); Mean Corpuscular Hemoglobin 29.6 pg (25.9-34.0); Mean Corpuscular Volume 91.1 fL (80.0-94.0); Platelet Count 391 10^3/uL (150-450); Red Blood Count 3.92 10^6/uL (4.70-6.10); White Blood Count 7.0 10^3/uL (4.0-11.0)
[2025-03-05 11:50] LABS: Glucose Urine UA NEGATIVE (NEGATIVE)
[2025-03-05 12:03] LABS: Cast Seen? NONE SEEN #/LPF (NONE SEEN); Crystals Seen? None Seen #/HPF (None Seen)
--- OUTSIDE RECORDS SUMMARY | 2025-03-05 12:11 | XMS_ITS | CCD ---
Author Organization [facility] CliniSyla Care Team Providers Care Support Services Tech Name Role Phone LITO CARDENASMatt JANA Referring Unavailable LITO JENNIFER NANCYALEA Primary Care Unavailable UNKNOWN, PROVIDER Attending Unavailable UNKNOWN, PROVIDER Admitting Unavailable Irvin White Primary Care Physician LUCIANA NICOLAS Primary Care Physician Wesley Diaz Primary Care Unavailable Joy Zhang Attending Unavailable Joy Zhang Admitting Unavailable MOUKABROOKLYNN, DR PIERSON Admitting Unavailable MOUKARBEL, DR PIERSON Attending Unavailable AICHHOLZ, LINING MAKER HAND LUCIANA Primary Care Unavailable MOUKARBTOSHIA, DR PIERSON Consulting Unavailable AICHHOLZ, LINING MAKER HAND LUCIANA Primary Care Unavailable CASTRO REYES Admitting Unavailable KATH ., CASTRO Attending Unavailable KATH .MICHAELID Consulting Unavailable MEGAN, MONSTER Admitting Unavailable MONSTER GUZMAN Attending Unavailable IRVIN WHITE Primary Care Unavailable AICHHOLZ, LINING MAKER HAND LUCIANA Admitting Unavailable AICHHOLZ, LINING MAKER HAND LUCIANA Attending Unavailable AICHHOLZ, LINING MAKER HAND LUCIANA Primary Care Unavailable DEJUAN GUZMANINDA Admitting Unavailable MONSTER GUZMAN Attending Unavailable AICHHOLZ, LINING MAKER HAND LUCIANA Primary Care Unavailable MEGAN, MONSTER Consulting Unavailable AICHHOLZ, LINING MAKER HAND LUCIANA Admitting Unavailable AICHHOLZ, LINING MAKER HAND LUCIANA Attending Unavailable AICHHOLZ, LINING MAKER HAND LUCIANA Primary Care Unavailable AICHHOLZ, LINING MAKER HAND LUCIANA Consulting Unavailable DR JOY LUNA Admitting Unavailable DR JOY LUNA Attending Unavailable AICHHOLZ, LINING MAKER HAND LUCIANA Primary Care Unavailable DR JOY LUNA Consulting Unavailable Sherri OROZCO, Filipe Primary Care Provider Filipe Polanco MD Primary Care Provider Aichhololayinka SEISMOGRAPH SHOOTER, Luciana Unavailable iFdencio SEISMOGRAPH SHOOTER, Luciana Unavailable DANGELO JAEGER Attending Unavailable Aicholz SEISMOGRAPH SHOOTER, Luciana Unavailable Joy ZHANG Attending Unavailable MILKA, Joy Gutierrez Attending Unavailable ZHANG, Joy Gutierrez Attending Unavailable MILKA, Joy Gutierrez Admitting Unavailable MILKA, Joy R Attending Unavailable AICHHOLZ, LUCIANA Attending Unavailable AICHHOLZ, LUCIANA Attending Unavailable AICHHOLZ, LUCIANA Attending Unavailable AICHHOLZ, LUCIANA Attending Unavailable Filipe Polanco MD Primary Care Provider Aiccaryl SEISMOGRAPH SHOOTER, Luciana Unavailable Aicholz SEISMOGRAPH SHOOTER, Luciana Unavailable Allergies Allergy ClassificationReported Allergen(s)Allergy TypeDate of OnsetReaction(s) Facility (12 sources)Penicillins; Translations: [penicillins]Drug allergy (disorder) 77-12-9476Qexpsxb (qualifier value)[facility] Repository (10 sources)Dicloxacillin; Translations: [dicloxacillin]Drug Vnvnesd66-26-1759 Other (qualifier value)[facility] (1 source)Unable to AssessDrug allergy (disorder)27-00-4980QseyoknldOhiohealth Berger Hospital Repository (4 sources)Penicillin GDrug Dumckgz36-63-5654FbnvgvnFCAC Healthcare (20 sources)Penicillins; Translations: [penicillins]Drug Xvoagaxttty64-15-5168 Other, Unknown (qualifier value)[facility] Medications Current Medications MedicationDrug Class(es)DatesSig (Normalized)Sig (Original)acetaminophen 325 mg / HYDROcodone bitartrate 5 mg oral tablet (20 sources)Opioid AgonistStart: 69-99-6129xfivfpzojvkfe-hydrocodone 325 mg-5 mg oral tablet 1 tab(s), Refill(s) 0 Start Date: 11/24/24 Status:Ordered Repeat number: 1Start: 11-04-2024 End: 38-81-6344grid 1 tablet by mouth onceHYDROcodone-acetaminophen (Traver) 5- 325 MG tablet Indications: 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) , Phantom limb syndrome with pain (HCC) Take 1 tablet by mouth every 12 (twelve) hours if needed for severe pain 60 tablet 11/04/2024 12/04/2024 ActiveStart: 11-21-2023 End: 17-04-2677ngqv 1 tablet by mouth onceHYDROcodone-acetaminophen (Traver) 5- 325 MG tablet Indications: Phantom pain Take 1 tablet by mouth every 12 (twelve) hours if needed for severe pain 60 tablet 09/22/2024 10/22/2024 ActiveStart: 05-16-2023 End: 58-34-2090kgfa 1 tablet by mouth twice daily as needed for painHYDROcodone- acetaminophen (Traver) 5-325 MG tablet Indications: Phantom pain (CMS/HCC) Take 1 tabletby mouth 2 (two) times a day as needed for severe pain 60 tablet 0 05/16/2023 06/15/2023 ActiveStart: 30-24-9506Tigdt 325 mg-7.5 mg oral tablet 1 tab(s), Oral, Once, 1 tab(s), Refill(s) 0, Take 1 hour prior to procedure. Don't drive or operate machinery while taking this medication., [facility] [id number], 185, cm, 02/13/22 11:34:00 EDT, Height/Length Dosing, 74.8, kg, 02/13/22 11:34:00 E... Start Date: 05/01/22 Status: Orderedapixaban 2.5 mg oral tablet (20 sources)Factor Xa InhibitorStart: 32-80-6669hkor 1 tablet by mouth in the morningapixaban (Eliquis) 2.5 MG tablet Take 1 tablet by mouth in the morning and 1 tablet in the evening.10/30/2022 ActiveAspirin (4 sources)Platelet Aggregation Inhibitor, Nonsteroidal Anti-inflammatory Drug Start: 87-42-7393fhraumx Start Date: 09/24/19 Status: Orderedcholecalciferol 0.05 mg oral capsule (7 sources)Vitamin DStart: 05-30-2024 End: 84-84-7484xfgh 1 capsule by mouth once dailycholecalciferol (Vitamin D-3) 50 MCG (1999 UT) capsule Indications: Vitamin D deficiency Take 1 capsule (50 mcg) by mouth Daily 90 capsule 05/30/2024 08/28/2024 Activeciprofloxacin 250 mg oral tablet (2 sources)Quinolone AntimicrobialStart: 74-35-7347bpza 1 tablet by mouth twice dailyCipro 250 mg Tab 250 mg = 1 tab(s), Oral, BID, # 42 tab(s), Refills(s) 0, [id number], 185, cm, 12/12/21 12:02:00 EDT, Height/Length Dosing, 74.8, kg, 12/12/21 12:02:00 EDT, Weight Dosing Start Date: 12/12/21 Status: OrderedStart: 66-51-6505xdmx 1 mg by mouth every twelve hoursCipro 500 mg Tab mg tab(s), Oral, q12hr, Refills(s) 0 Start Date: 03/28/21 Status: Ordered ferrous gluconate 256 mg oral tablet (1 source)Start: 21-56-7981nuimyms gluconate 256 mg (28 mg elemental iron) oral tablet 256 mg = 1 tab(s), Oral, Daily, # 100 tab(s), Refills(s) 0 Start Date: 12/08/19 Status: Orderedferrous sulfate 325 mg oral tablet (15 sources)Start: 11-07-2024 End: 37-39-3153pfsq 1 tablet by mouth in the morningferrous sulfate 325 (65 Fe) MG tablet Indications: Iron deficiency anemia, unspecified iron deficiency anemia type Take 1 tablet (325 mg) by mouth in the morning and 1 tablet (325 mg) in the evening.Take with meals. 180 tablet 12/02/2024 03/02/2025 ActiveStart: 05-30-2024 End: 00-76-3576wanp 1 tablet by mouth at mealtimeferrous sulfate 325 (65 Fe) MG EC tablet Indications: Iron deficiency anemia, unspecified iron deficiency anemia type Take 1 tablet (325 mg) by mouth in the morning. Take with meals. Do not crush, chew, or split.. 90 tablet 1 05/30/2024 08/28/2024 ActiveStart: 11-21-2023 End: 53-00-5566plle 1 tablet by mouth at mealtimeferrous sulfate 325 (65 Fe) MG tablet Indications: Iron deficiency anemia, unspecified iron deficiency anemia type Take 1 tablet (325 mg) by mouth in the morning. Take with meals. 90 tablet 1 11/21/2023 02/19/2024 Activegabapentin 300 mg oral capsule (20 sources)Anti-epileptic AgentStart: 03-26-2023 End: 85-86-7350dhro 1 capsule by mouth in the morninggabapentin (Neurontin) 300 MG capsule Indications: Phantom pain Take 1 capsule (300 mg) by mouth inthe morning and 1 capsule (300 mg) before bedtime. 180 capsule 1 05/28/2024 Active Start: 09-92-3541zkhj 1 mg by mouth three times dailygabapentin 100 mg Cap mg cap(s), Oral, TID, Refills(s) 0 Start Date: 03/28/21 Status: Ordered Repeat number: 1HYDROcodone (2 sources)Opioid AgonistStart: 61-04-3964xqhiosylglb Oral, Refills(s) 0 Start Date: 03/28/21 Status: OrderedIron 100 Plus (1 source)Start: 06-58-1221Xduz 100 Plus Oral, Daily, Refill(s) 0 Start Date: 03/28/21 Status: OrderedIron Chews (4 sources)Start: 25-63-9257ctyu 1 mg by mouth once dailyIron Chews mg, Oral, Daily, Refills(s) 0 Start Date: 12/01/22 Status: Ordered Repeat number: 1Start: 09-23-1818qvgv 1 mg by mouth once dailyIron Chews mg, Oral, Daily, Refills(s) 0 Start Date: 12/01/22 Status: Orderedlosartan potassium 25 mg oral tablet (20 sources)Angiotensin 2 Receptor BlockerStart: 03-16-2023 End: 98-31-7024zrmm 1 tablet by mouth every other daylosartan (Cozaar) 25 MG tablet Take 25 mg by mouth every other day 1 tablet by mouth every other day 03/16/2023 ActiveStart: 03-16-2023 End: 64-63-6166ppoa 1 tablet by mouth every weeklosartan (Cozaar) 25 MG tablet Take 25 mg by mouth 1 (one) time per week 0 03/16/2023 03/26/2024 ActiveStart: 66-43-1069lhxq 1 mg by mouth once dailylosartan 25 mg Tab mg tab(s), Oral, Daily, Refills(s) 0 Start Date: 12/10/20 Status: Ordered Repeat number: 1 metroNIDAZOLE 500 mg oral tablet (1 source)Nitroimidazole AntimicrobialStart: 51-30-6951oyxq 1 mg by mouth three times dailyMetroNIDAZOLE 500 mg Tab mg tab(s), Oral, TID, Refills(s) 0 Start Date: 03/28/21 Status: Pzggrgz73 hr mirabegron 50 mg extended release oral tablet (13 sources)beta3-Adrenergic AgonistStart: 08-18-2024 End: 22-91-6278ffov 1 tablet by mouth once dailyMyrbetriq 50 MG 24 hr tablet Take 50 mg by mouth Daily 08/18/2024 Fkudgz47 hr oxybutynin chloride 5 mg extended release oral tablet (8 sources)Cholinergic Muscarinic AntagonistStart: 99-52-2072thwz 1 tablet by mouth every twenty-four hours at bedtimeoxybutynin XL (Ditropan-XL) 5 MG 24 hr tablet Take 1 tablet by mouth at bedtime 0 09/02/2022 ActiveStart: 12-12-2021 take 1 tablet by mouth at bedtimeoxybutynin 5 mg ER Tab 5 mg = 1 tab(s), Oral, Bedtime, # 30 tab(s), Refills(s) 11, Pharmacy: [facility] [id number], 185, cm, 12/12/21 12:02:00 EDT, Height/Length Dosing, 74.8, kg, 12/12/21 12:02:00 EDT, Weight Dosing Start Date: 12/12/21 Status: Orderedtamsulosin hydrochloride 0.4 mg oral capsule (20 sources)alpha-Adrenergic BlockerStart: 01-33-4098jywq 1 capsule by mouth twice dailytamsulosin 0.4 mg Cap 0.4 mg = 1 cap(s), Oral, BID, # 180 cap(s), Refills(s) 3, Pharmacy: [facility] [id number], 185, cm, 08/17/23 9:39:00 EDT, Height/Length Dosing, 74, kg, 08/17/23 9:39:00 EDT, Weight Dosing Start Date: 02/12/24 Status: Ordered Quantity: 180.0 Unit: cap(s) Repeat number: 4Start: 37-20-3321loxd 1 capsule by mouth twice dailytamsulosin 0.4 mg Cap 0.4 mg = 1 cap(s), Oral, BID, # 180 cap(s), Refills(s) 3, Pharmacy: [facility], 185, cm, 12/01/22 9:15:00 EDT, Height/Length Dosing, 74.6, kg, 12/01/22 9:15:00 EDT, Weight Dosing Start Date: 01/22/23 Status: OrderedStart: 35-38-9698txcs 1 capsule by mouth twice dailytamsulosin 0.4 mg Cap 0.4 mg = 1 cap(s), Oral, BID, # 180 cap(s), Refills(s) 3, Pharmacy: [facility] ([facility]), 185, cm, 12/12/21 12:02:00 EDT, Height/Length Dosing, 74.8, kg, 12:02:00 EDT, Weight Dosing Start Date: 01/20/22 Status: OrderedStart: 41-99-0468kobc 1 capsule by mouth twice dailytamsulosin 0.4 mg Cap 0.4 mg = 1 cap(s), Oral, BID, # 180 cap(s), Refills(s) 3, Pharmacy: [facility], 185, cm, 12/10/20 11:18:00 EDT, Height/Length Dosing, 75.4, kg, 12/10/20 11:18:00 EDT, Weight Dosing Start Date: 12/10/20 Status: Orderedtake 1 capsule by mouth every twenty-four hours in the morningtamsulosin (Flomax) 0.4 MG 24 hr capsule Take 1 capsule by mouth in the morning. ActiveVitamin B1 (1 source)Start: 90-77-2939Mnitwso B1 Daily, Refills(s) 0 Start Date: 03/28/21 Status: Orderedvitamin B12 (19 sources)Vitamin H95Obzkh: 59-83-1857Tgchjto B-12 Refills(s) 0 Start Date: 8/18/23 Status: Ordered Repeat number: 1Start: 68-82-9147Bhbsjfu B-12 Refills(s) 0 Start Date: 12/01/22 Status: Ordered End: 18-73-8329cage 1 tablet by mouth in the morningcyanocobalamin (Vitamin B- 12) 1000 MCG tablet Take 1 tablet by mouth in the morning. 05/28/2024 Disc ontinued Completed/Discontinued Medications MedicationDrug Class(es)DatesSig (Normalized)Sig (Original)doxycycline hyclate 100 mg oral capsule (1 source)Tetracycline-class DrugStart: 58-29-8934qzlt 1 capsule by mouth once dailydoxycycline hyclate 100 mg Cap 100 mg = 1 cap(s), Oral, Daily, Take 1 pill the day before the procedure and 1 pill after the procedure, # 2 cap(s), Refills(s) 0, Pharmacy: [id number], 185, cm, 03/28/21 13:13:00 EST, Height/Length Dosing, 75.4, kg, 03/28/21 13:13:00 EST, We... Start Date: Status: Orderedfluticasone 0.05 mg/inh Nasal [place] (6 sources)Start: 89-95-7694nzll 1 spray(s) nasal route once dailyfluticasone 0.05 mg/inh Nasal [place] Refill(s) 0, 16 gm, SPRAY 1 SPRAY INTO EACH NOSTRIL EVERY DAY Start Date: 02/13/22 Status: Ordered Repeat number: 1Start: 02-13-2022 take 1 spray(s) nasal route once dailyfluticasone 0.05 mg/inh Nasal [place] Refill(s) 0, 16 gm, SPRAY 1 SPRAY INTO EACH NOSTRIL EVERY DAY Start Date: 02/13/22 Status: Ordered Problems Active Problems Problem ClassificationProblemDateDocumented DateEpisodic/ChronicAortic; peripheral; and visceral artery aneurysms (20 sources)Thoracic aortic ectasia; Translations: [Aneurysm of ascending aorta] Onset: 82-91-477186076733-35-5607VtawrjpHuhkycq dysrhythmias (20 sources)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; Translations: [Unspecified atrial fibrillation]Onset: 02-11-2016 Resolved: 43-36-0099FbcvxyqJxlxsmitg hypertension (20 sources)Hypertensive disorder; Translations: [Essential (primary) hypertension]Onset: 02-02-2021 Resolved: 463038-55-5186UuicsbwSzgecnshlzp of prostate (20 sources)Benign prostatic hypertrophy with outflow obstruction; Translations: [Benign prostatic hyperplasia with lower urinary tract symptoms]Onset: 617453-96-4324RgyikttIkfavdessjruy gastroenteritis (7 sources)Gastroenteritis; Translations: [Noninfective gastroenteritis and colitis, unspecified]Onset: 482962-58-3086XogtogwuUxsbqwbsjnr deficiencies (20 sources)Vitamin D deficiency; Translations: [Vitamin D deficiency, unspecified]Onset: 083956-24-1941DpffywmIvba wounds of extremities (20 sources)Amputated right lower limb above knee; Translations: [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, initial encounter] Onset: 955190-20-3803LznxqjzHbvqtxpzduqfta (8 sources)Dizghgwkm45-73-8665WglheokLwwvd diseases of kidney and ureters (1 source)Urinary tract obstruction; Translations: [Other obstructive and reflux uropathy]Onset: 81-93-3998PjgdrllaQdebd ear and sense organ disorders (20 sources)Hearing loss; Translations: [Unspecified hearing loss, unspecified ear]Onset: 851361-11-2692WguytqxRhwzi injuries and conditions due to external causes (2 sources)History of falling; Translations: [History of falling]Onset: 41-32-5303PejwjjytUydda lower respiratory disease (1 source)Shortness of breath; Translations: [SHORTNESS OF BREATH]Onset: 56-27-5296EeplsuvwWgbqo nervous system disorders (20 sources)Phantom pain; Translations: [Phantom limb syndrome with pain]Onset: 832428-40-1030HriiirfNxvim nervous system disorders (20 sources)Phantom limb syndrome with pain; Translations: [Phantom limb syndrome with pain]Onset: 02-06-2019 Resolved: 618372-65-2475WxigyfoXpjni nervous system disorders (2 sources)Unsteadiness on feet; Translations: [Unsteadiness on feet]Onset: 55-84-3016MxcecgzuNyjdbqhmo heart disease (20 sources)Pulmonary hypertension; Translations: [Pulmonary hypertension, unspecified]Onset: 987059-16-4610EvyezvtItfiruda enteritis and ulcerative colitis (20 sources)Crohn's disease; Translations: [Crohn's disease of small intestine] Onset: 697093-46-8228VkyzpxkFtbhwkkhtqtd (1 source)CONTACT W/AND (SUSP) EXPOS COVID-19; Translations: [CONTACT W/AND (SUSP) EXPOS COVID-19]Onset: 08-80-2301Aoaxzlokzehp (1 source)Aneurysm of the ascending aorta, without rupture; Translations: [Aneurysm of the ascending aorta, without rupture]Onset: 03-31-2024 Past or Other Problems Problem ClassificationProblemDateDocumented DateEpisodic/ChronicDeficiency and other anemia (20 sources)Iron deficiency anemia; Translations: [Iron deficiency anemia, unspecified]Onset: 327243-12-3258YvtckcufQujtbhgpqukup symptoms and ill- defined conditions (20 sources)Blood in urine; Translations: [Gross hematuria]Onset: 09-16-2021 EpisodicMood disorders (20 sources)Mood disordersOnset: 213311-29-6815Loamvdfclqm deficiencies (20 sources)Deficiency of other specified B group vitamins; Translations: [Cobalamin deficiency]Onset: 397618-12-0750PixxpxdsNrws wounds of extremities (20 sources)Amputated left lower limb above knee; Translations: [Complete traumatic amputation at level betweenleft hip and knee, initial encounter]Onset: 2023 Resolved: 406309-31-5102KyvsjelIncyi aftercare (1 source)Other skilled nursing (current) drug therapy; Translations: [OTH USP CURRENT DRUG THERAPY]Onset: 98-67-5899VrfgootvIytfz non-epithelial cancer of skin (20 sources)Basal cell carcinoma of back; Translations: [Basal cell carcinoma of skin of other part of trunk]Onset: 274407-24-0588JhaailbaSqces screening for suspected conditions (not mental disorders or infectious disease) (20 sources)Raised prostate specific antigen; Translations: [Elevated prostate specific antigen [PSA]]Onset: 587084-38-6092GukccjuqEbahc upper respiratory disease (3 sources)Nasal congestion; Translations: [NASAL CONGESTION]Onset: 09-17-2021 EpisodicOther upper respiratory infections (2 sources)Acute upper respiratory infection, unspecified; Translations: [Acute sinusitis, unspecified]Onset: 77-01-3195WbovkyznVebeckgshxtwka care; fitting of prostheses; and adjustment of devices (20 sources)Follow-up status; Translations: [Encounter for fitting and adjustment of unspecified external prosthetic device]Onset: EpisodicResidual codes; unclassified (20 sources)H/O: anticoagulant therapy; Translations: [Personal history of other drug therapy]Onset: 647221-18-1984GbgfgvtgHvxzwdaqd and history of mental health and substance abuse codes (1 source)Personal history of nicotine dependence; Translations: [PERSONAL HISTORY OF NICOTINE DEPEND]Onset: 57-06-8407IobgsyenOmqmrclbqagi (1 source)Aneurysm of the ascending aorta, without rupture; Translations: [Aneurysm of the ascending aorta, without rupture]Onset: 03-31-2024 Results Test NameValueInterpretationReference RangeFacilityALL CBC WITH AUTO DIFFon 80-49-0726QLGKAIHLN ABSOLUTE AUTO0.1NOM[facility] HealthcareBasophils/100 WBC (Bld)0.8 % 0.2 [...] HealthcareMCH (RBC) [Entitic mass]29.1 pg25.9 - 34.0 pgReynolds County General Memorial HospitalHC (RBC) [Mass/Vol]32.5 g/dL29.9 - 35.2 g/dLReynolds County General Memorial HospitalV (RBC) [Entitic vol]89.4 fL80.0 - 94.0 fLMoberly Regional Medical CenterMONOCYTES ABSOLUTE AUTO0.4Mober[facility] Medical CenterMonocytes/100 WBC (Bld)6.8 % 1.7 - 12.0 %[facility] CenterNEUTROPHILS ABSOLUTE AUTO4.5[facility] Neutrophils/100 WBC (Bld)70 %43.0 - 75.0 %[facility] Medical CenterPlatelet mean volume (Bld) [Entitic vol]10.3 fL9.5 - 13.5 fLMoberly Regional Medical CenterTB EO #0.2[facility] CCU486WJBDMercy Hospital St. Louis RBC3.78LowChildren's Mercy Hospital WBC6.4NOSaint Luke's East Hospital CLINISYNCMoberly Regional Medical CenterUrology Office/Clinic Noteon [id number] Office/Clinic NoteUrology Office/Clinic Note Chief Complaint pt [...] Contact Information MILKA OROZCO, Joy Gutierrez, URL [address] [place] [address] [place] [address] Additional Instructions: 6 mos Patient Education Urinary [...] PSA Gross hematuria Hematuria, microscopic Hx of skilled nursing use of blood thinners Hypertension Hypertensive disorder [...] mg oral tablet fluticasone 0.05 mg/inh Nasal [place] gabapentin 100 mg Cap, Oral, TID Iron [...] virus vaccine, inactivated 01/09/2022 Recorded SARS-CoV-2 (COVID-19) mRNAMUL.ORD![id number] 01/09/2022 Recorded SARS-CoV-2 (COVID-19) mRNA BNT-162b2 vax 03/04/2021 Recorded influenza virus vaccine, inactivated 02/23/2021 Recorded SARS-CoV-2 (COVID-19) mRNA-1273 vaccine 06/22/2020 Recorded SARS-CoV-2 (COVID-19) mRNA-1273 vaccine 05/24/2020 Recorded (more content not included)...NormalUniversity Hospitals Portage Medical CenterComment on above: Result Comment: Electronically Signed By: Joy ZHANG MD\.br\Date and Time Signed: 11/24/24 13:15 EDT\.br\Electronically Co-Signed By: Kristie Squires\.br\Date and Time Co-Signed: 11/24/24 13:12 EDTUrine Cytology ([facility])on 90-49-1510Cbwwfloavvp exam Cytology (U) [Interp]Diagnosis InfoInvalid Interpretation [facility]field HospitalComment on above:Result Comment: A:Urine,Urine:Voided Interpretation - Adequate cellularity for evaluation. CPT 70469 MicroScopic Description - Adequacy - Gross Description Site ID:A color Yellow fixative Alcohol Specimen designated Urine received in alcohol preservative and labeled with the patient???s name, consists of 100ml clear yellow fluid. Electronically signed by : on: 08/21/2024 13:07:55Performed By: #### [id number] #### [facility] [address], [place] [address]Fsnzizifsz Visit Summaryon 74-19-7288Hrnxcndgcu Visit Summary Ambulatory Visit Summary ROBIN PAZ [...] B-12) fluticasone nasal (fluticasone 0.05 mg/inh Nasal [place]) gabapentin (gabapentin 100 mg Cap) losartan (losartan [...] [facility] [address], [place] [phone] Medications What How Much When Why Instructions New mirabegron (mirabegron 50 mg oral tablet, extended release) 1 Tablets By Mouth Every day Nocturia Duration: 30 Days Refills: 11 Pickup at [facility] [id number] Unchanged tamsulosin (tamsulosin 0.4 mg Cap) 1 Capsules By Mouth 2 times a day Unchanged apixaban (Eliquis 2.5 mg oral tablet) Contact prescribing physician if questions or concerns Unchanged carbonyl iron (Iron Chews) By Mouth Every day Contact prescribing physician if questions or concerns Unchanged cyanocobalamin (Vitamin B-12) Contact prescribing physician if questions or concerns Unchanged fluticasone nasal (fluticasone 0.05 mg/ inh Nasal [place]) 16 gm, SPRAY 1 SPRAY INTO EACH NOSTRIL EVERY DAY Contact prescribing physician if questions or concerns Unchanged gabapentin (gabapentin 100 mg Cap) By Mouth 3 times a day Contact prescribing physician if questions or concerns Unchanged losartan (losartan 25 mg Tab) By Mouth Every day Contact prescribing physician if questions or concerns Pharmacy Information [facility] [id number]: [address], [place] [phone] [phone] Allergies dicloxacillin (Other) penicillins (Unknown) Problems Ongoing - Any problem that you are currently receiving treatment for. Arthritis Atrial fibrillation BPH with urinary obstruction Crohn's disease Elevated PSA Gross hematuria Hematuria, microscopic Hx of skilled nursing use of blood thinners Hypertension Hypertensive disorder [...] sweeteners, citrus, tomato-base (more content not included)... NormalUniversity Hospitals Portage Medical CenterUrine Cytology ([facility])on [id number] Method of ExtractionVoidedNoOhioHealth Arthur G.H. Bing, MD, Cancer CenterComment on above:Performed By: #### [id number] #### [facility] [address], [place] [address]RF Number of Ehsb5Jwfgrzd Interpretation CodeUniversity Hospitals Portage Medical CenterComment on above:Performed By: #### [id number] #### [facility] [address], [place] [address]JK SpecimenUrineNormGlenbeigh HospitalComment on above:Performed By: #### [id number] #### Daiz [facility] [address], [place] [address]PZ Type of ServiceTechnical OnlyNormGlenbeigh HospitalComment on above:Performed By: #### [id number] #### Joe [facility] [address], [place] [address]Fychxlz Office/Clinic Noteon 31-36-1318Vimqtok Office/Clinic NoteUrology Office/Clinic Note Chief Complaint 1 year follow up HPI Staff 89 year old male patient here for one year follow up. Previous DX: BPH with urinary obstruction, gross hematuria. 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 Medications Eliquis 2.5 mg oral tablet fluticasone 0.05 mg/inh Nasal [place] gabapentin 100 mg Cap, Oral, TID Iron [...] age 35 Years. Hous (more content not included)...[facility]wood HospitalComment on above:Result Comment: Electronically Signed By: Joy ZHANG MD\.br\Date and Time Signed: 08/18/24 10:51 EDT\.br\Electronically Co-Signed By: Kristie Squires\.br\Date and Time Co-Signed: 08/18/24 10:38 EDT\.br\Electronically Co-Signed By: Kristie Squires\.br\Date and Time Co-Signed: 08/18/24 10:40 EDTALL CBC WITH AUTO DIFFon 64-20-3242YXTWUXUVV ABSOLUTE AUTO0.1NOMS HealthcareBasophils/100 WBC (Bld)0.8 %0.2 - 2.0 %NOMS HealthcareEosinophils/100 WBC (Bld)3.9 %0.9 - 7.0 % [facility] CenterErythrocyte distribution width (RBC) [Ratio]13.6 %11.0 - 15.0 % [facility] CenterHematocrit (Bld) [Volume fraction]32.5 %Low42.0 - 54.0 %[facility] CenterHemoglobin (Bld) [Mass/Vol]10.4 g/dLLow14.0 - 18.0 g/dLMoberly Regional Medical Center IMMATURE GRANULOCYTES ABS AUTO0.02NOSaint Luke's East HospitalImmature granulocytes/100 WBC (Bld)0.3 %0.0 - 0.5 %[facility] CenterInterpretation and review of laboratory resultsAbnormalMoberly Regional Medical CenterLYMPHOCYTES ABSOLUTE QSVL9AkoKDWK [facility] Lymphocytes/100 WBC (Bld)14.3 %Low20.5 - 60.0 %[facility] HospitalH (RBC) [Entitic mass]28.8 pg25.9 - 34.0 pgReynolds County General Memorial HospitalHC (RBC) [Mass/Vol]32 g/dL29.9 - 35.2 g/dLReynolds County General Memorial HospitalV (RBC) [Entitic vol]90 fL80.0 - 94.0 fLMoberly Regional Medical CenterMONOCYTES ABSOLUTE AUTO0.5NOSaint Luke's East HospitalMonocytes/100 WBC (Bld)6.6 % 1.7 - 12.0 %[facility] CenterNEUTROPHILS ABSOLUTE AUTO5.4NOMS [facility] Neutrophils/100 WBC (Bld)74.1 %43.0 - 75.0 %[facility] CenterPlatelet mean volume (Bld) [Entitic vol]9.9 fL9.5 - 13.5 fLMoberly Regional Medical CenterTB EO #0.3[facility] TBH FUN436YTOOMercy Hospital St[facility] RBC3.61LowNOMercy Hospital St. [facility] WBC7.3NOSaint Luke's East Hospital CLINISYNCSHRINERS HOSPITALS FOR CHILDREN HealthcareOffice Visiton 90-62-2616Uqrmuu-up [id number] Robin Paz 1935 M Date Provider Department Center 03/31/2024 DANGELO KINSEY Hos Family History Problem Relation Age of Onset Coronary artery disease Paternal Grandmother Family Status - Relation Status Age at Paternal Grandmother Level of Service:15565 OR OFFICE/OUTPATIENT ESTABLISHED MOD MDM 30 [facility] HospitalCA ECHO DOPPLER COMPLETEon 29-78-6136[place] [address] Cardiology Report Signed Patient: ROBIN PAZ MR#: [id number] : 1935 Acct:[id number] Age/Sex: 88 / M ADM Date: 02/27/24 Loc: CARD Attending Dr: DANGELO JAEGER Ordering Physician: DANGELO JAEGER Date of Service: 02/27/24 Procedure(s): CA echo doppler complete Accession Number(s): [id number] cc: Luciana Nicolas SEISMOGRAPH SHOOTER; DANGELO JAEGER Patient Name: ROBIN PAZ MR#: [id number] : 1935 Exam Date: 02/27/2024 Ordering Doctor: [...] content not included)...TBHRadiology, Radiologist, - 02/27/2024 [place] [address] Cardiology Report Signed Patient: ROBIN PAZ MR#: [id number] : 1935 Acct:[id number] Age/Sex: 88 / M ADM Date: 02/27/24 Loc: CARD Attending Dr: DANGELO JAEGER Ordering Physician: DANGELO JAEGER Date of Service: 02/27/24 Procedure(s): CA echo doppler complete Accession Number(s): [id number] cc: Luciana Nicolas NP; DANGELO JAEGER Patient Name: ROBIN PAZ MR#: [id number] : 1935 Exam Date: 02/27/2024 Ordering Doctor: [...] on 02/27/2024 at 16:52 Dictated By: DANGELO JAGEER Signed By: 02/27/241652 DD/ 51 TD/TT: Roofing Apprentice: [facility] CenterRadiology Study observation (narrative)[facility] ECHO DOPPLER COMPLETEOrdered By: Radiologist Radiology on 90-08-4328[facility] Work Phone: tbh UA (CLEAN/CATCH) MICROSCOPIC IF INDICATEon 51-32-3060KDKWAXMSZ URINENegativeNEGATIVENOMS HealthcareBLOOD URINETRACE-I NEGATIVENOMS HealthcareClarity (U)CLEARCLEARNOMS HealthcareColor (U)LT. YELLOW YELLOWNOMS HealthcareGLUCOSE URINE UANegativeNEGATIVE mg/dLNOMS Healthcare Ketones Ql (U)NegativeNEGATIVE mg/dLNOMS HealthcareLeukocyte esterase Test strip Ql (U)NegativeNEGATIVENOMS HealthcareNITRITE URINENegativeNEGATIVENOMS HealthcarepH (U)7.5 [pH]5.0 - 9.0NOMS HealthcarePROTEIN URINENegativeNEG/TRACE mg/dLNOMS HealthcareSPECIFIC GRAVITY URINE1.0151.005 - 1.025NOMS HealthcareURINE MICROSCOPIC INDICATEDYESNOMS HealthcareUROBILINOGEN URINE0.2 EU/dL0.2 - 1.0 EU/dLNOMS HealthcareCLINISYNCNOMS HealthcareECHOCARDIO M/2D COMPLETEon 44-53-3107LGCDLEWXYD M/2D COMPLETEPatient: ROBIN PAZ Exam Date: 06/21/2022 : 1935 Gender:M Ordering : DR DANGELO JAEGER M.D. 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 on 06/22/2022 at 13:32[facility] XRay CREon 55-63-5707Kqgfbzkjyy [Mass/Vol]0.8 mg/dLNormal0.6-1.3 [facility] HospitalComment on above:Result Comment: ER/ESD physician is notified/shown all ISTAT results. Critical values may be confirmed by laboratory testing if deemed necessary by ER attending doctor.Performed By: #### ISCRE #### [facility] [address] [place] [address] Point of Care testing ,ISTAT GFR (> 60NormSt. Mary's Medical CenterComment on above:Result Comment: GFR estimated reference range: According to KDOQI guidelines, <60 ml/min/1.73m2 is sufficient to diagnose a patient with chronic kidney disease. PERFORMED BY: [place] [address] PATHOLOGIST DRIER BELT CONVEYOR DORINDA FISHER M.D.Performed By: #### ISCRE #### [address] Point of Care testing ,ISTAT GFR (Non- Am> 60NormSt. Mary's Medical CenterComment on above:Performed By: #### ISCRE #### [address] Point of Care testing ,MR prostate wo/w conon 33-22-2104QV prostate wo/w [facility] [place] [address] [place] [address] MRI Report Signed Patient: Robin Paz MR#: [id number] : 1935 Acct:[id number] Age/Sex: 86 / M ADM Date: 03/22/22 Loc: Room: Type: [facility] Attending Dr: Joy Zhang MD Copies [...] Chahal Jr., D.OFranklin03/22/2022 12:41 PM Dictation Location: [place] [address] Transcribed By: [facility] 03/22/22 1241 Dictated By: Shahbaz Chahal Jr, DO 03/22/22 1228 Signed By: 03/22/22 1241[facility] AUTO DIFFon 10-13-2021 BASO #0.1 103/ulNormal0.0-0.1Kettering HealthComment on above:Performed By: #### CBC #### [facility] [address] [place] [address] [address] Jose SaenzBasophils/100 WBC (Bld)0.8 %Normal0.2-2.0The [facility] Comment on above:Performed By: #### CBC #### [facility] [address] [place] [address] [address] Jose Gracia #0.4 103/ulNormal0.0-0.7The [facility] HospitalComment on above: Performed By: #### CBC #### [facility] [address] [address] [address] Jose Spencerosinophils/100 WBC (Bld)5.8 %Normal0.9-7.0The [facility] Comment on above:Performed By: #### CBC #### [facility] [address] [place] [address] Dr. Joes Spencerrythrocyte distribution width (RBC) [Ratio]13.2 %Yqfeyp02.0-15.[address] [facility] on above:Performed By: #### CBC #### [facility] [address] [place] [address] Dr. Jose SaenzHematocrit (Bld) [Volume fraction]33.3 %Critically low42.0-54.0 The [facility] HospitalComment on above:Performed By: #### CBC #### [facility] [address] [place] [address] Dr. Jose SaenzHemoglobin (Bld) [Mass/Vol]10.6 g/dLCritically low14.0-18.0Kettering HealthComment on above:Performed By: #### CBC #### [facility] [address] [place] [address] Dr. Jose Conn #0.03 10e3/ulNormal0.00-0.03[facility] HealthComveterans affairs medical center on above:Performed By: #### CBC #### [facility] [address] [place] [address] Dr. Jose Conn %0.4 %Normal0.0-0.5[facility] on above: Performed By: #### CBC #### [facility] [address] [place] [address] Dr. Jose HernandezH #1.4 103/ulNormal1.2-3.8The [facility] HospitalComveterans affairs medical center on above:Performed By: #### CBC #### [facility] [address] [place] [address] Dr. Jose Lopesmphocytes/100 WBC (Bld)18.9 %Critically low20.5-60.0[facility] HealthComveterans affairs medical center on above:Performed By: #### CBC #### [facility] [address] [place] [address] Dr. Jose FerrerUAL DIFF REQNONormalThe [facility] HospitalComment on above: Performed By: #### CBC #### [facility] [address] [place] [address] [address] Jose Montejo (RBC) [Entitic mass]29.2 ueCngfyf93.9-34.0The [facility] HospitalComment on above:Performed By: #### CBC #### [facility] [address] [place] [address] Dr. Jose Montejo (RBC) [Mass/Vol]31.8 g/iTNaswlc01.9-35.2The [facility] HospitalComment on above:Performed By: #### CBC #### [facility] [address] [place] [address] Dr. Jose Montejo (RBC) [Entitic vol]91.7 dPYxfanp63.0-94.0The [facility] HospitalComment on above:Performed By: #### CBC #### [facility] [address] [place] [address] Dr. Jose Lin #0.6 103/ulNormal0.3-0.8The [facility] HospitalComment on above:Performed By: #### CBC #### [facility] [address] [place] [address] Dr. Jose Dasocytes/100 WBC (Bld)8.8 %Normal1.7-12.0The [facility] Comment on above:Performed By: #### CBC #### [facility] [address] [place] [address] Dr. Jose Genao #4.7 103/ulNormal1.4-6.5The [facility] HospitalComment on above:Performed By: #### CBC #### [facility] [address] [place] [address] Dr. Jose Regaladoutrophils/100 WBC (Bld)65.3 %Fpxnov67.0-75.0The [facility] HospitalComment on above:Performed By: #### CBC #### [facility] [address] [place] [address] Dr. Jose Higginslet mean volume (Bld) [Entitic vol]11.2 fLNormal9.5-13.5The [facility] HospitalComment on above:Performed By: #### CBC #### [facility] [address] [place] [address] Dr. Jose SaenzPLT276 103/hnNmohln361-308Qwf [facility] HospitalComment on above: Performed By: #### CBC #### [facility] [address] [place] [address] Dr. Jose SaenzRBC3.63 106/ulCritically low4.70-6.10The [facility] HospitalComment on above:Performed By: #### CBC #### [facility] [address] [place] [address] Dr. Jose SaenzWBC7.2 103/ulNormal4.0-11.0The [facility] HospitalComment on above: Performed By: #### CBC #### [facility] [address] [place] [address] Dr. Jose Forrester 14(COMP METB)on 77-61-6665Ptzddul [Mass/Vol]3.3 g/dL Critically low3.4-5.0The [facility] HospitalComment on above:Performed By: #### CMP #### [facility] [address] [place] [address] Dr. Jose SaenzAlbumin/Globulin [Mass ratio]0.9 {ratio}NormalThe [facility] HospitalComveterans affairs medical center on above:Performed By: #### CMP #### [facility] [address] [place] [address] Dr. Jose August [Catalytic activity/Vol]72 U/RBocldk52-456Uts [facility] HospitalComment on above:Performed By: #### CMP #### [facility] [address] [place] [address] Dr. Jose Smith [Catalytic activity/Vol]28 U/TMzkdxi48-26Dse [facility] HospitalComment on above:Performed By: #### CMP #### [facility] [address] [place] [address] Dr. Jose Garsia gap [Moles/Vol]10.0 mmol/LNormalThe [facility] Comment on above:Performed By: #### CMP #### [facility] [address] [address] [address] Jose SaenzAST [Catalytic activity/Vol]21 U/ZKncwah12-47Neh [facility] HospitalComment on above:Performed By: #### CMP #### [facility] [address] [address] [address] Jose SaenzBilirubin [Mass/Vol]0.4 mg/dLNormal0.2-1.0The [facility] Comment on above:Performed By: #### CMP #### [facility] [address] [address] [address] Jose SaenzCalcium [Mass/Vol]8.8 mg/dLNormal8.5-10.1[facility] Comment on above:Performed By: #### CMP #### [facility] [address] [place] [address] [address] Jose SaenzChloride [Moles/Vol]102 mmol/OXjqlrl07-867Xjt [facility] Comment on above:Performed By: #### CMP #### [facility] [address] [address] [address] Jose SaenzCO2 [Moles/Vol]32.0 mmol/AYowumx54.0-32.0[facility] Comment on above:Performed By: #### CMP #### [facility] [address] [address] [address] Jose SaenzCreatinine [Mass/Vol]0.82 mg/dLNormal0.70-1.30The [facility] HospitalComment on above:Performed By: #### CMP #### [facility] [address] [address] [address] Jose SpencerGFR-AF VENEZUELAN>60Normal>=60The [facility] HospitalComment on above:Performed By: #### CMP #### [facility] [address] [address] [address] Jose SpencerGFR-NON AF VENEZUELAN>60Normal>=60The [facility] HospitalComment on above:Performed By: #### CMP #### [facility] [address] [address] [address] Jose SaenzGlobulin (S) [Mass/Vol]3.7 g/dLNormKettering Health Main CampusComment on above:Performed By: #### CMP #### [facility] [address] [address] [address] Jose SaenzGlucose [Mass/Vol]86 mg/dGYxothi93-773Wal [facility] Comment on above:Performed By: #### CMP #### [facility] [address] [address] [address] Jose SaenzPotassium [Moles/Vol]5.0 mmol/LNormal3.5-5.1The [facility] Comment on above:Performed By: #### CMP #### [facility] [address] [place] [address] [address] Jose SaenzProtein [Mass/Vol]7.0 g/dLNormal6.4-8.2The [facility] Comment on above:Performed By: #### CMP #### [facility] [address] [address] [address] Jose SaenzSodium [Moles/Vol]139 mmol/FDyisil714-524AdrKettering Health Comment on above:Performed By: #### CMP #### [facility] [address] [address] [address] Jose SaenzUrea nitrogen [Mass/Vol]11.0 mg/dLNormal7.0-18.0The [facility] HospitalComment on above:Performed By: #### CMP #### [facility] [address] [address] [address] Jose Aguilar nitrogen/Creatinine [Mass ratio]13.4 mg/mgNoVeterans Health AdministrationComment on above:Performed By: #### CMP #### [facility] [address] [address] [address] Jose SaenzUA RANDOM W/MICROSCOPICon 72-27-5284RZPJNGACHFAAQBgpntwffSIMC SEENThe [facility] HospitalComment on above:Performed By: #### UAMIC ####[facility] Tg[address] [place], [place] [address]Dr. Yilan Saenz Bilirubin Ql (U)NegativeNormalNEGATIVEKettering HealthComment on above: Performed By: #### UAMIC ####[facility] F[address]ye[address] [place], [place] [address]Dr. Yilan ChangCASTNONE SEENNormalNONE SEENThe [facility] HospitalComment on above:Performed By: #### UAMIC ####[facility] [address]acl[address] [place], [place] [address]Dr. Yilan ChangClarity (U) CLEARNormalCLEARKettering HealthComment on above:Performed By: #### UAMIC ####[facility] Wuajmwlhin[address] [place], [place] [address]Dr. Yilan ChangColor (U)LT. YELLOWNormalYELLOWKettering HealthComment on above: Performed By: #### UAMIC ####[facility] [address]oxki[address] [place], [place] [address]Dr. Yilan ChangCrystals LM Nom (Urine sed)NONE SEEN NormalNONE SEENKettering HealthComment on above:Performed By: #### UAMIC ####[facility] Krpaetmfen[address] [place], [place] [address]Dr. Yilan ChangEpithelial cells LM Ql (Urine sed)RARENormalNONE SEEN /RAREThe [facility] HospitalComment on above:Performed By: #### UAMIC ####[facility] Mrownebssl[address] [place], [place] [address]Dr. Yilan ChangGlucose Ql (U) NegativeNormalNEGATIVEKettering HealthComment on above:Performed By: #### UAMIC ####[facility] [address] [place], [place] [address]Dr. Yilan ChangHemoglobin Ql (U)NegativeNormalNEGATIVEOhio State East Hospital on above:Performed By: #### UAMIC ####[facility] C[address]crxgkfz[address] [place], [place] [address]Dr. Yilan ChangKetones Ql (U)NegativeNormal NEGATIVEKettering HealthComment on above:Performed By: #### UAMIC ####[facility] [address]zgrqabya[address] [place], [place] [address]Dr. Yilan ChangLEUKOCYTESNegativeNormalNEGATIVEThe [facility] HospitalComment on above:Performed By: #### UAMIC ####[facility] X[address]hij[address] [place], [place] [address]Dr. Yilan ChangMUCOUSNONE SEENNormalNONE SEENThe [facility] HospitalComment on above:Performed By: #### UAMIC ####[facility] Mozxocjmiw[address] [place], [place] [address]Dr. Yilan ChangNitrite Ql (U) NegativeNormalNEGATIVEThe [facility] HospitalComment on above:Performed By: #### UAMIC ####[facility] [address]eyy[address] [place], [place] [address]Dr. Yilan ChangpH (U)6.5 [pH]Normal5-9The [facility] HospitalComment on above:Performed By: #### UAMIC ####[facility] [address]cw[address]wiv[address] [place], [place] [address]Dr. Yilan ChangRBCNONE SEENAbnormal0-2The [facility] HospitalComment on above:Performed By: #### UAMIC ####[facility] F[address]efgbufm[address] [place], [place] [address]Dr. Yilan ChangSPEC GRAVITY <=1.310Ahshvrcg3.005-<=1.025The [facility] HospitalComment on above:Performed By: #### UAMIC ####[facility] [address]mta[address] [place], [place] [address]Dr. Yilan ChangUA PROTEINNegativeNormalNEGATIVE/ TRACEThe [facility] Comment on above:Performed By: #### UAMIC ####[facility] [address] [place], [place] [address]Dr. Yilan ChangUrobilinogen Qn (U)0.2 {Sammy'U}/dLNormal0.2 - 1.0The [facility] HospitalComment on above:Performed By: #### UAMIC ####[facility] [address] [place], [place] [address]Sz. Jose SaenzWBCNONE SEENNormalNONE SEENThe [facility] HospitalComment on above:Performed By: #### UAMIC ####[facility] [address] [place], [place] [address]Vz. Jose SaenzVITAMIN B12on 69-27-1640Lphvbrwbo (Vitamin B12) [Mass/Vol]405.0 pg/cLJubtqb977.0-986.0The [facility] HospitalComment on above:Performed By: #### VITB12, PSASC #### [facility] [address] [place], [place] [address] Dr. Jose SaenzCovid-19 PCR (CVDTBH)on 79-30-7276EGPE-CoV-2 (COVID-19) RNA DANIKA+probe Ql (Unsp spec)Not detectedNormalNOT DETECTEDThe [facility] Comment on above:Result Comment: When diagnostic [...] for this test is supported by the [place] of Health and Human Service's declaration that [...] no longer be used).Performed By: #### CVDTBH ####[facility] [address] [place] [address]DrFranklin SaenzGROUP A STREP CULTUREon 09-17-2021. pyogenes Ag Ql (Unsp spec)Culture Observations: NEGATIVE FOR GROUP A STREPTOCOCCUS.NormalThe [facility] HospitalComment on above: Performed By: #### GRASTCX, SSCRN #### [facility] [address] [address] [address] Jose SaenzSTREPT SCREENon 33-60-6258WKYDW SCREEN ANegativeNormalNEGATIVEThe [facility] HospitalComveterans affairs medical center on above:Performed By: #### GRASTCJessica SSCRN #### [facility] [address] [address] [address] Jose Campo AUTO DIFFon 87-87-4288RBIN #0.1 103/ulNormal0.0-0.1The [facility] HospitalComment on above:Performed By: #### CBC ####[facility] [address]thc[address] [place], [place] [address]DrJordon SaenzBasophils/100 WBC (Bld)1.1 %Normal0.2-2.0The [facility] HospitalComment on above:Performed By: #### CBC ####[facility] C[address]eb[address] [place], [place] [address]DrJordon ChangEO #0.3 103/ulNormal0.0-0.7The [facility] HospitalComment on above:Performed By: #### CBC ####[facility] [address]vjwal[address] [place], [place] [address]DrJordon ChangEosinophils/100 WBC (Bld)5.3 %Normal 0.9-7.0The [facility] HospitalComment on above:Performed By: #### CBC ####[facility] [address]xicvnnjy[address] [place], [place] [address]DrJordon Saenz Erythrocyte distribution width (RBC) [Ratio]13.5 %Tehhlp30.0-15.0The [facility] HospitalComment on above:Performed By: #### CBC ####[facility] Y[address]oca[address] [place], [place] [address]DrJordon SaenzHematocrit (Bld) [Volume fraction]33.9 %Critically low42.0-54.0The [facility] HospitalComment on above:Performed By: #### CBC ####[facility] Q[address]yizdw[address] [place], [place] [address]DrJordon SaenzHemoglobin (Bld) [Mass/Vol]11.1 g/dL Critically low14.0-18.0The [facility] HospitalComment on above:Performed By: #### CBC ####[facility] Hlcrxyieri[address] [place], [place] [address]Dr. Jose DanyIG #0.02 10e3/ulNormal0.00-0.03The [facility] HospitalComment on above: Performed By: #### CBC ####[facility] Ytfpubaath[address] [place], [place] [address]Dr.Jose SaenzIG %0.4 %Normal0.0-0.5The [facility] HospitalComment on above:Performed By: #### CBC ####[facility] Egudmzgyuf[address] [place], [place] [address]Dr.Jose SaenzLYMPH #1.5 103/ulNormal1.2-3.8The [facility] HospitalComment on above:Performed By: #### CBC ####[facility] J[address]cagjuqq[address] [place], [place] [address]Dr. Jose SaenzLymphocytes/100 WBC (Bld)28.5 %Kwqaiy76.5-60.0The [facility] Comment on above:Performed By: #### CBC ####[facility] [address]frpoz[address] [place], [place] [address]Dr.Jose SaenzMANUAL DIFF REQNONormalThe [facility] HospitalComment on above:Performed By: #### CBC ####[facility] K[address]rmprxhem[address] [place], [place] [address]Dr.Jose SaenzNYU LANGONE [facility] (RBC) [Entitic mass]29.7 jlMagdim78.9-34.0The [facility] HospitalComment on above: Performed By: #### CBC ####[facility] Lxcnmgwgkw[address] [place], [place] [address]Dr.Jose SaenzHC (RBC) [Mass/Vol]32.7 g/dLNormal 29.9-35.2The [facility] HospitalComment on above:Performed By: #### CBC ####[facility] [address]jpbavh[address] [place], [place] [address]Dr. Jose SaenzMCV (RBC) [Entitic vol]90.6 kEPdlelx94.0-94.0The [facility] Comment on above:Performed By: #### CBC ####[facility] [address] [place] [address]Dr.Jose SaenzMONO #0.4 103/ulNormal0.3-0.8 The [facility] HospitalComment on above:Performed By: #### CBC ####[facility] Asdmggsqzj[address] [place], [place] [address]Dr.Jose Saenz Monocytes/100 WBC (Bld)7.2 %Normal1.7-12.0The [facility] HospitalComment on above: Performed By: #### CBC ####[facility] Yvgvsxqygp[address] [place], [place] [address]Dr.Jose SaenzNEUT #3.0 103/ulNormal1.4-6.5The [facility] Mercy HospitalComment on above:Performed By: #### CBC ####[facility] [address] [place], [place] [address]Dr.Jose SaenzNeutrophils/100 WBC (Bld)57.5 %Clpsht44.0-75.0The [facility] HospitalComment on above:Performed By: #### CBC ####[facility] Mjardrcias[address] [place], [place] [address]Dr.Jose SaenzPlatelet mean volume (Bld) [Entitic vol]9.8 fLNormal9.5-13.5 The [facility] HospitalComment on above:Performed By: #### CBC ####[facility] Emvcfysk[address] [place], [place] [address]Dr.Jose PtiveTRP473 103/fyFllpwq162-699Pfh [facility] HospitalComment on above:Performed By: #### CBC ####[facility] Eedgmdskwx[address] [place], [place] [address]Dr. Jose SaenzRBC3.74 106/ulCritically low4.70-6.10The [facility] HospitalComment on above:Performed By: #### CBC ####[facility] [address] [address]DrJordon SaenzWBC5.3 103/ulNormal4.0-11.0The [facility] HospitalComment on above:Performed By: #### CBC ####[facility] [address] [phone].Yilan SaenzGLYCOHEMOGLOBIN A1Con 75-65-0644MVR RECOMMENDATIONADA THERAPEUTIC TARGET 6.0 - 7.0 ACTION SUGGESTED > 7.0[facility] HospitalComment on above:Performed By: #### A1C #### [facility] [address] [address] [address] Jose SaenzGlucose [Mass/Vol]120 mg/dLNoVeterans Health AdministrationComment on above:Performed By: #### A1C #### [facility] [address] [address] [address] Jose SaenzHbA1c (Bld) [Mass fraction]5.8 %Normal<=6.0[facility] Comment on above:Performed By: #### A1C #### [facility] [address] [address] [address] Jose SaenzLIPID PROFILEon 97-65-5607DCIL-HDL RATIO NORMSCleveland ClinicComment on above:Result Comment: 3.3 - 4.4 LOW RISK 4.4 - 7.1 AVERAGE RISK 7.1 - 11.0 MODERATE RISK >11.0 HIGH RISKPerformed By: #### CMP, TSH, LIPID ####[facility] [address] [address]DrFranklin SaenzCholesterol [Mass/Vol]177 mg/dLNormal<=200K[facility]tering HealthComment on above:Performed By: #### CMP, TSH, LIPID ####[facility] [address] [address]Dr. Jose Saenz Cholesterol in HDL [Mass/Vol]63 mg/dLCritically wukx68-31Dds [facility] Comment on above:Performed By: #### CMP, TSH, LIPID ####[facility] [address] [address]Dr. Yilan ChangCholesterol in LDL [Mass/Vol]93.8 mg/dLBethesda North HospitalComveterans affairs medical center on above:Performed By: #### CMP, TSH, LIPID ####[facility] [address] [address]Dr. Yilan ChangCholesterol.total/Cholesterol in HDL [Mass ratio]2.8 {ratio}NormalKettering HealthComveterans affairs medical center on above:Performed By: #### CMP, TSH, LIPID ####[facility] K[address] [place], [place] [address]Dr. Yilan ChangHDL NORMAL> or = 60 mg/dl - LOW CARDIOVASCULAR RISK <40 mg/dl - HIGH CARDIOVASCULAR RISKBethesda North HospitalComveterans affairs medical center on above:Performed By: #### CMP, TSH, LIPID ####[facility] Glglpthsxx[address] [place], [place] [address]Dr. Yilan ChangLDL CALC NORMALSEE BELOWNoVeterans Health AdministrationComment on above:Result Comment: <100 mg/dl OPTIMAL 100 - 129 mg/dl NEAR OR ABOVE OPTIMAL 130 - 159 mg/dl BORDERLINE HIGH 160 - 189 mg/dl HIGH >190 mg/dl VERY HIGHPerformed By: #### CMP, TSH, LIPID ####[facility] Qxftnspjcm[address] [place], [place] [address]Dr. Yilan ChangTriglyceride [Mass/Vol]101 mg/dLNormal<=150The [facility] HospitalComveterans affairs medical center on above:Performed By: #### CMP, TSH, LIPID ####[facility] Itb[address]rt[address] [place], [place] [address]Dr. Yilan ChangVLDL CALC20.2 mg/dLBethesda North HospitalComveterans affairs medical center on above:Performed By: #### CMP, TSH, LIPID ####[facility] Hcsvfkkoyf[address] [place], [place] [address]Dr. Yilan ChangPROF 14(COMP METB)on 30-05-0854Ywpwici [Mass/Vol]3.3 g/dLCritically low3.4-5.0The [facility] HospitalComveterans affairs medical center on above:Performed By: #### CMP, TSH, LIPID ####[facility] [address] [address]Dr. Yilan ChangAlbumin/Globulin [Mass ratio]1.0 {ratio}NormalThe [facility] HospitalComment on above:Performed By: #### CMP, TSH, LIPID ####[facility] [address] [address]Dr. Yilan ChangALP [Catalytic activity/Vol]80 U/ZPsqato59-043Wot [facility] HospitalComment on above:Performed By: #### CMP, TSH, LIPID ####[facility] [address] [address]Dr. Yilan ChangALT [Catalytic activity/Vol]22 U/XScbpby19-64Gjp [facility] HospitalComment on above: Performed By: #### CMP, TSH, LIPID ####[facility] [address]wjtsfl[address] [place], [place] [address]Dr. Yilan ChangAnion gap [Moles/Vol]10.1 mmol/L NormalThe [facility] HospitalComment on above:Performed By: #### CMP, TSH, LIPID ####[facility] Y[address]qharcva[address] [place], [place] [address]Dr. Yilan ChangAST [Catalytic activity/Vol]19 U/GLjlube65-91Let [facility] Comment on above:Performed By: #### CMP, TSH, LIPID ####[facility] Mpvvyunv[address] [place], [place] [address]Dr. Yilan ChangBilirubin [Mass/Vol]0.5 mg/dLNormal0.2-1.3The [facility] HospitalComment on above:Performed By: #### CMP, TSH, LIPID ####[facility] [address] [address]Dr. Yilan ChangCalcium [Mass/Vol]8.3 mg/dLCritically low8.5-10.1The [facility] HospitalComment on above:Performed By: #### CMP, TSH, LIPID ####[facility] [address] [address]Dr. Yilan ChangChloride [Moles/Vol]104 mmol/JJaorzd61-897Vgt Magruder Hospitalment on above:Performed By: #### CMP, TSH, LIPID ####[facility] [address]aufv[address] [address]Dr. Yilan ChangCO2 [Moles/Vol]31.5 mmol/LCritically high22.0-30.0The [facility] HospitalComment on above:Performed By: #### CMP, TSH, LIPID ####[facility] [address]shmhfxwq[address] [place], [place] [address]Dr. Yilan ChangCreatinine [Mass/Vol]0.77 mg/dLNormal0.66-1.25The [facility] HospitalComment on above:Performed By: #### CMP, TSH, LIPID ####[facility] Bzxggjuarf[address] [place], [place] [address]Dr. Yilan ChangEGFR-AF VENEZUELAN>60Normal>=60The [facility] Comment on above:Performed By: #### CMP, TSH, LIPID ####[facility] T[address]kvujhb[address] [place], [place] [address]Dr. Yilan ChangEGFR-NON AF VENEZUELAN>60Normal>=60The [facility]ruder Hospitalment on above:Performed By: #### CMP, TSH, LIPID ####[facility] Wphfadrsgu[address] [place], [place] [address]Dr. Silvanalan ChangGlobulin (S) [Mass/Vol]3.2 g/dLNormalThSumma Health Wadsworth - Rittman Medical CenterComveterans affairs medical center on above:Performed By: #### CMP, TSH, LIPID ####[facility] Pchbrupjdj[address] [place], [place] [address]Dr. Yilan Saenz Glucose [Mass/Vol]87 mg/aHBarpdu46-288Qkf [facility] HospitalComment on above: Performed By: #### CMP, TSH, LIPID ####[facility] Abdhriijac[address] [place], [place] [address]Dr. Yilan ChangPotassium [Moles/Vol]4.6 mmol/L Normal3.4-5.0The [facility]uder Hospitalment on above:Performed By: #### CMP, TSH, LIPID ####[facility] [address] [address]Dr. Yiamisha ChangProtein [Mass/Vol]6.5 g/dLNormal6.1-8.2[facility] Comment on above:Performed By: #### CMP, TSH, LIPID ####[facility] [address] [address]Dr. Yilan ChangSodium [Moles/Vol]141 mmol/CBbxqyh173-357Szf [facility] HospitalComment on above: Performed By: #### CMP, TSH, LIPID ####[facility] [address] [address]Dr. Yilan ChangUrea nitrogen [Mass/Vol]9.0 mg/dL Normal7.0-18.0K[facility]tering HealthComment on above:Performed By: #### CMP, TSH, LIPID ####[facility] [address] [address]Dr. Yilan ChangUrea nitrogen/Creatinine [Mass ratio]11.7 mg/mgNoalThSumma Health Wadsworth - Rittman Medical CenterComment on above:Performed By: #### CMP, TSH, LIPID ####[facility] [address] [address]Dr. Jose MorrisHon 78-29-2926CKJ4.304 uIU/mLNormal0.470-4.680[facility] Comment on above:Performed By: #### CMP, TSH, LIPID #### [facility] [address] [address] [address] Jose Wallace Wilson HealthComment on above: Result Comment: <0.34 UIU/ml HYPERTHYROID 0.34-5.60 UIU/ml EUTHYROID >5.60 UIU/ml HYPOTHYROIDPerformed By: #### CMP, TSH, LIPID #### [facility] [address] [address] [address] Jose Heck METABOLIC PANELon 59-94-5169Dsuwhai [Mass/Vol]8.7 mg/dL Normal8.6-10.3The Memorial HospitalComment on above:Performed By: #### [id number] #### [facility] [address] [place] [address], USAChloride [Moles/Vol]104 mmol/GPadybl10-644Grm [facility] HospitalComment on above:Performed By: #### [id number] #### [facility] [address] [place] [address], USACO2 [Moles/Vol]29 mmol/MDwuiry87-55Dkf Memorial HospitalComment on above:Performed By: #### [id number] #### [facility] [address] [place] [address], USACreatinine [Mass/Vol]0.69 mg/dLLow0.70-1.30The [facility] HospitalComment on above:Performed By: #### [id number] #### [facility] [address] [place] [address], USAGFR/1.73 sq M.predicted among blacks MDRD (S/P/Bld) [Vol rate/Area]mL/min/{1.73_m2}Normal>60[facility] Comment on above:Result Comment: Calculation may not be valid for patients over 70 yearsPerformed By: #### [id number] #### [facility] [address] [place] [address], USAGFR/1.73 sq M.predicted among non-blacks MDRD (S/P/Bld) [Vol rate/Area]mL/min/{1.73_m2}Normal>60[facility] Comment on above:Result Comment: Calculation may not be valid for patients over 70 yearsPerformed By: #### [id number] #### [facility] [address] [place] [address], USAGlucose [Mass/Vol]97 mg/wEEtixwj44-870Uqu Memorial HospitalComment on above:Performed By: #### [id number] #### [facility] [address] [place] [address], USAPotassium [Moles/Vol]4.0 mmol/LNormal3.5-5.1The Memorial HospitalComment on above:Performed By: #### [id number] #### [facility] [address] [facility] [place] [address], USASodium [Moles/Vol]139 mmol/NPpgoug650-031Jyz Memorial HospitalComment on above:Performed By: #### 40591 #### [facility] [address] [facility] [place] [place] [address], USAUrea nitrogen [Mass/Vol]10 mg/dLNormal7-25The [facility] HospitalComment on above:Performed By: #### [id number] #### [facility] [address] [facility] [place] [place] [address], USACBC COMPLETE BLOOD COUNTon 00-00-4907Ywqnqewgcrh distribution width (RBC) [Ratio]13.2 %Eimkpz00.5-15.0The Memorial HospitalComment on above:Performed By: #### [id number] #### [facility] [address] [facility] [place] [address], USAHematocrit (Bld) [Volume fraction]34.6 %Low39.0-50.0The Memorial HospitalComment on above:Performed By: #### [id number] #### [facility] [address] [facility] [place] [address], USAHemoglobin (Bld) [Mass/Vol]11.4 g/dLLow13.0-17.0The Memorial HospitalComment on above:Performed By: #### [id number] #### [facility] [address] [facility] [place] [place] [address], USAMCH (RBC) [Entitic mass]29.8 tnQjdwff53.0-33.0The Memorial HospitalComment on above:Performed By: #### [id number] #### [facility] [address] [facility] [place] [place] [address], [facility] – TULSAHC (RBC) [Mass/Vol]32.9 g/xJNdniya99.0-35.0The Memorial HospitalComment on above:Performed By: #### [id number] #### [facility] [address] [place] [address], [facility] HOSPITALMCV (RBC) [Entitic vol]90.3 eWYvqwat37.0-98.0The Memorial HospitalComment on above:Performed By: #### [id number] #### [facility] [address] [place] [address], [facility]AL HOSPITALNucleated RBC/100 WBC (Bld) [Ratio]0 %Normal0-0The Memorial HospitalComment on above:Performed By: #### [id number] #### [facility] [address] [facility] [place] [address], [facility]IONAL HOSPITALPLAT MYK807 10*3/dGGlysxw289-947Mjp Memorial HospitalComment on above:Performed By: #### [id number] #### [facility] [address] [facility] [place] [place] [address], [facility]IONAL HOSPITALRBC (Bld) [#/Vol]3.83 10*6/uLLow4.20-5.70The Memorial HospitalComment on above:Performed By: #### [id number] #### [facility] [address] [place] [address], [facility] HOSPITALWBC (Bld) [#/Vol]6.55 10*3/uLNormal4.00-10.60The Memorial HospitalComment on above:Performed By: #### [id number] #### [facility] [address] [facility] [place] [address], [facility] HOSPITALTYPE AND CROSSMATCHon 46-71-8196PRL INTERPRETATIONANormal The Memorial HospitalComment on above:Performed By: #### [id number] #### [facility] [address] [facility] [address], [facility] HOSPITALRH INTERPRETATIONPosEast Liverpool City HospitalComment on above:Performed By: #### [id number] #### [facility] [address] [facility] [place] [address], [facility] Vital Signs Date TimeVital SignValuePerforming VwivkscugRrrtskri36-35-0079 13:05-0400Body mass index (BMI) [Ratio]22.19 kg/m2Lisa Aichholz SEISMOGRAPH SHOOTER Work Phone: [facility] CenterNtlpdknnke55-87-3913 13:05-0400Body temperature 97.5 [degF]Luciana Aichholz SEISMOGRAPH SHOOTER Work Phone: [phone])[phone] [place], [place] [address]Mhqhchykhq27-16-2317 13:05-0400Body yrwrpy63.21 kgLisa Aichholz SEISMOGRAPH SHOOTER Work Phone: [facility] CenterZgpsfjvsgw22-05-7848 13:05-0400Diastolic blood okaxfszp13 mm[Hg]Luciana Josehholz SEISMOGRAPH SHOOTER Work Phone: [facility] CenterAmgqdonocg16-24-0500 13:05-0400Heart rate78 /min Luciana Aichholz SEISMOGRAPH SHOOTER Work Phone: [facility] CenterNvmriivxti26-28-2082 13:05-0400Respiratory rate18 /minLisa Josehholz SEISMOGRAPH SHOOTER Work Phone: [facility] CenterIbtgtbxwvm00-70-0725 13:05-9231YrW8% (BldA) [Mass fraction]97 %Luciana Josehholz SEISMOGRAPH SHOOTER Work Phone: [facility] CenterYamgwcgajh84-10-0294 13:05-0400Systolic blood llwyocon557 mm[Hg]Luciana Aichholz SEISMOGRAPH SHOOTER Work Phone: [facility] CenterXnndqhvolq24-57-8249 13:28-0400Body mass index (BMI) [Ratio]21.94 kg/m2Lisa Aichholz SEISMOGRAPH SHOOTER Work Phone: [facility] CenterFwofjxkenr12-51-0094 13:28-0400Body temperature 98.1 [degF]Luciana Aichholz SEISMOGRAPH SHOOTER Work Phone: [facility] CenterLiqqyptxwh01-48-9350 13:28-0400Body zcoeyl22.39 kgLisa Carlosholz SEISMOGRAPH SHOOTER Work Phone: [facility] CenterCddxifqnid97-20-2512 13:28-0400Diastolic blood bejoxvgg54 mm[Hg]Luciana Josehholz SEISMOGRAPH SHOOTER Work Phone: [facility] CenterNwjkcaxhxv98-94-9193 13:28-0400Heart rate87 /min Luciana Carlosholz SEISMOGRAPH SHOOTER Work Phone: [facility] CenterLglzmjphhu02-45-6549 13:28-0400Respiratory rate19 /minLisa Carlosholz SEISMOGRAPH SHOOTER Work Phone: [facility] CenterVtolpxmgxn58-23-7897 13:28-9545NoY3% (BldA) [Mass fraction]95 %Luciana Josehholz SEISMOGRAPH SHOOTER Work Phone: [facility] CenterIinesybwkg91-01-5056 13:28-0400Systolic blood mkqcktyw402 mm[Hg]Luciana Carlosholz SEISMOGRAPH SHOOTER Work Phone: [facility] CenterUvhsjnptbo34-79-3361 10:57-0500Body mass index (BMI) [Ratio]21.94 kg/m2Lisa Carlosholz SEISMOGRAPH SHOOTER Work Phone: [facility] CenterTaeqeaskds65-47-5390 10:57-0500Body temperature 97.59 [degF]Luciana Carlosholz SEISMOGRAPH SHOOTER Work Phone: [phone] [place], [place] [address]Lanaiajhnq69-26-0473 10:57-0500Body yinqhs51.39 kgLisa Carlosholz SEISMOGRAPH SHOOTER Work Phone: [facility] CenterKoecatlxtp58-67-0578 10:57-0500Diastolic blood ukotigpd79 mm[Hg]Luciana Josehholz SEISMOGRAPH SHOOTER Work Phone: [facility] CenterUjwruntmnt56-93-5100 10:57-0500Heart rate65 /min Luciana Aichholz SEISMOGRAPH SHOOTER Work Phone: [phone] [place], [place] [address]Xyakskscle45-07-7404 10:57-0500Respiratory rate18 /minLisa Elderz SEISMOGRAPH SHOOTER Work Phone: [facility] CenterMncvmbwsoc55-50-4755 10:57-5488XbF2% (BldA) [Mass fraction]98 %Luciana Nicolas SEISMOGRAPH SHOOTER Work Phone: [facility] CenterPimfbfaajc53-38-2534 10:57-0500Systolic blood dbiumnln686 mm[Hg]Luciana Elderz SEISMOGRAPH SHOOTER Work Phone: [facility] CenterYfmevdpfus36-15-1771 13:26-0500Body .9 cmLisa Elderz SEISMOGRAPH SHOOTER Work Phone: [facility] CenterQiqzjcukbc63-14-5509 13:26-0500Body mass index (BMI) [Ratio]22.22 kg/m2Katisa Carlosholz SEISMOGRAPH SHOOTER Work Phone: [facility] CenterDfdjafthji18-76-0156 13:26-0500Body temperature 98.1 [degF]Luciana Friedmanz SEISMOGRAPH SHOOTER Work Phone: [facility] CenterFukbxbwcnk57-71-9773 13:26-0500Body unqwik67.3 kg Luciana Elderz SEISMOGRAPH SHOOTER Work Phone: [facility] CenterSpcwzkhnjw17-74-9157 13:26-0500Diastolic blood mm[Hg]Luciana Elderz SEISMOGRAPH SHOOTER Work Phone: [facility] CenterSbigkrdzsw53-50-3605 13:26-0500Heart rate71 /min Luciana Elderz SEISMOGRAPH SHOOTER Work Phone: [facility] CenterEkbltjbeco66-39-8026 13:26-0500Respiratory rate18 /minLisa Carlosholz SEISMOGRAPH SHOOTER Work Phone: [facility] CenterQdpfmpoxen07-06-5576 13:26-5492UyY8% (BldA) [Mass fraction]99 %Luciana Elderz SEISMOGRAPH SHOOTER Work Phone: [facility] CenterXnynwiudfw65-83-6645 13:26-0500Systolic blood vbewwblv476 mm[Hg]Luciana Carlosholz SEISMOGRAPH SHOOTER Work Phone: [facility] CenterXcttlfkykm50-76-8787 09:09-0400Blood Pressure LocationPatrick ZHANG [facility]08-18-2023 09:09-0400Diastolic blood wkocmfbh64 mm[Hg]Joy ZHANG [facility]08-18-2023 09:09-0400Heart rate74 /minPatrick ZHANG [facility] [place] [address]-18-2023 09:09-0400Systolic blood mm[Hg]Joy ZHANG [facility]02-17-2023 10:56-0500Blood Pressure LocationPaBoqiik ZHANG [facility]02-17-2023 10:56-0500Diastolic blood eiyaycge15 mm[Hg]Joy ZHANG [facility]02-17-2023 10:56-0500Heart rate65 /minPatrick ZHANG [facility]02-17-2023 10:56-0500Respiratory rate16 /minPatrick ZHANG [facility]02-17-2023 10:56-0500Systolic blood jgwacllw960 mm[Hg]Joy ZHANG [facility]08-29-2022 11:49-0400Blood Pressure LocationPatrick ZHANG [facility]08-29-2022 11:49-0400Diastolic blood kkfozsko57 mm[Hg]Joy ZHANG [facility]08-29-2022 11:49-0400Heart rate75 /minJoy ZHANG [facility]08-29-2022 11:49-0400Respiratory rate16 /minPatrick MILKA [facility]08-29-2022 11:49-0400Systolic blood uuojamxs496 mm[Hg]Joy MILKA [facility] Encounters Encounter DateEncounter TypeCare ProviderFacilityStart: 37-84-7912yxfygbtlcn Joy ZHANGFacility:EU [place]vueStart: 12-02-2024 End: 89-56-8161WwullpItya Aichholz SEISMOGRAPH SHOOTER Work Phone: noms CWM FMComment on above:Iron deficiency anemia, unspecified iron deficiency anemia typeStart: 11-28-2024 End: 87-44-9370Psajhnete Result EncounterLisa Fidencio SEISMOGRAPH SHOOTER Work Phone: noms External Department UnsolicitedStart: 11-28-2024 End: 70-61-7987Ialjlghwt Result EncounterLisa Fidencio SEISMOGRAPH SHOOTER Work Phone: noms External Department UnsolicitedStart: 11-25-2024 End: 51-15-1357nsqyqablfvTBZL ELDERZNot AvailableStart: 11-25-2024 End: 38-26-2949Rrmvra outpatient visit 25 minutesLisa Nicolas SEISMOGRAPH SHOOTER Work Phone: NOYS CWM FMComment on above: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 (HCC) (Primary Dx); Primary hypertension ; 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); Phantom limb syndrome with pain (HCC); Iron deficiency anemia, unspecified iron deficiency anemia type; GastroenteritisStart: 11-24-2024 End: 09-11-0705mrtgfegltyBlbmloc R WATERSFacility:EU BellevueStart: 11-24-2024 End: 01-46-0203Pbkfkrr encounter procedureJoy ZHANG [facility] start: 11-04-2024 End: 83-68-1691AhrfxhKaiy Aichholz SEISMOGRAPH SHOOTER Work Phone: NOMS CWM FMComment on above:Iron deficiency anemia, unspecified iron deficiency anemia type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); Phantom limb syndrome with pain (HCC)Start: 09-22-2024 End: 14-42-7035UqjnweXmsp Aichholz SEISMOGRAPH SHOOTER Work Phone: NOMS CWM FMComment on above:Phantom painStart: 08-26-2024 End: 78-94-1417Vpfxjceca encounterLisa Fidencio SEISMOGRAPH SHOOTER Work Phone: NOMS CWM FMStart: 08-26-2024 End: 68-41-4677Barmbw outpatient visit 25 minutesLisa Nicolas SEISMOGRAPH SHOOTER Work Phone: NOMS CWM FMComment on above: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) (Primary Dx); Phantom limb syndrome with pain (CMS/HCC); Primary hypertension (CMS/HCC); 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 (CMS/HCC); Elevated PSA, between 10 and less than 20 ng/mlStart: 08-26-2024 End: 15-02-1941nbrdwobhddNYTH AICHHOLZNot AvailableStart: 08-18-2024 End: 93-36-3258mogzebkyljGlrdklb R WATERSFacility:FTMCStart: 08-18-2024 End: 84-72-1308Cwe Drop offJoy ZHANG [facility] Start: 08-18-2024 End: 49-72-2127rjslmkzjqhJnxtydw R WATERSFacility:EU [place]vueStart: 08-11-2024 End: 00-49-5531UpphtvZtpp Aichholz SEISMOGRAPH SHOOTER Work Phone: NOOX CWM FMComment on above:Phantom painStart: 06-25-2024 End: 72-31-2516FksrnvPxfa Aichholz SEISMOGRAPH SHOOTER Work Phone: NOVI CWM FMComment on above:Phantom painStart: 05-30-2024 End: 52-20-0631ImowyzQzmz Aichholz SEISMOGRAPH SHOOTER Work Phone: NOZE CWM FMComment on above:Vitamin D deficiency (Primary Dx); Iron deficiency anemia, unspecified iron deficiency anemia typeStart: 05-29-2024 End: 99-24-6088JrxuiiYnab Aichholz SEISMOGRAPH SHOOTER Work Phone: NOII CWM FMStart: 05-28-2024 End: 59-53-8858Wochnw flowsheetLisa Aichholz SEISMOGRAPH SHOOTER Work Phone: NOBC CWM FMStart: 05-28-2024 End: 46-31-5524Davwfw flowsheetLisa Aichholz SEISMOGRAPH SHOOTER Work Phone: NOKI CWM FMStart: 05-28-2024 End: 91-41-5978Fsvfwpgre Result EncounterLisa Josehholz SEISMOGRAPH SHOOTER Work Phone: NONC External Department UnsolicitedStart: 05-28-2024 End: 85-38-8498Gaptlgj encounter procedureLisa Aichholz SEISMOGRAPH SHOOTER Work Phone: NOXE CWM FMComment on above:Encounter for subsequent annual wellness visit (AWV) in Medicare patient (Primary Dx); Pulmonary hypertension, unspecified (CMS/HCC); Crohn's disease of small intestine without complications (CMS/HCC); Phantom limb syndrome with pain (CMS/HCC); Crohn's disease of large intestine without complications (CMS/HCC); 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 (CMS/HCC); 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); Hx of skilled nursing use of blood thinners; Benign prostatic hyperplasia with lower urinary tract symptoms, symptom details unspecified; Elevated PSA, between 10 and less than 20 ng/ml; Vitamin B12 deficiency; Vitamin D deficiency; Primary hypertension (CMS/HCC); Phantom painStart: 05-28-2024 End: 55-02-8375vwkvsjzolrIQML JOSEHHOLZNot AvailableStart: 05-13-2024 End: 04-04-3228TwdafoIbeb Aichholz SEISMOGRAPH SHOOTER Work Phone: [facility] CWM FMComment on above:Phantom pain (Primary Dx) Start: 04-01-2024 End: 21-32-2176Yvthtt flowsheetLuciana Nicolas SEISMOGRAPH SHOOTER Work Phone: [facility] CWM FMStart: 04-01-2024 End: 14-68-0365Rxpgun flowsheetLuciana Nicolas SEISMOGRAPH SHOOTER Work Phone: [facility] CWM FMStart: 04-01-2024 End: 56-60-0896Gjhqcr [facility] SEISMOGRAPH SHOOTER Work Phone: [facility] CWM FMComment on above:Phantom pain (Primary Dx); Pulmonary hypertension, unspecified (CMS/HCC); Aneurysm of the ascending aorta, without rupture (CMS/HCC); Primary hypertension (CMS/HCC); 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 (CMS/HCC); 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); Elevated PSA, between 10 and less than 20 ng/mlStart: 04-01-2024 End: 22-79-0919wfqpatmpnoVFMT JOSEHHOLZNot AvailableStart: 03-31-2024 End: 67-42-3694gkebpribdiYBJXNKSelect [facility] Start: 03-17-2024 End: 57-84-8870RzdblsDomn Aichholz SEISMOGRAPH SHOOTER Work Phone: [facility] CWM FMComment on above:Phantom painStart: 02-27-2024 End: 88-20-1727Pllxqnreu Result EncounterGeneric External Data ProviderNOMS External Department UnsolicitedStart: 02-27-2024 End: 05-70-9174Kqxmfivmb Result EncounterGeneric External Data ProviderNOMS External Department UnsolicitedStart: 01-29-2024 End: 30-28-8270GjxpbaKaqo Carlosholz SEISMOGRAPH SHOOTER Work Phone: NOLM CWM FMComment on above:Phantom pain (Primary Dx) Start: 12-18-2023 End: 80-58-7372PxvmvlVmvg Naderer MD Work Phone: NOFP CWM FMComment on above:Phantom painStart: 08-17-2023 End: 18-47-0772Dfrxsid encounter procedurePavazquez ZHANG [facility] start: 97-34-0083Qlypnklwj Result EncounterLisa Aichholz SEISMOGRAPH SHOOTER Work Phone: noms External Department UnsolicitedStart: 05-29-2023 Clinisync Result EncounterLisa Aichholz SEISMOGRAPH SHOOTER Work Phone: noms External Department UnsolicitedStart: 2023 Rickey Galo MD Work Phone: [facility] CWM IMStart: 44-15-3448Wxfpiraminta Galo MD Work Phone: [facility] CWM IMStart: 2023 End: 07-28-8094Cspguhp encounter procedureLisa Aichholz SEISMOGRAPH SHOOTER Work Phone: NOKP CWM FMComment on above:Encounter for subsequent annual wellness visit (AWV) in Medicare patient (Primary Dx); Phantom pain (CMS/HCC); Iron deficiency anemia, unspecified iron deficiency anemia type; Primary hypertension (CMS/HCC); 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 (CMS/HCC); Benign prostatic hyperplasia with lower urinary tract symptoms, symptom details unspecified; Vitamin D deficiency; Vitamin B12 deficiencyStart: 12-01-2022 End: 30-38-2584Npqewbi encounter procedureJoy Gutierrez [place] [facility] start: 06-21-2022 End: 46-50-6943xbxmemudlcFW DANGELO UPKIERANacility:W1Qcbim: 06-02-2022 End: 77-22-1347Ueiieui encounter procedureJoy Gutierrez [place] [facility] start: 05-16-2022 End: 62-71-9773Cdrmrjg encounter procedureJoy Gutierrez [place] [facility] Start: 03-22-2022 End: 51-39-4840pdctxtsoeiVrigerd L ValoneFacility:[facility] Hospitaltart: 02-13-2022 End: 88-04-9436ekktitaltdCJ JOY ZHANG .Facility:V7Cgnib: 12-12-2021 End: 67-44-7130Vccoljb encounter procedureJoy Gutierrez [place] [facility] start: 47-72-5968lkaixdqhngCNS LUCIANA AICHHOLZFacility:H1 Start: 10-13-2021 End: 60-64-4661bnafkcqbggVPL LUCIANA AICHHOLZFacility:F1Yzxlv: 09-17-2021 End: 71-17-8921ovyybsacxhLXN LUCIANA AICHHOLZFacility:M8Hbelk: 09-16-2021 End: 93-12-2713Ovtsenl encounter procedureJoy Gutierrez [place] [facility] start: 07-26-2021 End: 95-97-0970vhcddoksgpVDYGXMJ TUCKERFacility:Y5Dtrdm: 65-20-9019bsglmihuac MONSTER TUCKERFacility:V9Jzfma: 03-08-2021 End: 85-17-7618trsdtuduopEGWHLNO ABD ALAMIRFacility:[facility] Procedures DateProcedureProcedure DetailPerforming ClinicianStart: 47-91-5521CBB CBC WITH AUTO DIFFLisa Aichholz SEISMOGRAPH SHOOTER Work Phone: Start: 16-84-4164CPH CBC WITH AUTO DIFFLisa Aichholz SEISMOGRAPH SHOOTER Work Phone: Start: 98-47-7952UH ECHO DOPPLER COMPLETEGeneric External Data ProviderStart: 84-73-8375WVP UA (CLEAN/CATCH) MICROSCOPIC IF INDICATELisa Aichholz SEISMOGRAPH SHOOTER Work Phone: Start: 66-21-9317Tvfhwveymph needle biopsy of prostate Joy [place] Start: 31-65-7795YUJ screeningDR DANGELO JAEGER Comment on above:Performed By: #### PSAD #### [facility] [address] [address] [address] Jose SaenzStart: 49-82-9644ZSX screeningDR DANGELO JAEGERComment on above:Performed By: #### VITB12, PSASC #### [facility] [address] [address] [address] Jose SaenzStart: 05-00-9289Ftrcxopw screenMOSHRIK ABD ALAMIRComment on above:Performed By: #### [id number] #### [address] [address], USAStart: 32-90-6837Jmajwbtprfeag prostatectomyPatrick ZHANG Start: 80-98-1069Mziovfirdd studiesPatrick ZHANG Start: 12-73-8162Seadrpeyugzmj prostatectomyPatrick ZHANG Start: 56-57-5397Tcywrjmstjgwo prostatectomyPatrick ZHANG amputation of lower limbPatrick ZHANG ColonoscopyPatrick ZHANG Hernia repairPatrick ZHANG Unlisted procedure femur/kneePatrick ZHANG Plan of Treatment DateCare ActivityDetailAuthorStart: 06-01-2025 End: 59-43-6960Xsbtrwg encounter wnqkmmicq18/16/2026 11:00 AM EST [facility] [address] [place] [address] Luciana Nicolas, BETSY [address] [place] [address] [facility] FMStart: 02-12-2026Medicare Annual Wellness (AWV) Medicare Annual Wellness (AWV)[facility] HealthcareStart: 02-25-2025 End: 61-24-2416Fmthbwp encounter ghezznkxa91/12/2025 1:00 PM EST Office Visit [facility] [address] [place] [address] Luciana Nicolas, SEISMOGRAPH SHOOTER [address] [place] [address] [facility] FMStart: 06-17-8629Vjhhdnzcg vaccinationInfluenza Vaccine (#1)[facility] HealthcareStart: 11-25-2024 End: 06-37-7515FUY W Auto Differential panel - BloodCBC and differential Lab Routine Iron deficiency anemia, unspecified iron deficiency anemia type Exp ected: 11/25/2024 (Approximate), Expires: 11/25/2025[facility] Work Phone: Comment on above:Expected: 11/25/2024 (Approximate), Expires: 11/25/2025Start: 11-25-2024 End: 78-56-3889Etikhren [Mass/volume] in Serum or PlasmaFerritin Lab Routine Iron deficiency anemia, unspecified iron deficiency anemia type Expected: 11/25 (Approximate), Expires: 11/25/2025[facility] HealthcareComment on above: Expected: 11/25/2024 (Approximate), Expires: 11/25/2025Start: 11-25-2024 End: 83-95-4528Davz + transferrin + TIBCIron + transferrin + TIBC Lab Routine Iron deficiency anemia, unspecified iron deficiency anemia type Expected: 11/25/2024 (Approximate), Expires: 11/25/2025[facility] HealthcareComment on above: Expected: 11/25/2024 (Approximate), Expires: 11/25/2025Start: 11-25-2024 End: 68-45-4483Apurvym encounter /12/2025 1:00 PM EDT Office Visit [facility] [address] [place] [address] Luciana Nicolas, SEISMOGRAPH SHOOTER [address] [place] [address] [facility] FMStart: 08-26-2024 End: 28-87-4115Vsnrwcq encounter twszhuhiq12/13/2025 1:20 PM EDT Office Visit [facility] [address] [place] [address] Luciana Nicolas, SEISMOGRAPH SHOOTER [address] [place] [address] [facility] FMStart: 05-28-2024 End: 397899-xafhcghikbpini D3 [Mass/volume] in Serum or PlasmaVitamin D 25 hydroxy Lab Routine Vitamin D deficiency Expected: 05/28/2024 (Approximate), Expires: 05/28/2025[facility] HealthcareComment on above:Expected: 05/28/2024 (Approximate), Expires: 05/28/2025Start: 05-28-2024 End: 80-55-3562JFF W Auto Differential panel - BloodCBC and differential Lab Routine 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 (CMS/HCC) 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 Vitamin B12 deficiency Expected: 05/28/2024 (Approximate), Expires: 05/28/2025[facility] Work Phone: Comment on above:Expected: 05/28/2024 (Approximate), Expires: 05/28/2025Start: 05-28-2024 End: 56-13-6854Vadwveoyi (Vitamin B12) [Mass/volume] in Serum or PlasmaVitamin B12 Lab Routine Vitamin B12 deficiency Expected: 05/28/2024 (Approximate), Expires: 05/28/2025[facility] HealthcareComment on above:Expected: 05/28/2024 (Approximate), Expires: 05/28/2025Start: 05-28-2024 End: 77-72-5122Cynisehxqdozw metabolic 2000 panel - Serum or PlasmaComprehensive metabolic panel Lab Routine Vitamin D deficiency Primary hypertension (CMS/HCC) Expected: 05/28/2024 (Approximate), Expires: 05/28/2025[facility] HealthcareComment on above:Expected: 05/28/2024 (Approximate), Expires: 05/28/2025Start: 05-28-2024 End: 29-90-3782Ewxiskwqnlgj/Creatinine panel in random UrineMicroalbumin / creatinine, urine ratio Lab Routine Primary hypertension (CMS/HCC) Expected: 05/28/2024 (Approximate), Expires: 05/28/2025[facility] HealthcareComment on above: Expected: 05/28/2024 (Approximate), Expires: 05/28/2025Start: 05-28-2024 End: 46-67-5968Kbwhhivl specific Ag [Mass/volume] in Serum or PlasmaPSA Lab Routine Benign prostatic hyperplasia with lower urinary tract symptoms, symptom details unspecified Elevated PSA, between 10 and less than 20 ng/ml Expected: 05/28/2024 (Approximate), Expires: 05/28/2025[facility] HealthcareComment on above: Expected: 05/28/2024 (Approximate), Expires: 05/28/2025Start: 05-28-2024 End: 09-50-8241Nahhwgqrud complete panel - UrineUrinalysis with reflex microscopic (clean catch) Lab Routine Primary hypertension (CMS/HCC) Expected: 05/28/2024 (Approximate), Expires: 05/28/2025[facility] HealthcareComment on above: Expected: 05/28/2024 (Approximate), Expires: 05/28/2025Start: 05-28-2024 End: 41-12-8236Jnledcw encounter procedureNOROLLING HILLS [facility] FMComment on above: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) (Primary Dx); Pulmonary hypertension, unspecified (CMS/HCC); Crohn's disease of small intestine without complications (CMS/HCC); Phantom limb syndrome with pain (CMS/HCC); Crohn's disease of large intestine without complications (CMS/HCC); 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 (CMS/HCC); 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; Encounter for subsequent annual wellness visit (AWV) in Medicare patient; Benign prostatic hyperplasia with lower urinary tract symptoms, symptom details unspecified; Elevated PSA, between 10 and less than 20 ng/ml; Vitamin B12 deficiency; Vitamin D deficiency; Primary hypertension (CMS/HCC)Start: 02-07-2025Medicare Annual Wellness (AWV) Medicare Annual Wellness (AWV)[facility] HealthcareStart: 04-01-2024 End: 07-93-6026Mnmepxt encounter fxvesbdqv57/17/2024 1:20 PM EST Office Visit [facility] [address] [place] [address] Luciana Nicolas NP [address] [place] [address] Phantom pain (Primary Dx); Pulmonary hypertension, unspecified (CMS/HCC); Aneurysm of the ascending aorta, without rupture (CMS/HCC); Primary hypertension (CMS/HCC); 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 (C MS/HCC); 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)[facility] FMComment on above:Phantom pain (Primary Dx); Pulmonary hypertension, unspecified (CMS/HCC); Aneurysm of the ascending aorta, without rupture (CMS/HCC); Primary hypertension (CMS/HCC); 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 (CMS/HCC); 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) Start: 02-21-2024 End: 80-75-3941Qgguevk encounter qbkxepzcu25/07/2024 1:00 PM EST Office Visit [facility] [address] [place] [address] Luciana Nicolas, BETSY [address] [place] [address] [facility] FMStart: 02-18-2024 End: 25-09-5160Beaarbm encounter ozmrxvwlg10/04/2024 1:20 PM EST Office Visit [facility] [address] [place] [address] Luciana Nicolas, BETSY [address] [place] [address] [facility] FMStart: 18-12-3027Cuogbglny vaccinationInfluenza Vaccine (#1)[facility] HealthcareStart: 08-20-2023 End: 86-14-6132Rksgtaz encounter cdgvomcsr20/06/2024 1:20 PM EDT Office Visit [facility] [address] [place] [address] Luciana Nicolas, SEISMOGRAPH SHOOTER [address] [place] [address] [facility] FMStart: 2023 End: 531786-iorccwmjnjchio D3 [Mass/volume] in Serum or PlasmaVitamin D 25 hydroxy Lab Routine Vitamin D deficiency Expected: 2023 (Approximate), Expires: 2024N[facility]S HealthcareComment on above:Expected: 2023 (Approximate), Expires: 2024Start: 2023 End: 11-30-9157UEH W Auto Differential panel - BloodCBC and differential Lab Routine Iron deficiency anemia, unspecified iron deficiency anemia type Par oxysmal atrial fibrillation (CMS/HCC) Vitamin B12 deficiency Expected: 2023 (Approximate), Expires: 2024[facility] Work Phone: Comment on above:Expected: 2023 (Approximate), Expires: 2024Start: 2023 End: 70-31-7286Ezyvapmfs (Vitamin B12) [Mass/volume] in Serum or PlasmaVitamin B12 Lab Routine Vitamin B12 deficiency Expected: 2023 (Approximate), Expires: 2024[facility] HealthcareComment on above:Expected: 2023 (Approximate), Expires: 2024Start: 2023 End: 91-86-3418Wvtqtsikxkpgq metabolic 2000 panel - Serum or PlasmaComprehensive metabolic panel Lab Routine Iron deficiency anemia, unspecified iron deficiency anemia type Primary hypertension (CMS/HCC) Benign prostatic hyperplasia with lower urinary tract symptoms, symptom details unspecified Vitamin D deficiency Expected: 2023 (Approximate), Expires: 2024[facility] HealthcareComment on above:Expected: 2023 (Approximate), Expires: 2024Start: 2023 End: 71-23-7583Lgqm and Iron binding capacity panel - Serum or PlasmaIron level Lab Routine Iron deficiency anemia, unspecified iron deficiency anemia type Expected: 2023 (Approximate), Expires: 2024[facility] HealthcareComment on above:Expected: 2023 (Approximate), Expires: 2024Start: 2023 End: 77-03-1463Jbzun 1996 panel - Serum or PlasmaLipid panel Lab Routine Primary hypertension (CMS/HCC) Expected: 2023 (Approximate), Expires:2024 [facility] HealthcareComment on above:Expected: 2023 (Approximate), Expires: 2024Start: 2023 End: 84-74-5581Jgmsdsscoxhr/Creatinine panel in random UrineMicroalbumin / creatinine, urine ratio Lab Routine Primary hypertension ([facility]) Expected: 2023 (Approximate), Expires: 2024[facility] HealthcareComment on above: Expected: 2023 (Approximate), Expires: 2024Start: 2023 End: 90-80-0032Glnmypja specific Ag [Mass/volume] in Serum or PlasmaPSA Lab Routine Benign prostatic hyperplasia with lower urinary tract symptoms, symptom details unspecified Expected: 2023 (Approximate), Expires: 2024[facility] HealthcareComment on above:Expected: 2023 (Approximate), Expires: 2024Start: 2023 End: 98-82-8052Ssansqxtcc complete panel - UrineUrinalysis with reflex microscopic (clean catch) Lab Routine Primary hypertension ([facility]) Expected: 2023 (Approximate), Expires: 2024[facility] HealthcareComment on above: Expected: 2023 (Approximate), Expires: 2024Start: 2023 End: 41-59-2973Fjfjewa encounter xrtkuizdj60/07/2024 10:00 AM EST [facility] [address] [place] [address] Shaikh Galo MD [address] [place] [address] [facility]rivedGL[facility] IMComment on above:ArrivedStart: 12-15-2022 Influenza vaccinationInfluenza Vaccine (#1)[facility] HealthcareStart: 01-26-2021 Pneumococcal Vaccine: 65+ Years (2 - PCV)Pneumococcal Vaccine: 65+ Years (2 - PCV)[facility]OM HealthcareStart: 02-07-1937Medicare Annual Wellness (AWV)Medicare Annual Wellness (AWV)[facility] Immunizations Immunization DateImmunizationNotesCare SwcxletwWpowrllx99-57-3425osmuigvjk virus vaccine, unspecified formulationIaHypercontext [facility]10-19-2024influenza, high dose seasonal, preservative-freeLisa Aichholz SEISMOGRAPH SHOOTER Work Phone: [facility] CenterMhypctqadl76-03-7189EOBX-DCG-6 (COVID-19) vaccine, mRNA, spike protein, LNP, PF, megha-sucrose, 30 mcg/0.3 mLLisa aCrlosholz SEISMOGRAPH SHOOTER Work Phone: [facility] CenterDiyomcbplj27-13-6450eztvoxwfv virus vaccine, unspecified formulationIaHypercontext [facility]10-03-2023Influenza, High-dose Seasonal, Quadrivalent, Preservative Free Luciana Fidencio SEISMOGRAPH SHOOTER Work Phone: [facility] CenterKcnhnxyxaj44-08-6916Whswpgjva, Seasonal, Quadrivalent, AdjuvantedMarc Sherri OROZCO Work Phone: noSaint [facility]'s [facility] HospitalBpjvgvrvma44-83-8235EZVB-NJU-7 (COVID-19) vaccine, mRNA, spike protein, LNP, PF, megha-sucrose, 30 mcg/0.3 mLMarc Sherri OROZCO Work Phone: [facility] CenterHjcmhbvrua37-40-0612iawyrdzzi virus vaccine, unspecified formulationIaHypercontext [facility]09-26-2022Influenza, High-dose Seasonal, Quadrivalent, Preservative Free Filipe Polanco MD Work Phone: [facility] CenterBzmrzmkymd53-98-2176AHER-VtY-2 (COVID-19) mRNAMUL.ORD!i16585Izaqzne WATERS [facility]11-19-2021SARS-CoV-2 (COVID-19) mRNA BNT-162b2 vaxJoy ZHANG [facility]11-10-2021influenza virus vaccine, unspecified formulationPatrick Spectral Image [facility]11-10-2021Influenza, injectable, Madin Alpine Canine Kidney, preservative free, quadrivalentShaikh Clover OROZCO Work Phone: [facility] CenterTzypmocbrd62-21-6463FCFV-MvO-7 (COVID-19) mRNA- 1273 vaccinePaHypercontext [facility]02-08-2021SARS-CoV-2 (COVID-19) mRNA-1273 vaccineJamaBoqiityrell Spectral Image [facility]10-13-2020influenza virus vaccine, unspecified formulationPaHypercontext [facility]10-13-2020influenza, injectable, quadrivalent, preservative freeShaikh Clover OROZCO Work Phone: [facility] CenterRopxesmpte14-54-0752kifhrdlwuseg polysaccharide vaccine, 23 valentPaBoqiityrell Spectral Image [facility] Payers DatePayer CategoryPayerPolicy [id number] Health Insurance [id number] 2002Medicare [id number] [id number] 1960 Private Health [id number]-[id number] [id number] 2.16.840.1.074626.3.57[id number] 2.16.840.1.823742.3.57[id number] 2.16840.1.246310.3.57[id number] 2.16840.1.904975.3.57[id number] 2.16840.1.629868.3.57[id number] 2.840.1.235603.3.57[id number] 2.840.1.204535.3.57[id number] 2.840.1.883828.3.57[id number] 2.840.1.993169.3.57[id number] 2.840.1.515457.3.57[id number] 2.16840.1.218148.3.57[id number] 2.16840.1.608860.3.57[id number] 2.16840.1.277242.3.57[id number] 2.16840.1.182323.3.57[id number] 2..840.1.32[id number] 2.16.840.1.006831.3.579.2.531 Social History DateTypeDetailFacilityStart: 03-28-2021 End: 72-44-2675Pewqoox smoking statusEx-smoker (finding)[facility] start: 04-04-2023 End: 83-07-3178Gbe Assigned At BirthMaleExec[facility] of [facility] start: 58-95-3252Gazbqlp smoking statusNeverExecutive Urology of St. John Of God HospitalTothe hospital of central connecticutquit 30 years ago Tobacco Use:. Stopped age 35 Years.[facility] [employer] smoking statusExecutive Urology of St. [facility] start: 04-16-1956 End: 22-44-8738Revddup of tobacco useCurrent smokerNOCO HealthcareStart: 04-16-1957 End: 90-45-2042Wwmarzf of tobacco useCigarette SmokerNOCO HealthcareStart: 04-04-2023 End: 89-69-9694Wabegklogx smoked current (pack per day) - Reported1.5[facility] HealthcareStart: 80-93-3479Ghk Assigned At BirthNot on fileNOCO HealthcareStart: 2023 End: 91-69-6707Ybsulok intakeEx-drinker (finding)[facility] HealthcareWithin the last year, have you been afraid of your partner or ex-partner?NoNOMS HealthcareDo you belong to any clubs or organizations such as latter day groups, unions, fraternal or athletic groups, or [...] before (I/we) got money to buy more.Never trueNOCO HealthcareStart: 2023 Alcohol Commentcoffee 2 cups dailyNOCO HealthcareStart: 86-01-3045EnnItma (finding)[facility] Functional Status RdejMjhdboruvuEmakvkAnlachep66-86-3308Hfkdjstfbr StatusN/AExecutive [facility]rology of St. [facility]08-18-2023Functional StatusN/AExec[facility]02-17-2023Functional StatusN/A [facility]08-29-2022Functional StatusN/AExec[facility] Clinical Notes 12-12-2021 to 11-26-2024 Note Date & FoybPprrAfnicnof87-76-8841 History of Present illness Narrative* Luciana Nicolas NP - 11/26/2024 4:04 AM EDTAssociated Problem(s): Gastroenteritis Reviewed [facility] ER notes Appears to be [...] her. was also in the ER at [facility] a few days ago for gastroenteritis evaluation See [facility] ER notes, as well as labs: he [...] anything for rate control. 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 doneagain 03/16/2020 RHIZOTOMY Right 05/25/2020 right theurapeutic rhizotomy sympathetic level of L4 and L5 - Dr Kim/[facility] family history is not on file. OBJECTIVE: [...] with pain (HCC) Continue with gabapentin and Traver OARRS reviewed Med Agreement signed: 05/28/24 Hypertension [...] file Fu in 3 months Gastroenteritis Reviewed [facility] ER notes Appears to be feeling better No s/s dehydration * Luciana Nicolas NP - 11/25/2024 6:46 AM EDTAssociated Problem(s): Phantom limb syndrome with pain (HCC) Continue with gabapentin and Traver OARRS reviewed Med Agreement signed: 05/28/24 * [...] changes Current med: losartan documented in this encounterMoberly Regional Medical CenterUjmjkrifes48-31-1753 Hospital Discharge instructions Patient Education 11/24/2024 13:08:38 [...] to keep your urine pale yellow. ?Take afxg-gih-nvdwatf or prescription medicines. ?Eat foods that are high in fiber, such as beans, whole grains, and fresh fruits and vegetables. ?Limit foods that are high in fat and processed sugars, such as fried or sweet foods. General instructions Take kwxq-owj-zsbmezk and prescription medicines only as told by [...] the muscles that help control urination. Take vbak-zoc-wdzowzs and prescription medicines only as told by your health care provider. Contact a health care provider if your symptoms do not improve or get worse. This information is not intended to replace advice given to you by your health care provider. Make sure you discuss any questions you have with your health care provider. Document Revised: 11/05/2020 Document Reviewed: 11/05/2020 [employer] Patient Education 2023 [employer]. Follow Up Care 08/18/2024 10:42:01 With:MILKA OROZCO, Joy Gutierrez, URL Address: [address] [place] [address] [place] [address] When: Unknown Comments:6 mos [facility] Quan 08-11-2025 NotePatient Education Urology Urinary Frequency, [...] keep your urine pale yellow. ? Take lltn-saj-mduvucs or prescription medicines. ? Eat foods that are high in fiber, such as beans, whole grains, and fresh fruits and vegetables. ? Limit foods that are high in fat and processed sugars, such as fried or sweet foods. General instructions ??? Take okvx-hyq-tcxzodd and prescription medicines only as told by [...] muscles that help control urination. ??? Take gnnc-nui-rxtmpip and prescription medicines only as told by your health care provider. ??? Contact a health care provider if your symptoms do not improve or get worse. This information is not intended to replace advice given to you by your health care provider. Make sure you discuss any questions you have with your health care provider. Document Revised: 11/05/2020 Document Reviewed: 11/05/2020 [employer] Patient Education ? 2023 [employer].[facility] 11-04-2024 Telephone encounter Note* Telephone Encounter - Tracy Nelson - 11/04/2024 3:52 PM EDT Patient is asking for a refill of hydrocodone acetaminophen. JN [facility] [id number] Miscellaneous Notes* Telephone Encounter - Tracy Nelson - 11/04/2024 3:52 PM EDT Patient is asking for a refill of hydrocodone acetaminophen. JN documented in this encounterMoberly Regional Medical [id number] History of Present illness Narrative* RORY ELENA [...] 300 mg, Oral, 2 times daily HYDROcodone-acetaminophen (Traver) 5-325 MG tablet 1 tablet, Oral, Every [...] hypertrophy BPH with urinary obstruction Crohn's colitis (CMS/[facility]) Elevated PSA, between 10 and less than 20 ng/ml Hard of hearing Hematuria Hypertension ([facility]) Iron deficiency anemia 08/01/2017 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 ([facility]/HCC) 2023 Phantom pain 03/26/2023 Right shoulder pain Vitamin B12 deficiency Past Surgical History: Procedure Laterality Date HERNIA REPAIR OTHER SURGICAL HISTORY Right AKA OTHER SURGICAL HISTORY Right 01/20/2020 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 doneagain 03/16/2020 RHIZOTOMY Right 05/25/2020 right theurapeutic rhizotomy sympathetic level of L4 and L5 - Dr Kim/[facility] family history is not on file. 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) ([facility]) - Primary OARRS reviewed Pain agreement is on file Fu in 3 months * Luciana Nicolas NP - 08/26/2024 6:44 AM EDTAssociated Problem(s): Elevated PSA, between 10 and less than 20 ng/ml Established with dr zhang * Luciana Nicolas NP - 08/26/2024 6:39 AM EDTAssociated Problem(s): 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.] with pain (CMS/HCC) Continue with gabapentin and Traver OARRS reviewed Med Agreement signed: 05/28/24 Hypertension [...] with pain (CMS/HCC) Continue with gabapentin and Traver OARRS reviewed Med Agreement signed: 05/28/24 documented in this encounterMoberly Regional Medical [id number] Telephone encounter Note* Telephone Encounter - Luciana Nicolas NP - 08/26/2024 6:[address] taylor's office to get most UTD office notes please [place] [facility] [id number] Miscellaneous Notes* Telephone Encounter - Luciana Nicolas NP - 08/26/2024 6:[address] taylor's office to get most UTD office notes please [place] documented in this encounterMoberly Regional Medical [id number] NotePatient Education Urology Urinary Frequency, Adult Urinary [...] keep your urine pale yellow. ? Take xdpd-sil-okkdowr or prescription medicines. ? Eat foods that are high in fiber, such as beans, whole grains, and fresh fruits and vegetables. ? Limit foods that are high in fat and processed sugars, such as fried or sweet foods. General instructions ??? Take absm-rdr-teecbkm and prescription medicines only as told by [...] muscles that help control urination. ??? Take onpw-lio-vptookk and prescription medicines only as told by your health care provider. ??? Contact a health care provider if your symptoms do not improve or get worse. This information is not intended to replace advice given to you by your health care provider. Make sure you discuss any questions you have with your health care provider. Document Revised: 11/05/2020 Document Reviewed: 11/05/2020 [employer] Patient Education ? 2023 [employer].[facility] 05-28-2024 History of Present illness Narrative* Luciana [...] 300 mg, Oral, 2 times daily HYDROcodone-acetaminophen (Traver) 5-325 MG tablet 1 tablet, Oral, Every [...] Above knee amputation of left lower extremity ([facility]) At low risk for fall Benign prostatic hyperplasia Benign prostatic hypertrophy BPH with urinary obstruction Crohn's colitis ([facility]) Elevated PSA, between 10 and less than 20 ng/ml Hard of hearing Hematuria Hypertension ([facility]) Iron deficiency anemia 08/01/2017 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 ([facility]) 2023 Phantom pain 03/26/2023 Right shoulder pain Vitamin B12 deficiency Past Surgical History: Procedure Laterality Date HERNIA REPAIR OTHER SURGICAL HISTORY Right AKA OTHER SURGICAL HISTORY Right 01/20/2020 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 doneagain 03/16/2020 RHIZOTOMY Right 05/25/2020 right theurapeutic rhizotomy sympathetic level of L4 and L5 - Dr Kim/[facility] family history is not on file. 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 Check cbc yearly [...] with pain (CMS/HCC) Continue with gabapentin and Traver OARRS reviewed Med Agreement signed: 05/28/24 documented in this encounterMoberly Regional Medical [id number] Instructions* Patient Instructions* Luciana Nicolas NP - 05/28/2024 11:00 AM EST Get labs completed documented in this [facility]12-17-2024 History of Present illness Narrative* Luciana [...] received at pharmacy He does follow with [facility] cardiology for a fib, and had recent visit with them as well recently, reviewed labs SUBJECTIVE: MEDICATIONS: Current Outpatient Medications Medication Instructions apixaban (Eliquis) 2.5 MG tablet 1 tablet, 2 times daily cyanocobalamin (Vitamin B-12) 1000 MCG tablet 1 tablet, Daily RT gabapentin (NEURONTIN) 300 mg, Oral, 2 times daily HYDROcodone-acetaminophen (Traver) 5-325 MG tablet 1 tablet, Oral, Every [...] Above knee amputation of left lower extremity ([facility]) At low risk for fall Benign prostatic hyperplasia Benign prostatic hypertrophy BPH with urinary obstruction Crohn's colitis ([facility]) Elevated PSA, between 10 and less than 20 ng/ml Hard of hearing Hematuria Hypertension ([facility]) Iron deficiency anemia 08/01/2017 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 ([facility]/HCC) 2023 Phantom pain 03/26/2023 Right shoulder pain Vitamin B12 deficiency Past Surgical History: Procedure Laterality Date HERNIA REPAIR OTHER SURGICAL HISTORY Right AKA OTHER SURGICAL HISTORY Right 01/20/2020 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 doneagain 03/16/2020 RHIZOTOMY Right 05/25/2020 right theurapeutic rhizotomy sympathetic level of L4 and L5 - Dr Kim/[facility] family history is not on file. 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 fib and RVR. He [...] reaction(s): Other (See Comments) (more content not included)...[facility] Telephone encounter Note* Telephone Encounter - Luciana Nicolas NP - 03/17/2024 2:15 PM EST Pt does need a fu appt. With getting pain meds, he does need to be seen every 3 months, he has cancelled a couple appts in February. I am sure with his 's medical it has been difficult, but please schedule him in [place] [facility] [id number] Miscellaneous Notes* Telephone Encounter - Luciana Nicolas NP - 03/17/2024 2:15 PM EST Pt does need a fu appt. With getting pain meds, he does need to be seen every 3 months, he has cancelled a couple appts in February. I am sure with his 's medical it has been difficult, but please schedule him in [place] documented in this encounterMoberly Regional Medical [id number] Hospital Discharge instructions Patient Education 08/17/2023 10:01:11 [...] urethra. Follow these instructions at home: Take yzku-vry-uyklmit and prescription medicines only as told by [...] provider. Document Revised: 10/19/2021 Document Reviewed: 10/19/2021 [employer] Patient Education 2022 [employer]. Follow Up Care 06/11/2023 11:07:33 With:MILKA OROZCO, Joy Gutierrez, URL Address: [address] [place] [id number]- When: Unknown [facility] 02-07-2024 History of Present illness Narrative* Luciana [...] 300 mg, Oral, 2 times daily HYDROcodone-acetaminophen (Traver) 5-325 MG tablet 1 tablet, Oral, 2 [...] up yearly and prn documented in this encounterMoberly Regional Medical [id number] Hospital Discharge instructions Patient Education 12/01/2022 09:54:31 [...] urethra. Follow these instructions at home: Take bsdw-izv-kczhesh and prescription medicines only as told by [...] provider. Document Revised: 10/19/2021 Document Reviewed: 10/19/2021 [employer] Patient Education 2022 [employer]. Follow Up Care 06/02/2022 11:46:25 With:MILKA OROZCO, Joy Gutierrez, URL Address: [address] [place] [id number]- When: Unknown [facility] [place] 02-17-2023 Hospital Discharge instructions Patient Education [...] have oneof these risk factors: ?Being of -[place] descent. ?Having a family history of prostate [...] you: Are older than age 55. Are -[place]. Have a father, brother, or uncle who [...] 01/11/2018 Document Revised: 03/15/2018 Document Reviewed: 01/11/2018 [employer] Patient Education 2020 [employer]. Follow Up Care 05/01/2022 08:18:24 With:MILKA OROZCO, Joy Gutierrez, URL Address: [address] [place] [address] [place] [address]- When: Unknown [facility] 01-31-2023 Hospital Discharge instructions Patient Education 05/16/2022 [...] for your post-operative appointment in 1-2 weeks [phone] or [phone] Follow Up Care 05/01/2022 08:13:35 With:Joy ZHANG Address: [facility] [address] [place] [address]- Business (1) When: Unknown Comments:Keep scheduled appointment [facility]08-29-2022 Hospital Discharge instructions Patient Education 12/12/2021 12:10:29 [...] have oneof these risk factors: ?Being of -[place]apore[place] descent. ?Having a family history of prostate [...] you: Are older than age 55. Are -[place]an. Have a father, brother, or uncle who [...] 01/11/2018 Document Revised: 03/15/2018 Document Reviewed: 01/11/2018 [employer] Patient Education 2020 [employer]. Follow Up Care 12/10/2020 12:14:36 With:Joy ZHANG MD, URL Address: [address] [place] [address]- When:Within 2 Month(s) [facility] evaluation + Plan note Future Appointments Appointment Date:12/12/2021 11:15:00 AM Scheduled Provider:Joy ZHANG MD Location:[facility] Appointment Type:URO Office Visit Diagnostic Tests Pending * UroVysion Fish and Urine Cyto ([facility]) 09/16/21 [facility] evaluation + Plan note Future Appointments Appointment Date:02/13/2022 11:15:00 AM Scheduled Provider:Joy ZHANG MD Location:[facility] Appointment Type:URO Office Visit Diagnostic Tests Pending * PSA Total 12/29/21 [facility] evaluation + Plan note Future Appointments Appointment Date:06/02/2022 11:00:00 AM Scheduled Provider:[facility] Office Visit Diagnostic Tests Pending * Prostate Histology ([facility]) 05/16/22 [facility] Future Appointments Appointment Date:12/01/2022 08:45:00 AM Scheduled Provider:Joy ZHANG MD Location:[facility] Appointment Type:URO Office Visit Diagnostic Tests Pending * PSA Total 10/14/[address] [facility] evaluation + Plan note Future Appointments Appointment Date:06/11/2023 09:45:00 AM Scheduled Provider:Joy ZHANG MD Location:[facility] Appointment Type:URO Office Visit [facility] evaluation + Plan note Future Appointments Appointment Date:08/18/2024 10:30:00 AM Scheduled Provider:Joy ZHANG MD Location:[facility] Appointment Type:URO Office Visit [facility] evaluation + Plan note Future Appointments Appointment Date:11/24/2024 12:45:00 PM Scheduled Provider:Joy ZHANG MD Location:[facility] Appointment Type:URO Office Visit Diagnostic Tests Pending * Urine Cytology ([facility]) 08/18/24 [facility] Evaluation + Plan note Future Appointments Appointment Date:05/29/2025 11:00:00 AM Scheduled Provider:Joy ZHANG MD Location:[facility] Appointment Type:URO Office Visit [facility] evaluation note* Diagnosis Encounter for subsequent annual wellness visit (AWV) in Medicare patient- Primary Phantom pain (CMS/HCC) Phantom limb (syndrome) Iron deficiency anemia, unspecified iron deficiency anemia type Primary hypertension ([facility]/HCC) Unspecified essential hypertension 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 ([facility]/HCC) Atrial fibrillation Benign prostatic hyperplasia with lower [...] Phantom limb (syndrome) documented in this encounter [facility] HealthcareEvaluation note* Diagnosis Phantom pain- Primary [...] than 20 ng/ml documented in this encounter [facility] HealthcareEvaluation note* Diagnosis Phantom pain Phantom [...] Phantom limb (syndrome) documented in this encounter [facility] HealthcareEvaluation note* Diagnosis Phantom pain- Primary Phantom [...] knee upon examination (HCC) (CMS/HCC) 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 Encounter for long-term (current) use of anticoagulants Benign prostatic hyperplasia with lower urinary tract symptoms, symptom details unspecified Elevated PSA, between 10 and less than 20 ng/ml Vitamin B12 deficiency Other B-complex deficiencies Vitamin D deficiency Primary hypertension (CMS/HCC) Unspecified essential hypertension Phantom pain Phantom limb (syndrome) documented in this encounter [facility] HealthcareEvaluation note* Diagnosis Phantom pain- Primary Phantom [...] knee upon examination (HCC) (CMS/HCC) Hx of skilled nursing use of blood thinners Encounter for long-term [...] deficiency anemia type documented in this encounter [facility] HealthcareEvaluation note* Diagnosis Phantom pain- Primary Phantom [...] knee upon examination (HCC) (CMS/HCC) Hx of skilled nursing use of blood thinners Encounter for long-term (current) use of anticoagulants Benign prostatic hyperplasia with lower urinary tract symptoms, symptom details unspecified Elevated PSA, between 10 and less than 20 ng/ml Vitamin B12 deficiency Other B-complex deficiencies Vitamin D deficiency Primary hypertension (CMS/HCC) Unspecified essential hypertension Phantom pain Phantom limb (syndrome) Phantom pain Phantom limb (syndrome) documented in this encounter [facility] HealthcareEvaluation note* Diagnosis Phantom pain- Primary Phantom [...] knee upon examination (HCC) (CMS/HCC) 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 Encounter for long-term (current) use of anticoagulants Benign prostatic hyperplasia with lower urinary tract symptoms, symptom details unspecified Elevated PSA, between 10 and less than 20 ng/ml Vitamin B12 deficiency Other B-complex deficiencies Vitamin D deficiency Primary hypertension (CMS/HCC) Unspecified essential hypertension Phantom pain Phantom limb (syndrome) Phantom pain Phantom limb (syndrome) documented in this encounter [facility] HealthcareEvaluation note* Diagnosis Phantom pain- Primary [...] knee upon examination (HCC) (CMS/HCC) Hx of skilled nursing use of blood thinners Encounter for long-term [...] than 20 ng/ml documented in this encounter [facility] HealthcareEvaluation note* Diagnosis Phantom pain- Primary [...] knee upon examination (HCC) (CMS/HCC) Hx of skilled nursing use of blood thinners Encounter for long-term [...] than 20 ng/ml documented in this encounter [facility] HealthcareEvaluation note* Diagnosis Phantom pain- Primary [...] knee upon examination (HCC) (CMS/HCC) Hx of skilled nursing use of blood thinners Encounter for long-term [...] Phantom limb (syndrome) documented in this encounter [facility] HealthcareEvaluation note* Diagnosis Phantom pain- Primary Phantom [...] above knee upon examination (HCC) Hx of skilled nursing use of blood thinners Encounter for long-term [...] deficiency anemia type documented in this encounter [facility] HealthcareEvaluation note* Diagnosis Phantom pain- Primary [...] above knee upon examination (HCC) Hx of skilled nursing use of blood thinners Encounter for long-term [...] Phantom limb (syndrome) documented in this encounter [facility] HealthcareEvaluation note* Diagnosis Phantom pain- Primary Phantom [...] above knee upon examination (HCC) 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 Encounter for long-term [...] gastroenteritis and colitis documented in this encounter [facility] HealthcareEvaluation note* Diagnosis Phantom pain- Primary [...] above knee upon examination (HCC) Hx of skilled nursing use of blood thinners Encounter for long-term [...] available for this section [facility] Discharge instructions No data available for [...] and content) DATE CREATED AUTHOR 03/15/2021 [facility] DATE CREATED AUTHOR AUTHOR'S ORGANIZ ATION 04/07/2022 [facility] DATE CREATED AUTHOR AUTHOR'S ORGANIZ ATION 06/24/2022 [facility] DATE CREATED AUTHOR AUTHOR'S ORGANIZ ATION 04/02/2024 [facility] DATE CREATED AUTHOR AUTHOR'S ORGANIZ ATION 11/25/2024 [facility] DATE CREATED AUTHOR AUTHOR'S ORGANIZ ATION 11/27/2024 [facility] EPIC Care Team (unrecognized sect ion and content) Team MemberRelationshipSpecialtyStart DateEnd Date Filipe Polanco MD PCP - GeneralFamily Medicine10/06/22Team MemberRelationshipSpecialtyStart DateEnd Date Filipe Polanco MD [address] [place] [address] PCP - GeneralFamily Medicine05/23/23 Luciana Nicolas NP [address] [place] [address] [facility]05/23/23Team MemberRelationshipSpecialtyStart DateEnd Date Filipe Polanco MD [address] [place] [address] [facility] - [facility]05/23/23 Luciana Nicolas NP [address] [place] [address] Nurse [facility]05/23/23Team MemberRelationshipSpecialtyStart DateEnd Date Filipe Polanco MD [address] [place] [address] PCP - [facility]05/23/23 Luciana Nicolas NP [address] [place] [address] [facility]05/23/23Team MemberRelationshipSpecialtyStart DateEnd Date Filipe Polanco MD [address] [place] [address] PCP - [facility]05/23/23 Luciana Nicolas NP [address] [place] [address] [facility]05/23/23Team MemberRelationshipSpecialtyStart DateEnd Date Filipe Polanco MD [address] [place] [address] PCP - Generalmily Medicine05/23/23 Luciana Nicolas NP [address] [place] [address] [facility]05/23/23Team MemberRelationshipSpecialtyStart DateEnd Date Filipe Polanco MD [address] [place] [address] PCP - [facility]05/23/23 Luciana Nicolas NP [address] [place] [address] [facility]05/23/23Team MemberRelationshipSpecialtyStart DateEnd Date Filipe Polanco MD [address] [place] [address] [facility]CP - [facility]05/23/23 Luciana Nicolas NP [address] [place] [address] PCP - [facility]05/23/24 Luciana Nicolas NP [address] [place] [address] [facility]05/23/23Team MemberRelationshipSpecialtyStart DateEnd Date Filipe Polanco MD [address] [place] [address] PCP - GeneralFamily Medicine05/23/23 Luciana Nicolas NP [address] [place] [address] PCP - [facility]05/23/24 Luciana Nicolas NP [address] [place] [address] [facility]05/23/23Team MemberRelationshipSpecialtyStart DateEnd Date Filipe Polanco MD [address] [place] [phone] PCP - [facility]05/23/23 Luciana Nicolas NP [address] [place] [address] PCP - [facility]05/23/24 Luciana Nicolas NP [address] [place] [address] [facility]/23/23Team MemberRelationshipSpecialtyStart DateEnd Date Filipe Polanco MD [address] [place] [address] [facility] - [facility]/23 Luciana Nicolas NP [address] [place] [address] PCP - [facility]05/23/24 Luciana Nicolas NP [address] [place] [address] [facility]/23Team MemberRelationshipSpecialtyStart DateEnd Date Filipe Polanco MD [address] [place] [address] PCP - [facility]05/23/23 Luciana Nicolas NP [address] [place] [address] PCP - [facility]05/23/24 Luciana Nicolas NP [address] [place] [address] [facility]05/23/23Team MemberRelationshipSpecialtyStart DateEnd Date Filipe Polanco MD [address] [place] [address] PCP - [facility]05/23/23 Luciana Nicolas NP [address] [place] [address] PCP [facility]05/23/24 Luciana Nicolas NP [address] [place] [address] [facility]05/23/23Team MemberRelationshipSpecialtyStart DateEnd Date Filipe Polanco MD [address] [place] [address] [facility]/23 Luciana Nicolas NP [address] [place] [address] PCP - [facility]05/23/24 Luciana Nicolas NP [address] [place] [address] [facility]05/23/23Team MemberRelationshipSpecialtyStart DateEnd Date Filipe Polanco MD [address] [place] [address] PCP - [facility]05/23/23 Luciana Nicolas NP [address] [place] [address] [facility] Luciana Nicolas NP [address] [place] [address] [facility]05/23/23Team MemberRelationshipSpecialtyStart DateEnd Date Filipe Polanco MD [address] [place] [address] PCP - [facility]05/23/23 Luciana Nicolas NP [address] [place] [address] PCP - [facility]05/23/24 Luciana Nicolas NP [address] [place] [address] [facility]05/23/23Team MemberRelationshipSpecialtyStart DateEnd Date Filipe Polanco MD [address] [place] [address] PCP - [facility]05/23/23 Luciana Nicolas NP [address] [place] [address] PCP - [facility]05/23/24 Luciana Nicolas NP [address] [place] [address] [facility]05/23/23Team MemberRelationshipSpecialtyStart DateEnd Date Filipe Polanco MD [address] [place] [address] PCP - [facility]05/23/23 Luciana Nicolas NP [address] [place] [address] PCP - [facility]05/23/24 Luciana Nicolas NP [address] [place] [address] [facility]05/23/23Team MemberRelationshipSpecialtyStart DateEnd Date Filipe Polanco MD [address] [place] [address] [facility]/23 Luciana Nicolas NP [address] [place] [address] PCP - [facility]05/23/24 Luciana Nicolas NP [address] [place] [address] [facility]05/23/23Team MemberRelationshipSpecialtyStart DateEnd Date Filipe Polanco MD [address] [place] [address] [facility]/23 Luciana Nicolas NP [address] [place] [address] PCP - [facility]05/23/24 Luciana Nicolas NP [address] [place] [address] [facility]05/23/23Team MemberRelationshipSpecialtyStart DateEnd Date Filipe Polanco MD [facility]23 Luciana Nicolas NP [address] [place] [address] PCP - [facility]05/23/24 Luciana Nicolas NP Nurse PractitionerFamily Medicine05/23/23 Reason for Visit (unrecogniz ed section and content) ReasonOnset DateCommentsMed [id number] DateCommentsMed Refill 4ReasonOnset DateCommentsMed Othwjy6106/25/2024ReasonOnset DateComments Med Kumqav0708/11/2024ReasonOnset DateCommentsMed Jkzbbi2309/22/2024ReasonOnset Date CommentsMed Gaogca4011/04/2024ReasonCommentsER Follow-up FOR RECORDS PERTAINING TO PATIENTS WHO [...] BE BASED ON THE PRIMARY CLINICAL RECORDS. [employer] [facility]. provides no warranty or guarantee of the accuracy or completeness of information in this document.
[2025-03-05 12:18] LABS: Microalbum Creatinine Ratio Ur 10.5 mg/g (0.0-29.9)
[2025-03-05 12:29] LABS: Alanine Aminotransferase 19 U/L (16-63); Albumin Globulin Ratio 0.8; Albumin Level 3.2 g/dL (3.4-5.0); Alkaline Phosphatase 85 U/L (46-116); Anion Gap 10.9; Aspartate Amino Transferase 18 U/L (15-37); Blood Urea Nitrogen 9.0 mg/dL (7.0-18.0); Calcium 8.6 mg/dL (8.5-10.1); Carbon Dioxide 30.7 mmol/L (21.0-32.0); Chloride 102 mmol/L (98-107); Cholesterol 193 mg/dL (<=200); Estimated GFR (African America >60 (>=60 mL/min/1.73m^2); Estimated GFR (Non-African Ame >60 (>=60 mL/min/1.73m^2); Globulin 4.0 g/dL; Glucose 95 mg/dL (74-106); HDL Cholesterol 59 mg/dL (40-60); Potassium 3.6 mmol/L (3.5-5.1); Sodium 140 mmol/L (136-145); Thyroid Stimulating Hormone 3.779 uIU/mL (0.358-3.740); Total Protein 7.2 g/dL (6.4-8.2); Triglycerides 131 mg/dL (<=150); VLDL CHOLESTEROL 26.2 mg/dL
[2025-03-05 13:16] LABS: Iron 78.0 ug/dL (65.0-175.0); Percent Iron Saturation 24.5 %; Total Iron Binding Capacity 319.0 ug/dL (250.0-450.0)
[2025-03-05 13:45] LABS: Ferritin 66.0 ng/mL (26.0-388.0)
[2025-03-06 08:09] LABS: Transferrin 273 mg/dL (149-313); Vitamin B12 431 pg/mL (232-1245)
== END 2025-03-05 11:08 | disposition home or self-care (01) ==
LOC: LAB 11:12
PROVIDERS: PCP Nurse Practitioner; Visit Provider Nurse Practitioner
DX: Z79.01 Long term (current) use of anticoagulants (principal); I10 Essential (primary) hypertension; D50.9 Iron deficiency anemia, unspecified; I48.0 Paroxysmal atrial fibrillation; E53.8 Deficiency of other specified B group vitamins; E55.9 Vitamin D deficiency, unspecified
CPT/HCPCS: 36415; 80053; 80061; 81001; 82043; 82306; 82570; 82607; 82728; 83540; 83550; 84439; 84443; 84466; 85025